=== PATIENT | male | born 1970 | race Caucasian/White ===

== ENCOUNTER 2024-10-28 13:10 | Outpatient (OUT) | payer MEDICAID, SELFPAY ==
[2024-10-28 13:29] LABS: Basophils Absolute Auto 0.2 10^3/uL (0.0-0.1); Basophils Percent Auto 1.2 % (0.2-2.0); Eosinophils Absolute Auto 0.3 10^3/uL (0.0-0.7); Eosinophils Percent Auto 2.4 % (0.9-7.0); Hemoglobin 14.3 g/dL (14.0-18.0); Immature Granulocytes Abs Auto 0.09 10^3/uL (0.00-0.03); Immature Granulocytes Pct Auto 0.7 % (0.0-0.5); Lymphocytes Absolute Auto 3.2 10^3/uL (1.2-3.8); Lymphocytes Percent Auto 24.9 % (20.5-60.0); Mean Corpuscular HGB Conc 33.3 g/dL (29.9-35.2); Mean Corpuscular Hemoglobin 30.4 pg (25.9-34.0); Mean Corpuscular Volume 91.5 fL (80.0-94.0); Mean Platelet Volume 8.8 fL (9.5-13.5); Monocytes Absolute Auto 1.4 10^3/uL (0.3-0.8); Monocytes Percent Auto 10.9 % (1.7-12.0); Neutrophils Absolute Auto 7.6 10^3/uL (1.4-6.5); Neutrophils Percent Auto 59.9 % (43.0-75.0); Platelet Count 411 10^3/uL (150-450); Red Cell Distribution Width 12.3 % (11.0-15.0); White Blood Count 12.7 10^3/uL (4.0-11.0)
[2024-10-28 13:48] LABS: Anion Gap 13.2; BUN Creatinine Ratio 14.7; Calcium 9.1 mg/dL (8.5-10.1); Carbon Dioxide 27.5 mmol/L (21.0-32.0); Chloride 103 mmol/L (98-107); Estimated GFR (African America >60 (>=60 mL/min/1.73m^2); Estimated GFR (Non-African Ame >60 (>=60 mL/min/1.73m^2); Glucose 123 mg/dL (74-106); Potassium 3.7 mmol/L (3.5-5.1); Sodium 140 mmol/L (136-145)
[2024-10-28 14:03] LABS: INR 1.02; Prothrombin Time 10.8 sec (9.0-11.6)
== END 2024-10-28 13:11 | disposition home or self-care (01) ==
LOC: LAB 13:12
PROVIDERS: PCP Family Medicine
DX: K40.90 Unilateral inguinal hernia, without obstruction or gangrene, not specified as recurrent (principal)
CPT/HCPCS: 36415; 80048; 85025; 85610; 87081

== ENCOUNTER 2024-11-20 13:33 | Outpatient (OUT) | payer MEDICAID, SELFPAY ==
[2024-11-20 14:09] LABS: Basophils Absolute Auto 0.1 10^3/uL (0.0-0.1); Basophils Percent Auto 0.9 % (0.2-2.0); Eosinophils Absolute Auto 0.2 10^3/uL (0.0-0.7); Eosinophils Percent Auto 1.2 % (0.9-7.0); Hematocrit 44.1 % (42.0-54.0); Hemoglobin 14.5 g/dL (14.0-18.0); Immature Granulocytes Abs Auto 0.06 10^3/uL (0.00-0.03); Immature Granulocytes Pct Auto 0.4 % (0.0-0.5); Lymphocytes Percent Auto 21.5 % (20.5-60.0); Mean Corpuscular HGB Conc 32.9 g/dL (29.9-35.2); Mean Corpuscular Hemoglobin 30.1 pg (25.9-34.0); Mean Corpuscular Volume 91.5 fL (80.0-94.0); Mean Platelet Volume 8.6 fL (9.5-13.5); Monocytes Absolute Auto 1.2 10^3/uL (0.3-0.8); Monocytes Percent Auto 8.7 % (1.7-12.0); Neutrophils Absolute Auto 9.3 10^3/uL (1.4-6.5); Neutrophils Percent Auto 67.3 % (43.0-75.0); Platelet Count 541 10^3/uL (150-450); Red Blood Count 4.82 10^6/uL (4.70-6.10); Red Cell Distribution Width 12.4 % (11.0-15.0); White Blood Count 13.9 10^3/uL (4.0-11.0)
[2024-11-20 14:22] LABS: Anion Gap 14.3; BUN Creatinine Ratio 9.5; Carbon Dioxide 26.1 mmol/L (21.0-32.0); Chloride 104 mmol/L (98-107); Estimated GFR (African America >60 (>=60 mL/min/1.73m^2); Estimated GFR (Non-African Ame >60 (>=60 mL/min/1.73m^2); Glucose 125 mg/dL (74-106); Magnesium 1.8 mg/dL (1.8-2.4); Potassium 3.4 mmol/L (3.5-5.1); Sodium 141 mmol/L (136-145)
== END 2024-11-20 13:34 | disposition home or self-care (01) ==
LOC: LAB 13:37
PROVIDERS: PCP Family Medicine
DX: I48.0 Paroxysmal atrial fibrillation (principal)
CPT/HCPCS: 36415; 80048; 83735; 85025

== ENCOUNTER 2025-03-15 15:24 | Outpatient (OUT) | payer OTHER, MEDICAID, SELFPAY ==
[2025-03-15 16:14] LABS: Hematocrit 45.6 % (42.0-54.0)
[2025-03-17 04:07] LABS: Estradiol 18.9 pg/mL (7.6-42.6); Luteinizing Hormone(LH) 3.9 mIU/mL (1.7-8.6); Testosterone 214 ng/dL (264-916)
== END 2025-03-15 15:25 | disposition home or self-care (01) ==
LOC: LAB 15:28
PROVIDERS: PCP Family Medicine; Visit Provider Urology
DX: E29.1 Testicular hypofunction (principal)
CPT/HCPCS: 36415; 82670; 83002; 84403; 85014

== ENCOUNTER 2025-04-16 12:52 | Outpatient (RCR) | payer OTHER, MEDICAID, SELFPAY | END 2025-07-01 06:53 | disposition home or self-care (01) | LOC: PT 12:52 | PROVIDERS: PCP Nurse Practitioner Family; Visit Provider Nurse Practitioner Family | DX: M25.512 Pain in left shoulder (principal) | CPT/HCPCS: 97014; 97110; 97112; 97140; 97163 ==

== ENCOUNTER 2025-05-04 12:33 | Outpatient (OUT) | payer OTHER, MEDICAID, SELFPAY ==
[2025-05-04 12:51] LABS: Hemoglobin 15.5 g/dL (14.0-18.0)
[2025-05-04] MEDS: ALBUTEROL SULFATE 2.5 MG/3 ML VIAL NEB IH (13:25)
--- NOTE | 2025-05-04 13:58 | CT_ITS ---
The [address] [address] Patient Name: REGIS ERNANDEZ MRN: [id number] date: 1970 Sex: M Assigned Patient Location: CARD Current Patient Location: Accession/Order Number: [id number] Exam Date: 05/05/2025 12:38 Report Date: 05/05/2025 12:44 At the request of: MICHEAL BEARDEN DO Procedure: CT lung screening low-dose CT Chest lung screening without contrast TECHNIQUE: Axial imaging with 2-D reconstruction. The CT exam was performed using one or more the following dose reduction techniques: Automated exposure control, adjustment of the MA and/or Kv according to patient size, or use of the iterative reconstruction technique. History: Lung screening. Current smoker COMPARISON: None THYROID: Unremarkable TRACHEA AND BRONCHI: Patent ESOPHAGUS: Unremarkable. HEART: Within normal limits PERICARDIAL EFFUSION: None CORONARY ARTERY CALCIFICATION: Moderate MEDIASTINUM: No adenopathy. No pneumoperitoneum. No mediastinal hematoma. PULMONARY JAVON: No hilar mass or adenopathy is seen. Calcified right hilar lymph nodes. Calcified right granuloma. THORACIC AORTA Unremarkable LUNG NODULE None LUNGS: Lungs are clear PLEURAL EFFUSION: None PNEUMOTHORAX: No pneumothorax seen. CHEST WALL: No abnormality AXILLA:Unremarkable BONY STRUCTURES Intact UPPER ABDOMEN: Images of the upper abdomen are noncontributory. CT/CT lung screening low-dose IMPRESSION: No visible lung nodule. FINAL ASSESSMENT: Negative. Lung-RADS Version 1.0 Assessment Category: 1 REMARKS: Continued annual screening with LDCT in 12 months is recommended. Impression dictated by: Chaka Hager M.D. 05/05/2025 12:44 PM Dictation Location: [employer] Electronically authenticated by: [id number] Y Date: 05/05/2025 12:44
--- OUTSIDE RECORDS SUMMARY | 2025-05-04 15:13 | XMS_ITS | CCD ---
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 Name Role Phone Kathy NOEL Primary Care Physician NILL ., DR LEON Admitting Unavailable NILL ., DR LEON Attending Unavailable MISC, DR CARCAMO Primary Care Unavailable NILL ., DR LEON Consulting Unavailable RAMESH MIRANDA Consulting Unavailable DIONNE NAVARRO Consulting Unavailable NILL ., DR LEON Admitting Unavailable NILL ., DR LEON Attending Unavailable MISC, DR CARCAMO Primary Care Unavailable SADIE, DR KATHY Petersen Admitting Unavailable SADIE, DR KATHY Petersen Attending Unavailable HOY ., DR CHARLES Admitting Unavailable HOY ., DR CHARLES Attending Unavailable MISC, DR CARCAMO Primary Care Unavailable MISC, DR CARCAMO Admitting Unavailable MISC, DR CARCAMO Attending Unavailable MISC, DR CARCAMO Primary Care Unavailable MISC, DR CARCAMO Consulting Unavailable ANA, CAMACHO Admitting Unavailable ANA CAMACHO Attending Unavailable MISC, DR CARCAMO Primary Care Unavailable MISC, DR CARCAMO Primary Care Unavailable HOY ., DR CHARLES Consulting Unavailable NADERER, DR JOSEPH Rae Admitting Unavailable NADERER, DR JOSEPH Rae Attending Unavailable SHANDRA ., DR ANDREW Rapp Consulting Unavailable RIMA, DR GERARDO Almanza Consulting Unavailable Kody Maciel Consulting Unavailable JOERER, DR JOSEPH Rae Consulting Unavailable RYDER .SHERITA Consulting Unavailruiz ARMENDARIZ .ELIDA Consulting Unavailable YEYO, ALYSSIA Consulting Unavailable SISTER, NINI Consulting Unavailable MISC, DR CARCAMO Primary Care Unavailable SHUKRI, DR RAVEN Nettles Consulting Unavailable HOY ., DR CHARLES Admitting Unavailable HOY ., DR CHARLES Attending Unavailable HOY ., DR CHARLES Consulting Unavailable TOMASZ NIEVES Consulting Unavailable GERARDO ROLLINS Attending Unavailable GERARDO ROLLINS Admitting Unavailable GIFTY RAMOS Consulting Unavailable GIDEON LUNA Primary Care Unavailable Gideon Luna MD Primary Care Provider Maxime Hull Primary Care Physician Wendy Zhong NP Unavailable Regis Guerrero DO Unavailable REGIS GUERRERO Attending Unavailable WENDY ZHONG Attending Unavailable Maxime Hull MD Primary Care Provider Varsha Peralta Attending Unavailable Maxime Hull Admitting Unavailable Maxime Hull Attending Unavailable Maxime Hull Attending Unavailable Maxime Hull Attending Unavailable Maxime Hull Attending Unavailable Maxime Hull Attending Unavailable No Pcp, No Pcp Primary Care Provider UnavailKathy Adams Primary Care Provider [phone] No Pcp, No Pcp Primary Care Provider UnavailNUNU Sun Admitting Unavailable TYLER PARKIN Attending Unavailable VIVIAN JIALANIIN Attending Unavailable NUNU PARK Attending Unavailable Maxime Hull MD Primary Care Provider Varsha Peralta Attending Unavailable Maxime Hull ESenthil Referring Unavailable Varsha Peralta Attending Unavailable Varsha Peralta Attending Unavailable Maxime Hull Admitting Unavailable Maxime Hull Attending Unavailable Maxime Hull Admitting Unavailable Maxime Hull Attending Unavailable Varsha Peralta Admitting Unavailable Varsha Peralta Attending Unavailable Edward URBAN Attending Unavailable Maxime Hull Referring Unavailable Maxime Hull Attending Unavailable Maxime Hull Attending Unavailable Maxime Hull Attending Unavailable Varsha Peralta MSenthil Attending Unavailable IRA, SERINA A Admitting Unavailable IRA, SERINA A Attending Unavailable IRA, SERINA A Attending Unavailable IRA, SERINA A Attending Unavailable Varsha Peralta MSenthil Admitting Unavailable Varsha Peralta MSenthil Attending Unavailable Varsha Peralta Referring Unavailable Allergies Allergy Classification Reported Allergen(s) Allergy Type Date of Onset Reaction(s) Facility (20 sources) busPIRone; 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: [buspirone] Drug Allergy 11-02-19 24 Nausea, Nausea Only [facility] (20 sources) gabapentin; 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: [gabapentin] Drug Allergy 11-02-19 24 Nausea, Nausea Only [facility] (20 sources) varenicline; 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: [varenicline] Drug Allergy 11-02-19 24 Palpitations, Nausea, Nausea Only [facility] (20 sources) venlafaxine; 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: [venlafaxine] Drug Allergy 11-02-19 24 Eruption of skin (disorder), Rash [facility] (1 source) busPIRone Drug Allergy [facility] (1 source) oneseed juniper pollen extract Drug Allergy [facility] (1 source) Sulfamethoxazole / Trimethoprim Drug Allergy 05-26-20 22 [facility] (1 source) varenicline Drug Allergy [facility] (18 sources) dilTIAZem Drug Allergy 10-21-19 24 Dizziness, Hypotension [facility] (18 sources) Sulfamethoxazole; 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: [SULFAMETHOXAZOLE] Drug Allergy 05-27-20 18 [facility] (19 sources) Sulfamethoxazole / Trimethoprim Drug Allergy 03-01-20 17 Itching [facility] (20 sources) Trimethoprim; 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: [TRIMETHOPRIM] Drug Allergy 05-27-20 18 [facility] (3 sources) dilTIAZem; 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: [DILTIAZEM] Drug Allergy 10-21-19 24 Dizziness, Other [facility] (2 sources) Sulfamethoxazole Propensity to adverse reactions 05-27-20 18 [facility] Medications Current Medications Medication Drug Class(es) Dates Sig (Normalized) Sig (Original) acetaminophen 500 mg oral tablet (18 sources) Start: 12-03-2023 take 1 tablet by mouth every six hours as needed for pain acetaminophen (TYLENOL EXTRA STRENGTH) 500 mg tablet Take 1 tablet (500 mg total) by mouth every 6 (six) hours as needed for pain. 30 tablet 12/03/2023 Active Start: 10-27-2023 take 1 tablet by ariel th every six hours as needed for pain acetaminophen (TYLENOL EXTRA STRENGTH) 500 mg tablet Take 1 tablet (500 mg total) by mouth every 6 (six) hours as needed for pain. 30 tablet 0 10/27/2023 Active Start: 10-21-2023 End: 10-22-2023 take 1 tablet by mouth every four hours as needed for pain and headache and fever acetaminophen (TYLENOL) tablet 650 mg alendronic acid 70 mg oral tablet (19 sources) Bisphosphonate Start: 09-28-2024 End: 10-12-2024 alendronate 70 mg Tab PLEASE SEE ATTACHED FOR DETAILED DIRECTIONS Start Date: 10/22/24 Status: Ordered Repeat number: 1 Start: 01-26-2021 Fosamax 70 mg Tab 70 mg = 1 tab(s), Oral, q7day, # 12 tab(s), Refills(s) 3 Start Date: 01/26/21 Status: Ordered amitriptyline hydrochloride 25 mg oral tablet (20 sources) Tricyclic Antidepressant Start: 07-20-2024 End: 07-20-2025 take 1 tablet by mouth in the morning amitriptyline (ELAVIL) 25 mg tablet Take 1 tablet (25 mg total) by mouth in the morning. 08/12/2024 Active Start: 01-26-2021 take 1 tablet by ariel th once daily at bedtime amitriptyline 50 mg Tab 50 mg = 1 tab(s), Oral, Once a day (at bedtime), # 90 tab(s), Refills(s) 0 Start Date: 01/26/21 Status: Ordered apixaban 5 mg oral tablet (20 sources) Factor Xa Inhibitor Start: 06-13-2022 End: 04-01-2024 take 1 tablet by mouth in the morning, then take 1 tablet by mouth at bedtime apixaban (ELIQUIS) 5 mg tablet Take 1 tablet (5 mg total) by mouth in the morning and 1 tablet (5 mg total) before bedtime. 60 tablet 04/01/2024 Active aspirin 81 mg chewable tablet (10 sources) Platelet Aggregation Inhibitor, Nonsteroidal Anti-inflammatory Drug Start: 11-21-2022 take 1 tablet by mouth once daily aspirin 81 mg Chew Tab 81 mg = 1 tab(s), Oral, Daily, # 30 tab(s), Refills(s) 3, Pharmacy: [facility]/pharmacy #[id number], 157, cm, 11/21/22 7:04:00 EST, Height/Length Dosing, 70.3, kg, 11/21/22 7:04:00 EST, Weight Dosing Start Date: 11/21/22 Status: Ordered Start: 08-24-2020 take 1 tablet by ariel th once daily aspirin 81 mg Oral EC Tab 81 mg = 1 tab(s), Oral, Daily, # 90 tab(s), Refills(s) 0 Start Date: 08/24/20 Status: Ordered atorvastatin 80 mg oral tablet (20 sources) HMG-CoA Reductase Inhibitor Start: 05-19-2024 take 1 tablet by mouth in the morning atorvastatin (LIPITOR) 80 mg tablet Take 1 tablet (80 mg total) by mouth in the morning. 90 tablet 3 05/19/2024 Active Start: 11-21-2022 End: 05-14-2024 take 1 tablet by mouth in the morning atorvastatin (LIPITOR) 80 mg tablet Take 1 tablet (80 mg total) by mouth in the morning. 90 tablet 3 05/19/2024 Active carBAMazepine 200 mg oral tablet (12 sources) Mood Stabilizer Start: 09-21-2020 take 1 tablet by mouth once daily carbamazepine 200 mg Tab 200 mg = 1 tab(s), Oral, Daily, Refills(s) 0 Start Date: 09/21/20 Status: Ordered clopidogrel 75 mg oral tablet (20 sources) P2Y12 Platelet Inhibitor Start: 07-03-2024 take 1 tablet by mouth in the morning clopidogreL (PLAVIX) 75 mg tablet Take 1 tablet (75 mg total) by mouth in the morning. 90 tablet 2 07/03/2024 Active Start: 05-19-2024 take 1 tablet by ariel th in the morning clopidogreL (PLAVIX) 75 mg tablet Take 1 tablet (75 mg total) by mouth in the morning. 90 tablet 3 05/19/2024 Active Start: 11-21-2022 End: 05-14-2024 take 1 tablet by mouth once daily clopidogrel 75 mg Tab 75 mg = 1 tab(s), Oral, Daily, # 90 tab(s), Refills(s) 3, Pharmacy: [facility]/pharmacy #[id number], 157, cm, 11/21/22 7:04:00 EST, Height/Length Dosing, 70.3, kg, 11/21/22 7:04:00 EST, Weight Dosing Start Date: 11/21/22 Status: Ordered Quantity: 90.0 Unit: tab(s) Repeat number: 4 dilTIAZem hydrochloride 30 mg oral tablet (10 sources) Calcium Channel Jolly Start: 06-13-2022 take 1 tablet by mouth three times daily diltiazem 30 mg Tab 30 mg = 1 tab(s), Oral, TID, Refills(s) 0 Start Date: 06/13/22 Status: Ordered empagliflozin 10 mg oral tablet (20 sources) Sodium-Glucose Cotransporter 2 Inhibitor Start: 04-23-2024 take 1 tablet by mouth in the morning empagliflozin (JARDIANCE) 10 mg tablet tablet Take 1 tablet (10 mg total) by mouth in the morning. 30 tablet 11 04/23/2024 Active methylphenidate hydrochloride 10 mg oral tablet (12 sources) Central Nervous System Stimulant Start: 08-24-2020 take 1 tablet by mouth twice daily Ritalin 10 mg oral tablet 10 mg = 1 tab(s), Oral, BID, Refills(s) 0 Start Date: 08/24/20 Status: Ordered 24 hr metoprolol succinate 100 mg extended release oral tablet (20 sources) beta-Adrenergic Jolly Start: 01-13-2025 take 1 tablet by mouth every twenty-four hours in the morning metoprolol succinate XL (TOPROL XL) 100 mg 24 hr tablet Take 1 tablet (100 mg total) by mouth in the morning. 90 tablet 3 01/13/2025 Active Start: 07-20-2024 take 1 tablet by ariel th once daily metoprolol succinate 50 mg ER Tab 50 mg = 1 tab(s), Oral, Daily, Refills(s) 0 Start Date: 07/20/24 Status: Ordered Repeat number: 1 Start: 12-03-2023 End: 01-13-2025 take 1 tablet by mouth every twenty-four hours in the morning metoprolol succinate XL (TOPROL XL) 50 mg 24 hr tablet Take 1 tablet (50 mg total) by mouth in the morning. 30 tablet 04/01/2024 01/13/2025 Discontinued Start: 11-08-2023 take 1 tablet by ariel th every twenty-four hours in the morning metoprolol succinate XL (TOPROL XL) 50 mg 24 hr tablet Take 1 tablet (50 mg total) by mouth in the morning. 90 tablet 3 11/08/2023 Active Start: 10-21-2023 End: 11-08-2023 take 1 tablet by mouth every twenty-four hours in the morning metoprolol succinate XL (TOPROL XL) 25 mg 24 hr tablet Take 1 tablet (25 mg total) by mouth in the morning. 30 tablet 1 10/23/2023 11/08/2023 Discontinued Start: 10-21-2023 End: 10-21-2023 metoprolol tartrate (LOPRESS OR) tablet 50 mg Start: 10-20-2023 End: 10-21-2023 metoprolol (LOPRESSOR) injec tion 5 mg sacubitril 24 mg / valsartan 26 mg oral tablet (19 sources) Angiotensin 2 Receptor Jolly Start: 07-20-2024 take 1 tablet by mouth twice daily Entresto 24 mg-26 mg oral tablet 1 tab(s), Oral, BID, Refill(s) 0 Start Date: 07/20/24 Status: Ordered Repeat number: 1 Start: 04-23-2024 take 1 tablet by ariel th in the morning sacubitriL-valsartan (ENTRESTO) 24-26 mg tablet Take 1 tablet by mouth in the morning and 1 tablet before bedtime. 60 tablet 11 04/23/2024 Active simethicone 125 mg chewable tablet (6 sources) Start: 01-12-2024 End: 08-26-2024 take 1 tablet by mouth every six hours as needed simethicone (MYLICON) 125 mg chewable tablet Chew 1 tablet (125 mg total) and swallow every 6 (six) hours as needed for flatulence. 30 tablet 01/12/2024 08/26/2024 Discontinued spironolactone 25 mg oral tablet (20 sources) Aldosterone Antagonist Start: 04-23-2024 End: 04-01-2025 take 1 tablet by mouth in the morning spironolactone (ALDACTONE) 25 mg tablet TAKE 1 TABLET BY MOUTH IN THE MORNING 90 tablet 2 04/01/2025 Active Symbicort 160/4.5 inhalation aerosol with adapter (13 sources) Start: 11-23-2024 take 2 puff(s) by inhalation twice daily Symbicort 160/4.5 inhalation aerosol with adapter 2 puff(s), Inhalation, BID, 10.3 gm, Refill(s) 0, [facility]/pharmacy #[id number], 155, cm, 11/23/24 14:48:00 EDT, Height/Length Dosing, 73.6, kg, 11/23/24 14:48:00 EDT, Weight Dosing Start Date: 11/23/24 Status: Ordered Quantity: 10.3 Unit: g Repeat number: 1 Indications: Obesity, unspecified; Body mass index [BMI] 30.0-30.9, adult; Other male erectile dysfunction; Mixed hyperlipidemia; Tobacco use; Chronic obstructive pulmonary disease, unspecified; Paroxysmal atrial fibrillation; Presence of coronary angioplasty implant and graft; Unilateral inguinal hernia, without obstruction or gangrene, not specified as recurrent; Prediabetes; Pain in left shoulder; Start: 07-10-2021 take 2 puff(s) by in halation twice daily Symbicort 160/4.5 inhalation aerosol with adapter 2 puff(s), Inhalation, BID, 3 EA, Refill(s) 1, [facility]/pharmacy #[id number], 158, cm, 09/21/20 14:58:00 EST, Height/Length Dosing, 74.3, kg, 09/21/20 14:58:00 EST, Weight Dosing Start Date: 07/10/21 Status: Ordered tamsulosin hydrochloride 0.4 mg oral capsule (7 sources) alpha-Adrenergic Jolly Start: 09-02-2024 take 1 capsule by mouth in the morning tamsulosin (FLOMAX) 0.4 mg capsule Take 1 capsule (0.4 mg total) by mouth in the morning. 09/02/2024 Active 60 actuat tiotropium 0.0025 mg/actuat inhalation spray (12 sources) Anticholinergic Start: 07-07-2021 take 2 puff(s) by inhalation once daily Spiriva Respimat 60 ACT 2.5 mcg/inh inhalation aerosol = 2 puff(s), Inhalation, Daily, # 3 EA, Refills(s) 1, Pharmacy: [facility]/pharmacy #[id number], 158, cm, 09/21/20 14:58:00 EST, Height/Length Dosing, 74.3, kg, 09/21/20 14:58:00 EST, Weight Dosing Start Date: 07/07/21 Status: Ordered traMADol hydrochloride 50 mg oral tablet (1 source) Opioid Agonist Start: 2023 take 1 tablet by mouth every six hours traMADOL 50 mg Tab 50 mg = 1 tab(s), Oral, q6hr, 20 day supply, # 30 tab(s), Refills(s) 0, Pharmacy: [facility]/pharmacy #[id number], 157.5, cm, 05/03/23 10:55:00 EDT, Height/Length Dosing, 65, kg, 05/03/23 10:55:00 EDT, Weight Dosing Start Date: 05/03/23 Status: Ordered zolpidem tartrate 10 mg oral tablet (12 sources) gamma-Aminobutyric Acid-ergic Agonist Start: 08-24-2020 take 5 mg by mouth once daily at bedtime as needed for sleep Ambien 10 mg Tab 5 mg = 0.5 tab(s), Oral, Once a day (at bedtime), PRN for sleep, Refills(s) 0 Start Date: 08/24/20 Status: Ordered Completed/Discontinued Medications Medication Drug Class(es) Dates Sig (Normalized) Sig (Original) Albuterol (Eqv-ProAir HFA) 90 mcg/inh inhalation aerosol (1 source) Start: 11-23-2024 take 18 g by inhalation every six hours Albuterol (Eqv-ProAir HFA) 90 mcg/inh inhalation aerosol 180 mcg, 2 inh, Inhalation, q6hr, 18 gm, Refill(s) 0, [facility]/pharmacy #[id number], 155, cm, 11/23/24 14:48:00 EDT, Height/Length Dosing, 73.6, kg, 11/23/24 14:48:00 EDT, Weight Dosing Start Date: 11/23/24 Status: Ordered Quantity: 18.0 Unit: g Repeat number: 1 Indications: Other male erectile dysfunction; Chronic obstructive pulmonary disease, unspecified; Tobacco use; Paroxysmal atrial fibrillation; Pain in left shoulder; Unilateral inguinal hernia, without obstruction or gangrene, not specified as recurrent; Body mass index [BMI] 30.0-30.9, adult; Mixed hyperlipidemia; Obesity, unspecified; Prediabetes; Presence of coronary angioplasty implant and graft; albuterol HFA 90 mcg/inh MDI (12 sources) Start: 2023 take 1 dose by inhalation every six hours albuterol HFA 90 mcg/inh MDI 2 puff(s), Inhalation, q6hr for wheezing, 1 EA, Refill(s) 0, [facility]/pharmacy #[id number], 157.5, cm, 05/03/23 10:55:00 EDT, Height/Length Dosing, 65, kg, 05/03/23 10:55:00 EDT, Weight Dosing Start Date: 05/03/23 Status: Ordered Start: 08-24-2020 take 1 dose by inhal ation every six hours albuterol HFA 90 mcg/inh MDI 2 puff(s), Inhalation, q6hr for wheezing, 1 EA, Refill(s) 0, [facility]/pharmacy #[id number], 158, cm, 08/24/20 14:09:00 EST, Height/Length Dosing, 74.6, kg, 08/24/20 14:09:00 EST, Weight Dosing Start Date: 08/24/20 Status: Ordered amiodarone hydrochloride 200 mg oral tablet (20 sources) Antiarrhythmic Start: 07-03-2024 End: 01-13-2025 take 1 tablet by mouth in the morning amiodarone (PACERONE) 200 mg tablet Take 1 tablet (200 mg total) by mouth in the morning. 90 tablet 2 07/03/2024 01/13/2025 Discontinued Start: 05-19-2024 take 1 tablet by ariel in the morning amiodarone (PACERONE) 200 mg tablet Take 1 tablet (200 mg total) by mouth in the morning. 90 tablet 3 05/19/2024 Active Start: 01-17-2024 End: 05-14-2024 take 1 tablet by mouth in the morning amiodarone (PACERONE) 200 mg tablet Take 1 tablet (200 mg total) by mouth in the morning. 30 tablet 04/01/2024 05/14/2024 Discontinued (Reorder) take 2 tablets by mo [facility] once daily amiodarone (Pacerone) 100 MG tablet Take 200 mg by mouth Daily Active benzonatate 100 mg oral capsule (3 sources) Non-narcotic Antitussive Start: 10-27-2023 End: 11-08-2023 take 1 capsule by mouth every eight hours benzonatate (TESSALON PERLES) 100 mg capsule Take 1 capsule (100 mg total) by mouth every 8 (eight) hours. 21 capsule 0 10/27/2023 11/08/2023 Discontinued 100 ml calcium gluconate 20 mg/ml injection (1 source) Start: 10-21-2023 End: 10-22-2023 calcium gluconate IVPB 2000 mg/100 mL (20 mg/mL premix) calcium gluconate 3,000 mg in sodium chloride 0.9 % 100 mL IVPB (1 source) Start: 10-21-2023 End: 10-22-2023 calcium gluconate 3,000 mg in sodium chloride 0.9 % 100 mL IVPB calcium gluconate 4,000 mg in sodium chloride 0.9 % 250 mL IVPB (1 source) Start: 10-21-2023 End: 10-22-2023 calcium gluconate 4,000 mg in sodium chloride 0.9 % 250 mL IVPB 2 ml digoxin 0.25 mg/ml injection (4 sources) Cardiac Glycoside Start: 10-21-2023 End: 10-21-2023 digoxin (LANOXIN) injection 250 mcg Start: 10-21-2023 End: 10-21-2023 digoxin (LANOXIN) injection 170 mcg Start: 06-13-2022 take 1 tablet by ariel th once daily digoxin 250 mcg (0.25 mg) Tab 250 mcg = 1 tab(s), Oral, Daily, Refills(s) 0 Start Date: 06/13/22 Status: Ordered docusate sodium 50 mg / sennosides, correction 8.6 mg oral tablet (1 source) Start: 10-21-2023 End: 10-22-2023 take 1 tablet by mouth every twelve hours as needed for constipation sennosides-docusate sodium (SENOKOT-S) 8.6-50 mg 1 tablet glucagon (rdna) 1 mg injection (1 source) Antihypoglycemic Agent Start: 10-21-2023 End: 10-22-2023 glucagon HCL injection 1 mg 150 ml glucose 50 mg/ml injection (3 sources) Start: 10-21-2023 End: 10-22-2023 dextrose (GLUTOSE) 40 % gel 15 g Start: 10-21-2023 End: 10-22-2023 dextrose 50 % in water (D50W ) 50% solution 25 mL Start: 10-21-2023 End: 10-22-2023 dextrose 5 % (D5W) infusion 1 ml heparin sodium, porcine 5000 unt/ml injection (1 source) Unfractionated Heparin, Anti-coagulant Start: 10-21-2023 End: 10-21-2023 heparin (porcine) injection 5,000 Units kit for Tc 99m-sestamibi injection 10 millicurie (1 source) Start: 10-22-2023 End: 10-22-2023 kit for Tc 99m-sestamibi injection 10 millicurie kit for Tc 99m-sestamibi injection 30 millicurie (1 source) Start: 10-22-2023 End: 10-22-2023 kit for Tc 99m-sestamibi injection 30 millicurie 50 ml magnesium sulfate 40 mg/ml injection (2 sources) Start: 10-21-2023 End: 10-22-2023 magnesium sulfate IVPB 2000 mg/50 mL in iso-osmotic water (40 mg/mL premix) Start: 10-21-2023 End: 10-22-2023 magnesium sulfate IVPB 4000 mg/100 mL in iso-osmotic water (40 mg/mL premix) metoprolol 1 mg/mL Inj (2 sources) Start: 11-21-2022 End: 11-21-2022 inject 5 mg intravenously once metoprolol 1 mg/mL Inj 5 mg = 5 mL, Injection, IV Push, Once, Stop date 11/21/22 13:27:00 EST, NOW, Start date 11/21/22 13:27:00 EST, 11/21/22 13:27:00 EST Start Date: 11/21/22 Stop Date: 11/21/22 Status: Completed Start: 11-21-2022 End: 11-21-2022 inject 5 mg intravenously once metoprolol 1 mg/mL Inj 5 mg = 5 mL, Injection, IV Push, Once, Stop date 11/21/22 10:55:00 EST, NOW, Start date 11/21/22 10:55:00 EST, 11/21/22 10:55:00 EST Start Date: 11/21/22 Stop Date: 11/21/22 Status: Completed 2 ml ondansetron 2 mg/ml injection (1 source) Serotonin-3 Receptor Antagonist Start: 10-21-2023 End: 10-22-2023 take 4 mg intravenously every eight hours as needed for nausea and vomiting ondansetron (PF) (ZOFRAN) injection 4 mg pantoprazole 40 mg delayed release oral tablet (1 source) Proton Pump Inhibitor Start: 10-21-2023 End: 10-22-2023 pantoprazole (PROTONIX) EC tablet 40 mg Potassium Chloride (1 source) Start: 10-21-2023 End: 10-22-2023 potassium chloride (KLOR-CON M 20) CR tablet 30-50 mEq regadenoson (LEXISCAN) injection 0.4 mg (1 source) Start: 10-22-2023 End: 10-22-2023 regadenoson (LEXISCAN) injection 0.4 mg 125 ml sodium chloride 9 mg/ml prefilled syringe (9 sources) Start: 10-20-2023 End: 10-22-2023 sodium chloride 0.9 % infusion Start: 10-20-2023 End: 10-22-2023 sodium chloride 0.9 % flush 3 mL sodium phosphate 20 mmol in sodium chloride 0.9 % 250 mL IVPB (1 source) Start: 10-21-2023 End: 10-22-2023 sodium phosphate 20 mmol in sodium chloride 0.9 % 250 mL IVPB Problems Active Problems Problem Classification Problem Date Documented Da te Episodic/Chronic Abdominal hernia (20 sources) Inguinal hernia; 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: [Unilateral inguinal hernia, without obstruction or gangrene, not specified as recurrent] Onset: 10-02-2022 Episodic Acute myocardial infarction (1 source) Non-ST elevation (NSTEMI) myocardial infarction; 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: [NON-ST ELEVATION MYOCARDIAL INFARCT] Onset: 07-23-2022 Chronic Alcohol-related disorders (18 sources) History of alcohol abuse 08-24-2020 Chronic Anal and rectal conditions (4 sources) Anorectal disorder; 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: [Other specified diseases of anus and rectum] Onset: 10-02-2022 Episodic Anxiety disorders (20 sources) Anxiety; 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: [Anxiety disorder, unspecified] Onset: 10-21-2023 08-06-2016 Chronic Asthma (20 sources) Asthma; 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: [Unspecified asthma, uncomplicated] Onset: 10-21-2023 08-08-2016 Chronic Calculus of urinary tract (11 sources) Kidney stone 08-24-2020 Episodic Cardiac dysrhythmias (20 sources) Paroxysmal atrial fibrillation; 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: [Paroxysmal atrial fibrillation] Onset: 05-13-2022 Resolved: 11-08-2023 Chronic Chronic obstructive pulmonary disease and bronchiectasis (20 sources) Panacinar emphysema; 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: [Panlobular emphysema] Onset: 05-13-2022 Chronic Coronary atherosclerosis and other heart disease (19 sources) Unstable angina; 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: [Coronary arteriosclerosis] Onset: 11-08-2023 11-08-2023 Chronic Coronary atherosclerosis and other heart disease (12 sources) Stent in anterior descending branch of left coronary artery 12-01-2022 Episodic Diabetes mellitus without complication (20 sources) Prediabetes; 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: [Prediabetes] Onset: 05-14-2022 Episodic Disorders of lipid metabolism (20 sources) Mixed hyperlipidemia; 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: [Hyperlipidemia, unspecified] Onset: 10-30-2022 04-16-2022 Chronic Gastrointestinal hemorrhage (8 sources) Rectal hemorrhage; 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: [Melena] Onset: 12-03-2022 06-24-2022 Episodic Genitourinary symptoms and ill-defined conditions (5 sources) Microscopic hematuria; 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: [Asymptomatic microscopic hematuria] Onset: 12-11-2022 Episodic Hyperplasia of prostate (13 sources) Benign prostatic hypertrophy with outflow obstruction; 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: [Benign prostatic hyperplasia with lower urinary tract symptoms] Onset: 12-11-2022 Chronic Nutritional deficiencies (18 sources) Decreased vitamin D 04-16-2022 Chronic Osteoarthritis (19 sources) Arthritis; 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: [Unspecified osteoarthritis, unspecified site] Onset: 07-23-2022 08-06-2016 Chronic Comment on above: neck Other aftercare (16 sources) Long-term current use of anticoagulant; 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: [manager terminal (current) use of anticoagulants] Onset: 09-02-2024 06-24-2022 Episodic Other aftercare (1 source) correction (current) use of anticoagulants; 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: [PALLIATIVE SENIOR NP CURRNT USE ANTICOAGULANTS] Onset: 10-30-2022 Episodic Other aftercare (1 source) Long-term current use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 Screen for colon cancer Patient Survey You may receive a survey via text or e-mail asking about your office visit. Please share your experience with us by completing your survey. We appreciate your feedback and thank you for choosing us for your care. [facility] Family Medicine Office/Clini c Noteon 10-22-2024 Family Medicine Office/Clini c Note Family Medicine Office/Clinic Note Chief Complaint 3m follow up Evaluation and management of chronic conditions and shoulder pain. HPI Staff 3m med follow up ALEJANDRO Referred to for hernia. [facility] completed 09/23/24. Then referred to [facility]. Consult completed 10/07/24. Scheduled for hernia surgery 11/02/24. Re referred to Urology. Who also referred to [facility] due to bladder involvement with inguinal hernia. Pt to continue Cardio follow ups for A fib & presence of cardiac stent. (potential ablation therapy). Scheduled for ablation 11/25/24. Hgb A1C %: 6.4 % High (07/20/24 14:10:00) Concerned with Lt shoulder. Unable to to fully move it for the past few wks. History of Present Illness The patient is a 54-year-old male presenting with chronic conditions and new shoulder pain. The patient has a history of paroxysmal atrial fibrillation, for which he is seeing a plastering supervisor and undergoing an ablation to prevent anticoagulation. He reports intermittent chest pain being addressed by cardiology. He continues use of medications including anticoagulants, and states compliance with Plavix and statins. The patient is also managing prediabetes and plans to undergo an A1C test today. Concerning respiratory issues, the patient reports frequent shortness of breath and has a history of COPD, noting decreased exercise tolerance with activities such as stair climbing. In the past, he has used Albuterol, Symbicort, and Spiriva, but these medications are now running low. Cymbicort was prescribed previously but is not currently on his medication list. The patient is a smoker, consuming about half a pack per day. He also reports shoulder pain that started approximately three weeks ago. The pain affects movements requiring reaching behind as well as movements across and above the shoulder. The patient does not report sleeping on this affected shoulder and describes stiffness and occasional immobilization, particularly severe in the mornings. - A1C test to monitor prediabetes. - Encouraged smoking cessation discussions, current use approximately half a pack per day. - Lung function evaluation and recommendation for possible pulmonology follow-up due to COPD and dyspnea on exertion. - Lipid panel testing to monitor hyperlipidemia status. - Referral to urology for erectile dysfunction evaluation. Review of Systems PHQ Score Initial Depression Screen Score: 0 SCORE Physical Exam Vitals & Measurements T: 36.9 ???C(Tympanic) HR: 85(Peripheral) RR: 18 BP: 136/84 SpO2: 98% HT: 61 in HT: 155 cm WT: 74.2 kg WT: 163.583 lb BMI: 30.88 General: alert, no acute distress ENMT: oral mucosa moist Cardiovascular: Regular rate and rhythm, normal peripheral perfusion, in sinus rhythm Respiratory: Lungs clear to auscultation, respirations non labored, reports frequent shortness of breath Extremities: no deformity, no trauma, right shoulder stiffness and pain with movement Neurological: oriented x 4, level of consciousness appropriate for age, CN II-XII intact, motor strength equal & normal bilaterally, speech normal Abdomen: Soft, Non-tender, Non-distended, + Bowel sounds Assessment/Plan 1. BMI 30.0-30.9,adult (Z68.30: Body mass index [BMI] 30.0-30.9, adult) Ordered: albuterol, 180 mcg, 2 inh, Inhalation, q6hr, 18 gm, Refill(s) 0, [id number], 155, cm, 10/22/24 14:06:00 EST, Height/Length Dosing, 74.2, kg, 10/22/24 14:06:00 EST, Weight Dosing budesonide-formoter ol, 2 puff(s), Inhalation, BID, 10.3 gm, Refill(s) 0, [id number], 155, cm, 10/22/24 14:06:00 EST, Height/Length Dosing, 74.2, kg, 10/22/24 14:06:00 EST, Weight Dosing [facility] External Ambulatory Referral Physical Therapy Evaluation - External Facility 2. Obesity (BMI 30-39.9) (E66.9: Obesity, unspecified) Monitor weight, emphasize importance of lifestyle modification including diet and exercise. Ordered: albuterol, 180 mcg, 2 inh, Inhalation, q6hr, 18 gm, Refill(s) 0, [id number], 155, cm, 10/22/24 14:06:00 EST, Height/Length Dosing, 74.2, kg, 10/22/24 14:06:00 EST, Weight Dosing budesonide-formoter ol, 2 puff(s), Inhalation, BID, 10.3 gm, Refill(s) 0, [id number], 155, cm, 10/22/24 14:06:00 EST, Height/Length Dosing, 74.2, kg, 10/22/24 14:06:00 EST, Weight Dosing [facility] External Ambulatory Referral Physical Therapy Evaluation - External Facility 3. Smoker (Z72.0: Tobacco use) Encouraged cessation, reduction can improve COPD and atrial fibrillation outcomes. Ordered: albuterol, 180 mcg, 2 inh, Inhalation, q6hr, 18 gm, Refill(s) 0, [id number], 155, cm, 10/22/24 14:06:00 EST, Height/Length Dosing, 74.2, kg, 10/22/24 14:06:00 EST, Weight Dosing budesonide-formoter ol, 2 puff(s), Inhalation, BID, 10.3 gm, Refill(s) 0, [id number], 155, cm, 10/22/24 14:06:00 EST, Height/Length Dosing, 74.2, kg, 10/22/24 14:06:00 EST, Weight Dosing [facility] External Ambulatory Referral Physical Therapy Evaluation - External Facility 4. Hyperlipemia, mixed (E78.2: Mixed hype (more content not included)... [facility] Comment on above: Result Comment: Elec tronically Signed By: Valerio LINDQUIST, Maxime Tolliver\.br\Date and Time Signed: 10/22/24 14:49 EST 36on 10-21-2024 36 Patient significant other called with update. Patient saw Cardiology 10/20/2024, please refer to cardiology office for clearance. Clearance received and surgery scheduled. 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 [facility] POCT EKGon 10-20-2024 [employer] 29on 10-07-2024 29 Addended by: MELANI CRAFT on: 10/07/2024 02:28 PM Modules accepted: Orders [facility] 29 Addended by: MELANI CRAFT on: 10/21/2024 11:36 AM Modules accepted: Orders [facility] Consulton 10-07-2024 Consult [id number] Otilio Horta 1970 M Date Provider Department Center 10/07/2024 [id number] SURG [place] Fl No family history on file Level of Service:62535 [place] OFFICE/OUTPATIENT NEW LOW MDM 30 MINUTES Reason for Visit and Comments: Consult [484] - Patient here for an eval/consult of his right reducible inguinal hernia. Patient reports discomfort and pain in the area. [facility] HPon 10-07-2024 HP Subjective Patient ID: Regis Horta is a 54 y.o. male who presents for Consult (Patient here for an eval/consult of his right reducible inguinal hernia. Patient reports discomfort and pain in the area. ). HPI 54 years old white male is visiting for right groin bulging and discomfort. He denies of nausea, vomiting, abdominal pain. Review of Systems Constitutional: Negative. HENT: Negative. Eyes: Negative. Respiratory: Negative. Cardiovascular: Negative. Gastrointestinal: Positive for abdominal pain. Endocrine: Negative. Genitourinary: Positive for difficulty urinating and frequency. Musculoskeletal: Negative. Skin: Negative. Allergic/Immunologi c: Negative. Neurological: Negative. Hematological: Bruises/bleeds easily. Objective Visit Vitals BP 133/83 (BP Location: Left arm, Patient Position: Sitting) Pulse 92 Temp 36.4 ???C (97.5 ???F) Resp 17 Physical Exam HENT: Head: Atraumatic. Cardiovascular: Rate and Rhythm: Normal rate. Pulmonary: Effort: Pulmonary effort is normal. Abdominal: General: Abdomen is flat. Palpations: Abdomen is soft. Hernia: A hernia is present. Comments: Reducible right inguinal hernia. Questionable left inguinal bulging. Musculoskeletal: Cervical back: Neck supple. Neurological: Mental Status: He is alert and oriented to person, place, and time. Assessment/Plan Right, possible bilateral inguinal hernia Robotic right possible bilateral inguinal hernia repair with mesh was offered to patient, informed consent was obtained. Patient need to hold Plavix 5 days before the surgery, Eliquis 2 days before the surgery. Patient need cardiac clearance. No diagnosis found. No orders of the defined types were placed in this encounter. No results found for this or any previous visit (from the past 36 hour(s)). No follow-ups on file. Normal [facility] General Surgery Office/Clini c Noteon 09-24-2024 General Surgery Office/Clini c Note General Surgery Office/Clinic Note Chief Complaint reevaluate hernia [facility] Staff 54 year old male presents on consultation from Dr. Hull to reevaluate right inguinal hernia. Last evaluation completed 09/2022. Patient was to have colonoscopy completed then return to office for reevaluation of hernia. In the interim, patient had cardiac stenting 11/2022 and was unable to hold anticoagulation therapy to proceed with surgery. CT abdomen/pelvis completed 12/2023 while in ED with herniation of bladder into inguinal canal. Patient continues on Plavix and Eliquis for a.fib. History of Present Illness 54 yo male with h/o CAD, paroxysmal atrial fibrillation, on Eliquis and Plavix, htn, hyperlipidemia, traumatic brain injury, narcolepsy, COPD, BPH, tobacco abuse, presents for reevaluation of right inguinal hernia; abd/pelvic ct scan done in [place] 12/2023 with fat containing right inguinal hernia, also portion of bladder within hernia; discomfort prior to urination, relieved after urinating; hernia reducible, no skin changes, no N/V or bowel changes; on Plavix and Eliquis, no NSAID use; patient to have cardiac ablation in November; smokes 1 ppd. Review of Systems PHQ Score Initial Depression Screen Score: 0 SCORE ROS - Provider Constitutional: no fever, no sweats, no weight loss. Eyes: no glasses, no blurred vision, no visual loss. ENMT: no dentures, no hoarseness, no swallowing difficulties, no hearing loss, no ear infection(s), no nose bleeds. Cardiovascular: normal blood pressure, no chest pain, regular heartbeat, no heart murmur. Respiratory: no shortness of breath, no cough, no asthma, no wheezing. Gastrointestinal: no nausea, no vomiting, no diarrhea, no constipation, no blood in stool, no change in bowel habits, no abdominal pain, no hepatitis. Genitourinary: no kidney stones, no urine infection, no dysuria. Musculoskeletal: no pain, no weakness. Skin: no changing moles, no rash, no skin lumps. Neurologic: no seizures, no epilepsy, no headache. Psychiatric: no emotional or psychiatric problem. Heme/Lymph: no bleeding problems, no anemia, no blood clots, no transfusions. Allergy/Immunologic : no swollen lymph nodes/glands, no IV drug abuse. Other: Additional ROS info: Except as noted in the above Review of Systems and in the History of Present Illness, all other systems have been reviewed and are negative or noncontributory. Physical Exam Vitals & Measurements HR: 72(Peripheral) RR: 16 BP: 111/76 HT: 61 in HT: 155 cm WT: 74.9 kg WT: 165.126 lb BMI: 31.18 HEENT: normal conjunctiva, sclera clear, no scleral icterus, EOM intact, PERRLA, oral mucosa moist without lesions. Neck: trachea midline, no mass, symmetric, no thyromegaly or nodules, no adenopathy Respiratory: lungs CTA, respirations non labored. Cardiovascular: regular rate and rhythm, no murmur, no pedal edema or varicosities. Gastrointestinal: obese, soft, non distended, no tenderness, no masses, reducible right inguinal hernia, nontender, no skin changes, very small reducible left inguinal hernia; diastasis recti no, no hepatosplenomegaly; normal bs Lymphatic: no cervical adenopathy, no supraclavicular adenopathy, no inguinal adenopathy. Musculoskeletal: normal gait, digits and nails without infection, nodes, cyanosis, clubbing. Skin: no rashes, no lesions, no ulcers, no subcutaneous nodules, induration. Psychiatric/Neuro: oriented to time, place, person, judgement normal, affect appropriate for age, insight intact, no focal deficits. Tests: , x-rays reviewed, review of old records completed , Assessment/Plan 1. Reducible right inguinal hernia (K40.90: Unilateral inguinal hernia, without obstruction or gangrene, not specified as recurrent) patient high risk for elective repair given cardiac disease, anticoagulation, COPD, tobacco abuse and obesity; will refer to [facility], where patient's Cardiologists are also available; call with problems/questions. Ordered: [facility] External Ambulatory Referral 2. Tobacco abuse (Z72.0: Tobacco use) We strongly recommend to quit tobacco use. Cigarette smoking harms nearly every organ of the body, causes many diseases, and reduces the health of smokers in general. Quitting smoking lowers your risk for smoking-related diseases and can add years to your life. We encourage you to visit www.smokefree.gov access to helpful resources including free telephone support. If you decide on prescription treatment to help you quit, your family doctor would be happy to provide these. Ordered: [facility] External Ambulatory Referral Follow-up No qualifying data available Problem List/Past Medical History Ongoing Anticoagulated Antiplatelet or antithrombotic long-term use Asymptomatic microscopic hematuria BMI 31.0-31.9,adult BPH with urinary obstruction Cervicalgia Chronic anticoagulation Complex regional pain syndrome of both lower extremities Degenerative arthritis of lumbar spine Elevated PSA Family history o (more content not included)... [facility] Comment on above: Result Comment: Elec tronically Signed By: WILMAR LINDQUIST, Edward Nettles\.br\Date and Time Signed: 09/24/24 08:23 EST Ambulatory Visit Summaryon 0 09-23-2024 Ambulatory Visit Summary Ambulatory Visi t Summary REGIS HORTA :1970 Visit Date:09/23/2024 Ambulatory Visit Instructions Your Care Team Attending Physician - Edward URBAN MD Primary Care Physician - Maxime Hull MD Referring Physician - Maxime Hull MD This Is Your Medications List Contact prescribing physician if questions or concerns amiodarone (amiodarone 200 mg Tab) apixaban (Eliquis 5 mg oral tablet) atorvastatin (atorvastatin 80 mg Tab) clopidogrel (clopidogrel 75 mg Tab) empagliflozin (Jardiance 10 mg oral tablet) metoprolol (metoprolol succinate 50 mg ER Tab) sacubitril-valsarta n (Entresto 24 mg-26 mg oral tablet) spironolactone (spironolactone 25 mg Tab) tamsulosin (tamsulosin 0.4 mg Cap) Procedures Performed PCI (percutaneous coronary intervention) of left anterior descending branch of coronary artery (11/21/2022), Colonoscopy (10/24/2022), Laser removal of genital warts (08/08/2016), dental extractions (03/16/2016), Asthma, Atrial fibrillation, Cardiac catheter, Cardiac catheterization, Cardiac catheterization, COPD - Chronic obstructive pulmonary disease, epi-dural blocks, Hyperlipidemia, Hypertension, Reconstruction of facial bones, Stented artery, Vasectomy, unilateral or bilateral (separate procedure), including postoperative semen examination(s). Discharge Vitals Heart Rate (Peripheral) 72 Respiratory Rate 16 Blood Pressure 111/76 Height 155 cm Height 61 in Weight 74.9 kg Weight 165.126 lb BMI 31.18 What to do next Scheduled Follow-Up Appointments Saturday 1:15 PM EST With: Maxime Hull MD Where: [address] [address]- Saturday 10:45 AM EDT With: Fabian LINDQUIST, Varsha Rogers Where: [facility] [address] [place] [address]- Medications What How Much When Instructions Unchanged amiodarone (amiodarone 200 mg Tab) 1 Tablets By Mouth Every day Contact prescribing physician if questions or concerns Unchanged apixaban (Eliquis 5 mg oral tablet) 1 Tablets By Mouth 2 times a day Contact prescribing physician if questions or concerns Unchanged atorvastatin (atorvastatin 80 mg Tab) 1 Tablets By Mouth Every day Contact prescribing physician if questions or concerns Unchanged clopidogrel (clopidogrel 75 mg Tab) 1 Tablets By Mouth Every day Contact prescribing physician if questions or concerns Unchanged empagliflozin (Jardiance 10 mg oral tablet) 1 Tablets By Mouth Once a day (in the morning) Contact prescribing physician if questions or concerns Unchanged metoprolol (metoprolol succinate 50 mg ER Tab) 1 Tablets By Mouth Every day Contact prescribing physician if questions or concerns Unchanged sacubitril-valsarta n (Entresto 24 mg-26 mg oral tablet) 1 Tablets By Mouth 2 times a day Contact prescribing physician if questions or concerns Unchanged spironolactone (spironolactone 25 mg Tab) 1 Tablets By Mouth Every day Contact prescribing physician if questions or concerns Unchanged tamsulosin (tamsulosin 0.4 mg Cap) 1 Capsules By Mouth Every day 30 minutes after the same meal Contact prescribing physician if questions or concerns Allergies BuSpar (Nausea) Chantix (Nausea, Heart palpitations) gabapentin (Nausea) venlafaxine (Rash) Problems Ongoing - Any problem that you are currently receiving treatment for. 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 Screen for colon cancer Patient Survey You may receive a survey via text or e-mail asking about your office visit. Please share your experience with us by completing your survey. We appreciate your feedback and thank you for choosing us for your care. [facility] Ambulatory Visit Summaryon 1 09-19-2023 Ambulatory Visit Summary Ambulatory Visi t Summary REGIS HORTA :1970 Visit Date:07/20/2024 Ambulatory Visit Instructions Your Diagnosis Panlobular emphysema Paroxysmal atrial fibrillation Prediabetes Elevated PSA Reducible right inguinal hernia Presence of stent in LAD coronary artery BMI 29.0-29.9,adult Overweight Smoker Your Care Team Attending Physician - Maxime Hull MD Primary Care Physician - Maxime Hull MD This Is Your Medications List amiodarone (amiodarone 200 mg Tab) apixaban (Eliquis 5 mg oral tablet) atorvastatin (atorvastatin 80 mg Tab) clopidogrel (clopidogrel 75 mg Tab) empagliflozin (Jardiance 10 mg oral tablet) metoprolol (metoprolol succinate 50 mg ER Tab) sacubitril-valsarta n (Entresto 24 mg-26 mg oral tablet) spironolactone (spironolactone 25 mg Tab) Procedures Performed PCI (percutaneous coronary intervention) of left anterior descending branch of coronary artery (11/21/2022), Colonoscopy (10/24/2022), Laser removal of genital warts (08/08/2016), dental extractions (03/16/2016), Cardiac catheter, Cardiac catheterization, Cardiac catheterization, epi-dural blocks, Reconstruction of facial bones, Stented artery, Vasectomy, unilateral or bilateral (separate procedure), including postoperative semen examination(s). Discharge Vitals Temperature (Temporal Artery) 37.0 ???C Heart Rate (Peripheral) 80 Respiratory Rate 16 Blood Pressure 112/70 Height 157 cm Height 62 in Weight 72.5 kg Weight 159.5 lb BMI 29.41 What to do next Scheduled Follow-Up Appointments Saturday 1:15 PM EST With: Maxime Hull MD Where: [address] [address]- Medications What How Much When Instructions Unchanged amiodarone (amiodarone 200 mg Tab) 1 Tablets By Mouth Every day Unchanged apixaban (Eliquis 5 mg oral tablet) 1 Tablets By Mouth 2 times a day Unchanged atorvastatin (atorvastatin 80 mg Tab) 1 Tablets By Mouth Every day Unchanged clopidogrel (clopidogrel 75 mg Tab) 1 Tablets By Mouth Every day Unchanged empagliflozin (Jardiance 10 mg oral tablet) 1 Tablets By Mouth Once a day (in the morning) Unchanged metoprolol (metoprolol succinate 50 mg ER Tab) 1 Tablets By Mouth Every day Unchanged sacubitril-valsarta n (Entresto 24 mg-26 mg oral tablet) 1 Tablets By Mouth 2 times a day Unchanged spironolactone (spironolactone 25 mg Tab) 1 Tablets By Mouth Every day Allergies BuSpar (Nausea) Chantix (Nausea, Heart palpitations) gabapentin (Nausea) venlafaxine (Rash) Problems Ongoing - Any problem that you are currently receiving treatment for. 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 Screen for colon cancer Patient Survey You may receive a survey via text or e-mail asking about your office visit. Please share your experience with us by completing your survey. We appreciate your feedback and thank you for choosing us for your care. Normal [facility] CBC w/ Auto Diffon 4 Basophils/100 WBC (Bld) 0.8 % Normal 0.0-2.0 [facility] Comment on above: Performed By: #### 2 [id number] #### [facility] [address] [place] [address] Basophils/Leukocytes Auto (Bld) [Pure # fraction] 0.1 E9/L Normal 0.0-0.2 [facility] Comment on above: Performed By: #### 2 [id number] #### [facility] [address] [place] [address] Eosinophils (Bld) [#/Vol] 0.1 E9/L Normal 0.0-0.5 [facility] Comment on above: Performed By: #### 2 [id number] #### [facility] [address] [place] [address] Eosinophils/100 WBC (Bld) 1.7 % Normal 0.0-8.0 [facility] Comment on above: Performed By: #### 2 [id number] #### [facility] [address] [place] [address] Erythrocyte distribution wid th (RBC) [Ratio] 13.6 % Normal 10.9-14.2 [facility] Comment on above: Performed By: #### 2 [id number] #### [facility] [address] [place] [address] Hematocrit (Bld) [Volume fraction] 44.0 % Normal 37.7-49.0 [facility] Comment on above: Performed By: #### 2 [id number] #### [facility] [address] [place] [address] Hemoglobin (Bld) [Mass/Vol] 15.2 g/dL Normal 13.5-17. 5 [facility] Comment on above: Performed By: #### 2 [id number] #### [facility] [address] [place] [address] Lymphocytes (Bld) [#/Vol] 2.1 E9/L Normal 1.0-4.0 [facility] Comment on above: Performed By: #### 2 [id number] #### [facility] [address] [place] [address] Lymphocytes/100 WBC (Bld) 24.2 % Normal 14.0-50.0 [facility] Comment on above: Performed By: #### 2 [id number] #### [facility] [address] [place] [address] MCH (RBC) [Entitic mass] 31.7 pg Normal 27.0-34.0 [facility] Comment on above: Performed By: #### 2 [id number] #### [facility] [address] [place] [address] MCHC (RBC) [Mass/Vol] 34.6 g/dL Normal 31.4-36.0 [facility] Comment on above: Performed By: #### 2 [id number] #### [facility] [address] [place] [address] MCV (RBC) [Entitic vol] 91.6 fL Normal 80.0-100.0 [facility] Comment on above: Performed By: #### 2 [id number] #### [facility] [address] [place] [address] Monocytes (Bld) [#/Vol] 0.6 E9/L Normal 0.2-1.0 [facility] Comment on above: Performed By: #### 2 [id number] #### [facility] [address] [place] [address] Neutrophils (Bld) [#/Vol] 5.7 E9/L Normal 2.0-7.5 [facility] Comment on above: Performed By: #### 2 [id number] #### [facility] [address] [place] [address] Neutrophils/100 WBC (Bld) 66.7 % Normal 36.0-75.0 [facility] Comment on above: Performed By: #### 2 [id number] #### [facility] [address] [place] [address] Platelet mean volume (Bld) [Entitic vol] 7.7 fL Normal 6.4-10.8 [facility] Comment on above: Performed By: #### 2 [id number] #### [facility] [address] [place] [address] Platelets (Bld) [#/Vol] 371.0 E9/L Normal 150. 0-500. 0 [facility] Comment on above: Performed By: #### 2 [id number] #### [facility] [address] [place] [address] RBC (Bld) [#/Vol] 4.8 E12/L Normal 4.3-5.9 [facility] Comment on above: Performed By: #### 2 [id number] #### [facility] [address] [place] [address] WBC corrected for nucl RBC Auto (Bld) [#/Vol] 8.5 E9/L Normal 4.0-11.0 [facility] Comment on above: Performed By: #### 2 [id number] #### [facility] [address] [place] [address] Family Medicine Office/Clini c Noteon 07-20-2024 Family Medicine Office/Clini c Note Family Medicine Office/Clinic Note Chief Complaint Pain related to right inguinal hernia HPI Staff Regis is a 54 year old male presenting for acute visit Acute: hernia getting bigger and painful, right side groin confirmed but having alot of pain on the left side and that feels more like he's strained it. Currently in a senior care house finishing out a sentence. Will go home Sep 05. On [facility] for [facility] powers today History of Present Illness The patient is a 54-year-old male presenting with a reducible right inguinal hernia. He reports ongoing pain associated with the hernia, which has been problematic despite being able to manually reduce it. The patient notes an increase in pain and occasional difficulties with urination, which require him to press on his pelvic area to facilitate bladder emptying. He underwent a CT scan of the abdomen and pelvis on January 11, which indicated bladder involvement with herniation. Additionally, he has reported a sensation of strain in the same area potentially indicating another hernia development. The patient mentions an upcoming heart consultation in August regarding potential ablation therapy. He indicates residing in a senior care house and the necessity for scheduled approvals to attend medical appointments. The patient is a smoker, currently consuming about half a pack of cigarettes per day. Review of Systems PHQ Score Initial Depression Screen Score: 0 SCORE Physical Exam Vitals & Measurements T: 37.0 ???C(Temporal Artery) HR: 80(Peripheral) RR: 16 BP: 112/70 SpO2: 96% HT: 62 in HT: 157 cm WT: 72.5 kg WT: 159.5 lb BMI: 29.41 General: alert, no acute distress ENMT: oral mucosa moist Cardiovascular: Regular rate and rhythm, normal peripheral perfusion Respiratory: Lungs clear to auscultation, respirations non labored Extremities: no deformity, no trauma Neurological: oriented x 4, level of consciousness appropriate for age, CN II-XII intact, motor strength equal & normal bilaterally, speech normal Abdomen: Soft, Non-tender, Non-distended, + Bowel sounds Assessment/Plan 1. Panlobular emphysema (J43.1: Panlobular emphysema) Encourage smoking cessation. Evaluate the need for pulmonary intervention based on symptomatic progress over time. Ordered: Body Mass Index (BMI) documented 3008F CBC w/ Auto Diff Current tobacco smoker 1034F Depression Screening Negative 3352F [facility] Internal Ambulatory Referral [facility] Internal Ambulatory Referral HgbA1c Lipid Panel Most recent diastolic blood pressure <80 mm Hg 3078F PSA Screen, Total Systolic BP <130 mm Hg (Most Recent) 3074F 2. Paroxysmal atrial fibrillation (I48.0: Paroxysmal atrial fibrillation) Continue cardiology follow-up. Plan for Kiran consultation for potential ablation therapy. Ordered: Body Mass Index (BMI) documented 3008F CBC w/ Auto Diff Current tobacco smoker 1034F Depression Screening Negative 3352F [facility] Internal Ambulatory Referral [facility] Internal Ambulatory Referral HgbA1c Lipid Panel Most recent diastolic blood pressure <80 mm Hg 3078F PSA Screen, Total Systolic BP <130 mm Hg (Most Recent) 3074F 3. Prediabetes (R73.03: Prediabetes) Labs ordered. Follow up in 3 months Ordered: Body Mass Index (BMI) documented 3008F CBC w/ Auto Diff Current tobacco smoker 1034F Depression Screening Negative 3352F [facility] Internal Ambulatory Referral [facility] Internal Ambulatory Referral HgbA1c Lipid Panel Most recent diastolic blood pressure <80 mm Hg 3078F PSA Screen, Total Systolic BP <130 mm Hg (Most Recent) 3074F 4. Elevated PSA (R97.20: Elevated prostate specific antigen [PSA]) Referral to urology for further evaluation and management of elevated PSA levels. Ordered: Body Mass Index (BMI) documented 3008F CBC w/ Auto Diff Current tobacco smoker 1034F Depression Screening Negative 3352F [facility] Internal Ambulatory Referral [facility] Internal Ambulatory Referral HgbA1c Lipid Panel Most recent diastolic blood pressure <80 mm Hg 3078F PSA Screen, Total Systolic BP <130 mm Hg (Most Recent) 3074F 5. Reducible right inguinal hernia (K40.90: Unilateral inguinal hernia, without obstruction or gangrene, not specified as recurrent) Refer for surgical consultation. Address symptoms including urinary frequency and associated bladder involvement, and coordinate with urology for concurrent management. Ordered: Body Mass Index (BMI) documented 3008F CBC w/ Auto Diff Current tobacco smoker 1034F Depression Screening Negative 3352F [facility] Internal Ambulatory Referral [facility] Internal Ambulatory Referral HgbA1c Lipid Panel Most recent diastolic blood pressure <80 mm Hg 3078F PSA Screen, Total Systolic BP <130 mm Hg (Most Recent) 3074F 6. Presence of stent in LAD coronary artery (Z95.5: Presence of coronary angioplasty implant and graft) Continue seeing Cardiology. Follow up PRN Ordered: Body Mass Index (BMI) documented 3008F CBC w/ Auto Diff Current tobacco sm (more content not included)... Normal [facility] Comment on above: Result Comment: Elec tronically Signed By: Valerio LINDQUIST, Maxime Tolliver\.br\Date and Time Signed: 07/20/24 13:58 EST HvgC2unt 07-20-2024 HbA1c (Bld) [Mass fraction] 6.4 % High <=5.9 [facility] Comment on above: Performed By: #### 7 [id number] ####[facility] [address] [place] [address] Laboratory - Chemistry and C hemistry - challengeOrdered By: SYSTEM SYSTEM on 07-20-2024 Cholesterol [Mass/Vol] 143 mg/dL Normal 120 - 200 mg/dL [facility] Cholesterol in HDL [Mass/Vol] 37 mg/dL In valid Interpretation Code [facility] Comment on above: Result Comment: '>= 60 LOW RISK' '<= 40 HIGH RISK' Cholesterol in LDL [Mass/Vol] 79 mg/dL Normal <=129m g/dL [facility] Cholesterol in VLDL [Mass/Vol] 60 mg/dL High 7 - 40 mg/dL [facility] Prostate specific Ag [Mass/Vol] 1.0 ng/mL Normal 0.1 - 3.5 ng/mL [facility] Comment on above: Interpretive Data: T he concentration of PSA determined by different manufacturers can vary due to differences in assay methods and reagent specificity. Values obtained from different assay methods cannot be used interchangeably. The methodology used for this result was chemiluminescence using [employer]'s Access Hybritech PSA reagent. Triglyceride [Mass/Vol] 299 mg/dL High <=149mg/dL [facility] Laboratory - Hematology and Cell countsOrdered By: SYSTEM SYSTEM on 07-20-2024 Basophils/100 WBC (Bld) 0.8 % Normal 0.0 - 2.0 % [facility] Basophils/Leukocytes Auto (Bld) [Pure # fraction] 0.1 E9/L Normal 0.0 - 0.2 E9/L [facility] Eosinophils (Bld) [#/Vol] 0.1 E9/L Normal 0. 0 - 0.5 E9/L [facility] Eosinophils/100 WBC (Bld) 1.7 % Normal 0. 0 - 8.0 % [facility] Erythrocyte distribution wid th (RBC) [Ratio] 13.6 % Normal 10.9 - 14.2 % [facility] Hematocrit (Bld) [Volume fraction] 44.0 % Normal 37.7 - 49.0 % [facility] Hemoglobin (Bld) [Mass/Vol] 15.2 g/dL Normal 13.5 - 17.5 gm/dL [facility] Lymphocytes (Bld) [#/Vol] 2.1 E9/L Normal 1. 0 - 4.0 E9/L [facility] Lymphocytes/100 WBC (Bld) 24.2 % Normal 14 .0 - 50.0 % [facility] MCH (RBC) [Entitic mass] 31.7 pg Normal 27. 0 - 34.0 pg [facility] MCHC (RBC) [Mass/Vol] 34.6 g/dL Normal 31.4 - 36.0 gm/dL [facility] MCV (RBC) [Entitic vol] 91.6 fL Normal 80.0 - 100.0 fL [facility] Monocytes (Bld) [#/Vol] 0.6 E9/L Normal 0.2 - 1.0 E9/L [facility] Monocytes/100 WBC (Bld) 6.6 % Normal 4.0 - 14.0 % [facility] Neutrophils (Bld) [#/Vol] 5.7 E9/L Normal 2. 0 - 7.5 E9/L [facility] Neutrophils/100 WBC (Bld) 66.7 % Normal 36 .0 - 75.0 % [facility] Platelet mean volume (Bld) [Entitic vol] 7.7 fL Normal 6.4 - 10.8 fL [facility] Platelets (Bld) [#/Vol] 371.0 E9/L Normal 150. 0 - 500.0 E9/L [facility] RBC (Bld) [#/Vol] 4.8 E12/L Normal 4.3 - 5.9 E12/L [facility] WBC corrected for nucl RBC Auto (Bld) [#/Vol] 8.5 E9/L Normal 4.0 - 11.0 E9/L [facility] Laboratory - Hematology and Cell countsOrdered By: Ab Rodriguez on 07-20-2024 HbA1c (Bld) [Mass fraction] 6.4 % High <=5.9% [facility] ChemAutoSS Lipid Panelon 07-20-2024 Cholesterol [Mass/Vol] 143 mg/dL Normal 120-200 [facility] Comment on above: Performed By: #### 2 [id number] #### [facility] [address] [place] [address] Cholesterol in HDL [Mass/Vol] 37 mg/dL In valid Interpretation Code [facility] Comment on above: Result Comment: '>= 60 LOW RISK' '<= 40 HIGH RISK' Performed By: #### 2 [id number] #### [facility] [address] [place] [address] Cholesterol in LDL [Mass/Vol] 79 mg/dL Normal <=129 [facility] Comment on above: Performed By: #### 2 [id number] #### [facility] [address] [place] [address] Cholesterol in VLDL [Mass/Vol] 60 mg/dL High 7-40 [facility] Comment on above: Performed By: #### 2 [id number] #### [facility] [address] [place] [address] Triglyceride [Mass/Vol] 299 mg/dL High <=149 [facility] Comment on above: Performed By: #### 2 [id number] #### [facility] [address] [place] [address] PSA Screen, Totalon 07-20-20 24 Prostate specific Ag [Mass/Vol] 1.0 ng/mL Normal 0.1-3.5 [facility] Comment on above: Result Comment: The concentration of PSA determined by different manufacturers can vary due to differences in assay methods and reagent specificity. Values obtained from different assay methods cannot be used interchangeably. The methodology used for this result was chemiluminescence using [employer]'s Access Hybritech PSA reagent. Performed By: #### 1 [id number] #### [facility] [address] [place] [address] Patient Letter FTon 2023 Patient Letter [facility] Patient Letter [facility] July 20, 20[address]IS [address]A [address] [place] [id number] : 1970 Jimbo did have an appoinment today @ 1:[address] Maxime Hull M.D. [place] [id number] Normal [facility] CBC with Diffon 04-02-2024 Abs. Basophil 0.10 k/uL Normal 0.00-0.20 [facility] Comment on above: Performed By: #### C P, CDP, TROPI #### [facility] [place], [place] [id number] [employer] Molding Machine Tender: Roderick Ricardo MD Abs.Imm.Granulocyte 0.04 k/uL Normal 0.00-0.30 [facility] Comment on above: Performed By: #### C P, CDP, TROPI #### [facility] [address] [place], [place] [id number] [employer] Machine Tender: Roderick Ricardo MD Abs.Neutrophil (Seg) 5.90 k/uL Normal 1.50-8.10 [facility] Comment on above: Performed By: #### C P, CDP, TROPI #### [address] [address] [employer] Tender: Roderick Ricardo MD Basophils/100 WBC (Bld) 1 % Normal 0-2 [facility] Comment on above: Performed By: #### C P, CDP, TROPI #### [address] [address] [employer] Tender: Roderick Ricardo MD Eosinophils (Bld) [#/Vol] 0.09 10*3/uL Normal 0.00-0.4 4 [facility] Comment on above: Performed By: #### C P, CDP, TROPI #### [address] [address] [employer] Machine Tender: Roderick Ricardo MD Eosinophils/100 WBC (Bld) 1 % Normal 1-4 [facility] Comment on above: Performed By: #### C P, CDP, TROPI #### [address] [address] [employer] Machine Tender: Roderick Ricardo MD Erythrocyte distribution wid th (RBC) [Ratio] 11.9 % Normal 11.8-14.4 [facility] Comment on above: Performed By: #### C P, CDP, TROPI #### [address] [address] [employer] Tender: Roderick Ricardo MD Hematocrit (Bld) [Volume fraction] 44.7 % Normal 40.7-50.3 [facility] Comment on above: Performed By: #### C P, CDP, TROPI #### [address] [address] [employer] Tender: Roderick Ricardo MD Hemoglobin (Bld) [Mass/Vol] 15.4 g/dL Normal 13.0-17. 0 [facility] Comment on above: Performed By: #### C P, CDP, TROPI #### [address] [address] [employer] Tender: Roderick Ricardo MD Immature granulocytes/100 WB C (Bld) 0 % Normal 0 [facility] Comment on above: Performed By: #### C P, CDP, TROPI #### [address] [address] [employer] Machine Tender: Roderick Ricardo MD Lymphocytes (Bld) [#/Vol] 2.33 10*3/uL Normal 1.10-3.7 0 [facility] Comment on above: Performed By: #### C P, CDP, TROPI #### [address] [address] [employer] Machine Tender: Roderick Ricardo MD Lymphocytes/100 WBC (Bld) 24 % Normal 24-43 [facility] Comment on above: Performed By: #### C P, CDP, TROPI #### [address] [address] [employer] Machine Tender: Roderick Ricardo MD MCH (RBC) [Entitic mass] 31.4 pg Normal 25.2-33.5 [facility] Comment on above: Performed By: #### C P, CDP, TROPI #### [address] [address] [employer] Machine Tender: Roderick Ricardo MD MCHC (RBC) [Mass/Vol] 34.5 g/dL Normal 28.4-34.8 [facility] Comment on above: Performed By: #### C P, CDP, TROPI #### [address] [address] [employer] Machine Tender: Roderick Ricardo MD MCV (RBC) [Entitic vol] 91.0 fL Normal 82.6-102.[address] [facility] Comment on above: Performed By: #### C P, CDP, TROPI #### [address] [address] [employer] Machine Tender: Roderick Ricardo MD Monocytes (Bld) [#/Vol] 1.09 10*3/uL Normal 0.10-1.20 [facility] Comment on above: Performed By: #### C P, CDP, TROPI #### [address] [address] [employer] Machine Tender: Roderick Ricardo MD Monocytes/100 WBC (Bld) 11 % Normal 3-12 [facility] Comment on above: Performed By: #### C P, CDP, TROPI #### [address] [address] [employer] Machine Tender: Roderick Ricardo MD Neutrophil (Seg) 63 % Normal 36-65 [facility] Comment on above: Performed By: #### C P, CDP, TROPI #### [address] [address] [employer] Machine Tender: Roderick Ricardo MD NRBC Automated 0.0 per 100 WBC Normal 0.0 [facility] Comment on above: Performed By: #### C P, CDP, TROPI #### [address] [address] [employer] Machine Tender: Roderick Ricardo MD Platelet mean volume (Bld) [Entitic vol] 9.6 fL Normal 8.1-13.5 [facility] Comment on above: Performed By: #### C P, CDP, TROPI #### [address] [address] [employer] Machine Tender: Roderick Ricardo MD Platelets (Bld) [#/Vol] 385 10*3/uL Normal 138-453 [facility] Comment on above: Performed By: #### C P, CDP, TROPI #### [facility] [address] [place] [address] [employer] Machine Tender: Roderick Ricardo MD RBC (Bld) [#/Vol] 4.91 10*6/uL Normal 4.21-5.77 [facility] Comment on above: Performed By: #### C P, CDP, TROPI #### [facility] [address] [place] [address] [employer] Machine Tender: Roderick Ricardo MD WBC (Bld) [#/Vol] 9.6 10*3/uL Normal 3.5-11.3 [facility] Comment on above: Performed By: #### C P, CDP, TROPI #### [facility] [address] [place] [address] [employer] Machine Tender: Roderick Ricardo MD Comp Metabolic Profon 2023 Albumin [Mass/Vol] 4.7 g/dL Normal 3.5-5.2 [facility] Comment on above: Performed By: #### C P, CDP, TROPI #### [facility] [address] [place] [address] [employer] Machine Tender: Roderick Ricardo MD Albumin/Glob Ratio 2.0 Normal 1.0-2.5 [facility] Comment on above: Performed By: #### C P, CDP, TROPI #### [facility] [address] [place] [address] [employer] Machine Tender: Roderick Ricardo MD Alkaline Phos 83 U/L Normal 40-129 [facility] Comment on above: Performed By: #### C P, CDP, TROPI #### [facility] [place] [address] Comp[employer] Molding Machine Tender: Roderick Ricardo MD ALT [Catalytic activity/Vol] 10 U/L Normal 10-50 [facility] Comment on above: Performed By: #### C P, CDP, TROPI #### [facility] [address] [place] [address] [employer] Machine Tender: Roderick Ricardo MD Anion gap [Moles/Vol] 14 mmol/L Normal 9-16 [facility] Comment on above: Performed By: #### C P, CDP, TROPI #### [address] [address] [employer] Machine Tender: Roderick Ricardo MD AST [Catalytic activity/Vol] 16 U/L Normal 10-50 [facility] Comment on above: Performed By: #### C P, CDP, TROPI #### [address] [address] [employer] Machine Tender: Roderick Ricardo MD Bilirubin [Mass/Vol] 0.2 mg/dL Normal 0.00-1.20 [facility] Comment on above: Performed By: #### C P, CDP, TROPI #### [address] [address] [employer] Machine Tender: Roderick Ricardo MD Calcium [Mass/Vol] 9.4 mg/dL Normal 8.6-10.4 [facility] Comment on above: Performed By: #### C P, CDP, TROPI #### [address] [address] [employer] Machine Tender: Roderick Ricardo MD Chloride [Moles/Vol] 107 mmol/L Normal 98-107 [facility] Comment on above: Performed By: #### C P, CDP, TROPI #### [address] [address] [employer] Machine Tender: Roderick Ricardo MD CO2 [Moles/Vol] 21 mmol/L Normal 20-31 [facility] Comment on above: Performed By: #### C P, CDP, TROPI #### [facility] [address] [place] [address] Comp[employer] Machine Tender: Roderick Ricardo MD Creatinine [Mass/Vol] 0.8 mg/dL Normal 0.70-1.20 [facility] Comment on above: Performed By: #### C P, CDP, TROPI #### [facility] [address] [place] [address] Comp[employer] Machine Tender: Roderick Ricardo MD GFR/1.73 sq M.predicted domonique g non-blacks MDRD (S/P/Bld) [Vol rate/Area] mL/min/{1.73_m2} Normal >60 [facility] Comment on above: Result Comment: These results are not intended for use in patients <18 years of age. eGFR results are calculated without a race factor using the 2020 CKD-EPI equation. Careful clinical correlation is recommended, particularly when comparing to results calculated using previous equations. The CKD-EPI equation is less accurate in patients with extremes of muscle mass, extra-renal metabolism of creatine, excessive creatine ingestion, or following therapy that affects renal tubular secretion. Performed By: #### C P, CDP, TROPI #### [facility] [facility] [address] [place] [id number] Compression Molding Machine Tender: Roderick Ricardo MD Glucose [Mass/Vol] 100 mg/dL High 74-99 [facility] Comment on above: Performed By: #### C P, CDP, TROPI #### [facility] [address] [place] [address] [employer] Molding Machine Tender: Roderick Ricardo MD Potassium [Moles/Vol] 3.8 mmol/L Normal 3.7-5.3 [facility] Comment on above: Performed By: #### C P, CDP, TROPI #### [facility] [address] [place] [address] [employer] Molding Machine Tender: Roderick Ricardo MD Protein [Mass/Vol] 7.4 g/dL Normal 6.6-8.7 [facility] Comment on above: Performed By: #### C P, CDP, TROPI #### [facility] [place] [address] Compression Molding Machine Tender: Roderick Ricardo MD Sodium [Moles/Vol] 142 mmol/L Normal 136-145 [facility] Comment on above: Performed By: #### C P, CDP, TROPI #### [facility] [address] [place] [address] Comp[employer] Molding Machine Tender: Roderick Ricardo MD Urea nitrogen [Mass/Vol] 16 mg/dL Normal 6-20 [facility] Comment on above: Performed By: #### C P, CDP, TROPI #### [facility] [address] [place] [address] Comp[employer] Molding Machine Tender: Roderick Ricardo MD Troponinon 04-02-2024 Troponin, High Sens <6 Normal 0-22 [facility] Comment on above: Result Comment: High Sensitivity Troponin values cannot be compared with other Troponin methodologies. Performed By: #### T ROPI #### [facility] [address] [place] [id number] Comp[employer] Molding Machine Tender: Roderick Ricardo MD Troponin, High Sens <6 Normal 0-22 [facility] Comment on above: Result Comment: High Sensitivity Troponin values cannot be compared with other Troponin methodologies. Performed By: #### C P, CDP, TROPI #### [address] [address] Compression Molding Machine Tender: Roderick Ricardo MD XR CHEST (2 VW)on 04-02-2024 XR CHEST (2 VW) EXAMINATION: TWO XRAY VIEWS OF THE CHEST 04/02/2024 6:20 pm COMPARISON: None. HISTORY: ORDERING SYSTEM PROVIDED HISTORY: ACS TECHNOLOGIST PROVIDED HISTORY: ACS FINDINGS: The heart and pulmonary vascularity are within normal limits. There is a 9 mm nodule in the right upper lobe posteriorly that is likely calcified and consistent with prior granulomatous infection. There are no acute infiltrates or pleural effusions. IMPRESSION: Probable granuloma in the right upper lobe. However, there are no previous exams for comparison in noncontrast chest CT may be indicated for further characterization. Interpreted by: Florin Montes De Oca MD Signed by: Florin Montes De Oca MD 04/02/24 Final result Normal [facility] ED Note-Physicianon 01-20-20 ED Note-Physician [id number] Normal [facility] Patient Letter FTMCon 2023 Patient Letter [facility] October 28, 2023 REGIS HORTA [address] [place] [phone] : 1970 Dear Mr. Horta, I am corresponding with you by certified mail because you have a medical condition known as Elevated PSA. This requires routine follow up appointments along with blood work. My office has tried contacting you to get this scheduled with no response. Please contact my office at your earliest convenience and we will get you scheduled so your condition can be closely monitored. I cannot be responsible for your urological care if you do not follow up as recommended. Office Sincerely, Dr. Varsha Peralta [facility] [address] [place] [address] Normal [facility] CBC auto differentialon Basophils (Bld) [#/Vol] 0.1 10*3/uL [facility] Basophils/100 WBC (Bld) 1.2 % [facility] Eosinophils (Bld) [#/Vol] 0.3 10*3/uL [facility] Eosinophils/100 WBC (Bld) 2.7 % [facility] Erythrocyte distribution wid th (RBC) [Ratio] 14.0 % 11.5 - 15.0 % [facility] Hematocrit (Bld) [Volume fraction] 41.7 % 39 - 49 % [facility] Hemoglobin (Bld) [Mass/Vol] 14.6 g/dL 13.0 - 17.0 g/dL [facility] Lymphocytes (Bld) [#/Vol] 3.2 10*3/uL [facility] Lymphocytes/100 WBC (Bld) 34.3 % [facility] MCH (RBC) [Entitic mass] 30.1 pg 27 - 34 pg [facility] MCHC (RBC) [Mass/Vol] 34.9 g/dL 32 - 3 6 g/dL [facility] MCV (RBC) [Entitic vol] 86 fL 80 - 100 fL [facility] Monocytes (Bld) [#/Vol] 0.8 10*3/uL [facility] Monocytes/100 WBC (Bld) 9.2 % P [facility] Neutrophils (Bld) [#/Vol] 4.8 10*3/uL [facility] Neutrophils/100 WBC (Bld) 52.6 % [facility] Platelet mean volume (Bld) [Entitic vol] 7.5 fL 7 - 12 fL [facility] Platelets (Bld) [#/Vol] 349 10*3/uL [facility] RBC (Bld) [#/Vol] 4.83 10*6/uL [facility] WBC corrected for nucl RBC Auto (Bld) [#/Vol] 9.2 [facility] Comprehensive metabolic pane daniel 10-22-2023 Albumin [Mass/Vol] 4.2 g/dL 3.2 - 5.3 g/dL [facility] ALP [Catalytic activity/Vol] 57 U/L 39 - 130 U/L [facility] ALT No additional P-5'-P [Catalytic activity/Vol] 38 U/L 0 - 40 U/L [facility] Anion gap [Moles/Vol] 10 mmol/L 5 - 15 mmol/L [facility] AST [Catalytic activity/Vol] 23 U/L 0 - 41 U/L [facility] Bilirubin [Mass/Vol] 0.9 mg/dL 0.3 - 1 .2 mg/dL [facility] Calcium [Mass/Vol] 9.2 mg/dL 8.5 - 10. 5 mg/dL [facility] Chloride [Moles/Vol] 103 mmol/L 98 - 10 9 mmol/L [facility] CO2 [Moles/Vol] 25 mmol/L 22 - 32 mmol/L [facility] Creatinine [Mass/Vol] 0.94 mg/dL 0.70 - 1.20 mg/dL [facility] [employer] [facility] Comment on above: METHOD TRACEABLE TO IDCT STANDARD eGFR (CKD-EPI)non-race dependent - PINF [facility] Comment on above: Reported eGFR is based on the CKD-EPI 2020 equation that does not use a race coefficient. Glucose [Mass/Vol] 95 mg/dL 65 - 99 mg[facility]dL [facility] Potassium [Moles/Vol] 4.0 mmol/L 3.5 - 5.0 mmol/L [facility] [employer] [facility] Protein [Mass/Vol] 6.8 g/dL 6.0 - 8.0 g/dL [facility] Sodium [Moles/Vol] 138 mmol/L 134 - 146 mmol/L [facility] Urea nitrogen [Mass/Vol] 22 mg/dL 5 - 23 mg/dL [facility] Magnesiumon 10-22-2023 Magnesium [Mass/Vol] 2.1 mg/dL 1.8 - 2 .6 mg/dL [facility] Magnesium [Mass/Vol]on 10-22 [facility] W stress and W radionuclide IVOrdered By: Selena Sabillon on 10-22-2023 Baseline BP 108/67 mmHg [facility] Work Phone: [phone] End diastolic volume (mL) 102 mL [facility] Work Phone: [phone] End systolic volume (mL) 55 mL [facility] Work Phone: [phone] HR 81 bpm [facility] Work Phone: [phone] HR 98 bpm [facility] Work Phone: [phone] Nuc Stress EF 46 % [facility] Work Phone: [phone] Peak BP 121/65 mmHg [facility] Work Phone: [phone] Percent HR 62 % [facility] Work Phone: [phone] Recovery BP 108/69 mmHg [facility] Work Phone: [phone] Stress peak HR 104 bpm [facility] Work Phone: [phone] Target HR 168 bpm [employer] Work Phone: TID 1.02 [employer] Work Phone: [employer] Work Phone: NM Heart Perfusion W stress and W radionuclide Cora 10-22-2023 Stress ECG: A Lexiscan protocol was performed. Baseline ECG indicates sinus rhythm and non-specific T-wave changes. There were no arrhythmias during stress. The stress ECG was negative. Perfusion Defect: There is no reversible perfusion defect. Basal inferoseptal fixed defect probably due to soft tissue attenuation. Stress Function Comments: Calculated stress ejection fraction is 46%. Perfusion Comments: Based on the perfusion study data, risk of cardiovascular events is low risk. Stress Findings A Lexiscan protocol was performed. A pharmacological stress test was performed using regadenoson. The patient reported dyspnea, palpitations, flushing and chest discomfort during the stress test. Symptoms began during stress and ended during recovery. ECG Baseline ECG indicates sinus rhythm and non-specific T-wave changes. There were no arrhythmias during stress. The stress ECG was negative. Isotope Administration The isotope used for nuclear imaging was technetium sestamibi. Imaging was performed at rest after an administration on 10/22/2023 at 08:10 EST of 10.3 mCi. Imaging was performed at peak stress after an administration on 10/22/2023 at 10:02 EST of 30.6 mCi. Nuclear Study Quality A Lexiscan protocol was performed. Perfusion Comments Based on the perfusion study data, risk of cardiovascular events is low risk. Perfusion Defect There is no reversible perfusion defect. Basal inferoseptal fixed defect probably due to soft tissue attenuation. Perfusion Defect Conclusion TID ratio is 1.02. Stress Function Comments Calculated stress ejection fraction is 46%. [employer] Radiology Study observation (narrative) [facility] Cardiac [facility] study Procedure on 10-21-2023 Aortic root 3.40 cm [facility] AV mean gradient 3.00 mmHg [facility] peak gradient 6.05 mmHg [facility] [employer] AV peak cindy 123.00 cm/s [facility] valve area 1.31 cm2 [facility] Velocity Ratio 0.65 [facility] [employer] AV VTI 21.50 cm [facility] E wave deceleration time 227.00 msec [facility] Echo EF Estimated 49 % [facility] EF 49 % [facility] Energy loss index 0.91 [facility] Est. RA pressure 3 mmHg [facility] FS 26 % 28 - 44 % [facility] Inferior Vena Cava Diameter 1.17 cm [facility] Interventricular Septum Diastolic Thickness by 2D 8.608989642892902 cm [facility] IVC proximal 11.568135455050379 cm [facility] IVS 0.87 cm 0.6 - 1.1 cm [facility] LA size 3.90 cm [facility] LA volume 42.90 cm3 [facility] LA Volume Index 24.9 mL/m2 [facility] Left Ventricle Mass [id number] g [facility] LV Diastolic Volume 67.40 mL [facility] LV ESV A2C 42.10 mL [facility] LV ESV A4C 43.40 mL [facility] LV RWT 2D 33.88 [facility] LV Systolic Volume 34.10 mL [facility] LVIDd 4.90 cm 4.00 - 5.55 cm [facility] LVIDs 3.64 cm 2.37 - 3.59 cm [facility] LVOT diameter 1.60 cm [facility] LVOT peak cindy 0.81 m/s [facility] LVOT peak VTI 14.00 cm [facility] LVOT stroke volume 28.15 ml [facility] MV Peak E Cindy 74.00 cm/s [facility] MV pressure 1/2 time 67.00 ms [facility] MV TDI E' (medial) 8.90 cm/s [facility] MV valve area p 1/2 method 3.28 cm2 [facility] PW 0.83 cm 0.6 - 1.1 cm [facility] RA area 12.9 cm2 [facility] RV diastolic dimension (basal) 29.5 mm [facility] RVID d 3.0 cm [facility] TAPSE 1.48 cm [facility] TDI 11.40 cm/s [facility] Valve area - Index 0.8 [facility] ZLVIDD 0.40 [facility] ZLVIDS 1.75 [facility] Left Ventricle: Systolic function is mildly to moderately decreased with an ejection fraction of 40-45%. Global hypokinesia. Unable to assess diastolic function due to atrial fibrillation/flutte r. Right Ventricle: Right ventricular size appears normal. Systolic function is mildly reduced. Mitral Valve: The leaflets are mildly thickened. There is trace regurgitation. There is no evidence of mitral valve stenosis. Tricuspid Valve: The leaflets are mildly thickened. There is trace regurgitation. There is no evidence of tricuspid valve stenosis. Pericardium: There is no pericardial effusion. Aorta: The aortic root is normal in size. Left Ventricle Left ventricle appears normal in size. Wall thickness is normal. Systolic function is mildly to moderately decreased with an ejection fraction of 40-45%. See wall score diagram for wall motion abnormalities. Unable to assess diastolic function due to atrial fibrillation/flutte r. Lateral E' is 11.40 cm/s. Medial E' is 8.90 cm/s. Right Ventricle Right ventricular size appears normal. The right ventricular basal diameter is 29.5 mm. Systolic function is mildly reduced. Abnormal tricuspid annular plane systolic excursion. Abnormal systolic excursion velocity by TDI (<9.5cm/s). Left Atrium Left atrium volume index is normal. The left atrial volume index is 24.9 mL/m2. Right Atrium Right atrium is normal in size. The right atrial area is 12.9 cm2. IVC/SVC The right atrial pressure is estimated at 3 mmHg. IVC appears normal. Mitral Valve The leaflets are mildly thickened. There is trace regurgitation. There is no evidence of mitral valve stenosis. Tricuspid Valve The leaflets are mildly thickened. There is trace regurgitation. There is no evidence of tricuspid valve stenosis. RVSP is based on RA pressure of 3 mmHg. Aortic Valve The aortic valve is trileaflet. There is no regurgitation or stenosis. Pulmonic Valve The pulmonic valve was not well visualized. There is trace regurgitation. There is no evidence of pulmonic valve stenosis. Ascending Aorta The aortic root is normal in size. Pericardium There is no pericardial effusion. The pericardium appears normal. Study Details A complete echo was performed using complete 2D, color flow Doppler and spectral Doppler. Overall the study quality was adequate. Wall Scoring Baseline Score Index: 2.00 The left ventricular wall motion is globally hypokinetic. XCELERA [facility] Radiology Study observation (narrative) [facility] Digoxin [Mass/Vol]on 024 Interpretation and review of laboratory results Abnormal [facility] Digoxin levelon 10-21-2023 Digoxin [Mass/Vol] ng/mL Low 0.8 - 2.0 ng/mL [facility] Drug Screen, Urineon Amphetamines Screen method >1000 ng/mL Ql (U) Negative Negative^N ative [facility] Comment on above: AMPH/METH screening cut off = 1000 ng/mL Barbiturates Screen Ql (U) Negative N egative^N [facility] Comment on above: Barbiturates screeni ng cut off value = 200 ng/mL Benzodiazepines Ql (U) Negative Negat mercy^N [facility] Comment on above: Benzodiazepines scre ening cut off value = 200 ng/mL Cocaine Ql (U) Negative Negative^N [facility] Comment on above: Cocaine screening cu t off value = 300 ng/mL Methadone Screen Ql (U) Negative Nega tive^N [facility] Comment on above: Methadone screening cut off value = 300 ng/mL. Methylenedioxymethamphetamin e Screen Ql (U) Negative Negative^N [facility] Comment on above: Ecstasy screening cu t off value = 500 ng/mL This report is intended for use in clinical monitoring or management of patients. Opiates Screen Ql (U) Negative Negati ve^N [facility] Comment on above: Opiates screening cu t off value = 300 ng/mL NOTE: This test is used for the detection of codeine, hydrocodone (>1000 ng/mL), morphine and hydromorphone (>900 ng/mL) in urine. oxyCODONE Ql (U) Negative Negative^N [facility] Comment on above: Oxycodone screening cut off value = 300 ng/mL NOTE: This test is used for the detection of oxycodone and oxymorphone in urine. Phencyclidine Screen method >25 ng/mL Ql (U) Negative Negative^N [facility] Comment on above: Phencyclidine screen ing cut off value = 25 ng/mL Tetrahydrocannabinol Screen method >50 ng/mL Ql (U) Negative Negative^N egative [facility] Comment on above: Cannabinoids/THC scr eening cut off value = 50 ng/mL [facility] Thyroid profile includes TSH FT4on 10-21-2023 Free T4 [Mass/Vol] 0.68 ng/dL 0.61 - 1.60 ng/dL [facility] TSH Qn 2.27 m[IU]/L [facility] Troponin Ion 10-21-2023 Troponin I.cardiac [Mass/Vol] ng/mL 0.00 - 0.04 ng/mL [facility] Troponin I.cardiac [Mass/Vol] ng/mL 0.00 - 0.04 ng/mL [facility] Troponin I.cardiac [Mass/Vol ]on 10-21-2023 [facility] APTTon 10-20-2023 aPTT Coag (PPP) [Time] 34 s Pr [facility] Comment on above: NEW REFERENCE RANGE Basic Metabolic Panelon Anion gap [Moles/Vol] 9 mmol/L 5 - 15 mmol/L [facility] Calcium [Mass/Vol] 9.3 mg/dL 8.5 - 10. 5 mg/dL [facility] Chloride [Moles/Vol] 108 mmol/L 98 - 10 9 mmol/L [facility] CO2 [Moles/Vol] 21 mmol/L Low 22 - 32 mmol/L [facility] Creatinine [Mass/Vol] 0.94 mg/dL 0.70 - 1.20 mg/dL [facility] Comment on above: METHOD TRACEABLE TO IDMS STANDARD eGFR (CKD-EPI)non-race dependent - PINF [facility] Comment on above: Reported eGFR is based on the CKD-EPI 2020 equation that does not use a race coefficient. Glucose [Mass/Vol] 121 mg/dL High 65 - 99 mg/dL [facility] Interpretation and review of laboratory results Abnormal [facility] Potassium [Moles/Vol] 3.7 mmol/L 3.5 - 5.0 mmol/L [facility] Sodium [Moles/Vol] 138 mmol/L 134 - 146 mmol/L [facility] Urea nitrogen [Mass/Vol] 22 mg/dL 5 - 23 mg/dL [facility] CBC auto differentialon Basophils (Bld) [#/Vol] 0.1 10*3/uL [facility] Basophils/100 WBC (Bld) 1.4 % [facility] Eosinophils (Bld) [#/Vol] 0.2 10*3/uL [facility] Eosinophils/100 WBC (Bld) 2.2 % [facility] Erythrocyte distribution wid th (RBC) [Ratio] 14.4 % 11.5 - 15.0 % [facility] Hematocrit (Bld) [Volume fraction] 45.4 % 39 - 49 % [facility] Hemoglobin (Bld) [Mass/Vol] 15.5 g/dL 13.0 - 17.0 g/dL [facility] Interpretation and review of laboratory results Abnormal [facility] Lymphocytes (Bld) [#/Vol] 4.0 10*3/uL High [facility] Lymphocytes/100 WBC (Bld) 39.5 % [facility] MCH (RBC) [Entitic mass] 29.6 pg 27 - 34 pg [facility] MCHC (RBC) [Mass/Vol] 34.1 g/dL 32 - 3 6 g/dL [facility] MCV (RBC) [Entitic vol] 87 fL 80 - 100 fL [facility] Monocytes (Bld) [#/Vol] 0.9 10*3/uL [facility] Monocytes/100 WBC (Bld) 9.4 % [facility] Neutrophils (Bld) [#/Vol] 4.8 10*3/uL [facility] Neutrophils/100 WBC (Bld) 47.5 % [facility] Platelet mean volume (Bld) [Entitic vol] 7.5 fL 7 - 12 fL [facility] Platelets (Bld) [#/Vol] 351 10*3/uL [facility] RBC (Bld) [#/Vol] 5.22 10*6/uL [facility] WBC corrected for nucl RBC Auto (Bld) [#/Vol] 10.1 [facility] ECG 12 leadOrdered By: Yesy Bryatn on 10-20-2023 [facility] Magnesiumon 10-20-2023 Magnesium [Mass/Vol] 2.3 mg/dL 1.8 - 2 .6 mg/dL [facility] No Panel Informationon 10-20 [facility] Protime & INRon 10-20-2023 INR Coag (PPP) [Relative time] 1.0 {INR} [facility] PT Coag (PPP) [Time] 11.5 s [facility] Comment on above: NEW REFERENCE RANGE XR Chest Single viewon 10-20 Single view chest History: AFib. Chest pain. Comparison: None Findings: Single portable view of the chest. Cardiac silhouette is normal in size. Trachea midline. Calcified nodule right upper lobe measuring 10 mm, likely benign granuloma. No large pleural effusion. No pneumothorax. Impression: 1. No acute findings. 1 Finalized by Lopez Quintanilla MD on 10/20/2023 11:55 PM [facility] Lopez Quintanilla MD - 10/20/2023 Single view chest History: AFib. Chest pain. Comparison: None Findings: Single portable view of the chest. Cardiac silhouette is normal in size. Trachea midline. Calcified nodule right upper lobe measuring 10 mm, likely benign granuloma. No large pleural effusion. No pneumothorax. Impression: 1. No acute findings. 1 Finalized by Lopez Quintanilla MD on 10/20/2023 11:55 PM [facility] Radiology Study observation (narrative) [facility] XR Chest Single viewOrdered By: Lopez Quintanilla on 10-20-2023 [facility] Work Phone: CHEMISTRYOrdered By: Cinelan on 12-11-2022 Free PSA [Mass/Vol] 0.3 ng/mL Invalid Interpretation Code [facility] Remisol Free PSA/Total PSA [Mass fraction] 12.0 % Low >=25.0% [facility] Remisol Prostate specific Ag [Mass/Vol] 2.8 ng/mL Normal 0.1 - 3.5 ng/mL [facility] Remisol CBC AUTO DIFFon 11-19-2022 BASO # 0.1 103/ul Normal 0.0-0.1 [facility] Comment on above: Performed By: #### L ACT #### [facility] [address] [address] [address] Latia Rodriguez Basophils/100 WBC (Bld) 0.9 % Normal 0.2-2.0 [facility] Comment on above: Performed By: #### L ACT #### [facility] [address] [address] [address] Latia Rodriguez EO # 0.2 103/ul Normal 0.0-0.7 [facility] Comment on above: Performed By: #### L ACT #### [facility] [address] [place] [address] Dr. Latia Rodriguez Eosinophils/100 WBC (Bld) 1.8 % Normal 0.9-7.0 [facility] Comment on above: Performed By: #### L ACT #### [facility] [address] [address] [address] Latia Rodriguez Erythrocyte distribution wid th (RBC) [Ratio] 12.6 % Normal 11.0-15.0 [facility] Comment on above: Performed By: #### L ACT #### [facility] [address] [place] [address] Dr. Latia Rodriguez Hematocrit (Bld) [Volume fraction] 44.6 % Normal 42.0-54.0 [facility] Comment on above: Performed By: #### L ACT #### [facility] [address] [address] [address] Latia Rodriguez Hemoglobin (Bld) [Mass/Vol] 14.7 g/dL Normal 14.0-18. 0 [facility] Comment on above: Performed By: #### L ACT #### [facility] [address] [address] [address] Latia Rodriguez IG # 0.05 10e3/ul Critically high 0.00-0.03 [facility] Comment on above: Performed By: #### L ACT #### [facility] [address] [place] [address] Dr. Latia Rodriguez IG % 0.5 % Normal 0.0-0.5 [facility] [facility] Comment on above: Performed By: #### L ACT #### [facility] [address] [place] [address] Dr. Latia Rodriguez LYMPH # 3.7 103/ul Normal 1.2-3.8 [facility] Comment on above: Performed By: #### L ACT #### [facility] [address] [place] [address] Dr. Latia Rodriguez Lymphocytes/100 WBC (Bld) 35.1 % Normal 20.5-60.0 [facility] Comment on above: Performed By: #### L ACT #### [facility] [address] [place] [address] Dr. Latia Rodriguez MANUAL DIFF REQ NO Normal [facility] Comment on above: Performed By: #### L ACT #### [facility] [address] [place] [address] Dr. Latia Rodriguez MCH (RBC) [Entitic mass] 28.4 pg Normal 25.9-34.0 [facility] Comment on above: Performed By: #### L ACT #### [facility] [address] [place] [address] Dr. Latia Rodriguez MCHC (RBC) [Mass/Vol] 33.0 g/dL Normal 29.9-35.2 [facility] Comment on above: Performed By: #### L ACT #### [facility] [address] [place] [address] Dr. Latia Rodriguez MCV (RBC) [Entitic vol] 86.1 fL Normal 80.0-94.0 [facility] Comment on above: Performed By: #### L ACT #### [facility] [address] [place] [address] Dr. Latia Rodriguez MONO # 0.9 103/ul Critically high 0.3-0.8 [facility] Comment on above: Performed By: #### L ACT #### [facility] [address] [place] [address] Dr. Latia Rodriguez Monocytes/100 WBC (Bld) 8.8 % Normal 1.7-12.0 [facility] Comment on above: Performed By: #### L ACT #### [facility] [address] [place] [address] Dr. Latia Rodriguez NEUT # 5.6 103/ul Normal 1.4-6.5 [facility] Comment on above: Performed By: #### L ACT #### [facility] [address] [address] [address] Latia Rodriguez Neutrophils/100 WBC (Bld) 52.9 % Normal 43.0-75.0 [facility] Comment on above: Performed By: #### L ACT #### [facility] [address] [place] [address] Dr. Latia Rodriguez Platelet mean volume (Bld) [Entitic vol] 8.6 fL Critically low 9.5-13.5 [facility] Comment on above: Performed By: #### L ACT #### [facility] [address] [place] [address] Dr. Latia Rodriguez PLT 443 103/ul Normal 150-450 [facility] Comment on above: Performed By: #### L ACT #### [facility] [address] [place] [address] Dr. Latia Rodriguez RBC 5.18 106/ul Normal 4.70-6.10 [facility] Comment on above: Performed By: #### L ACT #### [facility] [address] [address] [address] Latia Rodriguez WBC 10.7 103/ul Normal 4.0-11.0 [facility] Comment on above: Performed By: #### L ACT #### [facility] [address] [place], [place] [id number] Dr. Latia Rodriguez PROF CHEM 8 (BAS METB)on Anion gap [Moles/Vol] 14.1 mmol/L Normal Th [facility] Comment on above: Performed By: #### L ACT #### [facility] [address] [place] [address] Dr. Latia Rodriguez Calcium [Mass/Vol] 9.4 mg/dL Normal 8.5-10.1 [facility] Comment on above: Performed By: #### L ACT #### [facility] [address] [address] [address] Latia Rodriguez Chloride [Moles/Vol] 107 mmol/L Normal 98-107 [facility] Comment on above: Performed By: #### L ACT #### [facility] [address] [address] [address] Latia Rodriguez CO2 [Moles/Vol] 26.7 mmol/L Normal 21.0-32.0 [facility] Comment on above: Performed By: #### L ACT #### [facility] [address] [place] [address] Dr. Latia Rodriguez Creatinine [Mass/Vol] 1.05 mg/dL Normal 0.70-1.30 [facility] Comment on above: Performed By: #### L ACT #### [facility] [address] [place] [address] Dr. Latia Rodriguez EGFR-AF WALLISIAN >60 Normal >=60 [facility] Comment on above: Performed By: #### L ACT #### [facility] [address] [place] [address] Dr. Latia Rodriguez EGFR-NON AF WALLISIAN >60 Normal >=60 [facility] Comment on above: Performed By: #### L ACT #### [facility] [address] [place] [address] Dr. Latia Rodriguez Glucose [Mass/Vol] 149 mg/dL Critically high 74-106 [facility] Comment on above: Performed By: #### L ACT #### [facility] [address] [address] [address] Latia Rodriguez Potassium [Moles/Vol] 3.8 mmol/L Normal 3.5-5.1 [facility] Comment on above: Performed By: #### L ACT #### [facility] [address] [place] [address] Dr. Latia Rodriguez Sodium [Moles/Vol] 144 mmol/L Normal 136-145 [facility] Comment on above: Performed By: #### L ACT #### [facility] [address] [address] [address] Latia Rodriguez Urea nitrogen [Mass/Vol] 19.0 mg/dL Critically high 7.0-18 .0 [facility] Comment on above: Performed By: #### L ACT #### [facility] [address] [address] [address] Latia Rodriguez Urea nitrogen/Creatinine [Ma ss ratio] 18.1 mg/mg Normal [facility] Comment on above: Performed By: #### L ACT #### [facility] [address] [place] [address] Dr. Latia Rodriguez BNPon 07-14-2022 Natriuretic peptide B (Bld) [Mass/Vol] 686.0 pg/mL Normal <=900.0 [facility] Comment on above: Performed By: #### C MP, BNP, CMADM #### [facility] [address] [place] [address] Dr. Latia Rodriguez CARDIAC RAVEN ADMITon 022 CK [Catalytic activity/Vol] 53 U/L Normal 39-308 [facility] Comment on above: Performed By: #### C MP, BNP, CMADM #### [facility] [address] [place] [address] Dr. Latia Rodriguez CK.MB [Mass/Vol] 1.99 ng/mL Normal <=3.60 [facility] Comment on above: Performed By: #### C MP, BNP, CMADM #### [facility] [address] [place] [address] Dr. Latia Rodriguez HSTROP 86.2 pg/mL Critically high 4.0-76.1 [facility] Comment on above: Result Comment: CUT- OFF POINTS HAVE BEEN ESTABLISHED BASED ON THE FOURTH UNIVERSAL DEFINITIONS OF MYOCARDIAL INFARCTION. THE UPPER REFERENCE LIMIT (URL) OF TROPONIN, DEFINED THE 99TH PERCENTILE OF cTnI DISTRIBUTION IN A REFERENCE POPULATION, HAS BEEN CONFIRMED THE DECISION THRESHOLD FOR [place] DIAGNOSIS. Performed By: #### C MP, BNP, CMADM #### [facility] [address] [place], [place] [id number] Dr. Latia Rodriguez ZIYAD 43 ng/mL Normal 16-96 [facility] Comment on above: Performed By: #### C MP, BNP, CMADM #### [facility] [address] [place] [address] Dr. Latia Rodriguez CBC AUTO DIFFon 07-14-2022 BASO # 0.0 103/ul Normal 0.0-0.1 [facility] Comment on above: Performed By: #### L ACT #### [facility] [address] [place] [address] Dr. Latia Rodriguez Basophils/100 WBC (Bld) 0.1 % Critically low 0.2-2.0 [facility] Comment on above: Performed By: #### L ACT #### [facility] [address] [place] [address] Dr. Latia Rodriguez EO # 0.0 103/ul Normal 0.0-0.7 [facility] Comment on above: Performed By: #### L ACT #### [facility] [address] [place] [address] Dr. Latia Rodriguez Eosinophils/100 WBC (Bld) 0.0 % Critically low 0.9-7. 0 [facility] Comment on above: Performed By: #### L ACT #### [facility] [address] [place] [address] Dr. Latia Rodriguez Erythrocyte distribution wid th (RBC) [Ratio] 12.7 % Normal 11.0-15.0 [facility] Comment on above: Performed By: #### L ACT #### [facility] [address] [place] [address] Dr. Latia Rodriguez Hematocrit (Bld) [Volume fraction] 38.6 % Critically low 42.0-54.0 [facility] Comment on above: Performed By: #### L ACT #### [facility] [address] [place] [address] Dr. Latia Rodriguez Hemoglobin (Bld) [Mass/Vol] 12.6 g/dL Critically low 14.0 -18.0 [facility] Comment on above: Performed By: #### L ACT #### [facility] [address] [address] [address] Latia Rodriguez IG # 0.13 10e3/ul Critically high 0.00-0.03 [facility] Comment on above: Performed By: #### L ACT #### [facility] [address] [place] [address] Dr. Latia Rodriguez IG % 0.6 % Critically high 0.0-0.5 [facility] Comment on above: Performed By: #### L ACT #### [facility] [address] [place] [address] Dr. Latia Rodriguez LYMPH # 1.2 103/ul Normal 1.2-3.8 [facility] Comment on above: Performed By: #### L ACT #### [facility] [address] [place] [address] Dr. Latia Rodriguez Lymphocytes/100 WBC (Bld) 5.7 % Critically low 20.5-6 0.0 [facility] Comment on above: Performed By: #### L ACT #### [facility] [address] [place] [address] Dr. Latia Rodriguez MANUAL DIFF REQ NO Normal [facility] Comment on above: Performed By: #### L ACT #### [facility] [address] [place] [address] Dr. Latia Rodriguez MCH (RBC) [Entitic mass] 29.2 pg Normal 25.9-34.0 [facility] Comment on above: Performed By: #### L ACT #### [facility] [address] [place] [address] Dr. Latia Rodriguez MCHC (RBC) [Mass/Vol] 32.6 g/dL Normal 29.9-35.2 [facility] Comment on above: Performed By: #### L ACT #### [facility] [address] [place] [address] Dr. Latia Rodriguez MCV (RBC) [Entitic vol] 89.4 fL Normal 80.0-94.0 [facility] Comment on above: Performed By: #### L ACT #### [facility] [address] [place], [place] [id number] Dr. Latia Rodriguez MONO # 0.8 103/ul Normal 0.3-0.8 [facility] Comment on above: Performed By: #### L ACT #### [facility] [address] [place] [address] Dr. Latia Rodriguez Monocytes/100 WBC (Bld) 4.0 % Normal 1.7-12.0 [facility] Comment on above: Performed By: #### L ACT #### [facility] [address] [place] [address] Dr. Latia Rodriguez NEUT # 18.4 103/ul Critically high 1.4-6.5 [facility] Comment on above: Performed By: #### L ACT #### [facility] [address] [place] [address] Dr. Latia Rodriguez Neutrophils/100 WBC (Bld) 89.6 % Critically high 43.0- 75.0 [facility] Comment on above: Performed By: #### L ACT #### [facility] [address] [place] [address] Dr. Latia Rodriguez Platelet mean volume (Bld) [Entitic vol] 9.2 fL Critically low 9.5-13.5 [facility] Comment on above: Performed By: #### L ACT #### [facility] [address] [place] [address] Dr. Latia Rodriguez PLT 461 103/ul Critically high 150-450 [facility] Comment on above: Performed By: #### L ACT #### [facility] [address] [place] [address] Dr. Latia Rodriguez RBC 4.32 106/ul Critically low 4.70-6.10 [facility] Comment on above: Performed By: #### L ACT #### [facility] [address] [place] [address] Dr. Latia Rodriguez WBC 20.6 103/ul Critically high 4.0-11.0 [facility] Comment on above: Performed By: #### L ACT #### [facility] [address] [place] [address] Dr. Latia Rodriguez PROF 14(COMP METB)on 022 Albumin [Mass/Vol] 2.9 g/dL Critically low 3.4-5.0 [facility] Comment on above: Performed By: #### C MP, BNP, CMADM #### [facility] [address] [address] [address] Latia Rodriguez Albumin/Globulin [Mass ratio] 1.0 {ratio} Normal [facility] Comment on above: Performed By: #### C MP, BNP, CMADM #### [facility] [address] [address] [address] Latia Rodriguez ALP [Catalytic activity/Vol] 59 U/L Normal 46-116 [facility] Comment on above: Performed By: #### C MP, BNP, CMADM #### [facility] [address] [address] [address] Latia Rodriguez ALT [Catalytic activity/Vol] 30 U/L Normal 16-63 [facility] Comment on above: Performed By: #### C MP, BNP, CMADM #### [facility] [address] [address] [address] Latia Rodriguez Anion gap [Moles/Vol] 14.9 mmol/L Normal [facility] Comment on above: Performed By: #### C MP, BNP, CMADM #### [facility] [address] [address] [address] Latia Rodriguez AST [Catalytic activity/Vol] 8 U/L Critically low 15- 37 [facility] Comment on above: Performed By: #### C MP, BNP, CMADM #### [facility] [address] [address] [address] Latia Rodriguez Bilirubin [Mass/Vol] 0.2 mg/dL Normal 0.2-1.0 [facility] Comment on above: Performed By: #### C MP, BNP, CMADM #### [facility] [address] [address] [address] Latia Rodriguez Calcium [Mass/Vol] 8.5 mg/dL Normal 8.5-10.1 [facility] Comment on above: Performed By: #### C MP, BNP, CMADM #### [facility] [address] [address] [address] Latia Rodriguez Chloride [Moles/Vol] 105 mmol/L Normal 98-107 [facility] Comment on above: Performed By: #### C MP, BNP, CMADM #### [facility] [address] [address] [address] Latia Rodriguez CO2 [Moles/Vol] 23.5 mmol/L Normal 21.0-32.0 [facility] Comment on above: Performed By: #### C MP, BNP, CMADM #### [facility] [address] [address] [address] Latia Rodriguez Creatinine [Mass/Vol] 1.16 mg/dL Normal 0.70-1.30 [facility] Comment on above: Performed By: #### C MP, BNP, CMADM #### [facility] [address] [address] [address] Latia Rodriguez EGFR-AF WALLISIAN >60 Normal >=60 [facility] Comment on above: Performed By: #### C MP, BNP, CMADM #### [facility] [address] [address] [address] Latia Rodriguez EGFR-NON AF WALLISIAN >60 Normal >=60 [facility] Comment on above: Performed By: #### C MP, BNP, CMADM #### [facility] [address] [address] [address] Latia Rodriguez Globulin (S) [Mass/Vol] 2.9 g/dL Normal [facility] Comment on above: Performed By: #### C MP, BNP, CMADM #### [facility] [address] [address] [address] Latia Rodriguez Glucose [Mass/Vol] 226 mg/dL Critically high 74-106 [facility] Comment on above: Performed By: #### C MP, BNP, CMADM #### [facility] [address] [address] [address] Latia Rodriguez Potassium [Moles/Vol] 3.4 mmol/L Critically low 3.5-5.1 [facility] Comment on above: Performed By: #### C MP, BNP, CMADM #### [facility] [address] [place] [address] Dr. Latia Rodriguez Protein [Mass/Vol] 5.8 g/dL Critically low 6.4-8.2 [facility] Comment on above: Performed By: #### C MP, BNP, CMADM #### [facility] [address] [place] [address] Dr. Latia Rodriguez Sodium [Moles/Vol] 140 mmol/L Normal 136-145 [facility] Comment on above: Performed By: #### C MP, BNP, CMADM #### [facility] [address] [place] [address] Dr. Latia Rodriguez Urea nitrogen [Mass/Vol] 15.0 mg/dL Normal 7.0-18.0 [facility] Comment on above: Performed By: #### C MP, BNP, CMADM #### [facility] [address] [place] [address] Dr. Latia Rodriguez Urea nitrogen/Creatinine [Ma ss ratio] 12.9 mg/mg Normal [facility] Comment on above: Performed By: #### C MP, BNP, CMADM #### [facility] [address] [place] [address] Dr. Latia Rodriguez BNPon 07-13-2022 Natriuretic peptide B (Bld) [Mass/Vol] 501.0 pg/mL Normal <=900.0 [facility] Comment on above: Performed By: #### P OCGLUC #### [facility] [address] [place] [address] Dr. Latia Rodriguez CARDIAC RAVEN 3-6on 2 CK [Catalytic activity/Vol] 111 U/L Normal 39-308 [facility] Comment on above: Performed By: #### C MREP #### [facility] [address] [place] [address] Dr. Latia Rodriguez CK.MB [Mass/Vol] 2.71 ng/mL Normal <=3.60 [facility] Comment on above: Performed By: #### C MREP #### [facility] [address] [address] [address] Latia Rodriguez HSTROP 348.1 pg/mL Critically high 4.0-76.1 [facility] Comment on above: Result Comment: CUT- OFF POINTS HAVE BEEN ESTABLISHED BASED ON THE FOURTH UNIVERSAL DEFINITIONS OF MYOCARDIAL INFARCTION. THE UPPER REFERENCE LIMIT (URL) OF TROPONIN, DEFINED THE 99TH PERCENTILE OF cTnI DISTRIBUTION IN A REFERENCE POPULATION, HAS BEEN CONFIRMED THE DECISION THRESHOLD FOR [place] DIAGNOSIS. Performed By: #### C MREP #### [facility] [address] [place] [address] Dr. Latia Rodriguez CARDIAC RAVEN ADMITon 022 CK [Catalytic activity/Vol] 91 U/L Normal 39-308 [facility] Comment on above: Performed By: #### P OCGLUC #### [facility] [address] [place] [address] Dr. Latia Rodriguez CK.MB [Mass/Vol] 3.11 ng/mL Normal <=3.60 [facility] Comment on above: Performed By: #### P OCGLUC #### [facility] [address] [place] [address] Dr. Latia Rodriguez HSTROP 326.9 pg/mL Critically high 4.0-76.1 [facility] Comment on above: Result Comment: CUT- OFF POINTS HAVE BEEN ESTABLISHED BASED ON THE FOURTH UNIVERSAL DEFINITIONS OF MYOCARDIAL INFARCTION. THE UPPER REFERENCE LIMIT (URL) OF TROPONIN, DEFINED THE 99TH PERCENTILE OF cTnI DISTRIBUTION IN A REFERENCE POPULATION, HAS BEEN CONFIRMED THE DECISION THRESHOLD FOR [place] DIAGNOSIS. Performed By: #### P OCGLUC #### [facility] [address] [place] [address] Dr. Latia Rodriguez ZIYAD 41 ng/mL Normal 16-96 [facility] Comment on above: Performed By: #### P OCGLUC #### [facility] [address] [place] [address] Dr. Latia Rodriugez CBC AUTO DIFFon 07-13-2022 BASO # 0.0 103/ul Normal 0.0-0.1 [facility] Comment on above: Performed By: #### C BC #### [facility] [address] [address] [address] Latia Rodriguez Basophils/100 WBC (Bld) 0.2 % Normal 0.2-2.0 [facility] Comment on above: Performed By: #### C BC #### [facility] [address] [address] [address] Latia Rodriguez EO # 0.0 103/ul Normal 0.0-0.7 [facility] Comment on above: Performed By: #### C BC #### [facility] [address] [place] [address] Dr. Latia Rodriguez Eosinophils/100 WBC (Bld) 0.1 % Critically low 0.9-7. 0 [facility] Comment on above: Performed By: #### C BC #### [facility] [address] [place] [address] Dr. Latia Rodriguez Erythrocyte distribution wid th (RBC) [Ratio] 12.8 % Normal 11.0-15.0 [facility] Comment on above: Performed By: #### C BC #### [facility] [address] [place] [address] Dr. Latia Rodriguez Hematocrit (Bld) [Volume fraction] 45.4 % Normal 42.0-54.0 [facility] Comment on above: Performed By: #### C BC #### [facility] [address] [place] [address] Dr. Latia Rodriguez Hemoglobin (Bld) [Mass/Vol] 14.8 g/dL Normal 14.0-18. 0 [facility] Comment on above: Performed By: #### C BC #### [facility] [address] [place] [address] Dr. Latia Rodriguez IG # 0.05 10e3/ul Critically high 0.00-0.03 [facility] Comment on above: Performed By: #### C BC #### [facility] [address] [place] [address] Dr. Latia Rodriguez IG % 0.6 % Critically high 0.0-0.5 [facility] Comment on above: Performed By: #### C BC #### [facility] [address] [address] [address] Latia Rodriguez LYMPH # 0.8 103/ul Critically low 1.2-3.8 [facility] Comment on above: Performed By: #### C BC #### [facility] [address] [place] [address] Dr. Latia Rodriguez Lymphocytes/100 WBC (Bld) 8.4 % Critically low 20.5-6 0.0 [facility] Comment on above: Performed By: #### C BC #### [facility] [address] [place] [address] Dr. Latia Rodriguez MANUAL DIFF REQ NO Normal [facility] Comment on above: Performed By: #### C BC #### [facility] [address] [place] [address] Dr. Latia Rodriguez MCH (RBC) [Entitic mass] 29.4 pg Normal 25.9-34.0 [facility] Comment on above: Performed By: #### C BC #### [facility] [address] [place] [address] Dr. Latia Rodriguez MCHC (RBC) [Mass/Vol] 32.6 g/dL Normal 29.9-35.2 [facility] [facility] Comment on above: Performed By: #### C BC #### [facility] [address] [place] [address] Dr. Latia Rodriguez MCV (RBC) [Entitic vol] 90.3 fL Normal 80.0-94.0 [facility] Comment on above: Performed By: #### C BC #### [facility] [address] [place] [address] Dr. Latia Rodriguez MONO # 0.1 103/ul Critically low 0.3-0.8 [facility] Comment on above: Performed By: #### C BC #### [facility] [address] [place] [address] Dr. Latia Rodriguez Monocytes/100 WBC (Bld) 1.0 % Critically low 1.7-12.0 [facility] Comment on above: Performed By: #### C BC #### [facility] [address] [address] [address] Latia Rodriguez NEUT # 8.0 103/ul Critically high 1.4-6.5 [facility] Comment on above: Performed By: #### C BC #### [facility] [address] [place] [address] Dr. Latia Rodriguez Neutrophils/100 WBC (Bld) 89.7 % Critically high 43.0- 75.0 [facility] Comment on above: Performed By: #### C BC #### [facility] [address] [place] [address] Dr. Latia Rodriguez Platelet mean volume (Bld) [Entitic vol] 9.3 fL Critically low 9.5-13.5 [facility] Comment on above: Performed By: #### C BC #### [facility] [address] [place] [address] Dr. Latia Rodriguez PLT 406 103/ul Normal 150-450 [facility] Comment on above: Performed By: #### C BC #### [facility] [address] [place] [address] Dr. Latia Rodriguez RBC 5.03 106/ul Normal 4.70-6.10 [facility] Comment on above: Performed By: #### C BC #### [facility] [address] [place] [address] Dr. Latia Rodriguez WBC 9.0 103/ul Normal 4.0-11.0 [facility] Comment on above: Performed By: #### C BC #### [facility] [address] [place] [address] Dr. Latia Rodriguez ECHOCARDIO M/2D COMPLETEon 1 ECHOCARDIO M/2D COMPLETE Patient: REGIS GUZMAN Exam Date: 07/13/2022 : 1970 Gender:M Ordering : DR MELVIN PEREZ . Admission #: [id number] Family : Order #: [id number] CLICK HERE TO VIEW EXAM ECHOCARDIOGRAM REPORT PROCEDURE: CARDIO PULMONARY ECHOCARDIO M/2D COMP INDICATIONS: Elevated TROP, chest pain, drug overdose COMPARISON: None. DESCRIPTION: COMPLETE ECHOCARDIOGRAM Real-time transthoracic echocardiography with 2D, M-mode, spectral and color flow Doppler performed. QUALITY: Technical quality was good. 62 150# BP 87/52 LEFT VENTRICLE: Normal chamber size. Normal left ventricular wall thickness. Left ventricular systolic function is mildly reduced with global hypokinesis. LV EF: Mildly reduced left ventricular ejection fraction, (40-45%). DIASTOLIC: ATRIAL SEPTUM: LEFT ATRIUM: Normal chamber size. RIGHT ATRIUM: Normal chamber size. RIGHT VENTRICLE: Normal chamber size. Normal right ventricular systolic function. TRICUSPID VALVE: Normal mobility and thickness. No stenosis with no regurgitation. MITRAL VALVE: Normal mobility and thickness. No evidence of mitral valve stenosis. There is no mitral annular calcification. No mitral regurgitation. AORTIC VALVE: Normal trileaflet appearance. No visible sclerosis. Normal leaflet mobility. No evidence of aortic valve stenosis. No aortic regurgitation. AORTIC ROOT: Normal diameter and appearance. PULMONIC VALVE: Not well visualized. No stenosis. No regurgitation. PERICARDIUM: No evidence of pericardial effusion. IVC: IVC is normal in size with no collapse. PLEURA: CONCLUSION: 1. Left ventricular systolic function is mildly reduced with global hypokinesis. LVEF is 40 to 45%. 2. Normal right ventricular size and systolic function. 3. No significant valvular dysfunction. 4. No pericardial effusion. Adult Echocardiography Procedure Report Left Ventricle LVEDD (3.7 - 5.6 cm): 4.72 cm LVESD (2.2 - 4.0 cm): 3.83 cm LVIVS thickness (0.6 - 1.2 cm): 0.84 cm LVPW thickness (0.5 - 1.0 cm): 0.93 cm e': 0.11 m/s E - e': 7.62 LVOT Max Gradient: 3.76 mm[Hg], 3.76 mm[Hg], 3.76 mm[Hg], 3.76 mm[Hg] Peak Velocity (LVOT): 0.97 m/s, 0.97 m/s, 0.97 m/s, 0.97 m/s Mean Velocity (LVOT): 0.70 m/s, 0.68 m/s, 0.70 m/s, 0.68 m/s LVOT Diameter 2.10 cm Left Ventricular Ejection Fraction: 40-45 % Left Atrium LA Volume Index (2D A2C): 43.60 ml, 43.60 ml Left Atrium Systolic Dimension: 3.05 cm Mitral Valve MV E to A Ratio: 1.43 Mitral Valve A-Wave Peak Velocity: 0.57 m/s Mitral Valve E-Wave Peak Velocity: 0.82 m/s Right Ventricle Aorta AO Root Diam: 3.22 cm Aortic Valve AoV Area (Peak Cindy): 2.83 cm2, 2.83 cm2 AoV Area (VTI): 2.74 cm2, 2.78 cm2 Peak Velocity(Antegrade Flow): 1.19 m/s Peak Gradient(Antegrade Flow): 5.65 mm[Hg] Mean Velocity(Antegrade Flow): 0.89 m/s Mean Gradient(Antegrade Flow): 3.47 mm[Hg] Velocity Time Integral: 23.28 cm Tricuspid Valve Peak Velocity: 0.46 m/s Pulmonic Valve Peak Velocity: 1.06 m/s, 1.07 m/s Peak Gradient: 4.49 mm[Hg], 4.55 mm[Hg] Right Atrium Right Atrium Systolic Pressure: 35.09 ml, 35.09 ml Dictated by: Killian Blanchard M.D. on 07/18/2022 at 11:33 Approved by: Killian Blanchard M.D. on 07/18/2022 at 11:36 Normal [facility] PROF 14(COMP METB)on 022 Albumin [Mass/Vol] 3.1 g/dL Critically low 3.4-5.0 Th e [facility] Comment on above: Performed By: #### P OCGLUC #### [facility] [address] [place] [address] Dr. Latia Rodriguez Albumin/Globulin [Mass ratio] 0.9 {ratio} Normal [facility] Comment on above: Performed By: #### P OCGLUC #### [facility] [address] [address] [address] Latia Rodriguez ALP [Catalytic activity/Vol] 80 U/L Normal 46-116 [facility] Comment on above: Performed By: #### P OCGLUC #### [facility] [address] [address] [address] Latia Rodriguez ALT [Catalytic activity/Vol] 34 U/L Normal 16-63 [facility] Comment on above: Performed By: #### P OCGLUC #### [facility] [address] [address] [address] Latia Rodriguez Anion gap [Moles/Vol] 13.0 mmol/L Normal [facility] Comment on above: Performed By: #### P OCGLUC #### [facility] [address] [address] [address] Latia Rodriguez AST [Catalytic activity/Vol] 16 U/L Normal 15-37 [facility] Comment on above: Performed By: #### P OCGLUC #### [facility] [address] [address] [address] Latia Rodriguez Bilirubin [Mass/Vol] 0.5 mg/dL Normal 0.2-1.0 [facility] Comment on above: Performed By: #### P OCGLUC #### [facility] [address] [address] [address] Latia Rodriguez Calcium [Mass/Vol] 7.8 mg/dL Critically low 8.5-10.1 [facility] Comment on above: Performed By: #### P OCGLUC #### [facility] [address] [address] [address] Latia Rodriguez Chloride [Moles/Vol] 107 mmol/L Normal 98-107 [facility] Comment on above: Performed By: #### P OCGLUC #### [facility] [address] [address] [address] Latia Rodriguez CO2 [Moles/Vol] 23.8 mmol/L Normal 21.0-32.0 [facility] Comment on above: Performed By: #### P OCGLUC #### [facility] [address] [address] [address] Latia Rodriguez Creatinine [Mass/Vol] 0.97 mg/dL Normal 0.70-1.30 [facility] Comment on above: Performed By: #### P OCGLUC #### [facility] [address] [address] [address] Latia Rodriguez EGFR-AF WALLISIAN >60 Normal >=60 [facility] Comment on above: Performed By: #### P OCGLUC #### [facility] [address] [address] [address] Latia Rodriguez EGFR-NON AF WALLISIAN >60 Normal >=60 [facility] Comment on above: Performed By: #### P OCGLUC #### [facility] [address] [address] [address] Latia Rodriguez Globulin (S) [Mass/Vol] 3.3 g/dL Normal [facility] Comment on above: Performed By: #### P OCGLUC #### [facility] [address] [address] [address] Latia Rodriguez Glucose [Mass/Vol] 161 mg/dL Critically high 74-106 [facility] Comment on above: Performed By: #### P OCGLUC #### [facility] [address] [address] [address] Latia Rodriguez Potassium [Moles/Vol] 3.8 mmol/L Normal 3.5-5.1 [facility] Comment on above: Performed By: #### P OCGLUC #### [facility] [address] [address] [address] Latia Rodriguez Protein [Mass/Vol] 6.4 g/dL Normal 6.4-8.2 [facility] Comment on above: Performed By: #### P OCGLUC #### [facility] [address] [address] [address] Latia Rodriguez Sodium [Moles/Vol] 140 mmol/L Normal 136-145 [facility] Comment on above: Performed By: #### P OCGLUC #### [facility] [address] [address] [address] Latia Rodriguez Urea nitrogen [Mass/Vol] 13.0 mg/dL Normal 7.0-18.0 [facility] Comment on above: Performed By: #### P OCGLUC #### [facility] [address] [address] [address] Latia Rodriguez Urea nitrogen/Creatinine [Ma ss ratio] 13.4 mg/mg Normal [facility] Comment on above: Performed By: #### P OCGLUC #### [facility] [address] [place] [address] Dr. Latia Rodriguez XR CHEST 2 Von 07-13-2022 XR CHEST 2 V EXAM: XR CHEST 2 V HISTORY: COUGH COMPARISON: 07/12/2022 TECHNIQUE: PA and lateral FINDINGS: LUNGS: Focal nodule in the right midlung, stable. Minimal left basilar infiltrate VASCULATURE: No increased pulmonary vasculature. PLEURA: No pneumothorax, effusion, or pleural thickening. CARDIAC: No cardiomegaly or cardiac silhouette abnormality. MEDIASTINUM: No visible mass or adenopathy. BONES: No fracture or visible bone lesion. OTHER: Negative. IMPRESSION: Improved aeration of the lungs with minimal left basilar infiltrate Electronically authenticated by: GERARDO ABARCA Date: 2022-07-13 14:16 Normal [facility] ACETAMINOPHENon 07-12-2022 Acetaminophen [Mass/Vol] ug/mL Critically low 10.0-30 .0 [facility] Comment on above: Performed By: #### P OCGLUC #### [facility] [address] [place] [address] Dr. Latia Rodriguez ACETONE SERUMon 07-12-2022 ACETONE Negative Normal NEGATIVE [facility] Comment on above: Performed By: #### D IG #### [facility] [address] [place] [address] Dr. Latia Rodriguez BNPon 07-12-2022 Natriuretic peptide B (Bld) [Mass/Vol] 42.0 pg/mL Normal <=900.0 [facility] Comment on above: Performed By: #### D IG #### [facility] [address] [place] [address] Dr. Latia Rodriguez CARDIAC RAVEN 3-6on 2 CK [Catalytic activity/Vol] 111 U/L Normal 39-308 [facility] Comment on above: Performed By: #### L ACT #### [facility] [address] [place] [address] Dr. Latia Rodriguez CK.MB [Mass/Vol] 2.64 ng/mL Normal <=3.60 [facility] Comment on above: Performed By: #### L ACT #### [facility] [address] [place] [address] Dr. Latia Rodriguez HSTROP 159.4 pg/mL Critically high 4.0-76.1 [facility] Comment on above: Result Comment: CUT- OFF POINTS HAVE BEEN ESTABLISHED BASED ON THE FOURTH UNIVERSAL DEFINITIONS OF MYOCARDIAL INFARCTION. THE UPPER REFERENCE LIMIT (URL) OF TROPONIN, DEFINED THE 99TH PERCENTILE OF cTnI DISTRIBUTION IN A REFERENCE POPULATION, HAS BEEN CONFIRMED THE DECISION THRESHOLD FOR [place] DIAGNOSIS. Performed By: #### L ACT #### [facility] [address] [place] [address] Dr. Latia Rodriguez CBC AUTO DIFFon 07-12-2022 BASO # 0.1 103/ul Normal 0.0-0.1 [facility] Comment on above: Performed By: #### L ACT #### [facility] [address] [place] [address] Dr. Latia Rodriguez Basophils/100 WBC (Bld) 0.5 % Normal 0.2-2.0 [facility] Comment on above: Performed By: #### L ACT #### [facility] [address] [place] [address] Dr. Latia Rodriguez EO # 0.2 103/ul Normal 0.0-0.7 [facility] Comment on above: Performed By: #### L ACT #### [facility] [address] [place] [address] Dr. Latia Rodriguez Eosinophils/100 WBC (Bld) 1.4 % Normal 0.9-7.0 [facility] Comment on above: Performed By: #### L ACT #### [facility] [address] [place] [address] Dr. Latia Rodriguez Erythrocyte distribution wid th (RBC) [Ratio] 12.9 % Normal 11.0-15.0 [facility] Comment on above: Performed By: #### L ACT #### [facility] [address] [place] [address] Dr. Latia Rodriguez Hematocrit (Bld) [Volume fraction] 42.5 % Normal 42.0-54.0 [facility] Comment on above: Performed By: #### L ACT #### [facility] [address] [place] [address] Dr. Latia Rodriguez Hemoglobin (Bld) [Mass/Vol] 14.0 g/dL Normal 14.0-18. 0 [facility] Comment on above: Performed By: #### L ACT #### [facility] [address] [place] [address] Dr. Latia Rodriguez IG # 0.05 10e3/ul Critically high 0.00-0.03 [facility] Comment on above: Performed By: #### L ACT #### [facility] [address] [place] [address] Dr. Latia Rodriguez IG % 0.5 % Normal 0.0-0.5 [facility] Comment on above: Performed By: #### L ACT #### [facility] [address] [place] [address] Dr. Latia Rodriguez LYMPH # 1.8 103/ul Normal 1.2-3.8 [facility] Comment on above: Performed By: #### L ACT #### [facility] [address] [place] [address] Dr. Latia Rodriguez Lymphocytes/100 WBC (Bld) 16.2 % Critically low 20.5-6 0.0 [facility] Comment on above: Performed By: #### L ACT #### [facility] [address] [place] [address] Dr. Latia Rodriguez MANUAL DIFF REQ NO Normal [facility] Comment on above: Performed By: #### L ACT #### [facility] [address] [place] [address] Dr. Latia Rodriguez MCH (RBC) [Entitic mass] 29.4 pg Normal 25.9-34.0 [facility] Comment on above: Performed By: #### L ACT #### [facility] [address] [place] [address] Dr. Latia Rodriguez MCHC (RBC) [Mass/Vol] 32.9 g/dL Normal 29.9-35.2 [facility] Comment on above: Performed By: #### L ACT #### [facility] [address] [place] [address] Dr. Latia Rodriguez MCV (RBC) [Entitic vol] 89.3 fL Normal 80.0-94.0 [facility] Comment on above: Performed By: #### L ACT #### [facility] [address] [place] [address] Dr. Latia Rodriguez MONO # 0.7 103/ul Normal 0.3-0.8 [facility] Comment on above: Performed By: #### L ACT #### [facility] [address] [place] [address] Dr. Latia Rodriguez Monocytes/100 WBC (Bld) 6.7 % Normal 1.7-12.0 [facility] Comment on above: Performed By: #### L ACT #### [facility] [address] [place] [address] Dr. Latia Rodriguez NEUT # 8.3 103/ul Critically high 1.4-6.5 [facility] Comment on above: Performed By: #### L ACT #### [facility] [address] [place] [address] Dr. Latia Rodriguez Neutrophils/100 WBC (Bld) 74.7 % Normal 43.0-75.0 [facility] Comment on above: Performed By: #### L ACT #### [facility] [address] [place] [address] Dr. Latia Rodriguez Platelet mean volume (Bld) [Entitic vol] 8.5 fL Critically low 9.5-13.5 [facility] Comment on above: Performed By: #### L ACT #### [facility] [address] [place] [address] Dr. Latia Rodriguez PLT 394 103/ul Normal 150-450 [facility] Comment on above: Performed By: #### L ACT #### [facility] [address] [place] [address] Dr. Latia Rodriguez RBC 4.76 106/ul Normal 4.70-6.10 [facility] Comment on above: Performed By: #### L ACT #### [facility] [address] [place] [address] Dr. Latia Rodriguez WBC 11.1 103/ul Critically high 4.0-11.0 [facility] Comment on above: Performed By: #### L ACT #### [facility] [address] [address] [address] CSPINE WO CONon CT CSPINE WO CON EXAMINATION: CT CSPINE WO CON HISTORY: Unspecified fall COMPARISON: No relevant comparison available. TECHNIQUE: Axial, Coronal, and Sagittal images were created without IV contrast. Dose reduction techniques were achieved by using automated exposure control and/or adjustment of mA and/or kV according to patient size and/or use of iterative reconstruction technique. FINDINGS: VERTEBRAL BODIES: No fracture or spondylolisthesis. FACET JOINTS: No disruption or abnormal widening. CERVICAL DISCS: Mild/moderate narrowing C5-C6, C6-C7, C7-T1 causing mild/moderate central canal narrowing and moderate right foramen narrowing. CENTRAL CANAL: No evidence of hemorrhage. PARASPINAL AREA: No visible mass. IMPRESSION: 1. No appreciable acute abnormality. 2. Moderate degenerative changes. Electronically authenticated by: KODY MACIEL Date: 2022-07-12 16:38 Normal [facility] CT HEAD WO CONon 07-12-2022 CT HEAD WO CON EXAMINATION: CT HEAD WO CON HISTORY: Unspecified fall COMPARISON: None. TECHNIQUE: CT examination of the head without IV contrast. Dose reduction techniques were achieved by using automated exposure control and/or adjustment of mA and/or kV according to patient size and/or use of iterative reconstruction technique. FINDINGS: No acute intracranial hemorrhage. No acute loss of craft/white differentiation. A small lacunar infarction or prominent perivascular space is present in the right basal ganglia. The ventricles and sulci are normal in appearance. The osseous structures are unremarkable. No soft tissue abnormality identified. The paranasal sinuses and mastoid air cells are clear. IMPRESSION: 1. No acute intracranial abnormality. 2. Chronic lacunar infarct versus prominent perivascular space in the right basal ganglia. Electronically authenticated by: ALYSSIA ORONA Date: 2022-07-12 16:20 Normal [facility] CULTURE BLOODon 07-12-2022 Microscopic examination of blood, culture Culture Observations: NO GROWTH AT 5 DAYS. Normal [facility] Comment on above: Performed By: #### C MREP #### [facility] [address] [address] [address] Latia Rodriguez Microscopic examination of blood, culture Culture Observations: NO GROWTH AT 5 DAYS. Normal [facility] Comment on above: Performed By: #### C MREP #### [facility] [address] [place] [address] Dr. Latia Rodriguze Covid-19 PCR ([facility])on 06-17 SARS-CoV-2 (COVID-19) RNA KATHARINA+probe Ql (Unsp spec) Not detected Normal NOT DETECTED [facility] Comment on above: Result Comment: When diagnostic testing is negative, the possibility of a false negative should be considered in the context of a patient's recent exposures and the presence of clinical signs and symptoms consistent with SARS-CoV-2. This test is not yet approved or cleared by the [place] FDA. When there are no FDA-approved or cleared tests available, and other criteria are met, FDA can make tests available under an emergency access mechanism called an Emergency Use Authorization (EUA). The EUA for this test is supported by the [employer] of Health and Human Service's declaration that circumstances exist to justify the emergency use of in vitro diagnostics for the detection and/or diagnosis of the virus that causes COVID-19. This EUA will remain in effect for the duration of the COVID-19 declaration justifying emergency of IVDs, unless it is terminated or revoked by the FDA (after which the test may no longer be used). Performed By: #### L ACT #### [facility] [address] [place] [address] Dr. Latia Rodriguez DIGOXINon 07-12-2022 DIG <0.2 Critically low 0.9-2.0 [facility] Comment on above: Performed By: #### D IG #### [facility] [address] [place] [address] Dr. Latia Rodriguez DRUG SCREEN RAPID (URINE)on 07-12-2022 AMP Positive Abnormal NEGATIVE [facility] Comment on above: Performed By: #### T 3TOTAL #### [facility] [address] [place] [address] Dr. Latia Rodriguez BAR Negative Normal NEGATIVE [facility] Comment on above: Performed By: #### T 3TOTAL #### [facility] [address] [place] [address] Dr. Latia Rodriguez BUP Negative Normal NEGATIVE [facility] Comment on above: Performed By: #### T 3TOTAL #### [facility] [address] [place] [address] Dr. Latia Rodriguez BZO Positive Abnormal NEGATIVE [facility] Comment on above: Performed By: #### T 3TOTAL #### [facility] [address] [place] [address] Dr. Latia Rodriguez MYRTLE Negative Normal NEGATIVE [facility] Comment on above: Performed By: #### T 3TOTAL #### [facility] [address] [place] [address] Dr. Latia Rodriguez CUT-OFFS SEE BELOW Normal [facility] Comment on above: Result Comment: AMP (Amphetamine): 500ng/mL, BAR (Barbituates): 200 ng/mL, BZO (Benzodiazepines): 150 ng/mL, BUP (Buprenorphine): 10 ng/mL, MYRTLE (Cocaine): 150 ng/mL, mAMP (Methamphetamine): 500 ng/mL, MTD (Methadone): 200 ng/mL, OPI (Opiates): 100 ng/mL, OXY (Oxycodone): 100 ng/mL, PCP (Phencyclidine): 25 ng/mL, PPX (Propoxyphene): 300 ng/mL, THC (Cannabinoids): 50 ng/mL, TCA (Trycyclic Antidepressants): 300 ng/mL Performed By: #### T 3TOTAL #### [facility] [address] [place] [address] Dr. Latia Rodriguez DRUG CUT HEADER DRUG CLASS TEST SYSTEM CUT-OFF CONCENTRATIONS ARE FOLLOWS: Normal [facility] Comment on above: Performed By: #### T 3TOTAL #### [facility] [address] [place] [address] Dr. Latia Rodriguez mAMP Positive Abnormal NEGATIVE [facility] Comment on above: Performed By: #### T 3TOTAL #### [facility] [address] [place] [address] Dr. Latia Rodriguez MTD Negative Normal NEGATIVE [facility] Comment on above: Performed By: #### T 3TOTAL #### [facility] [address] [place], [place] [id number] Dr. Latia Rodriguez OPI Positive Abnormal NEGATIVE [facility] Comment on above: Performed By: #### T 3TOTAL #### [facility] [address] [place] [address] Dr. Latia Rodriguez OXY Negative Normal NEGATIVE [facility] Comment on above: Performed By: #### T 3TOTAL #### [facility] [address] [place] [address] Dr. Latia Rodriguez PCP Negative Normal NEGATIVE [facility] Comment on above: Performed By: #### T 3TOTAL #### [facility] [address] [place] [address] Dr. Latia Rodriguez PPX Negative Normal NEGATIVE [facility] Comment on above: Performed By: #### T 3TOTAL #### [facility] [address] [place] [address] Dr. Latia Rodriguez TCA Negative Normal NEGATIVE [facility] Comment on above: Performed By: #### T 3TOTAL #### [facility] [address] [place] [address] Dr. Latia Rodriguez THC Negative Normal NEGATIVE [facility] Comment on above: Performed By: #### T 3TOTAL #### [facility] [address] [place] [address] Dr. Latia Rodriguez ER URINE PROFILEon 2 Bilirubin Ql (U) Negative Normal NEGATIVE [facility] Comment on above: Performed By: #### T 3TOTAL #### [facility] [address] [place] [address] Dr. Latia Rodriguez Clarity (U) CLEAR Normal CLEAR [facility] Comment on above: Performed By: #### T 3TOTAL #### [facility] [address] [place] [address] Dr. Latia Rodriguez Color (U) LT. YELLOW Normal YELLOW [facility] Comment on above: Performed By: #### T 3TOTAL #### [facility] [address] [place] [address] Dr. Latia Rodriguez ERUBOWEN A micrscopic examination will be performed if indicated. Normal [facility] Comment on above: Performed By: #### T 3TOTAL #### [facility] [address] [place] [address] Dr. Latia Rodriguez Glucose Ql (U) Negative Normal NEGATIVE [facility] Comment on above: Performed By: #### T 3TOTAL #### [facility] [address] [place] [address] Dr. Latia Rodriguez Hemoglobin Ql (U) Negative Normal NEGATIVE [facility] Comment on above: Performed By: #### T 3TOTAL #### [facility] [address] [address] [address] Latia Rodriguez Ketones Ql (U) Negative Normal NEGATIVE [facility] Comment on above: Performed By: #### T 3TOTAL #### [facility] [address] [place] [address] Dr. Latia Rodriguez LEUKOCYTES Negative Normal NEGATIVE [facility] Comment on above: Performed By: #### T 3TOTAL #### [facility] [address] [place] [address] Dr. Latia Rodriguez Nitrite Ql (U) Negative Normal NEGATIVE [facility] Comment on above: Performed By: #### T 3TOTAL #### [facility] [address] [place] [address] Dr. Latia Rodriguez pH (U) 6.0 [pH] Normal 5-9 [facility] Comment on above: Performed By: #### T 3TOTAL #### [facility] [address] [place] [address] Dr. Latia Rodriguez SPEC GRAVITY 1.025 Normal 1.005-<=1. 025 [facility] Comment on above: Performed By: #### T 3TOTAL #### [facility] [address] [place] [address] Dr. Latia Rodriguez UA PROTEIN Negative Normal NEGATIVE/ TRACE [facility] Comment on above: Performed By: #### T 3TOTAL #### [facility] [address] [place] [address] Dr. Latia Rodriguez UR MICRO IND NOT INDICATED Normal [facility] Comment on above: Performed By: #### T 3TOTAL #### [facility] [address] [place] [address] Dr. Latia Rodriguez Urobilinogen Qn (U) 0.2 {Chance'U}/dL Normal 0.2 - 1. 0 [facility] Comment on above: Performed By: #### T 3TOTAL #### [facility] [address] [place] [address] Dr. Latia Rodriguez ETHANOL (BLD ALC)on 07-12-20 22 ALC NOTE NOTE: 80 mg/dl is the legal limit for a blood alcohol level Normal [facility] Comment on above: Performed By: #### T 3TOTAL #### [facility] [address] [place] [address] Dr. Latia Rodriguez Ethanol [Mass/Vol] mg/dL Normal [facility] Comment on above: Performed By: #### T 3TOTAL #### [facility] [address] [place] [address] Dr. Latia Rodriguez LACTATE/LACTIC ACIDon 2021 Lactate [Moles/Vol] 0.9 mmol/L Normal 0.4-1.9 [facility] Comment on above: Performed By: #### T 3TOTAL #### [facility] [address] [place] [address] Dr. Latia Rodriguez Lactate [Moles/Vol] 1.0 mmol/L Normal 0.4-1.9 [facility] Comment on above: Performed By: #### P OCGLUC #### [facility] [address] [place] [address] Dr. Latia Rodriguez PH VENOUS BLOODon 07-12-2022 PCO2 VENOUS 46.3 mmHg Normal 40.0-52.0 [facility] Comment on above: Performed By: #### D IG #### [facility] [address] [place] [address] Dr. Latia Rodriguez pH VENOUS 7.314 Critically low 7.330-7.43 0 [facility] Comment on above: Performed By: #### D IG #### [facility] [address] [place] [address] Dr. Latia Rodriguez PROF 14(COMP METB)on 022 Albumin [Mass/Vol] 3.5 g/dL Normal 3.4-5.0 [facility] Comment on above: Performed By: #### P OCGLUC #### [facility] [address] [address] [address] Latia Rodriguez Albumin/Globulin [Mass ratio] 1.1 {ratio} Normal [facility] Comment on above: Performed By: #### P OCGLUC #### [facility] [address] [address] [address] Latia Rodriguez ALP [Catalytic activity/Vol] 74 U/L Normal 46-116 [facility] Comment on above: Performed By: #### P OCGLUC #### [facility] [address] [address] [address] Latia Rodriguez ALT [Catalytic activity/Vol] 44 U/L Normal 16-63 [facility] Comment on above: Performed By: #### P OCGLUC #### [facility] [address] [address] [address] Latia Rodriguez Anion gap [Moles/Vol] 9.0 mmol/L Normal [facility] Comment on above: Performed By: #### P OCGLUC #### [facility] [address] [address] [address] Latia Rodriguez AST [Catalytic activity/Vol] 32 U/L Normal 15-37 [facility] Comment on above: Performed By: #### P OCGLUC #### [facility] [address] [address] [address] Latia Rodriguez Bilirubin [Mass/Vol] 0.3 mg/dL Normal 0.2-1.0 [facility] Comment on above: Performed By: #### P OCGLUC #### [facility] [address] [address] [address] Latia Rodriguez Calcium [Mass/Vol] 8.3 mg/dL Critically low 8.5-10.1 [facility] Comment on above: Performed By: #### P OCGLUC #### [facility] [address] [address] [address] Latia Rodriguez Chloride [Moles/Vol] 105 mmol/L Normal 98-107 [facility] Comment on above: Performed By: #### P OCGLUC #### [facility] [address] [address] [address] Latia Rodriguez CO2 [Moles/Vol] 27.8 mmol/L Normal 21.0-32.0 [facility] Comment on above: Performed By: #### P OCGLUC #### [facility] [address] [address] [address] Latia Rodriguez Creatinine [Mass/Vol] 1.08 mg/dL Normal 0.70-1.30 [facility] Comment on above: Performed By: #### P OCGLUC #### [facility] [address] [address] [address] Latia Rodriguez EGFR-AF WALLISIAN >60 Normal >=60 [facility] Comment on above: Performed By: #### P OCGLUC #### [facility] [address] [address] [address] Latia Rodriguez EGFR-NON AF WALLISIAN >60 Normal >=60 [facility] Comment on above: Performed By: #### P OCGLUC #### [facility] [address] [address] [address] Latia Rodriguez Globulin (S) [Mass/Vol] 3.2 g/dL Normal [facility] Comment on above: Performed By: #### P OCGLUC #### [facility] [address] [address] [address] Latia Rodriguez Glucose [Mass/Vol] 135 mg/dL Critically high 74-106 [facility] Comment on above: Performed By: #### P OCGLUC #### [facility] [address] [address] [address] Latia Rodriguez Potassium [Moles/Vol] 4.8 mmol/L Normal 3.5-5.1 [facility] Comment on above: Performed By: #### P OCGLUC #### [facility] [address] [address] [address] Latia Rodriguez Protein [Mass/Vol] 6.7 g/dL Normal 6.4-8.2 [facility] Comment on above: Performed By: #### P OCGLUC #### [facility] [address] [place] [address] Dr. Latia Rodriguez Sodium [Moles/Vol] 137 mmol/L Normal 136-145 [facility] Comment on above: Performed By: #### P OCGLUC #### [facility] [address] [place] [address] Dr. Latia Rodriguez Urea nitrogen [Mass/Vol] 16.0 mg/dL Normal 7.0-18.0 [facility] Comment on above: Performed By: #### P OCGLUC #### [facility] [address] [place] [address] Dr. Latia Rodriguez Urea nitrogen/Creatinine [Ma ss ratio] 14.8 mg/mg Normal [facility] Comment on above: Performed By: #### P OCGLUC #### [facility] [address] [place] [address] Dr. Latia Rodriguez PROTIMEon 07-12-2022 INR Coag (PPP) [Relative time] 1.04 {INR} Normal [facility] Comment on above: Performed By: #### P OCGLUC #### [facility] [address] [place] [address] Dr. Latia Rodriguez INR GUIDELINES SEE BELOW Normal [facility] Comment on above: Result Comment: ANIVAL RED INR: 2.0 - 3.0 CONDITIONS NOT LISTED BELOW 2.5 - 3.5 FOR PROSTHETIC HEART VALVE REPLACEMENT 2.5 - 3.5 RECURRENT THROMBOSIS Performed By: #### P OCGLUC #### [facility] [address] [place] [address] Dr. Latia Rodriguez PT Coag (PPP) [Time] 11.2 s Normal 9.0-11.6 [facility] Comment on above: Performed By: #### P OCGLUC #### [facility] [address] [place] [address] Dr. Latia Rodriguez PTTon 07-12-2022 aPTT Coag (Bld) [Time] 25.8 s Normal 22.3-36.[address] [facility] Comment on above: Performed By: #### P OCGLUC #### [facility] [address] [place] [address] Dr. Latia Rodriguez SALICYLATEon 07-12-2022 SALICYLATE <2.8 Normal <=19.9 [facility] Comment on above: Performed By: #### P OCGLUC #### [facility] [address] [address] [address] Latia Rodriguez TROPONIN, HIGH SENSITIVITYon 07-12-2022 HSTROP 19.0 pg/mL Normal 4.0-76.1 [facility] Comment on above: Result Comment: CUT- OFF POINTS HAVE BEEN ESTABLISHED BASED ON THE FOURTH UNIVERSAL DEFINITIONS OF MYOCARDIAL INFARCTION. THE UPPER REFERENCE LIMIT (URL) OF TROPONIN, DEFINED THE 99TH PERCENTILE OF cTnI DISTRIBUTION IN A REFERENCE POPULATION, HAS BEEN CONFIRMED THE DECISION THRESHOLD FOR [place] DIAGNOSIS. Performed By: #### P OCGLUC #### [facility] [address] [place] [address] Dr. Latia Rodriguez TSHon 07-12-2022 TSH 3.195 uIU/mL Normal 0.358-3.74 0 [facility] Comment on above: Performed By: #### P OCGLUC #### [facility] [address] [place] [address] Dr. Latia Rodriguez XR CHEST 1 Von 07-12-2022 XR CHEST 1 V EXAMINATION: XR CHEST 1 V HISTORY: Unspecified fall COMPARISON: XR chest 05/26/2022 FINDINGS: LUNGS: Diffuse opacities throughout the lungs, left greater than right. There is a more focal density within the lateral right lung and perihilar regions. VASCULATURE: No increased pulmonary vasculature. PLEURA: No pneumothorax, effusion, or pleural thickening. CARDIAC: No cardiomegaly or cardiac silhouette abnormality. MEDIASTINUM: No visible mass or adenopathy. BONES: No fracture or visible bone lesion. OTHER: Negative. IMPRESSION: 1. Marked left, moderate right diffuse pulmonary infiltrates; pneumonia versus pulmonary edema. 2. Areas of greater density within right lung are suspicious for a lateral pulmonary nodule and left perihilar nodules versus enlarged lymph nodes. Electronically authenticated by: KODY MACIEL Date: 2022-07-12 16:32 Normal [facility] CARDIAC RAVEN ADMITon 022 CK [Catalytic activity/Vol] 47 U/L Normal 39-308 [facility] Comment on above: Performed By: #### C MREP #### [facility] [address] [place] [address] Dr. Latia Rodriguez CK.MB [Mass/Vol] 1.09 ng/mL Normal <=3.60 [facility] Comment on above: Performed By: #### C MREP #### [facility] [address] [place] [address] Dr. Latia Rodriguez HSTROP 58.7 pg/mL Normal 4.0-76.1 [facility] Comment on above: Result Comment: CUT- OFF POINTS HAVE BEEN ESTABLISHED BASED ON THE FOURTH UNIVERSAL DEFINITIONS OF MYOCARDIAL INFARCTION. THE UPPER REFERENCE LIMIT (URL) OF TROPONIN, DEFINED THE 99TH PERCENTILE OF cTnI DISTRIBUTION IN A REFERENCE POPULATION, HAS BEEN CONFIRMED THE DECISION THRESHOLD FOR [place] DIAGNOSIS. Performed By: #### C MREP #### [facility] [address] [place] [address] Dr. Latia Rodriguez ZIYAD 22 ng/mL Normal 16-96 [facility] Comment on above: Performed By: #### C MREP #### [facility] [address] [place] [address] Dr. Latia Rodriguez CBC AUTO DIFFon 05-27-2022 BASO # 0.1 103/ul Normal 0.0-0.1 [facility] Comment on above: Performed By: #### P OCGLUC #### [facility] [address] [place] [address] Dr. Latia Rodriguez Basophils/100 WBC (Bld) 1.0 % Normal 0.2-2.0 [facility] Comment on above: Performed By: #### P OCGLUC #### [facility] [address] [place] [address] Dr. Latia Rodriguez EO # 0.4 103/ul Normal 0.0-0.7 [facility] Comment on above: Performed By: #### P OCGLUC #### [facility] [address] [place] [address] Dr. Latia Rodriguez Eosinophils/100 WBC (Bld) 4.0 % Normal 0.9-7.0 [facility] Comment on above: Performed By: #### P OCGLUC #### [facility] [address] [address] [address] Latia Rodriguez Erythrocyte distribution wid th (RBC) [Ratio] 13.0 % Normal 11.0-15.0 [facility] Comment on above: Performed By: #### P OCGLUC #### [facility] [address] [place] [address] Dr. Latia Rodriguez Hematocrit (Bld) [Volume fraction] 43.7 % Normal 42.0-54.0 [facility] Comment on above: Performed By: #### P OCGLUC #### [facility] [address] [place] [address] Dr. Latia Rodriguez Hemoglobin (Bld) [Mass/Vol] 14.5 g/dL Normal 14.0-18. 0 [facility] Comment on above: Performed By: #### P OCGLUC #### [facility] [address] [place] [address] Dr. Latia Rodriguez IG # 0.05 10e3/ul Critically high 0.00-0.03 [facility] Comment on above: Performed By: #### P OCGLUC #### [facility] [address] [place] [address] Dr. Latia Rodriguez IG % 0.5 % Normal 0.0-0.5 [facility] Comment on above: Performed By: #### P OCGLUC #### [facility] [address] [place] [address] Dr. Latia Rodriguez LYMPH # 3.8 103/ul Normal 1.2-3.8 [facility] Comment on above: Performed By: #### P OCGLUC #### [facility] [address] [place] [address] Dr. Latia Rodriguez Lymphocytes/100 WBC (Bld) 37.4 % Normal 20.5-60.0 [facility] Comment on above: Performed By: #### P OCGLUC #### [facility] [address] [place] [address] Dr. Latia Rodriguez MANUAL DIFF REQ NO Normal [facility] Comment on above: Performed By: #### P OCGLUC #### [facility] [address] [address] [address] Latia Rodriguez MCH (RBC) [Entitic mass] 29.8 pg Normal 25.9-34.0 [facility] Comment on above: Performed By: #### P OCGLUC #### [facility] [address] [place] [address] Dr. Latia Rodriguez MCHC (RBC) [Mass/Vol] 33.2 g/dL Normal 29.9-35.2 [facility] Comment on above: Performed By: #### P OCGLUC #### [facility] [address] [place] [address] Dr. Latia Rodriguez MCV (RBC) [Entitic vol] 89.9 fL Normal 80.0-94.0 [facility] Comment on above: Performed By: #### P OCGLUC #### [facility] [address] [place] [address] Dr. Latia Rodriguez MONO # 0.8 103/ul Normal 0.3-0.8 [facility] Comment on above: Performed By: #### P OCGLUC #### [facility] [address] [place] [address] Dr. Latia Rodriguez Monocytes/100 WBC (Bld) 7.5 % Normal 1.7-12.0 [facility] Comment on above: Performed By: #### P OCGLUC #### [facility] [address] [place] [address] Dr. Latia Rodriguez NEUT # 5.0 103/ul Normal 1.4-6.5 [facility] Comment on above: Performed By: #### P OCGLUC #### [facility] [address] [place] [address] Dr. Latia Rodriguez Neutrophils/100 WBC (Bld) 49.6 % Normal 43.0-75.0 [facility] Comment on above: Performed By: #### P OCGLUC #### [facility] [address] [place] [address] Dr. Latia Rodriguez Platelet mean volume (Bld) [Entitic vol] 9.0 fL Critically low 9.5-13.5 [facility] Comment on above: Performed By: #### P OCGLUC #### [facility] [address] [address] [address] Latia Rodriguez PLT 374 103/ul Normal 150-450 [facility] Comment on above: Performed By: #### P OCGLUC #### [facility] [address] [place] [address] Dr. Latia Rodriguez RBC 4.86 106/ul Normal 4.70-6.10 [facility] Comment on above: Performed By: #### P OCGLUC #### [facility] [address] [place] [address] Dr. Latia Rodriguez WBC 10.0 103/ul Normal 4.0-11.0 [facility] Comment on above: Performed By: #### P OCGLUC #### [facility] [address] [place] [address] Dr. Latia Rodriguez DIGOXINon 05-27-2022 DIG 1.0 ng/mL Normal 0.9-2.0 [facility] Comment on above: Performed By: #### C MREP #### [facility] [address] [place] [address] Dr. Latia Rodriguez PROF 14(COMP METB)on 022 Albumin [Mass/Vol] g/dL Normal 3.4-5.0 [facility] Comment on above: Performed By: #### C MREP #### [facility] [address] [place] [address] Dr. Latia Rodriguez Albumin/Globulin [Mass ratio] 1.2 {ratio} Normal [facility] Comment on above: Performed By: #### C MREP #### [facility] [address] [place] [address] Dr. Latia Rodriguez ALP [Catalytic activity/Vol] 84 U/L Normal 46-116 [facility] Comment on above: Performed By: #### C MREP #### [facility] [address] [place] [address] Dr. Latia Rodriguez ALT [Catalytic activity/Vol] 76 U/L Critically high 16 -63 [facility] Comment on above: Performed By: #### C MREP #### [facility] [address] [address] [address] Latia Rodriguez Anion gap [Moles/Vol] 12.7 mmol/L Normal Th [facility] Comment on above: Performed By: #### C MREP #### [facility] [address] [address] [address] Latia Rodriguez AST [Catalytic activity/Vol] 27 U/L Normal 15-37 [facility] Comment on above: Performed By: #### C MREP #### [facility] [address] [address] [address] Latia Rodriguez Bilirubin [Mass/Vol] 0.3 mg/dL Normal 0.2-1.0 [facility] Comment on above: Performed By: #### C MREP #### [facility] [address] [place] [address] Dr. Latia Rodriguez Calcium [Mass/Vol] 8.7 mg/dL Normal 8.5-10.1 [facility] Comment on above: Performed By: #### C MREP #### [facility] [address] [place] [address] Dr. Latia Rodriguez Chloride [Moles/Vol] 107 mmol/L Normal 98-107 [facility] Comment on above: Performed By: #### C MREP #### [facility] [address] [address] [address] Latia Rodriguez CO2 [Moles/Vol] 26.5 mmol/L Normal 21.0-32.0 [facility] Comment on above: Performed By: #### C MREP #### [facility] [address] [address] [address] Latia Rodriguez Creatinine [Mass/Vol] 0.91 mg/dL Normal 0.70-1.30 [facility] Comment on above: Performed By: #### C MREP #### [facility] [address] [place] [address] Dr. Latia Rodriguez EGFR-AF WALLISIAN >60 Normal >=60 [facility] Comment on above: Performed By: #### C MREP #### [facility] [address] [place] [address] Dr. Latia Rodriguez EGFR-NON AF WALLISIAN >60 Normal >=60 [facility] Comment on above: Performed By: #### C MREP #### [facility] [address] [place] [address] Dr. Latia Rodriguez Globulin (S) [Mass/Vol] 2.9 g/dL Normal [facility] Comment on above: Performed By: #### C MREP #### [facility] [address] [place] [address] Dr. Latia Rodriguez Glucose [Mass/Vol] 108 mg/dL Critically high 74-106 [facility] Comment on above: Performed By: #### C MREP #### [facility] [address] [place] [address] Dr. Latia Rodriguez Potassium [Moles/Vol] 4.2 mmol/L Normal 3.5-5.1 [facility] Comment on above: Performed By: #### C MREP #### [facility] [address] [place] [address] Dr. Latia Rodriguez Protein [Mass/Vol] 6.3 g/dL Critically low 6.4-8.2 [facility] Comment on above: Performed By: #### C MREP #### [facility] [address] [place] [address] Dr. Latia Rodriguez Sodium [Moles/Vol] 142 mmol/L Normal 136-145 [facility] Comment on above: Performed By: #### C MREP #### [facility] [address] [place] [address] Dr. Latia Rodriguez Urea nitrogen [Mass/Vol] 15.0 mg/dL Normal 7.0-18.0 [facility] Comment on above: Performed By: #### C MREP #### [facility] [address] [place] [address] Dr. Latia Rodriguez Urea nitrogen/Creatinine [Ma ss ratio] 16.5 mg/mg Normal [facility] Comment on above: Performed By: #### C MREP #### [facility] [address] [place] [address] Dr. Latia Rodriguez T3, TOTAL (TRIIODOTHYRONINE) on 05-27-2022 T3, TOTAL 198 ng/dL Critically high 71-180 [facility] Comment on above: Performed By: #### T 3TOTAL #### [facility] [address] [place] [address] Dr. Latia Rodriguez T4 LABCORPon 05-27-2022 T4 [Mass/Vol] 9.0 ug/dL Normal 4.5-12.0 [facility] Comment on above: Performed By: #### C MREP #### [facility] [address] [place] [address] Dr. Latia Rodriguez AMYLASEon 05-26-2022 Amylase [Catalytic activity/Vol] 44 U/L Normal 25-115 [facility] Comment on above: Performed By: #### T 3TOTAL #### [facility] [address] [place] [address] Dr. Latia Rodriguez BNPon 05-26-2022 Natriuretic peptide B (Bld) [Mass/Vol] 122.0 pg/mL Normal <=900.0 [facility] Comment on above: Performed By: #### T 3TOTAL #### [facility] [address] [place] [address] Dr. Latia Rodriguez CARDIAC RAVEN 3-6on 2 CK [Catalytic activity/Vol] 58 U/L Normal 39-308 [facility] Comment on above: Performed By: #### L ACT #### [facility] [address] [place] [address] Dr. Latia Rodriguez CK.MB [Mass/Vol] 1.49 ng/mL Normal <=3.60 [facility] Comment on above: Performed By: #### L ACT #### [facility] [address] [place] [address] Dr. Latia Rodriguez HSTROP 57.2 pg/mL Normal 4.0-76.1 [facility] Comment on above: Result Comment: CUT- OFF POINTS HAVE BEEN ESTABLISHED BASED ON THE FOURTH UNIVERSAL DEFINITIONS OF MYOCARDIAL INFARCTION. THE UPPER REFERENCE LIMIT (URL) OF TROPONIN, DEFINED THE 99TH PERCENTILE OF cTnI DISTRIBUTION IN A REFERENCE POPULATION, HAS BEEN CONFIRMED THE DECISION THRESHOLD FOR [place] DIAGNOSIS. Performed By: #### L ACT #### [facility] [address] [address] [address] Latia Rodriguez CK [Catalytic activity/Vol] 65 U/L Normal 39-308 [facility] Comment on above: Performed By: #### D IG #### [facility] [address] [address] [address] Latia Rodriguez CK.MB [Mass/Vol] 1.30 ng/mL Normal <=3.60 [facility] Comment on above: Performed By: #### D IG #### [facility] [address] [address] [address] Latia Rodriguez HSTROP 44.2 pg/mL Normal 4.0-76.1 [facility] Comment on above: Result Comment: CUT- OFF POINTS HAVE BEEN ESTABLISHED BASED ON THE FOURTH UNIVERSAL DEFINITIONS OF MYOCARDIAL INFARCTION. THE UPPER REFERENCE LIMIT (URL) OF TROPONIN, DEFINED THE 99TH PERCENTILE OF cTnI DISTRIBUTION IN A REFERENCE POPULATION, HAS BEEN CONFIRMED THE DECISION THRESHOLD FOR [place] DIAGNOSIS. Performed By: #### D IG #### [facility] [address] [address] [address] Latia Rodriguez CARDIAC RAVEN ADMITon 022 CK [Catalytic activity/Vol] 72 U/L Normal 39-308 [facility] Comment on above: Performed By: #### T 3TOTAL #### [facility] [address] [address] [address] Latia Rodriguez CK.MB [Mass/Vol] 1.04 ng/mL Normal <=3.60 [facility] Comment on above: Performed By: #### T 3TOTAL #### [facility] [address] [address] [address] Latia Rodriguez HSTROP 23.5 pg/mL Normal 4.0-76.1 [facility] Comment on above: Result Comment: CUT- OFF POINTS HAVE BEEN ESTABLISHED BASED ON THE FOURTH UNIVERSAL DEFINITIONS OF MYOCARDIAL INFARCTION. THE UPPER REFERENCE LIMIT (URL) OF TROPONIN, DEFINED THE 99TH PERCENTILE OF cTnI DISTRIBUTION IN A REFERENCE POPULATION, HAS BEEN CONFIRMED THE DECISION THRESHOLD FOR [place] DIAGNOSIS. Performed By: #### T 3TOTAL #### [facility] [address] [place] [address] Dr. Latia Rodriguez ZIYAD 46 ng/mL Normal 16-96 [facility] Comment on above: Performed By: #### T 3TOTAL #### [facility] [address] [place] [address] Dr. Latia Rodriguez CBC AUTO DIFFon 05-26-2022 BASO # 0.1 103/ul Normal 0.0-0.1 [facility] Comment on above: Performed By: #### C MREP #### [facility] [address] [place] [address] Dr. Latia Rodriguez Basophils/100 WBC (Bld) 0.6 % Normal 0.2-2.0 [facility] Comment on above: Performed By: #### C MREP #### [facility] [address] [place] [address] Dr. Latia Rodriguez EO # 0.4 103/ul Normal 0.0-0.7 [facility] Comment on above: Performed By: #### C MREP #### [facility] [address] [place] [address] Dr. Latia Rodriguez Eosinophils/100 WBC (Bld) 4.3 % Normal 0.9-7.0 [facility] Comment on above: Performed By: #### C MREP #### [facility] [address] [place] [address] Dr. Latia Rodriguez Erythrocyte distribution wid th (RBC) [Ratio] 12.7 % Normal 11.0-15.0 [facility] Comment on above: Performed By: #### C MREP #### [facility] [address] [place] [address] Dr. Latia Rodriguez Hematocrit (Bld) [Volume fraction] 42.7 % Normal 42.0-54.0 [facility] Comment on above: Performed By: #### C MREP #### [facility] [address] [place] [address] Dr. Latia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 [address] Performed By: #### C DP ####[address] [address] Eosinophils 0.00 10*3/uL Normal 0.0-0.4 [facility] Comment on above: Performed By: #### C DP ####[address] [address] Eosinophils/100 leukocytes 0 % Normal [facility] Comment on above: Performed By: #### C DP ####[address] [address] Lymphocytes 2.02 10*3/uL Normal 1.0-4.8 [facility] Comment on above: Performed By: #### C DP ####[address] [address] Lymphocytes/100 leukocytes 13 % Normal [facility] Comment on above: Performed By: #### C DP ####[address] [address] Metamyelocytes/100 leukocytes 2 % Normal [facility] Comment on above: Performed By: #### C DP ####[address] [address] Monocytes 0.78 10*3/uL Normal 0.1-0.8 [facility] Comment on above: Performed By: #### C DP ####[address] [address] Monocytes/100 leukocytes 5 % Normal [facility] Comment on above: Performed By: #### C DP ####[address] [address] Neutrophil (Seg) 80 % Normal [facility] Comment on above: Performed By: #### C DP ####[address] [address] Erythrocyte distribution wid th Auto Ratio (RBC) 13.3 % Normal 12.5-15.4 [facility] Comment on above: Performed By: #### C DP ####[address] [address] Erythrocytes (RBC) 4.12 10*6/uL Low 4.5-5.9 [facility] Comment on above: Performed By: #### C DP ####[address] [address] Hematocrit (HCT) 37.1 % Low 41-53 [facility] Comment on above: Performed By: #### C DP ####[address] [address] Hemoglobin mass conc (Bld) 12.4 g/dL Low 13.5-17.5 [facility] Comment on above: Performed By: #### C DP ####[address] [address] MCH 30.1 pg Normal 26-34 [facility] Comment on above: Performed By: #### C DP ####[address] [address] MCHC mass conc (RBC) 33.4 g/dL Normal 31-37 [facility] Comment on above: Performed By: #### C DP ####[address] [address] MCV 90.0 fL Normal 80-100 [facility] Comment on above: Performed By: #### C DP ####[address] [address] Platelet mean volume (PMV) 6.8 fL Normal 6.0-12.0 [facility] Comment on above: Performed By: #### C DP ####[address] [address] Platelets 1143 10*3/uL Critically high 140-450 [facility] Comment on above: Result Comment: Prev ious Alert Value Reported Performed By: #### C DP ####[address] [address] WBC (Leukocytes) 15.5 10*3/uL High 3.5-11.0 [facility] Comment on above: Performed By: #### C DP ####[address] [address] Auto Diff Performed NOT REPORTED Normal [facility] Comment on above: Performed By: #### C DP ####[address] [address] Erythrocyte morphology NOT REPORTED Normal [facility] Comment on above: Performed By: #### C DP ####[address] [address] Platelets NOT REPORTED Normal [facility] Comment on above: Performed By: #### C DP ####[address] [address] WBC Morphology NOT REPORTED Normal [facility] Comment on above: Performed By: #### C DP ####[address] [address] Discharge Summaryon 03-13-20 17 HIM IP Note OR Medical Billing Manager Normal [facility] Hgb/Hcton 03-13-2017 Hematocrit (HCT) 38.2 % Low 41-53 [facility] Comment on above: Result Comment: [id number] [place] [address] Performed By: #### H H, PLT ####[address] [address] Hemoglobin mass conc (Bld) 12.7 g/dL Low 13.5-17.5 [facility] Comment on above: Performed By: #### H H, PLT ####[facility] [address] [place] [address] Platelet Counton 03-13-2017 Platelets 1182 10*3/uL Critically high 140-450 [facility] Comment on above: Result Comment: [facility] [address] [place], [place] [id number] [phone] Performed By: #### H H, PLT ####[facility] [place] [address] Vital Signs Date Time Vital Sign Value Performing Clinician Mery perez 01-13-2025 14:43-0400 Body height 154.9 cm Arthur Chappell MD Work Phone: [facility] 01-13-2025 14:43-0400 Body mass index (BMI) [Ratio] 29.48 kg/m2 Arthur Chappell MD Work Phone: [facility] 01-13-2025 14:43-0400 Body weight 70.76 kg Arthur Chappell MD Work Phone: [facility] 01-13-2025 14:43-0400 Diastolic blood pressure 88 mm[Hg] Arthur Chappell MD Work Phone: [facility] 01-13-2025 14:43-0400 Heart rate 102 /min Arthur Chappell MD Work Phone: [facility] 01-13-2025 14:43-0400 Systolic blood pressure 144 mm[Hg] Arthur Chappell MD Work Phone: [facility] [employer] [facility] 10-20-2024 11:30-0500 Body height 157.5 cm Anthony Juan MD Work Phone: [facility] 10-20-2024 11:30-0500 Body mass index (BMI) [Ratio] 30 kg/m2 Anthony Juan MD Work Phone: [facility] 10-20-2024 11:30-0500 Body weight 74.39 kg Anthony Juan MD Work Phone: [facility] 10-20-2024 11:30-0500 Diastolic blood pressure 70 mm[Hg] Anthony Juan MD Work Phone: [facility] 10-20-2024 11:30-0500 Heart rate 88 /min Anthony Juan MD Work Phone: [facility] 10-20-2024 11:30-0500 SaO2% (BldA) [Mass fraction] 94 % Anthony Juan MD Work Phone: [facility] 10-20-2024 11:30-0500 Systolic blood pressure 118 mm[Hg] Anthony Juan MD Work Phone: [facility] 09-24-2024 12:55-0500 Body weight 74.39 kg Wendy Zhong ENGINEERING TEACHER Work Phone: [facility] 09-24-2024 12:55-0500 Diastolic blood pressure 72 mm[Hg] Wendy Zhong ENGINEERING TEACHER Work Phone: [facility] 09-24-2024 12:55-0500 Heart rate 88 /min Wendy Zhong ENGINEERING TEACHER Work Phone: [facility] 09-24-2024 12:55-0500 SaO2% (BldA) [Mass fraction] 96 % Wendy Zhong ENGINEERING TEACHER Work Phone: [facility] 09-24-2024 12:55-0500 Systolic blood pressure 118 mm[Hg] Wendy Zhong ENGINEERING TEACHER Work Phone: [facility] 09-23-2024 13:40-0500 Blood Pressure Location Edward URBAN [facility] 09-23-2024 13:40-0500 Diastolic blood pressure 76 mm[Hg] Edward URBAN [facility] 09-23-2024 13:40-0500 Heart rate 72 /min Edward NILL [facility] [place] 09-23-2024 13:40-0500 Respiratory rate 16 /min Edward NILL [facility] [place] 09-23-2024 13:40-0500 Systolic blood pressure 111 mm[Hg] Edward NILL [facility] 09-02-2024 10:20-0500 Blood Pressure Location Varsha Lue [facility] 09-02-2024 10:20-0500 Body temperature 98.6 [degF] Varsha Lue [facility] 09-02-2024 10:20-0500 Diastolic blood pressure 79 mm[Hg] Varsha Lue [facility] 09-02-2024 10:20-0500 Heart rate 74 /min Varsha Lue [facility] 09-02-2024 10:20-0500 Respiratory rate 18 /min Varsha Lue [facility] 09-02-2024 10:20-0500 Systolic blood pressure 140 mm[Hg] Varsha Lue [facility] 08-26-2024 09:31-0500 Body height 157.5 cm Arthur Chappell MD Work Phone: [facility] [employer] [facility] 08-26-2024 09:31-0500 Body mass index (BMI) [Ratio] 29.95 kg/m2 Arthur Chappell MD Work Phone: [facility] [employer] [facility] 08-26-2024 09:31-0500 Body weight 74.3 kg Arthur Chappell MD Work Phone: [facility] 08-26-2024 09:31-0500 Diastolic blood pressure 76 mm[Hg] Arthur Chappell MD Work Phone: [facility] 08-26-2024 09:31-0500 Heart rate 71 /min Arthur Chappell MD Work Phone: [facility] 08-26-2024 09:31-0500 SaO2% (BldA) [Mass fraction] 96 % Arthur Chappell MD Work Phone: [facility] 08-26-2024 09:31-0500 Systolic blood pressure 130 mm[Hg] Arthur Chpapell MD Work Phone: [facility] 07-20-2024 12:28-0500 Body weight 72.12 kg Christopher Yolanda DO Work Phone: [facility] 07-20-2024 12:28-0500 Diastolic blood pressure 72 mm[Hg] Christopher Yolanda DO Work Phone: [facility] 07-20-2024 12:28-0500 Heart rate 73 /min Christopher Yolanda DO Work Phone: [facility] 07-20-2024 12:28-0500 SaO2% (BldA) [Mass fraction] 94 % Christopher Yolanda DO Work Phone: [facility] 07-20-2024 12:28-0500 Systolic blood pressure 113 mm[Hg] Christopher Yolanda DO Work Phone: [facility] 04-23-2024 11:43-0400 Body height 157.5 cm Jude Alberto PTA-ADMISSIONS SUPERVISOR Work Phone: [facility] 04-23-2024 11:43-0400 Body mass index (BMI) [Ratio] 27.79 kg/m2 Jude Alberto PTA-ADMISSIONS SUPERVISOR Work Phone: [facility] 04-23-2024 11:43-0400 Body weight 68.95 kg Jude Arrietaer PTA-ADMISSIONS SUPERVISOR [facility] 04-23-2024 11:43-0400 Diastolic blood pressure 70 mm[Hg] Savitachejenny TaylorDolly PTA-ADMISSIONS SUPERVISOR Work Phone: [facility] [employer] [facility] 04-23-2024 11:43-0400 Heart rate 84 /min Jude Greensser PTA-ADMISSIONS SUPERVISOR Work Phone: [facility] [employer] [facility] 04-23-2024 11:43-0400 SaO2% (BldA) [Mass fraction] 99 % Savitachejenny Dolly PTA-ADMISSIONS SUPERVISOR Work Phone: [facility] [employer] 04-23-2024 11:43-0400 Systolic blood pressure 138 mm[Hg] Savitachell Dolly PTA-ADMISSIONS SUPERVISOR Work Phone: [facility] [employer] [facility] 11-08-2023 10:16-0500 Body height 157.5 cm Christy Ko MD Work Phone: [facility] 11-08-2023 10:16-0500 Body mass index (BMI) [Ratio] 28.17 kg/m2 Christy Ko MD Work Phone: [facility] [employer] [facility] 11-08-2023 10:16-0500 Body weight 69.85 kg Christy Ko MD [facility]: [facility] 11-08-2023 10:16-0500 Diastolic blood pressure 88 mm[Hg] Christy Ko MD Work Phone: [facility] 11-08-2023 10:16-0500 Heart rate 97 /min Christy Ko MD Work Phone: [facility] 11-08-2023 10:16-0500 SaO2% (BldA) [Mass fraction] 95 % Christy Ko MD Work Phone: [facility] 11-08-2023 10:16-0500 Systolic blood pressure 136 mm[Hg] Christy Ko MD Work Phone: [facility] [employer] [facility] 10-22-2023 11:22-0500 Body temperature 97.81 [degF] Arie Foley MD Work Phone: [facility] [employer] [facility] 10-22-2023 11:22-0500 Diastolic blood pressure 70 mm[Hg] Arie Foley MD Work Phone: [facility] [employer] [facility] 10-22-2023 11:22-0500 Heart rate 83 /min Arie Foley MD Work Phone: [facility] [employer] [facility] 10-22-2023 11:22-0500 Respiratory rate 16 /min Arie Foley MD Work Phone: [facility] 10-22-2023 11:22-0500 SaO2% (BldA) [Mass fraction] 97 % Arie Foley MD Work Phone: [facility] [employer] [facility] 10-22-2023 11:22-0500 Systolic blood pressure 98 mm[Hg] Arie Foley MD Work Phone: [facility] [employer] [facility] 10-22-2023 07:45-0500 Body height 157.5 cm Arie Foley MD Work Phone: [facility] [employer] [facility] 10-22-2023 07:45-0500 Body mass index (BMI) [Ratio] 27.25 kg/m2 Arie Foley MD Work Phone: [facility] 10-22-2023 07:45-0500 Body weight 67.59 kg Arie Foley MD Work Phone: [facility] 2023 10:59-0400 Diastolic blood pressure 100 mm[Hg] Kathy NOEL [facility] 2023 10:59-0400 Mean blood pressure 113 mm[Hg] Kathy NOEL [facility] 2023 10:59-0400 Systolic blood pressure 138 mm[Hg] [employer] [facility] 2023 10:50-0400 Blood Pressure Location [employer] [facility] 2023 10:50-0400 Body temperature 98.24 [degF] [employer] [facility] 2023 10:50-0400 Diastolic blood pressure 90 mm[Hg] [employer] [facility] 2023 10:50-0400 Heart rate 95 /min [employer] [facility] 2023 10:50-0400 Respiratory rate 16 /min [employer] [facility] 2023 10:50-0400 SaO2% (BldA) [Mass fraction] 98 % [employer] [facility] 2023 10:50-0400 Systolic blood pressure 142 mm[Hg] [employer] [facility] 12-11-2022 11:10-0400 Blood Pressure Location Christy [employer] [facility] 12-11-2022 11:10-0400 Diastolic blood pressure 80 mm[Hg] Christy [employer] [facility] 12-11-2022 11:10-0400 Heart rate 93 /min Christy [employer] [facility] 12-11-2022 11:10-0400 Respiratory rate 16 /min Christy RICE [facility] 12-11-2022 11:10-0400 Systolic blood pressure 122 mm[Hg] Christy RICE [facility] 12-03-2022 17:46-0400 Blood Pressure Location Kathy [employer] [facility] 12-03-2022 17:46-0400 Body temperature 97.16 [degF] Kathy [employer] [facility] 12-03-2022 17:46-0400 Diastolic blood pressure 70 mm[Hg] Kathy [employer] [facility] 12-03-2022 17:46-0400 Heart rate 104 /min Kathy [employer] [facility] 12-03-2022 17:46-0400 Respiratory rate 16 /min Kathy [employer] [facility] 12-03-2022 17:46-0400 SaO2% (BldA) [Mass fraction] 98 % Kathy [employer] [facility] 12-03-2022 17:46-0400 Systolic blood pressure 98 mm[Hg] Kathy [employer] [facility] 11-21-2022 13:28-0500 Diastolic blood pressure 110 mm[Hg] Ernesto Kelly [facility] 11-21-2022 13:28-0500 Heart rate 80 /min Ernesto Kelly [facility] 11-21-2022 13:28-0500 Systolic blood pressure 177 mm[Hg] Ernesto Kelly [facility] 11-21-2022 10:56-0500 Diastolic blood pressure 123 mm[Hg] Ernesto Christofferson [facility] 11-21-2022 10:56-0500 Heart rate 80 /min Ernesto Christofferson [facility] 11-21-2022 10:56-0500 Systolic blood pressure 179 mm[Hg] Ernesto Christofferson [facility] 11-21-2022 06:52-0500 Blood Pressure Location Ernesto Christofferson [facility] 11-21-2022 06:52-0500 Body temperature 97.88 [degF] Ernesto Christofferson [facility] 11-21-2022 06:52-0500 Diastolic blood pressure 101 mm[Hg] Ernesto Christofferson [facility] 11-21-2022 06:52-0500 Heart rate 88 /min Ernesto Christofferson [facility] 11-21-2022 06:52-0500 Respiratory rate 16 /min Ernesto Christofferson [facility] 11-21-2022 06:52-0500 SaO2% (BldA) [Mass fraction] 97 % Ernesto Christofferson [facility] 11-21-2022 06:52-0500 Systolic blood pressure 139 mm[Hg] Ernesto Christofferson [facility] 10-02-2022 13:55-0500 Blood Pressure Location Edward URBAN [facility] 10-02-2022 13:55-0500 Diastolic blood pressure 88 mm[Hg] Edward ANNL [facility] 10-02-2022 13:55-0500 Heart rate 72 /min Edward URBAN [facility] 10-02-2022 13:55-0500 Respiratory rate 16 /min Edward NILL [facility] [place] 10-02-2022 13:55-0500 Systolic blood pressure 120 mm[Hg] Edward NILL [facility] [place] 08-07-2022 13:17-0500 Blood Pressure Location Ernesto Kelly [facility] 08-07-2022 13:17-0500 Diastolic blood pressure 67 mm[Hg] Ernesto Kelly [facility] 08-07-2022 13:17-0500 Heart rate 96 /min Ernesto Chongofferson [facility] 08-07-2022 13:17-0500 Respiratory rate 18 /min Ernesto Kelly [facility] 08-07-2022 13:17-0500 SaO2% (BldA) [Mass fraction] 98 % Ernesto Kelly [facility] 08-07-2022 13:17-0500 Systolic blood pressure 120 mm[Hg] Ernesto Christofferson [facility] 06-13-2022 14:17-0400 Blood Pressure Location Edward NILL [facility] [place] 06-13-2022 14:17-0400 Diastolic blood pressure 70 mm[Hg] Edward NILL [facility] [place] 06-13-2022 14:17-0400 Heart rate 92 /min Edward NILL [facility] [place] 06-13-2022 14:17-0400 Respiratory rate 16 /min Edward NILL [facility] [place] 06-13-2022 14:17-0400 Systolic blood pressure 108 mm[Hg] Edward NILL [facility] [place] 05-14-2022 11:25-0400 Blood Pressure Location Kathy [employer] [facility] 05-14-2022 11:25-0400 Body temperature 97.34 [degF] Kathy [employer] [facility] 05-14-2022 11:25-0400 Diastolic blood pressure 80 mm[Hg] Kathy [employer] [facility] 05-14-2022 11:25-0400 Heart rate 104 /min Kathy [employer] [facility] 05-14-2022 11:25-0400 Respiratory rate 16 /min Kathy [employer] [facility] 05-14-2022 11:25-0400 Systolic blood pressure 120 mm[Hg] Kathy [employer] [facility] Encounters Encounter Date Encounter Type Care Provider Facility Start: 09-27-2025 ambulatory SERINA ROTH Facili ty:[facility] Start: 05-05-2025 ambulatory Varsha Peralta Facility:[facility] Start: 03-30-2025 End: 04-01-2025 Refill Jude Alberto PTA-ADMISSIONS SUPERVISOR Work Phone: [facility] Comment on above: Med Refill Start: 03-25-2025 End: 03-25-2025 ambulatory SERINA ROTH Facility:[facility] Start: 02-23-2025 End: 02-23-2025 ambulatory Maxime Hull Facility:[facility] Start: 02-10-2025 End: 02-10-2025 ambulatory Varsha Peralta Facility:[facility] Start: 02-10-2025 End: 02-10-2025 Patient encounter procedure Varsha Peralta [facility] Start: 01-25-2025 End: 01-25-2025 ambulatory Varsha Peralta Facility:[facility] Start: 01-25-2025 End: 01-25-2025 Patient encounter procedure Varsha Peralta [facility] Start: 01-13-2025 End: 01-13-2025 Office outpatient visit 25 minutes Arthur Chappell MD Work Phone: [facility] Comment on above: Paroxysmal atrial fi brillation (CMS-HCC) (Primary Dx) Start: 01-12-2025 End: 01-12-2025 Telephone encounter Anabel Muro CMA [facility] Start: 01-06-2025 End: 01-06-2025 ambulatory Varsha Peralta Facility:[facility] Start: 01-06-2025 End: 01-06-2025 Lab Drop off Varsha Peralta [facility] Start: 01-06-2025 End: 01-06-2025 ambulatory Varsha Peralta Facility:[facility] Start: 11-23-2024 End: 11-23-2024 ambulatory Maxime Hull Facility:[facility] [place] Start: 11-11-2024 End: 11-11-2024 ambulatory [facility] Start: 11-02-2024 End: 11-02-2024 ambulatory [facility] Start: 10-22-2024 End: 10-22-2024 ambulatory Maxime Hull Facility:[facility] [place] Start: 10-20-2024 End: 10-20-2024 Office outpatient visit 25 minutes Radha Drummond MD Work Phone: [facility] Comment on above: Preop cardiovascular exam (Primary Dx); Coronary artery disease involving twin hills coronary artery of twin [place] heart without angina pectoris; Paroxysmal atrial fibrillation (CMS-HCC); Pulmonary emphysema, unspecified emphysema type (CMS-HCC); Hyperlipemia, mixed Start: 10-20-2024 End: 10-20-2024 Patient encounter status Radha Drummond MD [facility]: [facility] Start: 10-19-2024 End: 10-19-2024 Telephone encounter Anabel Muro CMA [facility] Start: 10-19-2024 End: 10-19-2024 ambulatory Maxime Hull Facility:[facility] Start: 10-09-2024 End: 10-13-2024 Telephone encounter Andrea Machado RN [facility] Comment on above: Preop Clearance Start: 10-07-2024 End: 10-07-2024 ambulatory [facility] Start: 09-24-2024 End: 09-24-2024 Bamboo flowsheet Wendy Zhong ENGINEERING TEACHER Work Phone: [facility] Start: 09-24-2024 End: 09-24-2024 Bamboo flowsheet Wendy Zhong ENGINEERING TEACHER Work Phone: [facility] Start: 09-24-2024 End: 09-24-2024 Office outpatient visit 25 minutes Wendy Zhong ENGINEERING TEACHER Work Phone: [facility] Comment on above: Memory impairment (P rimary Dx); PTSD (post-traumatic stress disorder) (CMS/HCC); Anxiety and depression (CMS/HCC); Anisocoria; Complex regional pain syndrome type 1, affecting unspecified site Start: 09-24-2024 End: 09-24-2024 ambulatory WENDY ZHONG Not Available Start: 09-23-2024 End: 09-23-2024 ambulatory Edward URBAN Facility: [place] Start: 09-23-2024 End: 09-23-2024 Patient encounter procedure Edward URBAN [facility] [place] Start: 09-02-2024 End: 09-02-2024 ambulatory Maxime Hull Facility: [place] Start: 09-02-2024 End: 09-02-2024 Patient encounter procedure Varsha Peralta [facility] Start: 08-26-2024 End: 08-26-2024 Telephone encounter Marily Brown LPN [facility] Comment on above: EP Surgery ( PVI/Typ ical) Ep Surgery ( PT Educ ation) Start: 08-26-2024 End: 08-26-2024 Office outpatient new 60 minutes Jude Alberto PTA-ADMISSIONS SUPERVISOR Work Phone: [facility] Comment on above: Paroxysmal atrial fi brillation ([facility]-HCC) Start: 08-25-2024 End: 08-25-2024 Telephone [facility] Start: 07-20-2024 End: 07-20-2024 Bamboo flowsheet Regis Guerrero DO Work Phone: [employer] [facility] Start: 07-20-2024 End: 07-20-2024 Bamboo flowsheet Regis Guerrero DO Work Phone: [employer] [facility] Start: 07-20-2024 End: 07-20-2024 ambulatory Maxime Hull Facility:[facility] Start: 07-20-2024 End: 07-20-2024 Lab Drop off Maxime Hull [facility] Start: 07-20-2024 End: 07-20-2024 Office outpatient visit 25 minutes Regis Guerrero DO Work Phone: [employer] [facility] Comment on above: Memory impairment (P rimary Dx); Complex regional pain syndrome type 1, affecting unspecified site; History of traumatic brain injury Start: 07-20-2024 End: 07-20-2024 ambulatory REGIS GUERRERO Not Available Start: 05-14-2024 End: 05-19-2024 Refill Linda Thomas LPN [facility] Comment on above: Med Refill Start: 04-23-2024 End: 04-23-2024 Telephone encounter [facility] Start: 04-23-2024 End: 04-23-2024 Office outpatient visit 25 minutes Jude Alberto PTA-ADMISSIONS SUPERVISOR Work Phone: [facility] Comment on above: Coronary artery dise ase involving twin hills coronary artery of [place] heart without angina pectoris (Primary Dx); Paroxysmal atrial fibrillation (CMS-HCC); Hyperlipemia, mixed Start: 04-02-2024 End: 04-07-2024 Evaluation and management of inpatient GERARDO ROLLINS [facility] Start: 04-01-2024 End: 04-01-2024 Telephone encounter Andrea Machado RN [facility] Comment on above: Cardiac Medication R efills Start: 02-13-2024 End: 02-13-2024 ambulatory Maxime Hull Facility:[facility] [place] Start: 01-14-2024 End: 01-14-2024 ambulatory Maxime Hull Facility:[facility] [place] Start: 01-10-2024 ambulatory Varsha Peralta Facility:[facility] [place] Start: 11-08-2023 End: 11-08-2023 Office outpatient visit 25 minutes Christy Ko MD Work Phone: [facility] Comment on above: Paroxysmal atrial fi brillation (CMS-HCC) (Primary Dx); Coronary artery disease involving twin hills coronary artery of [place] heart without angina pectoris Start: 11-07-2023 Telephone encounter Anabel Muro CMA [facility] Start: 11-02-2023 Chart abstracting Christy goodman MD Work Phone: [facility] Start: 10-30-2023 End: 10-30-2023 ambulatory Varsha Peralta Facility:[facility] [place] Start: 10-30-2023 End: 10-30-2023 Patient encounter procedure Varsha Peralta [facility] [place] Start: 10-20-2023 End: 10-22-2023 Emergency department patient visit Ernesto Leon MD Work Phone: [facility] Comment on above: Atrial fibrillation with rapid ventricular response (CMS-HCC) (Primary Dx); Paroxysmal atrial fibrillation (CMS-HCC) Start: 2023 End: 2023 Patient encounter procedure Kathy NOEL [facility] Start: 12-11-2022 End: 12-11-2022 Patient encounter procedure Christy Neumann LUCIO [facility] [place] Start: 12-05-2022 End: 12-15-2022 Pre-admission assessment Lizy DUVAL [facility] Start: 12-03-2022 End: 12-03-2022 Patient encounter procedure Kathy NOEL [facility] Start: 11-21-2022 End: 11-21-2022 Admission to same day surgery center Ernesto Kelly [facility] Start: 11-19-2022 End: 11-20-[address] DOCTOR SIGALA Facility:[facility] Start: 10-24-2022 End: 10-24-[address] EDWARD URBAN . Facility:[facility] Start: 10-20-[address] EDWARD URBAN . Facil ity:[facility] Start: 10-02-2022 End: 10-02-2022 Patient encounter procedure Edward URBAN [facility] Surgery [place] Start: 08-07-2022 End: 08-07-2022 Patient encounter procedure Ernesto Kelly [facility] Start: 07-12-2022 End: 07-14-2022 Evaluation and management of inpatient DR DOCTOR SIGALA Facility:[facility] Start: 07-11-2022 End: 07-12-2022 ambulatory CAMACHO ANA Facility:[facility] Start: 06-13-2022 End: 06-13-2022 Patient encounter procedure Edward Nettles WILMAR General Surgery [place]/[facility] Start: 06-07-[address] MELVIN PEREZ . Facili ty:[facility] Start: 05-26-2022 End: 05-27-[address] DOCTOR SIGALA Facility:[facility] Start: 05-14-2022 End: 05-14-2022 Lab Drop off Kathy NOEL [facility] Start: 05-14-2022 End: 05-14-2022 Patient encounter procedure Kathy NOEL [facility] [place] Start: 04-19-[address] KATHY NOEL Facili ty:[facility] Procedures Date Procedure Procedure Detail Performing Clinician Start: 01-13-2025 Ecg routine ecg w/le ast 12 lds w/i&r Arthur Chappell MD Work Phone: Start: 10-20-2024 Ecg routine ecg w/le ast 12 lds w/i&r Anthony Juan MD Work Phone: Start: 12-01-2023 Adult depression scr eening assessment Andrea Machado RN Start: 11-02-2023 Herniated structure (morphologic abnormality) Varsha Peralta Start: 10-22-2023 Myocardial spect mul tiple studies Anuel Bowen MD Work Phone: Start: 10-22-2023 Comprehensive metabo lic panel Aleida Almaraz PTA-ADMISSIONS SUPERVISOR Work Phone: Start: 10-21-2023 Echo tthrc r-t 2d w/wom-mode compl spec&colr d Anuel Bowen MD Work Phone: Start: 10-21-2023 Assay of troponin quantitative Anuel Bowen MD Work Phone: Start: 10-20-2023 Radiologic exam ches t single view Ernesto Leon MD Work Phone: Start: 10-20-2023 Basic metabolic pane l calcium total Ernesto Leon MD Work Phone: Start: 10-20-2023 End: 10-20-2023 Drug screen quantitative digoxin total Ernesto Leon MD Work Phone: Start: 10-20-2023 Ecg routine ecg w/le ast 12 lds trcg only w/o i&r Ernesto Leon MD Work Phone: Start: 12-01-2022 History of percutane ous transluminal coronary angioplasty Kathy NOEL Start: 11-21-2022 Percutaneous coronar y intervention of anterior descending branch of left coronary artery Kathy NOEL Comment on above: PCI of mid LAD & pro ximal LAD Start: 10-24-2022 Colonoscopy Kathy Vargas Start: 08-08-2016 Laser removal of gen ital warts Kathy NOEL Start: 03-16-2016 dental extractions Manny NOEL Asthma (disorder) Varsha Peralta Atrial fibrillation (disorder) Varsha Peralta Cardiac catheter (ph ysical object) Kathy NOEL Cardiac catheterization [facility] Comment on above: March 2024 no stents November 2022 Chronic obstructive lung disease (disorder) Varsha Peralta epi-dural blocks Kathy NOEL Hyperlipidemia (disorder) Charlie Peralta Hypertensive disorde r, systemic arterial (disorder) Varsha Peralta Percutaneous coronar y intervention of anterior descending branch of left coronary artery Ernesto Kelly Comment on above: PCI of mid LAD & pro ximal LAD Reconstruction of fa cial bones Edward URBAN Stented artery (finding) Laura Peralta Vasectomy uni/bi spx w/postop semen exams Kathy NOEL Plan of Treatment Date Care Activity Detail Author Start: 01-13-2026 Adult BMI Screening Adult BMI Screen ing [facility] Start: 01-13-2026 Tobacco Screening Tobacco Screening [facility] Start: 11-25-2025 Adult BMI Screening Adult BMI Screen ing [facility] Start: 11-25-2025 Tobacco Screening Tobacco Screening [facility] Start: 08-26-2025 Adult BMI Screening Adult BMI Screen ing [facility] Start: 08-26-2025 Tobacco Screening Tobacco Screening [facility] Start: 07-14-2025 End: 07-14-2025 Patient encounter procedure 07/14/2025 2:30 PM EDT Office Visit [facility] [address] [place] [address] Arthur Chappell MD [address] [place] [address] [facility] Start: 05-17-2025 Influenza vaccination Influenza Vacc ine [facility] Start: 04-23-2025 Adult BMI Screening Adult BMI Screen ing [facility] Start: 04-23-2025 Tobacco Screening Tobacco Screening [facility] Start: 01-13-2025 End: 01-13-2025 Patient encounter procedure 01/13/2025 2:45 PM EDT Office Visit [facility] [address] [place] [id number] Arthur Chappell MD [address] [place] [address] [facility] Start: 01-13-2025 End: 01-13-2026 Echo complete W/O contrast Echo complete W/O contrast Echocardiography Routine Paroxysmal atrial fibrillation ([facility]-HCC) Expected: 01/13/2025, Expires: 01/13/2026 [employer] Work Phone: Comment on above: Expected: 01/13/2025 , Expires: 01/13/2026 Start: 01-11-2025 Adult BMI Screening Adult BMI Screen ing [facility] Start: 01-11-2025 Tobacco Screening Tobacco Screening [facility] Start: 11-30-2024 Depression Screening Depression Scre ening [facility] Start: 11-25-2024 End: 11-25-2024 Admission to same day surgery center [facility] Comment on above: Afib/Typical Ablatio n - CARTO, ICE [70566 (CPT )] Afib Ablation - CART O, ICE [44883 (CPT )] Start: 11-25-2024 Subsequent hospital visit by physician 11/25/2024 10:30 AM EDT Hospital Encounter [facility] [address] [place] [address] Arthur Chappell MD [address] [place] [address] Paroxysmal atrial fibrillation ([facility]-HCC) [facility] [employer] [place] Comment on above: Paroxysmal atrial fi brillation ([facility]-HCC) Start: 11-18-2024 End: 08-26-2025 Basic metabolic 2000 panel - Serum or Plasma Basic Metabolic Panel Lab Routine Paroxysmal atrial fibrillation ([facility]-HCC) Expected: 11/18/2024, Expires: 08/26/2025 [employer] Work Phone: Comment on above: Expected: 11/18/2024 , Expires: 08/26/2025 Start: 11-18-2024 End: 08-26-2025 CBC W Auto Differential panel - Blood CBC auto differential Lab Routine Paroxysmal atrial fibrillation ([facility]-HCC) Expected: 11/18/2024, Expires: 08/26/2025 [facility] Comment on above: Expected: 11/18/2024 , Expires: 08/26/2025 Start: 11-18-2024 End: 08-26-2025 Magnesium [Mass/volume] in Serum or Plasma Magnesium Lab Routine Paroxysmal atrial fibrillation ([facility]-HCC) Expected: 11/18/2024, Expires: 08/26/2025 [facility] Comment on above: Expected: 11/18/2024 , Expires: 08/26/2025 Start: 11-12-2024 End: 11-12-2024 Patient encounter procedure 11/12/2024 1:40 PM EST Office Visit MARLENE JUÁREZ [address] [place] [phone] Wendy Zhong NP [address] [place] [phone] [facility] VINCENTEVUE Start: 11-08-2024 Adult BMI Screening Adult BMI Screen ing [facility] Start: 11-08-2024 Tobacco Screening Tobacco Screening [facility] Start: 10-27-2024 Adult BMI Screening Adult BMI Screen ing [facility] Start: 10-27-2024 Tobacco Screening Tobacco Screening [facility] Start: 10-25-2024 End: 10-25-2025 MR Brain WO and W contrast IV MR brain w and wo contrast routine Imaging Routine Memory impairment Anisocoria Expected: 10/25/2024 (Approximate), Expires: 10/25/2025 [facility] Work Phone: Comment on above: Expected: 10/25/2024 (Approximate), Expires: 10/25/2025 Start: 10-20-2024 End: 10-20-2024 Patient encounter procedure 10/20/2024 11:00 AM EST [facility] [address] [place] [address] Radha Drummond MD [address] [place] [address] [facility] Start: 09-24-2024 End: 09-24-2024 Patient encounter procedure [facility] Comment on above: Arrived Start: 08-26-2024 End: 08-26-2024 Patient encounter procedure 08/26/2024 10:00 AM EST Office Visit [facility] [address] [place] [id number] [facility] [address] [place] [address] Arthur Chappell MD [address] [place] [address] [facility] Start: 07-20-2024 End: 07-20-2024 Patient encounter procedure 07/20/2024 12:30 PM EST [facility] [address] [place] [address] Regis Guerrero DO [address] [place] [address] [facility] Comment on above: Arrived Start: 05-17-2024 Influenza vaccination Influenza Vacc ine [facility] Start: 04-23-2024 End: 04-23-2025 Event Monitor (In Office) [facility]: Comment on above: Expected: 04/23/2024 , Expires: 04/23/2025 Start: 04-14-2024 End: 04-14-2024 Patient encounter procedure 04/14/2024 11:15 AM EDT Office Visit [facility] [address] [place] [phone] Haroldo Oshea MD [address] [place] [address] [facility] Start: 11-08-2023 End: 11-08-2023 Patient encounter procedure 11/08/2023 10:15 AM EST Office Visit [facility] [address] [place] [address] Christy Ko MD [address] [place] [address] [facility] Start: 05-17-2023 Influenza vaccination Influenza Vacc ine [facility] Start: 2021 Administration of varicella zoster vaccine Zoster (Shingles) Vaccine (1 of 2) [facility] Start: 1990 DTaP,Tdap and Td Vaccines (1 - Tdap) DTaP,Tdap and Td Vaccines (1 - Tdap) [facility] Start: 1989 Adult BMI Follow Up Plan Adult BMI F ollow Up Plan [facility] Start: 1983 Depression Screening [facility]ing [facility] Start: 1971 Tobacco Counseling Tobacco Counselin g [facility] Immunizations Immunization Date Immunization Notes Care Provider Lauren lora NEGATED: Highlighted row has not occurred!2023 SARS-CoV-2 mRNA (tozinameran 5y-11y) vaccine 24x7 [facility] NEGATED: Highlighted row has not occurred!12-03-2022 influenza virus vaccine, unspecified formulation 24x7 [facility] NEGATED: Highlighted row has not occurred!12-03-2022 SARS-CoV-2 mRNA (tozinameran 5y-11y) vaccine 24x7 [facility] [place] NEGATED: Highlighted row has not occurred!05-14-2022 SARS-CoV-2 mRNA (tozinameran 5y-11y) vaccine 24x7 [facility] Payers Date Payer Category Payer Medicaid [id number] 2023 Unknown [facility] [id number] 2023-Present [phone] [place] [address] [id number] [id number] 2020 Commercial Managed C are - POS [id number] 2020 Managed Care HMO (unspecified) [employer] [id number]. [id number] 2020 Private Health Insurance [id number]. [id number] 2020 Private Health Insurance [id number] 1970 Unknown [id number] 2.16840.1.263171.3.579. 2.593 1971 Unknown [id number] 2.16.840.1.921496.3.579. 2.593 1971 Unknown [id number] 2.16.840.1.756089.3.579. 2.593 1971 Unknown [id number] 2.16.840.1.188990.3.579. 2.593 1971 Unknown [id number] 2.16.840.1.756023.3.579. 2.593 1971 Unknown [id number] 2.16.840.1.935977.3.579. 2.593 1971 Unknown [id number] 2.16.840.1.372269.3.579. 2.593 1971 Unknown [id number] 2.16.840.1.287109.3.579. 2.593 1971 Unknown [id number] 2.16.840.1.682710.3.579. 2.175 1971 Unknown [id number] 2.16.840.1.283119.3.579. 2.1259 1971 Unknown [id number] 2.16.840.1.173448.3.579. 2.1259 1971 Unknown [id number] 2.16.840.1.376897.3.579. 2.727 1971 Unknown [id number] 2.16840.1.547109.3.579. 2.72 1971 Unknown [id number] 2.16.840.1.903257.3.579. 2.72 1971 Unknown [id number] 2.16.840.1.263128.3.579. 2.72 1971 Unknown [id number] 2.16.840.1.895699.3.579. 2.727 1971 Unknown [id number] 2.16.840.1.059863.3.579. 2.727 1971 Unknown [id number] 2.16.840.1.763044.3.579. 2.727 1971 Unknown [id number] 2.16.840.1.169684.3.579. 2.72 1971 Unknown [id number] 2.16.840.1.666958.3.579. 2.727 1971 Unknown [id number] 2.16.840.1.177943.3.579. 2.72 1971 Unknown [id number] 2.16.840.1.801643.3.579. 2.727 1971 Unknown [id number] 2.16.840.1.856214.3.579. 2.727 1971 Unknown [id number] 2.16.840.1.972193.3.579. 2.727 1971 Unknown [id number] 2.16.840.1.774642.3.579. 2.727 1971 Unknown [id number] 2.16.840.1.341139.3.579. 2.727 1971 Unknown [id number] 2.16.840.1.512710.3.579. 2.727 1971 Unknown [id number] 2.16.840.1.200765.3.579. 2.727 1971 Unknown [id number] 2.16.840.1.518559.3.579. 2.727 1971 Unknown [id number] 2.16.840.1.631950.3.579. 2.727 1971 Unknown [id number] 2.16.840.1.494953.3.579. 2.727 1959 Self-pay 1959 Unknown [id number] Social History Date Type Detail Facility Start: 05-14-2022 End: 10-02-2022 Tobacco [facility] status [facility] Never [facility] Start: 01-08-2024 End: 01-13-2025 Sex Assigned At Male [facility] Start: 11-13-2022 End: 01-06-2025 Tobacco smoking status Light tobacco smoker (finding) [facility] Start: 1970 Sex assigned at Not on file [facility] Start: 09-16-1980 End: 08-26-2024 Tobacco smoking status NHIS Smokes tobacco daily [facility] Start: 09-16-1980 End: 09-16-2023 History of tobacco use Cigarette Smoker [facility] Start: 08-26-2024 End: 01-13-2025 Cigarettes smoked current (pack per day) - Reported 0.5 [facility] [employer] [facility] Start: 01-08-2024 End: 08-26-2024 Tobacco use and exposure Smokeless tobacco non-user [facility] Start: 08-26-2024 End: 01-13-2025 Alcoholic beverage intake Ex-drinker (finding) [facility] Has the Vidit, or Real Time [employer] threatened to shut off services in your home in past 12Mo No [facility] How often to you hav e a drink containing alcohol? Never [facility] Start: 10-21-2023 Tobacco Comment Smoking down to about 6 sticks a day since last year [facility] Start: 1970 Sex assigned at Male [facility] Start: 04-21-2015 End: 12-04-2018 Sex Male (finding) [facility] Start: 10-21-2023 Gender identity Identifies as male gender (finding) [facility] Start: 10-21-2023 Sexual orientation Heterosexual (finding) [facility] Start: 01-08-2024 Tobacco smoking status NHIS Ex-smoker [facility] Start: 09-16-1980 End: 09-16-2023 History of tobacco use Current smoker [facility] Sexual Orientation [facility] Medical Equipment Procedure Code Equipment Code Equipment Origin al Text Equipment Identifier Dates Unknown Unknown 11/21/22 Non Biological Left Anterior Descending Coronary Artery FDA Start: 11-21-2022 Comment on above: Xience Esther 2.75 m m x 15 mm Coronary stent to mid LAD. FDA Start: 11-21-2022 Comment on above: Xience Esther 3.0 mm x 18 mm coronary stent to proximal LAD. Unknown Unknown 11/21/22 Non Biological Left Anterior Descending Coronary Artery FDA Start: 11-21-2022 Comment on above: Xience Esther 2.75 m m x 15 mm Coronary stent to mid LAD. FDA Start: 11-21-2022 Comment on above: Xience Esther 3.0 mm x 18 mm coronary stent to proximal LAD. Unknown Unknown 11/21/22 Non Biological Left Anterior Descending Coronary Artery FDA Start: 11-21-2022 Comment on above: Xience Esther 2.75 m m x 15 mm Coronary stent to mid LAD. FDA Start: 11-21-2022 Comment on above: Xience Esther 3.0 mm x 18 mm coronary stent to proximal LAD. Unknown Unknown 11/21/22 Non Biological Left Anterior Descending Coronary Artery FDA Start: 11-21-2022 Comment on above: Xience Esther 2.75 m m x 15 mm Coronary stent to mid LAD. FDA Start: 11-21-2022 Comment on above: Xience Esther 3.0 mm x 18 mm coronary stent to proximal LAD. Unknown Unknown 11/21/22 Non Biological Left Anterior Descending Coronary Artery FDA Start: 11-21-2022 Comment on above: Xience Esther 2.75 m m x 15 mm Coronary stent to mid LAD. FDA Start: 11-21-2022 Comment on above: Xience Esther 3.0 mm x 18 mm coronary stent to proximal LAD. Unknown Unknown 11/21/22 Non Biological Left Anterior Descending Coronary Artery FDA Start: 11-21-2022 Comment on above: Xience Esther 2.75 m m x 15 mm Coronary stent to mid LAD. FDA Start: 11-21-2022 Comment on above: Xience Esther 3.0 mm x 18 mm coronary stent to proximal LAD. Unknown Unknown 11/21/22 Non Biological Left Anterior Descending Coronary Artery FDA Start: 11-21-2022 Comment on above: Xience Esther 2.75 m m x 15 mm Coronary stent to mid LAD. FDA Start: 11-21-2022 Comment on above: Xience Esther 3.0 mm x 18 mm coronary stent to proximal LAD. Unknown Unknown 11/21/22 Non Biological Left Anterior Descending Coronary Artery FDA Start: 11-21-2022 Comment on above: Xience Esther 2.75 m m x 15 mm Coronary stent to mid LAD. FDA Start: 11-21-2022 Comment on above: Xience Esther 3.0 mm x 18 mm coronary stent to proximal LAD. Unknown Unknown 11/21/22 Non Biological Left Anterior Descending Coronary Artery FDA Start: 11-21-2022 Comment on above: Xience Esther 2.75 m m x 15 mm Coronary stent to mid LAD. FDA Start: 11-21-2022 Comment on above: Xience Esther 3.0 mm x 18 mm coronary stent to proximal LAD. Unknown Unknown 11/21/22 Non Biological Left Anterior Descending Coronary Artery FDA Start: 11-21-2022 Comment on above: Xience Esther 2.75 m m x 15 mm Coronary stent to mid LAD. FDA Start: 11-21-2022 Comment on above: Xience Esther 3.0 mm x 18 mm coronary stent to proximal LAD. Unknown Unknown 11/21/22 Non Biological Left Anterior Descending Coronary Artery FDA Start: 11-21-2022 Comment on above: Xience Esther 2.75 m m x 15 mm Coronary stent to mid LAD. FDA Start: 11-21-2022 Comment on above: Xience Esther 3.0 mm x 18 mm coronary stent to proximal LAD. Unknown Unknown 11/21/22 Non Biological Left Anterior Descending Coronary Artery FDA Start: 11-21-2022 Comment on above: Xience Esther 2.75 m m x 15 mm Coronary stent to mid LAD. FDA Start: 11-21-2022 Comment on above: Xience Esther 3.0 mm x 18 mm coronary stent to proximal LAD. Unknown Unknown 11/21/22 Non Biological Left Anterior Descending Coronary Artery FDA Start: 11-21-2022 Comment on above: Xience Esther 2.75 m m x 15 mm Coronary stent to mid LAD. FDA Start: 11-21-2022 Comment on above: Xience Esther 3.0 mm x 18 mm coronary stent to proximal LAD. Unknown Unknown 11/21/22 Non Biological Left Anterior Descending Coronary Artery FDA Start: 11-21-2022 Comment on above: Xience Esther 2.75 m m x 15 mm Coronary stent to mid LAD. FDA Start: 11-21-2022 Comment on above: Xience Esther 3.0 mm x 18 mm coronary stent to proximal LAD. Goals Date Patient Goal Desired Activity /State Personal health goal Comment on above: Formatting of this n ote might be different from the original. Evaluation of progress towards goal: plan is to return to correction upon heart conversion to RSR Functional Status Date Assessment Result Facility 09-23-2024 Functional Status N/A [facility] [place] 09-02-2024 Functional Status N/A [facility] 2023 Functional Status N/A [facility] [place] 12-11-2022 Functional Status N/A [facility] 12-03-2022 Functional Status N/A [facility] 11-21-2022 Functional Status No [facility] 10-02-2022 Functional Status N/A [facility] 08-07-2022 Functional Status N/A [facility] 06-13-2022 Functional Status N/A [facility] 05-14-2022 Functional Status N/A [facility] Clinical Notes 05-14-2022 to 03-30-2025 Telephone Encounter - Bre Lauren RN - 03/30/2025 12:25 AM EDTTelephone Encounter - Bre Lauren RN - 03/30/2025 12:25 AM EDTArthur Chappell MD - 01/13/2025 2:45 PM EDTPatient Instructions Note Date & Type Note Facility 03-30-2025 Miscellaneous Notes Ov-01/13/25 Bmp and mg-11/20/24 documented in this encounter [facility] 03-30-2025 Telephone encounter Note Ov-01/13/25 Bmp and mg-11/20/24 [facility] 03-26-2025 Note Patient Education Orthopedics Shoulder Pain Many things can cause shoulder pain, including: ??? An injury. ??? Moving the shoulder in the same way again and again (overuse). ??? Joint pain (arthritis). Pain can come from: ??? Swelling and irritation (inflammation) of any part of the shoulder. ??? An injury to: ? The shoulder joint. ? Tissues that connect muscle to bone (tendons). ? Tissues that connect bones to each other (ligaments). ? Bones. Follow these instructions at home: Watch for changes in your symptoms. Let your doctor know about them. Follow these instructions to help with your pain. If you have a sling that can be taken off: ??? Wear the sling as told by your doctor. Take it off only as told by your doctor. ??? Check the skin around the sling every day. Tell your doctor if you see problems. ??? Loosen the sling if your fingers: ? Tingle. ? Become numb. ? Become cold. ??? Keep the sling clean. ??? If the sling is not waterproof: ? Do not let it get wet. ? Take the sling off when you shower or bathe. Managing pain, stiffness, and swelling ??? If told, put ice on the painful area. ? Put ice in a plastic bag. ? Place a towel between your skin and the bag. ? Leave the ice on for 20 minutes, 2?3 times a day. Stop putting ice on if it does not help with the pain. ? If your skin turns bright red, take off the ice right away to prevent skin damage. The risk of damage is higher if you cannot feel pain, heat, or cold. ??? Squeeze a soft ball or a foam pad as much as possible. This prevents swelling in the shoulder. It also helps to strengthen the arm. General instructions ??? Take zswc-[id number]-[id number] and prescription medicines only as told by your doctor. ??? Keep all follow-up visits. This will help you avoid any type of permanent shoulder problems. Contact a doctor if: ??? Your pain gets worse. ??? Medicine does not help your pain. ??? You have new pain in your arm, hand, or fingers. ??? You loosen your sling and your arm, hand, or fingers: ? Tingle. ? Are numb. ? Are swollen. Get help right away if: ??? Your arm, hand, or fingers turn white or blue. This information is not intended to replace advice given to you by your health care provider. Make sure you discuss any questions you have with your health care provider. Document Revised: 04/05/2023 Document Reviewed: 04/05/2023 [employer] Patient Education ? 2023 [employer] 01-13-2025 History of Present illness Narrative Chongestefania Horta Date of visit: 01/13/2025 Date of : 1970 Age: 54 y.o. Patient Active Problem List Diagnosis Anxiety Asthma COPD (chronic obstructive pulmonary disease) ([facility] Hyperlipemia, mixed Insomnia due to medical condition Paroxysmal atrial fibrillation ([facility]) Coronary artery disease involving [place] coronary artery of [place] heart without angina pectoris Subarachnoid hematoma with loss of consciousness, initial encounter ([facility]) Atrial fibrillation with RVR ([facility]) Transaminitis Right upper quadrant abdominal pain Chest pain Chronic cough Fatigue Lower extremity numbness Panlobular emphysema ([facility]) Allergies Allergen Reactions Cardizem [Diltiazem Hcl] Dizziness and Hypotension Bactrim [Sulfamethoxazole-Trimethoprim] Buspirone Nausea Gabapentin Nausea Sulfamethoxazole Other Reaction(s): Unknown Reaction Trimethoprim Other Reaction(s): Unknown Reaction Varenicline Palpitations and Nausea Venlafaxine Rash Current Outpatient Medications Medication Sig Dispense Refill acetaminophen (TYLENOL EXTRA STRENGTH) 500 mg tablet Take 1 tablet (500 mg total) by mouth every 6 (six) hours as needed for pain. 30 tablet 0 alendronate (FOSAMAX) 70 mg tablet Take 1 tablet (70 mg total) by mouth every 7 days. amitriptyline (ELAVIL) 25 mg tablet Take 1 tablet (25 mg total) by mouth in the morning. apixaban (ELIQUIS) 5 mg tablet Take 1 tablet (5 mg total) by mouth in the morning and 1 tablet (5 mg total) before bedtime. 60 tablet 0 atorvastatin (LIPITOR) 80 mg tablet Take 1 tablet (80 mg total) by mouth in the morning. 90 tablet 3 clopidogreL (PLAVIX) 75 mg tablet Take 1 tablet (75 mg total) by mouth in the morning. 90 tablet 2 empagliflozin (JARDIANCE) 10 mg tablet tablet Take 1 tablet (10 mg total) by mouth in the morning. 30 tablet 11 sacubitriL-valsartan (ENTRESTO) 24-26 mg tablet Take 1 tablet by mouth in the morning and 1 tablet before bedtime. 60 tablet 11 spironolactone (ALDACTONE) 25 mg tablet Take 1 tablet (25 mg total) by mouth in the morning. 30 tablet 11 tamsulosin (FLOMAX) 0.4 mg capsule Take 1 capsule (0.4 mg total) by mouth in the morning. metoprolol succinate XL (TOPROL XL) 100 mg 24 hr tablet Take 1 tablet (100 mg total) by mouth in the morning. 90 tablet 3 No current facility-administered medications for this visit. Chief Complaint Patient presents with Follow-up S/P Ablation @ TT Atrial Fibrillation History of Present Illness 54 yo M PMHx Coronary artery disease status post PCI to proximal mid LAD 12/06. Plavix 75 mg once daily. Hypertension. COPD. History of methamphetamine use. History of substance abuse. Chronic systolic congestive heart failure/ ischemic cardiomyopathy with ejection fraction of 40%. Entresto 24/26 mg b.i.d., Aldactone 25 mg once daily, metoprolol XL 50 mg once daily, Jardiance 10 mg once daily. Hyperlipidemia. Lipitor 80 mg once daily. Paroxysmal atrial fibrillation and typical atrial flutter. Amiodarone 200 mg once daily, Eliquis 5 mg b.i.d.Status post PVI using pulse field ablation and CTI ablation using radiofrequency energy. 12/08. Echo 11/09. EF 40-45%. No significant valvulopathy. Coronary angiogram 04/08. Patent LAD stents. Event monitor 05/09. Sinus rhythm. Patient states that following ablation he might have had 1-2 episodes in 1st few weeks after ablation procedure but these episodes lasted only for few minutes. Patient is still taking amiodarone. Compliant with heart failure regimen. No heart failure symptoms. EKG performed showed sinus rhythm. Sinus rate is elevated in 90s. Past Medical History: Diagnosis Date A-fib ([facility]) BPH (benign prostatic hyperplasia) CHF (congestive heart failure) ([facility]) COPD (chronic obstructive pulmonary disease) ([facility]) Hernia, inguinal HTN (hypertension) Insomnia Kidney injury Narcolepsy Pancreatitis S/P primary angioplasty with coronary stent 02/14/2023 Seizure ([facility]) Smoker No data recorded No data recorded No data recorded Past Surgical History: Procedure Laterality Date Afib/Typical Ablation - CARTO, ICE, PFA N/A 11/25/2024 Performed by Arthur Chappell MD at [facility] () COLONOSCOPY EP Invasive N/A 11/25/2024 Performed by Arthur Chappell MD at [facility] () FACIAL RECONSTRUCTION SURGERY FACIAL RECONSTRUCTION SURGERY VASECTOMY Family History Problem Relation Age of Onset COPD Mother Heart disease Mother Diabetes Mother Diabetes Father Cancer Father Social History Socioeconomic History Marital status: Spouse name: Not on file Number of children: Not on file Years of education: Not on file Highest education level: Not on file Occupational History Not on file Tobacco Use Smoking status: Every Day Current packs/day: 0.00 Average packs/day: 0.5 packs/day for 43.0 years (21.5 ttl pk-yrs) Types: Cigarettes Start date: 09/16/1980 Last attempt to quit: 09/2023 Years since quittin.3 Smokeless tobacco: Never Tobacco comments: Smoking down to about 6 sticks a day since last year Vaping Use Vaping status: Never Used Substance and Sexual Activity Alcohol use: Not Currently Drug use: Not Currently Frequency: 3.0 times per week Types: Methamphetamines, Marijuana, Cocaine, LSD Comment: last used mid september Sexual activity: Defer Partners: Female Other Topics Concern Caffeine Use No Social History Narrative Not on file Social Drivers of Health Financial Resource Strain: Low Risk (12/01/2023) Overall Financial Resource Strain (CARDIA) Difficulty of Paying Living Expenses: Not hard at all Food Insecurity: No Food Insecurity (01/13/2025) Hunger Screening Food Insecurity - Worry: Never True Food Insecurity - Inability: Never True Transportation Needs: No Transportation Needs (01/08/2024) PRAPARE - Transportation Lack of Transportation (Medical): No Lack of Transportation (Non-Medical): No Physical Activity: Not on file Stress: Not on file Social Connections: Not on file Interpersonal Safety: Unknown (11/11/2024) Re[facility] from [facility] Humiliation, Afraid, Rape, and Kick questionnaire Fear of Current or Ex-Partner: No Emotionally Abused: Not on file Physically Abused: Not on file Sexually Abused: Not on file Housing Instability: Low Risk (01/08/2024) Housing Instability Housing Instability: No Review of Systems Review of Systems Constitutional: Negative for chills, fever and malaise/fatigue. HENT: Negative for hearing loss, hoarse voice and nosebleeds. Eyes: Negative for blurred vision, double vision and redness. Respiratory: Negative for shortness of breath and sleep disturbances due to breathing. Endocrine: Negative for cold intolerance and heat intolerance. Hematologic/Lymphatic: Negative for bleeding problem. Does not bruise/bleed easily. Skin: Negative for color change, flushing, itching and nail changes. Musculoskeletal: Negative for falls, joint pain, joint swelling and myalgias. Gastrointestinal: Negative for heartburn, hematochezia and melena. Genitourinary: Negative for dysuria, frequency and hematuria. Neurological: Negative for dizziness, focal weakness, light-headedness, loss of balance and weakness. Psychiatric/Behavioral: Negative for altered mental status and memory loss. CARDIOVASCULAR: Please review HPI. Physical Examination General appearance: Alert, oriented and cooperative. In no acute distress. Skin: Warm and dry to touch. Head: Normocephalic, without obvious abnormality, atraumatic. Ears, Nose, Mouth, Throat: Throat clear without erythema or exudate. Dentition intact. Eyes: Conjunctivae unremarkable, EOM intact. Neck: No JVD, No carotid bruit. Neck supple, trachea midline. Respiratory: Clear to auscultation bilaterally, no use of accessory muscles. Cardiovascular: RRR with normal S1 and S2 with no murmurs. Gastrointestinal: Soft, non-tender. Bowel sounds normal. Musculoskeletal: No peripheral edema. Neurologic: Oriented to time, person and place, affect appropriate. No focal/major motor defects noted. Psychiatric: Appropriate mood, memory and judgement. VITAL SIGNS: BP 144/88 Pulse 102 Ht 154.9 cm (5' 1 ) Wt 70.8 kg (156 lb) BMI 29.48 kg/m Orders Placed or Reconciled This Encounter Medications metoprolol succinate XL (TOPROL XL) 100 mg 24 hr tablet Sig: Take 1 tablet (100 mg total) by mouth in the morning. Dispense: 90 tablet Refill: 3 Medications Discontinued During This Encounter Medication Reason amiodarone (PACERONE) 200 mg tablet metoprolol succinate XL (TOPROL XL) 50 mg 24 hr tablet IMPRESSIONS/PLAN 1. Paroxysmal atrial fibrillation (CMS-HCC) - POCT EKG - Echo complete W/O contrast; Future 1. Paroxysmal atrial fibrillation and typical atrial flutter: - Status post PVI using pulse field ablation and CTI ablation using RF energy. 12/08 - Might have had couple of episodes of atrial fibrillation post ablation which lasted only for few minutes. But maintaining sinus rhythm for the most part. - EKGs showed sinus rhythm with heart rate in 90s. - Stop amiodarone. - Increase metoprolol to 100 mg once daily. - Continue Eliquis 5 mg b.I.d.. 2. Coronary artery disease status post LAD PCI: - recent coronary angiogram showed patent stents. Continue with Plavix and statin therapy. 3. chronic systolic congestive heart failure/ischemic cardiomyopathy with ejection fraction of 40-45%: No signs symptoms of decompensated heart failure. Euvolemic on examination. Will continue with current medical therapy which is being optimized by general cardiology service. Repeat echocardiogram to see if LV function is improving in sinus rhythm in on medical therapy. 4. Hypertension: Blood pressure is mildly elevated. Metoprolol dose increased to 100 mg once daily. 5. Hyperlipidemia: Continue with statin therapy. TODAYS ORDERS Orders Placed This Encounter Procedures POCT EKG Echo complete W/O contrast FOLLOW UP Return in about 6 months (around 07/15/2025). PCP: MAXIME HULL MD Referring Physician: Maxime Hull MD [address] [place] [address] documented in this encounter [facility] 01-13-2025 Instructions Anabel Miranda MA - 01/13/2025 2:45 PM EDT Are You Ready To Kick The Habit? Free Tobacco Cessation Resources [facility] Services [facility] provide all employees with free tobacco cessation services that include: Counseling to understand nicotine addiction Education about medications that can help you successfully quit Assistance with developing a plan to quit Call to set up an individual appointment or find out when group classes will be held: [facility]: [phone] [facility]: [phone] [facility]: [phone] [facility]: [phone] Quit Smoking Action Plan and Resources [facility] offers an eight-week, online smoking cessation plan to all [facility] employees, regardless of whether [place] is your medical insurance provider. Go to [email or web address] ess and click the Health Risk Assessment and Resources link to get started. In the Ymiah3Snkknn menu, click Action Plans instead of Health Risk Assessment to access the Quit Smoking Action Plan. Additional smoking cessation resources are also available to all [facility] employees on the Yeszl7Fptxbq web page at www.[employer]/quits dee. [place] Tobacco Cessation Program If [place] is your medical insurance provider, there are more free resources available to you, including: No copays or deductibles on local tobacco cessation counseling services to help you quit Prescription assistance for tobacco cessation medications to help you quit For details about the tobacco cessation program available to [place] members, go to www.[employer] (Search: Tobacco Cessation Program). [place] Tobacco Quit Line 8-776-ESIB-NOW ( ) is a toll-free, telephonic service that helps [place] residents quit smoking and using tobacco. It is staffed by experts who tailor a quit plan for you and provide you with advice. [place] Tobacco Quit Line 2-161-AMOV-NOW ( ) is a toll-free, telephonic service that helps [place] residents quit smoking and using tobacco. It is staffed by experts who tailor a quit plan for you and provide you with advice. Two weeks of nicotine replacement therapy may be provided at no charge, if needed. Additional Resources These national organizations also offer free information and resources to help you quit tobacco: Scottish Cancer Society--www.cancer.org/healthy/s tayawayfromtobacco Scottish Heart Association--www.heart.org (Search: Quit Smoking) Centers for Disease Control and Prevention--www.cdc.gov/tobacco Scottish Lung Association--www.lungusa.org documented in this encounter [facility] 01-12-2025 Miscellaneous Notes ATTEMPTED TO CALL PT TO REMIND OF APPT SCHEDUELD FOR 01/13/25, NO VOICE MAIL SET UP OR VOICE MAIL FULL. documented [facility] this encounter [facility]25 Telephone encounter Note ATTEMPTED TO CALL PT TO REMIND OF APPT SCHEDUELD FOR 01/13/25, NO VOICE MAIL SET UP OR VOICE MAIL FULL. [facility] [employer] [facility] 01-06-2025 Hospital Discharge instructions Follow Up Care 01/06/2025 09:33:25 With:Fabian LINDQUIST, WESLEY Rooney, U[facility] Address: [address], [place] [phone] When: Unknown [facility] 01-06-2025 Note Patient Education Pulmonary Medicine Steps to Quit Smoking Smoking tobacco is the leading cause of preventable . It can affect almost every organ in the body. Smoking puts you and those around you at risk for developing many serious chronic diseases. Quitting smoking can be very challenging. Do not get discouraged if you are not successful the first time. Some people need to make many attempts to quit before they achieve long-term success. Do your best to stick to your quit plan, and talk with your health care provider if you have any questions or concerns. How do I get ready to quit? When you decide to quit smoking, create a plan to help you succeed. Before you quit: ??? Pick a date to quit. Set a date within the next 2 weeks to give you time to prepare. ??? Write down the reasons why you are quitting. Keep this list in places where you will see it often. ??? Tell your family, friends, and co-workers that you are quitting. Support from people you are close to can make quitting easier. ??? Talk with your health care provider about your options for quitting smoking. ??? Find out what treatment options are covered by your health insurance. ??? Identify people, places, things, and activities that make you want to smoke (triggers). Avoid them. What first steps can I take to quit smoking? Throw away all cigarettes at home, at work, and in your car. ??? Throw away smoking accessories, such as ashtrays and lighters. ??? Clean your car. Make sure to empty the ashtray. ??? Clean your home, including curtains and carpets. What strategies can I use to quit smoking? Talk with your health care provider about combining strategies, such as taking medicines while you are also receiving in-person counseling. Using these two strategies together makes you more likely to succeed in quitting than if you used either strategy on its own. If you are or , talk with your health care provider about finding counseling or other support strategies to quit smoking. Do not take medicine to help you quit smoking unless your health care provider tells you to. Quit right away ??? Quit smoking completely, instead of gradually reducing how much you smoke over a period of time. Stopping smoking right away may be more successful than gradually quitting. ??? Attend in-person counseling to help you build problem-solving skills. You are more likely to succeed in quitting if you attend counseling sessions regularly. Even short sessions of 10 minutes can be effective. Take medicine You may take medicines to help you quit smoking. Some medicines require a prescription. You can also purchase hkug-jfg-wptcfzt medicines. Medicines may have nicotine in them to replace the nicotine in cigarettes. Medicines may: ??? Help to stop cravings. ??? Help to relieve withdrawal symptoms. Your health care provider may recommend: ??? Nicotine patches, gum, or lozenges. ??? Nicotine inhalers or sprays. ??? Non-nicotine medicine that you take by mouth. Find resources Find resources and support systems that can help you quit smoking and remain smoke-free after you quit. These resources are most helpful when you use them often. They include: ??? Online chats with a counselor. ??? Telephone quitlines. ??? Printed self-help materials. ??? Support groups or group counseling. ??? Text messaging programs. ??? Mobile phone apps or applications. Use apps that can help you stick to your quit plan by providing reminders, tips, and encouragement. Examples of free services include Quit Guide from the CDC and smokefree.gov What can I do to make it easier to quit? Reach out to your family and friends for support and encouragement. Call telephone quitlines, such as 8-800-SOVF-NOW, reach out to support groups, or work with a counselor for support. ??? Ask people who smoke to avoid smoking around you. ??? Avoid places that trigger you to smoke, such as bars, parties, or smoke-break areas at work. ??? Spend time with people who do not smoke. ??? Lessen the stress in your life. Stress can be a smoking trigger for some people. To lessen stress, try: ? Exercising regularly. ? Doing deep-breathing exercises. ? Doing yoga. ? Meditating. What benefits will I see if I quit smoking? Over time, you should start to see positive results, such as: ??? Improved sense of smell and taste. ??? Decreased coughing and sore throat. ??? Slower heart rate. ??? Lower blood pressure. ??? Clearer and healthier skin. ??? The ability to breathe more easily. ??? Fewer sick days. Summary ??? Quitting smoking can be very challenging. Do not get discouraged if you are not successful the first time. Some people need to make many attempts to quit before they achieve long-term success. ??? When you decide to quit smoking, create a plan to help you succeed. ??? Quit smoking right away, not s (more content not included)... [facility] 11-23-2024 Note Patient Education Nutrition BMI for Adults Body mass index (BMI) is a number found using a person's weight and height. BMI can help tell how much of a person's weight is made up of fat. BMI does not measure body fat directly. It is used instead of tests that directly measure body fat, which can be difficult and expensive. What are BMI measurements used for? BMI is useful to: ??? Find out if your weight puts you at higher risk for medical problems. ??? Help recommend changes, such as in diet and exercise. This can help you reach a healthy weight. BMI screening can be done again to see if these changes are working. How is BMI calculated? Your height and weight are measured. The BMI is found from those numbers. This can be done with U.S. or metric measurements. Note that charts and online BMI calculators are available to help you find your BMI quickly and easily without doing these calculations. To calculate your BMI in U.S. measurements: 1. Measure your weight in pounds (lb). 2. Multiply the number of pounds by 703. ??? So, for an adult who weighs 150 lb, multiply that number by 703: 150 x 703, which equals 105,450. 3. Measure your height in inches. Then multiply that number by itself to get a measurement called inches squared. ??? So, for an adult who is 70 inches tall, the inches squared measurement is 70 inches x 70 inches, which equals 4,900 inches squared. 4. Divide the total from step 2 (number of lb x 703) by the total from step 3 (inches squared): 105,450 ? 4,900 = 21.5. This is your BMI. To calculate your BMI in metric measurements: 1. Measure your weight in kilograms (kg). ??? For this example, the weight is 70 kg. 2. Measure your height in meters (m). Then multiply that number by itself to get a measurement called meters squared. ??? So, for an adult who is 1.75 m tall, the meters squared measurement is 1.75 m x 1.75 m, which equals 3.1 meters squared. 3. Divide the number of kilograms (your weight) by the meters squared number. In this example: 70 ? 3.1 = 22.6. This is your BMI. What do the results mean? BMI charts are used to see if you are underweight, normal weight, overweight, or obese. The following guidelines will be used: ??? Underweight: BMI less than 18.5. ??? Normal weight: BMI between 18.5 and 24.9. ??? Overweight: BMI between 25 and 29.9. ??? Obese: BMI of 30 or above. BMI is a tool and cannot diagnose a condition. Talk with your health care provider about what your BMI means for you. Keep these notes in mind: ??? Weight includes fat and muscle. Someone with a muscular build, such as an athlete, may have a BMI that is higher than 24.9. In cases like these, BMI is not a correct measure of body fat. ??? If you have a BMI of 25 or higher, your provider may need to do more testing to find out if excess body fat is the cause. ??? BMI is measured the same way for males and females. Females usually have more body fat than males of the same height and weight. Where to find more information For more information about BMI, including tools to quickly find your BMI, go to: ??? Centers for Disease Control and Prevention: cdc.gov ??? Scottish Heart Association: heart.org ??? National Heart, Lung, and Blood [place]: nhlbi.nih.gov This information is not intended to replace advice given to you by your health care provider. Make sure you discuss any questions you have with your health care provider. Document Revised: 05/23/2023 Document Reviewed: 05/16/2023 [employer] Patient Education ? 2023 [employer]. [facility] 11-11-2024 Note Subjective Patient ID: Regis Horta is a 54 y.o. male who presents for Post-op (Patient here for post-op eval, s/p robotic right inguinal hernia repair with mesh. ). HPI The patient is tolerating to regular diet, normal bowel movement, without abdominal pain. Review of Systems Constitutional: Negative. HENT: Negative. Eyes: Negative. Respiratory: Positive for cough and shortness of breath. Cardiovascular: Negative. Gastrointestinal: Positive for abdominal pain. Endocrine: Negative. Genitourinary: Positive for dysuria. Musculoskeletal: Positive for arthralgias. Skin: Positive for wound. Allergic/Immunologic: Negative. Neurological: Negative. Hematological: Bruises/bleeds easily. Objective Visit Vitals BP 136/74 (BP Location: Left arm, Patient Position: Sitting) Pulse 80 Temp 36.5 ???C (97.7 ???F) Resp 16 Physical Exam HENT: Head: Atraumatic. Cardiovascular: Rate and Rhythm: Normal rate. Pulmonary: Effort: Pulmonary effort is normal. Abdominal: General: Abdomen is flat. Palpations: Abdomen is soft. Comments: Incisions are dry, clean, intact. Without sign of hernia recurrence. Musculoskeletal: Cervical back: Neck supple. Neurological: Mental Status: He is alert. Assessment/Plan Status post robotic right inguinal hernia repair with mesh Resume normal activity No diagnosis found. No orders of the defined types were placed in this encounter. No results found for this or any previous visit (from the past 36 hour(s)). No follow-ups on file. [facility] 11-02-2024 Note Patient: Regis Horta Procedure Summary Date: 11/02/24 Room / Location: [facility] OPERATING ROOM 13 / [facility] Operating Room Anesthesia Start: 1327 Anesthesia Stop: 1545 Procedure: ROBOT-ASSISTED RIGHT INGUINAL HERNIA REPAIR WITH MESH (Right) Diagnosis: Right inguinal hernia (Right inguinal hernia [K40.90]) Surgeons: Nunu Park MD Responsible Provider: Marcio Rosario MD Anesthesia Type: general ASA Status: 3 Anesthesia Type: general Vitals Value Taken Time BP 142/86 11/02/24 1544 Temp 37.2 ???C (99 ???F) 11/02/24 1544 Pulse 80 11/02/24 1544 Resp 16 11/02/24 1544 SpO2 95 % 11/02/24 1544 Anesthesia Post Evaluation Patient location during evaluation: PACU Patient participation: complete - patient participated Level of consciousness: awake and alert Pain score: 4 Pain management: adequate Multimodal analgesia pain management approach Airway patency: patent Two or more strategies used to mitigate risk of obstructive sleep apnea Cardiovascular status: hemodynamically stable Respiratory status: acceptable, room air, spontaneous ventilation and nonlabored ventilation Hydration status: euvolemic Patient is hemodynamically stable and is able to be discharged from PACU per anesthesia protocol. No notable events documented. [facility] 11-02-2024 Note Patient: Regis Horta Procedure Summary Date: 11/02/24 Room / Location: [facility] OPERATING ROOM 13 / [facility] Operating Room Anesthesia Start: 7 Anesthesia Stop: Procedure: ROBOT-ASSISTED RIGHT INGUINAL HERNIA REPAIR WITH MESH (Right) Diagnosis: Right inguinal hernia (Right inguinal hernia [K40.90]) Surgeons: Nunu Park MD Responsible Provider: Marcio Rosario MD Anesthesia Type: general ASA Status: 3 Anesthesia Post Transport Note Transport to: PACU O2 Route: nasal cannula Oxygen Flow (L/min): 3 Patient Monitor: direct observation Transport: uneventful Patient condition is: stable [facility] 11-02-2024 Note Patient: Regis Horta Procedure Information Anesthesia Start Date/Time: 11/02/24 1327 Procedure: ROBOT-ASSISTED RIGHT (POSSIBLE BILATERAL ) INGUINAL HERNIA REPAIR WITH MESH (Right) Location: [facility] OPERATING ROOM 13 / [facility] Operating Room Surgeons: Nunu Park MD Relevant Problems Cardio (+) Paroxysmal atrial fibrillation (CMS/HCC) (+) Presence of stent in LAD coronary artery Clinical information reviewed: Tobacco Allergies Meds Problems Med Hx Surg Hx Fam Hx Soc Hx Physical Exam Airway Mallampati: II TM distance: >3 FB Neck ROM: full Cardiovascular Rhythm: regular Rate: normal Comments: NSR at this time, H/O a fib Dental (+) edentulous Pulmonary (+) decreased breath sounds, wheezes Abdominal Anesthesia Plan ASA 3 general intravenous induction Anesthetic plan and risks discussed with patient. Use of blood products discussed with patient who. Plan discussed with attending and CAA. Additional Equipment Requests [facility] 11-02-2024 Note Airway Date/Time: 11/02/2024 1:39 PM Urgency: elective Airway not difficult General Information and Staff Patient location during procedure: OR Anesthesiologist: Marcio Rosario MD Resident/HOME HEALTH ATTENDANT/CAA: JIM Price Performed: resident/HOME HEALTH ATTENDANT/CAA Indications and Patient Condition Indications for airway management: anesthesia Spontaneous Ventilation: absent Sedation level: deep Preoxygenated: yes Mask difficulty assessment: 2 - vent by mask + OA or adjuvant +/- NMBA Final Airway Details Final airway type: endotracheal airway Successful airway: ETT Cuffed: yes Successful intubation technique: video laryngoscopy Endotracheal tube insertion site: oral Blade: Bustos Blade size: #3 ETT size (mm): 8.0 Cormack-Lehane Classification: grade I - full view of glottis Placement verified by: chest auscultation Measured from: lips ETT to lips (cm): 22 Number of attempts at approach: 1 Additional Comments Eyes taped after induction, before airway management [facility] 10-20-2024 History of Present illness Narrative Chongshaijose Horta Date of visit: 10/20/2024 Date of : 1970 Age: 54 y.o. Patient Active Problem List Diagnosis Anxiety Asthma COPD (chronic obstructive pulmonary disease) ([facility] Hyperlipemia, mixed Insomnia due to medical condition Paroxysmal atrial fibrillation ([facility]) Coronary artery disease involving [place] coronary artery of [place] heart without angina pectoris Subarachnoid hematoma with loss of consciousness, initial encounter ([facility]) Atrial fibrillation with RVR ([facility]) Transaminitis Right upper quadrant abdominal pain Allergies Allergen Reactions Cardizem [Diltiazem Hcl] Dizziness and Hypotension Bactrim [Sulfamethoxazole-Trimethoprim] Buspirone Nausea Gabapentin Nausea Sulfamethoxazole Other Reaction(s): Unknown Reaction Trimethoprim Other Reaction(s): Unknown Reaction Varenicline Palpitations and Nausea Venlafaxine Rash Current Outpatient Medications Medication Sig Dispense Refill acetaminophen (TYLENOL EXTRA STRENGTH) 500 mg tablet Take 1 tablet (500 mg total) by mouth every 6 (six) hours as needed for pain. 30 tablet 0 alendronate (FOSAMAX) 70 mg tablet Take 1 tablet (70 mg total) by mouth every 7 days. amiodarone (PACERONE) 200 mg tablet Take 1 tablet (200 mg total) by mouth in the morning. 90 tablet 2 amitriptyline (ELAVIL) 25 mg tablet Take 1 tablet (25 mg total) by mouth in the morning. apixaban (ELIQUIS) 5 mg tablet Take 1 tablet (5 mg total) by mouth in the morning and 1 tablet (5 mg total) before bedtime. 60 tablet 0 atorvastatin (LIPITOR) 80 mg tablet Take 1 tablet (80 mg total) by mouth in the morning. 90 tablet 3 clopidogreL (PLAVIX) 75 mg tablet Take 1 tablet (75 mg total) by mouth in the morning. 90 tablet 2 empagliflozin (JARDIANCE) 10 mg tablet tablet Take 1 tablet (10 mg total) by mouth in the morning. 30 tablet 11 metoprolol succinate XL (TOPROL XL) 50 mg 24 hr tablet Take 1 tablet (50 mg total) by mouth in the morning. 30 tablet 0 sacubitriL-valsartan (ENTRESTO) 24-26 mg tablet Take 1 tablet by mouth in the morning and 1 tablet before bedtime. 60 tablet 11 spironolactone (ALDACTONE) 25 mg tablet Take 1 tablet (25 mg total) by mouth in the morning. 30 tablet 11 tamsulosin (FLOMAX) 0.4 mg capsule Take 1 capsule (0.4 mg total) by mouth in the morning. No current facility-administered medications for this visit. Chief Complaint Patient presents with Pre-op Exam PREOP CLEARANCE DR PARK HERNIS Atrial Fibrillation Coronary Artery Disease History of Present Illness 54-year-old gentleman CAD PCI of the proximal to mid LAD November 2022, hypertension, COPD, history of methamphetamine use and substance abuse, chronic systolic heart failure, EF 40% and paroxysmal AFib who we have been asked see for preoperative cardiac clearance He was seen by my partner of the pharmacy customer care specialist, Dr. chappell it was reported that amiodarone and improved her decrease the frequency of the paroxysmal AFib in flutter Is for an AFib ablation Past Medical History: Diagnosis Date A-fib ([facility]) BPH (benign prostatic hyperplasia) CHF (congestive heart failure) ([facility] COPD (chronic obstructive pulmonary disease) ([facility] Hernia, inguinal HTN (hypertension) Insomnia Kidney injury Narcolepsy Pancreatitis S/P primary angioplasty with coronary stent 02/14/2023 Seizure ([facility]) Smoker No data recorded No data recorded No data recorded Past Surgical History: Procedure Laterality Date COLONOSCOPY FACIAL RECONSTRUCTION SURGERY FACIAL RECONSTRUCTION SURGERY VASECTOMY Family History Problem Relation Age of Onset COPD Mother Heart disease Mother Diabetes Mother Diabetes Father Cancer Father Social History Socioeconomic History Marital status: Spouse name: Not on file Number of children: Not on file Years of education: Not on file Highest education level: Not on file Occupational History Not on file Tobacco Use Smoking status: Every Day Current packs/day: 0.00 Average packs/day: 0.5 packs/day for 43.0 years (21.5 ttl pk-yrs) Types: Cigarettes Start date: 09/16/1980 Last attempt to quit: 09/2023 Years since quittin.0 Smokeless tobacco: Never Tobacco comments: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 carbamazepine (ineffective), lamotrigine, duloxetine, and gabapentin in the past, all of which were ineffective or not tolerated. He is currently taking amitriptyline, however, due to the increased risk of ECG changes and cardiac arrhythmias while taking this medication, I believe it is likely safest to discontinue use. The patient is currently receiving treatment for paroxymal atrial fibrillation. PLAN: - I advised the patient to stop amitriptyline - I would avoid tricyclic antidepressants due to his history of A. Fib - I would avoid pregabalin and opioid therapy due to his history of substance abuse - Restart alendronate 70 mg by mouth once a week x 8 weeks. I counseled the patient on the intended purpose of this medication and possible adverse effects. He verbalizes understanding and wishes to proceed - If symptoms persist in the future, I believe the patient would be best managed by a pain medicine specialist. His symptoms have been somewhat refractory, and medical comorbidities are placing limitations on which medications we can safely utilize Narcolepsy The patient previously took methylphenidate. This seemed to improve his ability to focus and improve his daytime fatigue when taken, however, it was stopped while he was in correction. We did ask that he follow up with sleep medicine, but the patient and his confirm they have not been helpful for him in the past. PLAN: - I strongly recommended follow up with either sleep medicine or Dr. Hannah Corbett for management. The patient and his politely decline this currently - Could consider restarting very low-dose methylphenidate in the future Diagnosis and treatment options discussed in detail. All questions answered. The patient verbalizes understanding and is agreeable to the plan. Discussion in layman's terms. Follow up in the office within 2 months; sooner if needed for new or worsening symptoms. Wendy Zhong NP [facility] Advanced Neurology documented in this encounter [facility] 09-24-2024 Instructions Wendy Zhong NP - 09/24/2024 1:00 PM EST - MRI of the brain - Start alendronate 70 mg by mouth once a week - Referral to psychiatry ([facility]) for management of anxiety and depression documented in this encounter [facility] 09-04-2024 Note Urology Office/Clini c Note Chief Complaint referral elevated PSA HPI Staff 54yr old male re-referred for elevated PSA. Pt states he has had a bladder for about 1yr. Says it has progressively gotten worse since then. Pt also says he had CT scan done at [facility] in December and was told he had a swollen prostate. Has records with him today in office. IPSS - 19 PSA 07/20/24 - 1.0 Incomplete bladder emptying: yes, pushes on bladder after done urinating and more urine comes out, PV today 141mL Frequency: at least every 2hrs if not more Urgency: yes Nocturia: 2x per night Stream: normal stream - sometimes hard to start his stream, and other times hard to stop his stream Leaking: yes small dribbling all the time Post void dripping: yes, but states after hes done urinating he can push on his bladder and more urine will come out Abdominal pain: yes, from hernia, describes abdominal/groin pain/pressure Flank Pain: right side History of Present Illness Tests reviewed: reviewed UA, PVR, external referral records including PSA,, labs, CT scan I have reviewed the previous health record information and history for this patient from external providers. I have reviewed and verified the staff HPI to be accurate for this encounter. Review of Systems PHQ Score Initial Depression Screen Score: 0 SCORE ROS - Provider Constitutional: denies weight loss, denies hot flashes. Eyes: denies eye problems. Gastrointestinal: denies nausea, denies vomiting. Cardiovascular: denies chest pain or angina. Integumentary: no dryness Musculoskeletal: denies musculoskeletal symptoms. ENMT: denies otolaryngeal symptoms. Respiratory: no shortness of breath. Heme/Lymph: denies easy bleeding tendency, denies easy bruising tendency. Psychiatric: no confusion, no anxiety. Genitourinary: See HPI. Physical Exam Vitals & Measurements T: 37 ???C(Oral) HR: 74(Peripheral) RR: 18 BP: 140/79 HT: 61 in HT: 155 cm WT: 76.3 kg WT: 168.213 lb BMI: 31.76 General Appearance: alert, no distress, well nourished, well developed male. Assessment/Plan Regis is a 54 yo male re-referred by Dr. Maxime Hull for elevated PSA. Prior Dr. Valdes pt ROSALIE 18. 1. BPH with urinary obstruction (N40.1: Benign prostatic hyperplasia with lower urinary tract symptoms) IPSS 19. PVR 141 mL. UA today negative for blood and infection. Denies UTI, prostate infections. Denies experiencing gross hematuria. CT AP 12/2023 [facility] (reviewed from pt's phone) - Right inguinal hernia and right anterior lateral bladder extending into inguinal canal. Enlarged prostate (size not indicated). Most bothersome sx is post-void dribbling. Recommended pt to take time with voids. States he voids q2-3hrs. Discussed bladder herniating into inguinal canal likely contributing to sxs. Educated pt on pathophysiology of BPH. Discussed HUMMEL options including medications vs operative intervention. Recommend starting with medication such as Tamsulosin given cardiac risks. Pt agrees with plan. -Start Tamsulosin 0.4mg (take at different time from BP meds). Possible SEs discussed. Rx sent to [facility]. -Timed voids -Obtain CT image from [facility] to review -Follow up with General Surgery regarding right inguinal hernia repair, pt saw Dr. Urban in the past. Discussed risks of SBO and need to avoid constipation 2. Feeling of incomplete bladder emptying (R39.14: Feeling of incomplete bladder emptying) See #1. 3. Elevated PSA (R97.20: Elevated prostate specific antigen [PSA]) PSA: 05/14/22 - 5.20 12/11/22 - 2.80 & 12% 07/20/24 - 1.0 PSA has decreased. +Family hx of prostate cancer -Cont monitoring w/ PCP Ordered: [id number] Measure Post Void residual urine and/or bladder capacity by US- non-imaging Body Mass Index (BMI) documented 3008F Current tobacco smoker 1034F Depression Screening Negative 3352F Influenza immunization status assessed 1030F Medication list documented in medical record 1159F Most recent diastolic blood pressure <80 mm Hg 3078F Most recent systolic blood pressure >= 140 mm Hg 3077F Review of all meds by a prescribing practitioner or clinical pharmacist documented in EHR 1160F Urnls Dip Stick Auto w/o Microscopy POC 77093 4. Family history of prostate cancer in father (Z80.42: Family history of malignant neoplasm of prostate) Father was treated with brachytherapy. And grandfather and uncles. [1] 5. Inguinal hernia (K40.90: Unilateral inguinal hernia, without obstruction or gangrene, not specified as recurrent) CT AP 12/2023 [facility] (reviewed from pt's phone) - Right inguinal hernia and right anterior lateral bladder extending into inguinal canal. Enlarged prostate (size not indicated). Left abdominal bowel obstruction at that time. Pt states he has had trouble finding general surgeon to treat hernia. Has seen Dr. Urban previously. Recommended pt to f/u on this. 6. Antiplatelet or antithrombotic long-term use (Z79.02: correction (current) use of (more content not included)... [facility] Comment on above: Result Comment: Elec tronically Signed By: Fabian LINDQUIST, Varsha Rogers\.br\Date and Time Signed: 09/04/24 09:22 EST 09-02-2024 Hospital Discharge instructions Patient Education 09/02/2024 11:01:56 Benign Prostatic Hyperplasia Benign Prostatic Hyperplasia Benign prostatic hyperplasia (BPH) is an enlarged prostate gland that is caused by the normal aging process. The prostate may get bigger as a man gets older. The condition is not caused by cancer. The prostate is a walnut-sized gland that is involved in the production of semen. It is located in front of the rectum and below the bladder. The bladder stores urine. The urethra carries stored urine out of the body. An enlarged prostate can press on the urethra. This can make it harder to pass urine. The buildup of urine in the bladder can cause infection. Back pressure and infection may progress to bladder damage and kidney (renal) failure. What are the causes? This condition is part of the normal aging process. However, not all men develop problems from this condition. If the prostate enlarges away from the urethra, urine flow will not be blocked. If it enlarges toward the urethra and compresses it, there will be problems passing urine. What increases the risk? This condition is more likely to develop in men older than 50 years. What are the signs or symptoms? Symptoms of this condition include: Getting up often during the night to urinate. Needing to urinate frequently during the day. Difficulty starting urine flow. Decrease in size and strength of your urine stream. Leaking (dribbling) after urinating. Inability to pass urine. This needs immediate treatment. Inability to completely empty your bladder. Pain when you pass urine. This is more common if there is also an infection. Urinary tract infection (UTI). How is this diagnosed? This condition is diagnosed based on your medical history, a physical exam, and your symptoms. Tests will also be done, such as: A post-void bladder scan. This measures any amount of urine that may remain in your bladder after you finish urinating. A digital rectal exam. In a rectal exam, your health care provider checks your prostate by putting a lubricated, gloved finger into your rectum to feel the back of your prostate gland. This exam detects the size of your gland and any abnormal lumps or growths. An exam of your urine (urinalysis). A prostate specific antigen (PSA) screening. This is a blood test used to screen for prostate cancer. An ultrasound. This test uses sound waves to electronically produce a picture of your prostate gland. Your health care provider may refer you to a specialist in kidney and prostate diseases (urologist). How is this treated? Once symptoms begin, your health care provider will monitor your condition (active surveillance or watchful waiting). Treatment for this condition will depend on the severity of your condition. Treatment may include: Observation and yearly exams. This may be the only treatment needed if your condition and symptoms are mild. Medicines to relieve your symptoms, including: ?Medicines to shrink the prostate. ?Medicines to relax the muscle of the prostate. Surgery in severe cases. Surgery may include: ?Prostatectomy. In this procedure, the prostate tissue is removed completely through an open incision or with a laparoscope or robotics. ?Transurethral resection of the prostate (TURP). In this procedure, a tool is inserted through the opening at the tip of the penis (urethra). It is used to cut away tissue of the inner core of the prostate. The pieces are removed through the same opening of the penis. This removes the blockage. ?Transurethral incision (TUIP). In this procedure, small cuts are made in the prostate. This lessens the prostate's pressure on the urethra. ?Transurethral microwave thermotherapy (TUMT). This procedure uses microwaves to create heat. The heat destroys and removes a small amount of prostate tissue. ?Transurethral needle ablation (TUNA). This procedure uses radio frequencies to destroy and remove a small amount of prostate tissue. ?Interstitial laser coagulation (ILC). This procedure uses a laser to destroy and remove a small amount of prostate tissue. ?Transurethral electrovaporization (TUVP). This procedure uses electrodes to destroy and remove a small amount of prostate tissue. ?Prostatic urethral lift. This procedure inserts an implant to push the lobes of the prostate away from the urethra. Follow these instructions at home: Take giki-hif-ntksviy and prescription medicines only as told by your health care provider. Monitor your symptoms for any changes. Contact your health care provider with any changes. Avoid drinking large amounts of liquid before going to bed or out in public. Avoid or reduce how much caffeine or alcohol you drink. Give yourself time when you urinate. Keep all follow-up visits. This is important. Contact a health care provider if: You have unexplained back pain. Your symptoms do not get better with treatment. You develop side effects from the medicine you are taking. Your urine becomes very dark or has a bad smell. Your lower abdomen becomes distended and you have trouble passing urine. Get help right away if: You have a fever or chills. You suddenly cannot urinate. You feel light-headed or very dizzy, or you faint. There are large amounts of blood or clots in your urine. Your urinary problems become hard to manage. You develop moderate to severe low back or flank pain. The flank is the side of your body between the ribs and the hip. These symptoms may be an emergency. Get help right away. Call 911. Do not wait to see if the symptoms will go away. Do not drive yourself to the hospital. Summary Benign prostatic hyperplasia (BPH) is an enlarged prostate that is caused by the normal aging process. It is not caused by cancer. An enlarged prostate can press on the urethra. This can make it hard to pass urine. This condition is more likely to develop in men older than 50 years. Get help right away if you suddenly cannot urinate. This information is not intended to replace advice given to you by your health care provider. Make sure you discuss any questions you have with your health care provider. Document Revised: 03/21/2022 Document Reviewed: 03/21/2022 [employer] Patient Education 2023 [employer]. 09/02/2024 10:56:26 Steps to Quit Smoking Steps to Quit Smoking Smoking tobacco is the leading cause of preventable . It can affect almost every organ in the body. Smoking puts you and those around you at risk for developing many serious chronic diseases. Quitting smoking can be very challenging. Do not get discouraged if you are not successful the first time. Some people need to make many attempts to quit before they achieve long-term success. Do your best to stick to your quit plan, and talk with your health care provider if you have any questions or concerns. How do I get ready to quit? When you decide to quit smoking, create a plan to help you succeed. Before you quit: Pick a date to quit. Set a date within the next 2 weeks to give you time to prepare. Write down the reasons why you are quitting. Keep this list in places where you will see it often. Tell your family, friends, and co-workers that you are quitting. Support from people you are close to can make quitting easier. Talk with your health care provider about your options for quitting smoking. Find out what treatment options are covered by your health insurance. Identify people, places, things, and activities that make you want to smoke (triggers). Avoid them. What first steps can I take to quit smoking? Throw away all cigarettes at home, at work, and in your car. Throw away smoking accessories, such as ashtrays and lighters. Clean your car. Make sure to empty the ashtray. Clean your home, including curtains and carpets. What strategies can I use to quit smoking? Talk with your health care provider about combining strategies, such as taking medicines while you are also receiving in-person counseling. Using these two strategies together makes you more likely to succeed in quitting than if you used either strategy on its own. If you are or , talk with your health care provider about finding counseling or other support strategies to quit smoking. Do not take medicine to help you quit smoking unless your health care provider tells you to. Quit right away Quit smoking completely, instead of gradually reducing how much you smoke over a period of time. Stopping smoking right away may be more successful than gradually quitting. Attend in-person counseling to help you build problem-solving skills. You are more likely to succeed in quitting if you attend counseling sessions regularly. Even short sessions of 10 minutes can be effective. Take medicine You may take medicines to help you quit smoking. Some medicines require a prescription. You can also purchase ezhm-kzt-mchshbf medicines. Medicines may have nicotine in them to replace the nicotine in cigarettes. Medicines may: Help to stop cravings. Help to relieve withdrawal symptoms. Your health care provider may recommend: Nicotine patches, gum, or lozenges. Nicotine inhalers or sprays. Non-nicotine medicine that you take by mouth. Find resources Find resources and support systems that can help you quit smoking and remain smoke-free after you quit. These resources are most helpful when you use them often. They include: Online chats with a counselor. Telephone quitlines. Printed self-help materials. Support groups or group counseling. Text messaging programs. Mobile phone apps or applications. Use apps that can help you stick to your quit plan by providing reminders, tips, and encouragement. Examples of free services include Quit Guide from the CDC and smokefree.gov What can I do to make it easier to quit? Reach out to your family and friends for support and encouragement. Call telephone quitlines, such as 3-896-ATHH-NOW, reach out to support groups, or work with a counselor for support. Ask people who smoke to avoid smoking around you. Avoid places that trigger you to smoke, such as bars, parties, or smoke-break areas at work. Spend time with people who do not smoke. Lessen the stress in your life. Stress can be a smoking trigger for some people. To lessen stress, try: ?Exercising regularly. ?Doing deep-breathing exercises. ?Doing yoga. ?Meditating. What benefits will I see if I quit smoking? Over time, you should start to see positive results, such as: Improved sense of smell and taste. Decreased coughing and sore throat. Slower heart rate. Lower blood pressure. Clearer and healthier skin. The ability to breathe more easily. Fewer sick days. Summary Quitting smoking can be very challenging. Do not get discouraged if you are not successful the first time. Some people need to make many attempts to quit before they achieve long-term success. When you decide to quit smoking, create a plan to help you succeed. Quit smoking right away, not slowly over a period of time. Find resources and support systems that can help you quit smoking and remain smoke-free after you quit. This information is not intended to replace advice given to you by your health care provider. Make sure you discuss any questions you have with your health care provider. Document Revised: 08/24/2022 Document Reviewed: 08/24/2022 [employer] Patient Education 2023 [employer]. Follow Up Care 07/22/2024 13:55:39 With:Fabian LINDQUIST, WESLEY Rooney, [facility] Address: [address] [place] [address]- [phone] When: Unknown [facility] 09-02-2024 Note Patient Education Pulmonary Medicine Steps to Quit Smoking Smoking tobacco is the leading cause of preventable . It can affect almost every organ in the body. Smoking puts you and those around you at risk for developing many serious chronic diseases. Quitting smoking can be very challenging. Do not get discouraged if you are not successful the first time. Some people need to make many attempts to quit before they achieve long-term success. Do your best to stick to your quit plan, and talk with your health care provider if you have any questions or concerns. How do I get ready to quit? When you decide to quit smoking, create a plan to help you succeed. Before you quit: ??? Pick a date to quit. Set a date within the next 2 weeks to give you time to prepare. ??? Write down the reasons why you are quitting. Keep this list in places where you will see it often. ??? Tell your family, friends, and co-workers that you are quitting. Support from people you are close to can make quitting easier. ??? Talk with your health care provider about your options for quitting smoking. ??? Find out what treatment options are covered by your health insurance. ??? Identify people, places, things, and activities that make you want to smoke (triggers). Avoid them. What first steps can I take to quit smoking? Throw away all cigarettes at home, at work, and in your car. ??? Throw away smoking accessories, such as ashtrays and lighters. ??? Clean your car. Make sure to empty the ashtray. ??? Clean your home, including curtains and carpets. What strategies can I use to quit smoking? Talk with your health care provider about combining strategies, such as taking medicines while you are also receiving in-person counseling. Using these two strategies together makes you more likely to succeed in quitting than if you used either strategy on its own. If you are or , talk with your health care provider about finding counseling or other support strategies to quit smoking. Do not take medicine to help you quit smoking unless your health care provider tells you to. Quit right away ??? Quit smoking completely, instead of gradually reducing how much you smoke over a period of time. Stopping smoking right away may be more successful than gradually quitting. ??? Attend in-person counseling to help you build problem-solving skills. You are more likely to succeed in quitting if you attend counseling sessions regularly. Even short sessions of 10 minutes can be effective. Take medicine You may take medicines to help you quit smoking. Some medicines require a prescription. You can also purchase nbcb-hqh-pefnfrv medicines. Medicines may have nicotine in them to replace the nicotine in cigarettes. Medicines may: ??? Help to stop cravings. ??? Help to relieve withdrawal symptoms. Your health care provider may recommend: ??? Nicotine patches, gum, or lozenges. ??? Nicotine inhalers or sprays. ??? Non-nicotine medicine that you take by mouth. Find resources Find resources and support systems that can help you quit smoking and remain smoke-free after you quit. These resources are most helpful when you use them often. They include: ??? Online chats with a counselor. ??? Telephone quitlines. ??? Printed self-help materials. ??? Support groups or group counseling. ??? Text messaging programs. ??? Mobile phone apps or applications. Use apps that can help you stick to your quit plan by providing reminders, tips, and encouragement. Examples of free services include Quit Guide from the CDC and smokefree.gov What can I do to make it easier to quit? Reach out to your family and friends for support and encouragement. Call telephone quitlines, such as 4-840-IEXR-NOW, reach out to support groups, or work with a counselor for support. ??? Ask people who smoke to avoid smoking around you. ??? Avoid places that trigger you to smoke, such as bars, parties, or smoke-break areas at work. ??? Spend time with people who do not smoke. ??? Lessen the stress in your life. Stress can be a smoking trigger for some people. To lessen stress, try: ? Exercising regularly. ? Doing deep-breathing exercises. ? Doing yoga. ? Meditating. What benefits will I see if I quit smoking? Over time, you should start to see positive results, such as: ??? Improved sense of smell and taste. ??? Decreased coughing and sore throat. ??? Slower heart rate. ??? Lower blood pressure. ??? Clearer and healthier skin. ??? The ability to breathe more easily. ??? Fewer sick days. Summary ??? Quitting smoking can be very challenging. Do not get discouraged if you are not successful the first time. Some people need to make many attempts to quit before they achieve long-term success. ??? When you decide to quit smoking, create a plan to help you succeed. ??? Quit smoking right away, not s (more content not included)... [facility] 08-26-2024 Miscellaneous Notes Pt scheduled and educated while in office, copy of education in separate labeled encounter. Pt and vu and all questions answered. documented in this encounter [facility] 08-26-2024 Telephone encounter Note Pt scheduled and educated while in office, copy of education in separate labeled encounter. Pt and vu and all questions answered. [facility] 08-26-2024 Miscellaneous Notes Images from the original note were not included. [facility] Cardiology: Afib / atypical aflutter ablations YOUR PROCEDURE: Afib/typical aflutter ablation YOUR DOCTOR: Dr. Arthur Chappell DATE/TIME OF YOUR PROCEDURE: 11/25 @ 10:30 am - ARRIVE AT 9 am LOCATION OF YOUR PROCEDURE: [address] [address] Arrive to Entrance C, check in at the registration desk Please see the map on the last page for directions PRE OP REQUIREMENTS BELOW MUST BE COMPLETED PRIOR TO YOUR PROCEDURE OR IT MAY RESULT IN A DELAY OR CANCELLATION OF YOUR PROCEDURE PRE OP TESTING: NONE PRE OP LABS: You MUST complete your labs before your procedure. Draw pre op labs on or after 11/18 at any [facility] Lab, no paper orders are required, your orders are already in the system. NO FASTING REQUIRED FASTING: NO FOOD OR DRINK AFTER MIDNIGHT, night before your procedure. MEDICATIONS: HOLD the following medications before your procedure: Eliquis Hold the morning of the procedure Entresto hold 2, STOP 3 Jardiance (empagliflozin) hold for 3 days, STOP 3 If you were instructed to hold medications, you may take all your other medications as prescribed with sips of water. We recommend holding any over the counter supplements or vitamins the morning of your procedure. IMPORTANT INFORMATION PLEASE BE ADVISED! Dates and times of procedures are subject to change, at times due to emergencies with the hospital or physician. You will be notified as soon as possible if/when these changes may occur by the nurse at the office The automated [employer] messages about your procedure can be incorrect. Please do NOT follow any automated [employer] messages as these can provide incorrect information about your procedure time, arrival time or pre op instructions. Please follow the instructions provided by the nurse in the office at the time of your visit, in the mail or through a separate [employer] message labeled pre-op instructions . If you are unsure, please call the Surgery office [phone] WHAT TO BRING WITH YOU TO THE HOSPITAL: Bring your photo ID, insurance card and a current list of all your medications (including over the counter medications, vitamins, and supplements) There may be a chance you will have to stay overnight. Bring with you an overnight bag with a change of clothes, ALL of your prescription medications in their original containers from the pharmacy and any medical equipment you may need during your stay. You MUST have a line driver take you home after your procedure. You MAY NOT use a driving service (Taxi, Uber, Lyft, etc) and must be driven home by a family member or friend. You may have up to TWO visitors for your procedure CALL THE EP SURGERY OFFICE AT [phone] IMMEDIATELY IF: You have any illness, infection or tested positive for COVID in the last 5 days. You are unable to come to your procedure, please notify the office within 24 business hours You if were instructed to take your blood thinner and MISSED A DOSE If you are started on any of these medications after your procedure has been scheduled, call our office IMMEDIATELY: Jardiance (empaglifloxin), Farxiga (dapaglifloxin), Invokana (canaglifloxin), Steglatro (ertuglifloxin), Brenzavvy (bexaglifloxin) If you had an allergy to contrast dye and it was NOT addressed during your office visit. You did not complete your required pre op testing, pre op labs or follow the medication instructions as listed above. This may result in a delay or cancellation of your procedure POST OP - AFTER YOUR PROCEDURE: You MUST have a line driver to drive you home after your procedure, even if you stay overnight You will have an incision(s), follow the instructions provided by the hospital at your discharge on how to properly care for your incision and when to remove your dressing. If you are unsure or were not instructed, ask the post op staff at the hospital or call the [facility] Cardiology office at [phone], Option 7, nurses Inspect your incision(s) every day. Call immediately if you have any swelling, redness, bumps, drainage, your skin around your incision feels warm/hot or if you have a fever. ACTIVITY RESTRICTIONS: NO DRIVING FOR 24 HOURS AFTER YOUR PROCEDURE Do not lift anything heavier than 10 pounds or do any strenuous activity for a minimum of 1 week. Call your doctor if you have any signs of illness (fever 100 degrees or higher, chills, shivering, nausea, vomiting, discharge from your incision. BLOOD THINNER: Do NOT stop your blood thinner for a minimum of 3 months following your procedure. If you miss any doses, please call the office immediately. You may experience some mild to moderate bruising to your incision area after your procedure. You may also notice a small lump or bump, this is from the closure devices and/or manual pressure to stop the bleeding after the procedure is complete. Bruising and lump/bumps are normal however if you notice any redness, swelling, pain, drainage or the bruising is worsening please call the office at any time at [phone]. Some chest discomfort is normal and should be expected to decrease over 3-4 days post ablation procedure. It is normal to experience atrial fib or palpitations due to inflammation of the heart tissue, but they will usually subside within 3 months. Your physician may try to restore a normal rhythm during this healing process, so please contact the office if this is continuous for 5 days or more post procedure. CALL 911/REPORT TO THE EMERGENCY ROOM IF ANY OF THESE SYMPTOMS ARISE IN THE FIRST 3 MONTHS AFTER YOUR PROCEDURE: any mental status changes and/or symptoms of a stroke (i.e., trouble walking, speaking or understanding, paralysis or numbness of the face, arm, or leg, changes in vision) any increasing or severe chest discomfort or pain if you experience increasing bruising, bleeding, drainage at the groin site or abdominal pain post procedure, seek immediate care If you vomit any blood, have severe difficulty, or pain in swallowing, or have a sudden onset of severe heartburn/reflux If you are unsure regarding your symptoms, call 911 or go to the nearest ER or call the office at [phone] FOLLOW UP APPOINTMENTS: You will have a follow up appointment after your procedure with your physician, approximately 2 months post op. You will have this appointment scheduled at your office visit or at the time of scheduling your surgery by the nurse. If this has not been scheduled, call [phone] and select the option for EP scheduling documented in this encounter [facility] [employer] [facility] 08-26-2024 Telephone encounter Note Images from the original note were not included. [facility] Card[facility]: Afib / atypical aflutter ablations YOUR PROCEDURE: Afib/typical aflutter ablation YOUR DOCTOR: Dr. Arthur Chappell DATE/TIME OF YOUR PROCEDURE: 11/25 @ 10:30 am - ARRIVE AT 9 am LOCATION OF YOUR PROCEDURE: [address] [place] [address] Arrive to Entrance C, check in at the registration desk Please see the map on the last page for directions PRE OP REQUIREMENTS BELOW MUST BE COMPLETED PRIOR TO YOUR PROCEDURE OR IT MAY RESULT IN A DELAY OR CANCELLATION OF YOUR PROCEDURE PRE OP TESTING: NONE PRE OP LABS: You MUST complete your labs before your procedure. Draw pre op labs on or after 11/18 at any [facility] Lab, no paper orders are required, your orders are already in the system. NO FASTING REQUIRED FASTING: NO FOOD OR DRINK AFTER MIDNIGHT, night before your procedure. MEDICATIONS: HOLD the following medications before your procedure: Eliquis Hold the morning of the procedure Entresto hold 2, STOP 11/23 Jardiance (empagliflozin) hold for 3 days, STOP 11/22 If you were instructed to hold medications, you may take all your other medications as prescribed with sips of water. We recommend holding any over the counter supplements or vitamins the morning of your procedure. IMPORTANT INFORMATION PLEASE BE ADVISED! Dates and times of procedures are subject to change, at times due to emergencies with the hospital or physician. You will be notified as soon as possible if/when these changes may occur by the nurse at the office The automated [employer] messages about your procedure can be incorrect. Please do NOT follow any automated MyChart messages as these can provide incorrect information about your procedure time, arrival time or pre op instructions. Please follow the instructions provided by the nurse in the office at the time of your visit, in the mail or through a separate [employer] message labeled pre-op instructions . If you are unsure, please call the Surgery office [phone] WHAT TO BRING WITH YOU TO THE HOSPITAL: Bring your photo ID, insurance card and a current list of all your medications (including over the counter medications, vitamins, and supplements) There may be a chance you will have to stay overnight. Bring with you an overnight bag with a change of clothes, ALL of your prescription medications in their original containers from the pharmacy and any medical equipment you may need during your stay. You MUST have a line driver take you home after your procedure. You MAY NOT use a driving service (Taxi, Uber, Lyft, etc) and must be driven home by a family member or friend. You may have up to TWO visitors for your procedure CALL THE SURGERY OFFICE AT [phone] IMMEDIATELY IF: You have any illness, infection or tested positive for COVID in the last 5 days. You are unable to come to your procedure, please notify the office within 24 business hours You if were instructed to take your blood thinner and MISSED A DOSE If you are started on any of these medications after your procedure has been scheduled, call our office IMMEDIATELY: Jardiance (empaglifloxin), Farxiga (dapaglifloxin), Invokana (canaglifloxin), Steglatro (ertuglifloxin), Brenzavvy (bexaglifloxin) If you had an allergy to contrast dye and it was NOT addressed during your office visit. You did not complete your required pre op testing, pre op labs or follow the medication instructions as listed above. This may result in a delay or cancellation of your procedure POST OP - AFTER YOUR PROCEDURE: You MUST have a line driver to drive you home after your procedure, even if you stay overnight You will have an incision(s), follow the instructions provided by the hospital at your discharge on how to properly care for your incision and when to remove your dressing. If you are unsure or were not instructed, ask the post op staff at the hospital or call the [facility] Cardiology office at [phone], Option 7, nurses Inspect your incision(s) every day. Call immediately if you have any swelling, redness, bumps, drainage, your skin around your incision feels warm/hot or if you have a fever. ACTIVITY RESTRICTIONS: NO DRIVING FOR 24 HOURS AFTER YOUR PROCEDURE Do not lift anything heavier than 10 pounds or do any strenuous activity for a minimum of 1 week. Call your doctor if you have any signs of illness (fever 100 degrees or higher, chills, shivering, nausea, vomiting, discharge from your incision. BLOOD THINNER: Do NOT stop your blood thinner for a minimum of 3 months following your procedure. If you miss any doses, please call the office immediately. You may experience some mild to moderate bruising to your incision area after your procedure. You may also notice a small lump or bump, this is from the closure devices and/or manual pressure to stop the bleeding after the procedure is complete. Bruising and lump/bumps are normal however if you notice any redness, swelling, pain, drainage or the bruising is worsening please call the office at any time at [phone]. Some chest discomfort is normal and should be expected to decrease over 3-4 days post ablation procedure. It is normal to experience atrial fib or palpitations due to inflammation of the heart tissue, but they will usually subside within 3 months. Your physician may try to restore a normal rhythm during this healing process, so please contact the office if this is continuous for 5 days or more post procedure. CALL 911/REPORT TO THE EMERGENCY ROOM IF ANY OF THESE SYMPTOMS ARISE IN THE FIRST 3 MONTHS AFTER YOUR PROCEDURE: any mental status changes and/or symptoms of a stroke (i.e., trouble walking, speaking or understanding, paralysis or numbness of the face, arm, or leg, changes in vision) any increasing or severe chest discomfort or pain if you experience increasing bruising, bleeding, drainage at the groin site or abdominal pain post procedure, seek immediate care If you vomit any blood, have severe difficulty, or pain in swallowing, or have a sudden onset of severe heartburn/reflux If you are unsure regarding your symptoms, call 911 or go to the nearest ER or call the office at [phone] FOLLOW UP APPOINTMENTS: You will have a follow up appointment after your procedure with your physician, approximately 2 months post op. You will have this appointment scheduled at your office visit or at the time of scheduling your surgery by the nurse. If this has not been scheduled, call [phone] and select the option for EP scheduling [facility] 08-26-2024 History of Present illness Narrative Regis Maciason Date of visit: 08/26/2024 Date of : 1970 Age: 54 y.o. Patient Active Problem List Diagnosis Anxiety Asthma COPD (chronic obstructive pulmonary disease) ([facility] Hyperlipemia, mixed Insomnia due to medical condition Paroxysmal atrial fibrillation ([facility]) Coronary artery disease involving [place] coronary artery of [place] heart without angina pectoris Subarachnoid hematoma with loss of consciousness, initial encounter ([facility]) Atrial fibrillation with RVR ([facility]) Transaminitis Right upper quadrant abdominal pain Allergies Allergen Reactions Cardizem [Diltiazem Hcl] Dizziness and Hypotension Bactrim [Sulfamethoxazole-Trimethoprim] Buspirone Nausea Gabapentin Nausea Sulfamethoxazole Other Reaction(s): Unknown Reaction Trimethoprim Other Reaction(s): Unknown Reaction Varenicline Palpitations and Nausea Venlafaxine Rash Current Outpatient Medications Medication Sig Dispense Refill acetaminophen (TYLENOL EXTRA STRENGTH) 500 mg tablet Take 1 tablet (500 mg total) by mouth every 6 (six) hours as needed for pain. 30 tablet 0 amiodarone (PACERONE) 200 mg tablet Take 1 tablet (200 mg total) by mouth in the morning. 90 tablet 2 apixaban (ELIQUIS) 5 mg tablet Take 1 tablet (5 mg total) by mouth in the morning and 1 tablet (5 mg total) before bedtime. 60 tablet 0 atorvastatin (LIPITOR) 80 mg tablet Take 1 tablet (80 mg total) by mouth in the morning. 90 tablet 3 clopidogreL (PLAVIX) 75 mg tablet Take 1 tablet (75 mg total) by mouth in the morning. 90 tablet 2 empagliflozin (JARDIANCE) 10 mg tablet tablet Take 1 tablet (10 mg total) by mouth in the morning. 30 tablet 11 metoprolol succinate XL (TOPROL XL) 50 mg 24 hr tablet Take 1 tablet (50 mg total) by mouth in the morning. 30 tablet 0 sacubitriL-valsartan (ENTRESTO) 24-26 mg tablet Take 1 tablet by mouth in the morning and 1 tablet before bedtime. 60 tablet 11 spironolactone (ALDACTONE) 25 mg tablet Take 1 tablet (25 mg total) by mouth in the morning. 30 tablet 11 simethicone (MYLICON) 125 mg chewable tablet Chew 1 tablet (125 mg total) and swallow every 6 (six) hours as needed for flatulence. (Patient not taking: Reported on 08/26/2024) 30 tablet 0 No current facility-administered medications for this visit. 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 Plavix 75 mg once daily. Hypertension. COPD. History of methamphetamine use. History of substance abuse. Chronic systolic congestive heart failure/ ischemic cardiomyopathy with ejection fraction of 40%. Entresto 24/26 mg b.i.d., Aldactone 25 mg once daily, metoprolol XL 50 mg once daily, Jardiance 10 mg once daily. Hyperlipidemia. Lipitor 80 mg once daily. Paroxysmal atrial fibrillation and typical atrial flutter. Amiodarone 200 mg once daily, Eliquis 5 mg b.i.d.. Echo 11/09. EF 40-45%. No significant valvulopathy. Coronary angiogram 04/08. Patent LAD stents. Event monitor 05/09. Sinus rhythm. Patient has history of paroxysmal atrial fibrillation and atrial flutter. Patient was started on amiodarone for rhythm control strategy. Patient states that on amiodarone he has intermittent episodes of atrial arrhythmia but the burden is improved. Symptoms secondary to atrial fibrillation are palpitations, chest discomfort, diaphoresis and lightheadedness. Patient is here to discuss management of atrial fibrillation. Past Medical History: Diagnosis Date A-fib ([facility]) BPH (benign prostatic hyperplasia) CHF (congestive heart failure) ([facility]) COPD (chronic obstructive pulmonary disease) ([facility]) Hernia, inguinal HTN (hypertension) Insomnia Kidney injury Narcolepsy Pancreatitis S/P primary angioplasty with coronary stent 02/14/2023 Seizure ([facility]) Smoker No data recorded No data recorded No data recorded Past Surgical History: Procedure Laterality Date COLONOSCOPY FACIAL RECONSTRUCTION SURGERY FACIAL RECONSTRUCTION SURGERY VASECTOMY Family History Problem Relation Age of Onset COPD Mother Heart disease Mother Diabetes Mother Diabetes Father Cancer Father Social History Socioeconomic History Marital status: Spouse name: Not on file Number of children: Not on file Years of education: Not on file Highest education level: Not on file Occupational History Not on file Tobacco Use Smoking status: Every Day Current packs/day: 0.00 Average packs/day: 0.5 packs/day for 43.0 years (21.5 ttl pk-yrs) Types: Cigarettes Start date: 09/16/1980 Last attempt to quit: 09/2023 Years since quittin.9 Smokeless tobacco: Never Tobacco comments: Smoking down to about 6 sticks a day since last year Vaping Use Vaping status: Never Used Substance and Sexual Activity Alcohol use: Not Currently Drug use: Not Currently Frequency: 3.0 times per week Types: Methamphetamines, Marijuana, Cocaine, LSD Comment: last used mid september Sexual activity: Defer Partners: Female Other Topics Concern Caffeine Use No Social History Narrative Not on file Social Drivers of Health Financial Resource Strain: Low Risk (12/01/2023) Overall Financial Resource Strain (CARDIA) Difficulty of Paying Living Expenses: Not hard at all Food Insecurity: No Food Insecurity (08/26/2024) Hunger Screening Food Insecurity - Worry: Never True Food Insecurity - Inability: Never True Transportation Needs: No Transportation Needs (01/08/2024) PRAPARE - Transportation Lack of Transportation (Medical): No Lack of Transportation (Non-Medical): No Physical Activity: Not on file Stress: Not on file Social Connections: Not on file Interpersonal Safety: Not At Risk (01/08/2024) Humiliation, Afraid, Rape, and Kick questionnaire Fear of Current or Ex-Partner: No Emotionally Abused: No Physically Abused: No Sexually Abused: No Housing Instability: Low Risk (01/08/2024) Housing Instability Housing Instability: No Review of Systems Review of Systems Constitutional: Negative. Eyes: Negative. Respiratory: Positive for shortness of breath. Skin: Negative. Gastrointestinal: Negative. Genitourinary: Negative. Neurological: Positive for headaches. Psychiatric/Behavioral: Negative. Allergic/Immunologic: Negative. Vascular: Negative. CARDIOVASCULAR: Please review HPI. Physical Examination General appearance: Alert, oriented and cooperative. In no acute distress. Skin: Warm and dry to touch. Head: Normocephalic, without obvious abnormality, atraumatic. Ears, Nose, Mouth, Throat: Throat clear without erythema or exudate. Dentition intact. Eyes: Conjunctivae unremarkable, EOM intact. Neck: No JVD, No carotid bruit. Neck supple, trachea midline. Respiratory: Clear to auscultation bilaterally, no use of accessory muscles. Cardiovascular: RRR with normal S1 and S2 with no murmurs. Gastrointestinal: Soft, non-tender. Bowel sounds normal. Musculoskeletal: No peripheral edema. Neurologic: Oriented to time, person and place, affect appropriate. No focal/major motor defects noted. Psychiatric: Appropriate mood, memory and judgement. VITAL SIGNS: BP 130/76 (BP Site: Left Arm, BP Postition: Sitting) Pulse 71 Ht 157.5 cm (5' 2.01 ) Wt 74.3 kg (163 lb 12.8 oz) SpO2 96% BMI 29.95 kg/m No orders of the defined types were placed in this encounter. There are no discontinued medications. IMPRESSIONS/PLAN 1. Paroxysmal atrial fibrillation ([facility] - [facility] Card[facility] - Electrophysiology - [place], [place] 1. Paroxysmal atrial fibrillation and typical atrial flutter: - symptoms: Palpitations, shortness of breath, chest pain, lightheadedness and diaphoresis. - ECHO: EF [id number] reduced. No significant valvulopathy. - last coronary angiogram showed patent LAD stents. - currently on amiodarone but patient states that he is having breakthrough episodes of atrial fibrillation on amiodarone but the event monitor did not show any episodes. - any ways, I do not think amiodarone is a good long-term strategy. Discussed option of performing catheter ablation and taking him off antiarrhythmic therapy in the future. Explained the procedure in detail to the patient. I answered all his questions. Reviewed the risks and benefits in detail. Patient agreeable to proceed. - continue Eliquis 5 mg b.i.d. for thromboembolic prophylaxis. - of note, patient has history of substance abuse. Patient has not used any illicit drugs for almost a year. 2. Coronary artery disease status post LAD PCI: - recent coronary angiogram showed patent stents. Continue with Plavix and statin therapy. 3. chronic systolic congestive heart failure/ischemic cardiomyopathy with ejection fraction of 40-45%: No signs symptoms of decompensated heart failure. Euvolemic on examination. Will continue with current medical therapy which is being optimized by general cardiology service. 4. Hypertension: Blood pressure is controlled. 5. Hyperlipidemia: Continue with statin therapy. TODAYS ORDERS No orders of the defined types were placed in this encounter. FOLLOW UP No follow-ups on file. PCP: MAXIME HULL MD Referring Physician: Jude Albreto, PTA-ADMISSIONS SUPERVISOR [address] [place] [address] documented [facility] this encounter [facility] 08-26-2024 Instructions [facility]uelo [facility] - 08/26/2024 10:00 AM EST Are You Ready To Kick The Habit? Free Tobacco Cessation Resources [facility] Services [facility] provide all employees with free tobacco cessation services that include: Counseling to understand nicotine addiction Education about medications that can help you successfully quit Assistance with developing a plan to quit Call to set up an individual appointment or find out when group classes will be held: [facility]: [phone] [facility]: [phone] [facility]: [phone] [facility]: [phone] Quit Smoking Action Plan and Resources [facility] offers an eight-week, online smoking cessation plan to all [facility] employees, regardless of whether [place] is your medical insurance provider. Go to [email or web address] and click the Health Risk Assessment and Resources link to get started. In the Isabella Oliver menu, click Action Plans instead of Health Risk Assessment to access the Quit Smoking Action Plan. Additional smoking cessation resources are also available to all [facility] employees on the [employer] web page at www.Bjond/quits dee. [place] Tobacco Cessation Program If [place] is your medical insurance provider, there are more free resources available to you, including: No copays or deductibles on local tobacco cessation counseling services to help you quit Prescription assistance for tobacco cessation medications to help you quit For details about the tobacco cessation program available to [employer] members, go to www.[employer] (Search: Tobacco Cessation Program). [place] Tobacco Quit Line 6-627-SPAU-NOW ( ) is a toll-free, telephonic service that helps [place] residents quit smoking and using tobacco. It is staffed by experts who tailor a quit plan for you and provide you with advice. [place] Tobacco Quit Line 6-430-BXJS-NOW ( ) is a toll-free, telephonic service that helps [place] residents quit smoking and using tobacco. It is staffed by experts who tailor a quit plan for you and provide you with advice. Two weeks of nicotine replacement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 been with out medications since I left the [facility] correction in January they were suppose to follw with me and they did not ... So if the pain in my chest persists go to the er then I'd 90-100 heart rate something I should be concerned with thank your time and rapid replies Me to Regis Horta 03/31/24 4:20 PM Thanks for the update. So you haven't been taking any of your daily medications? It does sound like worsening chest pain. I would advise you to go to the ER for a workup. Last read by Regis Horta at 8:58 AM on 04/01/2024. Regis Horta to [facility] Clinical Staff (supporting Haroldo Oshea MD) 03/31/24 2:03 PM I currently don't have a way to check my blood pressure and I have been without my medication I am currently in a senior care house as [place] I have had tightness and cramps in my chest with my stomach feeling bloated 03/31/24 9:24 AM You routed this conversation to Christy Ko MD Me to Regis Horta 03/31/24 9:24 AM Good Morning Mr. Horta, We will send a message to Dr. Ko to review and advise. I do see you have an appointment scheduled 04/14/24. How are your blood pressure readings with heart rates? Have you been taking all of your medications as prescribed? What kind of symptoms are you having. Can you tell if you are in AFIB? Please give us an update and in the meantime, if you are having any worsening symptoms and/or elevated heart rates, please report to the ER. Thanks! Andrea LANE Last read by Regis Horta at 8:58 AM on 04/01/2024. March 30, 2024 Regis Horta to [facility] Clinical Staff (supporting Haroldo Oshea MD) CF 03/30/24 2:00 PM My resting heart rate is consistently 90-100 ocasionally reaching over 100 when should I be concerned? [facility] [employer] [facility] 11-08-2023 History of Present illness Narrative Regis Horta Date of visit: 11/08/2023 Date of : 1970 Age: 53 y.o. Patient Active Problem List Diagnosis Anxiety Asthma COPD (chronic obstructive pulmonary disease) ([facility] Hyperlipemia, mixed Insomnia due to medical condition Paroxysmal atrial fibrillation ([facility]) Coronary artery disease involving [place] coronary artery of twin [place] heart without angina pectoris Allergies Allergen Reactions Cardizem [Diltiazem Hcl] Dizziness and Hypotension Bactrim [Sulfamethoxazole-Trimethoprim] Buspirone Nausea Gabapentin Nausea Sulfamethoxazole Other Reaction(s): Unknown Reaction Trimethoprim Other Reaction(s): Unknown Reaction Varenicline Palpitations and Nausea Venlafaxine Rash Current Outpatient Medications Medication Sig Dispense Refill acetaminophen (TYLENOL EXTRA STRENGTH) 500 mg tablet Take 1 tablet (500 mg total) by mouth every 6 (six) hours as needed for pain. 30 tablet 0 apixaban (ELIQUIS) 5 mg tablet Take 1 tablet (5 mg total) by mouth in the morning and 1 tablet (5 mg total) before bedtime. 180 tablet 3 atorvastatin (LIPITOR) 80 mg tablet Take 1 tablet (80 mg total) by mouth in the morning. 90 tablet 3 clopidogreL (PLAVIX) 75 mg tablet Take 1 tablet (75 mg total) by mouth in the morning. 90 tablet 3 metoprolol succinate XL (TOPROL XL) 50 mg 24 hr tablet Take 1 tablet (50 mg total) by mouth in the morning. 90 tablet 3 No current facility-administered medications for this visit. Chief Complaint Patient presents with Follow-up EST PT [facility] 10/21/2023 AFIB SCHED W/PT History of Present Illness Patient is here for follow-up. He is currently incarcerated. He presented with chest pain a few weeks ago was noted be in atrial fibrillation with increased ventricular rates. Went through a stress test and an echo. His LV function was mildly depressed. This may have been tachycardia mediated. He was placed on a beta-jolly. He was not on medications at the time. His medications currently are not clear. He had PCI performed in November of 2022. He is taking Eliquis currently. He has not having regular palpitations at this point his heart rate does not go much above 100. Has previous alcohol and tobacco use. Past Medical History: Diagnosis Date A-fib ([facility]) BPH (benign prostatic hyperplasia) CHF (congestive heart failure) ([facility]) COPD (chronic obstructive pulmonary disease) ([facility]) Hernia, inguinal HTN (hypertension) Insomnia Kidney injury Narcolepsy Pancreatitis S/P primary angioplasty with coronary stent 02/14/2023 Seizure ([facility]) Smoker No data recorded No data recorded No data recorded Past Surgical History: Procedure Laterality Date COLONOSCOPY FACIAL RECONSTRUCTION SURGERY VASECTOMY Family History Problem Relation Age of Onset COPD Mother Heart disease Mother Diabetes Mother Diabetes Father Cancer Father Social History Socioeconomic History Marital status: Spouse name: Not on file Number of children: Not on file Years of education: Not on file Highest education level: Not on file Occupational History Not on file Tobacco Use Smoking status: Every Day Packs/day: 0.50 Years: 43.00 Additional pack years: 0.00 Total pack years: 21.50 Types: Cigarettes Start date: 09/16/1980 Smokeless tobacco: Never Tobacco comments: Smoking down to about 6 sticks a day since last year Vaping Use Vaping Use: Never used Substance and Sexual Activity Alcohol use: Not Currently Drug use: Not Currently Frequency: 3.0 times per week Types: Methamphetamines, Marijuana, Cocaine, LSD Comment: last used mid september Sexual activity: Defer Partners: Female Other Topics Concern Caffeine Use No Social History Narrative Not on file Social Determinants of Health Financial Resource Strain: Not on file Food Insecurity: No Food Insecurity (11/08/2023) Hunger Screening Food Insecurity - Worry: Never True Food Insecurity - Inability: Never True Transportation Needs: Not on file Physical Activity: Not on file Stress: Not on file Social Connections: Not on file Interpersonal Safety: Not on file Housing Instability: Not on file Review of Systems Review of Systems Constitutional: Negative. HENT: Negative. Eyes: Negative. Cardiovascular: Positive for chest pain. Respiratory: Positive for cough and shortness of breath. Endocrine: Negative. Hematologic/Lymphatic: Negative. Skin: Negative. Musculoskeletal: Positive for back pain. Gastrointestinal: Negative. Genitourinary: Negative. Neurological: Positive for light-headedness, loss of balance and numbness. Psychiatric/Behavioral: The patient is nervous/anxious. Allergic/Immunologic: Positive for environmental allergies. Vascular: Negative. CARDIOVASCULAR: Please review HPI. Physical Examination General appearance: Alert, oriented and cooperative. In no acute distress. Skin: Warm and dry to touch. Head: Normocephalic, without obvious abnormality, atraumatic. Ears, Nose, Mouth, Throat: Throat clear without erythema or exudate. Dentition intact. Eyes: Conjunctivae unremarkable, EOM intact. Neck: No JVD, No carotid bruit. Neck supple, trachea midline. Respiratory: Clear to auscultation bilaterally, no use of accessory muscles. Cardiovascular: RRR with normal S1 and S2 with no murmurs. Gastrointestinal: Soft, non-tender. Bowel sounds normal. Musculoskeletal: No peripheral edema. Neurologic: Oriented to time, person and place, affect appropriate. No focal/major motor defects noted. Psychiatric: Appropriate mood, memory and judgement. VITAL SIGNS: BP 136/88 (BP Site: Left Arm, BP Postition: Sitting) Pulse 97 Ht 157.5 cm (5' 2 ) Wt 69.9 kg (154 lb) SpO2 95% BMI 28.17 kg/m Orders Placed or Reconciled This Encounter Medications DISCONTD: clopidogreL (PLAVIX) 75 mg tablet Sig: Take 1 tablet (75 mg total) by mouth in the morning. atorvastatin (LIPITOR) 80 mg tablet Sig: Take 1 tablet (80 mg total) by mouth in the morning. Dispense: 90 tablet Refill: 3 clopidogreL (PLAVIX) 75 mg tablet Sig: Take 1 tablet (75 mg total) by mouth in the morning. Dispense: 90 tablet Refill: 3 DISCONTD: apixaban (ELIQUIS) 5 mg tablet Sig: Take 1 tablet (5 mg total) by mouth in the morning and 1 tablet (5 mg total) before bedtime. Dispense: 180 tablet Refill: 3 metoprolol succinate XL (TOPROL XL) 50 mg 24 hr tablet Sig: Take 1 tablet (50 mg total) by mouth in the morning. Dispense: 90 tablet Refill: 3 apixaban (ELIQUIS) 5 mg tablet Sig: Take 1 tablet (5 mg total) by mouth in the morning and 1 tablet (5 mg total) before bedtime. Dispense: 180 tablet Refill: 3 Medications Discontinued During This Encounter Medication Reason benzonatate (TESSALON PERLES) 100 mg capsule metoprolol succinate XL (TOPROL XL) 25 mg 24 hr tablet apixaban (ELIQUIS) 5 mg tablet Reorder clopidogreL (PLAVIX) 75 mg tablet Reorder apixaban (ELIQUIS) 5 mg tablet Reorder IMPRESSIONS/PLAN 1. Paroxysmal atrial fibrillation ([facility]) 2. Coronary artery disease involving [place] coronary artery of [place] heart without angina pectoris Symptomatic paroxysmal atrial fibrillation with RVR, occurred when he was off medications including beta-jolly CAD prior PCI, repeat catheterization 11/2022 Mild LV systolic dysfunction, very well likely tachycardia mediated Hypertension Hx of prediabetes Tobacco abuse Methamphetamine use 09/2023 COPD Been doing well over the last 3 weeks. I am going to increase his beta-jolly further. The LV systolic dysfunction may have been tachycardia mediated. Will repeat an echo down the road. Would need to be more aggressive about cardiomyopathy treatment did not normalize. He is currently incarcerated. If he is having symptoms or palpitations, I have asked that his blood pressure and heart rate be checked and we would be notified if his heart rate is above 105-110 beats per minute to adjust medications. I would suggest clopidogrel and Eliquis for the time being given his young age and low bleeding risk with previous PCI Start statin, not clear if he was receiving this TODAYS ORDERS No orders of the defined types were placed in this encounter. FOLLOW UP Return in about 4 months (around 03/08/2024). PCP: Kathy Noel Referring Physician: No referring provider defined for this encounter. documented in this encounter [facility] 11-08-2023 Miscellaneous Notes Addended by: CHRISTY KO on: 11/08/2023 10:51 AM Modules accepted: Orders Addended by: ANDREA MACHADO on: 11/08/2023 10:54 AM Modules accepted: Orders documented in this encounter [facility] 11-08-2023 Note Addended by: CHRISTY KO on: 11/08/2023 10:51 AM Modules accepted: Orders [facility] 11-08-2023 Note Addended by: ANDREA MCCLENDON on: 11/08/2023 10:54 AM Modules accepted: Orders [facility] 11-07-2023 Miscellaneous Notes Attempted to phone pt to remind of appt scheduled for 11/08/2023, no answer or vm. documented in this encounter [facility] 11-07-2023 Telephone encounter Note Attempted to phone pt to remind of appt scheduled for 11/08/2023, no answer or vm. [facility] 10-22-2023 Hospital course Narrative Images from the original note were not included. [facility] PHYS[facility] MEDICINE [facility] HOSPITALISTS MD Lucia Molina, MD Devyn Vick, MD Ariana Velazquez, MD Enrico Chowdhury, MD Reyna Dye, MD Arie Foley, MD Michelle Mills, MD Inessa Anglin, ADMISSIONS SUPERVISOR Mouna Murphy, ADMISSIONS SUPERVISOR Susanne Riggs, ADMISSIONS SUPERVISOR Lorenza Gamez, ADMISSIONS SUPERVISOR Dia Monique, ADMISSIONS SUPERVISOR Gilma Puga, ADMISSIONS SUPERVISOR Sejal Holguin, ADMISSIONS SUPERVISOR Radha Joel, ADMISSIONS SUPERVISOR El Dobson, ADMISSIONS SUPERVISOR Lois Ewing, ADMISSIONS SUPERVISOR Aleida Payton, ADMISSIONS SUPERVISOR Elisa Moreno, ADMISSIONS SUPERVISOR Nat Sotelo, ADMISSIONS SUPERVISOR John Hong, ADMISSIONS SUPERVISOR Sanjuana Flores, ADMISSIONS SUPERVISOR Aleida Almaraz, ADMISSIONS SUPERVISOR Bianca Lambert, ADMISSIONS SUPERVISOR Josue Cortez, ADMISSIONS SUPERVISOR Hospital Medicine Discharge Summary Patient: Regis Horta Date of : 1970 Room: 213/ Encounter date: 10/22/23 DATE OF ADMISSION: 10/20/2023 DATE OF DISCHARGE:10/22/2023 DISCHARGE DIAGNOSES Principal Problem: Atrial fibrillation with rapid ventricular response (CMS-HCC) Active Problems: Paroxysmal atrial fibrillation ([facility]) CONSULTANTS None PCP: NO PCP, NO PCP PROCEDURES None HOSPITAL COURSE SUMMARY Per HPI: Regis Horta is a 53 y.o. male who presents with Chest discomfort. Pt has been in correction which has prevented him from being able to take his medications for his atrial fibrillation. Pt had two stents placed by sebastian sykes around 7 months ago. Pt is a diagnosed diabetic in which he takes Eliquis for. Though he has not been able to take it due to his incarnation. ER Course: Case was reviewed with plastering supervisor, Dr. Ko. Agrees with care plan to continue IV Lopressor therapy. If the patient does not become rate controlled with this he would recommend digoxin loading. Will follow in consultation. He would like the patient admitted to the hospitalist service. No improvement in heart rate with additional lopressor doses. Sign out was that patient may need digoxin. Gave 1 dose 2.5 mcg per kg with slight improvement from the 160s to 130s to 140s. Will give additional dose since this is on the lower side of a loading dose. While he was here he did get an echocardiogram which did show decreased systolic function with an LVEF of 45-50%. Cardiology did see patient and will keep him for cardiac stress test due to decreased ejection fraction. Stress test negative. Patient cleared to be discharge per Cardiology. Patient should continue to take Toprol XL 25 mg daily as well as Eliquis 5 mg b.i.d. for VTE prophylaxis. Paper prescriptions written to give to law enforcement to take back to nurse at correction. 10/22/23, Hospital Day: 3 Interval History: Status: improved. No overnight events or new complaints. Converted back into sinus rhythm overnight. Review of Systems Constitutional: Negative for activity change, appetite change, fatigue and unexpected weight change. HENT: Negative for trouble swallowing. Respiratory: Negative for cough, sputum production, shortness of breath and wheezing. Cardiovascular: Negative for chest pain, palpitations and leg swelling. Gastrointestinal: Negative for abdominal pain, blood in stool, melena, constipation, diarrhea, nausea and vomiting. Genitourinary: Negative for difficulty urinating. Skin: Negative for color change and wound. Neurological: Negative for dizziness, seizures, speech difficulty and headaches. Psychiatric/Behavioral: Negative for sleep disturbance. Physical Exam BP 98/70 Pulse 83 Temp 36.6 C (97.8 F) (Oral) Resp 16 Ht 157.5 cm (5' 2 ) Wt 67.6 kg (149 lb) SpO2 97% BMI 27.25 kg/m Intake/Output Summary (Last 24 hours) at 10/22/2023 1444 Last data filed at 10/22/2023 0610 Gross per 24 hour Intake 740 ml Output 1000 ml Net -260 ml Constitutional: General: No acute distress. Cardiovascular: Rate and Rhythm: Normal rate and regular rhythm. Heart sounds: Normal heart sounds, S1 normal and S2 normal. Pulmonary: Effort: Pulmonary effort is normal. Breath sounds: Normal breath sounds. Musculoskeletal: Right lower leg: No edema. Left lower leg: No edema. Skin: General: Skin is warm and dry. Coloration: Skin is not pale. Neurological: General: No focal deficit present. Psychiatric: Mood and Affect: Mood normal. Behavior: Behavior normal. Labs Recent Results (from the past 48 hour(s)) CBC auto differential Collection Time: 10/20/23 11:25 PM Result Value Ref Range White Blood Cells 10.1 4.0 - 11.0 X10E9/L RBC count 5.22 4.10 - 5.70 X10E12/L Hemoglobin 15.5 13.0 - 17.0 g/dL Hematocrit 45.4 39 - 49 % MCV 87 80 - 100 fL MCH 29.6 27 - 34 pg MCHC 34.1 32 - 36 g/dL RDW 14.4 11.5 - 15.0 % Platelets 351 150 - 450 X10E9/L MPV 7.5 7 - 12 fL % neutrophils 47.5 % % lymphocytes 39.5 % % monocytes 9.4 % % eosinophils 2.2 % % Basophils 1.4 % Neutrophils Absolute (A) 4.8 1.5 - 6.6 X10E9/L Lymphocytes Absolute 4.0 (H) 1.0 - 3.5 X10E9/L Monocytes Absolute 0.9 0 - 0.9 X10E9/L Eosinophils Absolute 0.2 0.0 - 0.4 X10E9/L Basophils Absolute 0.1 0.0 - 0.2 X10E9/L Protime & INR Collection Time: 10/20/23 11:25 PM Result Value Ref Range Protime 11.5 9.8 - 13.2 sec Inr 1.0 0.8 - 1.1 APTT Collection Time: 10/20/23 11:25 PM Result Value Ref Range aPTT 34 26 - 37 sec Basic Metabolic Panel Collection Time: 10/20/23 11:25 PM Result Value Ref Range Sodium 138 134 - 146 mmol/L Potassium, Bld 3.7 3.5 - 5.0 mmol/L Chloride 108 98 - 109 mmol/L CO2 21 (L) 22 - 32 mmol/L Anion gap 9 5 - 15 mmol/L BUN 22 5 - 23 mg/dL Creatinine 0.94 0.70 - 1.20 mg/dL Glucose 121 (H) 65 - 99 mg/dL Calcium 9.3 8.5 - 10.5 mg/dL eGFR (CKD-EPI)non-race dependent >90 >59 ml/min/1.73sq.m Troponin I Collection Time: 10/20/23 11:25 PM Result Value Ref Range Troponin I <0.01 0.00 - 0.04 ng/mL Magnesium Collection Time: 10/20/23 11:25 PM Result Value Ref Range Magnesium 2.3 1.8 - 2.6 mg/dL Digoxin level Collection Time: 10/20/23 11:25 PM Result Value Ref Range Digoxin Lvl <0.2 (L) 0.8 - 2.0 ng/mL Thyroid profile includes TSH FT4 Collection Time: 10/20/23 11:25 PM Result Value Ref Range TSH 2.27 0.49 - 4.67 uIU/mL T4, free 0.68 0.61 - 1.60 ng/dL Drug Screen, Urine Collection Time: 10/20/23 11:42 PM Result Value Ref Range Amphetamine/methamphetamine Negative Negative^Negative Barbiturate Screen, Ur Negative Negative^Negative Benzodiazepine Screen, Urine Negative Negative^Negative THC, urine Negative Negative^Negative Cocaine (metabolite) Negative Negative^Negative Opiate Quant, Ur Negative Negative^Negative Phencyclidine Negative Negative^Negative Oxycodone Negative Negative^Negative Methadone Negative Negative^Negative Ecstasy Negative Negative^Negative Troponin I Collection Time: 10/21/23 12:43 PM Result Value Ref Range Troponin I <0.01 0.00 - 0.04 ng/mL Comprehensive metabolic panel Collection Time: 10/22/23 5:34 AM Result Value Ref Range Sodium 138 134 - 146 mmol/L Potassium, Bld 4.0 3.5 - 5.0 mmol/L Chloride 103 98 - 109 mmol/L CO2 25 22 - 32 mmol/L Anion gap 10 5 - 15 mmol/L BUN 22 5 - 23 mg/dL Creatinine 0.94 0.70 - 1.20 mg/dL Glucose 95 65 - 99 mg/dL Calcium 9.2 8.5 - 10.5 mg/dL Total Protein 6.8 6.0 - 8.0 g/dL Albumin 4.2 3.2 - 5.3 g/dL Alkaline Phosphatase 57 39 - 130 U/L AST 23 0 - 41 U/L ALT 38 0 - 40 U/L Total bilirubin 0.9 0.3 - 1.2 mg/dL eGFR (CKD-EPI)non-race dependent >90 >59 ml/min/1.73sq.m Magnesium Collection Time: 10/22/23 5:34 AM Result Value Ref Range Magnesium 2.1 1.8 - 2.6 mg/dL CBC auto differential Collection Time: 10/22/23 5:34 AM Result Value Ref Range White Blood Cells 9.2 4.0 - 11.0 X10E9/L RBC count 4.83 4.10 - 5.70 X10E12/L Hemoglobin 14.6 13.0 - 17.0 g/dL Hematocrit 41.7 39 - 49 % MCV 86 80 - 100 fL MCH 30.1 27 - 34 pg MCHC 34.9 32 - 36 g/dL RDW 14.0 11.5 - 15.0 % Platelets 349 150 - 450 X10E9/L MPV 7.5 7 - 12 fL % neutrophils 52.6 % % lymphocytes 34.3 % % monocytes 9.2 % % eosinophils 2.7 % % Basophils 1.2 % Neutrophils Absolute (A) 4.8 1.5 - 6.6 X10E9/L Lymphocytes Absolute 3.2 1.0 - 3.5 X10E9/L Monocytes Absolute 0.8 0 - 0.9 X10E9/L Eosinophils Absolute 0.3 0.0 - 0.4 X10E9/L Basophils Absolute 0.1 0.0 - 0.2 X10E9/L Radiology Nuc stress Lexiscan Result Date: 10/22/2023 Narrative: Stress ECG: A Lexiscan protocol was performed. Baseline ECG indicates sinus rhythm and non-specific T-wave changes. There were no arrhythmias during stress. The stress ECG was negative. Perfusion Defect: There is no reversible perfusion defect. Basal inferoseptal fixed defect probably due to soft tissue attenuation. Stress Function Comments: Calculated stress ejection fraction is 46%. Perfusion Comments: Based on the perfusion study data, risk of cardiovascular events is low risk. Echo complete W/O contrast Result Date: 10/21/2023 Narrative: Left Ventricle: Systolic function is mildly to moderately decreased with an ejection fraction of 40-45%. Global hypokinesia. Unable to assess diastolic function due to atrial fibrillation/flutter. Right Ventricle: Right ventricular size appears normal. Systolic function is mildly reduced. Mitral Valve: The leaflets are mildly thickened. There is trace regurgitation. There is no evidence of mitral valve stenosis. Tricuspid Valve: The leaflets are mildly thickened. There is trace regurgitation. There is no evidence of tricuspid valve stenosis. Pericardium: There is no pericardial effusion. Aorta: The aortic root is normal in size. X-ray chest 1 view Result Date: 10/20/2023 Narrative: Single view chest History: AFib. Chest pain. Comparison: None Findings: Single portable view of the chest. Cardiac silhouette is normal in size. Trachea midline. Calcified nodule right upper lobe measuring 10 mm, likely benign granuloma. No large pleural effusion. No pneumothorax. Impression: 1. No acute findings. Finalized by Lopez Quintanilla MD on 10/20/2023 11:55 PM DISCHARGE ASSESSMENT & PLAN Metoprolol XL 25 mg daily. Eliquis 5 mg b.i.d.. DISCHARGE INSTRUCTION Disposition: Custody of [facility] Condition: Good Activity: activity as tolerated Diet: Adult diet Regular Texture Adult diet Follow up: NO PCP, NO PCP within 7-14 days. Follow-up with cardiology as able. Labs/Imaging/Pathology: Discharge Medications: Medication List START taking these medications Instructions Last Dose Given Next Dose Due apixaban 5 mg tablet Commonly known as: ELIQUIS Take 1 tablet (5 mg total) by mouth in the morning and 1 tablet (5 mg total) before bedtime. metoprolol succinate XL 25 mg 24 hr tablet Commonly known as: TOPROL XL Start taking on: October 23, 2023 Take 1 tablet (25 mg total) by mouth in the morning. Where to Get Your Medications You can get these medications from any pharmacy Bring a paper prescription for each of these medications apixaban 5 mg tablet metoprolol succinate XL 25 mg 24 hr tablet >30 minutes were spent on discharging this patient. GRANT Angeles, 10/22/2023 2:44 PM [facility] Hospitalists 7AM-7PM: Message rounding BETY in [employer] or page through [employer]. 7PM-7AM: Page on-call BETY through our Smart [employer] service, . This note is dictated with the use of M*Modal. Please note that this dictation was completed with computer voice recognition software. Quite often unanticipated grammatical, syntax, homophones, and other interpretive errors are inadvertently transcribed by the computer software. Please disregard these errors. Please excuse any errors that have escaped final proofreading. GRANT Angeles 10/22/23 1449 Attending Addendum: I Dr Arie Foley, personally performed a face to face diagnostic evaluation on this patient. I have reviewed the note authored by the advance practice provider including history, review of systems, physical examination, medical decision making and agree with the assessment and plan as written. I have seen and evaluated the patient,I have repeated the mcadams portions of the physical exam and concur with the BETY findings.I have reviewed all laboratory findings and imaging reprts/films.I agree with the plan as noted. documented in this encounter [facility] 10-22-2023 History of Present illness Narrative Images from the original note were not included. [facility] [address] [place] [address] PROGRESS NOTE Regis Horta was seen examined at bedside this morning. No reported cardiac events overnight. Denies any chest pain shortness of breath or palpitations or dizziness orthopnea or edema. Echocardiogram results reviewed and discussed with the patient. Review of telemetry showing patient not connected at the time of my visit. Reviewed vitals signs showing heart rate controlled overnight. SUBJECTIVE Allergies: Allergies Allergen Reactions Cardizem [Diltiazem Hcl] Dizziness and Hypotension CURRENT MEDICATIONS apixaban, 5 mg, oral, BID metoprolol succinate XL, 25 mg, oral, Daily metoprolol tartrate, 50 mg, oral, Once pantoprazole, 40 mg, oral, QAM AC sodium chloride, 3 mL, intravenous, Q12H JABARI CONTINUOUS INFUSIONS dextrose 5 % in water, 100 mL/hr sodium chloride 0.9 %, 20 mL/hr OBJECTIVE CBC: Results from last 7 days Lab Units 10/22/23 0534 10/20/23 2325 WBC X10E9/L 9.2 10.1 HEMOGLOBIN g/dL 14.6 15.5 HEMATOCRIT % 41.7 45.4 MCV fL 86 87 PLATELETS X10E9/L 349 351 BMP: Results from last 7 days Lab Units 10/22/23 0534 10/20/23 2325 SODIUM mmol/L 138 138 POTASSIUM mmol/L 4.0 3.7 CHLORIDE mmol/L 103 108 CO2 mmol/L 25 21* BUN mg/dL 22 22 CREATININE mg/dL 0.94 0.94 CALCIUM mg/dL 9.2 9.3 MAGNESIUM mg/dL 2.1 2.3 PT/INR: Results from last 7 days Lab Units 10/20/23 2325 PROTIME sec 11.5 INR 1.0 APTT: MAG: Results from last 7 days Lab Units 10/22/23 0534 10/20/23 2325 MAGNESIUM mg/dL 2.1 2.3 D Dimer: Troponin I Results from last 7 days Lab Units 10/21/23 1243 10/20/23 2325 TROPONIN I ng/mL <0.01 <0.01 ProBNP Lipid Panel: No results found for: CHOL , TRIG , HDL , CHOLHDLR Liver Panel: No results found for: ALB HgA1C: No results found for: HGBA1C ABG: LAST ECHO (Within 2 Years) Echo complete W/O contrast Result Date: 10/21/2023 Left Ventricle: Systolic function is mildly to moderately decreased with an ejection fraction of 40-45%. Global hypokinesia. Unable to assess diastolic function due to atrial fibrillation/flutter. Right Ventricle: Right ventricular size appears normal. Systolic function is mildly reduced. Mitral Valve: The leaflets are mildly thickened. There is trace regurgitation. There is no evidence of mitral valve stenosis. Tricuspid Valve: The leaflets are mildly thickened. There is trace regurgitation. There is no evidence of tricuspid valve stenosis. Pericardium: There is no pericardial effusion. Aorta: The aortic root is normal in size. RADIOLOGY: Echo complete W/O contrast Result Date: 10/21/2023 Left Ventricle: Systolic function is mildly to moderately decreased with an ejection fraction of 40-45%. Global hypokinesia. Unable to assess diastolic function due to atrial fibrillation/flutter. Right Ventricle: Right ventricular size appears normal. Systolic function is mildly reduced. Mitral Valve: The leaflets are mildly thickened. There is trace regurgitation. There is no evidence of mitral valve stenosis. Tricuspid Valve: The leaflets are mildly thickened. There is trace regurgitation. There is no evidence of tricuspid valve stenosis. Pericardium: There is no pericardial effusion. Aorta: The aortic root is normal in size. PHYSICAL EXAM Admission Weight: Weight: 68 kg (150 lb) I/O last 3 completed shifts: In: 740 [P.O.:740] Out: 1500 [Urine:1500] Weight change: -0.091 kg (-3.2 oz) Wt Readings from Last 3 Encounters: 10/22/23 67.6 kg (149 lb) Vitals: Vitals: 10/21/23 1815 10/21/23 2013 10/22/23 0012 10/22/23 0328 BP: 110/76 97/60 111/63 108/48 Pulse: 74 80 74 68 Resp: 16 14 16 Temp: 36.4 C (97.6 F) 36.4 C (97.6 F) 36.4 C (97.6 F) TempSrc: Oral Oral Oral SpO2: 97% 97% 97% 96% Weight: 67.9 kg (149 lb 12.8 oz) 67.6 kg (149 lb) Height: 157.5 cm (5' 2 ) Admit Weight Weight: 68 kg (150 lb) Last 3 Weights Last 3 Weight Readings 10/20/23 2311 10/21/23201210/22/23 0328 Weight: 68 kg (150 lb) 67.9 kg (149 lb 12.8 oz) 67.6 kg (149 lb) Body mass index is 27.25 kg/m . INTAKE/OUTPUT I/O last 3 completed shifts: In: 740 [P.O.:740] Out: 1500 [Urine:1500] Intake/Output Summary (Last 24 hours) at 10/22/2023 0758 Last data filed at 10/22/2023 0610 Gross per 24 hour Intake 740 ml Output 1500 ml Net -760 ml General appearance: Alert oriented and cooperative, In no acute distress Lungs: Clear to ausculation bilaterally, no use of accessory muscles Heart:: Irregularly irregular rhythm, normal rate, with normal S1 and S2, no murmurs and no gallops. Abdomen: Soft, non-tender, bowel sounds normal. Extremities: No edema ASSESSMENT Paroxysmal atrial fibrillation with RVR on Eliquis CAD with hx of stents Cardiomyopathy with EF 40-45% Hypertension Hx of prediabetes Tobacco abuse Methamphetamine use 09/2023 COPD PLAN -patient stable and asymptomatic when seen. Euvolemic on exam. -echocardiogram results reviewed discussed with the patient. -recommend nuclear stress test to rule out ischemia given cardiomyopathy with reduced EF with AFib RVR. Patient agreeable. -if stress test negative for inducible ischemia, can plan for discharge later today. -switch from Lopressor to Toprol XL 25 mg daily. -plan to optimize GDMT, be done as outpatient. -recommend keeping on telemetry while hospitalized. -Eliquis for prevention of thromboembolic events. -will follow-up. ANUEL BOWEN MD This note was completed using a voice dental technician apprentice system. Every effort was made to ensure accuracy. However, inadvertent computerized dental technician apprentice errors may be present. documented in this encounter [facility] 10-22-2023 Plan of care note Problem: Safety Goal: Patient will be injury free during hospitalization Description: INTERVENTIONS: 1. Assess patient's risk for falls and implement fall prevention plan of care per policy 2. Provide and maintain a safe environment 3. Proper use of double Identifiers 4. Medication administration using the 5 rights 5. Hand hygiene 6. Specimens are labeled at the bedside 7. Instruct patient/ patient registered representative about use of safety devices 8. Include patient/ patient registered representative in decisions related to safety Outcome: Progressing Note: Evaluation of progress towards goal: Able to ambulate In and Out of the bed independently upon assessment, per patient he uses cane normally. No injury/ trauma/ fall. Hourly rounds completed. Problem: Cardiovascular - Adult Goal: Absence of cardiac dysrhythmias or at baseline Description: INTERVENTIONS: 1. Continuous cardiac monitoring, monitor vital signs, obtain 12 lead EKG as ordered 2. Monitor for therapeutic effect/ side effects and safely 3. Administer antiarrhythmic and heart rate control medications as ordered 3. Initiate emergency measures for life threatening arrhythmias 4. Monitor labs and administer replacement/adjust therapy as ordered Outcome: Progressing Note: Evaluation of progress towards goal: EKG - NSR, initially AF with RVR ( received digoxin IV from ER) , denies any cardiac related complaints. Problem: Respiratory - Adult Goal: Achieves optimal ventilation and oxygenation Description: Patient's goal is: INTERVENTIONS: 1. Assess for changes in respiratory status 2. Assess for changes in mentation and behavior 3. Position to facilitate oxygenation and minimize respiratory effort 4. Oxygen supplementation based on oxygen saturation or ABGs as ordered 5. Consult smoking cessation as indicated 6. Encourage broncho-pulmonary hygiene including cough, deep breathe, Incentive Spirometry, keep HOB elevated as tolerated, and encourage ambulation, as ordered 7. Assess the need for suctioning and obtain order to maintain clear airway 8. Assess and instruct patient to report SOB or any respiratory difficulty 9. Assess the need for Respiratory Therapy support if not already ordered 10. Initiate emergency measures for respiratory failure Outcome: Progressing Note: Evaluation of progress towards goal: Currently on room air, breath sounds clear, not in respiratory distress. [facility] 10-22-2023 Miscellaneous Notes Problem: Safety Goal: Patient will be injury free during hospitalization Description: INTERVENTIONS: 1. Assess patient's risk for falls and implement fall prevention plan of care per policy 2. Provide and maintain a safe environment 3. Proper use of double Identifiers 4. Medication administration using the 5 rights 5. Hand hygiene 6. Specimens are labeled at the bedside 7. Instruct patient/ patient registered representative about use of safety devices 8. Include patient/ patient registered representative in decisions related to safety Outcome: Progressing Note: Evaluation of progress towards goal: Able to ambulate In and Out of the bed independently upon assessment, per patient he uses cane normally. No injury/ trauma/ fall. Hourly rounds completed. Problem: Cardiovascular - Adult Goal: Absence of cardiac dysrhythmias or at baseline Description: INTERVENTIONS: 1. Continuous cardiac monitoring, monitor vital signs, obtain 12 lead EKG as ordered 2. Monitor for therapeutic effect/ side effects and safely 3. Administer antiarrhythmic and heart rate control medications as ordered 3. Initiate emergency measures for life threatening arrhythmias 4. Monitor labs and administer replacement/adjust therapy as ordered Outcome: Progressing Note: Evaluation of progress towards goal: EKG - NSR, initially AF with RVR ( received digoxin IV from ER) , denies any cardiac related complaints. Problem: Respiratory - Adult Goal: Achieves optimal ventilation and oxygenation Description: Patient's goal is: INTERVENTIONS: 1. Assess for changes in respiratory status 2. Assess for changes in mentation and behavior 3. Position to facilitate oxygenation and minimize respiratory effort 4. Oxygen supplementation based on oxygen saturation or ABGs as ordered 5. Consult smoking cessation as indicated 6. Encourage broncho-pulmonary hygiene including cough, deep breathe, Incentive Spirometry, keep HOB elevated as tolerated, and encourage ambulation, as ordered 7. Assess the need for suctioning and obtain order to maintain clear airway 8. Assess and instruct patient to report SOB or any respiratory difficulty 9. Assess the need for Respiratory Therapy support if not already ordered 10. Initiate emergency measures for respiratory failure Outcome: Progressing Note: Evaluation of progress towards goal: Currently on room air, breath sounds clear, not in respiratory distress. documented in this encounter [facility] 10-21-2023 Nurse Note 2013 [employer] tried to gather home med list. Pt. Was unsure of all his home medication list but able name some without the doses, like Plavix, Eliquis ,Topmax, Spiriva, Symbicort BD,Albuterol as needed Reglan. Inquire other alternatives how we can secure his med list but since his also in [facility] there is no way to retrieve the list. Will call tom. RACQUEL juárez to get medication list information. [facility] 10-21-2023 Nurse Note 2013 [employer] Man tried to gather home med list. Pt. Was unsure of all his home medication list but able name some without the doses, like Plavix, Eliquis ,Topmax, Spiriva, Symbicort BD,Albuterol as needed Reglan. Inquire other alternatives how we can secure his med list but since his also in [facility] there is no way to retrieve the list. Will call tom. RACQUEL juárez to get medication list information. documented in this encounter [facility] 10-21-2023 History and physical note Images from the original note were not included. [facility] MD Lucia Molina, MD Devyn Vick, MD Ariana Velazquez, MD Enrico Chowdhury, MD Reyna Dye, MD Arie Foley, MD Michelle Mills, MD Inessa Anglin, ADMISSIONS SUPERVISOR Mouna Murphy, ADMISSIONS SUPERVISOR Susanne Riggs, ADMISSIONS SUPERVISOR Lorenza Gamez, ADMISSIONS SUPERVISOR Dia Monique, ADMISSIONS SUPERVISOR Gilma Puga, ADMISSIONS SUPERVISOR Sejal Holguin, ADMISSIONS SUPERVISOR Radha Joel, ADMISSIONS SUPERVISOR El Dobson, ADMISSIONS SUPERVISOR Lois Ewing, ADMISSIONS SUPERVISOR Aleida Payton, ADMISSIONS SUPERVISOR Elisa Moreno, ADMISSIONS SUPERVISOR Nat Sotelo, ETELVINA Hong, ETELVINA Flores, ETELVINA Almaraz, ETELVINA Lambert, ADMISSIONS SUPERVISOR Josue Cortez, ADMISSIONS SUPERVISOR Hospital Medicine History & Physical Patient: Regis Horta Date of : 1970 Room: 04/23 PCP: NO PCP, NO PCP Admission date: 10/20/2023 11:09 PM Encounter date: 10/21/23 SUBJECTIVE Regis Horta is a 53 y.o. male who presents with Chest discomfort. Pt has been in correction which has prevented him from being able to take his medications for his atrial fibrillation. Pt had two stents placed by sebastian sykes around 7 months ago. Pt is a diagnosed diabetic in which he takes Eliquis for. Though he has not been able to take it due to his incarnation. ER Course: Case was reviewed with plastering supervisor, Dr. Ko. Agrees with care plan to continue IV Lopressor therapy. If the patient does not become rate controlled with this he would recommend digoxin loading. Will follow in consultation. He would like the patient admitted to the hospitalist service. No improvement in heart rate with additional lopressor doses. Sign out was that patient may need digoxin. Gave 1 dose 2.5 mcg per kg with slight improvement from the 160s to 130s to 140s. Will give additional dose since this is on the lower side of a loading dose Chief Complaint Patient presents with Atrial Fibrillation Assoc with SOB and chest tightness. HR 140-180s. Pt has hx of AFIb and states he has adverse reaction to cardizem. 2030 he received ASA Allergies: Patient has no known allergies. Prior to Admission medications Not on File Past Medical History: Patient has a past medical history of A-fib ([facility]). Past Surgical History: Patient has no past surgical history on file. Family History: Patient's family history is not on file. Social History: Patient reports that he has been smoking cigarettes. He has been smoking an average of 1 pack per day. He does not have any smokeless tobacco history on file. He reports that he does not currently use alcohol. He reports current drug use. Drug: Methamphetamines. Review of Systems Review of Systems Constitutional: Negative for activity change, appetite change, chills, diaphoresis, fatigue and fever. HENT: Negative for tinnitus and trouble swallowing. Eyes: Negative for visual disturbance. Respiratory: Negative for cough, chest tightness, shortness of breath and wheezing. Cardiovascular: Positive for palpitations. Negative for chest pain and leg swelling. Gastrointestinal: Negative for abdominal pain, diarrhea, nausea and vomiting. Genitourinary: Negative for difficulty urinating. Skin: Negative for rash. Neurological: Negative for dizziness, syncope, speech difficulty, weakness, light-headedness, numbness and headaches. Psychiatric/Behavioral: Negative for sleep disturbance. OBJECTIVE BP 108/84 Pulse (!) 118 Temp 36.7 C (98.1 F) Resp 20 Ht 157.5 cm (5' 2 ) Wt 68 kg (150 lb) SpO2 97% BMI 27.44 kg/m Intake/Output Summary (Last 24 hours) at 10/21/2023 1534 Last data filed at 10/21/2023 1327 Gross per 24 hour Intake -- Output 500 ml Net -500 ml Physical Exam Physical Exam Vitals and nursing note reviewed. Constitutional: General: He is not in acute distress. HENT: Head: Normocephalic and atraumatic. Right Ear: External ear normal. Left Ear: External ear normal. Nose: Nose normal. Mouth/Throat: Mouth: Mucous membranes are moist. Pharynx: Oropharynx is clear. Eyes: Extraocular Movements: Extraocular movements intact. Pupils: Pupils are equal, round, and reactive to light. Neck: Vascular: No carotid bruit or JVD. Cardiovascular: Rate and Rhythm: Tachycardia present. Rhythm irregular. Pulses: Normal pulses. Heart sounds: Murmur heard. 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 Pulmonary: Effort: Pulmonary effort is normal. Breath sounds: Normal breath sounds. Abdominal: General: Bowel sounds are normal. Palpations: Abdomen is soft. Tenderness: There is no abdominal tenderness. There is no right CVA tenderness or left CVA tenderness. Musculoskeletal: Right lower leg: No edema. Left lower leg: No edema. Lymphadenopathy: Cervical: No cervical adenopathy. Skin: General: Skin is warm and dry. Capillary Refill: Capillary refill takes less than 2 seconds. Neurological: General: No focal deficit present. Mental Status: He is alert and oriented to person, place, and time. Psychiatric: Mood and Affect: Mood normal. Behavior: Behavior normal. Thought Content: Thought content normal. Judgment: Judgment normal. Medications Scheduled: apixaban, 5 mg, oral, BID metoprolol succinate XL, 25 mg, oral, Daily metoprolol tartrate, 50 mg, oral, Once pantoprazole, 40 mg, oral, QAM AC sodium chloride, 3 mL, intravenous, Q12H JABARI Infusions: dextrose 5 % in water, 100 mL/hr sodium chloride 0.9 %, 20 mL/hr As Needed: acetaminophen calcium gluconate calcium gluconate calcium gluconate dextrose dextrose 5 % in water dextrose 50 % in water (D50W) glucagon (human recombinant) magnesium sulfate magnesium sulfate ondansetron potassium chloride OR potassium chloride sennosides-docusate sodium sodium phosphate IV OR sodium phosphate IV - central line OR sod phos di, mono-K phos mono sodium chloride sodium chloride sodium chloride 0.9 % Allergies: Patient has no known allergies. Labs Recent Results (from the past 24 hour(s)) CBC auto differential Collection Time: 10/20/23 11:25 PM Result Value Ref Range White Blood Cells 10.1 4.0 - 11.0 X10E9/L RBC count 5.22 4.10 - 5.70 X10E12/L Hemoglobin 15.5 13.0 - 17.0 g/dL Hematocrit 45.4 39 - 49 % MCV 87 80 - 100 fL MCH 29.6 27 - 34 pg MCHC 34.1 32 - 36 g/dL RDW 14.4 11.5 - 15.0 % Platelets 351 150 - 450 X10E9/L MPV 7.5 7 - 12 fL % neutrophils 47.5 % % lymphocytes 39.5 % % monocytes 9.4 % % eosinophils 2.2 % % Basophils 1.4 % Neutrophils Absolute (A) 4.8 1.5 - 6.6 X10E9/L Lymphocytes Absolute 4.0 (H) 1.0 - 3.5 X10E9/L Monocytes Absolute 0.9 0 - 0.9 X10E9/L Eosinophils Absolute 0.2 0.0 - 0.4 X10E9/L Basophils Absolute 0.1 0.0 - 0.2 X10E9/L Protime & INR Collection Time: 10/20/23 11:25 PM Result Value Ref Range Protime 11.5 9.8 - 13.2 sec Inr 1.0 0.8 - 1.1 APTT Collection Time: 10/20/23 11:25 PM Result Value Ref Range aPTT 34 26 - 37 sec Basic Metabolic Panel Collection Time: 10/20/23 11:25 PM Result Value Ref Range Sodium 138 134 - 146 mmol/L Potassium, Bld 3.7 3.5 - 5.0 mmol/L Chloride 108 98 - 109 mmol/L CO2 21 (L) 22 - 32 mmol/L Anion gap 9 5 - 15 mmol/L BUN 22 5 - 23 mg/dL Creatinine 0.94 0.70 - 1.20 mg/dL Glucose 121 (H) 65 - 99 mg/dL Calcium 9.3 8.5 - 10.5 mg/dL eGFR (CKD-EPI)non-race dependent >90 >59 ml/min/1.73sq.m Troponin I Collection Time: 10/20/23 11:25 PM Result Value Ref Range Troponin I <0.01 0.00 - 0.04 ng/mL Magnesium Collection Time: 10/20/23 11:25 PM Result Value Ref Range Magnesium 2.3 1.8 - 2.6 mg/dL Digoxin level Collection Time: 10/20/23 11:25 PM Result Value Ref Range Digoxin Lvl <0.2 (L) 0.8 - 2.0 ng/mL Thyroid profile includes TSH FT4 Collection Time: 10/20/23 11:25 PM Result Value Ref Range TSH 2.27 0.49 - 4.67 uIU/mL T4, free 0.68 0.61 - 1.60 ng/dL Drug Screen, Urine Collection Time: 10/20/23 11:42 PM Result Value Ref Range Amphetamine/methamphetamine Negative Negative^Negative Barbiturate Screen, Ur Negative Negative^Negative Benzodiazepine Screen, Urine Negative Negative^Negative THC, urine Negative Negative^Negative Cocaine (metabolite) Negative Negative^Negative Opiate Quant, Ur Negative Negative^Negative Phencyclidine Negative Negative^Negative Oxycodone Negative Negative^Negative Methadone Negative Negative^Negative Ecstasy Negative Negative^Negative Troponin I Collection Time: 10/21/23 12:43 PM Result Value Ref Range Troponin I <0.01 0.00 - 0.04 ng/mL Radiology X-ray chest 1 view Result Date: 10/20/2023 Narrative: Single view chest History: AFib. Chest pain. Comparison: None Findings: Single portable view of the chest. Cardiac silhouette is normal in size. Trachea midline. Calcified nodule right upper lobe measuring 10 mm, likely benign granuloma. No large pleural effusion. No pneumothorax. Impression: 1. No acute findings. 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 Cardiology consult. Echocardiogram ordered. Cardiology following: Restart metoprolol 25 mg b.i.d.. Restart Eliquis. Three doses of digoxin given in emergency department. One time extra dose of metoprolol of 50 mg ordered 4 hours post digoxin. Patient unable to get medications since he has been incarcerated. Patient states he was taking a beta-jolly in his Eliquis prior to being incarcerated. Admission orders placed and home medications reconciled. DVT prophylaxis: EPC's and Eliquis. GI prophylaxis. Protonix PT/OT to evaluate and treat. DC planning: Likely discharge tomorrow. Awaiting echocardiogram results. GRANT Angeles, 10/21/2023 3:34 PM [facility] Hospitalists 7AM-7PM: Message rounding BETY in [employer] or page through [employer]. 7PM-7AM: Page on-call BETY through our [employer] service, . This note is dictated with the use of M*Modal. Please note that this dictation was completed with computer voice recognition software. Quite often unanticipated grammatical, syntax, homophones, and other interpretive errors are inadvertently transcribed by the computer software. Please disregard these errors. Please excuse any errors that have escaped final proofreading. GRANT Angeles 10/21/23 5420 Attending Addendum: I Dr Arie Foley, personally performed a face to face diagnostic evaluation on this patient. I have reviewed the note authored by the advance practice provider including history, review of systems, physical examination, medical decision making and agree with the assessment and plan as written. I have seen and evaluated the patient,I have repeated the mcadams portions of the physical exam and concur with the BETY findings.I have reviewed all laboratory findings and imaging reprts/films.I agree with the plan as noted. [facility] 10-21-2023 History and physical note Images from the original note were not included. [facility] HOSPITALISTS Patrice Becerra, MD Lucia Pena, MD Devyn Vick, MD Ariana Velazquez, MD Enrico Chowdhury, MD Reyna Dye, MD Arie Foley, MD Michelle Mills, MD Inessa Anglin, ADMISSIONS SUPERVISOR Mouna Jeffrey, ADMISSIONS SUPERVISOR Susanne Oneil, ADMISSIONS SUPERVISOR Lorenza Tovamunirajenny, ADMISSIONS SUPERVISOR Dia Monique, ADMISSIONS SUPERVISOR Gilma Vivien, ADMISSIONS SUPERVISOR Sejal Ezio, ADMISSIONS SUPERVISOR Radha Marycruz, ADMISSIONS SUPERVISOR El Dobson, ADMISSIONS SUPERVISOR Lois Ewing, ADMISSIONS SUPERVISOR Aleida Payton, ADMISSIONS SUPERVISOR Elisa Moreno, ADMISSIONS SUPERVISOR Nat Sotelo, ADMISSIONS SUPERVISOR John Hong, [facility] Sanjuana Flores, ADMISSIONS SUPERVISOR Aleida Almaraz, [facility] Bianca Lambert, [facility] Josue Cortez, [facility] Medicine History & Physical Patient: Regis Horta Date of : 1970 Room: 04/23 PCP: NO PCP, NO PCP Admission date: 10/20/2023 11:09 PM Encounter date: 10/21/23 SUBJECTIVE Regis Horta is a 53 y.o. male who presents with Chest discomfort. Pt has been in correction which has prevented him from being able to take his medications for his atrial fibrillation. Pt had two stents placed by sebastian sykes around 7 months ago. Pt is a diagnosed diabetic in which he takes Eliquis for. Though he has not been able to take it due to his incarnation. ER Course: Case was reviewed with plastering supervisor, Dr. Ko. Agrees with care plan to continue IV Lopressor therapy. If the patient does not become rate controlled with this he would recommend digoxin loading. Will follow in consultation. He would like the patient admitted to the hospitalist service. No improvement in heart rate with additional lopressor doses. Sign out was that patient may need digoxin. Gave 1 dose 2.5 mcg per kg with slight improvement from the 160s to 130s to 140s. Will give additional dose since this is on the lower side of a loading dose Chief Complaint Patient presents with Atrial Fibrillation Assoc with SOB and chest tightness. HR 140-180s. Pt has hx of AFIb and states he has adverse reaction to cardizem. 2030 he received ASA Allergies: Patient has no known allergies. Prior to Admission medications Not on File Past Medical History: Patient has a past medical history of A-fib ([facility] Past Surgical History: Patient has no past surgical history on file. Family History: Patient's family history is not on file. Social History: Patient reports that he has been smoking cigarettes. He has been smoking an average of 1 pack per day. He does not have any smokeless tobacco history on file. He reports that he does not currently use alcohol. He reports current drug use. Drug: Methamphetamines. Review of Systems Review of Systems Constitutional: Negative for activity change, appetite change, chills, diaphoresis, fatigue and fever. HENT: Negative for tinnitus and trouble swallowing. Eyes: Negative for visual disturbance. Respiratory: Negative for cough, chest tightness, shortness of breath and wheezing. Cardiovascular: Positive for palpitations. Negative for chest pain and leg swelling. Gastrointestinal: Negative for abdominal pain, diarrhea, nausea and vomiting. Genitourinary: Negative for difficulty urinating. Skin: Negative for rash. Neurological: Negative for dizziness, syncope, speech difficulty, weakness, light-headedness, numbness and headaches. Psychiatric/Behavioral: Negative for sleep disturbance. OBJECTIVE BP 108/84 Pulse (!) 118 Temp 36.7 C (98.1 F) Resp 20 Ht 157.5 cm (5' 2 ) Wt 68 kg (150 lb) SpO2 97% BMI 27.44 kg/m Intake/Output Summary (Last 24 hours) at 10/21/2023 1534 Last data filed at 10/21/2023 1327 Gross per 24 hour Intake -- Output 500 ml Net -500 ml Physical Exam Physical Exam Vitals and nursing note reviewed. Constitutional: General: He is not in acute distress. HENT: Head: Normocephalic and atraumatic. Right Ear: External ear normal. Left Ear: External ear normal. Nose: Nose normal. Mouth/Throat: Mouth: Mucous membranes are moist. Pharynx: Oropharynx is clear. Eyes: Extraocular Movements: Extraocular movements intact. Pupils: Pupils are equal, round, and reactive to light. Neck: Vascular: No carotid bruit or JVD. Cardiovascular: Rate and Rhythm: Tachycardia present. Rhythm irregular. Pulses: Normal pulses. Heart sounds: Murmur heard. 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 Pulmonary: Effort: Pulmonary effort is normal. Breath sounds: Normal breath sounds. Abdominal: General: Bowel sounds are normal. Palpations: Abdomen is soft. Tenderness: There is no abdominal tenderness. There is no right CVA tenderness or left CVA tenderness. Musculoskeletal: Right lower leg: No edema. Left lower leg: No edema. Lymphadenopathy: Cervical: No cervical adenopathy. Skin: General: Skin is warm and dry. Capillary Refill: Capillary refill takes less than 2 seconds. Neurological: General: No focal deficit present. Mental Status: He is alert and oriented to person, place, and time. Psychiatric: Mood and Affect: Mood normal. Behavior: Behavior normal. Thought Content: Thought content normal. Judgment: Judgment normal. Medications Scheduled: apixaban, 5 mg, oral, BID metoprolol succinate XL, 25 mg, oral, Daily metoprolol tartrate, 50 mg, oral, Once pantoprazole, 40 mg, oral, QAM AC sodium chloride, 3 mL, intravenous, Q12H JABARI Infusions: dextrose 5 % in water, 100 mL/hr sodium chloride 0.9 %, 20 mL/hr As Needed: acetaminophen calcium gluconate calcium gluconate calcium gluconate dextrose dextrose 5 % in water dextrose 50 % in water (D50W) glucagon (human recombinant) magnesium sulfate magnesium sulfate ondansetron potassium chloride OR potassium chloride sennosides-docusate sodium sodium phosphate IV OR sodium phosphate IV - central line OR sod phos di, mono-K phos mono sodium chloride sodium chloride sodium chloride 0.9 % Allergies: Patient has no known allergies. Labs Recent Results (from the past 24 hour(s)) CBC auto differential Collection Time: 10/20/23 11:25 PM Result Value Ref Range White Blood Cells 10.1 4.0 - 11.0 X10E9/L RBC count 5.22 4.10 - 5.70 X10E12/L Hemoglobin 15.5 13.0 - 17.0 g/dL Hematocrit 45.4 39 - 49 % MCV 87 80 - 100 fL MCH 29.6 27 - 34 pg MCHC 34.1 32 - 36 g/dL RDW 14.4 11.5 - 15.0 % Platelets 351 150 - 450 X10E9/L MPV 7.5 7 - 12 fL % neutrophils 47.5 % % lymphocytes 39.5 % % monocytes 9.4 % % eosinophils 2.2 % % Basophils 1.4 % Neutrophils Absolute (A) 4.8 1.5 - 6.6 X10E9/L Lymphocytes Absolute 4.0 (H) 1.0 - 3.5 X10E9/L Monocytes Absolute 0.9 0 - 0.9 X10E9/L Eosinophils Absolute 0.2 0.0 - 0.4 X10E9/L Basophils Absolute 0.1 0.0 - 0.2 X10E9/L Protime & INR Collection Time: 10/20/23 11:25 PM Result Value Ref Range Protime 11.5 9.8 - 13.2 sec Inr 1.0 0.8 - 1.1 APTT Collection Time: 10/20/23 11:25 PM Result Value Ref Range aPTT 34 26 - 37 sec Basic Metabolic Panel Collection Time: 10/20/23 11:25 PM Result Value Ref Range Sodium 138 134 - 146 mmol/L Potassium, Bld 3.7 3.5 - 5.0 mmol/L Chloride 108 98 - 109 mmol/L CO2 21 (L) 22 - 32 mmol/L Anion gap 9 5 - 15 mmol/L BUN 22 5 - 23 mg/dL Creatinine 0.94 0.70 - 1.20 mg/dL Glucose 121 (H) 65 - 99 mg/dL Calcium 9.3 8.5 - 10.5 mg/dL eGFR (CKD-EPI)non-race dependent >90 >59 ml/min/1.73sq.m Troponin I Collection Time: 10/20/23 11:25 PM Result Value Ref Range Troponin I <0.01 0.00 - 0.04 ng/mL Magnesium Collection Time: 10/20/23 11:25 PM Result Value Ref Range Magnesium 2.3 1.8 - 2.6 mg/dL Digoxin level Collection Time: 10/20/23 11:25 PM Result Value Ref Range Digoxin Lvl <0.2 (L) 0.8 - 2.0 ng/mL Thyroid profile includes TSH FT4 Collection Time: 10/20/23 11:25 PM Result Value Ref Range TSH 2.27 0.49 - 4.67 uIU/mL T4, free 0.68 0.61 - 1.60 ng/dL Drug Screen, Urine Collection Time: 10/20/23 11:42 PM Result Value Ref Range Amphetamine/methamphetamine Negative Negative^Negative Barbiturate Screen, Ur Negative Negative^Negative Benzodiazepine Screen, Urine Negative Negative^Negative THC, urine Negative Negative^Negative Cocaine (metabolite) Negative Negative^Negative Opiate Quant, Ur Negative Negative^Negative Phencyclidine Negative Negative^Negative Oxycodone Negative Negative^Negative Methadone Negative Negative^Negative Ecstasy Negative Negative^Negative Troponin I Collection Time: 10/21/23 12:43 PM Result Value Ref Range Troponin I <0.01 0.00 - 0.04 ng/mL Radiology X-ray chest 1 view Result Date: 10/20/2023 Narrative: Single view chest History: AFib. Chest pain. Comparison: None Findings: Single portable view of the chest. Cardiac silhouette is normal in size. Trachea midline. Calcified nodule right upper lobe measuring 10 mm, likely benign granuloma. No large pleural effusion. No pneumothorax. Impression: 1. No acute findings. 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 Echocardiogram ordered. Cardiology following: Restart metoprolol 25 mg b.i.d.. Restart Eliquis. Three doses of digoxin given in emergency department. One time extra dose of metoprolol of 50 mg ordered 4 hours post digoxin. Patient unable to get medications since he has been incarcerated. Patient states he was taking a beta-jolly in his Eliquis prior to being incarcerated. Admission orders placed and home medications reconciled. DVT prophylaxis: EPC's and Eliquis. GI prophylaxis. Protonix PT/OT to evaluate and treat. DC planning: Likely discharge tomorrow. Awaiting echocardiogram results. El Dobson APRN-ETELVINA, 10/21/2023 3:34 PM [facility] Hospitalists 7AM-7PM: Message rounding BETY in [employer] or page through [employer]. 7PM-7AM: Page on-call BETY through our [employer] service, . This note is dictated with the use of M*Modal. Please note that this dictation was completed with computer voice recognition software. Quite often unanticipated grammatical, syntax, homophones, and other interpretive errors are inadvertently transcribed by the computer software. Please disregard these errors. Please excuse any errors that have escaped final proofreading. El Dobson, PTA-ADMISSIONS SUPERVISOR 10/21/23 2254 Attending Addendum: I Dr Arie Foley, personally performed a face to face diagnostic evaluation on this patient. I have reviewed the note authored by the advance practice provider including history, review of systems, physical examination, medical decision making and agree with the assessment and plan as written. I have seen and evaluated the patient,I have repeated the mcadams portions of the physical exam and concur with the BETY findings.I have reviewed all laboratory findings and imaging reprts/films.I agree with the plan as noted. documented in this encounter [facility] 10-21-2023 Consult note Associated Order (s): IP CONSULT TO CARDIOLOGY Images from the original note were not included. [facility] [address] [place] [address] HISTORY & PHYSICAL / CONSULT NOTE Regis Rae Horta PCP: NO PCP, NO PCP Date of Admission: 10/20/2023 Date of Consultation: 10/21/2023 7:02 AM Consult for atrial fibrillation with RVR SUBJECTIVE History of Present Illness: Regis Horta is a 53 y.o. male with no significant past medical history. Patient currently incarcerated. Presented to [facility] complaining of heart racing and shortness of breath. Stated that this has been going on for 2 days. Also reported on off chest discomfort and lightheadedness. Denies syncope or presyncope. Stated that he was diagnosed with atrial fibrillation long time ago and has 2 stents, does not follow with Cardiology. 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 Stated that he used to be heavy smoker, average of 2 packs per day for about 40 years, until 10 months ago he cut down to 6 cigarettes per day. Denied alcohol use. Reported use of methamphetamines, last use 09/24/2023. Patient stated that he was on Eliquis, last use about 3 or 4 weeks ago. At the time I visit patient resting complained bed. Asymptomatic. On arrival to the ED blood pressure 147/123, heart rate 159, rest of vitals within normal limits. EKG showed patient atrial fibrillation with RVR with ST depression likely rate related. Troponin negative x1. Thyroid function within normal limits. Potassium magnesium normal. CXR unremarkable. Patient received IV digoxin bolus 170 mcg x 2 in the ED. at the time I visit heart rate improved in the low 100s. In atrial fibrillation. Previous Medical History: Past Medical History: Diagnosis Date A-fib ([facility]) Previous Surgical History: History reviewed. No pertinent surgical history. Allergies: No Known Allergies Hospital Meds: Current Facility-Administered Medications Medication Dose Route Frequency Provider Last Rate Last Admin acetaminophen (TYLENOL) tablet 650 mg 650 mg oral Q4H PRN Aleida L Veselka, PTA-ADMISSIONS SUPERVISOR calcium gluconate 3,000 mg in sodium chloride 0.9 % 100 mL IVPB 3,000 mg intravenous PRN Aleida L Veselka, PTA-ADMISSIONS SUPERVISOR calcium gluconate 4,000 mg in sodium chloride 0.9 % 250 mL IVPB 4,000 mg intravenous PRN Aleida L Veselka, PTA-ADMISSIONS SUPERVISOR calcium gluconate IVPB 2000 mg/100 mL (20 mg/mL premix) 2,000 mg intravenous PRN Aleida L Veselka, PTA-ADMISSIONS SUPERVISOR dextrose (GLUTOSE) 40 % gel 15 g 15 g oral PRN Aleida L Veselka, PTA-ADMISSIONS SUPERVISOR dextrose 5 % (D5W) infusion 100 mL/hr intravenous Continuous PRN Aleida L Veselka, PTA-ADMISSIONS SUPERVISOR dextrose 50 % in water (D50W) 50% solution 25 mL 25 mL intravenous PRN Aleida L Veselka, PTA-ADMISSIONS SUPERVISOR glucagon HCL injection 1 mg 1 mg intramuscular PRN Aleida L Veselka, PTA-ADMISSIONS SUPERVISOR heparin (porcine) injection 5,000 Units 5,000 Units subcutaneous Q8H [facility] Aleida L Veselka, PTA-ADMISSIONS SUPERVISOR 5,000 Units at 10/21/23 0646 magnesium sulfate IVPB 2000 mg/50 mL in iso-osmotic water (40 mg/mL premix) 2,000 mg intravenous PRN Aleida L Veselka, PTA-ADMISSIONS SUPERVISOR magnesium sulfate IVPB 4000 mg/100 mL in iso-osmotic water (40 mg/mL premix) 4,000 mg intravenous PRN Aleida L Veselka, PTA-ADMISSIONS SUPERVISOR ondansetron (PF) (ZOFRAN) injection 4 mg 4 mg intravenous Q8H PRN Aleida L Veselka, PTA-ADMISSIONS SUPERVISOR pantoprazole (PROTONIX) EC tablet 40 mg 40 mg oral QAM AC Aleida L Veselka, PTA-ADMISSIONS SUPERVISOR potassium chloride (KLOR-CON M 20) CR tablet 30-50 mEq 30-50 mEq oral PRN Aleida L Veselka, PTA-ADMISSIONS SUPERVISOR Or potassium chloride (KAYCIEL) 20 mEq/15 mL solution 30-50 mEq 30-50 mEq oral PRN Aleida L Veselka, PTA-ADMISSIONS SUPERVISOR sennosides-docusate sodium (SENOKOT-S) 8.6-50 mg 1 tablet 1 tablet oral Q12H PRN Aleida L Veselka, PTA-ADMISSIONS SUPERVISOR sodium phosphate 20 mmol in sodium chloride 0.9 % 250 mL IVPB 20 mmol intravenous PRN Aleida L Veselka, PTA-ADMISSIONS SUPERVISOR Or sodium phosphate 20 mmol in sodium chloride 0.9 % 100 mL IVPB 20 mmol intravenous PRN Aleida L Veselka, PTA-ADMISSIONS SUPERVISOR Or sod phos di, mono-K phos mono (K-PHOS NEUTRAL) 250 mg tablet 2 tablet 2 tablet oral PRN Aleida L Veselka, PTA-ADMISSIONS SUPERVISOR sodium chloride 0.9 % flush 3 mL 3 mL intravenous PRN Ernesto Leon MD sodium chloride 0.9 % flush 3 mL 3 mL intravenous Q12H [facility] Ernesto Leon MD 3 mL at 10/21/23 0209 sodium chloride 0.9 % flush bag 25 mL intravenous PRN Aleida L Veselka, PTA-ADMISSIONS SUPERVISOR sodium chloride 0.9 % infusion 20 mL/hr intravenous Continuous PRN Aleida L Veselka, PTA-ADMISSIONS SUPERVISOR No current outpatient medications on file. Home Meds: Prior to Admission medications Not on File Social History: TOBACCO: reports that he has been smoking cigarettes. He has been smoking an average of 1 pack per day. He does not have any smokeless tobacco history on file. ETOH: reports that he does not currently use alcohol. DRUGS: reports current drug use. Drug: Methamphetamines. OCCUPATION: Family History: History reviewed. No pertinent family history. Review of Systems: Constitutional: there has been no unanticipated weight loss, no change in energy level, sleep pattern, or activity level. Eyes: No visual changes or diplopia, no scleral icterus. ENT: No Headaches, hearing loss or vertigo. No sore throat Cardiovascular: See HPI Respiratory: No cough or wheezing, no sputum production, no hematemesis. Gastrointestinal: No abdominal pain, + constipation, no diarrhea, no hematochezia, no melena. Genitourinary: No dysuria, trouble voiding, or hematuria Musculoskeletal: No gait disturbance, weakness or joint complaints Integumentary: No rash or pruritis Neurological: No headache, focal muscle weakness, focal numbness or tingling. Hematologic/Lymphatic: No abnormal bruising or bleeding, blood clots. Allergic/Immunologic: No nasal congestion or hives OBJECTIVE LAST LABS: CBC: Results from last 7 days Lab Units 10/20/23 2325 WBC X10E9/L 10.1 HEMOGLOBIN g/dL 15.5 HEMATOCRIT % 45.4 MCV fL 87 PLATELETS X10E9/L 351 BMP: Results from last 7 days Lab Units 10/20/23 2325 SODIUM mmol/L 138 POTASSIUM mmol/L 3.7 CHLORIDE mmol/L 108 CO2 mmol/L 21* BUN mg/dL 22 CREATININE mg/dL 0.94 CALCIUM mg/dL 9.3 MAGNESIUM mg/dL 2.3 PT/INR: Results from last 7 days Lab Units 10/20/23 2325 PROTIME sec 11.5 INR 1.0 APTT: MAG: Results from last 7 days Lab Units 10/20/23 2325 MAGNESIUM mg/dL 2.3 D Dimer: Troponin I Results from last 7 days Lab Units 10/20/23 2325 TROPONIN I ng/mL <0.01 ProBNP Lipid Panel: No results found for: CHOL , TRIG , HDL , CHOLHDLR Liver Panel: No results found for: ALB HgA1C: No results found for: HGBA1C ABG: RADIOLOGY: X-ray chest 1 view Result Date: 10/20/2023 Single view chest History: AFib. Chest pain. Comparison: None Findings: Single portable view of the chest. Cardiac silhouette is normal in size. Trachea midline. Calcified nodule right upper lobe measuring 10 mm, likely benign granuloma. No large pleural effusion. No pneumothorax. Impression: 1. No acute findings. Finalized by Lopez Quintanilla MD on 10/20/2023 11:55 PM PHYSICAL EXAM Admission Weight: Weight: 68 kg (150 lb) No intake/output data recorded. Weight change: Wt Readings from Last 3 Encounters: 10/20/23 68 kg (150 lb) Vitals: Vitals: 10/21/23 0313 10/21/23 0432 10/21/23 0445 10/21/23 0618 BP: (!) 153/107 138/76 (!) 110/99 Pulse: (!) 137 (!) 145 101 97 Resp: 12 16 Temp: SpO2: 97% 97% 97% Weight: Height: Admit Weight Weight: 68 kg (150 lb) Last 3 Weights Last 3 Weight Readings 10/20/23 2311 Weight: 68 kg (150 lb) Body mass index is 27.44 kg/m . INTAKE/OUTPUT No intake/output data recorded. No intake or output data in the 24 hours ending 10/21/23 0702 EKG: No results found. ECHO (Last) No results found. General appearance: Alert oriented and cooperative, in no acute distress Skin: Warm and dry to touch Head: Normocephalic, without obvious abnormality, atraumatic Eyes: Conjunctivae unremarkable, EOMs intact, sclera non icteric Neck: No JVD, no carotid bruit, neck supple, trachea midline Lungs: Clear to ausculation bilaterally, no use of accessory muscles. Heart:: RRR with normal S1 and S2 , no murmurs and no gallops. Abdomen: Soft, non-tender, bowel sounds normal Extremities: No edema Neurologic: Oriented to time, person and place, affect appropriate, no focal/major motor or sensory defects noted Psychiatric: Appropriate mood, memory and judgment ASSESSMENT Paroxysmal atrial fibrillation with RVR on home Eliquis CAD with hx of stents Hypertension Hx of prediabetes Tobacco abuse Methamphetamine use 09/2023 COPD PLAN -patient doing well and stable at the time I visit. Heart rate in the low 100s, atrial fibrillation on the monitor. -going to start Toprol XL 25 mg daily. -resume home Eliquis 5 mg b.i.d.. -echocardiogram for baseline cardiac structure and function. -check thyroid function. - trend troponin. -will follow-up. ANUEL BOWEN MD This note was completed using a voice dental technician apprentice system. Every effort was made to ensure accuracy. However, inadvertent computerized dental technician apprentice errors may be present. [employer] [facility] 10-21-2023 Consult note Associated Order (s): IP CONSULT TO CARDIOLOGY Images from the original note were not included. [facility] [address] [place] [address] HISTORY & PHYSICAL / CONSULT NOTE Regis Horta PCP: NO PCP, NO PCP Date of Admission: 10/20/2023 Date of Consultation: 10/21/2023 7:02 AM Consult for atrial fibrillation with RVR SUBJECTIVE History of Present Illness: Regis Horta is a 53 y.o. male with no significant past medical history. Patient currently incarcerated. Presented to [facility] complaining of heart racing and shortness of breath. Stated that this has been going on for 2 days. Also reported on off chest discomfort and lightheadedness. Denies syncope or presyncope. Stated that he was diagnosed with atrial fibrillation long time ago and has 2 stents, does not follow with Cardiology. 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 Stated that he used to be heavy smoker, average of 2 packs per day for about 40 years, until 10 months ago he cut down to 6 cigarettes per day. Denied alcohol use. Reported use of methamphetamines, last use 09/24/2023. Patient stated that he was on Eliquis, last use about 3 or 4 weeks ago. At the time I visit patient resting complained bed. Asymptomatic. On arrival to the ED blood pressure 147/123, heart rate 159, rest of vitals within normal limits. EKG showed patient atrial fibrillation with RVR with ST depression likely rate related. Troponin negative x1. Thyroid function within normal limits. Potassium magnesium normal. CXR unremarkable. Patient received IV digoxin bolus 170 mcg x 2 in the ED. at the time I visit heart rate improved in the low 100s. In atrial fibrillation. Previous Medical History: Past Medical History: Diagnosis Date A-fib (CMS-HCC) Previous Surgical History: History reviewed. No pertinent surgical history. Allergies: No Known Allergies Hospital Meds: Current Facility-Administered Medications Medication Dose Route Frequency Provider Last Rate Last Admin acetaminophen (TYLENOL) tablet 650 mg 650 mg oral Q4H PRN Aleida L Veselka, PTA-ADMISSIONS SUPERVISOR calcium gluconate 3,000 mg in sodium chloride 0.9 % 100 mL IVPB 3,000 mg intravenous PRN Aleida L Veselka, PTA-ADMISSIONS SUPERVISOR calcium gluconate 4,000 mg in sodium chloride 0.9 % 250 mL IVPB 4,000 mg intravenous PRN Aleida L Veselka, PTA-ADMISSIONS SUPERVISOR calcium gluconate IVPB 2000 mg/100 mL (20 mg/mL premix) 2,000 mg intravenous PRN Aleida L Veselka, PTA-ADMISSIONS SUPERVISOR dextrose (GLUTOSE) 40 % gel 15 g 15 g oral PRN Aleida L Veselka, PTA-ADMISSIONS SUPERVISOR dextrose 5 % (D5W) infusion 100 mL/hr intravenous Continuous PRN Aleida L Veselka, PTA-ADMISSIONS SUPERVISOR dextrose 50 % in water (D50W) 50% solution 25 mL 25 mL intravenous PRN Aleida L Veselka, PTA-ADMISSIONS SUPERVISOR glucagon HCL injection 1 mg 1 mg intramuscular PRN Aleida L Veselka, PTA-ADMISSIONS SUPERVISOR heparin (porcine) injection 5,000 Units 5,000 Units subcutaneous Q8H JABARI Aleida L Veselka, PTA-ADMISSIONS SUPERVISOR 5,000 Units at 10/21/23 0646 magnesium sulfate IVPB 2000 mg/50 mL in iso-osmotic water (40 mg/mL premix) 2,000 mg intravenous PRN Aleida L Veselka, PTA-ADMISSIONS SUPERVISOR magnesium sulfate IVPB 4000 mg/100 mL in iso-osmotic water (40 mg/mL premix) 4,000 mg intravenous PRN Aleida L Veselka, PTA-ADMISSIONS SUPERVISOR ondansetron (PF) (ZOFRAN) injection 4 mg 4 mg intravenous Q8H PRN Aleida L Veselka, PTA-ADMISSIONS SUPERVISOR pantoprazole (PROTONIX) EC tablet 40 mg 40 mg oral QAM AC Aleida L Veselka, PTA-ADMISSIONS SUPERVISOR potassium chloride (KLOR-CON M 20) CR tablet 30-50 mEq 30-50 mEq oral PRN Aleida L Veselka, PTA-ADMISSIONS SUPERVISOR Or potassium chloride (KAYCIEL) 20 mEq/15 mL solution 30-50 mEq 30-50 mEq oral PRN Aleida L Veselka, PTA-ADMISSIONS SUPERVISOR sennosides-docusate sodium (SENOKOT-S) 8.6-50 mg 1 tablet 1 tablet oral Q12H PRN Aleida L Veselka, PTA-ADMISSIONS SUPERVISOR sodium phosphate 20 mmol in sodium chloride 0.9 % 250 mL IVPB 20 mmol intravenous PRN Aleida L Veselka, PTA-ADMISSIONS SUPERVISOR Or sodium phosphate 20 mmol in sodium chloride 0.9 % 100 mL IVPB 20 mmol intravenous PRN Aleida L Veselka, PTA-ADMISSIONS SUPERVISOR Or sod phos di, mono-K phos mono (K-PHOS NEUTRAL) 250 mg tablet 2 tablet 2 tablet oral PRN Aleida L Veselka, PTA-ADMISSIONS SUPERVISOR sodium chloride 0.9 % flush 3 mL 3 mL intravenous PRN Ernesto Leon MD sodium chloride 0.9 % flush 3 mL 3 mL intravenous Q12H [facility] Ernesto Leon MD 3 mL at 10/21/23 0209 sodium chloride 0.9 % flush bag 25 mL intravenous PRN Aleida L Veselka, PTA-ADMISSIONS SUPERVISOR sodium chloride 0.9 % infusion 20 mL/hr intravenous Continuous PRN Aleida L Veselka, PTA-ADMISSIONS SUPERVISOR No current outpatient medications on file. Home Meds: Prior to Admission medications Not on File Social History: TOBACCO: reports that he has been smoking cigarettes. He has been smoking an average of 1 pack per day. He does not have any smokeless tobacco history on file. ETOH: reports that he does not currently use alcohol. DRUGS: reports current drug use. Drug: Methamphetamines. OCCUPATION: Family History: History reviewed. No pertinent family history. Review of Systems: Constitutional: there has been no unanticipated weight loss, no change in energy level, sleep pattern, or activity level. Eyes: No visual changes or diplopia, no scleral icterus. ENT: No Headaches, hearing loss or vertigo. No sore throat Cardiovascular: See HPI Respiratory: No cough or wheezing, no sputum production, no hematemesis. Gastrointestinal: No abdominal pain, + constipation, no diarrhea, no hematochezia, no melena. Genitourinary: No dysuria, trouble voiding, or hematuria Musculoskeletal: No gait disturbance, weakness or joint complaints Integumentary: No rash or pruritis Neurological: No headache, focal muscle weakness, focal numbness or tingling. Hematologic/Lymphatic: No abnormal bruising or bleeding, blood clots. Allergic/Immunologic: No nasal congestion or hives OBJECTIVE LAST LABS: CBC: Results from last 7 days Lab Units 10/20/23 2325 WBC X10E9/L 10.1 HEMOGLOBIN g/dL 15.5 HEMATOCRIT % 45.4 MCV fL 87 PLATELETS X10E9/L 351 BMP: Results from last 7 days Lab Units 10/20/23 2325 SODIUM mmol/L 138 POTASSIUM mmol/L 3.7 CHLORIDE mmol/L 108 CO2 mmol/L 21* BUN mg/dL 22 CREATININE mg/dL 0.94 CALCIUM mg/dL 9.3 MAGNESIUM mg/dL 2.3 PT/INR: Results from last 7 days Lab Units 10/20/23 2325 PROTIME sec 11.5 INR 1.0 APTT: MAG: Results from last 7 days Lab Units 10/20/23 2325 MAGNESIUM mg/dL 2.3 D Dimer: Troponin I Results from last 7 days Lab Units 10/20/23 2325 TROPONIN I ng/mL <0.01 ProBNP Lipid Panel: No results found for: CHOL , TRIG , HDL , CHOLHDLR Liver Panel: No results found for: ALB HgA1C: No results found for: HGBA1C ABG: RADIOLOGY: X-ray chest 1 view Result Date: 10/20/2023 Single view chest History: AFib. Chest pain. Comparison: None Findings: Single portable view of the chest. Cardiac silhouette is normal in size. Trachea midline. Calcified nodule right upper lobe measuring 10 mm, likely benign granuloma. No large pleural effusion. No pneumothorax. Impression: 1. No acute findings. Finalized by Lopez Quintanilla MD on 10/20/2023 11:55 PM PHYSICAL EXAM Admission Weight: Weight: 68 kg (150 lb) No intake/output data recorded. Weight change: Wt Readings from Last 3 Encounters: 10/20/23 68 kg (150 lb) Vitals: Vitals: 10/21/23 0313 10/21/23 0432 10/21/23 0445 10/21/23 0618 BP: (!) 153/107 138/76 (!) 110/99 Pulse: (!) 137 (!) 145 101 97 Resp: 12 16 Temp: SpO2: 97% 97% 97% Weight: Height: Admit Weight Weight: 68 kg (150 lb) Last 3 Weights Last 3 Weight Readings 10/20/23 2311 Weight: 68 kg (150 lb) Body mass index is 27.44 kg/m . INTAKE/OUTPUT No intake/output data recorded. No intake or output data in the 24 hours ending 10/21/23 0702 EKG: No results found. ECHO (Last) No results found. General appearance: Alert oriented and cooperative, in no acute distress Skin: Warm and dry to touch Head: Normocephalic, without obvious abnormality, atraumatic Eyes: Conjunctivae unremarkable, EOMs intact, sclera non icteric Neck: No JVD, no carotid bruit, neck supple, trachea midline Lungs: Clear to ausculation bilaterally, no use of accessory muscles. Heart:: RRR with normal S1 and S2 , no murmurs and no gallops. Abdomen: Soft, non-tender, bowel sounds normal Extremities: No edema Neurologic: Oriented to time, person and place, affect appropriate, no focal/major motor or sensory defects noted Psychiatric: Appropriate mood, memory and judgment ASSESSMENT Paroxysmal atrial fibrillation with RVR on home Eliquis CAD with hx of stents Hypertension Hx of prediabetes Tobacco abuse Methamphetamine use 09/2023 COPD PLAN -patient doing well and stable at the time I visit. Heart rate in the low 100s, atrial fibrillation on the monitor. -going to start Toprol XL 25 mg daily. -resume home Eliquis 5 mg b.i.d.. -echocardiogram for baseline cardiac structure and function. -check thyroid function. - trend troponin. -will follow-up. ANUEL BOWEN MD This note was completed using a voice dental technician apprentice system. Every effort was made to ensure accuracy. However, inadvertent computerized dental technician apprentice errors may be present. documented in this encounter [facility] 10-21-2023 Emergency department Note Pt medicated per orders and updated on POC. No further needs at this time. Call light in reach. Pt updated on POC [facility] 10-21-2023 Emergency department Note Pt medicated per orders and updated on POC. No further needs at this time. Call light in reach. Pt updated on POC Pt medicated per orders and updated on POC. No further needs at this time. Call light in reach and officer at bedside. Pt medicated per orders and updated on POC. No s/sym of distress. No further needs at this time. Officer at bedside. Call light in reach Dr Ko notified of HR. Verbal order for 50mg Lopressor and 5mg IVP and Cardiology will see pt in the AM Aleida ESPINOZA notified that pts HR is still in afib and no maintenance rate control meds ordered for pt and cardiology notified as well Dr Ko PT medicated again with 2nd dose of digoxin for HR. Pt is asymptomatic at this time with guard at bedside. No further needs at this time call light in reach Pt medicated per orders and updated on POC. no further needs at this time. Carbon Brush Maker at door. Urine sent. Pt medicated with total of 10mg (5mg x2 doses) for Afib. Images from the original note were not included. History No chief complaint on file. Initial evaluation performed at 11:[address] Leon. Patient is a 53 y.o. female who presents to the ED for evaluation of Chest discomfort. Pt has been in correction which has prevented him from being able to take his medications for his atrial fibrillation. Pt had two stents placed by sebastian sykes around 7 months ago. Pt is a diagnosed diabetic in which he takes Eliquis for. Though he has not been able to take it due to his incarnation. History provided by: Patient speech therapist technician used?: No There is no problem list on file for this patient. No past medical history on file. No past surgical history on file. Travel Screening Question Response Have you been in contact with someone who was sick? No / Unsure Do you have any of the following new or worsening symptoms? None of these Have you traveled internationally or domestically in the last month? No Travel History Travel since 09/19/23 No documented travel since 09/19/23 No family history on file. Social History Substance and Sexual Activity Drug Use Not on file Review of Systems Respiratory: Positive for chest tightness and shortness of breath. Physical Exam ED Triage Vitals Temp Pulse Resp BP SpO2 -- -- -- -- -- Temp src Heart Rate Source Patient Position BP Location FiO2 (%) -- -- -- -- -- There were no vitals filed for this visit. Physical Exam Constitutional: Appearance: Normal appearance. HENT: Head: Normocephalic and atraumatic. Right Ear: There is no impacted cerumen. Left Ear: There is no impacted cerumen. Nose: Nose normal. No congestion. Mouth/Throat: Mouth: Mucous membranes are moist. Pharynx: Oropharynx is clear. Eyes: Extraocular Movements: Extraocular movements intact. Conjunctiva/sclera: Conjunctivae normal. Cardiovascular: Rate and Rhythm: Tachycardia present. Rhythm irregular. Pulses: Normal pulses. Heart sounds: Normal heart sounds. Pulmonary: Effort: Pulmonary effort is normal. Breath sounds: Normal breath sounds. Abdominal: General: Abdomen is flat. Bowel sounds are normal. Musculoskeletal: General: No swelling. Normal range of motion. Cervical back: Normal range of motion and neck supple. Skin: General: Skin is warm and dry. Neurological: Mental Status: He is alert. Procedure Procedures Re-Evaluation Re-Evaluation ED Course ED Course as of 10/22/23 1443 Sun Oct 20, 2023 2333 No appreciable change in heart rate with 5 mg of IV Lopressor. Additional 5 mg of IV Lopressor ordered. [RS] 2355 Case was reviewed with plastering supervisor, Dr. Ko. Agrees with care plan to continue IV Lopressor therapy. If the patient does not become rate controlled with this he would recommend digoxin loading. Will follow in consultation. He would like the patient admitted to the hospitalist service. [RS] 2356 Case reviewed with hospitalist ENGINEERING TEACHER via [employer] who has accepted this patient as an admission to her service. [RS] [facility] Oct 21, 2023 0153 No improvement in heart rate with additional lopressor doses. Sign out was that patient may need digoxin. Gave 1 dose 2.5 mcg per kg with slight improvement from the 160s to 130s to 140s. Will give additional dose since this is on the lower side of a loading dose [KM] 1716 As this patient remains boarding in the emergency department I did round on him. He is resting comfortably with no complaints or concerns at this time. [RS] ED Course User Index [KM] Lavonne Lucio DO [RS] Ernesto Leon MD Clinical Impressions as of 10/22/23 1443 Atrial fibrillation with rapid ventricular response (CMS-HCC) Paroxysmal atrial fibrillation (CMS-HCC) MDM Medical Decision Making Patient is a 53-year-old male with a history of AFib who has been incarcerated for the last 3 weeks and did not have access to any of his medications, during that time to include his digoxin, Eliquis, Plavix. Patient reports that he would 2 stents placed in his heart seven months ago. Patient indicates that he 1st noticed the palpitations intermittently yesterday. They became constant tonight around 9:00 p.m.. Patient indicates that he has a history of recurrent atrial fibrillation. He indicates that he is done very poorly with Cardizem in the past. It has caused precipitous blood pressure drops. He believes he has done well with beta-blockers previously. On clinical examination he appears to be in AFib with RVR. IV fluid bolus ordered. I have ordered 5 mg of IV Lopressor. Anticipate cardiology consultation. Differential diagnosis: AFib with RVR, medication noncompliance, ACS, electrolyte abnormality, arrhythmia Amount and/or Complexity of Data Reviewed Labs: ordered. Radiology: ordered. ECG/medicine tests: ordered. Risk Prescription drug management. Provider Statement By electronically signing this emergency patient record, the Emergency Physician/ENGINEERING TEACHER/PA-C attests that all entries made into the electronic medical record by shavon Hawkins prior to the Physician/ENGINEERING TEACHER/PA-C signature reflect an accurate accounting of the evaluation and care rendered by that Emergency Physician/ENGINEERING TEACHER/PA-C. The Emergency Physician/ENGINEERING TEACHER/PA-C assumes full responsibility for those entries. The Emergency Physician/ENGINEERING TEACHER/PA-C also attests that any patient testing or treatment that was instituted by nursing staff in accordance to Emergency Department Preemptive Guidelines have been reviewed and unless so stated elsewhere in this patient chart, the Physician/ENGINEERING TEACHER/PA-C agrees with the testing and care provided. No Additional Attestations Donal Nick 10/20/23 2318 Donal Nick 10/20/23 2318 Ernesto Leon MD 10/20/23 2321 Donal Nick 10/20/23 2332 Ernesto Leon MD 10/21/23 2202 documented in this encounter [facility] 10-21-2023 Emergency department Note Pt medicated per orders and updated on POC. No further needs at this time. Call light in reach and officer at bedside. [facility] 10-21-2023 Emergency department Note Pt medicated per orders and updated on POC. No s/sym of distress. No further needs at this time. Officer at bedside. Call light in reach [facility] 10-21-[address] Ko notified of HR. Verbal order for 50mg Lopressor and 5mg IVP and Cardiology will see pt in the AM [facility] 10-21-2023 Emergency department Note Aleida ESPINOZA notified that pts HR is still in afib and no maintenance rate control meds ordered for pt and cardiology notified as well Dr Ko [facility] 10-21-2023 Emergency department Note PT medicated again with 2nd dose of digoxin for HR. Pt is asymptomatic at this time with guard at bedside. No further needs at this time call light in reach [facility] 10-20-2023 Emergency department Note Pt medicated per orders and updated on POC. no further needs at this time. Carbon Brush Maker at door. Urine sent. Pt medicated with total of 10mg (5mg x2 doses) for Afib. [facility] 10-20-2023 Physician Emergency department Note Images from the original note were not included. History No chief complaint on file. Initial evaluation performed at 11:[address] Leon. Patient is a 53 y.o. female who presents to the ED for evaluation of Chest discomfort. Pt has been in correction which has prevented him from being able to take his medications for his atrial fibrillation. Pt had two stents placed by sebastian sykes around 7 months ago. Pt is a diagnosed diabetic in which he takes Eliquis for. Though he has not been able to take it due to his incarnation. History provided by: Patient speech therapist technician used?: No There is no problem list on file for this patient. No past medical history on file. No past surgical history on file. Travel Screening Question Response Have you been in contact with someone who was sick? No / Unsure Do you have any of the following new or worsening symptoms? None of these Have you traveled internationally or domestically in the last month? No Travel History Travel since 09/19/23 No documented travel since 09/19/23 No family history on file. Social History Substance and Sexual Activity Drug Use Not on file Review of Systems Respiratory: Positive for chest tightness and shortness of breath. Physical Exam ED Triage Vitals Temp Pulse Resp BP SpO2 -- -- -- -- -- Temp src Heart Rate Source Patient Position BP Location FiO2 (%) -- -- -- -- -- There were no vitals filed for this visit. Physical Exam Constitutional: Appearance: Normal appearance. HENT: Head: Normocephalic and atraumatic. Right Ear: There is no impacted cerumen. Left Ear: There is no impacted cerumen. Nose: Nose normal. No congestion. Mouth/Throat: Mouth: Mucous membranes are moist. Pharynx: Oropharynx is clear. Eyes: Extraocular Movements: Extraocular movements intact. Conjunctiva/sclera: Conjunctivae normal. Cardiovascular: Rate and Rhythm: Tachycardia present. Rhythm irregular. Pulses: Normal pulses. Heart sounds: Normal heart sounds. Pulmonary: Effort: Pulmonary effort is normal. Breath sounds: Normal breath sounds. Abdominal: General: Abdomen is flat. Bowel sounds are normal. Musculoskeletal: General: No swelling. Normal range of motion. Cervical back: Normal range of motion and neck supple. Skin: General: Skin is warm and dry. Neurological: Mental Status: He is alert. Procedure Procedures Re-Evaluation Re-Evaluation ED Course ED Course as of 10/22/23 1443 Sun Oct 20, 2023 2333 No appreciable change in heart rate with 5 mg of IV Lopressor. Additional 5 mg of IV Lopressor ordered. [RS] 9122 Case was reviewed with plastering supervisor, Dr. Ko. Agrees with care plan to continue IV Lopressor therapy. If the patient does not become rate controlled with this he would recommend digoxin loading. Will follow in consultation. He would like the patient admitted to the hospitalist service. [RS] 3895 Case reviewed with hospitalist ENGINEERING TEACHER via [employer] who has accepted this patient as an admission to her service. [RS] SatOct 21, 2023 0153 No improvement in heart rate with additional lopressor doses. Sign out was that patient may need digoxin. Gave 1 dose 2.5 mcg per kg with slight improvement from the 160s to 130s to 140s. Will give additional dose since this is on the lower side of a loading dose [KM] 1716 As this patient remains boarding in the emergency department I did round on him. He is resting comfortably with no complaints or concerns at this time. [RS] ED Course User Index [KM] Lavonne Lucio DO [RS] Ernesto Leon MD Clinical Impressions as of 10/22/23 1443 Atrial fibrillation with rapid ventricular response (CMS-HCC) Paroxysmal atrial fibrillation (CMS-HCC) MDM Medical Decision Making Patient is a 53-year-old male with a history of AFib who has been incarcerated for the last 3 weeks and did not have access to any of his medications, during that time to include his digoxin, Eliquis, Plavix. Patient reports that he would 2 stents placed in his heart seven months ago. Patient indicates that he 1st noticed the palpitations intermittently yesterday. They became constant tonight around 9:00 p.m.. Patient indicates that he has a history of recurrent atrial fibrillation. He indicates that he is done very poorly with Cardizem in the past. It has caused precipitous blood pressure drops. He believes he has done well with beta-blockers previously. On clinical examination he appears to be in AFib with RVR. IV fluid bolus ordered. I have ordered 5 mg of IV Lopressor. Anticipate cardiology consultation. Differential diagnosis: AFib with RVR, medication noncompliance, ACS, electrolyte abnormality, arrhythmia Amount and/or Complexity of Data Reviewed Labs: ordered. Radiology: ordered. ECG/medicine tests: ordered. Risk Prescription drug management. Provider Statement By electronically signing this emergency patient record, the Emergency Physician/ENGINEERING TEACHER/PA-C attests that all entries made into the electronic medical record by shavon Hawkins prior to the Physician/ENGINEERING TEACHER/PA-C signature reflect an accurate accounting of the evaluation and care rendered by that Emergency Physician/ENGINEERING TEACHER/PA-C. The Emergency Physician/ENGINEERING TEACHER/PA-C assumes full responsibility for those entries. The Emergency Physician/ENGINEERING TEACHER/PA-C also attests that any patient testing or treatment that was instituted by nursing staff in accordance to Emergency Department Preemptive Guidelines have been reviewed and unless so stated elsewhere in this patient chart, the Physician/ENGINEERING TEACHER/PA-C agrees with the testing and care provided. No Additional Attestations Donal Nick 10/20/23 2318 Donal Nick 10/20/23 2318 Ernesto Leon MD 10/20/23 2321 Donal Nick 10/20/23 2332 Ernesto Leon MD 10/21/23 2202 [facility] 2023 Hospital Discharge instructions Patient Education 2023 11:28:14 Steps to Quit Smoking Steps to Quit Smoking Smoking tobacco is the leading cause of preventable . It can affect almost every organ in the body. Smoking puts you and those around you at risk for developing many serious chronic diseases. Quitting smoking can be very challenging. Do not get discouraged if you are not successful the first time. Some people need to make many attempts to quit before they achieve long-term success. Do your best to stick to your quit plan, and talk with your health care provider if you have any questions or concerns. How do I get ready to quit? When you decide to quit smoking, create a plan to help you succeed. Before you quit: Pick a date to quit. Set a date within the next 2 weeks to give you time to prepare. Write down the reasons why you are quitting. Keep this list in places where you will see it often. Tell your family, friends, and co-workers that you are quitting. Support from people you are close to can make quitting easier. Talk with your health care provider about your options for quitting smoking. Find out what treatment options are covered by your health insurance. Identify people, places, things, and activities that make you want to smoke (triggers). Avoid them. What first steps can I take to quit smoking? Throw away all cigarettes at home, at work, and in your car. Throw away smoking accessories, such as ashtrays and lighters. Clean your car. Make sure to empty the ashtray. Clean your home, including curtains and carpets. What strategies can I use to quit smoking? Talk with your health care provider about combining strategies, such as taking medicines while you are also receiving in-person counseling. Using these two strategies together makes you more likely to succeed in quitting than if you used either strategy on its own. If you are or , talk with your health care provider about finding counseling or other support strategies to quit smoking. Do not take medicine to help you quit smoking unless your health care provider tells you to. Quit right away Quit smoking completely, instead of gradually reducing how much you smoke over a period of time. Stopping smoking right away may be more successful than gradually quitting. Attend in-person counseling to help you build problem-solving skills. You are more likely to succeed in quitting if you attend counseling sessions regularly. Even short sessions of 10 minutes can be effective. Take medicine You may take medicines to help you quit smoking. Some medicines require a prescription. You can also purchase [id number] medicines. Medicines may have nicotine in them to replace the nicotine in cigarettes. Medicines may: Help to stop cravings. Help to relieve withdrawal symptoms. Your health care provider may recommend: Nicotine patches, gum, or lozenges. Nicotine inhalers or sprays. Non-nicotine medicine that you take by mouth. Find resources Find resources and support systems that can help you quit smoking and remain smoke-free after you quit. These resources are most helpful when you use them often. They include: Online chats with a counselor. Telephone quitlines. Printed self-help materials. Support groups or group counseling. Text messaging programs. Mobile phone apps or applications. Use apps that can help you stick to your quit plan by providing reminders, tips, and encouragement. Examples of free services include Quit Guide from the CDC and smokefree.gov What can I do to make it easier to quit? Reach out to your family and friends for support and encouragement. Call telephone quitlines, such as 4-080-TYEG-NOW, reach out to support groups, or work with a counselor for support. Ask people who smoke to avoid smoking around you. Avoid places that trigger you to smoke, such as bars, parties, or smoke-break areas at work. Spend time with people who do not smoke. Lessen the stress in your life. Stress can be a smoking trigger for some people. To lessen stress, try: ?Exercising regularly. ?Doing deep-breathing exercises. ?Doing yoga. ?Meditating. What benefits will I see if I quit smoking? Over time, you should start to see positive results, such as: Improved sense of smell and taste. Decreased coughing and sore throat. Slower heart rate. Lower blood pressure. Clearer and healthier skin. The ability to breathe more easily. Fewer sick days. Summary Quitting smoking can be very challenging. Do not get discouraged if you are not successful the first time. Some people need to make many attempts to quit before they achieve long-term success. When you decide to quit smoking, create a plan to help you succeed. Quit smoking right away, not slowly over a period of time. Find resources and support systems that can help you quit smoking and remain smoke-free after you quit. This information is not intended to replace advice given to you by your health care provider. Make sure you discuss any questions you have with your health care provider. Document Revised: 08/24/2022 Document Reviewed: 08/24/2022 [employer] Patient Education 2022 [employer]. Follow Up Care 04/17/2023 16:38:20 With:SADIE LINDQUIST FAAFP, KYLE Lujan Address: When: Unknown Comments:return as otherwise [facility] [place] 12-11-2022 Hospital Discharge instructions Patient Education 12/11/2022 11:54:26 Prostate Cancer Screening Prostate Cancer Screening The prostate is a walnut-sized gland that is located below the bladder and in front of the rectum in males. The function of the prostate (prostate gland) is to add fluid to semen during ejaculation. Prostate cancer is the second most common type of cancer in men. A screening test for cancer is a test that is done before cancer symptoms start. Screening can help to identify cancer at an early stage, when the cancer can be treated more easily. The recommended prostate cancer screening test is a blood test called the prostate-specific antigen (PSA) test. PSA is a protein that is made in the prostate. As you age, your prostate naturally produces more PSA. Abnormally high PSA levels may be caused by: Prostate cancer. An enlarged prostate that is not caused by cancer (benign prostatic hyperplasia, BPH). This condition is very common in older men. A prostate gland infection (prostatitis). Medicines to assist with hair growth, such as finasteride. Depending on the PSA results, you may need more tests, such as: A physical exam to check the size of your prostate gland. Blood and imaging tests. A procedure to remove tissue samples from your prostate gland for testing (biopsy). Who should have screening? Screening recommendations vary based on age. If you are younger than age 40, screening is not recommended. If you are age 40 54 and you have no risk factors, screening is not recommended. If you are younger than age 55, ask your health care provider if you need screening if you have one of these risk factors: ?Being of -[place] descent. ?Having a family history of prostate cancer. If you are age 55 69, talk with your health care provider about your need for screening and how often screening should be done. If you are older than age 70, screening is not recommended. This is because the risks that screening can cause are greater than the benefits that it may provide (risks outweigh the benefits). If you are at high risk for prostate cancer, your health care provider may recommend that you have screenings more often or start screening at a younger age. You may be at high risk if you: Are older than age 55. Are -[place]ish. Have a father, brother, or uncle who has been diagnosed with prostate cancer. The risk may be higher if your family member's cancer occurred at an early age. What are the benefits of screening? There is a small chance that screening may lower your risk of dying from prostate cancer. The chance is small because prostate cancer is typically a slow-growing cancer, and most men with prostate cancer from a different cause. What are the risks of screening? The main risk of prostate cancer screening is diagnosing and treating prostate cancer that would never have caused any symptoms or problems (overdiagnosis and overtreatment). PSA screening cannot tell you if your PSA is high due to cancer or a different cause. A prostate biopsy is the only procedure to diagnose prostate cancer. Even the results of a biopsy may not tell you if your cancer needs to be treated. Slow-growing prostate cancer may not need any treatment other than monitoring, so diagnosing and treating it may cause unnecessary stress or other side effects. A prostate biopsy may also cause: Infection or fever. A false negative. This is a result that shows that you do not have prostate cancer when you actually do have prostate cancer. Questions to ask your health care provider When should I start prostate cancer screening? What is my risk for prostate cancer? How often do I need screening? What type of screening tests do I need? How do I get my test results? What do my results mean? Do I need treatment? Contact a health care provider if: You have difficulty urinating. You have pain when you urinate or ejaculate. You have blood in your urine or semen. You have pain in your back or in the area of your prostate. You have trouble getting or maintaining an erection (erectile dysfunction, ED). Summary Prostate cancer is a common type of cancer in men. The prostate (prostate gland) is located below the bladder and in front of the rectum. This gland adds fluid to semen during ejaculation. Prostate cancer screening may identify cancer at an early stage, when the cancer can be treated more easily. The prostate-specific antigen (PSA) test is the recommended screening test for prostate cancer. Discuss the risks and benefits of prostate cancer screening with your health care provider. If you are age 70 or older, screening is likely to lead to more risks than benefits (risks outweigh the benefits). This information is not intended to replace advice given to you by your health care provider. Make sure you discuss any questions you have with your health care provider. Document Released: 06/13/2018 Document Revised: 08/15/2018 Document Reviewed: 06/13/2018 [employer] Patient Education 2020 [employer]. Follow Up Care 12/10/2022 15:10:32 With:LUCIO LINDQUIST, Christy Neumann, URL Address: [address] [place], [place] [id number]- When: Unknown [facility] 12-03-2022 Hospital Discharge instructions Patient Education 12/03/2022 18:19:50 Health Risks of Smoking Health Risks of Smoking Smoking cigarettes is very bad for your health. Tobacco smoke has over 200 known poisons in it. It contains the poisonous gases nitrogen oxide and carbon monoxide. There are over 60 chemicals in tobacco smoke that cause cancer. Smoking is difficult to quit because a chemical in tobacco, called nicotine, causes addiction or dependence. When you smoke and inhale, nicotine is absorbed rapidly into the bloodstream through your lungs. Both inhaled and non-inhaled nicotine may be addictive. What are the risks of cigarette smoke? Cigarette smokers have an increased risk of many serious medical problems, including: Lung cancer. Lung disease, such as pneumonia, bronchitis, and emphysema. Chest pain (angina) and heart attack because the heart is not getting enough oxygen. Heart disease and peripheral blood vessel disease. High blood pressure (hypertension). Stroke. Oral cancer, including cancer of the lip, mouth, or voice box. Bladder cancer. Pancreatic cancer. Cervical cancer. complications, including premature . Stillbirths and smaller babies, defects, and genetic damage to sperm. Early menopause. Lower estrogen level for women. Infertility. Facial wrinkles. Blindness. Increased risk of broken bones (fractures). Senile dementia. Stomach ulcers and internal bleeding. Delayed wound healing and increased risk of complications during surgery. Even smoking lightly shortens your life expectancy by several years. Because of secondhand smoke exposure, children of smokers have an increased risk of the following: Sudden syndrome (SIDS). Respiratory infections. Lung cancer. Heart disease. Ear infections. What are the benefits of quitting? There are many health benefits of quitting smoking. Here are some of them: Within days of quitting smoking, your risk of having a heart attack decreases, your blood flow improves, and your lung capacity improves. Blood pressure, pulse rate, and breathing patterns start returning to normal soon after quitting. Within months, your lungs may clear up completely. Quitting for 10 years reduces your risk of developing lung cancer and heart disease to almost that of a nonsmoker. People who quit may see an improvement in their overall quality of life. How do I quit smoking? Smoking is an addiction with both physical and psychological effects, and longtime habits can be hard to change. Your health care provider can recommend: Programs and community resources, which may include group support, education, or talk therapy. Prescription medicines to help reduce cravings. Nicotine replacement products, such as patches, gum, and nasal sprays. Use these products only as directed. Do not replace cigarette smoking with electronic cigarettes, which are commonly called e-cigarettes. The safety of e-cigarettes is not known, and some may contain harmful chemicals. A combination of two or more of these methods. Where to find more information [employer]: www.lung.org [employer]: www.cancer.org Summary Smoking cigarettes is very bad for your health. Cigarette smokers have an increased risk of many serious medical problems, including several cancers, heart disease, and stroke. Smoking is an addiction with both physical and psychological effects, and longtime habits can be hard to change. By stopping right away, you can greatly reduce the risk of medical problems for you and your family. To help you quit smoking, your health care provider can recommend programs, community resources, prescription medicines, and nicotine replacement products such as patches, gum, and nasal sprays. This information is not intended to replace advice given to you by your health care provider. Make sure you discuss any questions you have with your health care provider. Document Released: 10/10/2005 Document Revised: 12/04/2018 Document Reviewed: 09/06/2017 [employer] Patient Education 2020 [employer]. Follow Up Care 11/26/2022 15:41:52 With:SADIE MELTONFP, KYLE Lujan Address: When: Unknown Comments:see referral, please update phone # and HIPAA [facility] [place] 11-21-2022 Evaluation + Plan note Extrac elmer from: Title:Procedure Note Heart & Vascular Author:Joelle coe MD, Ernesto Varner Date:11/21/22 Ordered: acetaminophen, 325 mg = 1 tab(s), Tab, Oral, q6hr PRN Pain 1-3 for 24 hour(s), Stop date 11/22/22 9:19:00 EST, Routine, Start date 11/21/22 9:20:00 EST, 11/21/22 9:20:00 EST acetaminophen, 650 mg = 2 tab(s), Tab, Oral, q6hr PRN Pain 1-3 for 24 hour(s), Stop date 11/22/22 9:19:00 EST, Routine, Start date 11/21/22 9:20:00 EST, 11/21/22 9:20:00 EST acetaminophen-oxycodone, 2 tab(s), Tab, Oral, q4hr PRN Pain 4-7 for 5 day(s), Stop date 11/26/22 9:19:00 EDT, Routine, Start date 11/21/22 9:20:00 EST aspirin, Tab-Chew, Misc, Once, Stop date 11/21/22 8:14:44 EST, Physician Stop, 11/21/22 8:14:44 EST aspirin, 324 mg = 4 tab(s), Tab-Chew, Chewed, Once, Stop date 11/21/22 8:17:00 EST, NOW, Start date 11/21/22 8:17:00 EST, 11/21/22 8:17:00 EST aspirin, 81 mg = 1 tab(s), Oral, Daily, # 30 tab(s), Refills(s) 3, Pharmacy: [facility]/pharmacy #[id number], 157, cm, 11/21/22 7:04:00 EST, Height/Length Dosing, 70.3, kg, 11/21/22 7:04:00 EST, Weight Dosing atorvastatin, 80 mg = 1 tab(s), Oral, Daily, # 30 tab(s), Refills(s) 3, Pharmacy: [facility]/pharmacy #[id number], 157, cm, 11/21/22 7:04:00 EST, Height/Length Dosing, 70.3, kg, 11/21/22 7:04:00 EST, Weight Dosing clopidogrel, Tab, Misc, Once, Stop date 11/21/22 9:15:28 EST, Physician Stop, 11/21/22 9:15:28 EST clopidogrel, 75 mg = 1 tab(s), Oral, Daily, # 90 tab(s), Refills(s) 3, Pharmacy: [facility]/pharmacy #[id number], 157, cm, 11/21/22 7:04:00 EST, Height/Length Dosing, 70.3, kg, 11/21/22 7:04:00 EST, Weight Dosing morphine, 2 mg = 1 mL, Injection, IV Push, q6hr PRN Chest pain for 5 day(s), Stop date 11/26/22 9:19:00 EDT, Routine, Start date 11/21/22 9:20:00 EST, 11/21/22 9:20:00 EST niCARdipine 20 mg + Sodium Chloride 0.9% intravenous solution 200 mL, 200 mL, IV, titrate per protocol, Routine, Start date 11/20/22 9:22:00 EST, Total volume (mL): 200, 70.3 kg, Use as directed for radial cocktail, 1.75, m2 Sodium Chloride 0.9% intravenous solution 1,000 mL, 1,000 mL, IV, 100 mL/hr, for 3 hour(s), Stop date 11/21/22 12:19:00 EST, Routine, Start date 11/21/22 9:20:00 EST, 10 hour(s), Total volume (mL): 1,000, 70.3 kg, 1.75, m2 verapamil, 2.5 mg = 1 mL, Soln-IV, IV Push, q2min PRN Other (see comment), Routine, Start date 11/20/22 9:22:00 EST, as directed for radial cocktail Basic Metabolic Panel Cardiac Diet Cardiac Monitoring Cardiac Rehab Assessment CBC w/ Indices Circulation Check Communication Order Communication Order Communication Order Communication Order Communication Order Communication Order Communication Order Communication Order Communication Order Physician to Nursing Communication Order Physician to Nursing CV Coronary IVUS FFR Initial ECG 12 Lead Adult ECG 12 Lead Adult Evaluate Need For Continued Telemetry Follow Up Appointment Follow Up Appointment Magnesium Level Notify Provider Notify Provider Notify Provider Notify Provider Vital Signs Oxygen Protocol Patient Education Patient Education Place in Status Site Check Troponin Up ad Hannah Vital Signs Future Appointments Appointment Date:12/05/2022 12:45:00 PM Scheduled Provider:Robin LINDQUIST, Ernesto Varner Location:[facility] Appointment Type:Cardiology Follow Up ([facility]) Future Scheduled Tests Laboratory* Basic Metabolic Panel 11/13/22 * CBC w/ Auto Diff 11/13/22 Radiology* CV Cardiovascular 11/13/22 [facility]03-08-2023 Hospital Discharge instructions Patient Education 11/21/2022 10:57:57 CV - Cardiovascular PCI Discharge Instructions (CUSTOM) [place], [place] Cardiovascular PCI DISCHARGE INSTRUCTIONS Diet: Resume pre-procedure diet. Increase water intake the next 2 days to flush dye out of the body. Activity: If radial access: Limit your activity today. Do not operate a vehicle, machinery or power tools. NO LIFTING OVER 3 POUNDS for 3 days. Do not bend your wrist for 24 hours. May resume driving in 24 hours. Let pain/discomfort guide your activity. If you are having pain, stop. No sexual activity for 1 week. Return to the Emergency Room if you have trouble breathing, walking or nausea and vomiting. Medications: Resume pre-procedure medication, unless otherwise directed. Hold the following medications for 48 hours post procedure: Actoplus MetGlucophageGlucophage XR GlucovanceAvandametFortamet Yia-isutukepqSzlvgiIcqo-ijshmuiqo GlumetzaJanumetMetaglip RiometGlycomet Minimal pain, soreness and/or discomfort is expected. If you are prescribed an aspirin and/or antiplatelet (such as Plavix, Brilinta or Effient) do NOT stop taking these medications for any reason without talking to your plastering supervisor Site Care: Do not remove dressing for 24 hours unless it becomes saturated, then replace. Keep site clean and dry; inspect site daily. Do not use any lotions, powders, or ointments at the groin or wrist site for 1 week. May shower 24 hours after the procedure. Clean site with soap and water. Pat dry and apply band aid. No tub baths, swimming or hot tubs for 3 days. Post Procedure: Soreness and tenderness to the site can last up to one week. Bruising may occur to site. A responsible adult should be with you for the first 24 hours after you arrive home. Keep follow-up appointment. Carry your stent card with you at all times. This provides information about your heart disease forany doctor who cares for you. No smoking for 24 hours as it increases the risk of developing blood clots. If you are interested in smoking cessation, contact [facility] at [phone], ext. [phone]. In the event you are unable to reach your physician, please call [facility] at [phone] and the sling operator will assist you. Seek Medicare Care for: Bleeding: Apply continuous pressure to the site and Call 911. Should the arm or leg become cold, numb, blue or white call your physician immediately. Signs of infection are redness, warmth, swelling, getting more sore, colored drainage, fever or chills Chest pain Blood in your urine or stool Black tarry stools Follow Up Care 11/14/2022 13:54:29 With:Ernesto Kelly Address: [address] [place], [place] [address] [address] Business (1) When:12/05/2022 12:45:00 [facility]02-08-2023 NoteOPERATIVE NOTE OPERATION DATE: 10/24/2022 PREOPERATIVE DIAGNOSIS: Rectal pain, change in bowel habits, rectal bleeding. POSTOPERATIVE DIAGNOSIS: Normal colonoscopy to cecum. PROCEDURE: Colonoscopy to cecum. SURGEON: Edward Urban M.D. ANESTHESIA: Monitored anesthesia care. ESTIMATED BLOOD LOSS: Zero. INDICATIONS AND CONSENT: Patient is a 52-year-old male with history of rectal pain and rectal bleeding, as well as lower abdominal pain. He was initially seen in May, but was unable to schedule colonoscopy at that time. His bleeding and rectal pain has resolved. He does have some intermittent constipation. Indications, risks, benefits, alternatives of proceeding with colonoscopy were explained extensively to the patient, including the risks of bleeding, colon perforation or anesthetic complications. All of his questions were answered. Informed consent was obtained. PROCEDURE: Patient brought to the operating room, placed in the left lateral decubitus position. Monitored anesthesia care was provided. Rectal exam was performed which revealed no masses or blood. The scope was inserted into the anal canal. Under direct visualization was advanced. With the aid of abdominal compression, it was advanced to the cecum where cecal markings were clearly identified. Upon withdrawal of the scope, mucosal surfaces were carefully examined. There was noted to be a fair prep with some liquid brown stool throughout the colon that was partially irrigated clear. There were no mass lesions or polyps. No inflammatory changes or ulcerations. No significant diverticulosis. The scope was retroflexed in the anal canal. There was no significant hemorrhoidal disease. Scope was then withdrawn. Patient tolerated procedure well, was sent to recovery room in good condition. Follow up colonoscopy should be in 10 years for screening. CC: Patient's family physicianThe [facility]health [facility] Medical [id number] NotePROCEDURE: XR PELVIS 1_2 VIEWS HISTORY: Unspecified fall COMPARISON: None. FINDINGS: BONES:No fracture, acute abnormality, or significant arthropathy. SOFT TISSUES:No visible soft tissue swelling. EFFUSION:None visible. OTHER: Negative. IMPRESSION: 1. No acute bone abnormality. Electronically authenticated by: KODY MACIEL Date: 2022-07-12 16:39The [facility] Medical [id number] Hospital Discharge instructions Patient Education 05/14/2022 12:17:40 Erectile Dysfunction Erectile Dysfunction Erectile dysfunction (ED) is the inability to get or keep an erection in order to have sexual intercourse. Erectile dysfunction may include: Inability to get an erection. Lack of enough hardness of the erection to allow penetration. Loss of the erection before sex is finished. What are the causes? This condition may be caused by: Certain medicines, such as: ?Pain relievers. ?Antihistamines. ?Antidepressants. ?Blood pressure medicines. ?Water pills (diuretics). ?Ulcer medicines. ?Muscle relaxants. ?Drugs. Excessive drinking. Psychological causes, such as: ?Anxiety. ?Depression. ?Sadness. ?Exhaustion. ?Performance fear. ?Stress. Physical causes, such as: ?Artery problems. This may include diabetes, smoking, liver disease, or atherosclerosis. ?High blood pressure. ?Hormonal problems, such as low testosterone. ?Obesity. ?Nerve problems. This may include back or pelvic injuries, diabetes mellitus, multiple sclerosis, or Parkinson disease. What are the signs or symptoms? Symptoms of this condition include: Inability to get an erection. Lack of enough hardness of the erection to allow penetration. Loss of the erection before sex is finished. Normal erections at some times, but with frequent unsatisfactory episodes. Low sexual satisfaction in either partner due to erection problems. A curved penis occurring with erection. The curve may cause pain or the penis may be too curved to allow for intercourse. Never having nighttime erections. How is this diagnosed? This condition is often diagnosed by: Performing a physical exam to find other diseases or specific problems with the penis. Asking you detailed questions about the problem. Performing blood tests to check for diabetes mellitus or to measure hormone levels. Performing other tests to check for underlying health conditions. Performing an ultrasound exam to check for scarring. Performing a test to check blood flow to the penis. Doing a sleep study at home to measure nighttime erections. How is this treated? This condition may be treated by: Medicine taken by mouth to help you achieve an erection (oral medicine). Hormone replacement therapy to replace low testosterone levels. Medicine that is injected into the penis. Your health care provider may instruct you how to give yourself these injections at home. Vacuum pump. This is a pump with a ring on it. The pump and ring are placed on the penis and used to create pressure that helps the penis become erect. Penile implant surgery. In this procedure, you may receive: ?An inflatable implant. This consists of cylinders, a pump, and a reservoir. The cylinders can be inflated with a fluid that helps to create an erection, and they can be deflated after intercourse. ?A semi-rigid implant. This consists of two silicone rubber rods. The rods provide some rigidity. They are also flexible, so the penis can both curve downward in its normal position and become straight for sexual intercourse. Blood vessel surgery, to improve blood flow to the penis. During this procedure, a blood vessel from a different part of the body is placed into the penis to allow blood to flow around (bypass) damaged or blocked blood vessels. Lifestyle changes, such as exercising more, losing weight, and quitting smoking. Follow these instructions at home: Medicines Take ptdj-ofo-wnpetpi and prescription medicines only as told by your health care provider. Do not increase the dosage without first discussing it with your health care provider. If you are using self-injections, perform injections as directed by your health care provider. Makesure to avoid any veins that are on the surface of the penis. After giving an injection, apply pressure to the injection site for 5 minutes. General instructions Exercise regularly, as directed by your health care provider. Work with your health care provider to lose weight, if needed. Do not use any products that contain nicotine or tobacco, such as cigarettes and e-cigarettes. If you need help quitting, ask your health care provider. Before using a vacuum pump, read the instructions that come with the pump and discuss any questionswith your health care provider. Keep all follow-up visits as told by your health care provider. This is important. Contact a health care provider if: You feel nauseous. You vomit. Get help right away if: You are taking oral or injectable medicines and you have an erection that lasts longer than 4 hours. If your health care provider is unavailable, go to the nearest emergency room for evaluation. An erection that lasts much longer than 4 hours can result in permanent damage to your penis. You have severe pain in your groin or abdomen. You develop redness or severe swelling of your penis. You have redness spreading up into your groin or lower abdomen. You are unable to urinate. You experience chest pain or a rapid heart beat (palpitations) after taking oral medicines. Summary Erectile dysfunction (ED) is the inability to get or keep an erection during sexual intercourse. This problem can usually be treated successfully. This condition is diagnosed based on a physical exam, your symptoms, and tests to determine the cause. Treatment varies depending on the cause, and may include medicines, hormone therapy, surgery, orvacuum pump. You may need follow-up visits to make sure that you are using your medicines or devices correctly. Get help right away if you are taking or injecting medicines and you have an erection that lasts longer than 4 hours. This information is not intended to replace advice given to you by your health care provider. Make sure you discuss any questions you have with your health care provider. Document Released: 08/30/2001 Document Revised: 08/15/2018 Document Reviewed: 09/18/2017 [employer] Patient Education 2020 [employer]. Follow Up Care 04/16/2022 13:13:15 With:SADIE LINDQUIST FAAFP, KYLE Lujan Address: When: Unknown Comments:return for skin lesion removal with CB if he prefers. see referral [facility] 08-29-2022 Evaluation + Plan note Diagnostic Tests Pending * [facility] Future Appointments Appointment Date:06/27/2022 09:00:00 AM Scheduled Provider:Varsha Peralta MD Location:[facility] Appointment Type:URO New Patient General Surgery [place] Evaluation + Plan note Future Appointments Appointment Date:11/07/2022 11:30:00 AM Scheduled Provider:Lizy DUVAL CNP [facility] Future Appointments Appointment Date:12/05/2022 12:45:00 PM Scheduled Provider:Ernesto Kelly MD [facility] Type:Cardiology Follow Up (FT) Future Scheduled Tests Laboratory* Basic Metabolic Panel 11/13/22 * CBC w/ Auto Diff 11/13/22 Radiology* CV Cardiovascular 11/13/22 [facility] Evaluation + Plan note Future Appointments Appointment Date:12/14/2022 10:15:00 AM Scheduled Provider:Lizy DUVAL CNP [facility] Type:Cardiology Follow Up (FT) Appointment Date:01/01/2023 09:15:00 AM Scheduled Provider:Christy VALDES MD Location:[facility] Appointment Type:URO Office Visit Future Scheduled Tests Laboratory* Basic Metabolic Panel 11/13/22 * CBC w/ Auto Diff 11/13/22 Radiology* CV Cardiovascular 11/13/22 [facility] Evaluation + Plan note Future Appointments Appointment Date:01/01/2023 09:15:00 AM Scheduled Provider:Christy VALDES MD Location:[facility] Appointment Type:URO Office Visit Future Scheduled Tests Laboratory* Basic Metabolic Panel 11/13/22 * CBC w/ Auto Diff 11/13/22 Radiology* CV Cardi[facility] Future Appointments Appointment Date:07/09/2023 10:15:00 AM Scheduled Provider:Christy VALDES MD Location:[facility] Appointment Type:URO Office Visit Future Scheduled Tests Laboratory* PSA Free & Total 01/01/23 * Basic Metabolic Panel 11/13/22 * CBC w/ Auto Diff 11/13/22 Radiology* CV Cardiovascular 11/13/22 [facility] [place] Evaluation + Plan note Future Appointments Appointment Date:02/13/2024 02:15:00 PM Scheduled Provider:Maxime Hull MD Location:[facility] Appointment Type: Open Future Scheduled Tests Laboratory* PSA Free & Total 01/01/23 * Basic Metabolic Panel 11/13/22 * CBC w/ Auto Diff 11/13/22 Radiology* CV Cardiovascular 11/13/22 [facility] evaluation + Plan note Future Appointments Appointment Date:10/19/2024 01:15:00 PM Scheduled Provider:Maxime Hull MD Location:[facility] Appointment Type:FM Open [facility] Evaluation + Plan note Future Appointments Appointment Date:10/19/2024 01:15:00 PM Scheduled Provider:Maxime Hull MD Location:[facility] Appointment Type:FM Open Appointment Date:12/30/2024 10:45:00 AM Scheduled Provider:Varsha Peralta MD Location:[facility] Appointment Type:URO Office Visit [facility] evaluation + Plan note Future Appointments Appointment Date:01/15/2025 11:00:00 AM Scheduled Provider: Location[facility] Appointment Type:CT Abdomen/Pelvis Combo () Appointment Date:02/10/2025 01:00:00 PM Scheduled Provider:Varsha Peralta MD Location:[facility] Appointment Type:URO Office Visit Appointment Date:02/23/2025 01:40:00 PM Scheduled Provider:Maxime Hull MD Location:[facility] Appointment Type: Open Diagnostic Tests Pending * Testosterone Level Total 01/06/25 * Urine Cytology ( Labs) 01/06/25 Future Scheduled Tests Radiology* CT Urogram 01/15/25 [facility] Evaluation + Plan note Future Appointments Appointment Date:02/10/2025 01:00:00 PM Scheduled Provider:Varsha Peralta MD Location:[facility] Appointment Type:URO Procedure 15 min Appointment Date:02/23/2025 01:40:00 PM Scheduled Provider:Maxime Hull MD Location:[facility] Appointment Type: Open [facility] evaluation + Plan note Future Appointments Appointment Date:02/23/2025 01:40:00 PM Scheduled Provider:Maxime Hull MD Location:[facility] Appointment Type: Open Future Scheduled Tests Laboratory* Estradiol Level 01/28/25 * Hematocrit 01/28/25 * Luteinizing Hormone 01/28/25 * Testosterone Level Total 01/28/25 [facility] evaluation note* Diagnosis Memory impairment- Primary Memory loss Complex regional pain syndrome type 1, affecting unspecified site History of traumatic brain injury Personal history of traumatic brain injury [facility] Diagnosis Paroxysmal atrial fibrillation ([facility]-HCC)- Primary Atrial fibrillation Preop cardiovascular exam- Primary Pre-operative cardiovascular examination Coronary artery disease involving [place] coronary artery of [place] heart without angina pectoris Paroxysmal atrial fibrillation (CMS-HCC) Atrial fibrillation Pulmonary emphysema, unspecified emphysema type (CMS-HCC) Hyperlipemia, mixed Mixed hyperlipidemia Paroxysmal atrial fibrillation (CMS-HCC) Atrial fibrillation [facility] Memory impairment- Primary Memory loss PTSD (post-traumatic stress disorder) (CMS/HCC) Posttraumatic stress disorder Anxiety and depression (CMS/HCC) Anisocoria Complex regional pain syndrome type 1, affecting unspecified site [facility] Atrial fibrillation with rapid ventricular response (CMS-HCC)- Primary Atrial fibrillation with rapid ventricular response (CMS-HCC) Paroxysmal atrial fibrillation (CMS-HCC) Atrial fibrillation Paroxysmal atrial fibrillation (CMS-HCC) Atrial fibrillation [facility] Diagnosis Paroxysmal atrial fibrillation (CMS-HCC)- Primary Atrial fibrillation Coronary artery disease involving [place] coronary artery of [place] heart without angina pectoris [facility] Diagnosis Coronary artery disease involving [place] coronary artery of [place] heart without angina pectoris- Primary Paroxysmal atrial fibrillation (CMS-HCC) Atrial fibrillation Hyperlipemia, mixed Mixed hyperlipidemia [facility] Diagnosis Paroxysmal atrial fibrillation (CMS-HCC)- Primary Atrial fibrillation Paroxysmal atrial fibrillation (CMS-HCC)- Primary Atrial fibrillation Paroxysmal atrial fibrillation (CMS-HCC) Atrial fibrillation [facility] Diagnosis Paroxysmal atrial fibrillation (CMS-HCC) Atrial fibrillation Paroxysmal atrial fibrillation (CMS-HCC)- Primary Atrial fibrillation Paroxysmal atrial fibrillation (CMS-HCC) Atrial fibrillation [facility] Diagnosis Paroxysmal atrial fibrillation (CMS-HCC)- Primary Atrial fibrillation [facility]arr[facility] No data available for this section [facility] Discharge instructions No data available for this section [facility] Dis[facility] instructionsNot on file documented in this encounterProSt. [facility] One[facility], Inc. SystemInstructionsNot on file documented in this encounterProSt. [facility] [employer]. SystemInstructionsNot on file documented in this encounterProMedime [employer], [employer]. SystemInstructionsNot on file documented in this encounterProMemorial [facility] SystemInstructionsNot on file documented in this encounterProSt. Vincent[facility] [employer]. SystemInstructionsNot on file documented in this encounterProMedica Health SystemInstructionsNot on file documented in this encounterProMedica Health SystemInstructionsNot on file documented in this encounterProEast [facility] Hospitalca Health SystemInstructionsNot on file documented in this encounterProMedica Health SystemInstructionsNot on file documented in this encounterProMedica Health SystemInstructionsNot on file documented in this encounterProSt. Vincent'[facility] Health SystemProgress note No data available for this section [facility] [place] Reason for referral (narrative) Referred by: Edward URBAN MD [facility] General Surgery [place] Summary Purpose Family History No Family History Records FoundNo Family History Records FoundNo Family History Records FoundNo Family History Records FoundNo Family History Records Found No data available for this section No Family History Records Found No data available for this section No data available for this section No Family History Records FoundNo Family History Records FoundNo Family History Records Found No data available for this section No data available for this section No Family History Records FoundNo Family History Records FoundNo Family History Records Found No data available for this section No Family History Records Found No data available for this section No data available for this section No Family History Records FoundNo Family History Records FoundNo Family History Records FoundNo Family History Records FoundNo Family History Records FoundNo Family History Records FoundNo Family History Records FoundNo Family History Records Found Advance Directives No Advanced Directives Records Found Date Activated Date Inactivated Comments 01/08/2024 4:31 AM 01/10/2024 12:17 PM Date Activated Date Inactivated Comments 12/01/2023 3:08 PM 12/03/2023 12:52 PM Date Activated Date Inactivated Comments 10/21/2023 12:37 AM 10/22/2023 7:35 PM Latest Code Status on File Code Status Date Activated Date Inactivated Comments Full Code 10/21/2023 12:37 AM 10/22/2023 7:35 PM Latest Code Status on File Code Status Date Activated Date Inactivated Comments Full Code 10/21/2023 12:37 AM 10/22/2023 7:35 PM Date Activated Date Inactivated Comments 01/08/2024 4:31 AM 01/10/2024 12:17 PM Date Activated Date Inactivated Comments 12/01/2023 3:08 PM 12/03/2023 12:52 PM Date Activated Date Inactivated Comments 10/21/2023 12:37 AM 10/22/2023 7:35 PM Reason for Referral Specialty Diagnoses / Procedures Referred By Contac t Referred To Contact Procedures Discharge Follow-Up El Dobson, PTA-ADMISSIONS SUPERVISOR [address] [facility] [address] [place] [address] Referral ID Status Reason Start Date Expiration Date V isits Requested Visits Authorized [id number] Pending Review 10/22/2023 10/21/2024 1 1 Specialty Diagnoses / Procedures Referred By Contac t Referred To Contact Diagnoses Paroxysmal atrial fibrillation ([facility]-H[facility]) Procedures Follow-up with primary care provider El Dobson, REDDY-ADMISSIONS SUPERVISOR [address] [facility] [address] [place] [address] Referral ID Status Reason Start Date Expiration Date V isits Requested Visits Authorized [id number] Pending Review 10/22/2023 10/21/2024 1 1 Specialty Diagnoses / Procedures Referred By Contac t Referred To Contact Procedures Adult diet El Dobson, PTA-ADMISSIONS SUPERVISOR [address] [facility] [address] [place] [address] Referral ID Status Reason Start Date Expiration Date V isits Requested Visits Authorized [id number] Pending Review 10/22/2023 10/21/2024 1 1 Additional Source Comments (unrecognized sect ion and content) No Status Records FoundNo Status Records FoundNo Status Records FoundNo Status Records FoundNo Status Records FoundNo Status Records FoundNo Status Records FoundNo Status Records FoundNo Status Records FoundNo Status Records FoundNo Status Records FoundNo Status Records FoundNo Status Records FoundNo Status Records FoundNo Status Records FoundNo Status Records FoundNo Status Records FoundNo Status Records FoundNo Status Records FoundNo Status Records FoundNo Status Records Found INFORMATION SOURCE (unrecogn ized section and content) DATE CREATED AUTHOR 03/07/[address] [facility] DATE CREATED AUTHOR AUTHOR'S ORGANIZ ATION 03/12/2018 [facility] DATE CREATED AUTHOR AUTHOR'S ORGANIZ ATION 11/21/2022 [facility] DATE CREATED AUTHOR AUTHOR'S ORGANIZ ATION 04/18/2024 [facility] DATE CREATED AUTHOR AUTHOR'S ORGANIZ ATION 07/22/2024 [facility] DATE CREATED AUTHOR AUTHOR'S ORGANIZ ATION 09/29/2024 [facility] DATE CREATED AUTHOR AUTHOR'S ORGANIZ ATION 10/20/2024 [facility] DATE CREATED AUTHOR AUTHOR'S ORGANIZ ATION 12/05/2024 [facility] DATE CREATED AUTHOR AUTHOR'S ORGANIZ ATION 01/09/2025 [facility] DATE CREATED AUTHOR AUTHOR'S ORGANIZ ATION 02/26/2025 [facility] DATE CREATED AUTHOR AUTHOR'S ORGANIZ ATION 03/31/2025 [facility] DATE CREATED AUTHOR AUTHOR'S ORGANIZ ATION 04/05/2025 [facility] DATE CREATED AUTHOR AUTHOR'S ORGANIZ ATION 2025 [facility] Care Team (unrecognized sect ion and content) Light Rail Signal Technician Relationship Specialty Start Date End Date Gideon Luna MD [address] [place] [phone] PCP - General Family Medicine 04/08/24 Light Rail Signal Technician Relationship Specialty Start Date End Date Gideon Luna MD [address] [place] [phone] PCP - General Family Medicine 04/08/24 Light Rail Signal Technician Relationship Specialty Start Date End Date Gideon Luna MD [address] [place] [phone] PCP - General Family Medicine 04/08/24 Wendy Zhong NP [address] [place] [phone] Nurse Practitioner Neurology 07/20/24 Regis Guerrero DO [address] [place] [id number] Referring Physician Neurology 07/20/24 Light Rail Signal Technician Relationship Specialty Start Date End Date Maxime Hull MD [address] [place] [address] PCP - General Family Medicine 08/26/24 Light Rail Signal Technician Relationship Specialty Start Date End Date Maxime Hull MD [address] [place] [address] PCP - General Family Medicine 08/26/24 Light Rail Signal Technician Relationship Specialty Start Date End Date Maxime Hull MD [address] [place] [id number] PCP - General Family Medicine 08/26/24 Light Rail Signal Technician Relationship Specialty Start Date End Date Gideon Luna MD [address] [place] [address] PCP - General Family Medicine 04/08/24 Wendy Zhong NP [address] [phone] Nurse Practitioner Neurology 07/20/24 Regis Guerrero DO [address] [place] [id number] Referring Physician Neurology 07/20/24 Light Rail Signal Technician Relationship Specialty Start Date End Date No Pcp, [place] [address] PCP - General Family Medicine 10/20/23 Light Rail Signal Technician Relationship Specialty Start Date End Date No Pcp, [place] [address] PCP - General Family Medicine 10/20/23 Light Rail Signal Technician Relationship Specialty Start Date End Date No Pcp, [place] [address] PCP - General Family Medicine 10/20/23 Light Rail Signal Technician Relationship Specialty Start Date End Date Kathy Noel [address] [place] [address] [place] [address] PCP - General Family Medicine 11/08/23 Light Rail Signal Technician Relationship Specialty Start Date End Date No Pcp, [place] [address] PCP - General Family Medicine 12/01/23 Light Rail Signal Technician Relationship Specialty Start Date End Date No Pcp, [place] [address] PCP - General Family Medicine 12/01/23 Light Rail Signal Technician Relationship Specialty Start Date End Date No Pcp, [place] [address] PCP - General Family Medicine 12/01/23 Light Rail Signal Technician Relationship Specialty Start Date End Date No Pcp, [place] [address] PCP - General Family Medicine 12/01/23 Light Rail Signal Technician Relationship Specialty Start Date End Date Maxime Hull MD [address] [place] [address] PCP - General Family Medicine 08/26/24 Light Rail Signal Technician Relationship Specialty Start Date End Date Maxime Hull MD [address] [place] [address] PCP - General [facility] 08/26/24 Light Rail Signal Technician Relationship Specialty Start Date End Date Maxime Hull MD [address] [place] [address] PCP - General Family Medicine 08/26/24 Reason for Visit (unrecogniz ed section and content) Reason Onset Date Comments Preop Clearance 10/09/2024 Reason Comments Pre-op Exam PREOP CLEARANCE DR Jose PINO HERNILouise Atrial Fibrillation Coronary Artery Disease Reason Comments Memory Loss Leg Pain Reason Comments Atrial Fibrillation Assoc with SOB and c hest tightness. HR 140-180s. Pt has hx of AFIb and states he has adverse reaction to cardizem. 2030 he received ASA Specialty Diagnoses / Procedures Referred By Contac t Referred To Contact Diagnoses Tachycardia Atrial fibrillation with rapid ventricular response ([facility]-HCC) Arie Foley MD [address], [address] [phone] Referral ID Status Reason Start Date Expiration Date Visits Re quested Visits Authorized [id number] 1 1 Reason Comments Follow-up EST PT [facility] 2023 AFIB SCHED W/PT Reason Onset Date Comments Cardiac Medication Refills 04/01/2024 Reason Comments Follow-up Hosp f/u - cath [facility]Dr. 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 [facility] W/ PT Specialty Diagnoses / Procedures Referred By Reginaldo t Referred To Contact Cardiology Diagnoses Paroxysmal atrial fibrillation ([facility]) Jude Alberto APRN-[facility] [address] [place] [address] Phone: tel: fax: [facility] [address] [place] [address] Phone: tel: fax: Referral ID Status Reason Start Date Expiration Date Visits Requested Visits Authorized [id number] Pending Review Specialty Services Required 04/23/2024 04/23/2025 1 1 Reason Onset Date Comments Ep Surgery ( PT Education) 08/26/2024 Reason Comments Follow-up S/P Ablation @ TT Atrial Fibrillation Reason Comments Med Refill Scheduled Active and Recently Administ ered Medications (unrecognized section and content) Medication Order 10/20/2023 10/21/2023 10/22/2023 apixaban (ELIQUIS) tablet 5 mg 5 mg, oral, 2 times daily, First dose on Sat10/21/23 at 0900, Indication: Nonvalvular Atrial Fibrillation (NVAF) 0815 (Given - Provider: Leyda Richard RN)9888 (Given - Provider: Vicki Chiang RN) 1146 (Given - Provider: Amelie Lara - Comment: Pt was NPO.) digoxin (LANOXIN) injection 170 mcg (COMPLETED) 170 mcg (2.5 mcg/kg 68 kg), intravenous, Once, On Sat10/21/23 at 0035, For 1 dose, Administer IVP slowly over at least 5 minutes. Look-alike/sound-alike medication - verify indication for use. 0121 (Given - Provider: Deanna Malagon, DOMINGO) digoxin (LANOXIN) injection 170 mcg (COMPLETED) 170 mcg (2.5 mcg/kg 68 kg), intravenous, Once, On Sat10/21/23 at 0155, For 1 dose, Administer IVP slowly over at least 5 minutes. Look-alike/sound-alike medication - verify indication for use. 0206 (Given - Provider: Deanna Malagon, DOMINGO) digoxin (LANOXIN) injection 250 mcg (COMPLETED) 250 mcg, intravenous, Once, On Sat10/21/23 at 1230, For 1 dose, Administer IVP slowly over at least 5 minutes. Look-alike/sound-alike medication - verify indication for use. 1328 (Given - Provider: Lizy Mejia RN) heparin (porcine) injection 5,000 Units (CANCELED) 5,000 Units, subcutaneous, Every 8 hours scheduled, First dose on Sat10/21/23 at 0040, Notify prescriber if INR greater than 1.9, hemoglobin less than 10 mg/dL, aPTT greater than 40 seconds, and/or platelet count less than 100,000/mm Look-alike/sound-alike medication - verify indication for use. Observe for bleeding. 0124 (Given - Provider: Deanna Malagon RN)0646 (Given - Provider: Deanna Malaogn, DOMINGO) metoprolol (LOPRESSOR) injection 5 mg (COMPLETED) 5 mg, intravenous, Once, On Sat10/20/23 at 2315, For 1 dose, Look-alike/sound-alike medication - verify indication for use. 2321 (Given - Provider: Deanna Malagon, DOMINGO) metoprolol (LOPRESSOR) injection 5 mg (COMPLETED) 5 mg, intravenous, Once, On Sat10/20/23 at 2335, For 1 dose, Look-alike/sound-alike medication - verify indication for use. 2338 (Given - Provider: Deanna Malagon, DOMINGO) metoprolol (LOPRESSOR) injection 5 mg (COMPLETED) 5 mg, intravenous, Once, On Sat10/20/23 at 2355, For 1 dose, Look-alike/sound-alike medication - verify indication for use. 0040 (Given - Provider: Deanna Malagon, DOMINGO) metoprolol (LOPRESSOR) injection 5 mg (COMPLETED) 5 mg, intravenous, Once, On Sat10/21/23 at 0400, For 1 dose, Look-alike/sound-alike medication - verify indication for use. 0432 (Given - Provider: Deanna Malagon RN) metoprolol succinate XL (TOPROL XL) 24 hr tablet 25 mg (CANCELED) 25 mg, oral, Daily, First dose on Sat10/21/23 at 0900, Look-alike/sound-alike medication - verify indication for use. Do not crush or chew. 0815 (Given - Provider: Leyda Richard RN) metoprolol succinate XL (TOPROL XL) 24 hr tablet 25 mg 25 mg, oral, Daily, First dose on Sat10/22/23 at 0900, Hold for systolic blood pressure less than 100 or heart rate less than 60 Look-alike/sound-alike medication - verify indication for use. Do not crush or chew. 0900 (Not Given - Provider: Amelie Lara - Reason: Contraindicated - Comment: Primary nurse notified) metoprolol tartrate (LOPRESSOR) tablet 50 mg (COMPLETED) 50 mg, oral, Once, On Sat10/21/23 at 0400, For 1 dose, Look-alike/sound-alike medication - verify indication for use. 0433 (Given - Provider: Deanna Malagon, DOMINGO) pantoprazole (PROTONIX) EC tablet 40 mg 40 mg, oral, Every morning before breakfast, First dose on Sat10/21/23 at 0700, Look-alike/sound-alike medication - verify indication for use. If patient is receiving enteral feeding, consider alternative PPI or continue IV pantoprazole until the delayed-release tablet can be taken orally, Indication: Dispense As Written (MARIA DE JESUS) 0700 (Given - Provider: Leyda Richard RN) 0542 (Given - Provider: Vicki Chiang, RN)0700 (Canceled Entry - Provider: Vicki Chiang RN) sodium chloride 0.9 % bolus (COMPLETED) 1,000 mL, intravenous, at 984 mL/hr, Administer over 61 Minutes, Once, On Sat10/20/23 at 2315, For 1 dose 2315 (Bolus from Existing Bag - Provider: Deanna Malagon, DOMINGO) sodium chloride 0.9 % flush 3 mL 3 mL, intravenous, Every 12 hours scheduled, First dose on Sat10/20/23 at 2315 0209 (Given - Provider: Deanna Malagon, RN)1328 (Given - Provider: Lizy Mejia, DOMINGO)2208 (Given - Provider: Vicki Chiang RN) 0900 (Not Given - Provider: Aleida Orlando, DOMINGO - Reason: IV infusing) sodium chloride 0.9 % flush 3 mL 3 mL, intravenous, Every 12 hours scheduled, First dose on Sat10/22/23 at 0915, Intra-Procedure (CV) 0915 (Not Given - Provider: Aleida Orlando, DOMINGO - Reason: NPO) PRN Medication Order 10/20/2023 10/21/2023 10/22/2023 acetaminophen (TYLENOL) tablet 650 mg 650 mg, oral, Every 4 hours PRN, mild pain - pain scale 1-3, headaches, temperature greater than 38 C, Temperature greater than 38.3 C, Starting on Sat10/21/23 at 0036, [Warning: Total Acetaminophen not to exceed more than 4 grams (4000 mg) in 24 hours] 1341 (Given - Provider: Lizy Mejia, DOMINGO) 1145 (Given - Provider: Amelie Lara) calcium gluconate 3,000 mg in sodium chloride 0.9 % 100 mL IVPB 3,000 mg, intravenous, at 43.3 mL/hr, Administer over 3 Hours, As needed, ionized calcium 3.5 to 3.9 mg/dL, Starting on Sat10/21/23 at 0036, IV Administration of calcium via a central or deep vein preferred. Avoid administration in small hand veins VESICANT (RED) calcium gluconate 4,000 mg in sodium chloride 0.9 % 250 mL IVPB 4,000 mg, intravenous, at 72.5 mL/hr, Administer over 4 Hours, As needed, ionized calcium 3.4 mg/dL or less, Starting on Sat10/21/23 at 0036, IV administration of calcium via a central or deep vein is preferred. Avoid administration in small hand veins. VESICANT (RED) calcium gluconate IVPB 2000 mg/100 mL (20 mg/mL premix) 2,000 mg, intravenous, at 50 mL/hr, Administer over 2 Hours, As needed, ionized calcium 4 to 4.3 mg/dL, Starting on Sat10/21/23 at 0036, IV Administration of calcium via a central or deep vein preferred. Avoid administration in small hand veins VESICANT (RED) dextrose (GLUTOSE) 40 % gel 15 g 15 g, oral, As needed, low blood sugar, blood glucose less than 70 mg/dL, Starting on Sat10/21/23 at 0036, If patient conscious and taking PO. If blood glucose is not greater than 70 mg/dL after initial treatment, repeat treatment. dextrose 5 % (D5W) infusion 100 mL/hr, intravenous, Continuous PRN, blood glucose less than 70 mg/dL, Starting on Sat10/21/23 at 0036, Use immediately following dextrose 50% or glucagon treatment for patients who are unconscious or NPO. Contact prescriber for additional orders. If blood glucose is not greater than 70 mg/dL after initial treatment, repeat treatment. dextrose 50 % in water (D50W) 50% solution 25 mL 25 mL, intravenous, As needed, low blood sugar, blood glucose less than 70 mg/dL and unconscious or NPO with IV access, Starting on Sat10/21/23 at 0036, Push over 1-3 minutes STAT. If conscious and not NPO, immediately follow with meal tray or high protein (7 grams) snack if tray not available. If NPO, initiate 5% dextrose in water at 100 mL/hr and contact prescriber for additional orders. If blood glucose is not greater than 70 mg/dL after initial treatment, repeat treatment. VESICANT (RED) Warning: HYPERTONIC solution. glucagon HCL injection 1 mg 1 mg, intramuscular, As needed, low blood sugar, blood glucose less than 70 mg/dL and unconscious or NPO without IV access., Starting on Sat10/21/23 at 0036, If conscious and not NPO, immediately follow with meal tray or high protein (7Grams) snack if tray not available. If NPO, initiate IV 5% Dextrose/Water at 100 mL/hr and contact prescriber for additional orders. If blood glucose is not greater than 70 mg/dL after initial treatment, repeat treatment. kit for Tc 99m-sestamibi injection 10 millicurie (COMPLETED) 10 millicurie, intravenous, Once in imaging, contrast, Radiopharmaceutical, Starting on Sat10/22/23 at 0816, For 1 dose, Additional Imaging Orders 0810 (Given - Provid er: Twyla Ngo - Comment: 10.3 mCi Cardiolite) kit for Tc 99m-sestamibi injection 30 millicurie (COMPLETED) 30 millicurie, intravenous, Once in imaging, contrast, Radiopharmaceutical, Starting on Sat10/22/23 at 0816, For 1 dose, Additional Imaging Orders 1002 (Given - Provid er: Twyla Ngo - Comment: 30.6 mCi CArdiolite) magnesium sulfate IVPB 2000 mg/50 mL in iso-osmotic water (40 mg/mL premix) 2,000 mg, intravenous, at 25 mL/hr, Administer over 120 Minutes, As needed, Magnesium level 1.7 to 1.9 mg/dL, or Ionized Magnesium level 0.45 to 0.5 mmol/L., Starting on Sat10/21/23 at 0036, Recheck magnesium level 4 hours after infusion complete. With each magnesium result continue the replacement orders as needed. magnesium sulfate IVPB 4000 mg/100 mL in iso-osmotic water (40 mg/mL premix) 4,000 mg, intravenous, at 25 mL/hr, Administer over 240 Minutes, As needed, Magnesium level 1.6 mg/dL or less, or Ionized Magnesium level 0.44 mmol/L or less, Starting on Sat10/21/23 at 0036, Recheck magnesium level 4 hours after infusion complete. With each magnesium result continue the replacement orders as needed. ondansetron (PF) (ZOFRAN) injection 4 mg 4 mg, intravenous, Every 8 hours PRN, nausea, vomiting, Starting on Sat10/21/23 at 0036, Administer over 2-5 minutes. potassium chloride (KAYCIEL) 20 mEq/15 mL solution 30-50 mEq(Linked Group 1) 30-50 mEq, oral, As needed, potassium supplementation, Starting on Sat10/21/23 at 0036, Progress to oral potassium replacement when patient tolerating oral intake. If dose administered, recheck potassium level 4 hours after last dose. For potassium level 3.4 to 3.8 mmol/L and GFR 30 mL/min or greater=30 mEq. For potassium level 3.1 to 3.3 mmol/L and GFR 30 mL/min or greater=40 mEq. For potassium level 3 mmol/L or less and GFR 30 mL/min or greater=50 mEq. Must dilute before use - Mix in 3-8 ounces of water or juice before administration When administering in feeding tube, flush before and after per policy and monitor potassium levels potassium chloride (KLOR-CON M 20) CR tablet 30-50 mEq(Linked Group 1) 30-50 mEq, oral, As needed, potassium supplementation, Starting on Sat10/21/23 at 0036, Progress to oral potassium replacement when patient tolerating oral intake. If dose administered, recheck potassium level 4 hours after last dose. For potassium level 3.4 to 3.8 mmol/L and GFR 30 mL/min or greater=30 mEq. For potassium level 3.1 to 3.3 mmol/L and GFR 30 mL/min or greater=40 mEq. For potassium level 3 mmol/L or less and GFR 30 mL/min or greater=50 mEq. Do not crush or chew. regadenoson (LEXISCAN) injection 0.4 mg (COMPLETED) 0.4 mg, intravenous, Once in imaging, for Nuclear stress, Starting on Sat10/22/23 at 0908, For 1 dose, Intra-Procedure (CV), Administer over 10 seconds followed by 5 mL saline flush. 1002 (Given - Provid er: Mami Ferguson RN) sennosides-docusate sodium (SENOKOT-S) 8.6-50 mg 1 tablet 1 tablet, oral, Every 12 hours PRN, constipation, Starting on Sat10/21/23 at 0036 sod phos di, mono-K phos mono (K-PHOS NEUTRAL) 250 mg tablet 2 tablet(Linked Group 2) 2 tablet, oral, As needed, for phosphorus level 2.3 mg/dL or less., Starting on Sat10/21/23 at 0036, If dose administered, recheck phosphorus level 4 hours after last dose. Look-alike/sound-alike medication - verify indication for use. Give with a full glass of water. sodium chloride 0.9 % flush 10 mL (COMPLETED) 10 mL, intravenous, Once in imaging, line care, Nuclear Medicine, Starting on Sat10/22/23 at 0816, For 1 dose, Additional Imaging Orders 1002 (Given - Provid er: Twyla Ngo) sodium chloride 0.9 % flush 10 mL (COMPLETED) 10 mL, intravenous, Once in imaging, line care, Nuclear Medicine, Starting on Sat10/22/23 at 0816, For 1 dose, Additional Imaging Orders 0810 (Given - Provid er: Twyla Ngo) sodium chloride 0.9 % flush 3 mL 3 mL, intravenous, As needed, line care, before and after each intermittent use, Starting on Sat10/20/23 at 2313 sodium chloride 0.9 % flush 3 mL 3 mL, intravenous, As needed, line care, before and after each intermittent use, Starting on Sat10/22/23 at 0908, Intra-Procedure (CV) sodium chloride 0.9 % flush bag 25 mL, intravenous, at 100 mL/hr, Administer over 15 Minutes, As needed, line care, line care after IVPB administration, Starting on Sat10/21/23 at 0036 sodium chloride 0.9 % infusion 20 mL/hr, intravenous, Continuous PRN, to maintain patency of lines, Starting on Sat10/21/23 at 0036 sodium phosphate 20 mmol in sodium chloride 0.9 % 100 mL IVPB(Linked Group 2) 20 mmol, intravenous, at 26.7 mL/hr, Administer over 4 Hours, As needed, for phosphorus level 2.3 mg/dL or less., Starting on Sat10/21/23 at 0036, Administer over 4 hours via dedicated line (central line). If administered, recheck phosphorus level 4 hours after infusion complete. Infuse using central line access. sodium phosphate 20 mmol in sodium chloride 0.9 % 250 mL IVPB(Linked Group 2) 20 mmol, intravenous, at 42.8 mL/hr, Administer over 6 Hours, As needed, for phosphorus level 2.3 mg/dL or less, Starting on Sat10/21/23 at 0036, Administer over 6 hours via dedicated line (peripheral line). If administered, recheck phosphorus level 4 hours after infusion complete. Linked Groups Order Group 1: potassium chloride (KLOR-CON M 20) CR tablet 30-50 mEqJump to med 30-50 mEq, oral, As needed, potassium supplementation, Starting on Sat10/21/23 at 0036, Progress to oral potassium replacement when patient tolerating oral intake. If dose administered, recheck potassium level 4 hours after last dose. For potassium level 3.4 to 3.8 mmol/L and GFR 30 mL/min or greater=30 mEq. For potassium level 3.1 to 3.3 mmol/L and GFR 30 mL/min or greater=40 mEq. For potassium level 3 mmol/L or less and GFR 30 mL/min or greater=50 mEq. Do not crush or chew. Or potassium chloride (KAYCIEL) 20 mEq/15 mL solution 30-50 mEqJump to med 30-50 mEq, oral, As needed, potassium supplementation, Starting on Sat10/21/23 at 0036, Progress to oral potassium replacement when patient tolerating oral intake. If dose administered, recheck potassium level 4 hours after last dose. For potassium level 3.4 to 3.8 mmol/L and GFR 30 mL/min or greater=30 mEq. For potassium level 3.1 to 3.3 mmol/L and GFR 30 mL/min or greater=40 mEq. For potassium level 3 mmol/L or less and GFR 30 mL/min or greater=50 mEq. Must dilute before use - Mix in 3-8 ounces of water or juice before administration When administering in feeding tube, flush before and after per policy and monitor potassium levels Group 2: sodium phosphate 20 mmol in sodium chloride 0.9 % 250 mL IVPBJump to med 20 mmol, intravenous, at 42.8 mL/hr, Administer over 6 Hours, As needed, for phosphorus level 2.3 mg/dL or less, Starting on Sat10/21/23 at 0036, Administer over 6 hours via dedicated line (peripheral line). If administered, recheck phosphorus level 4 hours after infusion complete. Or sodium phosphate 20 mmol in sodium chloride 0.9 % 100 mL IVPBJump to med 20 mmol, intravenous, at 26.7 mL/hr, Administer over 4 Hours, As needed, for phosphorus level 2.3 mg/dL or less., Starting on Sat10/21/23 at 0036, Administer over 4 hours via dedicated line (central line). If administered, recheck phosphorus level 4 hours after infusion complete. Infuse using central line access. Or sod phos di, mono-K phos mono (K-PHOS NEUTRAL) 250 mg tablet 2 tabletJump to med 2 tablet, oral, As needed, for phosphorus level 2.3 mg/dL or less., Starting on Sat10/21/23 at 0036, If dose administered, recheck phosphorus level 4 hours after last dose. Look-alike/sound-alike medication - verify indication for use. Give with a full glass of water. FOR RECORDS PERTAINING TO PATIENTS WHO ARE OR HAVE BEEN ENROLLED IN A CHEMICAL DEPENDENCY/SUBSTANCEABUSE PROGRAM, SOME INFORMATION MAY BE OMITTED. This clinical summary was aggregated from multiple sources. Caution should be exercised in using it in the provision of clinical care. This summary normalizes information from multiple sources, and as a consequence, information in this document may materially change the coding, format and clinical context of patient data. In addition, data may be omitted in some cases. CLINICAL DECISIONS SHOULD BE BASED ON THE PRIMARY CLINICAL RECORDS. [employer] provides no warranty or guarantee of the accuracy or completeness of information in this document.
== END 2025-05-04 12:34 | disposition home or self-care (01) ==
LOC: CARD 12:34
PROVIDERS: PCP Nurse Practitioner Family; Visit Provider Internal Medicine
DX: J44.9 Chronic obstructive pulmonary disease, unspecified (principal); F17.219 Nicotine dependence, cigarettes, with unspecified nicotine-induced disorders; Z12.2 Encounter for screening for malignant neoplasm of respiratory organs
CPT/HCPCS: 36415; 71271; 85018; 94060; 94726; 94729

== ENCOUNTER 2025-06-07 12:28 | Emergency (ER) | payer OTHER, MEDICAID, SELFPAY ==
--- OUTSIDE RECORDS SUMMARY | 2025-06-07 12:34 | XMS_ITS | Encounter Summary ---
Author Organization [facility] Address [id number] [address] [place] [address] Care Team Providers Care Lab Tech Name Role Phone Sterling Luo MD Primary Care Provider [phone] Reason for Visit * Reason Onset Date Comments Med Refill 05/02/2024 Encounter Details Date Type Department Care Team (Late st Contact Info) Description 05/02/2024 Refill [facility] [address] [place] [id number] Nat Roberts, PA-C [address] [place] [address] Med Refill Social History Tobacco Use Types Packs/Day Years Used Date Smoking Tobacco: Former Cigarettes 0.5 43 0 09/16/1980 - 09/2023 Smokeless Tobacco: Never Comments:Smoking down to abo ut 6 sticks a day since last year Alcohol Use Standard Drinks/Week Comments Not Currently 0 (1 standard drink = 0.6 oz pur e alcohol) [facility] Utilities Answer Date Recorded In the past 12 months has [employer], gas, oil, or water company threatened to shut off services in your home? No 01/08/2024 AUDIT-C Answer Date Recorded Q1: How often do you have a drink containing alcohol? Never 12/01/2023 Q2: How many drinks containi ng alcohol do you have on a typical day when you are drinking? Patient does not drink Q3: How often do you have si x or more drinks on one occasion? Never 12/01/2023 Overall Financial Resource Strain (CARDIA) Answe r Date Recorded How hard is it for you to pa y for the very basics like food, housing, medical care, and heating? Not hard at all 12/01/2023 PHQ-2 Answer Date Recorded Total Score 0 12/01/2023 PRAPARE - Transportation Answer Date Re corded In the past 12 months, has l ack of transportation kept you from medical appointments or from getting medications? No 12/16 In the past 12 months, has l ack of transportation kept you from meetings, work, or from getting things needed for daily living? No 01/08/2024 Housing Instability Answer Date Recorde d Are you worried or concerned that in the next two months you may not have stable housing that you own, rent or stay in as a part of a household? No 01/08/2024 Childcare Answer Date Recorded Childcare Unknown 02/25/2019 Employment Answer Date Recorded Employment Unknown 02/25/2019 Hunger Screening Answer Date Recorded Within the past 12 months we worried whether our food would run out before we got money to buy more. Never True 01/12/2024 Within the past 12 months th e food we bought just didn't last and we didn't have money to get more. Never True 01/12/2024 Sex and Gender Information Value Date Recorded Sex Assigned at Male 10/21/2023 9:55 PM EST Legal Sex Male 11:31 AM EDT Gender Identity Male 10/21/2023 9:55 PM EST Sexual Orientation Straight 10/21/2023 9: 55 PM EST documented as of this encounter Miscellaneous Notes * Telephone Encounter - Lynda Donovan RN - 05/02/2024 4:17 PM EDT Just filled 04/23/24 by BETY documented in this encounter Plan of Treatment Upcoming Encounters Date Type Department Care Team (Late st Contact Info) Description 07/14/2025 2:30 PM EDT Office Visit [facility] [address] [place] [address] Arthur Chappell MD [address] [place] [address] documented as of this encounter Goals Goal Patient Goal Type Associated Problems Recent Progress Patient-Stated? Author return to prison General Yes Laya Allen, RN Note: Evaluation of progress towards goal: plan is to return to prison upon heart conversion to RSR documented as of this encounter Visit Diagnoses Not on filedocumented in this encounter Additional Health Concerns Assessment Noted Time PHQ-9 Depression Total Score: 0 12/01/19 24 7:23 PM EDT documented as of this encounter Care Teams Lab Tech Relationship Specialty Start Date End Date Sterling Luo MD [address] [place] [address] PCP - General Family Medicine 08/26/24 documented as of this encounter
--- OUTSIDE RECORDS SUMMARY | 2025-06-07 12:35 | XMS_ITS | Clinical Summary ---
Author Organization [facility] Address [facility] [id number] [address] [place] [address] Care Team Providers Care Transit Specialist Name Role Phone Sterling Luo MD Primary Care Provider [phone] Allergies Active Allergy Reactions Criticality Noted Date Comments Sulfamethoxazole-Trimethop rim 10/27/2023 Buspirone Nausea 11/02/2023 Diltiazem Hcl Dizziness,Hypotensi on Medium 10/21/2023 Gabapentin Nausea 11/02/2023 Sulfamethoxazole 05/27/2018 Other Reaction(s): Unknown Reaction Trimethoprim 05/27/2018 Other Reaction(s): Unknown Reaction Varenicline Palpitations,Nausea Low 11/02/2023 Venlafaxine Rash Low 11/02/2023 Medications acetaminophen (TYLENOL EXTRA STRENGTH) 500 mg tablet Take 1 tablet (500 mg total) by mouth every 6 (six) hours as needed for pain. 30 tablet 12/03/2023 Active apixaban (ELIQUIS) 5 mg tablet Take 1 tablet (5 mg total) by mouth in the morning and 1 tablet (5 mg total) before bedtime. 60 tablet 04/01/2024 Active sacubitriL-vals helena (ENTRESTO) 24-26 mg tablet Take 1 tablet by mouth in the morning and 1 tablet before bedtime. 60 tablet 11 04/23/2024 Active empagliflozin (JARDIANCE) 10 mg tablet tablet Take 1 tablet (10 mg total) by mouth in the morning. 30 tablet 11 04/23/2024 Active atorvastatin (LIPITOR) 80 mg tablet Take 1 tablet (80 mg total) by mouth in the morning. 90 tablet 3 05/19/2024 Active clopidogreL (PLAVIX) 75 mg tablet Take 1 tablet (75 mg total) by mouth in the morning. 90 tablet 2 07/03/2024 Active alendronate (FOSAMAX) 70 mg tablet Take 1 tablet (70 mg total) by mouth every 7 days. 09/28/2024 Active amitriptyline (ELAVIL) 25 mg tablet Take 1 tablet (25 mg total) by mouth in the morning. 08/12/2024 Active tamsulosin (FLOMAX) 0.4 mg capsule Take 1 capsule (0.4 mg total) by mouth in the morning. 09/02/2024 Active metoprolol succinate XL (TOPROL XL) 100 mg 24 hr tablet Take 1 tablet (100 mg total) by mouth in the morning. 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 11/08/2023 Anxiety 10/21/2023 Asthma 10/21/2023 COPD (chronic obstructive pulmonary disease) 01/2024 Hyperlipemia, mixed 10/21/2023 Insomnia due to medical condition 10/21/2023 Paroxysmal atrial fibrillation 10/21/2023 Resolved Problems Problem Noted Date Diagnosed Date Resolved Date Atrial fibrillation with rap id ventricular response 10/20/2023 11/08/2023 Encounters Date Type Department Care Team Description 03/30/2025 Refill [facility] [address] [place] [address] Jude Alberto, [employer] Med Refill from Last 3 Months Immunizations No known immunizations Family History Medical History Relation Name Comments Cancer Father Diabetes Father COPD Mother Diabetes Mother Heart disease Mother Relation Name Status Comments Father Mother Social History Tobacco Use Types Packs/Day Years Used Date Smoking Tobacco: Every Day Cigarettes 0.5 43 Started: 09/16/1980; Last attempted to quit: 09/2023 Smokeless Tobacco: Never Tobacco Cessation:Ready to Q uit: Not Asked; Counseling Given: Not Answered Comments:Smoking down to about 6 sticks a day since last year Alcohol Use Standard Drinks/Week Comments Not Currently 0 (1 standard drink = 0.6 oz pur e alcohol) [facility] Utilities Answer Date Recorded In the past 12 months has e electric, gas, oil, or water company threatened to [...] got money to buy more. Never True 01/13/2025 Within the past 12 months th e food we bought just didn't last and we didn't have money to get more. Never True 01/13/2025 Sex and Gender Information Value Date Recorded Sex Assigned at Male 10/21/2023 9:55 PM EST Legal Sex Male 11:31 AM EDT Gender Identity Male 10/21/2023 9:55 PM EST Sexual Orientation Straight 10/21/2023 9: 55 PM EST Last Filed Vital Signs Vital Sign Reading Time Taken Comments Blood Pressure 144/88 01/13/2025 2:43 PM EDT Pulse 102 01/13/2025 2:43 PM EDT Temperature 36.3 C (97.3 F) 11/25/2024 3:00 PM EDT Respiratory Rate 18 11/25/2024 3:05 PM EDT Oxygen Saturation 95% 11/25/2024 5:00 PM EDT Inhaled Oxygen Concentration - - Weight 70.8 kg (156 lb) 01/13/2025 2:43 PM EDT Height 154.9 cm (5' 1 ) 01/13/2025 2:43 PM EDT Body Mass Index 29.48 01/13/2025 2:43 PM EDT Plan of Treatment Upcoming Encounters Date Type Department Care Team (Late st Contact Info) Description 07/14/2025 2:30 PM EDT Office Visit [facility] [address] [place] [id number] Arthur Chappell MD [address] [place] [address] Health Maintenance Due Date Last Done Comments Statin Use: Cardiovascular 1971 Tobacco Counseling 1971 Adult BMI Follow Up Plan 1989 DTaP,Tdap and Td Vaccines (1 - Tdap) 1990 Zoster (Shingles) Vaccine (1 of 2) 2021 Depression Screening 11/30/2024 12/01/2023 Influenza Vaccine 05/17/2025 Adult BMI Screening 01/13/2026 01/13/2025 Tobacco Screening 01/13/2026 01/13/2025 Goals Goal Patient Goal Type Associated Problems Recent Progress Patient-Stated? Author return to residential General Yes Laya Allen RN Note: Evaluation of progress towards goal: plan is to return to residential upon heart conversion to RSR Medical Devices Implanted Type Area Home Health Provider Device Identifier Shelf Expiration Date Model / Serial / Lot Stent Stent Insurance [employer] [place] [employer] Advance Directives * Full Code (Latest Code Status on File) Date Activated Date Inactivated Comments 01/08/2024 4:31 AM 01/10/2024 12:17 PM * Full Code Date Activated Date Inactivated Comments 12/01/2023 3:08 PM 12/03/2023 12:52 PM * Full Code Date Activated Date Inactivated Comments 10/21/2023 12:37 AM 10/22/2023 7:35 PM Care Teams Transit Specialist Relationship Specialty Start Date End Date Sterling Luo MD [address] [place] [address] PCP - General Family Medicine 08/26/24
--- OUTSIDE RECORDS SUMMARY | 2025-06-07 12:35 | XMS_ITS | Encounter Summary ---
Author Organization [employer] Address [id number] [address] [place] [address] Care Team Providers Care Jukebox Route Driver Name Role Phone Sterling Luo MD Primary Care Provider [phone] Encounter Details Date Type Department Care Team (Late st Contact Info) Description 11/23/2024 Orders Only [facility] [address] [place] [id number] Anabel Muro CMA Paroxysmal atrial fibrillation ([facility]) Social History Tobacco Use Types Packs/Day Years Used Date Smoking Tobacco: Every Day Cigarettes 0.5 43 Started: 09/16/1980; Last attempted to quit: 09/2023 Smokeless Tobacco: Never Comments:Smoking down to abo ut 6 sticks a day since last year Alcohol Use Standard Drinks/Week Comments Not Currently 0 (1 standard drink = 0.6 oz pur e alcohol) [facility] Utilities Answer Date Recorded In the past 12 months has [employer], gas, oil, or water [employer] threatened to shut off services in your [...] got money to buy more. Never True 10/20/2024 Within the past 12 months th e food we bought just didn't last and we didn't have money to get more. Never True 10/20/2024 Sex and Gender Information Value Date Recorded Sex Assigned at Male 10/21/2023 9:55 PM EST Legal Sex Male 11:31 AM EDT Gender Identity Male 10/21/2023 9:55 PM EST Sexual Orientation Straight 10/21/2023 9: 55 PM EST documented as of this encounter Plan of Treatment Upcoming Encounters Date Type Department Care Team (Late st Contact Info) Description 07/14/2025 2:30 PM EDT Office Visit [facility] [address] [place] [address] Arthur Chappell MD [address] [place] [address] documented as of this encounter Goals Goal Patient Goal Type Associated Problems Recent Progress Patient-Stated? Author return to group home General Yes Laya Allen, DOMINGO Note: Evaluation of progress towards goal: plan is to return to group home upon heart conversion to RSR documented as of this encounter Procedures Procedure Name Priority Date/Time Associated Diagnosis Comments CBC WITH AUTO DIFFERENTIAL Routine 11/20/2024 Paroxysmal atrial fibrillation ([facility]) MAGNESIUM Routine 11/20/2024 Paroxysmal atrial fibrillation ([facility]) BASIC METABOLIC PANEL Routine 11/20/2024 Paroxysmal atrial fibrillation ([facility]) documented in this encounter Results * Basic Metabolic Panel (11/20/2024) 11/20/2024 us Arthur Chappell MD LAB BLOOD ORDERABLES Final Resul t Performing Organization Address [facility] [[email or web address]] Co de Phone Number SUNQUEST * Magnesium (11/20/2024) 11/20/2024 us Arthur Chappell MD LAB BLOOD ORDERABLES Final Resul t Performing Organization Address [facility] [[email or web address]] Co de Phone Number SUNQUEST * CBC auto differential (11/20/2024) 11/20/2024 us Arthur Chappell MD LAB BLOOD ORDERABLES Final Resul t Performing Organization Address [facility] [[email or web address]] Co de Phone Number SUNQUEST documented in this encounter Visit Diagnoses Diagnosis Paroxysmal atrial fibrillation ([facility]) Atrial fibrillation documented in this encounter Additional Health Concerns Assessment Noted Time PHQ-9 Depression Total Score: 0 12/01/19 24 7:23 PM EDT documented as of this encounter Care Teams Jukebox Route Driver Relationship Specialty Start Date End Date Sterling Luo MD [address] [place] [address] PCP - General Family Medicine 08/26/24 documented as of this encounter
--- OUTSIDE RECORDS SUMMARY | 2025-06-07 12:35 | XMS_ITS | Patient Health Record ---
Author Organization [facility] [place] Address [address] [place] [address] Care Team Providers Care Principal Network Engineer Name Role Phone Margie Rubio Primary Care Provider Dolly vailaMicheal Adkins Unavailable [phone] Allergies Allergen (clinical drug ingredient) Drug/Non Drug Allergy documented on EMR Reaction Allergy Type Onset Date Status sulfamethoxazole / trimethoprim Bactrim lightheadedness Drug Allergy Active BuSpar nausea Drug Allergy Active varenicline Chantix heart palpitatio ns, nausea Drug Allergy Active gabapentin Gabapentin nausea Drug Allergy Activ e venlafaxine Venlafaxine rash Drug Allergy Act aman Results Component Value Reference Range Notes [id number] SCREENIN G SWAB Reviewed date:01/25/2025 07:21:10 AM Interpretation: Performing Lab: Notes/Report: CT Chest Low Dose for Screen ing* Reviewed date:05/05/2025 01:08:46 PM Interpretation: Performing Lab: Notes/Report: HEMOGLOBIN (Not yet reviewed by provider) Interpretation: Performing Lab: Notes/Report: [facility] , Hemoglobin 15.5 14.0-18.0 g/dL Performing Lab: see note ML - [facility] LB CT lung screening low-dose ( Not yet reviewed by provider) Interpretation: Performing Lab: Notes/Report: Source Facility: [facility]-[address] [place] [address] [place] [address] CT Scan Report Signed Patient: REGIS ERNANDEZ MR#: [id number] : 1970 Acct:[id number] Age/Sex: 55 / M ADM Date: 05/04/25 Loc: CARD Attending Dr: Micheal Bearden D.O. Ordering Physician: Micheal Bearden D.O. Date of Service: 05/04/25 Procedure(s): CT lung screening low-dose Accession Number(s): [id number] cc: Margie Rodriguez NP [place] [address] Patient Name: REGIS ERNANDEZ MRN: [id number] date: 1970 Sex: M Assigned Patient Location: CARD Current Patient Location: Accession/Order Number: [id number] Exam Date: 05/05/2025 12:38 Report Date: 05/05/2025 12:44 At the request of: MICHEAL BEARDEN DO Procedure: CT lung screening low-dose CT Chest lung screening without contrast TECHNIQUE: Axial imaging with 2-D reconstruction. The CT exam was performed using one or more the following dose reduction techniques: Automated exposure control, adjustment of the MA and/or Kv according to patient size, or use of the iterative reconstruction technique. History: Lung screening. Current smoker COMPARISON: None THYROID: Unremarkable TRACHEA AND BRONCHI: Patent ESOPHAGUS: Unremarkable. HEART: Within normal limits PERICARDIAL EFFUSION: None CORONARY ARTERY CALCIFICATION: Moderate MEDIASTINUM: No adenopathy. No pneumoperitoneum. No mediastinal hematoma. PULMONARY JAVON: No hilar mass or adenopathy is seen. Calcified right hilar lymph nodes. Calcified right granuloma. THORACIC AORTA Unremarkable LUNG NODULE None LUNGS: Lungs are clear PLEURAL EFFUSION: None PNEUMOTHORAX: No pneumothorax seen. CHEST WALL: No abnormality AXILLA:Unremarkable BONY STRUCTURES Intact UPPER ABDOMEN: Images of the upper abdomen are noncontributory. CT/CT lung screening low-dose IMPRESSION: No visible lung nodule. FINAL ASSESSMENT: Negative. Lung-RADS Version 1.0 Assessment Category: 1 REMARKS: Continued annual screening with LDCT in 12 months is recommended. Impression dictated by: Chaka Hager M.D. 05/05/2025 12:44 PM Dictation Location: [facility] Electronically authenticated by: [id number] Y Date: 05/05/2025 12:44 Dictated By: Chaka Hager D.O. 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: Reason For Referral No Information Medications Medication SIG (Take, Route, Frequency, Duration) Notes Start Date End Date Status Amiodarone HCl 200 MG TAKE 1 TABLET BY M OUTH IN THE MORNING Oral; Duration: 90 Days Active Atorvastatin Calcium 80 MG TAKE 1 TABLET BY MOUTH IN THE MORNING Oral; Duration: 90 Days Active Clopidogrel Bisulfate 75 MG TAKE 1 TABLET BY MOUTH IN THE MORNING Oral; Duration: 90 Days Active Advair Diskus 250-50 MCG/ACT 1 puff Inhalation Twice a day; Duration: 30 days Rinse after use Active Eliquis 5 MG TAKE 1 TABLET (5 MG TOTAL) BY MOUTH IN THE MORNING AND BEFORE BEDTIME Oral; Duration: 30 Days Active Alendronate Sodium 70 MG PLEASE SEE CHINYERE PRINGLE FOR DETAILED DIRECTIONS Oral; Duration: 84 Days Active Spironolactone 25 MG TAKE 1 TABLET BY MO UTH IN THE MORNING Oral; Duration: 90 Days Active Tamsulosin HCl 0.4 MG TAKE 1 CAPSULE BY MOUTH ONCE A DAY FOR LIGHTHEADEDNESS OR DIZZINESS Oral; Duration: 90 Days Active Entresto 24-26 MG TAKE 1 TABLET BY TRAVIS TH IN THE MORNING AND BEFORE BEDTIME Oral; Duration: 30 Days Active Jardiance 10 MG TAKE 1 TABLET BY TRAVIS TH IN THE MORNING Oral; Duration: 30 Days Active Metoprolol Succinate ER 50 MG TAKE 1 TABLET (50 MG TOTAL) BY MOUTH IN THE MORNING Oral; Duration: 90 Days Active Incruse Ellipta 62.5 MCG/ACT 1 puff Inhalation Once a day; Duration: 30 days Active Albuterol Sulfate (2.5 MG/3ML) 0.083% 3 mL as needed Inhalation every 6 hrs Active Albuterol Sulfate HFA 108 (90 Base) MCG/ACT INHALE 2 PUFFS BY MOUTH EVERY 6 HOURS Inhalation Active Social History Tobacco Use: Social History Observation Description Date Details (start date - stop date) Current Smoker NA - NA Tobacco Control (Standard) Question Answer Notes Tobacco use: Current every day smoker Additional Findings: Tobacco user Moderate cigar ette smoker (10-19 cigs/day) Problems Problem Type SNOMED Code ICD Code Onset Dates Problem Status W/U Status Risk Notes Problem Narcolepsy without cataplexy (51669222363347) 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) Active confirmed Problem Long-term current use of inhaled steroid (362140296) FPC (current) use of inhaled steroids (Z79.51) Active confirmed Problem COPD - Chronic obstructive pulmonary disease (30116658) COPD (chronic obstructive pulmonary disease) (J44.9) Active confirmed Problem Coronary artery disease (33927502) CAD (coronary artery disease) (I25.10) Active confirmed Problem 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) Cigarette nicotine dependence with nicotine-induced disorder (F17.219) Active confirmed Problem Atrial fibrillation (27883190) PAF (paroxysmal atrial fibrillation) (I48.0) Active confirmed Problem Calcified granuloma of lung (76550658370288279 ) Calcified granuloma of lung (J84.10) Active confirmed Problem Calcified lymph nodes (618131187) Calcified lymph nodes (I89.8) Active confirmed Problem History of methamphetamine abuse (83302699893754407 ) History of methamphetamine abuse (Z87.898) Active confirmed Vital Signs Heart Rate 94 /min 03/03/2025 Temperature 97.8 degrees Fahrenheit 03/03/2025 Respiratory Rate 18 /min 03/03/2025 Oximetry 98 % 03/03/2025 Blood pressure diastolic 79 mm Hg 03/03/2025 Height 61 in 03/03/2025 Blood pressure systolic 128 mm Hg 03/03/2025 Weight 150.8 lbs 03/03/2025 BMI 28.49 kg/m2 03/03/2025 Procedures Procedure Date Ordered Date Performed Result Body Sit e Smoking/Tobacco Counseling 3 min up to 10-performed 01/12/2025 01/12/2025 N/A PFT (50012, 41928, 77319) 01/12/2025 05/04/2025 N/A Encounters Encounter Location Date Provider Diagnosis Pulmonary Medicine [address] [address] 01/12/2025 Michealyen Mansfield COPD (chronic obstructive pulmonary disease) J44.9 ; Cigarette nicotine dependence with nicotine-induced disorder F17.219 ; Calcified granuloma of lung J84.10 ; Narcolepsy without cataplexy G47.419 ; Calcified lymph nodes I89.8 ; PAF (paroxysmal atrial fibrillation) I48.0 ; CAD (coronary artery disease) I25.10 ; Encounter for screening for malignant neoplasm of respiratory organs Z12.2 ; History of methamphetamine abuse 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.51 Pul[facility] [place] [address] [place] [address] 03/03/2025 Micheal Bearden COPD (chronic obstructive pulmonary disease) J44.9 ; Cigarette nicotine dependence with nicotine-induced disorder F17.219 ; Calcified granuloma of lung J84.10 ; Narcolepsy without cataplexy G47.419 ; Calcified lymph nodes I89.8 ; PAF (paroxysmal atrial fibrillation) I48.0 ; CAD (coronary artery disease) I25.10 ; Encounter for screening for malignant neoplasm of respiratory organs Z12.2 ; History of methamphetamine abuse 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 Has been on Symbicort 160 and HandiHaler, both up until around the beginning of 2024 it appears; currently only on Symbicort 160 for some reason. He states Spiriva had more benefit. Explained that he has already been on triple therapy (ICS/LABA/LAMA) with Symbicort + Spiriva - any inhaler changes at this point are simply lateral moves. Counseled patient that he needs to stop smoking or he may never improve. For now, PFT is needed to better diagnose and evaluate his respiratory status. After PFT is done, he needs to restart a LAMA to return to triple therapy. As he has been on Symbiocort and Spiriva for years, recommended changing inahlers to see if there is any benefit (despite being a lateral move). Will begin Advair 250 @ 2 puffs BID and Incruse @ 1 puff QD - Rx sent to pharmacy. He is not to use Symbicort. Eosinophils 10/28/2024 were 2.4% / absolute count 300, so may consider Dupixent in the future. Mother from emphysema in her 50's. Will check for alpha-1 antitrypsin (AAT) deficiency. Pamphlet discussing AAT causes, testing, and potential treatment was provided to the patient. Appropriate follow-up is dependent on identified genotype. F/U 6 weeks. 01/12/2025 Cigarette nicotine dependence with nicotine-induced disorder (ICD-10 - F17.219) Discussed smoking cessation for 3 minutes. Patient was counseled on the benefits of smoking cessation including decreased risk of lung cancer and development of respiratory illnesses (e.g. COPD). Smoking cessation strategies discussed/considere d include nicotine replacement therapy, bupropion (Wellbutrin/Zyban), varenicline (Chantix), alternative treatments (e.g. acupuncture, hypnosis), and cold turkey. He claims he wants to quit. Patches have failed. Cannot chew gum as he is edentulous. Chantix caused weird dreams/nightmares - dreams conisted many times of spiders... Bupropion did not help. Suggested cold turkey at this point. Discussed LDCT screening with patient - he meets criteria with 43 pack-years (minimum) and age is [address] chest I can find is from 02/26/2017. He voiced he would get LDCT done. 03/03/2025 COPD (chronic obstructive pulmonary disease) (ICD-10 - J44.9) Prior treatment: Advair 250 + Incruse > Symbicort 160 + Spiriva HandiHaler Improved symptom control as well as physical exam findings with Advair + Incruse of Symbicort + Spiriva. Any inhaler changes are lateral moves at this point. He was to have had PFT and LDCT done for evaluation to look into any other potential causes of dyspnea, but did not get them done, blaming his for filing the orders in a folder and then forgetting them. I reprinted the orders and once again personally handed him the orders along with a stapled card for him to call centralized scheduling. Counseled him on smoking cessation again. 03/03/2025 Cigarette nicotine dependence with nicotine-induced disorder (ICD-10 - F17.219) Failed patches, edentulous so can't chew gum, Chatnix caused weird dreams/nightmares (spiders), Wellbutrin no help. He was counseled to stop smoking again. 01/12/2025 Calcified granuloma of lung (ICD-10 - J84.10) Calcified 1cm RUL nodule appears chronic/stable based on prior reports from CT chest 11/26/2011 and 02/26/2017. There were also some calcified lymph nodes, suggesting old granuolmatous disease. 01/12/2025 Narcolepsy without cataplexy (ICD-10 - G47.419) PSG 06/10/2017: No SOTO (AHI 2) MSLT 06/11/2017: Positive for narcolepsy Patient states he was on Ritalin for a while for this, but has not had it for several years. Given his history of methamphetamine and other drug use, I am not comfortable prescribing stimulants and/or other controlled substances for him. 03/03/2025 Calcified granuloma of lung (ICD-10 - J84.10) Calcified 1cm RUL nodule appears chronic/stable based on prior reports from CT chest 11/26/2011 and 02/26/2017. There were also some calcified lymph nodes, suggesting old granuolmatous disease. LDCT was ordered, but not done. 03/03/2025 Narcolepsy without cataplexy (ICD-10 - G47.419) PSG 06/10/2017: No SOTO (AHI 2) MSLT 06/11/2017: Positive for narcolepsy Patient states he was on Ritalin for a while for this, but has not had it for several years. Given his history of methamphetamine and other drug use, I am not comfortable prescribing stimulants and/or other controlled substances for him. 01/12/2025 Calcified lymph nodes (ICD-10 - I89.8) As above. 01/12/2025 PAF (paroxysmal atrial fibrillation) (ICD-10 - I48.0) Remains irregularly irregular today on examination. Discussed link with afib and COPD/smoking. 03/03/2025 Calcified lymph nodes (ICD-10 - I89.8) As above. 03/03/2025 PAF (paroxysmal atrial fibrillation) (ICD-10 - I48.0) Remains irregularly irregular today on examination. Discussed link with afib and COPD/smoking. 01/12/2025 CAD (coronary artery disease) (ICD-10 - I25.10) Cardiac cathterization 11/21/2022: PCI with KAREN to proximal and mid-LAD. History of CAD at a young age of 54, with smoking and lifestyle significant contributing factors. 01/12/2025 Encounter for screening for malignant neoplasm of respiratory organs (ICD-10 - Z12.2) Low-dose CT (LDCT) was recommended for lung cancer screening. The patient meets criteria including age 50-77, a smoking history of at least 20 pack-years, is currently smoking or has ceased smoking within the past 15 years, and has no signs or symptoms of lung cancer. Shared decision making performed with the patient. After LDCT has been completed, will review report and/or imaging and provide appropriate recommendations for the patient, including additional follow up if needed. Patient was counseled on smoking cessation/continued tobacco abstinence. 03/03/2025 CAD (coronary artery disease) (ICD-10 - I25.10) Cardiac cathterization 11/21/2022: PCI with KAREN to proximal and mid-LAD. History of CAD at a young age of 54, with smoking and lifestyle significant contributing factors. 03/03/2025 Encounter for screening for malignant neoplasm of respiratory organs (ICD-10 - Z12.2) Low-dose CT (LDCT) was recommended for lung cancer screening. The patient meets criteria including age 50-77, a smoking history of at least 20 pack-years, is currently smoking or has ceased smoking within the past 15 years, and has no signs or symptoms of lung cancer. Shared decision making performed with the patient. After LDCT has been completed, will review report and/or imaging and provide appropriate recommendations for the patient, including additional follow up if needed. Patient was counseled on smoking cessation/continued tobacco abstinence. Printed out LDCT form again... 01/12/2025 History of methamphetamine abuse (ICD-10 - Z87.898) Overdose/overuse leading to hospitalizations 05/27/2023 & 07/11/2022. Avoiding prescribing stimulants based on history of use/abuse. 01/12/2025 FPC (current) use of inhaled steroids (ICD-10 - Z79.51) Patient was counseled to rinse & gargle with water after inhaled corticosteroid use. 03/03/2025 History of methamphetamine abuse (ICD-10 - Z87.898) Overdose/overuse leading to hospitalizations 05/27/2023 & 07/11/2022. Avoiding prescribing stimulants based on history of use/abuse. 03/03/2025 FPC (current) use of inhaled steroids (ICD-10 - Z79.51) Patient was counseled to rinse & gargle with water after inhaled corticosteroid use. Plan Of Treatment Pending Test Test Name Order Date HEMOGLOBIN 05/04/2025 CT lung screening low-dose 05/05/2025 Insurance Providers Payer Name Payer Address Payer Phone Subscriber Number Group Number Insured Name Patient Relationship to Insured Coverage Start Date Coverage End Date [employer] [place] [address] [place] [address] [id number] Regis Ernandez Self - patient is the insured [employer] [place] [employer] [address] [address] [place] [address] [id number] Regis Ernandez Self - patient is the insured Medical (General) History Medical History History ICD Code COPD (chronic obstructive pulmonary dise ase) J44.9 CAD (coronary artery disease) I25.10 PAF (paroxysmal atrial fibrillation) I48 .0 BPH (benign prostatic hypertrophy) N40.0 HLD (hyperlipidemia) E78.5 Cardiomyopathy I42.9 Calcified granuloma of lung J84.10 Calcified lymph nodes I89.8 Narcolepsy without cataplexy G47.419 Right inguinal hernia K40.90 Genital warts A63.0 Cigarette nicotine dependence with nicot ine-induced disorder F17.219 History of methamphetamine abuse Z87.898 History of alcohol abuse Z87.898 History of traumatic brain injury Z87.82 0 Surgical History Surgery Date(Month/Year) laser therapy-genital warts vasectomy oral surgery Cardiac Catheterization facial reconstruction surgery hernia repair Cardiac Ablation Hospitalization History Reason Date(Month/Year) Chest Pain-[facility] 04/02/2024
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
--- OUTSIDE RECORDS SUMMARY | 2025-06-07 12:35 | XMS_ITS | Encounter Summary ---
Author Organization [employer] [facility] Address [id number] [address] [place] [address] Care Team Providers Care Linseed Oil Temperer Name Role Phone Sterling Luo MD Primary Care Provider [phone] Reason for Visit * Reason Onset Date Comments neuro referral 10/20/2024 Encounter Details Date Type Department Care Team (Late st Contact Info) Description 10/20/2024 [facility] [address] [place] [address] Pari Schmitz neuro referral Social History Tobacco Use Types Packs/Day Years Used Date Smoking Tobacco: Every Day Cigarettes 0.5 43 Started: 09/16/1980; Last attempted to quit: 09/2023 Smokeless Tobacco: Never Comments:Smoking down to abo ut 6 sticks a day since last year Alcohol Use Standard Drinks/Week Comments Not Currently 0 (1 standard drink = 0.6 oz pur e alcohol) [facility] Utilities Answer Date Recorded In the past 12 months has [employer], gas, oil, or water Hello Agent threatened to shut off services in your [...] encounter Miscellaneous Notes * Telephone Encounter - Pari Schmitz - 10/20/2024 2:42 PM EST 1st attempt requesting a updated DX due to our office not seeing for just pain, and the last medical notes. DX: Pain Syndrome Date faxed to provider office:[phone] Fax #:[phone] Please advise documented in this encounter Plan of Treatment Upcoming Encounters Date Type Department Care Team (Late st Contact Info) Description 07/14/2025 2:30 PM EDT Office Visit [facility] [address] [facility] [address] [place] [address] Arthur Chappell MD [address] [place] [address] documented as of this encounter Goals Goal Patient Goal Type Associated Problems Recent Progress Patient-Stated? Author return to [facility] General Yes Laya Allen, RN Note: Evaluation of progress towards goal: plan is to return to [facility] upon heart conversion to RSR documented as of this encounter Visit Diagnoses Not on filedocumented in this encounter Additional Health Concerns Assessment Noted Time PHQ-9 Depression Total Score: 0 12/01/19 24 7:23 PM EDT documented as of this encounter Care Teams Linseed Oil Temperer Relationship Specialty Start Date End Date Sterling Luo MD [address] [place] [address] PCP - General Family Medicine 08/26/24 documented as of this encounter
--- OUTSIDE RECORDS SUMMARY | 2025-06-07 12:35 | XMS_ITS | Clinical Summary ---
Author Organization [facility] Address [address] [place] [address] Care Team Providers Care Long Lines Operator Name Role Phone Sterling Luo MD Primary Care Provider Allergies Active Allergy Reactions Criticality Noted Date Comments Buspirone Nausea Only 11/02/2023 Diltiazem Dizziness,Other Medium 10/21/2023 Other Reaction(s): Hypotension Gabapentin Nausea Only 11/02/2023 Sulfamethoxazole Rash Low 05/27/2018 Other Reaction(s): Unknown Reaction Trimethoprim Rash Low 05/27/2018 Other Reaction(s): Unknown Reaction Varenicline Palpitations,Nausea Only Low 11/02/2023 Venlafaxine Rash Low 11/02/2023 Medications alendronate (Fosamax) 70 mg tablet Take 70 mg by mouth once a week. 09/28/2024 Active amiodarone (Pacerone) 200 mg tablet Take 200 mg by mouth in the morning. 07/03/2024 Active amitriptyline (Elavil) 25 mg tablet Take 25 mg by mouth in the morning. 08/12/2024 Active apixaban (Eliquis) 5 mg tablet Take 1 tablet by mouth in the morning and at bedtime. Active atorvastatin (Lipitor) 80 mg tablet Take 80 mg by mouth in the morning. Active clopidogrel (Plavix) 75 mg tablet Take 75 mg by mouth in the morning. 07/03/2024 Active empagliflozin (Jardiance) 10 mg Take 1 tablet by mouth in the morning. Active metoprolol succinate XL (Toprol-XL) 50 mg 24 hr tablet Take 50 mg by mouth in the morning. Active Entresto 24-26 mg tablet Take 1 tablet by mouth twice a day. 04/23/2024 Active spironolactone (Aldactone) 25 mg tablet Take 25 mg by mouth in the morning. Active tamsulosin (Flomax) 0.4 mg 24 hr capsule Take 0.4 mg by mouth in the morning. 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 10/07/2024 Prediabetes 10/07/2024 Presence of stent in LAD coronary artery 025 Reducible right inguinal hernia 10/07/2024 Tobacco abuse 10/07/2024 Low vitamin D level 10/07/2024 Right inguinal hernia 10/07/2024 Right upper quadrant abdominal pain 01/09/2024 Hyperlipemia, mixed 10/21/2023 Insomnia due to medical condition 10/21/2023 Paroxysmal atrial fibrillation 10/21/2023 Social History Tobacco Use Types Packs/Day Years Used Date Smoking Tobacco: Every Day Cigarettes Smokeless Tobacco: Never Tobacco Cessation:Ready to Q uit: Not Asked; Counseling Given: Not Answered Alcohol Use Standard Drinks/Week Comments Never 0 (1 standard drink = 0.6 oz pur e alcohol) Humiliation, Afraid, Rape, and Kick questionnair e Answer Date Recorded Within the last year, have y ou been afraid of your partner or ex-partner? No 11/11/2024 Emotionally Abused Not on file 11/11/2024 Physically Abused Not on file 11/11/2024 Sexually Abused Not on file 11/11/2024 PHQ-2 Answer Date Recorded Patient Health Questionnaire-2 Score 1 11/11/2024 Sex and Gender Information Value Date Recorded Sex Assigned at Not on file Legal Sex Male 10:49 PM EDT Gender Identity Not on file Sexual Orientation Not on file Last Filed Vital Signs Vital Sign Reading Time Taken Comments Blood Pressure 136/74 11/11/2024 1:49 PM EST Pulse 80 11/11/2024 1:49 PM EST Temperature 36.5 C (97.7 F) 11/11/2024 1:49 PM EST Respiratory Rate 16 11/11/2024 1:49 PM EST Oxygen Saturation 97% 11/11/2024 1:49 PM EST Inhaled Oxygen Concentration - - Weight 73.9 kg (163 lb) 11/11/2024 1:49 PM EST Height 157.5 cm (5' 2 ) 11/02/2024 11:43 AM EST Body Mass Index 29.81 11/02/2024 11:43 AM EST Plan of Treatment Health Maintenance Due Date Last Done Comments CT Colonography 1971 Diabetes: Hemoglobin A1C 1971 FIT-DNA 1971 FIT 1971 FOBT 1971 Sigmoidoscopy 1971 Hepatitis B Vaccines (1 of 3 - 19+ 3-dose series) 1990 Pneumococcal Vaccine: Pediat rics (0 to 5 Years) and At-Risk Patients (6 to 64 Years) (1 of 2 - PCV) 1990 Adult Tetanus 1993 Zoster Vaccines (1 of 2) 2021 COVID-19 Vaccine (1 - 2023-2 5 season) 2025 Influenza Vaccine (#1) 2025 Depression Screening 11/11/2025 11/11/2024 Colonoscopy 10/24/2032 10/24/2022 Colorectal Cancer Screening 10/24/2032 HIB Vaccines Aged Out No longer eligi ble based on patient's age to complete this topic HPV Vaccines Aged Out No longer eligi ble based on patient's age to complete this topic IPV Vaccines Aged Out No longer eligi ble based on patient's age to complete this topic Meningococcal B Vaccine Aged Out No l onger eligible based on patient's age to complete this topic Meningococcal Vaccine Aged Out No daniel francheska eligible based on patient's age to complete this topic Rotavirus Vaccines Aged Out No longer eligible based on patient's age to complete this topic Medical Devices Implanted Type Area Gastroenterology Professor Device Identifier Shelf Expiration Date Model / Serial / Lot Mesh,Progrip,R [id number] - [id number] Implanted:Qty: 1 on 11/02/2024 by Carmelita Lowe MD at [facility] Right: Abdomen COVIDIEN [id number] 06/15/2027 [id number] / / [id number] Insurance [employer] Advance Directives * Full Code (Latest Code Status on File) Date Activated Date Inactivated Comments 11/02/2024 11:40 AM 11/02/2024 7:47 PM Care Teams Long Lines Operator Relationship Specialty Start Date End Date Sterling Luo MD [address] [facility] [place] [address] PCP - General Family Medicine 11/02/24
--- OUTSIDE RECORDS SUMMARY | 2025-06-07 12:35 | XMS_ITS | Encounter Summary ---
Author Organization [facility] Address [id number] [address] [place] [address] Care Team Providers Care Furniture Upholsterer Apprentice Name Role Phone Sterling Luo MD Primary Care Provider [phone] Encounter Details Date Type Department Care Team (Late st Contact Info) Description 11/07/2023 Orders Only [facility] [address] [place] [id number] External, Scanning Provider Social History Tobacco Use Types Packs/Day Years Used Date Smoking Tobacco: Every Day Cigarettes 2 44.7 Started: 09/16/1980 Smokeless Tobacco: Never Comments:Smoking down to abo ut 6 sticks a day since last year Alcohol Use Standard Drinks/Week Comments Not Currently 0 (1 standard drink = 0.6 oz pur e alcohol) Childcare Answer Date Recorded Childcare Unknown 02/25/2019 Employment Answer Date Recorded Employment Unknown 02/25/2019 Hunger Screening Answer Date Recorded Within the past 12 months we worried whether our food would run out before we got money to buy more. Never True 11/08/2023 Within the past 12 months th e food we bought just didn't last and we didn't have money to get more. Never True 11/08/2023 Sex and Gender Information Value Date Recorded [...] Visit [facility] [address] [place] [address] Arthur Chappell MD [address] [place] [address] documented as of this encounter Procedures Procedure Name Priority Date/Time Associated Diagnosis Comments H-CARDIAC CATHETERIZATION Routine 11/21/2022 9:03 AM EST documented in this encounter Results * Cardiac catheterization (11/21/2022 9:03 AM EST) Anatomical Region Laterality Modality Other us Scanning Provider External CV CARDIAC CATH ORDER RODRI Final Result documented in this encounter Visit Diagnoses Not on filedocumented in this encounter Care Teams Furniture Upholsterer Apprentice Relationship Specialty Start Date End Date Sterling Luo MD [address] [facility] [address] PCP - General Family Medicine 08/26/24 documented as of this encounter
--- OUTSIDE RECORDS SUMMARY | 2025-06-07 12:35 | XMS_ITS | Clinical Summary ---
Author Organization [facility] Address [address] [place] [address] Care Team Providers Care Chemistry Laboratory Technician Name Role Phone Gideon Luna MD Primary Care Provider [phone] Wendy Zhong [employer] Unavailable Unavailable Benjamín Guerrero DO Unavailable [phone] Allergies Active Allergy Reactions Criticality Noted Date Comments Buspirone Nausea Only 11/02/2023 Diltiazem Dizziness,Other Medium 10/21/2023 Other Reaction(s): Hypotension Gabapentin Nausea Only 11/02/2023 Sulfamethoxazole 05/27/2018 Other Reaction(s): Unknown Reaction Sulfamethoxazole-Trimetho prim Itching 03/01/2017 diaphoresis Trimethoprim 05/27/2018 Other Reaction(s): Unknown Reaction Varenicline Palpitations,Nause a Only Low 11/02/2023 Venlafaxine Rash Low 11/02/2023 Medications amiodarone (Pacerone) 100 MG tablet Take 200 mg by mouth Daily Active clopidogrel (Plavix) 75 MG tablet Take 75 mg by mouth Daily Active atorvastatin (Lipitor) 80 MG tablet Take 80 mg by mouth Daily Active spironolactone (Aldactone) 25 MG tablet Take 25 mg by mouth Daily Active empagliflozin (Jardiance) 10 MG Take 10 mg by mouth Daily Active apixaban (Eliquis) 5 MG tablet Take 5 mg by mouth in the morning and 5 mg before bedtime. Active metoprolol tartrate (Lopressor) 50 MG tablet Take 50 mg by mouth Daily Active amitriptyline (Elavil) 25 MG tabletIndication s:Complex regional pain syndrome type 1, affecting unspecified site TAKE 1 TABLET BY MOUTH EVERY DAY 90 tablet 1 Active Entresto 24-26 MG tablet Take 1 tablet by mouth in the morning and 1 tablet before bedtime. Active alendronate (Fosamax) 70 MG tabletIndication s:Complex regional pain syndrome type 1, affecting unspecified site TAKE 1 TABLET BY MOUTH EVERY 7 DAYS IN THE MORNING WITH A FULL GLASS OF WATER, ON AN EMPTY STOMACH, AND DO NOT TAKE ANYTHING ELSE BY MOUTH OR LIE DOWN FOR THE NEXT 30 MIN. 12 tablet 1 Active Social History Tobacco Use Types Packs/Day Years Used Date Smoking Tobacco: Every Day Cigarettes Smokeless Tobacco: Never Alcohol Use Standard Drinks/Week Comments Not Currently 0 (1 standard drink = 0.6 oz pur e alcohol) Sex and Gender Information Value Date Recorded Sex Assigned at Not on file Legal Sex Male 8:00 PM EDT Gender Identity Not on file Sexual Orientation Not on file Last Filed Vital Signs Vital Sign Reading Time Taken Comments Blood Pressure 118/72 09/24/2024 12:55 PM EST Pulse 88 09/24/2024 12:55 PM EST Temperature - - Respiratory Rate - - Oxygen Saturation 96% 09/24/2024 12:55 PM EST Inhaled Oxygen Concentration - - Weight 74.4 kg (164 lb) 09/24/2024 12:55 PM EST Height - - Body Mass Index - - Plan of Treatment Not on file Insurance [employer] [place] [employer] Care Teams Chemistry Laboratory Technician Relationship Specialty Start Date End Date Gideon Luna MD [address] [place] [id number] PCP - General Family Medicine 04/08/24 Wendy Zhong NP [address] [place] [address] Nurse Practitioner Neurology 07/20/24 Benjamín Guerrero DO [address] [facility] [address] [place] [address] Referring Physician Neurology 07/20/24
[2025-06-07 12:39] VITALS: BP 115/81; PULSE 102; TEMP 36.5; O2SAT 97; BMI 30.2
--- OUTSIDE RECORDS SUMMARY | 2025-06-07 12:42 | XMS_ITS | CCD ---
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 Interpretation Code [facility] Comment on above: Result Comment: '>= 60 LOW RISK' '<= 40 HIGH RISK' Performed By: #### 2 [id number] #### [facility] [address] [place] [address] Cholesterol in LDL [Mass/Vol] 79 mg/dL Normal <=129 [facility] Comment on above: Performed By: #### 2 [id number] #### [facility] [address] [place] [address] Cholesterol in VLDL [Mass/Vol] 60 mg/dL High 7-40 [facility] Comment on above: Performed By: #### 2 [id number] #### [facility] [address] [place] [address] Triglyceride [Mass/Vol] 299 mg/dL High <=149 [facility] Comment on above: Performed By: #### 2 [id number] #### [facility] [address] [place] [address] PSA Screen, Totalon 07-20-20 24 Prostate specific Ag [Mass/Vol] 1.0 ng/mL Normal 0.1-3.5 [facility] Comment on above: Result Comment: The concentration of PSA determined by different manufacturers can vary due to differences in assay methods and reagent specificity. Values obtained from different assay methods cannot be used interchangeably. The methodology used for this result was chemiluminescence using [employer]'s Access Hy[employer] PSA reagent. Performed By: #### 1 [id number] #### [facility] [address] [place] [address] [facility] Patient Letter [facility] Patient Letter [facility] July 20, 2024 REGIS HORTA [address] [id number] : 1970 Jimbo did have an appoinment today @ 1:[address] Maxime Hull M.D. [address] [address] [facility] CBC with Diffon 04-02-2024 Abs. Basophil 0.10 k/uL Normal 0.00-0.20 [facility] Comment on above: Performed By: #### C P, CDP, TROPI #### [place] [address] Spine Supervisor: Roderick Ricardo MD Abs.Imm.Granulocyte 0.04 k/uL Normal 0.00-0.30 [facility] Comment on above: Performed By: #### C P, CDP, TROPI #### [place] [address] Spine Supervisor: Roderick Ricardo MD Abs.Neutrophil (Seg) 5.90 k/uL Normal 1.50-8.10 [facility] Comment on above: Performed By: #### C P, CDP, TROPI #### [facility] [address] [place] [address] Spine Supervisor: Roderick Ricardo MD Basophils/100 WBC (Bld) 1 % Normal 0-2 [facility] Comment on above: Performed By: #### C P, CDP, TROPI #### [place] [address] Spine Supervisor: Roderick Ricardo MD Eosinophils (Bld) [#/Vol] 0.09 10*3/uL Normal 0.00-0.4 4 [facility] Comment on above: Performed By: #### C P, CDP, TROPI #### [place] [address] Spine Supervisor: Roderick Ricardo MD Eosinophils/100 WBC (Bld) 1 % Normal 1-4 [facility] Comment on above: Performed By: #### C P, CDP, TROPI #### [address] [address] Spine Supervisor: Roderick Ricardo MD Erythrocyte distribution wid th (RBC) [Ratio] 11.9 % Normal 11.8-14.4 [facility] Comment on above: Performed By: #### C P, CDP, TROPI #### [address] [address] Spine Supervisor: Roderick Ricardo MD Hematocrit (Bld) [Volume fraction] 44.7 % Normal 40.7-50.3 [facility] Comment on above: Performed By: #### C P, CDP, TROPI #### [address] [address] Spine Supervisor: Roderick Ricardo MD Hemoglobin (Bld) [Mass/Vol] 15.4 g/dL Normal 13.0-17. 0 [facility] Comment on above: Performed By: #### C P, CDP, TROPI #### [address] [address] Spine Supervisor: Roderick Ricardo MD Immature granulocytes/100 WB C (Bld) 0 % Normal 0 [facility] Comment on above: Performed By: #### C P, CDP, TROPI #### [address] [address] Spine Supervisor: Roderick Ricardo MD Lymphocytes (Bld) [#/Vol] 2.33 10*3/uL Normal 1.10-3.7 0 [facility] Comment on above: Performed By: #### C P, CDP, TROPI #### [address] [address] Spine Supervisor: Roderick Ricardo MD Lymphocytes/100 WBC (Bld) 24 % Normal 24-43 [facility] Comment on above: Performed By: #### C P, CDP, TROPI #### [address] [address] Spine Supervisor: Roderick Ricardo MD MCH (RBC) [Entitic mass] 31.4 pg Normal 25.2-33.5 [facility] Comment on above: Performed By: #### C P, CDP, TROPI #### [address] [address] Spine Supervisor: Roderick Ricardo MD MCHC (RBC) [Mass/Vol] 34.5 g/dL Normal 28.4-34.8 [facility] Comment on above: Performed By: #### C P, CDP, TROPI #### [address] [address] Spine Supervisor: Roderick Ricardo MD MCV (RBC) [Entitic vol] 91.0 fL Normal 82.6-102.9 [facility] Comment on above: Performed By: #### C P, CDP, TROPI #### [address] [address] Spine Supervisor: Roderick Ricardo MD Monocytes (Bld) [#/Vol] 1.09 10*3/uL Normal 0.10-1.20 [facility] Comment on above: Performed By: #### C P, CDP, TROPI #### [address] [address] Spine Supervisor: Roderick Ricardo MD Monocytes/100 WBC (Bld) 11 % Normal 3-12 [facility] Comment on above: Performed By: #### C P, CDP, TROPI #### [address] [address] Spine Supervisor: Roderick Ricardo MD Neutrophil (Seg) 63 % Normal 36-[address] [facility] Comment on above: Performed By: #### C P, CDP, TROPI #### [address] [address] Spine Supervisor: Roderick Ricardo MD NRBC Automated 0.0 per 100 WBC Normal 0.0 [facility] Comment on above: Performed By: #### C P, CDP, TROPI #### [address] [address] Spine Supervisor: Roderick Ricardo MD Platelet mean volume (Bld) [Entitic vol] 9.6 fL Normal 8.1-13.5 [facility] Comment on above: Performed By: #### C P, CDP, TROPI #### [address] [address] Spine Supervisor: Roderick Ricardo MD Platelets (Bld) [#/Vol] 385 10*3/uL Normal 138-453 [facility] Comment on above: Performed By: #### C P, CDP, TROPI #### [address] [address] Spine Supervisor: Roderick Ricardo MD RBC (Bld) [#/Vol] 4.91 10*6/uL Normal 4.21-5.77 [facility] Comment on above: Performed By: #### C P, CDP, TROPI #### [address] [address] Spine Supervisor: Roderick Ricardo MD WBC (Bld) [#/Vol] 9.6 10*3/uL Normal 3.5-11.3 [facility] Comment on above: Performed By: #### C P, CDP, TROPI #### [address] [address] Spine Supervisor: Roderick Ricardo MD Comp Metabolic Profon 2023 Albumin [Mass/Vol] 4.7 g/dL Normal 3.5-5.2 [facility] Comment on above: Performed By: #### C P, CDP, TROPI #### [address] [address] Spine Supervisor: Roderick Ricardo MD Albumin/Glob Ratio 2.0 Normal 1.0-2.5 [facility] Comment on above: Performed By: #### C P, CDP, TROPI #### [address] [address] Spine Supervisor: Roderick Ricardo MD Alkaline Phos 83 U/L Normal 40-129 [facility] Comment on above: Performed By: #### C P, CDP, TROPI #### [address] [address] Spine Supervisor: Roderick Ricardo MD ALT [Catalytic activity/Vol] 10 U/L Normal 10-50 [facility] Comment on above: Performed By: #### C P, CDP, TROPI #### [address] [address] Spine Supervisor: Roderick Ricardo MD Anion gap [Moles/Vol] 14 mmol/L Normal 9-16 [facility] Comment on above: Performed By: #### C P, CDP, TROPI #### [address] [address] Spine Supervisor: Roderick Ricardo MD AST [Catalytic activity/Vol] 16 U/L Normal 10-50 [facility] Comment on above: Performed By: #### C P, CDP, TROPI #### [facility] [address] [place] [address] Spine Supervisor: Roderick Ricardo MD Bilirubin [Mass/Vol] 0.2 mg/dL Normal 0.00-1.20 [facility] Comment on above: Performed By: #### C P, CDP, TROPI #### [facility] [address] [place] [address] Spine Supervisor: Roderick Ricardo MD Calcium [Mass/Vol] 9.4 mg/dL Normal 8.6-10.4 [facility] Comment on above: Performed By: #### C P, CDP, TROPI #### [facility] [address] [place] [address] Spine Supervisor: Roderick Ricardo MD Chloride [Moles/Vol] 107 mmol/L Normal 98-107 [facility] Comment on above: Performed By: #### C P, CDP, TROPI #### [facility] [address] [place] [address] Spine Supervisor: Roderick Ricardo MD CO2 [Moles/Vol] 21 mmol/L Normal 20-31 [facility] Comment on above: Performed By: #### C P, CDP, TROPI #### [facility] [address] [place] [address] Spine Supervisor: Roderick Ricardo MD Creatinine [Mass/Vol] 0.8 mg/dL Normal 0.70-1.20 [facility] Comment on above: Performed By: #### C P, CDP, TROPI #### [address] [address] Spine Supervisor: Roderick Ricardo MD GFR/1.73 sq M.predicted domonique g non-blacks MDRD (S/P/Bld) [Vol rate/Area] mL/min/{1.73_m2} Normal >60 [facility] Comment on above: Result Comment: These [...] By: #### C P, CDP, TROPI #### [facility] [address] [place] [address] Spine Supervisor: Roderick Ricardo MD Glucose [Mass/Vol] 100 mg/dL High 74-99 [facility] Comment on above: Performed By: #### C P, CDP, TROPI #### [facility] [address] [place] [address] Spine Supervisor: Roderick Ricardo MD Potassium [Moles/Vol] 3.8 mmol/L Normal 3.7-5.3 [facility] Comment on above: Performed By: #### C P, CDP, TROPI #### [facility] [address] [place] [address] Spine Supervisor: Roderick Ricardo MD Protein [Mass/Vol] 7.4 g/dL Normal 6.6-8.7 [facility] Comment on above: Performed By: #### C P, CDP, TROPI #### [facility] [address] [place] [address] Spine Supervisor: Roderick Ricardo MD Sodium [Moles/Vol] 142 mmol/L Normal 136-145 [facility] Comment on above: Performed By: #### C P, CDP, TROPI #### [facility] [address] [place] [address] Spine Supervisor: Roderick Ricardo MD Urea nitrogen [Mass/Vol] 16 mg/dL Normal 6-20 [facility] Comment on above: Performed By: #### C P, CDP, TROPI #### [facility] [address] [place] [address] Spine Supervisor: Roderick Ricardo MD Troponinon 04-02-2024 Troponin, High Sens <6 Normal 0-22 [facility] Comment on above: Result Comment: High Sensitivity Troponin values cannot be compared with other Troponin methodologies. Performed By: #### T ROPI #### [facility] [address] [place], [place] [address] Spine Supervisor: Roderick Ricardo MD Troponin, High Sens <6 Normal 0-22 [facility] Comment on above: Result Comment: High Sensitivity Troponin values cannot be compared with other Troponin methodologies. Performed By: #### C P, CDP, TROPI #### [facility] [address] [place], [place] [id number] Spine Supervisor: Roderick Ricardo MD XR CHEST (2 VW)on [...] De Oca MD 04/02/24 Final result Normal [facility] ED Note-Physicianon 01-20-20 ED Note-Physician [id number]#[id number] Normal [facility] Patient Letter FTon 2023 Patient Letter [facility] October 28, 2023 REGIS HORTA [address] [place] [id number] : 1970 Dear Mr. Horta, I am [...] Office Sincerely, Dr. Varsha Peralta [facility] [address] [place] [place] [address] [facility] CBC auto differentialon Basophils (Bld) [#/Vol] 0.1 10*3/uL [facility] Basophils/100 WBC (Bld) 1.2 % [facility] Eosinophils (Bld) [#/Vol] 0.3 10*3/uL [facility] Eosinophils/100 WBC (Bld) 2.7 % [facility] Erythrocyte distribution wid th (RBC) [Ratio] 14.0 % 11.5 - 15.0 % [facility] Hematocrit (Bld) [Volume fraction] 41.7 % 39 - 49 % [facility] Hemoglobin (Bld) [Mass/Vol] 14.6 g/dL 13.0 - 17.0 g/dL [facility] Lymphocytes (Bld) [#/Vol] 3.2 10*3/uL [facility] Lymphocytes/100 WBC (Bld) 34.3 % [facility] MCH (RBC) [Entitic mass] 30.1 pg 27 - 34 pg [facility] MCHC (RBC) [Mass/Vol] 34.9 g/dL 32 - 3 6 g/dL [facility] MCV (RBC) [Entitic vol] 86 fL 80 - 100 fL [facility] Monocytes (Bld) [#/Vol] 0.8 10*3/uL [facility] Monocytes/100 WBC (Bld) 9.2 % [facility] Neutrophils (Bld) [#/Vol] 4.8 10*3/uL [facility] Neutrophils/100 WBC (Bld) 52.6 % [facility] Platelet mean volume (Bld) [Entitic vol] 7.5 fL 7 - 12 fL [facility] Platelets (Bld) [#/Vol] 349 10*3/uL [facility] RBC (Bld) [#/Vol] 4.83 10*6/uL [facility] WBC corrected for nucl RBC Auto (Bld) [#/Vol] 9.2 [facility] Comprehensive metabolic pane daniel 10-22-2023 Albumin [Mass/Vol] 4.2 g/dL 3.2 - 5.3 g/dL [facility] ALP [Catalytic activity/Vol] 57 U/L 39 - 130 U/L [facility] ALT No additional P-5'-P [Catalytic activity/Vol] 38 U/L 0 - 40 U/L [facility] Anion gap [Moles/Vol] 10 mmol/L 5 - 15 mmol/L [facility] AST [Catalytic activity/Vol] 23 U/L 0 - 41 U/L [facility] Bilirubin [Mass/Vol] 0.9 mg/dL 0.3 - 1 .2 mg/dL [facility] Calcium [Mass/Vol] 9.2 mg/dL 8.5 - 10. 5 mg/dL [facility] Chloride [Moles/Vol] 103 mmol/L 98 - 10 9 mmol/L [facility] CO2 [Moles/Vol] 25 mmol/L 22 - 32 mmol/L [facility] Creatinine [Mass/Vol] 0.94 mg/dL 0.70 - 1.20 mg/dL [facility] Comment on above: METHOD TRACEABLE TO [facility] STANDARD eGFR (CKD-EPI)non-race dependent - PINF [facility] Comment on above: Reported eGFR is based on the CKD-EPI 2020 equation that does not use a race coefficient. Glucose [Mass/Vol] 95 mg/dL 65 - 99 mg/dL [facility] Potassium [Moles/Vol] 4.0 mmol/L 3.5 - 5.0 mmol/L [facility] Protein [Mass/Vol] 6.8 g/dL 6.0 - 8.0 g/dL [facility] Sodium [Moles/Vol] 138 mmol/L 134 - 146 mmol/L [facility] Urea nitrogen [Mass/Vol] 22 mg/dL 5 - 23 mg/dL [facility] Magnesiumon 10-22-2023 Magnesium [Mass/Vol] 2.1 mg/dL 1.8 - 2 .6 mg/dL [facility] Magnesium [Mass/Vol]on 10-22 [facility] NM Heart Perfusion W stress and W radionuclide IVOrdered By: Selena Sabillon on 10-22-2023 Baseline BP 108/67 mmHg [employer] Work Phone: [phone] End diastolic volume (mL) 102 mL [employer] Work Phone: [phone] End systolic volume (mL) 55 mL [facility] Work Phone: [phone] HR 81 bpm [employer] Work Phone: [phone] HR 98 bpm [employer] Work Phone: [phone] Nuc Stress EF 46 % [facility] Work Phone: [phone] Peak BP 121/65 mmHg [employer] Work Phone: [phone] Percent HR 62 % [facility] Work Phone: [phone] Recovery BP 108/69 mmHg [facility] Work Phone: [phone] Stress peak HR 104 bpm [employer] Work Phone: [phone] Target HR 168 bpm [employer] Work Phone: [phone] TID 1.02 [facility] Work Phone: [phone] [facility] Work Phone: [phone] NM Heart Perfusion W stress and W [...] is 46%. [facility] Radiology Study observation (narrative) [facility] Cardiac echo study Procedure on 10-21-2023 Aortic root 3.40 cm [facility] AV mean gradient 3.00 mmHg [facility] AV peak gradient 6.05 mmHg [facility] AV peak cindy 123.00 cm/s [facility] AV valve area 1.31 cm2 [facility] AV Velocity Ratio 0.65 [facility] AV VTI 21.50 cm [facility] E wave deceleration time 227.00 msec [facility] Echo EF Estimated 49 % [facility] EF 49 % [facility] Energy loss index 0.91 [facility] Est. RA pressure 3 mmHg [facility] FS 26 % 28 - 44 % [facility] Inferior Vena Cava Diameter 1.17 cm [facility] Interventricular Septum Diastolic Thickness by 2D 8.826954975390881 cm [facility] IVC proximal 11.825966727421062 cm [facility] IVS 0.87 cm 0.6 - 1.1 cm [facility] LA size 3.90 cm [facility] LA volume 42.90 cm3 [facility] LA Volume Index 24.9 mL/m2 [facility] Left Ventricle Mass [id number] g [facility] LV Diastolic Volume 67.40 mL [facility] LV ESV A2C 42.10 mL [facility] LV ESV A4C 43.40 mL [facility] LV RWT 2D 33.88 [facility] LV Systolic Volume 34.10 mL [facility] LVIDd 4.90 cm 4.00 - 5.55 cm [facility] LVIDs 3.64 cm 2.37 - 3.59 cm [facility] LVOT diameter 1.60 cm [facility] LVOT peak cindy 0.81 m/s [facility] LVOT peak VTI 14.00 cm [facility] LVOT stroke volume 28.15 ml [facility] MV Peak E Cindy 74.00 cm/s [facility] MV pressure 1/2 time 67.00 ms [facility] MV TDI E' (medial) 8.90 cm/s [facility] MV valve area p 1/2 method 3.28 cm2 [facility] PW 0.83 cm 0.6 - 1.1 cm [facility] RA area 12.9 cm2 [facility] RV diastolic dimension (basal) 29.5 mm [facility] RVID d 3.0 cm [facility] TAPSE 1.48 cm [facility] TDI 11.40 cm/s [facility] Valve area - Index 0.8 [facility] ZLVIDD 0.40 [facility] ZLVIDS 1.75 [facility] Left Ventricle: Systolic function is mildly [...] ventricular wall motion is globally hypokinetic. XCELERA [facility] Radiology Study observation (narrative) [facility] Digoxin [Mass/Vol]on Interpretation and review of laboratory results Abnormal [facility] Digoxin levelon 10-21-2023 Digoxin [Mass/Vol] ng/mL Low 0.8 - 2.0 ng/mL [facility] Drug Screen, Urineon Amphetamines Screen method >1000 ng/mL Ql (U) Negative Negative^N egative [facility] Comment on above: AMPH/METH screening cut off = 1000 ng/mL Barbiturates Screen Ql (U) Negative N egative^N ative [facility] Comment on above: Barbiturates screeni ng cut off value = 200 ng/mL Benzodiazepines Ql (U) Negative Negat mercy^N ative [facility] Comment on above: Benzodiazepines scre ening cut off value = 200 ng/mL Cocaine Ql (U) Negative Negative^N ative [facility] Comment on above: Cocaine screening cu t off value = 300 ng/mL Methadone Screen Ql (U) Negative Nega tive^N [facility] Comment on above: Methadone screening cut off value = 300 ng/mL. Methylenedioxymethamphetamin e Screen Ql (U) Negative Negative^N [facility] Comment on above: Ecstasy screening cu t off value = 500 ng/mL This report is intended for use in clinical monitoring or management of patients. Opiates Screen Ql (U) Negative Negati ve^N [facility] Comment on above: Opiates screening cu t off value = 300 ng/mL NOTE: This test is used for the detection of codeine, hydrocodone (>1000 ng/mL), morphine and hydromorphone (>900 ng/mL) in urine. oxyCODONE Ql (U) Negative Negative^N [facility] Comment on above: Oxycodone screening cut off value = 300 ng/mL NOTE: This test is used for the detection of oxycodone and oxymorphone in urine. Phencyclidine Screen method >25 ng/mL Ql (U) Negative Negative^N [facility] Comment on above: Phencyclidine screen ing cut off value = 25 ng/mL Tetrahydrocannabinol Screen method >50 ng/mL Ql (U) Negative Negative^N [facility] Comment on above: Cannabinoids/THC scr eening cut off value = 50 ng/mL [facility] Thyroid profile includes TSH FT4on 10-21-2023 Free T4 [Mass/Vol] 0.68 ng/dL 0.61 - 1.60 ng/dL [facility] TSH Qn 2.27 m[IU]/L [facility] Troponin Ion 10-21-2023 Troponin I.cardiac [Mass/Vol] ng/mL 0.00 - 0.04 ng/mL [facility] Troponin I.cardiac [Mass/Vol] ng/mL 0.00 - 0.04 ng/mL [facility] Troponin I.cardiac [Mass/Vol ]on 10-21-2023 [facility] APTTon 10-20-2023 aPTT Coag (PPP) [Time] 34 s Pr [facility] Comment on above: NEW REFERENCE RANGE Basic Metabolic Panelon Anion gap [Moles/Vol] 9 mmol/L 5 - 15 mmol/L [facility] Calcium [Mass/Vol] 9.3 mg/dL 8.5 - 10. 5 mg/dL [facility] Chloride [Moles/Vol] 108 mmol/L 98 - 10 9 mmol/L [facility] CO2 [Moles/Vol] 21 mmol/L Low 22 - 32 mmol/L [facility] Creatinine [Mass/Vol] 0.94 mg/dL 0.70 - 1.20 mg/dL [facility] Comment on above: METHOD TRACEABLE TO [facility] STANDARD eGFR (CKD-EPI)non-race dependent - PINF [facility] Comment on above: Reported eGFR is based on the CKD-EPI 2020 equation that does not use a race coefficient. Glucose [Mass/Vol] 121 mg/dL High 65 - 99 mg/dL [facility] Interpretation and review of laboratory results Abnormal [facility] Potassium [Moles/Vol] 3.7 mmol/L 3.5 - 5.0 mmol/L [facility] Sodium [Moles/Vol] 138 mmol/L 134 - 146 mmol/L [facility] Urea nitrogen [Mass/Vol] 22 mg/dL 5 - 23 mg/dL [facility] CBC auto differentialon Basophils (Bld) [#/Vol] 0.1 10*3/uL [facility] Basophils/100 WBC (Bld) 1.4 % [facility] Eosinophils (Bld) [#/Vol] 0.2 10*3/uL [facility] Eosinophils/100 WBC (Bld) 2.2 % [facility] Erythrocyte distribution wid th (RBC) [Ratio] 14.4 % 11.5 - 15.0 % [facility] Hematocrit (Bld) [Volume fraction] 45.4 % 39 - 49 % [facility] Hemoglobin (Bld) [Mass/Vol] 15.5 g/dL 13.0 - 17.0 g/dL [facility] Interpretation and review of laboratory results Abnormal [facility] Lymphocytes (Bld) [#/Vol] 4.0 10*3/uL High [facility] Lymphocytes/100 WBC (Bld) 39.5 % [facility] MCH (RBC) [Entitic mass] 29.6 pg 27 - 34 pg [facility] MCHC (RBC) [Mass/Vol] 34.1 g/dL 32 - 3 6 g/dL [facility] MCV (RBC) [Entitic vol] 87 fL 80 - 100 fL [facility] Monocytes (Bld) [#/Vol] 0.9 10*3/uL [facility] Monocytes/100 WBC (Bld) 9.4 % [facility] Neutrophils (Bld) [#/Vol] 4.8 10*3/uL [facility] Neutrophils/100 WBC (Bld) 47.5 % [facility] Platelet mean volume (Bld) [Entitic vol] 7.5 fL 7 - 12 fL [facility] Platelets (Bld) [#/Vol] 351 10*3/uL [facility] RBC (Bld) [#/Vol] 5.22 10*6/uL [facility] WBC corrected for nucl RBC Auto (Bld) [#/Vol] 10.1 [facility] ECG 12 leadOrdered By: Yesy Bryant on 10-20-2023 [facility] Magnesiumon 10-20-2023 Magnesium [Mass/Vol] 2.3 mg/dL 1.8 - 2 .6 mg/dL [facility] No Panel Informationon 10-20 [facility] Protime & INRon 10-20-2023 INR Coag (PPP) [Relative time] 1.0 {INR} [facility] PT Coag (PPP) [Time] 11.5 s [facility] Comment on above: NEW REFERENCE RANGE [...] Lopez Quintanilla MD on 10/20/2023 11:55 PM [facility] Study observation (narrative) [facility] XR Chest Single viewOrdered By: Lopez Quintanilla on 10-20-2023 [facility] Work Phone: CHEMISTRYOrdered By: SYSTEM SYSTEM on 12-11-2022 Free PSA [Mass/Vol] 0.3 ng/mL Invalid Interpretation Code FT Remisol Free PSA/Total PSA [Mass fraction] 12.0 % Low >=25.0% [facility] Prostate specific Ag [Mass/Vol] 2.8 ng/mL Normal 0.1 - 3.5 ng/mL [facility] CBC AUTO DIFFon 11-19-2022 BASO # 0.1 103/ul Normal 0.0-0.1 [facility] Comment on above: Performed By: #### L ACT #### [facility] [address] [place] [address] Dr. Latia Rodriguez Basophils/100 WBC (Bld) 0.9 % Normal 0.2-2.0 [facility] Comment on above: Performed By: #### L ACT #### [facility] [address] [address] [address] Latia Rodriguez EO # 0.2 103/ul Normal 0.0-0.7 [facility] Comment on above: Performed By: #### L ACT #### [facility] [address] [place] [address] Dr. Latia Rodriguez Eosinophils/100 WBC (Bld) 1.8 % Normal 0.9-7.0 [facility] Comment on above: Performed By: #### L ACT #### [facility] [address] [place] [address] Dr. Latia Rodriguez Erythrocyte distribution wid th (RBC) [Ratio] 12.6 % Normal 11.0-15.0 [facility] Comment on above: Performed By: #### L ACT #### [facility] [address] [place] [address] Dr. Latia Rodriguez Hematocrit (Bld) [Volume fraction] 44.6 % Normal 42.0-54.0 [facility] Comment on above: Performed By: #### L ACT #### [facility] [address] [place] [address] Dr. Latia Rodriguez Hemoglobin (Bld) [Mass/Vol] 14.7 g/dL Normal 14.0-18. 0 [facility] Comment on above: Performed By: #### L ACT #### [facility] [address] [place] [address] Dr. Latia Rodriguez IG # 0.05 10e3/ul Critically high 0.00-0.03 [facility] Comment on above: Performed By: #### L ACT #### [facility] [address] [place] [address] Dr. Latia Rodriguez IG % 0.5 % Normal 0.0-0.5 [facility] Comment on above: Performed By: #### L ACT #### [facility] [address] [place] [address] Dr. Latia Rodriguez LYMPH # 3.7 103/ul Normal 1.2-3.8 [facility] Comment on above: Performed By: #### L ACT #### [facility] [address] [place] [address] Dr. Latia Rodriguez Lymphocytes/100 WBC (Bld) 35.1 % Normal 20.5-60.0 [facility] Comment on above: Performed By: #### L ACT #### [facility] [address] [place] [address] Dr. Latia Rodriguez MANUAL DIFF REQ NO Normal [facility] Comment on above: Performed By: #### L ACT #### [facility] [address] [place] [address] Dr. Latia Rodriguez MCH (RBC) [Entitic mass] 28.4 pg Normal 25.9-34.0 [facility] Comment on above: Performed By: #### L ACT #### [facility] [address] [place] [address] Dr. Latia Rodriguez MCHC (RBC) [Mass/Vol] 33.0 g/dL Normal 29.9-35.2 [facility] Comment on above: Performed By: #### L ACT #### [facility] [address] [place] [address] Dr. Latia Rodriguez MCV (RBC) [Entitic vol] 86.1 fL Normal 80.0-94.0 [facility] Comment on above: Performed By: #### L ACT #### [facility] [address] [place] [address] Dr. Latia Rodriguez MONO # 0.9 103/ul Critically high 0.3-0.8 [facility] Comment on above: Performed By: #### L ACT #### [facility] [address] [place] [address] Dr. Latia Rodriguez Monocytes/100 WBC (Bld) 8.8 % Normal 1.7-12.0 [facility] Comment on above: Performed By: #### L ACT #### [facility] [address] [place] [address] Dr. Latia Rodriguez NEUT # 5.6 103/ul Normal 1.4-6.5 [facility] Comment on above: Performed By: #### L ACT #### [facility] [address] [place] [address] Dr. Latia Rodriguez Neutrophils/100 WBC (Bld) 52.9 % Normal 43.0-75.0 [facility] Comment on above: Performed By: #### L ACT #### [facility] [address] [place] [address] Dr. Latia Rodriguez Platelet mean volume (Bld) [Entitic vol] 8.6 fL Critically low 9.5-13.5 [facility] Comment on above: Performed By: #### L ACT #### [facility] [address] [address] [address] Latia Rodriguez PLT 443 103/ul Normal 150-450 [facility] Comment on above: Performed By: #### L ACT #### [facility] [address] [place] [address] Dr. Latia Rodriguez RBC 5.18 106/ul Normal 4.70-6.10 [facility] Comment on above: Performed By: #### L ACT #### [facility] [address] [address] [address] Latia Rodriguez WBC 10.7 103/ul Normal 4.0-11.0 [facility] Comment on above: Performed By: #### L ACT #### [facility] [address] [place] [address] Dr. Latia Rodriguez PROF CHEM 8 (BAS METB)on Anion gap [Moles/Vol] 14.1 mmol/L Normal [facility] Comment on above: Performed By: #### L ACT #### [facility] [address] [place] [address] Dr. Latia Rodriguez Calcium [Mass/Vol] 9.4 mg/dL Normal 8.5-10.1 [facility] Comment on above: Performed By: #### L ACT #### [facility] [address] [place] [address] Dr. aLtia Rodriguez Chloride [Moles/Vol] 107 mmol/L Normal 98-107 [facility] Comment on above: Performed By: #### L ACT #### [facility] [address] [place] [address] Dr. Latia Rodriguez CO2 [Moles/Vol] 26.7 mmol/L Normal 21.0-32.0 [facility] Comment on above: Performed By: #### L ACT #### [facility] [address] [place] [address] Dr. Latia Rodriguez Creatinine [Mass/Vol] 1.05 mg/dL Normal 0.70-1.30 [facility] Comment on above: Performed By: #### L ACT #### [facility] [address] [place] [address] Dr. Latia Rodriguez EGFR-AF VINCENTIAN >60 Normal >=60 [facility] Comment on above: Performed By: #### L ACT #### [facility] [address] [place] [address] Dr. Latia Rodriguez EGFR-NON AF VINCENTIAN >60 Normal >=60 [facility] Comment on above: Performed By: #### L ACT #### [facility] [address] [place] [address] Dr. Latia Rodriguez Glucose [Mass/Vol] 149 mg/dL Critically high 74-106 [facility] Comment on above: Performed By: #### L ACT #### [facility] [address] [place] [address] Dr. Latia Rodriguez Potassium [Moles/Vol] 3.8 mmol/L Normal 3.5-5.1 [facility] Comment on above: Performed By: #### L ACT #### [facility] [address] [place] [address] Dr. Latia Rodriguez Sodium [Moles/Vol] 144 mmol/L Normal 136-145 [facility] Comment on above: Performed By: #### L ACT #### [facility] [address] [place] [address] Dr. Latia Rodriguez Urea nitrogen [Mass/Vol] 19.0 mg/dL Critically high 7.0-18 .0 [facility] Comment on above: Performed By: #### L ACT #### [facility] [address] [place] [address] Dr. Latia Rodriguez Urea nitrogen/Creatinine [Ma ss ratio] 18.1 mg/mg Normal [facility] Comment on above: Performed By: #### L ACT #### [facility] [address] [place] [address] Dr. Latia Rodriguez BNPon 07-14-2022 Natriuretic peptide B (Bld) [Mass/Vol] 686.0 pg/mL Normal <=900.0 [facility] Comment on above: Performed By: #### C MP, BNP, CMADM #### [facility] [address] [place] [address] Dr. Latia Rodriguez CARDIAC RAVEN ADMITon 022 CK [Catalytic activity/Vol] 53 U/L Normal 39-308 [facility] Comment on above: Performed By: #### C MP, BNP, CMADM #### [facility] [address] [address] [address] Latia Rodriguez CK.MB [Mass/Vol] 1.99 ng/mL Normal <=3.60 [facility] Comment on above: Performed By: #### C MP, BNP, CMADM #### [facility] [address] [address] [address] Latia Rodriguez HSTROP 86.2 pg/mL Critically high 4.0-76.1 [facility] Comment on above: Result Comment: CUT- OFF POINTS HAVE BEEN ESTABLISHED BASED ON THE FOURTH UNIVERSAL DEFINITIONS OF MYOCARDIAL INFARCTION. THE UPPER REFERENCE LIMIT (URL) OF TROPONIN, DEFINED THE 99TH PERCENTILE OF cTnI DISTRIBUTION IN A REFERENCE POPULATION, HAS BEEN CONFIRMED THE DECISION THRESHOLD FOR [place] DIAGNOSIS. Performed By: #### C MP, BNP, CMADM #### [facility] [address] [address] [address] Latia Rodriguez ZIYAD 43 ng/mL Normal 16-96 [facility] Comment on above: Performed By: #### C MP, BNP, CMADM #### [facility] [address] [address] [address] Latia Rodriguez CBC AUTO DIFFon 07-14-2022 BASO # 0.0 103/ul Normal 0.0-0.1 [facility] Comment on above: Performed By: #### L ACT #### [facility] [address] [address] [address] Latia Rodriguez Basophils/100 WBC (Bld) 0.1 % Critically low 0.2-2.0 [facility] Comment on above: Performed By: #### L ACT #### [facility] [address] [address] [address] Latia Rodriguez EO # 0.0 103/ul Normal 0.0-0.7 [facility] Comment on above: Performed By: #### L ACT #### [facility] [address] [place] [address] Dr. Latia Rodriguez Eosinophils/100 WBC (Bld) 0.0 % Critically low 0.9-7. 0 [facility] Comment on above: Performed By: #### L ACT #### [facility] [address] [place] [address] Dr. Latia Rodriguez Erythrocyte distribution wid th (RBC) [Ratio] 12.7 % Normal 11.0-15.0 [facility] Comment on above: Performed By: #### L ACT #### [facility] [address] [place] [address] Dr. Latia Rodriguez Hematocrit (Bld) [Volume fraction] 38.6 % Critically low 42.0-54.0 [facility] Comment on above: Performed By: #### L ACT #### [facility] [address] [place] [address] Dr. Latia Rodriguez Hemoglobin (Bld) [Mass/Vol] 12.6 g/dL Critically low 14.0 -18.0 [facility] Comment on above: Performed By: #### L ACT #### [facility] [address] [place] [address] Dr. Latia Rodriguez IG # 0.13 10e3/ul Critically high 0.00-0.03 [facility] Comment on above: Performed By: #### L ACT #### [facility] [address] [place] [address] Dr. Latia Rodriguez IG % 0.6 % Critically high 0.0-0.5 [facility] Comment on above: Performed By: #### L ACT #### [facility] [address] [place] [address] Dr. Latia Rodriguez LYMPH # 1.2 103/ul Normal 1.2-3.8 [facility] Comment on above: Performed By: #### L ACT #### [facility] [address] [place] [address] Dr. Latia Rodriguez Lymphocytes/100 WBC (Bld) 5.7 % Critically low 20.5-6 0.0 [facility] Comment on above: Performed By: #### L ACT #### [facility] [address] [place] [address] Dr. Latia Rodriguez MANUAL DIFF REQ NO Normal [facility] Comment on above: Performed By: #### L ACT #### [facility] [address] [place] [address] Dr. Latia Rodriguez MCH (RBC) [Entitic mass] 29.2 pg Normal 25.9-34.0 [facility] Comment on above: Performed By: #### L ACT #### [facility] [address] [place] [address] Dr. Latia Rodriguez MCHC (RBC) [Mass/Vol] 32.6 g/dL Normal 29.9-35.2 [facility] Comment on above: Performed By: #### L ACT #### [facility] [address] [place] [address] Dr. Latia Rodriguez MCV (RBC) [Entitic vol] 89.4 fL Normal 80.0-94.0 [facility] Comment on above: Performed By: #### L ACT #### [facility] [address] [place] [address] Dr. Latia Rodriguez MONO # 0.8 103/ul Normal 0.3-0.8 [facility] Comment on above: Performed By: #### L ACT #### [facility] [address] [place] [address] Dr. Latia Rodriguez Monocytes/100 WBC (Bld) 4.0 % Normal 1.7-12.0 [facility] Comment on above: Performed By: #### L ACT #### [facility] [address] [place] [address] Dr. Latia Rodriguez NEUT # 18.4 103/ul Critically high 1.4-6.5 [facility] Comment on above: Performed By: #### L ACT #### [facility] [address] [place] [address] Dr. Latia Rodriguez Neutrophils/100 WBC (Bld) 89.6 % Critically high 43.0- 75.0 [facility] Comment on above: Performed By: #### L ACT #### [facility] [address] [address] [address] Latia Rodriguez Platelet mean volume (Bld) [Entitic vol] 9.2 fL Critically low 9.5-13.5 [facility] Comment on above: Performed By: #### L ACT #### [facility] [address] [address] [address] Latia Rodriguez PLT 461 103/ul Critically high 150-450 [facility] Comment on above: Performed By: #### L ACT #### [facility] [address] [address] [address] Latia Rodriguez RBC 4.32 106/ul Critically low 4.70-6.10 [facility] Comment on above: Performed By: #### L ACT #### [facility] [address] [place] [address] Dr. Latia Rodriguez WBC 20.6 103/ul Critically high 4.0-11.0 [facility] Comment on above: Performed By: #### L ACT #### [facility] [address] [place] [address] Dr. Latia Rodriguez PROF 14(COMP METB)on 022 Albumin [Mass/Vol] 2.9 g/dL Critically low 3.4-5.0 [facility] Comment on above: Performed By: #### C MP, BNP, CMADM #### [facility] [address] [place] [address] Dr. Latia Rodriguez Albumin/Globulin [Mass ratio] 1.0 {ratio} Normal [facility] Comment on above: Performed By: #### C MP, BNP, CMADM #### [facility] [address] [place] [address] Dr. Latia Rodriguez ALP [Catalytic activity/Vol] 59 U/L Normal 46-116 [facility] Comment on above: Performed By: #### C MP, BNP, CMADM #### [facility] [address] [place] [address] Dr. Latia Rodriguez ALT [Catalytic activity/Vol] 30 U/L Normal 16-63 [facility] Comment on above: Performed By: #### C MP, BNP, CMADM #### [facility] [address] [address] [address] Latia Rodriguez Anion gap [Moles/Vol] 14.9 mmol/L Normal [facility] Comment on above: Performed By: #### C MP, BNP, CMADM #### [facility] [address] [address] [address] Latia Rodriguez AST [Catalytic activity/Vol] 8 U/L Critically low 15- 37 [facility] Comment on above: Performed By: #### C MP, BNP, CMADM #### [facility] [address] [address] [address] Latia Rodriguez Bilirubin [Mass/Vol] 0.2 mg/dL Normal 0.2-1.0 [facility] Comment on above: Performed By: #### C MP, BNP, CMADM #### [facility] [address] [address] [address] Latia Rodriguez Calcium [Mass/Vol] 8.5 mg/dL Normal 8.5-10.1 [facility] Comment on above: Performed By: #### C MP, BNP, CMADM #### [facility] [address] [address] [address] Latia Rodriguez Chloride [Moles/Vol] 105 mmol/L Normal 98-107 [facility] Comment on above: Performed By: #### C MP, BNP, CMADM #### [facility] [address] [address] [address] Latia Rodriguez CO2 [Moles/Vol] 23.5 mmol/L Normal 21.0-32.0 [facility] Comment on above: Performed By: #### C MP, BNP, CMADM #### [facility] [address] [address] [address] Latia Rodriguez Creatinine [Mass/Vol] 1.16 mg/dL Normal 0.70-1.30 [facility] Comment on above: Performed By: #### C MP, BNP, CMADM #### [facility] [address] [address] [address] Latia Rodriguez EGFR-AF VINCENTIAN >60 Normal >=60 [facility] Comment on above: Performed By: #### C MP, BNP, CMADM #### [facility] [address] [place] [address] Dr. Latia Rodriguez EGFR-NON AF VINCENTIAN >60 Normal >=60 [facility] Comment on above: Performed By: #### C MP, BNP, CMADM #### [facility] [address] [place] [address] Dr. Latia Rodriguez Globulin (S) [Mass/Vol] 2.9 g/dL Normal [facility] Comment on above: Performed By: #### C MP, BNP, CMADM #### [facility] [address] [place] [address] Dr. Latia Rodriguez Glucose [Mass/Vol] 226 mg/dL Critically high 74-106 [facility] Comment on above: Performed By: #### C MP, BNP, CMADM #### [facility] [address] [place] [address] Dr. Latia Rodriguez Potassium [Moles/Vol] 3.4 mmol/L Critically low 3.5-5.1 [facility] Comment on above: Performed By: #### C MP, BNP, CMADM #### [facility] [address] [place] [address] Dr. Latia Rodriguez Protein [Mass/Vol] 5.8 g/dL Critically low 6.4-8.2 [facility] Comment on above: Performed By: #### C MP, BNP, CMADM #### [facility] [address] [place] [address] Dr. Latia Rodriguez Sodium [Moles/Vol] 140 mmol/L Normal 136-145 [facility] Comment on above: Performed By: #### C MP, BNP, CMADM #### [facility] [address] [place] [address] Dr. Latia Rodriguez Urea nitrogen [Mass/Vol] 15.0 mg/dL Normal 7.0-18.0 [facility] Comment on above: Performed By: #### C MP, BNP, CMADM #### [facility] [address] [place], [place] [id number] Dr. Latia Rodriguez Urea nitrogen/Creatinine [Ma ss ratio] 12.9 mg/mg Normal [facility] Comment on above: Performed By: #### C MP, BNP, CMADM #### [facility] [address] [place] [address] Dr. Latia Rodriguez BNPon 07-13-2022 Natriuretic peptide B (Bld) [Mass/Vol] 501.0 pg/mL Normal <=900.0 [facility] Comment on above: Performed By: #### P OCGLUC #### [facility] [address] [place] [address] Dr. Latia Rodriguez CARDIAC RAVEN 3-6on 2 CK [Catalytic activity/Vol] 111 U/L Normal 39-308 [facility] Comment on above: Performed By: #### C MREP #### [facility] [address] [place] [address] Dr. Latia Rodriguez CK.MB [Mass/Vol] 2.71 ng/mL Normal <=3.60 [facility] Comment on above: Performed By: #### C MREP #### [facility] [address] [place] [address] Dr. Latia Rodriguez HSTROP 348.1 pg/mL Critically high 4.0-76.1 [facility] Comment on above: Result Comment: CUT- OFF POINTS HAVE BEEN ESTABLISHED BASED ON THE FOURTH UNIVERSAL DEFINITIONS OF MYOCARDIAL INFARCTION. THE UPPER REFERENCE LIMIT (URL) OF TROPONIN, DEFINED THE 99TH PERCENTILE OF cTnI DISTRIBUTION IN A REFERENCE POPULATION, HAS BEEN CONFIRMED THE DECISION THRESHOLD FOR [place] DIAGNOSIS. Performed By: #### C MREP #### [facility] [address] [place] [address] Dr. Latia Rodriguez CARDIAC RAVEN ADMITon 022 CK [Catalytic activity/Vol] 91 U/L Normal 39-308 [facility] Comment on above: Performed By: #### P OCGLUC #### [facility] [address] [place] [address] Dr. Latia Rodriguez CK.MB [Mass/Vol] 3.11 ng/mL Normal <=3.60 [facility] Comment on above: Performed By: #### P OCGLUC #### [facility] [address] [place] [address] Dr. Latia Rodriguez HSTROP 326.9 pg/mL Critically high 4.0-76.1 [facility] Comment on above: Result Comment: CUT- OFF POINTS HAVE BEEN ESTABLISHED BASED ON THE FOURTH UNIVERSAL DEFINITIONS OF MYOCARDIAL INFARCTION. THE UPPER REFERENCE LIMIT (URL) OF TROPONIN, DEFINED THE 99TH PERCENTILE OF cTnI DISTRIBUTION IN A REFERENCE POPULATION, HAS BEEN CONFIRMED THE DECISION THRESHOLD FOR WA DIAGNOSIS. Performed By: #### P OCGLUC #### [facility] [address] [place] [address] Dr. Latia Rodriguez ZIYAD 41 ng/mL Normal 16-96 [facility] Comment on above: Performed By: #### P OCGLUC #### [facility] [address] [place] [address] Dr. Latia Rodriguez CBC AUTO DIFFon 07-13-2022 BASO # 0.0 103/ul Normal 0.0-0.1 [facility] Comment on above: Performed By: #### C BC #### [facility] [address] [place] [address] Dr. Latia Rodriguez Basophils/100 WBC (Bld) 0.2 % Normal 0.2-2.0 [facility] Comment on above: Performed By: #### C BC #### [facility] [address] [place] [address] Dr. Latia Rodriguez EO # 0.0 103/ul Normal 0.0-0.7 [facility] Comment on above: Performed By: #### C BC #### [facility] [address] [place] [address] Dr. Latia Rodriguez Eosinophils/100 WBC (Bld) 0.1 % Critically low 0.9-7. 0 [facility] Comment on above: Performed By: #### C BC #### [facility] [address] [place] [address] Dr. Latia Rodriguez Erythrocyte distribution wid th (RBC) [Ratio] 12.8 % Normal 11.0-15.0 [facility] Comment on above: Performed By: #### C BC #### [facility] [address] [place] [address] Dr. Latia Rodriguez Hematocrit (Bld) [Volume fraction] 45.4 % Normal 42.0-54.0 [facility] Comment on above: Performed By: #### C BC #### [facility] [address] [place] [address] Dr. Latia Rodriguez Hemoglobin (Bld) [Mass/Vol] 14.8 g/dL Normal 14.0-18. 0 [facility] Comment on above: Performed By: #### C BC #### [facility] [address] [place] [address] Dr. Latia Rodriguez IG # 0.05 10e3/ul Critically high 0.00-0.03 [facility] Comment on above: Performed By: #### C BC #### [facility] [address] [place] [address] Dr. Latia Rodriguez IG % 0.6 % Critically high 0.0-0.5 [facility] Comment on above: Performed By: #### C BC #### [facility] [address] [place] [address] Dr. Latia Rodriguez LYMPH # 0.8 103/ul Critically low 1.2-3.8 [facility] Comment on above: Performed By: #### C BC #### [facility] [address] [place] [address] Dr. Latia Rodriguez Lymphocytes/100 WBC (Bld) 8.4 % Critically low 20.5-6 0.0 [facility] Comment on above: Performed By: #### C BC #### [facility] [address] [place] [address] Dr. Latia Rodriguez MANUAL DIFF REQ NO Normal [facility] Comment on above: Performed By: #### C BC #### [facility] [address] [place] [address] Dr. Latia Rodriguez MCH (RBC) [Entitic mass] 29.4 pg Normal 25.9-34.0 [facility] Comment on above: Performed By: #### C BC #### [facility] [address] [address] [address] Latia Rodriguez MCHC (RBC) [Mass/Vol] 32.6 g/dL Normal 29.9-35.2 [facility] Comment on above: Performed By: #### C BC #### [facility] [address] [address] [address] Latia Rodriguez MCV (RBC) [Entitic vol] 90.3 fL Normal 80.0-94.0 [facility] Comment on above: Performed By: #### C BC #### [facility] [address] [address] [address] Latia Rodriguez MONO # 0.1 103/ul Critically low 0.3-0.8 [facility] Comment on above: Performed By: #### C BC #### [facility] [address] [place] [address] Dr. Latia Rodriguez Monocytes/100 WBC (Bld) 1.0 % Critically low 1.7-12.0 [facility] Comment on above: Performed By: #### C BC #### [facility] [address] [place] [address] Dr. Latia Rodriguez NEUT # 8.0 103/ul Critically high 1.4-6.5 [facility] Comment on above: Performed By: #### C BC #### [facility] [address] [place] [address] Dr. Latia Rodriguez Neutrophils/100 WBC (Bld) 89.7 % Critically high 43.0- 75.0 [facility] Comment on above: Performed By: #### C BC #### [facility] [address] [place] [address] Dr. Latia Rodriguez Platelet mean volume (Bld) [Entitic vol] 9.3 fL Critically low 9.5-13.5 [facility] Comment on above: Performed By: #### C BC #### [facility] [address] [place] [address] Dr. Latia Rodriguez PLT 406 103/ul Normal 150-450 [facility] Comment on above: Performed By: #### C BC #### [facility] [address] [place], [place] [address] Dr. Latia Rodriguez RBC 5.03 106/ul Normal 4.70-6.10 [facility] Comment on above: Performed By: #### C BC #### [facility] [address] [place], [place] [address] Dr. Latia Rodriguez WBC 9.0 103/ul Normal 4.0-11.0 [facility] Comment on above: Performed By: #### C BC #### [facility] [address] [place], [place] [address] Dr. Latia Rodriguez ECHOCARDIO M/2D COMPLETEon 1 ECHOCARDIO M/2D COMPLETE Patient: REGIS GUZMAN Exam Date: 07/13/2022 : 1970 Gender:M Ordering : DR MELVIN PEREZ . Admission #: [id number] Family : Order #: [id number] CLICK HERE TO VIEW EXAM ECHOCARDIOGRAM REPORT [...] Blanchard M.D. on 07/18/2022 at 11:36 Normal [facility] PROF 14(COMP METB)on 07-13- 022 Albumin [Mass/Vol] 3.1 g/dL Critically low 3.4-5.0 [facility] Comment on above: Performed By: #### P OCGLUC #### [facility] [address] [address] [address] Latia Rodriguez Albumin/Globulin [Mass ratio] 0.9 {ratio} Normal [facility] Comment on above: Performed By: #### P OCGLUC #### [facility] [address] [address] [address] Latia Rodriguez ALP [Catalytic activity/Vol] 80 U/L Normal 46-116 [facility] Comment on above: Performed By: #### P OCGLUC #### [facility] [address] [address] [address] Latia Rodriguez ALT [Catalytic activity/Vol] 34 U/L Normal 16-63 [facility] Comment on above: Performed By: #### P OCGLUC #### [facility] [address] [address] [address] Latia Rodriguez Anion gap [Moles/Vol] 13.0 mmol/L Normal [facility] Comment on above: Performed By: #### P OCGLUC #### [facility] [address] [address] [address] Latia Rodriguez AST [Catalytic activity/Vol] 16 U/L Normal 15-37 [facility] Comment on above: Performed By: #### P OCGLUC #### [facility] [address] [address] [address] Latia Rodriguez Bilirubin [Mass/Vol] 0.5 mg/dL Normal 0.2-1.0 [facility] Comment on above: Performed By: #### P OCGLUC #### [facility] [address] [place] [address] Dr. Latia Rodriguez Calcium [Mass/Vol] 7.8 mg/dL Critically low 8.5-10.1 [facility] Comment on above: Performed By: #### P OCGLUC #### [facility] [address] [address] [address] Latia Rodriguez Chloride [Moles/Vol] 107 mmol/L Normal 98-107 [facility] Comment on above: Performed By: #### P OCGLUC #### [facility] [address] [address] [address] Latia Rodriguez CO2 [Moles/Vol] 23.8 mmol/L Normal 21.0-32.0 [facility] Comment on above: Performed By: #### P OCGLUC #### [facility] [address] [address] [address] Latia Rodriguez Creatinine [Mass/Vol] 0.97 mg/dL Normal 0.70-1.30 [facility] Comment on above: Performed By: #### P OCGLUC #### [facility] [address] [address] [address] Latia Rodriguez EGFR-AF VINCENTIAN >60 Normal >=60 [facility] Comment on above: Performed By: #### P OCGLUC #### [facility] [address] [address] [address] Latia Rodriguez EGFR-NON AF VINCENTIAN >60 Normal >=60 [facility] Comment on above: Performed By: #### P OCGLUC #### [facility] [address] [address] [address] Latia Rodriguez Globulin (S) [Mass/Vol] 3.3 g/dL Normal [facility] Comment on above: Performed By: #### P OCGLUC #### [facility] [address] [address] [address] Latia Rodriguez Glucose [Mass/Vol] 161 mg/dL Critically high 74-106 [facility] Comment on above: Performed By: #### P OCGLUC #### [facility] [address] [address] [address] Latia Rodriguez Potassium [Moles/Vol] 3.8 mmol/L Normal 3.5-5.1 [facility] Comment on above: Performed By: #### P OCGLUC #### [facility] [address] [address] [address] Latia Rodriguez Protein [Mass/Vol] 6.4 g/dL Normal 6.4-8.2 [facility] Comment on above: Performed By: #### P OCGLUC #### [facility] [address] [address] [address] Latia Rodriguez Sodium [Moles/Vol] 140 mmol/L Normal 136-145 [facility] Comment on above: Performed By: #### P OCGLUC #### [facility] [address] [address] [address] Latia Rodriguez Urea nitrogen [Mass/Vol] 13.0 mg/dL Normal 7.0-18.0 [facility] Comment on above: Performed By: #### P OCGLUC #### [facility] [address] [address] [address] Latia Rodriguez Urea nitrogen/Creatinine [Ma ss ratio] 13.4 mg/mg Normal [facility] Comment on above: Performed By: #### P OCGLUC #### [facility] [address] [address] [address] Latia Rodriguez XR CHEST 2 Von [...] GERARDO ABARCA Date: 2022-07-13 14:16 Normal [facility] ACETAMINOPHENon 07-12-2022 Acetaminophen [Mass/Vol] ug/mL Critically low 10.0-30 .0 [facility] Comment on above: Performed By: #### P OCGLUC #### [facility] [address] [address] [address] Latia Rodriguez ACETONE SERUMon 07-12-2022 ACETONE Negative Normal NEGATIVE [facility] Comment on above: Performed By: #### D IG #### [facility] [address] [place] [address] Dr. Latia Rodriguez BNPon 07-12-2022 Natriuretic peptide B (Bld) [Mass/Vol] 42.0 pg/mL Normal <=900.0 [facility] Comment on above: Performed By: #### D IG #### [facility] [address] [place] [address] Dr. Latia Rodriguez CARDIAC RAVEN 3-6on 2 CK [Catalytic activity/Vol] 111 U/L Normal 39-308 [facility] Comment on above: Performed By: #### L ACT #### [facility] [address] [place] [address] Dr. Latia Rodriguez CK.MB [Mass/Vol] 2.64 ng/mL Normal <=3.60 [facility] Comment on above: Performed By: #### L ACT #### [facility] [address] [place] [address] Dr. Latia Rodriguez HSTROP 159.4 pg/mL Critically high 4.0-76.1 [facility] Comment on above: Result Comment: CUT- OFF POINTS HAVE BEEN ESTABLISHED BASED ON THE FOURTH UNIVERSAL DEFINITIONS OF MYOCARDIAL INFARCTION. THE UPPER REFERENCE LIMIT (URL) OF TROPONIN, DEFINED THE 99TH PERCENTILE OF cTnI DISTRIBUTION IN A REFERENCE POPULATION, HAS BEEN CONFIRMED THE DECISION THRESHOLD FOR [place] DIAGNOSIS. Performed By: #### L ACT #### [facility] [address] [place] [address] Dr. Latia Rodriguez CBC AUTO DIFFon 07-12-2022 BASO # 0.1 103/ul Normal 0.0-0.1 [facility] Comment on above: Performed By: #### L ACT #### [facility] [address] [place] [address] Dr. Ltaia Rodriguez Basophils/100 WBC (Bld) 0.5 % Normal 0.2-2.0 [facility] Comment on above: Performed By: #### L ACT #### [facility] [address] [place] [address] Dr. Latia Rodriguez EO # 0.2 103/ul Normal 0.0-0.7 [facility] Comment on above: Performed By: #### L ACT #### [facility] [address] [place] [address] Dr. Latia Rodriguez Eosinophils/100 WBC (Bld) 1.4 % Normal 0.9-7.0 [facility] Comment on above: Performed By: #### L ACT #### [facility] [address] [place] [address] Dr. Latia Rodriguez Erythrocyte distribution wid th (RBC) [Ratio] 12.9 % Normal 11.0-15.0 [facility] Comment on above: Performed By: #### L ACT #### [facility] [address] [place] [address] Dr. Latia Rodriguez Hematocrit (Bld) [Volume fraction] 42.5 % Normal 42.0-54.0 [facility] Comment on above: Performed By: #### L ACT #### [facility] [address] [place] [address] Dr. Latia Rodriguez Hemoglobin (Bld) [Mass/Vol] 14.0 g/dL Normal 14.0-18. 0 [facility] Comment on above: Performed By: #### L ACT #### [facility] [address] [place] [address] Dr. Latia Rodriguez IG # 0.05 10e3/ul Critically high 0.00-0.03 [facility] Comment on above: Performed By: #### L ACT #### [facility] [address] [place] [address] Dr. Latia Rodriguez IG % 0.5 % Normal 0.0-0.5 [facility] Comment on above: Performed By: #### L ACT #### [facility] [address] [place] [address] Dr. Latia Rodriguez LYMPH # 1.8 103/ul Normal 1.2-3.8 [facility] Comment on above: Performed By: #### L ACT #### [facility] [address] [place] [address] Dr. Latia Rodriguez Lymphocytes/100 WBC (Bld) 16.2 % Critically low 20.5-6 0.0 [facility] Comment on above: Performed By: #### L ACT #### [facility] [address] [place] [address] Dr. Latia Rodriguez MANUAL DIFF REQ NO Normal [facility] Comment on above: Performed By: #### L ACT #### [facility] [address] [place] [address] Dr. Latia Rodriguez MCH (RBC) [Entitic mass] 29.4 pg Normal 25.9-34.0 [facility] Comment on above: Performed By: #### L ACT #### [facility] [address] [place] [address] Dr. Latia Rodriguez MCHC (RBC) [Mass/Vol] 32.9 g/dL Normal 29.9-35.2 [facility] Comment on above: Performed By: #### L ACT #### [facility] [address] [place] [address] Dr. Latia Rodriguez MCV (RBC) [Entitic vol] 89.3 fL Normal 80.0-94.0 [facility] Comment on above: Performed By: #### L ACT #### [facility] [address] [place] [address] Dr. aLtia Rodriguez MONO # 0.7 103/ul Normal 0.3-0.8 [facility] Comment on above: Performed By: #### L ACT #### [facility] [address] [place] [address] Dr. Latia Rodriguez Monocytes/100 WBC (Bld) 6.7 % Normal 1.7-12.0 [facility] Comment on above: Performed By: #### L ACT #### [facility] [address] [place] [address] Dr. Latia Rodriguez NEUT # 8.3 103/ul Critically high 1.4-6.5 [facility] Comment on above: Performed By: #### L ACT #### [facility] [address] [place] [address] Dr. Latia Rodriguez Neutrophils/100 WBC (Bld) 74.7 % Normal 43.0-75.0 [facility] Comment on above: Performed By: #### L ACT #### [facility] [address] [place] [address] Dr. Latia Rodriguez Platelet mean volume (Bld) [Entitic vol] 8.5 fL Critically low 9.5-13.5 [facility] Comment on above: Performed By: #### L ACT #### [facility] [address] [address] [address] Latia Rodriguez PLT 394 103/ul Normal 150-450 [facility] Comment on above: Performed By: #### L ACT #### [facility] [address] [place] [address] Dr. Latia Rodriguez RBC 4.76 106/ul Normal 4.70-6.10 [facility] Comment on above: Performed By: #### L ACT #### [facility] [address] [place] [address] Dr. Latia Rodriguez WBC 11.1 103/ul Critically high 4.0-11.0 [facility] Comment on above: Performed By: #### L ACT #### [facility] [address] [place] [address] CSPINE WO CONon [...] KODY MACIEL Date: 2022-07-12 16:38 Normal [facility] CT HEAD WO CONon 07-12-2022 CT HEAD [...] ALYSSIA ORONA Date: 2022-07-12 16:20 Normal [facility] CULTURE BLOODon 07-12-2022 Microscopic examination of blood, culture Culture Observations: NO GROWTH AT 5 DAYS. Normal [facility] Comment on above: Performed By: #### C MREP #### [facility] [address] [address] [address] Latia Rodriguez Microscopic examination of blood, culture Culture Observations: NO GROWTH AT 5 DAYS. Normal [facility] Comment on above: Performed By: #### C MREP #### [facility] [address] [address] [address] Latia Rodriguez [facility] SARS-CoV-2 (COVID-19) RNA KATHARINA+probe Ql (Unsp spec) Not detected Normal NOT DETECTED [facility] Comment on above: Result Comment: When diagnostic [...] for this test is supported by the Manager Fraud of Health and Human Service's declaration that [...] used). Performed By: #### L ACT #### [facility] [address] [place] [address] Dr. Latia Rodriguez DIGOXINon 07-12-2022 DIG <0.2 Critically low 0.9-2.0 [facility] Comment on above: Performed By: #### D IG #### [facility] [address] [place] [address] Dr. Latia Rodriguez DRUG SCREEN RAPID (URINE)on 07-12-2022 AMP Positive Abnormal NEGATIVE [facility] Comment on above: Performed By: #### T 3TOTAL #### [facility] [address] [place] [address] Dr. Latia Rodriguez BAR Negative Normal NEGATIVE [facility] Comment on above: Performed By: #### T 3TOTAL #### [facility] [address] [place] [address] Dr. Latia Rodriguez BUP Negative Normal NEGATIVE [facility] Comment on above: Performed By: #### T 3TOTAL #### [facility] [address] [place] [address] Dr. Latia Rodriguez BZO Positive Abnormal NEGATIVE [facility] Comment on above: Performed By: #### T 3TOTAL #### [facility] [address] [place] [address] Dr. Latia Rodriguez MYRTLE Negative Normal NEGATIVE [facility] Comment on above: Performed By: #### T 3TOTAL #### [facility] [address] [place] [address] Dr. Latia Rodriguez CUT-OFFS SEE BELOW Normal [facility] Comment on above: Result Comment: AMP (Amphetamine): 500ng/mL, BAR (Barbituates): 200 ng/mL, BZO (Benzodiazepines): 150 ng/mL, BUP (Buprenorphine): 10 ng/mL, MYRTLE (Cocaine): 150 ng/mL, mAMP (Methamphetamine): 500 ng/mL, MTD (Methadone): 200 ng/mL, OPI (Opiates): 100 ng/mL, OXY (Oxycodone): 100 ng/mL, PCP (Phencyclidine): 25 ng/mL, PPX (Propoxyphene): 300 ng/mL, THC (Cannabinoids): 50 ng/mL, TCA (Trycyclic Antidepressants): 300 ng/mL Performed By: #### T 3TOTAL #### [facility] [address] [place] [address] Dr. Latia Rodriguez DRUG CUT HEADER DRUG CLASS TEST SYSTEM CUT-OFF CONCENTRATIONS ARE FOLLOWS: Normal [facility] Comment on above: Performed By: #### T 3TOTAL #### [facility] [address] [place] [address] Dr. Latia Rodriguez mAMP Positive Abnormal NEGATIVE [facility] Comment on above: Performed By: #### T 3TOTAL #### [facility] [address] [place] [address] Dr. Latia Rodriguez MTD Negative Normal NEGATIVE [facility] Comment on above: Performed By: #### T 3TOTAL #### [facility] [address] [place] [address] Dr. Latia Rodriguez OPI Positive Abnormal NEGATIVE [facility] Comment on above: Performed By: #### T 3TOTAL #### [facility] [address] [place] [address] Dr. Latia Rodriguez OXY Negative Normal NEGATIVE [facility] Comment on above: Performed By: #### T 3TOTAL #### [facility] [address] [place] [address] Dr. Latia Rodriguez PCP Negative Normal NEGATIVE [facility] Comment on above: Performed By: #### T 3TOTAL #### [facility] [address] [place] [address] Dr. Latia Rodriguez PPX Negative Normal NEGATIVE [facility] Comment on above: Performed By: #### T 3TOTAL #### [facility] [address] [place] [address] Dr. Latia Rodriguez TCA Negative Normal NEGATIVE [facility] Comment on above: Performed By: #### T 3TOTAL #### [facility] [address] [place], [place] [id number] Dr. Latia Rodriguez THC Negative Normal NEGATIVE [facility] Comment on above: Performed By: #### T 3TOTAL #### [facility] [address] [place] [address] Dr. Latia Rodriguez ER URINE PROFILEon 2 Bilirubin Ql (U) Negative Normal NEGATIVE [facility] Comment on above: Performed By: #### T 3TOTAL #### [facility] [address] [place] [address] Dr. Latia Rodriguez Clarity (U) CLEAR Normal CLEAR [facility] Comment on above: Performed By: #### T 3TOTAL #### [facility] [address] [place], [place] [address] Dr. Latia Rodriguez Color (U) LT. YELLOW Normal YELLOW [facility] Comment on above: Performed By: #### T 3TOTAL #### [facility] [address] [place] [address] Dr. Latia SHERMAN A micrscopic examination will be performed if indicated. Normal [facility] Comment on above: Performed By: #### T 3TOTAL #### [facility] [address] [place] [address] Dr. Latia Rodriguez Glucose Ql (U) Negative Normal NEGATIVE [facility] Comment on above: Performed By: #### T 3TOTAL #### [facility] [address] [place] [address] Dr. Latia Rodriguez Hemoglobin Ql (U) Negative Normal NEGATIVE [facility] Comment on above: Performed By: #### T 3TOTAL #### [facility] [address] [place] [address] Dr. Latia Rodriguez Ketones Ql (U) Negative Normal NEGATIVE [facility] Comment on above: Performed By: #### T 3TOTAL #### [facility] [address] [place] [address] Dr. Latia Rodriguez LEUKOCYTES Negative Normal NEGATIVE [facility] Comment on above: Performed By: #### T 3TOTAL #### [facility] [address] [place] [address] Dr. Latia Rodriguez Nitrite Ql (U) Negative Normal NEGATIVE [facility] Comment on above: Performed By: #### T 3TOTAL #### [facility] [address] [place] [address] Dr. Latia Rodriguez pH (U) 6.0 [pH] Normal 5-9 [facility] Comment on above: Performed By: #### T 3TOTAL #### [facility] [address] [place] [address] Dr. Latia Rodriguez SPEC GRAVITY 1.025 Normal 1.005-<=1. 025 [facility] Comment on above: Performed By: #### T 3TOTAL #### [facility] [address] [place] [address] Dr. Latia Rodriguez UA PROTEIN Negative Normal NEGATIVE/ TRACE [facility] Comment on above: Performed By: #### T 3TOTAL #### [facility] [address] [place] [address] Dr. Latia Rodriguez UR MICRO IND NOT INDICATED Normal [facility] Comment on above: Performed By: #### T 3TOTAL #### [facility] [address] [place] [address] Dr. Latia Rodriguez Urobilinogen Qn (U) 0.2 {Chance'U}/dL Normal 0.2 - 1. 0 [facility] Comment on above: Performed By: #### T 3TOTAL #### [facility] [address] [place] [address] Dr. Latia Rodriguez ETHANOL (BLD ALC)on 07-12-20 ALC NOTE NOTE: 80 mg/dl is the legal limit for a blood alcohol level Normal [facility] Comment on above: Performed By: #### T 3TOTAL #### [facility] [address] [place] [address] Dr. Latia Rodriguez Ethanol [Mass/Vol] mg/dL Normal [facility] Comment on above: Performed By: #### T 3TOTAL #### [facility] [address] [place] [address] Dr. Latia Rodriguez LACTATE/LACTIC ACIDon 2021 Lactate [Moles/Vol] 0.9 mmol/L Normal 0.4-1.9 [facility] Comment on above: Performed By: #### T 3TOTAL #### [facility] [address] [address] [address] Latia Rodriguez Lactate [Moles/Vol] 1.0 mmol/L Normal 0.4-1.9 [facility] Comment on above: Performed By: #### P OCGLUC #### [facility] [address] [place] [address] Dr. Latia Rodriguez PH VENOUS BLOODon 07-12-2022 PCO2 VENOUS 46.3 mmHg Normal 40.0-52.0 [facility] Comment on above: Performed By: #### D IG #### [facility] [address] [address] [address] Latia Rodriguez pH VENOUS 7.314 Critically low 7.330-7.43 0 [facility] Comment on above: Performed By: #### D IG #### [facility] [address] [place] [address] Dr. Latia Rodriguez PROF 14(COMP METB)on 022 Albumin [Mass/Vol] 3.5 g/dL Normal 3.4-5.0 [facility] Comment on above: Performed By: #### P OCGLUC #### [facility] [address] [place] [address] Dr. Latia Rodriguez Albumin/Globulin [Mass ratio] 1.1 {ratio} Normal [facility] Comment on above: Performed By: #### P OCGLUC #### [facility] [address] [address] [address] Latia Rodriguez ALP [Catalytic activity/Vol] 74 U/L Normal 46-116 [facility] Comment on above: Performed By: #### P OCGLUC #### [facility] [address] [address] [address] Latia Rodriguez ALT [Catalytic activity/Vol] 44 U/L Normal 16-63 [facility] Comment on above: Performed By: #### P OCGLUC #### [facility] [address] [place] [address] Dr. Latia Rodriguez Anion gap [Moles/Vol] 9.0 mmol/L Normal [facility] Comment on above: Performed By: #### P OCGLUC #### [facility] [address] [address] [address] Latia Rodriguez AST [Catalytic activity/Vol] 32 U/L Normal 15-37 [facility] Comment on above: Performed By: #### P OCGLUC #### [facility] [address] [address] [address] Latia Rodriguez Bilirubin [Mass/Vol] 0.3 mg/dL Normal 0.2-1.0 [facility] Comment on above: Performed By: #### P OCGLUC #### [facility] [address] [address] [address] Latia Rodriguez Calcium [Mass/Vol] 8.3 mg/dL Critically low 8.5-10.1 [facility] Comment on above: Performed By: #### P OCGLUC #### [facility] [address] [address] [address] Latia Rodriguez Chloride [Moles/Vol] 105 mmol/L Normal 98-107 [facility] Comment on above: Performed By: #### P OCGLUC #### [facility] [address] [address] [address] Latia Rodriguez CO2 [Moles/Vol] 27.8 mmol/L Normal 21.0-32.0 [facility] Comment on above: Performed By: #### P OCGLUC #### [facility] [address] [address] [address] Latia Rodriguez Creatinine [Mass/Vol] 1.08 mg/dL Normal 0.70-1.30 [facility] Comment on above: Performed By: #### P OCGLUC #### [facility] [address] [address] [address] Latia Rodriguez EGFR-AF VINCENTIAN >60 Normal >=60 [facility] Comment on above: Performed By: #### P OCGLUC #### [facility] [address] [address] [address] Latia Rodriguez EGFR-NON AF VINCENTIAN >60 Normal >=60 [facility] Comment on above: Performed By: #### P OCGLUC #### [facility] [address] [address] [address] Latia Rodriguez Globulin (S) [Mass/Vol] 3.2 g/dL Normal [facility] Comment on above: Performed By: #### P OCGLUC #### [facility] [address] [address] [address] Latia Rodriguez Glucose [Mass/Vol] 135 mg/dL Critically high 74-106 [facility] Comment on above: Performed By: #### P OCGLUC #### [facility] [address] [address] [address] Latia Rodriguez Potassium [Moles/Vol] 4.8 mmol/L Normal 3.5-5.1 [facility] Comment on above: Performed By: #### P OCGLUC #### [facility] [address] [address] [address] Latia Rodriguez Protein [Mass/Vol] 6.7 g/dL Normal 6.4-8.2 [facility] Comment on above: Performed By: #### P OCGLUC #### [facility] [address] [address] [address] Latia Rodriguez Sodium [Moles/Vol] 137 mmol/L Normal 136-145 [facility] Comment on above: Performed By: #### P OCGLUC #### [facility] [address] [address] [address] Latia Rodriguez Urea nitrogen [Mass/Vol] 16.0 mg/dL Normal 7.0-18.0 [facility] Comment on above: Performed By: #### P OCGLUC #### [facility] [address] [address] [address] Latia Rodriguez Urea nitrogen/Creatinine [Ma ss ratio] 14.8 mg/mg Normal [facility] Comment on above: Performed By: #### P OCGLUC #### [facility] [address] [address] [address] Latia Rodriguez PROTIMEon 07-12-2022 INR Coag (PPP) [Relative time] 1.04 {INR} Normal [facility] Comment on above: Performed By: #### P OCGLUC #### [facility] [address] [place] [address] Dr. Latia Rodriguez INR GUIDELINES SEE BELOW Normal [facility] Comment on above: Result Comment: ANIVAL RED INR: 2.0 - 3.0 CONDITIONS NOT LISTED BELOW 2.5 - 3.5 FOR PROSTHETIC HEART VALVE REPLACEMENT 2.5 - 3.5 RECURRENT THROMBOSIS Performed By: #### P OCGLUC #### [facility] [address] [place] [address] Dr. Latia Rodriguez PT Coag (PPP) [Time] 11.2 s Normal 9.0-11.6 [facility] Comment on above: Performed By: #### P OCGLUC #### [facility] [address] [place] [address] Dr. Latia Rodriguez PTTon 07-12-2022 aPTT Coag (Bld) [Time] 25.8 s Normal 22.3-36.2 [facility] Comment on above: Performed By: #### P OCGLUC #### [facility] [address] [place] [address] Dr. Latia Rodriguez SALICYLATEon 07-12-2022 SALICYLATE <2.8 Normal <=19.9 [facility] Comment on above: Performed By: #### P OCGLUC #### [facility] [address] [place] [address] Dr. Latia Rodriguez TROPONIN, HIGH SENSITIVITYon 07-12-2022 HSTROP 19.0 pg/mL Normal 4.0-76.1 [facility] Comment on above: Result Comment: CUT- OFF POINTS HAVE BEEN ESTABLISHED BASED ON THE FOURTH UNIVERSAL DEFINITIONS OF MYOCARDIAL INFARCTION. THE UPPER REFERENCE LIMIT (URL) OF TROPONIN, DEFINED THE 99TH PERCENTILE OF cTnI DISTRIBUTION IN A REFERENCE POPULATION, HAS BEEN CONFIRMED THE DECISION THRESHOLD FOR [place] DIAGNOSIS. Performed By: #### P OCGLUC #### [facility] [address] [place] [address] Dr. Latia Rodriguez TSHon 07-12-2022 TSH 3.195 uIU/mL Normal 0.358-3.74 0 [facility] Comment on above: Performed By: #### P OCGLUC #### [facility] [id number] Latia Rodriguez XR CHEST 1 Von [...] KODY MACIEL Date: 2022-07-12 16:32 Normal [facility] CARDIAC RAVEN ADMITon 022 CK [Catalytic activity/Vol] 47 U/L Normal 39-308 [facility] Comment on above: Performed By: #### C MREP #### [facility] [address] [address] [address] Latia Rodriguez CK.MB [Mass/Vol] 1.09 ng/mL Normal <=3.60 [facility] Comment on above: Performed By: #### C MREP #### [facility] [address] [address] [address] Latia Rodriguez HSTROP 58.7 pg/mL Normal 4.0-76.1 [facility] Comment on above: Result Comment: CUT- OFF POINTS HAVE BEEN ESTABLISHED BASED ON THE FOURTH UNIVERSAL DEFINITIONS OF MYOCARDIAL INFARCTION. THE UPPER REFERENCE LIMIT (URL) OF TROPONIN, DEFINED THE 99TH PERCENTILE OF cTnI DISTRIBUTION IN A REFERENCE POPULATION, HAS BEEN CONFIRMED THE DECISION THRESHOLD FOR WA DIAGNOSIS. Performed By: #### C MREP #### [facility] [address] [address] [address] Latia Rodriguez ZIYAD 22 ng/mL Normal 16-96 [facility] Comment on above: Performed By: #### C MREP #### [facility] [address] [address] [address] Latia Rodriguez CBC AUTO DIFFon 05-27-2022 BASO # 0.1 103/ul Normal 0.0-0.1 [facility] Comment on above: Performed By: #### P OCGLUC #### [facility] [address] [address] [address] Latia Rodriguez Basophils/100 WBC (Bld) 1.0 % Normal 0.2-2.0 [facility] Comment on above: Performed By: #### P OCGLUC #### [facility] [address] [address] [address] Latia Rodriguez EO # 0.4 103/ul Normal 0.0-0.7 [facility] Comment on above: Performed By: #### P OCGLUC #### [facility] [address] [place] [address] Dr. Latia Rodriguez Eosinophils/100 WBC (Bld) 4.0 % Normal 0.9-7.0 [facility] Comment on above: Performed By: #### P OCGLUC #### [facility] [address] [address] [address] Latia Rodriguez Erythrocyte distribution wid th (RBC) [Ratio] 13.0 % Normal 11.0-15.0 [facility] Comment on above: Performed By: #### P OCGLUC #### [facility] [address] [place] [address] Dr. Latia Rodriguez Hematocrit (Bld) [Volume fraction] 43.7 % Normal 42.0-54.0 [facility] Comment on above: Performed By: #### P OCGLUC #### [facility] [address] [address] [address] Latia Rodriguez Hemoglobin (Bld) [Mass/Vol] 14.5 g/dL Normal 14.0-18. 0 [facility] Comment on above: Performed By: #### P OCGLUC #### [facility] [address] [place] [address] Dr. Latia Rodriguez IG # 0.05 10e3/ul Critically high 0.00-0.03 [facility] Comment on above: Performed By: #### P OCGLUC #### [facility] [address] [address] [address] Latia Rodriguez IG % 0.5 % Normal 0.0-0.5 [facility] Comment on above: Performed By: #### P OCGLUC #### [facility] [address] [place] [address] Dr. Latia Rodriguez LYMPH # 3.8 103/ul Normal 1.2-3.8 [facility] Comment on above: Performed By: #### P OCGLUC #### [facility] [address] [place] [address] Dr. Latia Rodriguez Lymphocytes/100 WBC (Bld) 37.4 % Normal 20.5-60.0 [facility] Comment on above: Performed By: #### P OCGLUC #### [facility] [address] [place] [address] Dr. Latia Rodriguez MANUAL DIFF REQ NO Normal [facility] Comment on above: Performed By: #### P OCGLUC #### [facility] [address] [place] [address] Dr. Latia Rodriguez MCH (RBC) [Entitic mass] 29.8 pg Normal 25.9-34.0 [facility] Comment on above: Performed By: #### P OCGLUC #### [facility] [address] [place] [address] Dr. Latia Rodriguez MCHC (RBC) [Mass/Vol] 33.2 g/dL Normal 29.9-35.2 [facility] Comment on above: Performed By: #### P OCGLUC #### [facility] [address] [place] [address] Dr. Latia Rodriguez MCV (RBC) [Entitic vol] 89.9 fL Normal 80.0-94.0 [facility] Comment on above: Performed By: #### P OCGLUC #### [facility] [address] [place] [address] Dr. Latia Rodriguez MONO # 0.8 103/ul Normal 0.3-0.8 [facility] Comment on above: Performed By: #### P OCGLUC #### [facility] [address] [address] [address] Latia Rodriguez Monocytes/100 WBC (Bld) 7.5 % Normal 1.7-12.0 [facility] Comment on above: Performed By: #### P OCGLUC #### [facility] [address] [address] [address] Latia Rodriguez NEUT # 5.0 103/ul Normal 1.4-6.5 [facility] Comment on above: Performed By: #### P OCGLUC #### [facility] [address] [address] [address] Latia Rodriguez Neutrophils/100 WBC (Bld) 49.6 % Normal 43.0-75.0 [facility] Comment on above: Performed By: #### P OCGLUC #### [facility] [address] [place] [address] Dr. Latia Rodriguez Platelet mean volume (Bld) [Entitic vol] 9.0 fL Critically low 9.5-13.5 [facility] Comment on above: Performed By: #### P OCGLUC #### [facility] [address] [place] [address] Dr. Latia Rodriguez PLT 374 103/ul Normal 150-450 [facility] Comment on above: Performed By: #### P OCGLUC #### [facility] [address] [address] [address] Latia Rodriguez RBC 4.86 106/ul Normal 4.70-6.10 [facility] Comment on above: Performed By: #### P OCGLUC #### [facility] [address] [address] [address] Latia Rodriguez WBC 10.0 103/ul Normal 4.0-11.0 [facility] Comment on above: Performed By: #### P OCGLUC #### [facility] [address] [place] [address] Dr. Latia Rodriguez DIGOXINon 05-27-2022 DIG 1.0 ng/mL Normal 0.9-2.0 [facility] Comment on above: Performed By: #### C MREP #### [facility] [address] [address] [address] Latia Rodriguez PROF 14(COMP METB)on 022 Albumin [Mass/Vol] g/dL Normal 3.4-5.0 [facility] Comment on above: Performed By: #### C MREP #### [facility] [address] [address] [address] Latia Rodriguez Albumin/Globulin [Mass ratio] 1.2 {ratio} Normal [facility] Comment on above: Performed By: #### C MREP #### [facility] [address] [address] [address] Latia Rodriguez ALP [Catalytic activity/Vol] 84 U/L Normal 46-116 [facility] Comment on above: Performed By: #### C MREP #### [facility] [address] [place] [address] Dr. Latia Rodriguez ALT [Catalytic activity/Vol] 76 U/L Critically high 16 -63 [facility] Comment on above: Performed By: #### C MREP #### [facility] [address] [place] [address] Dr. Latia Rodriguez Anion gap [Moles/Vol] 12.7 mmol/L Normal [facility] Comment on above: Performed By: #### C MREP #### [facility] [address] [place] [address] Dr. Latia Rodriguez AST [Catalytic activity/Vol] 27 U/L Normal 15-37 [facility] Comment on above: Performed By: #### C MREP #### [facility] [address] [place] [address] Dr. Latia Rodriguez Bilirubin [Mass/Vol] 0.3 mg/dL Normal 0.2-1.0 [facility] Comment on above: Performed By: #### C MREP #### [facility] [address] [place] [address] Dr. Latia Rodriguez Calcium [Mass/Vol] 8.7 mg/dL Normal 8.5-10.1 [facility] Comment on above: Performed By: #### C MREP #### [facility] [address] [address] [address] Latia Rodriguez Chloride [Moles/Vol] 107 mmol/L Normal 98-107 [facility] Comment on above: Performed By: #### C MREP #### [facility] [address] [address] [address] Latia Rodriguez CO2 [Moles/Vol] 26.5 mmol/L Normal 21.0-32.0 [facility] Comment on above: Performed By: #### C MREP #### [facility] [address] [address] [address] Latia Rodriguez Creatinine [Mass/Vol] 0.91 mg/dL Normal 0.70-1.30 [facility] Comment on above: Performed By: #### C MREP #### [facility] [address] [place] [address] Dr. Latia Rodriguez EGFR-AF VINCENTIAN >60 Normal >=60 [facility] Comment on above: Performed By: #### C MREP #### [facility] [address] [place] [address] Dr. Latia Rodriguez EGFR-NON AF VINCENTIAN >60 Normal >=60 [facility] Comment on above: Performed By: #### C MREP #### [facility] [address] [place] [address] Dr. Latia Rodriguez Globulin (S) [Mass/Vol] 2.9 g/dL Normal [facility] Comment on above: Performed By: #### C MREP #### [facility] [address] [place] [address] Dr. Latia Rodriguez Glucose [Mass/Vol] 108 mg/dL Critically high 74-106 [facility] Comment on above: Performed By: #### C MREP #### [facility] [address] [place] [address] Dr. Latia Rodriguez Potassium [Moles/Vol] 4.2 mmol/L Normal 3.5-5.1 [facility] Comment on above: Performed By: #### C MREP #### [facility] [address] [place] [address] Dr. Latia Rodriguez Protein [Mass/Vol] 6.3 g/dL Critically low 6.4-8.2 [facility] Comment on above: Performed By: #### C MREP #### [facility] [address] [place] [address] Dr. Latia Rodriguez Sodium [Moles/Vol] 142 mmol/L Normal 136-145 [facility] Comment on above: Performed By: #### C MREP #### [facility] [address] [place] [address] Dr. Latia Rodriguez Urea nitrogen [Mass/Vol] 15.0 mg/dL Normal 7.0-18.0 [facility] Comment on above: Performed By: #### C MREP #### [facility] [address] [place] [address] Dr. Latia Rodriguez Urea nitrogen/Creatinine [Ma ss ratio] 16.5 mg/mg Normal [facility] Comment on above: Performed By: #### C MREP #### [facility] [address] [place] [address] Dr. Latia Rodriguez T3, TOTAL (TRIIODOTHYRONINE) on 05-27-2022 T3, TOTAL 198 ng/dL Critically high 71-180 [facility] Comment on above: Performed By: #### T 3TOTAL #### [facility] [address] [place] [address] Dr. Latia Rodriguez T4 LABCORPon 05-27-2022 T4 [Mass/Vol] 9.0 ug/dL Normal 4.5-12.0 [facility] Comment on above: Performed By: #### C MREP #### [facility] [address] [place] [address] Dr. Latia Rodriguez AMYLASEon 05-26-2022 Amylase [Catalytic activity/Vol] 44 U/L Normal 25-115 [facility] Comment on above: Performed By: #### T 3TOTAL #### [facility] [address] [place] [address] Dr. Latia Rodriguez BNPon 05-26-2022 Natriuretic peptide B (Bld) [Mass/Vol] 122.0 pg/mL Normal <=900.0 [facility] Comment on above: Performed By: #### T 3TOTAL #### [facility] [address] [place] [address] Dr. Latia Rodriguez CARDIAC RAVEN 3-6on 2 CK [Catalytic activity/Vol] 58 U/L Normal 39-308 [facility] Comment on above: Performed By: #### L ACT #### [facility] [address] [place] [address] Dr. Latia Rodriguez CK.MB [Mass/Vol] 1.49 ng/mL Normal <=3.60 [facility] Comment on above: Performed By: #### L ACT #### [facility] [address] [place] [address] Dr. Latia Rodriguez HSTROP 57.2 pg/mL Normal 4.0-76.1 [facility] Comment on above: Result Comment: CUT- OFF POINTS HAVE BEEN ESTABLISHED BASED ON THE FOURTH UNIVERSAL DEFINITIONS OF MYOCARDIAL INFARCTION. THE UPPER REFERENCE LIMIT (URL) OF TROPONIN, DEFINED THE 99TH PERCENTILE OF cTnI DISTRIBUTION IN A REFERENCE POPULATION, HAS BEEN CONFIRMED THE DECISION THRESHOLD FOR [place] DIAGNOSIS. Performed By: #### L ACT #### [facility] [address] [place] [address] Dr. Latia Rodriguez CK [Catalytic activity/Vol] 65 U/L Normal 39-308 [facility] Comment on above: Performed By: #### D IG #### [facility] [address] [place] [address] Dr. Latia Rodriguez CK.MB [Mass/Vol] 1.30 ng/mL Normal <=3.60 [facility] Comment on above: Performed By: #### D IG #### [facility] [address] [place] [address] Dr. Latia Rodriguez HSTROP 44.2 pg/mL Normal 4.0-76.1 [facility] Comment on above: Result Comment: CUT- OFF POINTS HAVE BEEN ESTABLISHED BASED ON THE FOURTH UNIVERSAL DEFINITIONS OF MYOCARDIAL INFARCTION. THE UPPER REFERENCE LIMIT (URL) OF TROPONIN, DEFINED THE 99TH PERCENTILE OF cTnI DISTRIBUTION IN A REFERENCE POPULATION, HAS BEEN CONFIRMED THE DECISION THRESHOLD FOR [place] DIAGNOSIS. Performed By: #### D IG #### [facility] [address] [address] [address] Latia Rodriguez CARDIAC RAVEN ADMITon 022 CK [Catalytic activity/Vol] 72 U/L Normal 39-308 [facility] Comment on above: Performed By: #### T 3TOTAL #### [facility] [address] [place] [address] Dr. Latia Rodriguez CK.MB [Mass/Vol] 1.04 ng/mL Normal <=3.60 [facility] Comment on above: Performed By: #### T 3TOTAL #### [facility] [address] [place] [address] Dr. Latia Rodriguez HSTROP 23.5 pg/mL Normal 4.0-76.1 [facility] Comment on above: Result Comment: CUT- OFF POINTS HAVE BEEN ESTABLISHED BASED ON THE FOURTH UNIVERSAL DEFINITIONS OF MYOCARDIAL INFARCTION. THE UPPER REFERENCE LIMIT (URL) OF TROPONIN, DEFINED THE 99TH PERCENTILE OF cTnI DISTRIBUTION IN A REFERENCE POPULATION, HAS BEEN CONFIRMED THE DECISION THRESHOLD FOR WA DIAGNOSIS. Performed By: #### T 3TOTAL #### [facility] [address] [place] [address] Dr. Latia Rodriguez ZIYAD 46 ng/mL Normal 16-96 [facility] Comment on above: Performed By: #### T 3TOTAL #### [facility] [address] [place] [address] Dr. Latia Rodriguez CBC AUTO DIFFon 05-26-2022 BASO # 0.1 103/ul Normal 0.0-0.1 [facility] Comment on above: Performed By: #### C MREP #### [facility] [address] [place] [address] Dr. Latia Rodriguez Basophils/100 WBC (Bld) 0.6 % Normal 0.2-2.0 [facility] Comment on above: Performed By: #### C MREP #### [facility] [address] [place] [address] Dr. Latia Rodriguez EO # 0.4 103/ul Normal 0.0-0.7 [facility] Comment on above: Performed By: #### C MREP #### [facility] [address] [place] [address] Dr. Latia Rodriguez Eosinophils/100 WBC (Bld) 4.3 % Normal 0.9-7.0 [facility] Comment on above: Performed By: #### C MREP #### [facility] [address] [place] [address] Dr. Latia Rodriguez Erythrocyte distribution wid th (RBC) [Ratio] 12.7 % Normal 11.0-15.0 [facility] Comment on above: Performed By: #### C MREP #### [facility] [address] [place] [address] Dr. Latia Rodriguez Hematocrit (Bld) [Volume fraction] 42.7 % Normal 42.0-54.0 [facility] Comment on above: Performed By: #### C MREP #### [facility] [address] [place] [address] Dr. Latia Rodriguez Hemoglobin (Bld) [Mass/Vol] 14.3 g/dL Normal 14.0-18. 0 [facility] Comment on above: Performed By: #### C MREP #### [facility] [address] [place] [address] Dr. Latia Rodriguez IG # 0.05 10e3/ul Critically high 0.00-0.03 [facility] Comment on above: Performed By: #### C MREP #### [facility] [address] [place] [address] Dr. Latia Rodriguez IG % 0.5 % Normal 0.0-0.5 [facility] Comment on above: Performed By: #### C MREP #### [facility] [address] [place] [address] Dr. Latia Rodriguez LYMPH # 3.4 103/ul Normal 1.2-3.8 [facility] Comment on above: Performed By: #### C MREP #### [facility] [address] [place] [address] Dr. Latia Rodriguez Lymphocytes/100 WBC (Bld) 36.4 % Normal 20.5-60.0 [facility] Comment on above: Performed By: #### C MREP #### [facility] [address] [place] [address] Dr. Latia Rodriguez MANUAL DIFF REQ NO Normal [facility] Comment on above: Performed By: #### C MREP #### [facility] [address] [place] [address] Dr. Latia Rodriguez MCH (RBC) [Entitic mass] 29.7 pg Normal 25.9-34.0 [facility] Comment on above: Performed By: #### C MREP #### [facility] [address] [place] [address] Dr. Latia Rodriguez MCHC (RBC) [Mass/Vol] 33.5 g/dL Normal 29.9-35.2 [facility] Comment on above: Performed By: #### C MREP #### [facility] [address] [place] [address] Dr. Latia Rodriguez MCV (RBC) [Entitic vol] 88.8 fL Normal 80.0-94.0 [facility] Comment on above: Performed By: #### C MREP #### [facility] [address] [place] [address] Dr. Latia Rodriguez MONO # 0.8 103/ul Normal 0.3-0.8 [facility] Comment on above: Performed By: #### C MREP #### [facility] [address] [place] [address] Dr. Latia Rodriguez Monocytes/100 WBC (Bld) 8.6 % Normal 1.7-12.0 [facility] Comment on above: Performed By: #### C MREP #### [facility] [address] [place] [address] Dr. Latia Rodriguez NEUT # 4.7 103/ul Normal 1.4-6.5 [facility] Comment on above: Performed By: #### C MREP #### [facility] [address] [place] [address] Dr. Latia Rodriguez Neutrophils/100 WBC (Bld) 49.6 % Normal 43.0-75.0 [facility] Comment on above: Performed By: #### C MREP #### [facility] [address] [address] [address] Latia Rodriguez Platelet mean volume (Bld) [Entitic vol] 8.9 fL Critically low 9.5-13.5 [facility] Comment on above: Performed By: #### C MREP #### [facility] [address] [address] [address] Latia Rodriguez PLT 417 103/ul Normal 150-450 [facility] Comment on above: Performed By: #### C MREP #### [facility] [address] [address] [address] Latia Rodriguez RBC 4.81 106/ul Normal 4.70-6.10 [facility] Comment on above: Performed By: #### C MREP #### [facility] [address] [address] [address] Latia Rodriguez WBC 9.5 103/ul Normal 4.0-11.0 [facility] Comment on above: Performed By: #### C MREP #### [facility] [address] [address] [address] Latia Rodriguez CULTURE URINEon 05-26-2022 CULTURE URINE Culture Observations: NO GROWTH. Normal [facility] Comment on above: Performed By: #### C MREP #### [facility] [address] [place] [address] Dr. Latia Rodriguez Covid-19 PCR ([facility])on 05-17 SARS-CoV-2 (COVID-19) RNA KATHARINA+probe Ql (Unsp spec) Not detected Normal NOT DETECTED [facility] Comment on above: Result Comment: When diagnostic [...] for this test is supported by the Manager Fraud of Health and Human Service's declaration that [...] used). Performed By: #### D IG #### [facility] [address] [place] [address] Dr. Latia Rodriguez DRUG SCREEN RAPID (URINE)on 05-26-2022 AMP Positive Abnormal NEGATIVE [facility] Comment on above: Performed By: #### L ACT #### [facility] [address] [place] [address] Dr. Latia Rodriguez BAR Negative Normal NEGATIVE [facility] Comment on above: Performed By: #### L ACT #### [facility] [address] [place] [address] Dr. Latia Rodriguez BUP Negative Normal NEGATIVE [facility] Comment on above: Performed By: #### L ACT #### [facility] [address] [place] [address] Dr. Latia Rodriguez BZO Negative Normal NEGATIVE [facility] Comment on above: Performed By: #### L ACT #### [facility] [address] [place] [address] Dr. Latia Rodriguez MYRTLE Negative Normal NEGATIVE [facility] Comment on above: Performed By: #### L ACT #### [facility] [address] [place] [address] Dr. Latia Rodriguez CUT-OFFS SEE BELOW Normal [facility] Comment on above: Result Comment: AMP (Amphetamine): 500ng/mL, BAR (Barbituates): 200 ng/mL, BZO (Benzodiazepines): 150 ng/mL, BUP (Buprenorphine): 10 ng/mL, MYRTLE (Cocaine): 150 ng/mL, mAMP (Methamphetamine): 500 ng/mL, MTD (Methadone): 200 ng/mL, OPI (Opiates): 100 ng/mL, OXY (Oxycodone): 100 ng/mL, PCP (Phencyclidine): 25 ng/mL, PPX (Propoxyphene): 300 ng/mL, THC (Cannabinoids): 50 ng/mL, TCA (Trycyclic Antidepressants): 300 ng/mL Performed By: #### L ACT #### [facility] [address] [place] [address] Dr. Latia Rodriguez DRUG CUT HEADER DRUG CLASS TEST SYSTEM CUT-OFF CONCENTRATIONS ARE FOLLOWS: Normal [facility] Comment on above: Performed By: #### L ACT #### [facility] [address] [place] [address] Dr. Latia Rodriguez mAMP Positive Abnormal NEGATIVE [facility] Comment on above: Performed By: #### L ACT #### [facility] [address] [place] [address] Dr. Latia Rodriguez MTD Negative Normal NEGATIVE [facility] Comment on above: Performed By: #### L ACT #### [facility] [address] [place] [address] Dr. Latia Rodriguez OPI Negative Normal NEGATIVE [facility] Comment on above: Performed By: #### L ACT #### [facility] [address] [place] [address] Dr. Latia Rodriguez OXY Negative Normal NEGATIVE [facility] Comment on above: Performed By: #### L ACT #### [facility] [address] [place] [address] Dr. Latia Rodriguez PCP Negative Normal NEGATIVE [facility] Comment on above: Performed By: #### L ACT #### [facility] [address] [place] [address] Dr. Latia Rodriguez PPX Negative Normal NEGATIVE [facility] Comment on above: Performed By: #### L ACT #### [facility] [address] [place] [address] Dr. Latia Rodriguez TCA Negative Normal NEGATIVE [facility] Comment on above: Performed By: #### L ACT #### [facility] [address] [place] [address] Dr. Latia Rodriguez THC Negative Normal NEGATIVE [facility] Comment on above: Performed By: #### L ACT #### [facility] [address] [address] [address] Latia Rodriguez LACTATE/LACTIC ACIDon 2021 Lactate [Moles/Vol] 1.2 mmol/L Normal 0.4-1.9 [facility] Comment on above: Performed By: #### L ACT #### [facility] [address] [place] [address] Dr. Latia Rodriguez LIPASEon 05-26-2022 Lipase [Catalytic activity/Vol] 113.0 U/L Normal 73.0-393.0 [facility] Comment on above: Performed By: #### T 3TOTAL #### [facility] [address] [place] [address] Dr. Latia Rodriguez MAGNESIUMon 05-26-2022 Magnesium [Mass/Vol] 2.0 mg/dL Normal 1.8-2.4 [facility] Comment on above: Performed By: #### T 3TOTAL #### [facility] [address] [place] [address] Dr. Latia Rodriguez POINT OF CARE GLUCOSEon 05-17 Glucose [Mass/Vol] 192 mg/dL Critically high 74-106 [facility] Comment on above: Performed By: #### P OCGLUC #### [facility] [address] [place] [address] Dr. Latia Rodriguez Glucose [Mass/Vol] 137 mg/dL Critically high -106 [facility] Comment on above: Performed By: #### P OCGLUC #### [facility] [address] [place] [address] Dr. Latia Rodriguez Glucose [Mass/Vol] 108 mg/dL Critically high 74-106 [facility] Comment on above: Performed By: #### L ACT #### [facility] [address] [place] [address] Dr. Latia Rodriguez PROF 14(COMP METB)on 022 Albumin [Mass/Vol] 3.7 g/dL Normal 3.4-5.0 [facility] Comment on above: Performed By: #### P OCGLUC #### [facility] [address] [place] [address] Dr. Latia Rodriguez Albumin/Globulin [Mass ratio] 1.0 {ratio} Normal [facility] Comment on above: Performed By: #### P OCGLUC #### [facility] [address] [address] [address] Latia Rodriguez ALP [Catalytic activity/Vol] 100 U/L Normal 46-116 [facility] Comment on above: Performed By: #### P OCGLUC #### [facility] [address] [address] [address] Latia Rodriguez ALT [Catalytic activity/Vol] 107 U/L Critically high 16 -63 [facility] Comment on above: Performed By: #### P OCGLUC #### [facility] [address] [place] [address] Dr. Latia Rodriguez Anion gap [Moles/Vol] 10.9 mmol/L Normal [facility] Comment on above: Performed By: #### P OCGLUC #### [facility] [address] [place] [address] Dr. Latia Rodriguez AST [Catalytic activity/Vol] 82 U/L Critically high 15 -37 [facility] Comment on above: Performed By: #### P OCGLUC #### [facility] [address] [place] [address] Dr. Latia Rodriguez Bilirubin [Mass/Vol] 0.3 mg/dL Normal 0.2-1.0 [facility] Comment on above: Performed By: #### P OCGLUC #### [facility] [address] [place] [address] Dr. Latia Rodriguez Calcium [Mass/Vol] 8.6 mg/dL Normal 8.5-10.1 [facility] Comment on above: Performed By: #### P OCGLUC #### [facility] [address] [address] [address] Latia Rodriguez Chloride [Moles/Vol] 103 mmol/L Normal 98-107 [facility] Comment on above: Performed By: #### P OCGLUC #### [facility] [address] [place] [address] Dr. Latia Rodriguez CO2 [Moles/Vol] 25.7 mmol/L Normal 21.0-32.0 [facility] Comment on above: Performed By: #### P OCGLUC #### [facility] [address] [address] [address] Latia Rodriguez Creatinine [Mass/Vol] 1.07 mg/dL Normal 0.70-1.30 [facility] Comment on above: Performed By: #### P OCGLUC #### [facility] [address] [address] [address] Latia Rodriguez EGFR-AF VINCENTIAN >60 Normal >=60 [facility] Comment on above: Performed By: #### P OCGLUC #### [facility] [address] [address] [address] Latia Rodriguez EGFR-NON AF VINCENTIAN >60 Normal >=60 [facility] Comment on above: Performed By: #### P OCGLUC #### [facility] [address] [address] [address] Latia Rodriguez Globulin (S) [Mass/Vol] 3.8 g/dL Normal [facility] Comment on above: Performed By: #### P OCGLUC #### [facility] [address] [address] [address] Latia Rodriguez Glucose [Mass/Vol] 230 mg/dL Critically high 74-106 [facility] Comment on above: Performed By: #### P OCGLUC #### [facility] [address] [address] [address] Latia Rodriguez Potassium [Moles/Vol] 3.6 mmol/L Normal 3.5-5.1 [facility] Comment on above: Performed By: #### P OCGLUC #### [facility] [address] [address] [address] Latia Rodriguez Protein [Mass/Vol] 7.5 g/dL Normal 6.4-8.2 [facility] Comment on above: Performed By: #### P OCGLUC #### [facility] [address] [address] [address] Latia Rodriguez Sodium [Moles/Vol] 136 mmol/L Normal 136-145 [facility] Comment on above: Performed By: #### P OCGLUC #### [facility] [address] [address] [address] Latia Rodriguez Urea nitrogen [Mass/Vol] 16.0 mg/dL Normal 7.0-18.0 [facility] Comment on above: Performed By: #### P OCGLUC #### [facility] [address] [place] [address] Dr. Latia Rodriguez Urea nitrogen/Creatinine [Ma ss ratio] 15.0 mg/mg Normal [facility] Comment on above: Performed By: #### P OCGLUC #### [facility] [address] [place] [address] Dr. Latia Rodriguez TROPONIN, HIGH SENSITIVITYon 05-26-2022 HSTROP 12.0 pg/mL Normal 4.0-76.1 [facility] Comment on above: Result Comment: CUT- OFF POINTS HAVE BEEN ESTABLISHED BASED ON THE FOURTH UNIVERSAL DEFINITIONS OF MYOCARDIAL INFARCTION. THE UPPER REFERENCE LIMIT (URL) OF TROPONIN, DEFINED THE 99TH PERCENTILE OF cTnI DISTRIBUTION IN A REFERENCE POPULATION, HAS BEEN CONFIRMED THE DECISION THRESHOLD FOR [place] DIAGNOSIS. Performed By: #### P OCGLUC #### [facility] [address] [place] [address] Dr. Latia Rodriguez TSHon 05-26-2022 TSH 1.819 uIU/mL Normal 0.358-3.74 0 [facility] Comment on above: Performed By: #### T 3TOTAL #### [facility] [address] [place] [address] Dr. Latia Rodriguez UA RANDOM W/MICROSCOPICon BACTERIA NONE SEEN Normal NONE SEEN [facility] Comment on above: Performed By: #### L ACT #### [facility] [address] [place] [address] Dr. Latia Rodriguez Bilirubin Ql (U) Negative Normal NEGATIVE [facility] Comment on above: Performed By: #### L ACT #### [facility] [address] [place] [address] Dr. Latia Rodriguez CAST NONE SEEN Normal NONE SEEN [facility] Comment on above: Performed By: #### L ACT #### [facility] [address] [place] [address] Dr. Latia Rodriguez Clarity (U) CLEAR Normal CLEAR [facility] Comment on above: Performed By: #### L ACT #### [facility] [address] [place] [address] Dr. Latia Rodriguez Color (U) LT. YELLOW Normal YELLOW [facility] Comment on above: Performed By: #### L ACT #### [facility] [address] [place] [address] Dr. Latia Rodriguez Crystals LM Nom (Urine sed) NONE SEEN Normal NONE SEE N [facility] Comment on above: Performed By: #### L ACT #### [facility] [address] [place] [address] Dr. Latia Rodriguez Epithelial cells LM Ql (Urin e sed) RARE Normal NONE SEEN /RARE [facility] Comment on above: Performed By: #### L ACT #### [facility] [address] [place] [address] Dr. Latia Rodriguez Glucose Ql (U) Negative Normal NEGATIVE [facility] Comment on above: Performed By: #### L ACT #### [facility] [address] [place] [address] Dr. Latia Rodriguez Hemoglobin Ql (U) Negative Normal NEGATIVE [facility] Comment on above: Performed By: #### L ACT #### [facility] [address] [place] [address] Dr. Latia Rodriguez Ketones Ql (U) Negative Normal NEGATIVE [facility] Comment on above: Performed By: #### L ACT #### [facility] [address] [place] [address] Dr. Latia Rodriguez LEUKOCYTES Negative Normal NEGATIVE [facility] Comment on above: Performed By: #### L ACT #### [facility] [address] [place] [address] Dr. Latia Rodriguez MUCOUS NONE SEEN Normal NONE SEEN [facility] Comment on above: Performed By: #### L ACT #### [facility] [address] [place] [address] Dr. Latia Rodriguez Nitrite Ql (U) Negative Normal NEGATIVE [facility] Comment on above: Performed By: #### L ACT #### [facility] [address] [address] [address] Latia Rodriguez pH (U) 6.0 [pH] Normal 5-9 [facility] Comment on above: Performed By: #### L ACT #### [facility] [address] [address] [address] Latia Rodriguez RBC 0-2 Normal 0-2 [facility] Comment on above: Performed By: #### L ACT #### [facility] [address] [place] [address] Dr. Latia Rodriguez SPEC GRAVITY 1.020 Normal 1.005-<=1. 025 [facility] Comment on above: Performed By: #### L ACT #### [facility] [address] [place] [address] Dr. Latia Rodriguez UA PROTEIN Negative Normal NEGATIVE/ TRACE [facility] Comment on above: Performed By: #### L ACT #### [facility] [address] [place] [address] Dr. Latia Rodriguez Urobilinogen Qn (U) 0.2 {Chance'U}/dL Normal 0.2 - 1. 0 [facility] Comment on above: Performed By: #### L ACT #### [facility] [address] [place] [address] Dr. Latia Rodriguez WBC NONE SEEN Normal NONE SEEN [facility] Comment on above: Performed By: #### L ACT #### [facility] [address] [place], [place] [id number] Dr. Latia Rodriguez XR CHEST 1 Von [...] TOMASZ NIEVES Date: 2022-05-26 06:01 Normal [facility] CHEMISTRYOrdered By: SYSTEM SYSTEM on 05-14-2022 Albumin [...] rate/Area] mL/min/1.73 m2 Normal >=59mL/min /1.73 m2 [facility] Chem S GFR/1.73 sq M.predicted domonique g non-blacks MDRD (S/P/Bld) [Vol rate/Area] mL/min/1.73 m2 Normal >=59mL/min /1.73 m2 [facility] Chem S Globulin (S) [Mass/Vol] 3.0 g/dL Normal 1.4 - 4.0 gm/dL [facility] Remisol Glucose [Mass/Vol] 106 mg/dL Normal 55 - 199 mg/dL [facility] Remisol Potassium [Moles/Vol] 4.0 mmol/L Normal 3.5 [...] - 20 [facility] Remisol CHEMISTRYOrdered By: Giulia Stovallffey on 05-14-2022 HbA1c (Bld) [Mass fraction] 6.5 % High <=5.9% [facility] ChemAutoSS HEMATOLOGYOrdered By: SYSTEM SYSTEM on 05-14-2022 [...] % Normal 36 .0 - 75.0 % [facility] HemeAutoSS Neutrophils/Leukocytes Auto (Bld) [Pure # fraction] 5.9 E9/L Normal 2.0 - 7.5 E9/L [facility] HemeAutoSS HEMATOLOGYOrdered By: Donna Bourgeois on 05-14-2022 Erythrocyte distribution wid th (RBC) [Ratio] 13.5 % Normal 10.9 - 14.2 % [facility] HemeAutoSS Hematocrit (Bld) [Volume fraction] 44.4 % Normal 37.7 - 49.0 % [facility] Hemoglobin (Bld) [Mass/Vol] 15.1 g/dL Normal 13.5 - 17.5 gm/dL [facility] MCH (RBC) [Entitic mass] 29.4 pg Normal 27. 0 - 34.0 pg [facility] MCHC (RBC) [Mass/Vol] 34.0 g/dL Normal 31.4 - 36.0 gm/dL [facility] MCV (RBC) [Entitic vol] 86.7 fL Normal 80.0 - 100.0 fL [facility] Platelet mean volume (Bld) [Entitic vol] 7.4 fL Normal 6.4 - 10.8 fL [facility] HemeAutoSS Platelets (Bld) [#/Vol] 497.0 E9/L Normal 150. 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 No Radiologist dictation. Please follow up with ordering provider. Final result Normal [facility] OPERATIVE REPORTon 7 OPERATIVE REPORT [facility] NAME: REGIS HORTA : 72MED REC NO: [id number] ROOM:ACCOUNT NO: [id number] ADMISSION DATE: 03/27/17PHYSICIAN: JOSH ÁLVAREZPREOPERATIVE DIAGNOSIS: Right [...] a hole in the zygoma and a Zhong-Terence screw wasinserted into the zygoma which immediately [...] lactated Ringer's intravenoussolution .JOSH ÁLVAREZD:03/25/2017 7:24:51 NATHANAEL/Archie_ZEINABHAR_IJob#: [id number] Doc#: [id number] Normal [facility] CBC with Diffon 03-13-2017 Abs. Basophil 0.00 k/uL Normal 0.0-0.2 [facility] Comment on above: Performed By: #### C DP ####[address] [place] [address] Abs. [place] 0.31 k/uL High 0 [facility] Comment on above: Performed By: #### C DP ####[address] [place] [address] Abs.Neutrophil (Seg) 12.39 k/uL High 1.8-7.7 [facility] Comment on above: Performed By: #### C DP ####[address] [address] Basophils/100 WBC Auto (Bld) 0 % Normal [facility] Comment on above: Performed By: #### C DP ####[address] [address] Blood morphology Normal Normal [facility] Comment on above: Result Comment: [id number] [place] [address] Performed By: #### C DP ####[address] [address] Eosinophils 0.00 10*3/uL Normal 0.0-0.4 [facility] Comment on above: Performed By: #### C DP ####[address] [address] Eosinophils/100 leukocytes 0 % Normal [facility] Comment on above: Performed By: #### C DP ####[address] [address] Lymphocytes 2.02 10*3/uL Normal 1.0-4.8 [facility] Comment on above: Performed By: #### C DP ####[address] [address] Lymphocytes/100 leukocytes 13 % Normal [facility] Comment on above: Performed By: #### C DP ####[address] [address] Metamyelocytes/100 leukocytes 2 % Normal [facility] Comment on above: Performed By: #### C DP ####[address] [place] [address] Monocytes 0.78 10*3/uL Normal 0.1-0.8 [facility] Comment on above: Performed By: #### C DP ####[address] [address] Monocytes/100 leukocytes 5 % Normal [facility] Comment on above: Performed By: #### C DP ####[address] [address] Neutrophil (Seg) 80 % Normal [facility] Comment on above: Performed By: #### C DP ####[address] [address] Erythrocyte distribution wid th Auto Ratio (RBC) 13.3 % Normal 12.5-15.4 [facility] Comment on above: Performed By: #### C DP ####[address] [address] Erythrocytes (RBC) 4.12 10*6/uL Low 4.5-5.9 [facility] Comment on above: Performed By: #### C DP ####[address] [address] Hematocrit (HCT) 37.1 % Low 41-[address] [facility] Comment on above: Performed By: #### C DP ####[address] [address] Hemoglobin mass conc (Bld) 12.4 g/dL Low 13.5-17.5 [facility] Comment on above: Performed By: #### C DP ####[facility] [place] [address] MCH 30.1 pg Normal 26-34 [facility] Comment on above: Performed By: #### C DP ####[address] [place] [address] MCHC mass conc (RBC) 33.4 g/dL Normal 31-37 [facility] Comment on above: Performed By: #### C DP ####[address] [address] MCV 90.0 fL Normal 80-100 [facility] Comment on above: Performed By: #### C DP ####[address] [address] Platelet mean volume (PMV) 6.8 fL Normal 6.0-12.0 [facility] Comment on above: Performed By: #### C DP ####[address] [address] Platelets 1143 10*3/uL Critically high 140-450 [facility] Comment on above: Result Comment: Prev ious Alert Value Reported Performed By: #### C DP ####[address] [address] WBC (Leukocytes) 15.5 10*3/uL High 3.5-11.0 [facility] Comment on above: Performed By: #### C DP ####[address] [place] [address] Auto Diff Performed NOT REPORTED Normal [facility] Comment on above: Performed By: #### C DP ####[address] [address] Erythrocyte morphology NOT REPORTED Normal [facility] Comment on above: Performed By: #### C DP ####[address] [address] Platelets NOT REPORTED Normal [facility] Comment on above: Performed By: #### C DP ####[address] [address] WBC Morphology NOT REPORTED Normal 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 Comment on above: Result Comment: [facility] [address] [place] [id number] Performed By: #### H H, PLT ####[address] [address] Hemoglobin mass conc (Bld) 12.7 g/dL Low 13.5-17.5 [facility] Comment on above: Performed By: #### H H, PLT ####[address] [address] Platelet Counton 03-13-2017 Platelets 1182 10*3/uL Critically high 140-450 [facility] Comment on above: Result Comment: [facility] [address] [place] [id number] Performed By: #### H H, PLT ####[address] [address] Vital Signs Date Time Vital Sign Value Performing Clinician Mery perez 01-13-2025 14:43-0400 Body height 154.9 cm Arthur Chappell MD Work Phone: [facility] 01-13-2025 14:43-0400 Body mass index (BMI) [Ratio] 29.48 kg/m2 Arthur Chappell MD Work Phone: [facility] 01-13-2025 14:43-0400 Body weight 70.76 kg Arthur Chappell MD Work Phone: [facility] 01-13-2025 14:43-0400 Diastolic blood pressure 88 mm[Hg] Arthur Chappell MD Work Phone: [facility] 01-13-2025 14:43-0400 Heart rate 102 /min Arthur Chappell MD Work Phone: [facility] 01-13-2025 14:43-0400 Systolic blood pressure 144 mm[Hg] Arthur Chappell MD Work Phone: [facility] 10-20-2024 11:30-0500 Body height 157.5 cm Anthony Juan MD Work Phone: [facility] 10-20-2024 11:30-0500 Body mass index (BMI) [Ratio] 30 kg/m2 Anthony Juan MD Work Phone: [facility] 10-20-2024 11:30-0500 Body weight 74.39 kg Anthony Juan MD Work Phone: [facility] 10-20-2024 11:30-0500 Diastolic blood pressure 70 mm[Hg] Anthony Juan MD Work Phone: [facility] 10-20-2024 11:30-0500 Heart rate 88 /min Anthony Juan MD Work Phone: [facility] 10-20-2024 11:30-0500 SaO2% (BldA) [Mass fraction] 94 % Anthony Juan MD Work Phone: [facility] 10-20-2024 11:30-0500 Systolic blood pressure 118 mm[Hg] Anthony Juan MD Work Phone: [facility] 09-24-2024 12:55-0500 Body weight 74.39 kg Wendy Zhong KNOCKUP WORKER Work Phone: [facility] 09-24-2024 12:55-0500 Diastolic blood pressure 72 mm[Hg] Wendy Zhong [employer]NOCKUP WORKER Work Phone: [facility] 09-24-2024 12:55-0500 Heart rate 88 /min Wendy Zhong [employer]NOCKUP WORKER Work Phone: [facility] 09-24-2024 12:55-0500 SaO2% (BldA) [Mass fraction] 96 % Wendy Zhong [employer]NOCKUP WORKER Work Phone: [facility] 09-24-2024 12:55-0500 Systolic blood pressure 118 mm[Hg] Wendy Zhong [employer]NOCKUP WORKER Work Phone: [facility] 09-23-2024 13:40-0500 Blood Pressure Location Edward NILL [facility] 09-23-2024 13:40-0500 Diastolic blood pressure 76 mm[Hg] Edward NILL [facility] 09-23-2024 13:40-0500 Heart rate 72 /min Edward NILL [facility] [place] 09-23-2024 13:40-0500 Respiratory rate 16 /min Edward NILL [facility] [place] 09-23-2024 13:40-0500 Systolic blood pressure 111 mm[Hg] Edward NILL [facility] 09-02-2024 10:20-0500 Blood Pressure Location Varsha Lue [facility] 09-02-2024 10:20-0500 Body temperature 98.6 [degF] Varsha Lue [facility] 09-02-2024 10:20-0500 Diastolic blood pressure 79 mm[Hg] Varsha Lue [facility] 09-02-2024 10:20-0500 Heart rate 74 /min Varsha Lue [facility] 09-02-2024 10:20-0500 Respiratory rate 18 /min Varsha Lue [facility] 09-02-2024 10:20-0500 Systolic blood pressure 140 mm[Hg] Varsha Lue [facility] 08-26-2024 09:31-0500 Body height 157.5 cm Arthur Chappell MD Work Phone: [facility] 08-26-2024 09:31-0500 Body mass index (BMI) [Ratio] 29.95 kg/m2 Arthur Chappell MD Work Phone: [facility] 08-26-2024 09:31-0500 Body weight 74.3 kg Arthur Chappell MD Work Phone: [facility] 08-26-2024 09:31-0500 Diastolic blood pressure 76 mm[Hg] Arthur Chappell MD Work Phone: [facility] 08-26-2024 09:31-0500 Heart rate 71 /min Arthur Chappell MD Work Phone: [facility] 08-26-2024 09:31-0500 SaO2% (BldA) [Mass fraction] 96 % Arthur Chappell MD Work Phone: [facility] [employer] [facility] 08-26-2024 09:31-0500 Systolic blood pressure 130 mm[Hg] Arthur Chappell MD Work Phone: [facility] 07-20-2024 12:28-0500 Body weight 72.12 kg Regis Guerrero DO Work Phone: [facility] 07-20-2024 12:28-0500 Diastolic blood pressure 72 mm[Hg] Chongopher Yolanda DO Work Phone: [facility] 07-20-2024 12:28-0500 Heart rate 73 /min Christopher Yolanda DO Work Phone: [facility] 07-20-2024 12:28-0500 SaO2% (BldA) [Mass fraction] 94 % Christopher Yolanda DO Work Phone: [facility] 07-20-2024 12:28-0500 Systolic blood pressure 113 mm[Hg] Chongopher Yolanda DO Work Phone: [facility] 04-23-2024 11:43-0400 Body height 157.5 cm Mischell Dolly AERONAUTICAL DRAFTER-DUAL RATE DEALER Work Phone: [facility] 04-23-2024 11:43-0400 Body mass index (BMI) [Ratio] 27.79 kg/m2 Mischell Dolly AERONAUTICAL DRAFTER-DUAL RATE DEALER Work Phone: [facility] 04-23-2024 11:43-0400 Body weight 68.95 kg Mischell Dolly AERONAUTICAL DRAFTER-DUAL RATE DEALER Work Phone: [facility] 04-23-2024 11:43-0400 Diastolic blood pressure 70 mm[Hg] Mischell Dolly AERONAUTICAL DRAFTER-DUAL RATE DEALER Work Phone: [facility] 04-23-2024 11:43-0400 Heart rate 84 /min Mischell Dolly AERONAUTICAL DRAFTER-DUAL RATE DEALER Work Phone: [facility] 04-23-2024 11:43-0400 SaO2% (BldA) [Mass fraction] 99 % Mischell Dolly AERONAUTICAL DRAFTER-DUAL RATE DEALER Work Phone: [facility] 04-23-2024 11:43-0400 Systolic blood pressure 138 mm[Hg] Mischell Dolly AERONAUTICAL DRAFTER-DUAL RATE DEALER Work Phone: [facility] 11-08-2023 10:16-0500 Body height 157.5 cm Christy Ko MD [facility] 11-08-2023 10:16-0500 Body mass index (BMI) [Ratio] 28.17 kg/m2 Christy Ko MD Work Phone: [facility] [employer] 11-08-2023 10:16-0500 Body weight 69.85 kg Christy Ko MD Work Phone: [facility] [employer] 11-08-2023 10:16-0500 Diastolic blood pressure 88 mm[Hg] Christy Ko MD Work Phone: [facility] [employer] 11-08-2023 10:16-0500 Heart rate 97 /min Christy Ko MD Work Phone: [facility] [employer] 11-08-2023 10:16-0500 SaO2% (BldA) [Mass fraction] 95 % Christy Ko MD Work Phone: [facility] [employer] 11-08-2023 10:16-0500 Systolic blood pressure 136 mm[Hg] Christy Ko MD Work Phone: [facility] [employer] 10-22-2023 11:22-0500 Body temperature 97.81 [degF] Arie Foley MD Work Phone: [facility] [employer] [facility] 10-22-2023 11:22-0500 Diastolic blood pressure 70 mm[Hg] Arie Foley MD Work Phone: [facility] [employer] [facility] 10-22-2023 11:22-0500 Heart rate 83 /min Arie Foley MD Work Phone: [facility] [employer] 10-22-2023 11:22-0500 Respiratory rate 16 /min Arie Foley MD Work Phone: [facility] [employer] [facility] 10-22-2023 11:22-0500 SaO2% (BldA) [Mass fraction] 97 % Arie Foley MD Work Phone: [facility] [employer] [facility] 10-22-2023 11:22-0500 Systolic blood pressure 98 mm[Hg] Arie Foley MD Work Phone: [facility] 10-22-2023 07:45-0500 Body height 157.5 cm Arie Foley MD Work Phone[facility] 10-22-2023 07:45-0500 Body mass index (BMI) [Ratio] 27.25 kg/m2 Arie Foley MD Work Phone[facility] 10-22-2023 07:45-0500 Body weight 67.59 kg Arie Foley MD Work Phone: [facility] 2023 10:59-0400 Diastolic blood pressure 100 mm[Hg] [employer] [facility] 2023 10:59-0400 Mean blood pressure 113 mm[Hg] Kathy [employer] [facility] 2023 10:59-0400 Systolic blood pressure 138 mm[Hg] Kathy [employer] [facility] 2023 10:50-0400 Blood Pressure Location Kathy [employer] [facility] 2023 10:50-0400 Body temperature 98.24 [degF] Kathy [employer] [facility] 2023 10:50-0400 Diastolic blood pressure 90 mm[Hg] Kathy BROWN [facility] 2023 10:50-0400 Heart rate 95 /min Kathy [employer] [facility] 2023 10:50-0400 Respiratory rate 16 /min Kathy [employer] [facility] 2023 10:50-0400 SaO2% (BldA) [Mass fraction] 98 % Kathy [employer] [facility] 2023 10:50-0400 Systolic blood pressure 142 mm[Hg] Kathy [employer] [facility] 12-11-2022 11:10-0400 Blood Pressure Location Christy RadMit [facility] 12-11-2022 11:10-0400 Diastolic blood pressure 80 mm[Hg] Christy RICE [facility] 12-11-2022 11:10-0400 Heart rate 93 /min Christy RICE [facility] 12-11-2022 11:10-0400 Respiratory rate 16 /min Christy RICE [facility] 12-11-2022 11:10-0400 Systolic blood pressure 122 mm[Hg] Christy RICE [facility] 12-03-2022 17:46-0400 Blood Pressure Location Kathy [employer] [facility] 12-03-2022 17:46-0400 Body temperature 97.16 [degF] Kathy [employer] [facility] 12-03-2022 17:46-0400 Diastolic blood pressure 70 mm[Hg] Kathy [employer] [facility] 12-03-2022 17:46-0400 Heart rate 104 /min Kathy [employer] [facility] 12-03-2022 17:46-0400 Respiratory rate 16 /min Kathy NOEL [facility] 12-03-2022 17:46-0400 SaO2% (BldA) [Mass fraction] 98 % Kathy NOEL [facility] 12-03-2022 17:46-0400 Systolic blood pressure 98 mm[Hg] Kathy NOEL [facility] 11-21-2022 13:28-0500 Diastolic blood pressure 110 mm[Hg] Ernesto Lorenzerson [facility] 11-21-2022 13:28-0500 Heart rate 80 /min Ernesto Christofferson [facility] 11-21-2022 13:28-0500 Systolic blood pressure 177 mm[Hg] Ernesto Christofferson [facility] 11-21-2022 10:56-0500 Diastolic blood pressure 123 mm[Hg] Ernesto Christofferson [facility] 11-21-2022 10:56-0500 Heart rate 80 /min Ernesto Christofferson [facility] 11-21-2022 10:56-0500 Systolic blood pressure 179 mm[Hg] Ernesto Christofferson [facility] 11-21-2022 06:52-0500 Blood Pressure Location Ernesto Christofferson [facility] 11-21-2022 06:52-0500 Body temperature 97.88 [degF] Ernesto Christofferson [facility] 11-21-2022 06:52-0500 Diastolic blood pressure 101 mm[Hg] Ernesto Christofferson [facility] 03-08-2023 06:52-0500 Heart rate 88 /min Ernesto Christofferson [facility] 11-21-2022 06:52-0500 Respiratory rate 16 /min Ernesto Christofferson [facility] 11-21-2022 06:52-0500 SaO2% (BldA) [Mass fraction] 97 % Ernesto Christofferson [facility] 11-21-2022 06:52-0500 Systolic blood pressure 139 mm[Hg] Ernesto Christofferson [facility] 10-02-2022 13:55-0500 Blood Pressure Location Edward NILL [facility] 10-02-2022 13:55-0500 Diastolic blood pressure 88 mm[Hg] Edward NILL [facility] 10-02-2022 13:55-0500 Heart rate 72 /min Edward NILL [facility] 10-02-2022 13:55-0500 Respiratory rate 16 /min Edward NILL [facility] 10-02-2022 13:55-0500 Systolic blood pressure 120 mm[Hg] Edward NILL [facility] 08-07-2022 13:17-0500 Blood Pressure Location Ernesto Christofferson [facility] 08-07-2022 13:17-0500 Diastolic blood pressure 67 mm[Hg] Ernesto Christofferson [facility] 08-07-2022 13:17-0500 Heart rate 96 /min Ernesto Christofferson [facility] 08-07-2022 13:17-0500 Respiratory rate 18 /min Ernesto Christofferson [facility] 08-07-2022 13:17-0500 SaO2% (BldA) [Mass fraction] 98 % Ernesto Robin [facility] 08-07-2022 13:17-0500 Systolic blood pressure 120 mm[Hg] Ernesto Robin [facility] 06-13-2022 14:17-0400 Blood Pressure Location Edward ANNL [facility] [place] 06-13-2022 14:17-0400 Diastolic blood pressure 70 mm[Hg] Edward NILL [facility] [place] 06-13-2022 14:17-0400 Heart rate 92 /min Edward NILL [facility] 06-13-2022 14:17-0400 Respiratory rate 16 /min Edward NILL [facility] 06-13-2022 14:17-0400 Systolic blood pressure 108 mm[Hg] Edward NILL [facility] 05-14-2022 11:25-0400 Blood Pressure Location [employer] [facility] 05-14-2022 11:25-0400 Body temperature 97.34 [degF] Kathyiloho [facility] 05-14-2022 11:25-0400 Diastolic blood pressure 80 mm[Hg] Kathy [employer] [facility] 05-14-2022 11:25-0400 Heart rate 104 /min [employer] [facility] 05-14-2022 11:25-0400 Respiratory rate 16 /min [employer] [facility] 05-14-2022 11:25-0400 Systolic blood pressure 120 mm[Hg] Kathy [employer] [facility] [place] Encounters Encounter Date Encounter Type Care Provider Facility Start: 09-27-2025 ambulatory SERINA ROTH Facili ty:[facility] [place] Start: 08-18-2025 ambulatory Varsha M. Lue Facility: [facility] [place] Start: 08-11-2025 ambulatory Varsha M. Lue Facility:[facility] [place] Start: 06-15-2025 ambulatory Varsha M. Lue Facility:[facility] [place] Start: 05-18-2025 End: 05-18-2025 ambulatory Varsha M. Lue Facility:[facility] [place] Start: 05-18-2025 End: 05-18-2025 Patient encounter procedure Varsha M. Lue [facility] Start: 05-05-2025 End: 05-05-2025 ambulatory Varsha M. Lue Facility:[facility] [place] Start: 05-05-2025 End: 05-05-2025 Patient encounter procedure Varsha M. Lue [facility] Start: 03-30-2025 End: 04-01-2025 Refill Jude Alberto APRN-DUAL RATE DEALER Work Phone: [facility] Comment on above: Med Refill Start: 03-25-2025 End: 03-25-2025 ambulatory SERINA ROTH Facility:[facility] Start: 02-23-2025 End: 02-23-2025 ambulatory Maxime Hull Facility:[facility] [place] Start: 02-10-2025 End: 02-10-2025 ambulatory Varsha M. Lue Facility: [place] Start: 02-10-2025 End: 02-10-2025 Patient encounter procedure Varsha M. Lue [facility] Start: 01-25-2025 End: 01-25-2025 ambulatory Varsha M. Lue Facility:[facility] Start: 01-25-2025 End: 01-25-2025 Patient encounter procedure Varsha Peralta [facility] Start: 01-13-2025 End: 01-13-2025 Office outpatient visit 25 minutes Arthur Chappell MD Work Phone: [facility] Comment on above: Paroxysmal atrial fi brillation ([facility]-HCC) (Primary Dx) Start: 01-12-2025 End: 01-12-2025 Telephone encounter Anabel Muro CMA [facility] Start: 01-06-2025 End: 01-06-2025 ambulatory Varsha Peralta Facility:[facility] Start: 01-06-2025 End: 01-06-2025 Lab Drop off Varsha Peralta [facility] Start: 01-06-2025 End: 01-06-2025 ambulatory Varsha CliftonSenthil Ayersrancho Facility:[facility] Start: 11-23-2024 End: 11-23-2024 ambulatory Maxime [place] [facility] Start: 11-11-2024 End: 11-11-2024 ambulatory [facility] Start: 11-02-2024 End: 11-02-2024 ambulatory [facility] Start: 10-22-2024 End: 10-22-2024 ambulatory Maxime Hull Facility:[facility] [place] Start: 10-20-2024 End: 10-20-2024 Office outpatient visit 25 minutes Radha Drummond MD Work Phone: [facility] Comment on above: Preop cardiovascular exam (Primary Dx); Coronary artery disease involving galena coronary artery of galena heart without angina pectoris; Paroxysmal atrial fibrillation (CMS-HCC); Pulmonary emphysema, unspecified emphysema type ([facility]-HCC); Hyperlipemia, mixed Start: 10-20-2024 End: 10-20-2024 Patient encounter status Radha Drummond MD [facility] Start: 10-19-2024 End: 10-19-2024 Telephone encounter Anabel Muro CMA [facility] Start: 10-19-2024 End: 10-19-2024 ambulatory Maxime Hull Facility:[facility] [place] Start: 10-09-2024 End: 10-13-2024 Telephone encounter Andrea Machado RN [facility] Comment on above: Preop Clearance Start: 10-07-2024 End: 10-07-2024 ambulatory TYLERDIRK PARK [facility] Start: 09-24-2024 End: 09-24-2024 Bamboo flowsheet Wendy Zhong KNOCKUP WORKER Work Phone: [facility] Start: 09-24-2024 End: 09-24-2024 Bamboo flowsheet Wendy Trevin KNOCKUP WORKER Work Phone: [facility] Start: 09-24-2024 End: 09-24-2024 Office outpatient visit 25 minutes Wendy Zhong [employer]NOCKUP WORKER Work Phone: [facility] Comment on above: Memory impairment (P rimary Dx); PTSD (post-traumatic stress disorder) (CMS/HCC); Anxiety and depression (CMS/HCC); Anisocoria; Complex regional pain syndrome type 1, affecting unspecified site Start: 09-24-2024 End: 09-24-2024 ambulatory WENDY TREVIN Not Available Start: 09-23-2024 End: 09-23-2024 ambulatory Edward URBAN Facility: [facility] Start: 09-23-2024 End: 09-23-2024 Patient encounter procedure Edward URBAN [facility] [place] Start: 09-02-2024 End: 09-02-2024 ambulatory Maxime Hull Facility: [place] Start: 09-02-2024 End: 09-02-2024 Patient encounter procedure Varsha Peralta [facility] [place] Start: 08-26-2024 End: 08-26-2024 Telephone encounter Marily Brown LPN [facility] Comment on above: EP Surgery ( PVI/Typ ical) Ep Surgery ( PT Educ ation) Start: 08-26-2024 End: 08-26-2024 Office outpatient new 60 minutes Jude Alberto AERONAUTICAL DRAFTER-DUAL RATE DEALER Work Phone: [facility] Comment on above: Paroxysmal atrial fi brillation (CMS-HCC) Start: 08-25-2024 End: 08-25-2024 Telephone encounter Anabel Muro CMA [facility] Start: 07-20-2024 End: 07-20-2024 Bamboo flowsheet Regis Guerrero DO Work Phone: [employer] [facility] Start: 07-20-2024 End: 07-20-2024 Bamboo flowsheet Regis Guerrero DO Work Phone: [employer] [facility] Start: 07-20-2024 End: 07-20-2024 ambulatory Maxime Hull Facility:[facility] Start: 07-20-2024 End: 07-20-2024 Lab Drop off Maxime Hull [facility] Start: 07-20-2024 End: 07-20-2024 Office outpatient visit 25 minutes Regis Guerrero DO Work Phone: [employer] [facility] Comment on above: Memory impairment (P rimary Dx); Complex regional pain syndrome type 1, affecting unspecified site; History of traumatic brain injury Start: 07-20-2024 End: 07-20-2024 ambulatory REGIS GUERRERO Not Available Start: 05-14-2024 End: 05-19-2024 Refill Linda Thomas LPN [facility] Comment on above: Med Refill Start: 04-23-2024 End: 04-23-2024 Telephone encounter Nadja Boo [facility] Start: 04-23-2024 End: 04-23-2024 Office outpatient visit 25 minutes Jude Alberto AERONAUTICAL DRAFTER-DUAL RATE DEALER Work Phone: [facility] Comment on above: Coronary artery dise ase involving galena coronary artery of galena heart without angina pectoris (Primary Dx); Paroxysmal atrial fibrillation (CMS-HCC); Hyperlipemia, mixed Start: 04-02-2024 End: 04-07-2024 Evaluation and management of inpatient GERARDO ROLLINS [facility] Start: 04-01-2024 End: 04-01-2024 Telephone encounter Andrea Machado RN [facility] Comment on above: Cardiac Medication R efills Start: 02-13-2024 End: 02-13-2024 ambulatory Maxime Hull Facility:[facility] [place] Start: 01-14-2024 End: 01-14-2024 ambulatory Maxime Hull Facility:[facility] [place] Start: 01-10-2024 ambulatory Varsha Peralta Facility:[facility] [place] Start: 11-08-2023 End: 11-08-2023 Office outpatient visit 25 minutes Christy Ko MD Work Phone: [facility] Comment on above: Paroxysmal atrial fi brillation (CMS-HCC) (Primary Dx); Coronary artery disease involving galena coronary artery of galena heart without angina pectoris Start: 11-07-2023 Telephone encounter Anaebl Muro CMA [facility] Start: 11-02-2023 Chart abstracting Christy goodman MD Work Phone: [facility] Start: 10-30-2023 End: 10-30-2023 ambulatory Varsha Peralta Facility: [place] Start: 10-30-2023 End: 10-30-2023 Patient encounter procedure Varsha Peralta [facility] [place] Start: 10-20-2023 End: 10-22-2023 Emergency department patient visit Ernesto Leon MD Work Phone: [facility] Comment on above: Atrial fibrillation with rapid ventricular response (CMS-HCC) (Primary Dx); Paroxysmal atrial fibrillation (CMS-HCC) Start: 2023 End: 2023 Patient encounter procedure Kathy NOEL [facility] [place] Start: 12-11-2022 End: 12-11-2022 Patient encounter procedure Christy Neumann LUCIO [facility] [place] Start: 12-05-2022 End: 12-15-2022 Pre-admission assessment Lizy DUVAL [facility] Start: 12-03-2022 End: 12-03-2022 Patient encounter procedure Kathy NOEL [facility] [place] Start: 11-21-2022 End: 11-21-2022 Admission to same day surgery center Ernesto Kelly [facility] Start: 11-19-2022 End: 11-20-[address] DOCTOR SIGALA Facility:[facility] Start: 10-24-2022 End: 10-24-[address] EDWARD URBAN . Facility:[facility] Start: 10-20-[address] EDWARD URBAN . Facil ity:[facility] Start: 10-02-2022 End: 10-02-2022 Patient encounter procedure Edward URBAN General Surgery Wilmar/[facility]orge [facility] Start: 08-07-2022 End: 08-07-2022 Patient encounter procedure Ernesto Kelly [facility] Start: 07-12-2022 End: 07-14-2022 Evaluation and management of inpatient DR DOCTOR SIGALA Facility:[facility] Start: 07-11-2022 End: 07-12-2022 ambulatory CAMACHO ANA Facility:[facility] Start: 06-13-2022 End: 06-13-2022 Patient encounter procedure Edward Yoon URBAN General Surgery Nill/Jorge [facility] Start: 06-07-[address] MELVIN PEREZ . Facili ty:[facility]1 Start: 05-26-2022 End: 05-27-[address] DOCTOR SIGALA Facility:[facility] Start: 05-14-2022 End: 05-14-2022 Lab Drop off Kathy NOEL [facility] Start: 05-14-2022 End: 05-14-2022 Patient encounter procedure Kathy NOEL [facility] [place] Start: 04-19-[address] KATHY NOEL Facili ty:[facility]1 Procedures Date Procedure Procedure Detail Performing Clinician Start: 05-05-2025 Cystoscopy Varsha Peralta Start: 01-13-2025 Ecg routine ecg w/le ast [...] 10-22-2023 Comprehensive metabo lic panel Aleida Almaraz AERONAUTICAL DRAFTER-[employer] DEALER Work Phone: Start: 10-21-2023 Echo tthrc r-t [...] dental extractions Manny NOEL Asthma (disorder) Varsha Fabian Atrial fibrillation (disorder) Varsha Peralta Cardiac ablation for atrial fibrillation Varsha Peralta Cardiac catheter (ph ysical object) Kathy NOEL Cardiac catheterization [facility] Comment on above: March 2024 no stents November 2022 Chronic obstructive lung disease (disorder) Varshanii Peralta epi-dural blocks Kathy NOEL Hyperlipidemia (disorder) Ka thy Fabian Hypertensive disorde r, systemic arterial (disorder) Varsha [...] Adult BMI Screening Adult BMI Screen ing [facility] Start: 01-13-2026 Tobacco Screening Tobacco Screening [facility] Start: 11-25-2025 Adult BMI Screening Adult BMI Screen ing [facility] Start: 11-25-2025 Tobacco Screening Tobacco Screening [facility] Start: 08-26-2025 Adult BMI Screening Adult BMI Screen ing [facility] Start: 08-26-2025 Tobacco Screening Tobacco Screening [facility] Start: 07-14-2025 End: 07-14-2025 Patient encounter procedure 07/14/2025 2:30 PM EDT Office Visit [facility] [address] [place] [address] Arthur Chappell MD [address] [place] [address] [facility] Start: 05-17-2025 Influenza vaccination Influenza Vacc ine [facility] Start: 04-23-2025 Adult BMI Screening Adult BMI Screen ing [facility] Start: 04-23-2025 Tobacco Screening Tobacco Screening [facility] Start: 01-13-2025 End: 01-13-2025 Patient encounter procedure 01/13/2025 2:45 PM EDT Office Visit [facility] [address] [place] [phone] Arthur Chappell MD [address] [place] [address] [facility] Start: 01-13-2025 End: 01-13-2026 Echo complete W/O contrast Echo complete W/O contrast Echocardiography Routine Paroxysmal atrial fibrillation ([facility]) Expected: 01/13/2025, Expires: 01/13/2026 [facility] Work Phone: Comment on above: Expected: 01/13/2025 , Expires: 01/13/2026 Start: 01-11-2025 Adult BMI Screening Adult BMI Screen ing [facility] Start: 01-11-2025 Tobacco Screening Tobacco Screening [facility] Start: 11-30-2024 Depression Screening Depression Scre ening [facility] Start: 11-25-2024 End: 11-25-2024 Admission to same day surgery center [facility] Comment on above: Afib/Typical Ablatio n - CARTO, ICE [92160 (CPT )] Afib Ablation - CART O, ICE [94223 (CPT )] Start: 11-25-2024 Subsequent hospital visit by physician 11/25/2024 10:30 AM EDT Hospital Encounter [facility] [address] [place] [address] Arthur Chappell MD [address] [place] [address] Paroxysmal atrial fibrillation ([facility]) [facility] [employer] Comment on above: Paroxysmal atrial fi brillation ([facility]) Start: 11-18-2024 End: 08-26-2025 Basic metabolic 2000 panel - Serum or Plasma Basic Metabolic Panel Lab Routine Paroxysmal atrial fibrillation ([facility]) Expected: 11/18/2024, Expires: 08/26/2025 [facility] Work Phone: Comment on above: Expected: 11/18/2024 , Expires: 08/26/2025 Start: 11-18-2024 End: 08-26-2025 CBC W Auto Differential panel - Blood CBC auto differential Lab Routine Paroxysmal atrial fibrillation ([facility]) Expected: 11/18/2024, Expires: 08/26/2025 [facility] Comment on above: Expected: 11/18/2024 , Expires: 08/26/2025 Start: 11-18-2024 End: 08-26-2025 Magnesium [Mass/volume] in Serum or Plasma Magnesium Lab Routine [facility] Expected: 11/18/2024, Expires: 08/26/2025 [facility] Comment on above: Expected: 11/18/2024 , Expires: 08/26/2025 Start: 11-12-2024 End: 11-12-2024 Patient encounter procedure 11/12/2024 1:40 PM EST Office Visit MARLENE JUÁREZ [address] [place] [phone] Wendy Zhong NP [address] [place] [phone] [facility] Start: 11-08-2024 Adult BMI Screening Adult BMI Screen ing [facility] Start: 11-08-2024 Tobacco Screening Tobacco Screening [facility] Start: 10-27-2024 Adult BMI Screening Adult BMI Screen ing [facility] Start: 10-27-2024 Tobacco Screening Tobacco Screening [facility] Start: 10-25-2024 End: 10-25-2025 MR Brain WO and W contrast IV MR brain w and wo contrast routine Imaging Routine Memory impairment Anisocoria Expected: 10/25/2024 (Approximate), Expires: 10/25/2025 [facility] Work Phone: Comment on above: Expected: 10/25/2024 (Approximate), Expires: 10/25/2025 Start: 10-20-2024 End: 10-20-2024 Patient encounter procedure 10/20/2024 11:00 AM EST Office Visit [facility] [address] [place] [phone] Radha Drummond MD [address] [place] [address] [facility] Start: 09-24-2024 End: 09-24-2024 [facility] Comment on above: Arrived Start: 08-26-2024 End: 08-26-2024 Patient encounter procedure 08/26/2024 10:00 AM EST Office Visit [facility] [address] [place] [phone] Jude Alberto, AERONAUTICAL DRAFTERDUAL RATE DEALER [address] [place] [address] Arthur Chappell MD [address] [place] [address] [facility] Start: 07-20-2024 End: 07-20-2024 Patient encounter procedure 07/20/2024 12:30 PM EST Office Visit RAE JUÁREZ [facility] [address] [place] [address] Regis Guerrero DO [address] [place] [address] [facility] Comment on above: Arrived Start: 05-17-2024 Influenza vaccination Influenza Vacc ine [facility] Start: 04-23-2024 End: 04-23-2025 Event Monitor (In Office) [facility] Work Phone: Comment on above: Expected: 04/23/2024 , Expires: 04/23/2025 Start: 04-14-2024 End: 04-14-2024 Patient encounter procedure 04/14/2024 11:15 AM EDT Office Visit [facility] [address] [place] [phone] Haroldo Oshea MD [address] [place] [address] [facility] Start: 11-08-2023 End: 11-08-2023 Patient encounter procedure 11/08/2023 10:15 AM EST Office Visit [facility] [address] [place] [address] Christy Ko MD [address] [place] [place] [address] [facility] Start: 05-17-2023 Influenza vaccination Influenza Vacc ine [facility] Start: 2021 Administration of varicella zoster vaccine Zoster (Shingles) Vaccine (1 of 2) [facility] Start: 1990 DTaP,Tdap and Td Vaccines (1 - Tdap) DTaP,Tdap and Td Vaccines (1 - Tdap) [facility] Start: 1989 Adult BMI Follow Up Plan Adult BMI F ollow Up Plan [facility] Start: 1983 Depression Screening Depression Scre ening [facility] Start: 1971 Tobacco Counseling Tobacco Counselin g [facility] Immunizations Immunization Date Immunization Notes Care Provider Lauren lora NEGATED: Highlighted row has not occurred!2023 SARS-CoV-2 mRNA (tozinameran 5y-11y) vaccine [employer] [facility] [place] NEGATED: Highlighted row has not occurred!12-03-2022 influenza virus vaccine, unspecified formulation [employer] [facility] [place] NEGATED: Highlighted row has not occurred!12-03-2022 SARS-CoV-2 mRNA (tozinameran 5y-11y) vaccine [employer] [facility] [place] NEGATED: Highlighted row has not occurred!05-14-2022 SARS-CoV-2 mRNA (tozinameran 5y-11y) vaccine [employer] [facility] [place] Payers Date Payer Category Payer Medicaid [id number] 2023 Unknown [facility] [id number] 2023-Present [phone] [place] [address] [id number]. [id number] 2020 Commercial Managed C are - POS [id number]. [id number] 2020 Managed Care HMO (unspecified) [employer] 1.2.840.315617.1.13.693. [id number] 2020 Private Health Insurance [id number]. 2.7.3.277931.315 2020 Private Health Insurance [id number] 1971 Unknown [id number] 2.16.840.1.098499.3.579. 2.593 1971 Unknown [id number] 2.16.840.1.969380.3.579. 2.593 1971 Unknown [id number] 2.16.840.1.964912.3.579. 2.593 1971 Unknown [id number] 2.16.840.1.966371.3.579. 2.593 1971 Unknown [id number] 2.16.840.1.096499.3.579. 2.593 1971 Unknown [id number] 2.16.840.1.719848.3.579. 2.593 1971 Unknown [id number] 2.16.840.1.655577.3.579. 2.593 1971 Unknown [id number] 2..840.1.750757.3.579. 2.593 1971 Unknown [id number] 2.16.840.1.036592.3.579. 2.175 1971 Unknown [id number] 2.840.1.647725.3.579. 2.1259 1971 Unknown [id number] 2..840.1.872651.3.579. 2.1259 1971 Unknown [id number] 2.840.1.121201.3.579. 2.72 1971 Unknown [id number] 2.840.1.157906.3.579. 2.727 1971 Unknown [id number] 2.840.1.042637.3.579. 2.72 1971 Unknown [id number] 2.840.1.170452.3.579. 2.727 1971 Unknown [id number] 2.840.1.830472.3.579. 2.727 1971 Unknown [id number] 2..840.1.228235.3.579. 2.727 1971 Unknown [id number] 2.16840.1.077567.3.579. 2.727 1971 Unknown [id number] 2.16.840.1.518421.3.579. 2.727 1971 Unknown [id number] 2.840.1.809403.3.579. 2.727 1971 Unknown [id number] 2.16.840.1.882843.3.579. 2.727 1971 Unknown [id number] 2.16.840.1.341206.3.579. 2. 1971 Unknown [id number] 2.16.840.1.225471.3.579. 2. 1971 Unknown [id number] 2.16.840.1.878321.3.579. 2. 1971 Unknown [id number] 2.16.840.1.534845.3.579. 2. 1971 Unknown [id number] 2.16.840.1.110224.3.579. 2. 1971 Unknown [id number] 2.16.840.1.266959.3.579. 2 1971 Unknown [id number] 2.16.840.1.454612.3.579. 2. 1971 Unknown [id number] 2.16.840.1.546964.3.579. 2. 1971 Unknown [id number] 2.16.840.1.179602.3.579. 2 1971 Unknown [id number] 2.16.840.1.226183.3.579. 2. 1971 Unknown [id number] 2.16.840.1.656404.3.579. 2. 1971 Unknown [id number] 2.16.840.1.223899.3.579. 2.72 1971 Unknown [id number] 2.16.840.1.293419.3.579. 2 1971 Unknown [id number] 2.16.840.1.268250.3.579. 2.727 1959 Self-pay 1959 Unknown [id number] Social History Date Type Detail Facility Start: 05-14-2022 End: 10-02-2022 Tobacco smoking status Heavy tobacco smoker (finding) [facility] [place] Tobacco smoking status Never [facility] [place] Start: 01-08-2024 End: 01-13-2025 Sex Assigned At Male [facility] [place] Start: 11-13-2022 End: 03-25-2025 Tobacco smoking status Light tobacco smoker (finding) [facility] Tobacco smoking stat [facility] Tobacco smoking consumption unknown [facility] Start: 1971 Sex assigned at Not on file [facility] Start: 09-16-1980 End: 08-26-2024 Tobacco smoking status NDIS Smokes tobacco daily [facility] Start: 09-16-1980 End: 09-16-2023 History of tobacco use Cigarette Smoker [facility] Start: 08-26-2024 End: 01-13-2025 Cigarettes smoked current (pack per day) - Reported 0.5 [facility] Start: 01-08-2024 End: 08-26-2024 Tobacco use and exposure Smokeless tobacco non-user [facility] Start: 08-26-2024 End: 01-13-2025 Alcoholic beverage intake Ex-drinker (finding) [facility] Has the [email or web address], or [employer] threatened to shut off services in your home in past 12Mo No [facility] How often to you hav e a drink containing alcohol? Never [facility] Start: 10-21-2023 Tobacco Comment Smoking down to about 6 sticks a day since last year [facility] Start: 1971 Sex assigned at Male [facility] Start: 04-21-2015 End: 12-04-2018 Sex Male (finding) [facility] Start: 10-21-2023 Gender identity Identifies as male gender (finding) [facility] Start: 10-21-2023 Sexual orientation Heterosexual (finding) [facility] Start: 01-08-2024 Tobacco smoking status NHIS Ex-smoker [facility] Start: 09-16-1980 End: 09-16-2023 History of tobacco use Current smoker [facility] Sexual Orientation [facility] Medical Equipment Procedure Code Equipment Code Equipment [...] towards goal: plan is to return to care home upon heart conversion to RSR Functional Status Date Assessment Result Facility 09-23-2024 Functional Status N/A [facility] [place] 09-02-2024 Functional Status N/A [facility] 2023 Functional Status N/A [facility] 12-11-2022 Functional Status N/A [facility] [place] 12-03-2022 Functional Status N/A [facility] [place] 11-21-2022 Functional Status No [facility] 10-02-2022 Functional Status N/A [facility] 11-22-2022 Functional Status N/A [facility] 06-13-2022 Functional Status N/A [facility] 05-14-2022 Functional Status N/A [facility] [place] Clinical Notes 05-14-2022 to 05-05-2025 Telephone Encounter - Bre Lauren RN - 03/30/2025 12:25 AM EDTTelephone Encounter - Bre Lauren RN - 03/30/2025 12:25 AM Rex Chappell MD - 01/13/2025 2:45 PM EDTPatient Instructions Note Date & Type Note Facility 05-05-2025 Hospital Discharge instructions Patient Education 05/05/2025 12:05:29 Benign Prostatic Hyperplasia Benign Prostatic Hyperplasia Benign [...] urethra. Follow these instructions at home: Take [id number] and prescription medicines only as told by [...] provider. Document Revised: 03/21/2022 Document Reviewed: 03/21/2022 [employer] Patient Education 2023 [employer]. 05/05/2025 12:05:24 Hypogonadism, Male Hypogonadism, Male Male hypogonadism is a condition of having a level of testosterone that is lower than normal. Testosterone is a chemical, or hormone, that is made mainly in the testicles. In boys, testosterone is responsible for the development of male characteristics during puberty. These include: Making the penis bigger. Growing and building the muscles. Growing facial hair. Deepening the voice. In adult men, testosterone is responsible for maintaining: An interest in sex and the ability to have sex. Muscle mass. Sperm production. Red blood cell production. Bone strength. Testosterone also gives men energy and a sense of well-being. Testosterone normally decreases as men age and the testicles make less testosterone. Testosterone levels can vary from man to man. Not all men will have signs and symptoms of low testosterone. Weight, alcohol use, medicines, and certain medical conditions can affect a man's testosterone level. What are the causes? This condition is caused by: A natural decrease in testosterone that occurs as a man grows older. This is the main cause of this condition. Use of medicines, such as antidepressants, steroids, and opioids. Diseases and conditions that affect the testicles or the making of testosterone. These include: ?Injury or damage to the testicles from trauma, cancer, cancer treatment, or infection. ?Diabetes. ?Sleep apnea. ?Genetic conditions that men are born with. ?Disease of the pituitary gland. This gland is in the brain. It produces hormones. ?Obesity. ?Metabolic syndrome. This is a group of diseases that affect blood pressure, blood sugar, cholesterol, and belly fat. ?HIV or AIDS. ?Alcohol abuse. ?Kidney failure. ?Other long-term or chronic diseases. What are the signs or symptoms? Common symptoms of this condition include: Loss of interest in sex (low sex drive). Inability to have or maintain an erection (erectile dysfunction). Feeling tired (fatigue). Mood changes, like irritability or depression. Loss of muscle and body hair. Infertility. Large breasts. Weight gain (obesity). How is this diagnosed? Your health care provider can diagnose hypogonadism based on: Your signs and symptoms. A physical exam to check your testosterone levels. This includes blood tests. Testosterone levels can change throughout the day. Levels are highest in the morning. You may need to have repeat blood tests before getting a diagnosis of hypogonadism. Depending on your medical history and test results, your health care provider may also do other tests to find the cause of low testosterone. How is this treated? This condition is treated with testosterone replacement therapy. Testosterone can be given by: Injection or through pellets inserted under the skin. Gels or patches placed on the skin or in the mouth. Testosterone therapy is not for everyone. It has risks and side effects. Your health care provider will consider your medical history, your risk for prostate cancer, your age, and your symptoms before putting you on testosterone replacement therapy. Follow these instructions at home: Take cqtc-xrf-gbsddql and prescription medicines only as told by your health care provider. Eat foods that are high in fiber, such as beans, whole grains, and fresh fruits and vegetables. Limit foods that are high in fat and processed sugars, such as fried or sweet foods. If you drink alcohol: ?Limit how much you have to 0 2 drinks a day. ?Know how much alcohol is in your drink. In the [place] one drink equals one 12 oz bottle of beer (355 mL), one 5 oz glass of wine (148 mL), or one 1 oz glass of hard liquor (44 mL). Return to your normal activities as told by your health care provider. Ask your health care provider what activities are safe for you. Keep all follow-up visits. This is important. Contact a health care provider if: You have any of the signs or symptoms of low testosterone. You have any side effects from testosterone therapy. Summary Male hypogonadism is a condition of having a level of testosterone that is lower than normal. The natural drop in testosterone production that occurs with age is the most common cause of this condition. Low testosterone can also be caused by many diseases and conditions that affect the testicles and the making of testosterone. This condition is treated with testosterone replacement therapy. There are risks and side effects of testosterone therapy. Your health care provider will consider your age, medical history, symptoms, and risks for prostate cancer before putting you on testosterone therapy. This information is not intended to replace advice given to you by your health care provider. Make sure you discuss any questions you have with your health care provider. Document Revised: 05/04/2021 Document Reviewed: 05/04/2021 [employer] Patient Education 2023 [employer]. Follow Up Care 03/17/2025 09:32:52 With:Fabian LINDQUIST, WESLEY Rooney, [facility] Address: [address] [place] [place] [phone] When: Unknown Comments:2 mos w/ T, Hct, PSA [facility] 05-05-2025 Note Patient Education Urology Benign Prostatic Hyperplasia Benign prostatic hyperplasia (BPH) [...] or symptoms? Symptoms of this condition include: ??? Getting up often during the night to urinate. ??? Needing to urinate frequently during the day. ??? Difficulty starting urine flow. ??? Decrease in size and strength of your urine stream. ??? Leaking (dribbling) after urinating. ??? Inability to pass urine. This needs immediate treatment. ??? Inability to completely empty your bladder. ??? Pain when you pass urine. This is more common if there is also an infection. ??? Urinary tract infection (UTI). How is this diagnosed? This condition is diagnosed based on your medical history, a physical exam, and your symptoms. Tests will also be done, such as: ??? A post-void bladder scan. This measures any amount of urine that may remain in your bladder after you finish urinating. ??? A digital rectal exam. In a rectal exam, your health care provider checks your prostate by putting a lubricated, gloved finger into your rectum to feel the back of your prostate gland. This exam detects the size of your gland and any abnormal lumps or growths. ??? An exam of your urine (urinalysis). ??? A prostate specific antigen (PSA) screening. This is a blood test used to screen for prostate cancer. ??? An ultrasound. This test uses sound waves [...] severity of your condition. Treatment may include: ??? Observation and yearly exams. This may be the only treatment needed if your condition and symptoms are mild. ??? Medicines to relieve your symptoms, including: ? Medicines to shrink the prostate. ? Medicines to relax the muscle of the prostate. ??? Surgery in severe cases. Surgery may include: ? Prostatectomy. In this procedure, the prostate tissue is removed completely through an open incision or with a laparoscope or robotics. ? Transurethral resection of the prostate (TURP). In this procedure, a tool is inserted through the opening at the tip of the penis (urethra). It is used to cut away tissue of the inner core of the prostate. The pieces are removed through the same opening of the penis. This removes the blockage. ? Transurethral incision (TUIP). In this procedure, small cuts are made in the prostate. This lessens the prostate's pressure on the urethra. ? Transurethral microwave thermotherapy (TUMT). This procedure uses microwaves to create heat. The heat destroys and removes a small amount of prostate tissue. ? Transurethral needle ablation (TUNA). This procedure uses radio frequencies to destroy and remove a small amount of prostate tissue. ? Interstitial laser coagulation (ILC). This procedure uses a laser to destroy and remove a small amount of prostate tissue. ? Transurethral electrovaporization (TUVP). This procedure uses electrodes to destroy and remove a small amount of prostate tissue. ? Prostatic urethral lift. This procedure inserts an implant to push the lobes of the prostate away from the urethra. Follow these instructions at home: ??? Take upts-ced-eifzihw and prescription medicines only as told by your health care provider. ??? Monitor your symptoms for any changes. Contact your health care provider with any changes. ??? Avoid drinking large amounts of liquid before going to bed or out in public. ??? Avoid or reduce how much caffeine or alcohol you drink. ??? Give yourself time when you urinate. ??? Keep all follow-up visits. This is important. Contact a health care provider if: ??? You have unexplained back pain. ??? Your symptoms do not get (more content not included)... [facility] 03-30-2025 Miscellaneous Notes Ov-01/13/25 Bmp and mg-11/20/24 documented in this encounter [facility] 03-30-2025 Telephone encounter Note Ov-01/13/25 Bmp and mg-11/20/24 [facility] 03-26-2025 Note Patient Education Orthopedics Shoulder [...] strengthen the arm. General instructions ??? Take wycd-pvp-gpzteyg and prescription medicines only as told by [...] provider. Document Revised: 04/05/2023 Document Reviewed: 04/05/2023 [employer] Patient Education ? 2023 [employer]. [facility] 01-13-2025 History of Present illness Narrative Regis Horta Date of visit: 01/13/2025 Date of : 1970 Age: 54 y.o. Patient Active Problem List Diagnosis Anxiety Asthma COPD (chronic obstructive pulmonary disease) ([facility] Hyperlipemia, mixed Insomnia due to medical condition Paroxysmal atrial fibrillation ([facility]) Coronary artery disease involving galena coronary artery of galena heart without angina pectoris Subarachnoid hematoma with loss of consciousness, initial encounter ([facility] Atrial fibrillation with RVR ([facility]) Transaminitis Right upper quadrant abdominal pain Chest pain Chronic cough Fatigue Lower extremity numbness Panlobular emphysema ([facility]) Allergies Allergen Reactions Cardizem [Diltiazem Hcl] Dizziness [...] 90s. Past Medical History: Diagnosis Date A-fib ([facility]) BPH (benign prostatic hyperplasia) CHF (congestive heart failure) ([facility]) COPD (chronic obstructive pulmonary disease) ([facility]) Hernia, inguinal HTN (hypertension) Insomnia Kidney injury Narcolepsy Pancreatitis S/P primary angioplasty with coronary stent 02/14/2023 Seizure ([facility]) Smoker No data recorded No data recorded No data recorded Past Surgical History: Procedure Laterality Date Afib/Typical Ablation - CARTO, ICE, PFA N/A 11/25/2024 Performed by Arthur Chappell MD at [facility] (EP) COLONOSCOPY EP Invasive N/A 11/25/2024 Performed by Arthur Chappell MD at [facility] () FACIAL RECONSTRUCTION SURGERY FACIAL RECONSTRUCTION SURGERY [...] Interpersonal Safety: Unknown (11/11/2024) Received from [facility] Humiliation, Afraid, Rape, and Kick questionnaire Fear [...] HULL MD Referring Physician: Maxime Hull MD [address] [place] [id number] documented in this encounter [facility] 01-13-2025 Instructions Anabel Miranda MA - 01/13/2025 2:45 PM EDT Are You Ready To Kick The Habit? Free Tobacco Cessation Resources [facility] Services [facility] provide all employees with free tobacco cessation services that include: Counseling to understand nicotine addiction Education about medications that can help you successfully quit Assistance with developing a plan to quit Call to set up an individual appointment or find out when group classes will be held: [facility]: [phone] [facility]: [phone] [facility]: [phone] [facility]: [phone] Quit Smoking Action Plan and Resources [facility] offers an eight-week, online smoking cessation plan to all [facility] employees, regardless of whether [employer] is your medical insurance provider. Go to [email or web address] and click the Health Risk Assessment and Resources link to get started. In the [employer] menu, click Action Plans instead of Health Risk Assessment to access the Quit Smoking Action Plan. Additional smoking cessation resources are also available to all [facility] employees on the Hnzgc4Ddnite web page at www.[employer]/quits dee. [employer] Tobacco Cessation Program If [employer] is your medical insurance provider, there are more free resources available to you, including: No copays or deductibles on local tobacco cessation counseling services to help you quit Prescription assistance for tobacco cessation medications to help you quit For details about the tobacco cessation program available to [employer] members, go to www.Apontador.Cumed (Search: Tobacco Cessation Program). [place] Tobacco Quit Line 8-042-VKGH-NOW ( ) is a toll-free, telephonic service that helps [place] residents quit smoking and using tobacco. It is staffed by experts who tailor a quit plan for you and provide you with advice. [place] Tobacco Quit Line 5-873-ZWTL-NOW ( ) is a toll-free, telephonic service that helps [place] residents quit smoking and using tobacco. It is staffed by experts who tailor a quit plan for you and provide you with advice. Two weeks of nicotine replacement therapy may be provided at no charge, if needed. Additional Resources These national organizations also offer free information and resources to help you quit tobacco: [place] Cancer Society--www.cancer.org/healthy/s tayawayfromtobacco [place] Heart Association--www.heart.org (Search: Quit Smoking) Centers for Disease Control and Prevention--www.cdc.gov/tobacco [place] Lung Association--www.lungusa.org documented in this encounter [facility] 01-12-2025 Miscellaneous Notes ATTEMPTED TO CALL PT TO REMIND OF APPT SCHEDUELD FOR 01/13/25, NO VOICE MAIL SET UP OR VOICE MAIL FULL. documented in this encounter [facility] 01-12-2025 Telephone encounter Note ATTEMPTED TO CALL PT TO REMIND OF APPT SCHEDUELD FOR 01/13/25, NO VOICE MAIL SET UP OR VOICE MAIL FULL. [facility] 01-06-2025 Hospital Discharge instructions Follow Up Care 01/06/2025 09:33:25 With:Fabian LINDQUIST, Varsha Rogers, WESLEY, URO Address: [address] [place] [address] [phone] When: Unknown [facility] 01-06-2025 Note Patient Education Pulmonary Medicine Steps [...] require a prescription. You can also purchase rtim-gly-zswaiud medicines. Medicines may have nicotine in them [...] and encouragement. Call telephone quitlines, such as 8-011-KUAU-NOW, reach out to support groups, or work [...] away, not s (more content not included)... [facility] 11-23-2024 Note Patient Education Nutrition BMI for [...] for Disease Control and Prevention: cdc.gov ??? [place] Heart Association: heart.org ??? National Heart, Lung, and Blood [place]: nhlbi.nih.gov This information is not intended to replace advice given to you by your health care provider. Make sure you discuss any questions you have with your health care provider. Document Revised: 05/23/2023 Document Reviewed: 05/16/2023 [employer] Patient Education ? 2023 [employer]. [facility] 11-11-2024 Note Subjective Patient ID: Regis Horta [...] past 36 hour(s)). No follow-ups on file. [facility] 11-02-2024 Note Patient: Regis Horta Procedure Summary Date: 11/02/24 Room / Location: [facility] OPERATING ROOM 13 / [facility] Operating Room Anesthesia Start: 1326 Anesthesia Stop: 154 Procedure: ROBOT-ASSISTED RIGHT INGUINAL HERNIA REPAIR WITH [...] per anesthesia protocol. No notable events documented. [facility] 11-02-2024 Note Patient: Regis Horta Procedure Summary Date: 11/02/24 Room / Location: [facility] OPERATING ROOM 13 / [facility] Operating Room Anesthesia Start: 1326 Anesthesia Stop: Procedure: ROBOT-ASSISTED RIGHT INGUINAL HERNIA REPAIR WITH MESH (Right) Diagnosis: Right inguinal hernia (Right inguinal hernia [K40.90]) Surgeons: Nunu Park MD Responsible Provider: Marcio Rosario MD Anesthesia Type: general ASA Status: 3 Anesthesia Post Transport Note Transport to: PACU O2 Route: nasal cannula Oxygen Flow (L/min): 3 Patient Monitor: direct observation Transport: uneventful Patient condition is: stable [facility] 11-02-2024 Note Patient: Regis Horta Procedure Information Anesthesia Start Date/Time: 11/02/24 1327 Procedure: ROBOT-ASSISTED RIGHT (POSSIBLE BILATERAL ) INGUINAL HERNIA REPAIR WITH MESH (Right) Location: [facility] OPERATING ROOM 13 / [facility] Operating Room Surgeons: Nunu Park [...] with attending and CAA. Additional Equipment Requests [facility] 11-02-2024 Note Airway Date/Time: 11/02/2024 1:39 PM Urgency: elective Airway not difficult General Information and Staff Patient location during procedure: OR Anesthesiologist: Marcio Rosario MD Resident/CORPORATE DEVELOPMENT ANALYST/CAA: JIM Price Performed: resident/CORPORATE DEVELOPMENT ANALYST/CAA Indications and Patient Condition Indications for airway [...] Eyes taped after induction, before airway management [facility] 10-20-2024 History of Present illness Narrative Regis Rae Horta Date of visit: 10/20/2024 Date of : 1970 Age: 54 y.o. Patient Active Problem List Diagnosis Anxiety Asthma COPD (chronic obstructive pulmonary disease) ([facility] Hyperlipemia, mixed Insomnia due to medical condition Paroxysmal atrial fibrillation ([facility]) Coronary artery disease involving galena coronary artery of galena heart without angina pectoris Subarachnoid hematoma with loss of consciousness, initial encounter ([facility]) Atrial fibrillation with RVR ([facility]) Transaminitis Right upper quadrant abdominal pain Allergies [...] presents with Pre-op Exam PREOP CLEARANCE DR VIVIAN CALDERON Atrial Fibrillation Coronary Artery Disease History of Present Illness 54-year-old gentleman CAD PCI of the proximal to mid LAD November 2022, hypertension, COPD, history of methamphetamine use and substance abuse, chronic systolic heart failure, EF 40% and paroxysmal AFib who we have been asked see for preoperative cardiac clearance He was seen by my partner of the slip sheeter, Dr. chappell it was reported that amiodarone and improved her decrease the frequency of the paroxysmal AFib in flutter Is for an AFib ablation Past Medical History: Diagnosis Date A-fib ([facility]) BPH (benign prostatic hyperplasia) CHF (congestive heart failure) ([facility]) COPD (chronic obstructive pulmonary disease) ([facility]) Hernia, inguinal HTN (hypertension) Insomnia Kidney injury Narcolepsy Pancreatitis S/P primary angioplasty with coronary stent 02/14/2023 Seizure ([facility] Smoker No data recorded No data recorded [...] Interpersonal Safety: Unknown (10/07/2024) Received from [facility] Humiliation, Afraid, Rape, and Kick questionnaire Fear [...] HULL MD Referring Physician: Maxime Hull MD [address] [place] [phone] documented in this encounter [facility] 10-20-2024 Instructions Anabel Muro CMA - 10/20/2024 11:00 AM EST Are You Ready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 Images from the [...] 1 month of cardiac med refills to [facility]. Please let us know if you need them sent to another pharmacy. Also, please keep our office updated on your ER visit! Thank you! Andrea LANE This [address] message has not been read. March 31, 2024 Christy oK MD to Md 03/31/24 7:20 PM Note Can give 1 mo refills of cardiac meds he was on previously when saw him but he needs seen in ED Has known CAD and AF with RVR Regis Horta to [facility] Clinical Staff (supporting Haroldo Oshea MD) 03/31/24 4:41 PM Correct I have been with out medications since I left the [facility] care home in January they were suppose to follw [...] 8:58 AM on 04/01/2024. Regis Horta to [facility] Clinical Staff (supporting Haroldo Oshea MD) 03/31/24 2:03 PM I currently don't have a way to check my blood pressure and I have been without my medication I am currently in a penitentiary house as my medication did not follow [...] 04/01/2024. March 30, 2024 Regis Horta to [facility] Clinical Staff (supporting Haroldo Oshea MD) CF 03/30/24 2:00 PM My resting heart rate is consistently 90-100 ocasionally reaching over 100 when should I be concerned? [facility] 11-08-2023 History of Present illness Narrative Regis Horta Date of visit: 11/08/2023 Date of : 1970 Age: 53 y.o. Patient Active Problem List Diagnosis Anxiety Asthma COPD (chronic obstructive pulmonary disease) ([facility]) Hyperlipemia, mixed Insomnia due to medical condition Paroxysmal atrial fibrillation ([facility]) Coronary artery disease involving galena coronary artery of galena heart without angina pectoris Allergies Allergen Reactions [...] use. Past Medical History: Diagnosis Date A-fib ([facility]) BPH (benign prostatic hyperplasia) CHF (congestive heart failure) ([facility]) COPD (chronic obstructive pulmonary disease) ([facility]) Hernia, inguinal HTN (hypertension) Insomnia Kidney injury Narcolepsy Pancreatitis S/P primary angioplasty with coronary stent 02/14/2023 Seizure ([facility]) Smoker No data recorded No data recorded [...] tablet Reorder IMPRESSIONS/PLAN 1. Paroxysmal atrial fibrillation ([facility]) 2. Coronary artery disease involving galena coronary artery of galena heart without angina pectoris Symptomatic paroxysmal atrial [...] for this encounter. documented in this encounter [facility] 11-08-2023 Miscellaneous Notes Addended by: CHRISTY KO on: 11/08/2023 10:51 AM Modules accepted: Orders Addended by: ANDREA MACHADO on: 11/08/2023 10:54 AM Modules accepted: Orders documented in this encounter [facility] 11-08-2023 Note Addended by: CHRISTY KO on: 11/08/2023 10:51 AM Modules accepted: Orders [facility] 11-08-2023 Note Addended by: ANDREA MCCLENDON on: 11/08/2023 10:54 AM Modules accepted: Orders [facility] 11-07-2023 Miscellaneous Notes Attempted to phone pt to remind of appt scheduled for 11/08/2023, no answer or vm. documented in this encounter [facility] 11-07-2023 Telephone encounter Note Attempted to phone pt to remind of appt scheduled for 11/08/2023, no answer or vm. [facility] 10-22-2023 Hospital course Narrative Images from the original note were not included. [facility] MD Lucia Molina, MD Devyn Vick, MD Ariana Velazquez, MD Enrico Chowdhury, MD Reyna Dye, MD Arie Foley, MD Michelle Mills, MD Inessa Anglin, [facility] Mouna Murphy, [facility] Susanne Riggs, [facility] Lorenza Gamez, [facility] Dia Monique, [facility] Gilma Puga[facility] Sejal Holguin, [facility] Radha Joel, [facility] El Dobson, [facility] Lois Ewing, [facility] Aleida Payton, [facility] Elisa Moreno, [facility] Nat Sotelo, [facility] John Hong, [facility] Sanjuana Flores, [facility] Aleida Almaraz, [facility] Bianca Lambert, [facility] Josue Cortez, [facility] Medicine Discharge Summary Patient: Regis Horta Date of : 1970 Room: [facility] Encounter date: 10/22/23 DATE OF ADMISSION: 10/20/2023 DATE OF DISCHARGE:10/22/2023 DISCHARGE DIAGNOSES Principal Problem: Atrial fibrillation with rapid ventricular response (CMS-HCC) Active Problems: Paroxysmal atrial fibrillation ([facility]) CONSULTANTS None PCP: NO PCP, NO PCP PROCEDURES None HOSPITAL COURSE SUMMARY Per HPI: Regis Horta is a 53 y.o. male who presents with Chest discomfort. Pt has been in care home which has prevented him from being able to take his medications for his atrial fibrillation. Pt had two stents placed by [facility] around 7 months ago. Pt is a diagnosed diabetic in which he takes Eliquis for. Though he has not been able to take it due to his incarnation. ER Course: Case was reviewed with bus mechanic, Dr. Ko. Agrees with care plan to [...] enforcement to take back to nurse at care home. 10/22/23, Hospital Day: 3 Interval History: Status: [...] mg b.i.d.. DISCHARGE INSTRUCTION Disposition: Custody of [facility] Condition: Good Activity: activity as tolerated [...] minutes were spent on discharging this patient. El Dobson APRN-ETELVINA, 10/22/2023 2:44 PM [facility] Medicine - [facility] Hospitalists 7AM-7PM: Message rounding BETY in [employer] or page through Courtanet. 7PM-7AM: Page on-call BETY through our answering service, . This note is dictated with the use of M*Modal. Please note that this dictation was completed with computer voice recognition software. Quite often unanticipated grammatical, syntax, homophones, and other interpretive errors are inadvertently transcribed by the computer software. Please disregard these errors. Please excuse any errors that have escaped final proofreading. El Dobson, AERONAUTICAL DRAFTER-DUAL RATE DEALER 10/22/23 1449 Attending Addendum: I Dr Arie [...] the physical exam and concur with the EBTY findings.I have reviewed all laboratory findings and imaging reprts/films.I agree with the plan as noted. documented in this encounter [facility] 10-22-2023 History of Present illness Narrative Images from the original note were not included. [facility] [facility] [address] [place] [address] PROGRESS NOTE Regis Horta was seen examined [...] kg (149 lb) Vitals: Vitals: 10/21/23 1815 10/21/23201210/22/23 0012 10/22/23 0328 BP: 110/76 97/60 111/63 [...] This note was completed using a voice concrete mixer operator system. Every effort was made to ensure accuracy. However, inadvertent computerized concrete mixer operator errors may be present. documented in this encounter [facility] 10-22-2023 Plan of care note Problem: Safety [...] at the bedside 7. Instruct patient/ patient inbound sales representative about use of safety devices 8. Include patient/ patient inbound sales representative in decisions related to safety Outcome: [...] breath sounds clear, not in respiratory distress. -[facility] 10-22-2023 Miscellaneous Notes Problem: Safety Goal: Patient [...] at the bedside 7. Instruct patient/ patient inbound sales representative about use of safety devices 8. Include patient/ patient inbound sales representative in decisions related to safety Outcome: [...] in respiratory distress. documented in this encounter [facility] 10-21-2023 Nurse Note 2013 Bun Panner tried to gather home med list. Pt. Was unsure of all his home medication list but able name some without the doses, like Plavix, Eliquis ,Topmax, Spiriva, Symbicort BD,Albuterol as needed Reglan. Inquire other alternatives how we can secure his med list but since his also in halfway there is no way to retrieve the list. Will call tom. RACQUEL juárez to get medication list information. [facility] 10-21-2023 Nurse Note 2013 Bun Panner tried to gather home med list. Pt. Was unsure of all his home medication list but able name some without the doses, like Plavix, Eliquis ,Topmax, Spiriva, Symbicort BD,Albuterol as needed Reglan. Inquire other alternatives how we can secure his med list but since his also in halfway there is no way to retrieve the list. Will call tom. RACQUEL juárez to get medication list information. documented in this encounter [facility] 10-21-2023 History and physical note Images from the original note were not included. [facility] MD Lucia Molina Becky, MD Devyn Vick, MD Ariana Velazquez, MD Enrico Chowdhury, MD Reyna Dye, MD Arie Foley, MD Michelle Mills, MD Inessa Anglin, DUAL RATE DEALER Mouna Murphy, DUAL RATE DEALER Susanne Riggs, DUAL RATE DEALER Lorenza Gamez, DUAL RATE DEALER Dia Monique, DUAL RATE DEALER Gilma Vivien, DUAL RATE DEALER Sejal Holguin, DUAL RATE DEALER Radha Joel, DUAL RATE DEALER El Dobson, DUAL RATE DEALER Lois Ewing, DUAL RATE DEALER Aleida Tata, DUAL RATE DEALER Elisa Tiffanie, DUAL RATE DEALER Nat Ashleigh, DUAL RATE DEALER John Hong, DUAL RATE DEALER Sanjuana Flores, DUAL RATE DEALER Aleida Almaraz, DUAL RATE DEALER Bianca Lambert, DUAL RATE DEALER Josue Cortez, [facility] Medicine History & Physical Patient: Regis Horta Date of : 1970 Room: 04/23 PCP: NO PCP, NO PCP Admission date: 10/20/2023 11:09 PM Encounter date: 10/21/23 SUBJECTIVE Regis Horta is a 53 y.o. male who presents with Chest discomfort. Pt has been in care home which has prevented him from being able to take his medications for his atrial fibrillation. Pt had two stents placed by sebastian sykes around 7 months ago. Pt is a diagnosed diabetic in which he takes Eliquis for. Though he has not been able to take it due to his incarnation. ER Course: Case was reviewed with bus mechanic, Dr. Ko. Agrees with care plan to [...] has a past medical history of A-fib ([facility]). Past Surgical History: Patient has no past [...] Murmur heard. Comments: Atrial fibrillation noted on monitor worker with heart rate between 110 and 130. 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 Cardiology consult. Echocardiogram ordered. Cardiology following: Restart [...] results. El Dobson APRN-ETELVINA, 10/21/2023 3:34 PM [facility] 7AM-7PM: Message rounding BETY in [id number] or page through [employer]. 7PM-7AM: Page on-call BETY through our answering service, . This note is dictated with the use of M*Modal. Please note that this dictation was completed with computer voice recognition software. Quite often unanticipated grammatical, syntax, homophones, and other interpretive errors are inadvertently transcribed by the computer software. Please disregard these errors. Please excuse any errors that have escaped final proofreading. El Dobson, [facility] 10/21/23 1534 Attending Addendum: I Dr Arie Foley, personally [...] reprts/films.I agree with the plan as noted. [facility] 10-21-2023 History and physical note Images from the original note were not included. [facility] MD Lucia Molina, MD Devyn Vick, MD Ariana Velazquez, MD Enrico Chowdhury, MD Reyna Dye, MD Arie Foley, MD Michelle Mills, MD Inessa Anglin, ETELVINA Murphy, ETELVINA Rigsg, ETELVINA Gamez, ETELVINA Monique, ETELVINA Puga, ETELVINA Holguin, ETELVINA Joel, ETELVINA Dobson, ETELVINA Ewing, ETELVINA Payton, ETELVINA Moreno, ETELVINA Sotelo, ETELVINA Hong, ETELVINA Flores, ETELVINA Almaraz, ETELVINA Lambert, ETELVINA Cortez, DUAL RATE DEALER Hospital Medicine History & Physical Patient: Regis Horta Date of : 1970 Room: 04/23 PCP: NO PCP, NO PCP Admission date: 10/20/2023 11:09 PM Encounter date: 10/21/23 SUBJECTIVE Regis Horta is a 53 y.o. male who presents with Chest discomfort. Pt has been in care home which has prevented him from being able to take his medications for his atrial fibrillation. Pt had two stents placed by sebastian sykes around 7 months ago. Pt is a diagnosed diabetic in which he takes Eliquis for. Though he has not been able to take it due to his incarnation. ER Course: Case was reviewed with bus mechanic, Dr. Ko. Agrees with care plan to [...] has a past medical history of A-fib ([facility]). Past Surgical History: Patient has no past [...] Murmur heard. Comments: Atrial fibrillation noted on monitor worker with heart rate between 110 and 130. 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 Cardiology consult. Echocardiogram ordered. Cardiology following: Restart [...] echocardiogram results. GRANT Angeles, 10/21/2023 3:34 PM [facility] 7AM-7PM: Message rounding BETY in [id number] or page through [employer]. 7PM-7AM: Page on-call BETY through our answering service, . This note is dictated with the use of M*Modal. Please note that this dictation was completed with computer voice recognition software. Quite often unanticipated grammatical, syntax, homophones, and other interpretive errors are inadvertently transcribed by the computer software. Please disregard these errors. Please excuse any errors that have escaped final proofreading. GRANT Angeles 10/21/23 9244 Attending Addendum: I Dr Arie Foley, personally [...] plan as noted. documented in this encounter [facility] 10-21-2023 Consult note Associated Order (s): IP CONSULT TO CARDIOLOGY Images from the original note were not included. [facility] [address] [place] [address] HISTORY & PHYSICAL / CONSULT NOTE Regis Horta PCP: NO PCP, NO PCP Date of Admission: 10/20/2023 Date of Consultation: 10/21/2023 7:02 AM Consult for atrial fibrillation with RVR SUBJECTIVE History of Present Illness: Regis Horta is a 53 y.o. male with no significant past medical history. Patient currently incarcerated. Presented to [facility] complaining of heart racing and shortness of breath. Stated that this has been going on for 2 days. Also reported on off chest discomfort and lightheadedness. Denies syncope or presyncope. Stated that he was diagnosed with atrial fibrillation long time ago and has 2 stents, does not follow with Cardiology. 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 Stated that he [...] History: Past Medical History: Diagnosis Date A-fib ([facility]) Previous Surgical History: History reviewed. No pertinent surgical history. Allergies: No Known Allergies Hospital Meds: Current Facility-Administered Medications Medication Dose Route Frequency Provider Last Rate Last Admin acetaminophen (TYLENOL) tablet 650 mg 650 mg oral Q4H PRN Aleida L Veselka, AERONAUTICAL DRAFTER-DUAL RATE DEALER calcium gluconate 3,000 mg in sodium chloride 0.9 % 100 mL IVPB 3,000 mg intravenous PRN Aleida L Veselka, AERONAUTICAL DRAFTER-DUAL RATE DEALER calcium gluconate 4,000 mg in sodium chloride 0.9 % 250 mL IVPB 4,000 mg intravenous PRN Aleida L Veselka, AERONAUTICAL DRAFTER-DUAL RATE DEALER calcium gluconate IVPB 2000 mg/100 mL (20 mg/mL premix) 2,000 mg intravenous PRN Aleida L Veselka, AERONAUTICAL DRAFTER-DUAL RATE DEALER dextrose (GLUTOSE) 40 % gel 15 g 15 g oral PRN Aleida L Lemuelka, AERONAUTICAL DRAFTER-DUAL RATE DEALER dextrose 5 % (D5W) infusion 100 mL/hr intravenous Continuous PRN Aleida L Vesdannaka, AERONAUTICAL DRAFTER-DUAL RATE DEALER dextrose 50 % in water (D50W) 50% solution 25 mL 25 mL intravenous PRN Aleida L Lemuel, AERONAUTICAL DRAFTER-DUAL RATE DEALER glucagon HCL injection 1 mg 1 mg intramuscular PRN Aleida L Veselka, AERONAUTICAL DRAFTER-DUAL RATE DEALER heparin (porcine) injection 5,000 Units 5,000 Units subcutaneous Q8H [facility] Aleida Hdez, AERONAUTICAL DRAFTER-DUAL RATE DEALER 5,000 Units at 10/21/23 0646 magnesium sulfate IVPB 2000 mg/50 mL in iso-osmotic water (40 mg/mL premix) 2,000 mg intravenous PRN Aleida L Vesel, AERONAUTICAL DRAFTER-DUAL RATE DEALER magnesium sulfate IVPB 4000 mg/100 mL in iso-osmotic water (40 mg/mL premix) 4,000 mg intravenous PRN Aleida L Veselka, AERONAUTICAL DRAFTER-DUAL RATE DEALER ondansetron (PF) (ZOFRAN) injection 4 mg 4 mg intravenous Q8H PRN Aleida L Veselka, AERONAUTICAL DRAFTER-DUAL RATE DEALER pantoprazole (PROTONIX) EC tablet 40 mg 40 mg oral QAM AC Aleida Hdez, AERONAUTICAL DRAFTER-DUAL RATE DEALER potassium chloride (KLOR-CON M 20) CR tablet 30-50 mEq 30-50 mEq oral PRN Aleida L Vesdanna, AERONAUTICAL DRAFTER-DUAL RATE DEALER Or potassium chloride (KAYCIEL) 20 mEq/15 mL solution 30-50 mEq 30-50 mEq oral PRN Aleida L Veselka, AERONAUTICAL DRAFTER-DUAL RATE DEALER sennosides-docusate sodium (SENOKOT-S) 8.6-50 mg 1 tablet 1 tablet oral Q12H PRN Aleida L Veselka, AERONAUTICAL DRAFTER-DUAL RATE DEALER sodium phosphate 20 mmol in sodium chloride 0.9 % 250 mL IVPB 20 mmol intravenous PRN Aleida L Veselka, AERONAUTICAL DRAFTER-DUAL RATE DEALER Or sodium phosphate 20 mmol in sodium chloride 0.9 % 100 mL IVPB 20 mmol intravenous PRN Aleida L Veselka, AERONAUTICAL DRAFTER-DUAL RATE DEALER Or sod phos di, mono-K phos mono (K-PHOS NEUTRAL) 250 mg tablet 2 tablet 2 tablet oral PRN Aleida L Veselka, AERONAUTICAL DRAFTER-DUAL RATE DEALER sodium chloride 0.9 % flush 3 mL 3 mL intravenous PRN Ernesto Leon MD sodium chloride 0.9 % flush 3 mL 3 mL intravenous Q12H [facility] Ernesto Leon MD 3 mL at 10/21/23 0209 sodium chloride 0.9 % flush bag 25 mL intravenous PRN Aleida L Veselka, AERONAUTICAL DRAFTER-DUAL RATE DEALER sodium chloride 0.9 % infusion 20 mL/hr intravenous Continuous PRN Aleida L Veselka, AERONAUTICAL DRAFTER-DUAL RATE DEALER No current outpatient medications on file. Home [...] This note was completed using a voice concrete mixer operator system. Every effort was made to ensure accuracy. However, inadvertent computerized concrete mixer operator errors may be present. [facility] 10-21-2023 Consult note Associated Order (s): IP CONSULT TO CARDIOLOGY Images from the original note were not included. [facility] [address] [place] [address] HISTORY & PHYSICAL / CONSULT NOTE Regis Horta PCP: NO PCP, NO PCP Date of Admission: 10/20/2023 Date of Consultation: 10/21/2023 7:02 AM Consult for atrial fibrillation with RVR SUBJECTIVE History of Present Illness: Regis Horta is a 53 y.o. male with no significant past medical history. Patient currently incarcerated. Presented to [facility] complaining of heart racing and shortness of breath. Stated that this has been going on for 2 days. Also reported on off chest discomfort and lightheadedness. Denies syncope or presyncope. Stated that he was diagnosed with atrial fibrillation long time ago and has 2 stents, does not follow with Cardiology. 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 Stated that he [...] History: Past Medical History: Diagnosis Date A-fib ([facility]) Previous Surgical History: History reviewed. No pertinent surgical history. Allergies: No Known Allergies Hospital Meds: Current Facility-Administered Medications Medication Dose Route Frequency Provider Last Rate Last Admin acetaminophen (TYLENOL) tablet 650 mg 650 mg oral Q4H PRN Aleida L Veselka, AERONAUTICAL DRAFTER-DUAL RATE DEALER calcium gluconate 3,000 mg in sodium chloride 0.9 % 100 mL IVPB 3,000 mg intravenous PRN Aleida L Veselka, AERONAUTICAL DRAFTER-DUAL RATE DEALER calcium gluconate 4,000 mg in sodium chloride 0.9 % 250 mL IVPB 4,000 mg intravenous PRN Aleida L Veselka, AERONAUTICAL DRAFTER-DUAL RATE DEALER calcium gluconate IVPB 2000 mg/100 mL (20 mg/mL premix) 2,000 mg intravenous PRN Aleida L Veselka, AERONAUTICAL DRAFTER-DUAL RATE DEALER dextrose (GLUTOSE) 40 % gel 15 g 15 g oral PRN Aleida L Veselka, AERONAUTICAL DRAFTER-DUAL RATE DEALER dextrose 5 % (D5W) infusion 100 mL/hr intravenous Continuous PRN Aleida L Veselka, AERONAUTICAL DRAFTER-DUAL RATE DEALER dextrose 50 % in water (D50W) 50% solution 25 mL 25 mL intravenous PRN Aleida L Lemuelka, AERONAUTICAL DRAFTER-DUAL RATE DEALER glucagon HCL injection 1 mg 1 mg intramuscular PRN Aleida L Lemuelka, AERONAUTICAL DRAFTER-DUAL RATE DEALER heparin (porcine) injection 5,000 Units 5,000 Units subcutaneous Q8H [facility] Aleida Hdezka, AERONAUTICAL DRAFTER-DUAL RATE DEALER 5,000 Units at 10/21/23 0646 magnesium sulfate IVPB 2000 mg/50 mL in iso-osmotic water (40 mg/mL premix) 2,000 mg intravenous PRN Aleida L Aspenelka, AERONAUTICAL DRAFTER-DUAL RATE DEALER magnesium sulfate IVPB 4000 mg/100 mL in iso-osmotic water (40 mg/mL premix) 4,000 mg intravenous PRN Aleida L Lemuelka, AERONAUTICAL DRAFTER-DUAL RATE DEALER ondansetron (PF) (ZOFRAN) injection 4 mg 4 mg intravenous Q8H PRN Aleida Almaraz, AERONAUTICAL DRAFTER-DUAL RATE DEALER pantoprazole (PROTONIX) EC tablet 40 mg 40 mg oral QAM AC Aleida Almaraz, AERONAUTICAL DRAFTER-DUAL RATE DEALER potassium chloride (KLOR-CON M 20) CR tablet 30-50 mEq 30-50 mEq oral PRN Aleida L Sung, AERONAUTICAL DRAFTER-DUAL RATE DEALER Or potassium chloride (KAYCIEL) 20 mEq/15 mL solution 30-50 mEq 30-50 mEq oral PRN Aleida L Veselka, AERONAUTICAL DRAFTER-DUAL RATE DEALER sennosides-docusate sodium (SENOKOT-S) 8.6-50 mg 1 tablet 1 tablet oral Q12H PRN Aleida L Lemuelka, AERONAUTICAL DRAFTER-DUAL RATE DEALER sodium phosphate 20 mmol in sodium chloride 0.9 % 250 mL IVPB 20 mmol intravenous PRN Aleida L Veselka, AERONAUTICAL DRAFTER-DUAL RATE DEALER Or sodium phosphate 20 mmol in sodium chloride 0.9 % 100 mL IVPB 20 mmol intravenous PRN Aleida L Aspenelka, AERONAUTICAL DRAFTER-DUAL RATE DEALER Or sod phos di, mono-K phos mono (K-PHOS NEUTRAL) 250 mg tablet 2 tablet 2 tablet oral PRN Aleida L Veselka, AERONAUTICAL DRAFTER-DUAL RATE DEALER sodium chloride 0.9 % flush 3 mL 3 mL intravenous PRN Ernesto Leon MD sodium chloride 0.9 % flush 3 mL 3 mL intravenous Q12H [facility] Ernesto Leon MD 3 mL at 10/21/23 0209 sodium chloride 0.9 % flush bag 25 mL intravenous PRN GRANT Helton sodium chloride 0.9 % infusion 20 mL/hr intravenous Continuous PRN GRANT Helton No current outpatient medications on file. Home [...] This note was completed using a voice concrete mixer operator system. Every effort was made to ensure accuracy. However, inadvertent computerized concrete mixer operator errors may be present. documented in this encounter [facility] 10-21-2023 Emergency department Note Pt medicated per orders and updated on POC. No further needs at this time. Call light in reach. Pt updated on POC [facility] 10-21-2023 Emergency department Note Pt medicated [...] POC. no further needs at this time. Carton Repairer at door. Urine sent. Pt medicated with total of 10mg (5mg x2 doses) for Afib. Images from the original note were not included. History No chief complaint on file. Initial evaluation performed at 11:[address] Leon. Patient is a 53 y.o. female who presents to the ED for evaluation of Chest discomfort. Pt has been in care home which has prevented him from being able to take his medications for his atrial fibrillation. Pt had two stents placed by sebastian sykes around 7 months ago. Pt is a diagnosed diabetic in which he takes Eliquis for. Though he has not been able to take it due to his incarnation. History provided by: Patient station examiner used?: No There is no problem list [...] 5 mg of IV Lopressor ordered. [RS] 0583 Case was reviewed with bus mechanic, Dr. Ko. Agrees with care plan to continue IV Lopressor therapy. If the patient does not become rate controlled with this he would recommend digoxin loading. Will follow in consultation. He would like the patient admitted to the hospitalist service. [RS] 8391 Case reviewed with hospitalist KNOCKUP WORKER via [employer] who has accepted this patient as an admission to her service. [RS] [facility] Oct 21, 2023 0153 No improvement in [...] [RS] ED Course User Index [KM] Lavonne Reyescurtis Lucio DO [RS] Ernesto Leon MD Clinical [...] signing this emergency patient record, the Emergency Physician/KNOCKUP WORKER/PA-C attests that all entries made into the electronic medical record by shavon Hawkins prior to the Physician/KNOCKUP WORKER/PA-C signature reflect an accurate accounting of the evaluation and care rendered by that Emergency Physician/KNOCKUP WORKER/PA-C. The Emergency Physician/KNOCKUP WORKER/PA-C assumes full responsibility for those entries. The Emergency Physician/KNOCKUP WORKER/PA-C also attests that any patient testing or treatment that was instituted by nursing staff in accordance to Emergency Department Preemptive Guidelines have been reviewed and unless so stated elsewhere in this patient chart, the Physician/KNOCKUP WORKER/PA-C agrees with the testing and care provided. No Additional Attestations Donal Nick 10/20/23 0501 Donal Nick 10/20/23 2318 Ernesto Leon MD 10/20/23 2321 Donal Nick 10/20/23 2332 Ernesto Leon MD 10/21/23 220 documented in this encounter [facility] 10-21-2023 Emergency department Note Pt medicated per orders and updated on POC. No further needs at this time. Call light in reach and officer at bedside. [facility] 10-21-2023 Emergency department Note Pt medicated per orders and updated on POC. No s/sym of distress. No further needs at this time. Officer at bedside. Call light in reach [facility] 10-21-[address] Ko notified of HR. Verbal order for 50mg Lopressor and 5mg IVP and Cardiology will see pt in the AM [facility] 10-21-2023 Emergency department Note Aleida ESPINOZA notified that pts HR is still in afib and no maintenance rate control meds ordered for pt and cardiology notified as well Dr Ko [facility] 10-21-2023 Emergency department Note PT medicated again with 2nd dose of digoxin for HR. Pt is asymptomatic at this time with guard at bedside. No further needs at this time call light in reach [facility] 10-20-2023 Emergency department Note Pt medicated per orders and updated on POC. no further needs at this time. Carton Repairer at door. Urine sent. Pt medicated with total of 10mg (5mg x2 doses) for Afib. [facility] 10-20-2023 Physician Emergency department Note Images from the original note were not included. History No chief complaint on file. Initial evaluation performed at 11:[address] Leon. Patient is a 53 y.o. female who presents to the ED for evaluation of Chest discomfort. Pt has been in care home which has prevented him from being able to take his medications for his atrial fibrillation. Pt had two stents placed by sebastian sykes around 7 months ago. Pt is a diagnosed diabetic in which he takes Eliquis for. Though he has not been able to take it due to his incarnation. History provided by: Patient station examiner used?: No There is no problem list [...] Course ED Course as of 10/22/23 1443 [facility] Oct 20, 2023 2333 No appreciable change in heart rate with 5 mg of IV Lopressor. Additional 5 mg of IV Lopressor ordered. [RS] 2355 Case was reviewed with bus mechanic, Dr. Ko. Agrees with care plan to continue IV Lopressor therapy. If the patient does not become rate controlled with this he would recommend digoxin loading. Will follow in consultation. He would like the patient admitted to the hospitalist service. [RS] 2356 Case reviewed with hospitalist KNOCKUP WORKER via [employer] who has accepted this patient as an admission to her service. [RS] Mon Oct 21, 2023 0153 No improvement in [...] signing this emergency patient record, the Emergency Physician/KNOCKUP WORKER/PA-C attests that all entries made into the electronic medical record by shavon Hawkins prior to the Physician/KNOCKUP WORKER/PA-C signature reflect an accurate accounting of the evaluation and care rendered by that Emergency Physician/KNOCKUP WORKER/PA-C. The Emergency Physician/KNOCKUP WORKER/PA-C assumes full responsibility for those entries. The Emergency Physician/KNOCKUP WORKER/PA-C also attests that any patient testing or treatment that was instituted by nursing staff in accordance to Emergency Department Preemptive Guidelines have been reviewed and unless so stated elsewhere in this patient chart, the Physician/KNOCKUP WORKER/PA-C agrees with the testing and care provided. No Additional Attestations Donal Nick 10/20/23 2318 Donal Nick 10/20/23 2318 Ernesto Leon MD 10/20/23 2321 Donal Nick 10/20/23 2332 Ernesto Leon MD 10/21/23 2202 [facility] 2023 Hospital Discharge instructions Patient Education 2023 [...] require a prescription. You can also purchase [id number] medicines. Medicines may have nicotine in them [...] and encouragement. Call telephone quitlines, such as 1-522-EZSO-NOW, reach out to support groups, or work [...] provider. Document Revised: 08/24/2022 Document Reviewed: 08/24/2022 [employer] Patient Education 2022 [employer] Follow Up Care 04/17/2023 16:38:20 With:SADIE LINDQUIST FAAFP, KYLE Lujan Address: When: Unknown Comments:return as otherwise [facility] [place] 12-11-2022 Hospital Discharge instructions Patient Education 12/11/2022 [...] one of these risk factors: ?Being of -[place] descent. ?Having a family history of prostate [...] you: Are older than age 55. Are -[place]ic. Have a father, brother, or uncle who [...] 06/13/2018 Document Revised: 08/15/2018 Document Reviewed: 06/13/2018 [employer] Patient Education 2020 [employer]. Follow Up Care 12/10/2022 15:10:32 With:LUCIO LINDQUIST, Christy Neumann, URL Address: [address] [place], [place] [id number]- When: Unknown [facility] 12-03-2022 Hospital Discharge instructions Patient Education 12/03/2022 [...] an increased risk of the following: Sudden infant syndrome (SIDS). Respiratory infections. Lung cancer. Heart [...] these methods. Where to find more information [employer]: www.lung.org [place] [employer]: www.cancer.org Summary Smoking cigarettes is [...] 10/10/2005 Document Revised: 12/04/2018 Document Reviewed: 09/06/2017 [employer] Patient Education 2020 [employer]. Follow Up Care 11/26/2022 15:41:52 With:SADIE LINDQUIST FAAISAEL, KYLE Lujan Address: When: Unknown Comments:see referral, please update phone # and HIPAA [facility] [place] 11-21-2022 Evaluation + Plan note Extrac elmer [...] Daily, # 30 tab(s), Refills(s) 3, Pharmacy: [facility]/pharmacy #[id number], 157, cm, 11/21/22 7:04:00 EST, Height/Length Dosing, 70.3, kg, 11/21/22 7:04:00 EST, Weight Dosing atorvastatin, 80 mg = 1 tab(s), Oral, Daily, # 30 tab(s), Refills(s) 3, Pharmacy: [facility]/pharmacy #[id number], 157, cm, 11/21/22 7:04:00 EST, Height/Length Dosing, 70.3, kg, 11/21/22 7:04:00 EST, Weight Dosing clopidogrel, Tab, Misc, Once, Stop date 11/21/22 9:15:28 EST, Physician Stop, 11/21/22 9:15:28 EST clopidogrel, 75 mg = 1 tab(s), Oral, Daily, # 90 tab(s), Refills(s) 3, Pharmacy: [facility]/pharmacy #[id number], 157, cm, 11/21/22 7:04:00 EST, Height/Length [...] Auto Diff 11/13/22 Radiology* CV Cardiovascular 11/13/22 [facility]03-08-2023 Hospital Discharge instructions Patient Education 11/21/2022 10:57:57 CV - Cardiovascular PCI Discharge Instructions (CUSTOM) [place], [place] Cardiovascular PCI DISCHARGE INSTRUCTIONS Diet: Resume [...] hours post procedure: Actoplus MetGlucophageGlucophage XR GlucovanceAvandametFortamet Ibo-iovdqhevoYnhbikAyoc-pldjnisih GlumetzaJanumetMetaglip RiometGlycomet Minimal pain, soreness and/or discomfort is expected. If you are prescribed an aspirin and/or antiplatelet (such as Plavix, Brilinta or Effient) do NOT stop taking these medications for any reason without talking to your bus mechanic Site Care: Do not remove dressing for [...] you are interested in smoking cessation, contact [facility] at [phone], ext. [phone]. In the event you are unable to reach your physician, please call [facility] at [phone] and the sodium methylate operator will assist you. Seek Medicare Care [...] Up Care 11/14/2022 13:54:29 With:Ernesto Kelly Address: [address] [place] [phone] Business (1) When:12/05/2022 12:45:00 [facility]02-08-2023 NoteOPERATIVE NOTE OPERATION DATE: 10/24/2022 PREOPERATIVE DIAGNOSIS: [...] years for screening. CC: Patient's [facility] physicianThe [id number] NotePROCEDURE: XR PELVIS 1_2 VIEWS HISTORY: Unspecified fall COMPARISON: None. FINDINGS: BONES:No fracture, acute abnormality, or significant arthropathy. SOFT TISSUES:No visible soft tissue swelling. EFFUSION:None visible. OTHER: Negative. IMPRESSION: 1. No acute bone abnormality. Electronically authenticated by: KODY MACIEL Date: 2022-07-12 16:39[facility]08[facility] Hospital Discharge instructions Patient Education 05/14/2022 12:17:40 [...] Follow these instructions at home: Medicines Take cnmy-kbo-djbcwrl and prescription medicines only as told by [...] 08/30/2001 Document Revised: 08/15/2018 Document Reviewed: 09/18/2017 [place] Patient Education [employer]. Follow Up Care 04/16/2022 13:13:15 With:SADIE MELTON, KYLE Lujan Address: When: Unknown Comments:return for skin lesion removal with CB if he prefers. see referral [facility] 08-29-2022 Evaluation + Plan note Diagnostic Tests Pending * Testosterone Level Total 05/14/22 [facility] Evaluation + Plan note Future Appointments Appointment Date:06/27/2022 09:00:00 AM Scheduled Provider:Varsha Peralta MD Location:[facility] Appointment Type:URO New Patient General Surgery [place] Evaluation + Plan note Future Appointments Appointment Date:11/07/2022 11:30:00 AM Scheduled Provider:Lizy DUVAL CNP [facility] Type:Cardiology Follow [facility] (FT) [facility] Future Appointments Appointment Date:12/05/2022 12:45:00 PM Scheduled Provider:Ernesto Kelly MD [facility] Appointment Type:Cardiology Follow Up (FT) Future Scheduled Tests Laboratory* Basic Metabolic Panel 11/13/22 * CBC w/ Auto Diff 11/13/22 Radiology* CV Cardiovascular 11/13/22 [facility] Evaluation + Plan note Future Appointments Appointment Date:12/14/2022 10:15:00 AM Scheduled Provider:Lizy DUVAL CNP [facility] Appointment Type:Cardiology Follow Up (FT) Appointment Date:01/01/2023 09:15:00 AM Scheduled Provider:Christy VALDES MD Location:[facility] Appointment Type:URO Office Visit Future Scheduled Tests Laboratory* Basic Metabolic Panel 11/13/22 * CBC w/ Auto Diff 11/13/22 Radiology* CV Cardiovascular 11/13/22 [facility] Evaluation + Plan note Future Appointments Appointment Date:01/01/2023 09:15:00 AM Scheduled Provider:Christy VALDES MD Location:[facility] Appointment Type:URO Office Visit Future Scheduled Tests Laboratory* Basic Metabolic Panel 11/13/22 * CBC w/ Auto Diff 11/13/22 Radiology* CV Cardiovascular 11/13/22 [facility] Future Appointments Appointment Date:07/09/2023 10:15:00 AM Scheduled Provider:Christy VALDES MD Location:[facility] Appointment Type:URO Office Visit Future Scheduled Tests Laboratory* PSA Free & Total 01/01/23 * Basic Metabolic Panel 11/13/22 * CBC w/ Auto Diff 11/13/22 Radiology* CV Cardiovascular 11/13/22 [facility] Evaluation + Plan note Future Appointments Appointment Date:02/13/2024 02:15:00 PM Scheduled Provider:Maxime Hull MD Location:[facility] Appointment Type:FM Open Future Scheduled Tests Laboratory* PSA Free & Total 01/01/23 * Basic Metabolic Panel 11/13/22 * CBC w/ Auto Diff 11/13/22 Radiology* CV Cardiovascular 11/13/22 [facility] evaluation + Plan note Future Appointments Appointment Date:10/19/2024 01:15:00 PM Scheduled Provider:Maxime Hull MD Location:[facility] Appointment Type:FM Open [facility] evaluation + Plan note Future Appointments Appointment Date:10/19/2024 01:15:00 PM Scheduled Provider:Maxime Hull MD Location:[facility] Appointment Type: Open Appointment Date:12/30/2024 10:45:00 AM Scheduled Provider:Varsha Peralta MD Location:[facility] Appointment Type:URO Office Visit [facility] evaluation + Plan note Future Appointments Appointment Date:01/15/2025 11:00:00 AM Scheduled Provider: [facility] Appointment Type:CT Abdomen/Pelvis Combo () Appointment Date:02/10/2025 01:00:00 PM Scheduled Provider:Varsha Peralta MD Location:[facility] Appointment Type:URO Office Visit Appointment Date:02/23/2025 01:40:00 PM Scheduled Provider:Maxime Hull MD Location:[facility] Appointment Type: Open Diagnostic Tests Pending * Testosterone Level Total 01/06/25 * Urine Cytology ([facility]) 01/06/25 Future Scheduled Tests Radiology* CT Urogram 01/15/25 [facility] evaluation + Plan note Future Appointments Appointment Date:02/10/2025 01:00:00 PM Scheduled Provider:Varsha Peralta MD Location:[facility] Appointment Type:URO Procedure 15 min Appointment Date:02/23/2025 01:40:00 PM Scheduled Provider:Maxime Hull MD Location:[facility] Appointment Type:[facility] Evaluation + Plan note Future Appointments Appointment Date:02/23/2025 01:40:00 PM Scheduled Provider:Maxime Hull MD Location:[facility] Appointment Type: Open Future Scheduled Tests Laboratory* Estradiol Level 15/25 * Hematocrit 515/25 * Luteinizing Hormone 15/25 * Testosterone Level Total 01/28/25 [facility] evaluation + Plan note Future Appointments Appointment Date:08/11/2025 09:00:00 AM Scheduled Provider: Location:[facility] Appointment Type:URO Nurse Visit Appointment Date:08/18/2025 10:45:00 AM Scheduled Provider:Varsha Peralta MD Location:[facility] Appointment Type:URO Office Visit Appointment Date:09/27/2025 02:20:00 PM Scheduled Provider:SERINA ROTH CNP Location:[facility] Appointment Type: Open Future Scheduled Tests Laboratory* Estradiol Level 01/28/25 * Hematocrit 15 * Luteinizing Hormone 01/28/25 * Testosterone Level Total 01/28/25 [facility] evaluation + Plan note Future Appointments Appointment Date:06/15/2025 10:00:00 AM Scheduled Provider: Location:[facility] Appointment Type:URO Nurse Visit Appointment Date:08/11/2025 09:00:00 AM Scheduled Provider: Location:[facility] Appointment Type:URO Nurse Visit Appointment Date:08/18/2025 10:45:00 AM Scheduled Provider:Varsha Peralta MD Location:[facility] Appointment Type:URO Office Visit Appointment Date:09/27/2025 02:20:00 PM Scheduled Provider:SERINA ROTH CNP Location:[facility] Appointment Type: Open Future Scheduled Tests Laboratory* Estradiol Level 515/25 * Hematocrit 515/25 * Luteinizing Hormone 15/25 * Testosterone Level Total 15/25 [facility] evaluation note* Diagnosis Memory impairment- Primary Memory loss Complex regional pain syndrome type 1, affecting unspecified site History of traumatic brain injury Personal history of traumatic brain injury documented in this encounter [facility] HealthcareEvaluation note* Diagnosis Paroxysmal atrial fibrillation (CMS-HCC)- Primary Atrial fibrillation Preop cardiovascular exam- Primary Pre-operative cardiovascular examination Coronary artery disease involving galena coronary artery of galena heart without angina pectoris Paroxysmal atrial fibrillation (CMS-HCC) Atrial fibrillation Pulmonary emphysema, unspecified emphysema type (CMS-HCC) Hyperlipemia, mixed Mixed hyperlipidemia Paroxysmal atrial fibrillation (CMS-HCC) Atrial fibrillation [facility] Diagnosis Memory impairment- Primary Memory loss PTSD (post-traumatic stress disorder) (CMS/HCC) Posttraumatic stress disorder Anxiety and depression (CMS/HCC) Anisocoria Complex regional pain syndrome type 1, affecting unspecified site documented in this encounter [facility] HealthcareEvaluation note* Diagnosis Atrial fibrillation with rapid ventricular response (CMS-HCC)- Primary Atrial fibrillation with rapid ventricular response (CMS-HCC) Paroxysmal atrial fibrillation (CMS-HCC) Atrial fibrillation Paroxysmal atrial fibrillation (CMS-HCC) Atrial fibrillation [facility] Diagnosis Paroxysmal atrial fibrillation (CMS-HCC)- Primary Atrial fibrillation Coronary artery disease involving galena coronary artery of galena heart without angina pectoris documented [facility]* Diagnosis Coronary artery disease involving galena coronary artery of galena heart without angina pectoris- Primary Paroxysmal atrial fibrillation (CMS-HCC) Atrial fibrillation Hyperlipemia, mixed Mixed hyperlipidemia [facility]* Diagnosis Paroxysmal atrial fibrillation (CMS-HCC)- Primary Atrial fibrillation Paroxysmal atrial fibrillation (CMS-HCC)- Primary Atrial fibrillation Paroxysmal atrial fibrillation (CMS-HCC) Atrial fibrillation [facility] Diagnosis Paroxysmal atrial fibrillation (CMS-HCC) Atrial fibrillation Paroxysmal atrial fibrillation (CMS-HCC)- Primary Atrial fibrillation Paroxysmal atrial fibrillation (CMS-HCC) Atrial fibrillation [facility] Diagnosis Paroxysmal atrial fibrillation (CMS-HCC)- Primary Atrial fibrillation [facility]arrative No data available for this section [facility] Discharge instructions No data available for this section [facility] instructions[facility] on file documented in this [facility]Pro[facility] [...] on file documented in this [facility] System[facility] note No data available for this section [facility] Reason for referral (narrative) Referred by: Edward URBAN MD [facility] General Surgery [place] Summary Purpose Family History No Family History [...] this section No Family History Records Found Advance Directives No [...] Referred To Contact Procedures Discharge Follow-Up El Dobson APRN-DUAL RATE DEALER [address], [place] [address] Referral ID Status Reason Start Date Expiration Date V isits Requested Visits Authorized [id number] Pending Review 10/22/2023 10/21/2024 1 1 Specialty Diagnoses / Procedures Referred By Contac t Referred To Contact Diagnoses Paroxysmal atrial fibrillation ([facility]) Procedures Follow-up with primary care provider El Dobson, REDDY-DUAL RATE DEALER [address], [place] [address] Referral ID Status Reason Start Date Expiration Date V isits Requested Visits Authorized [id number] Pending Review 10/22/2023 10/21/2024 1 1 Specialty Diagnoses / Procedures Referred By Contac t Referred To Contact Procedures Adult diet El Dobson, REDDY-DUAL RATE DEALER [address], [place] [address] Referral ID Status Reason Start Date Expiration Date V isits Requested Visits Authorized [id number] Pending Review 10/22/2023 10/21/2024 1 1 Additional [...] section and content) DATE CREATED AUTHOR 03/07/2018 [facility] DATE CREATED AUTHOR AUTHOR'S ORGANIZ ATION 03/12/2018 [facility] DATE CREATED AUTHOR AUTHOR'S ORGANIZ ATION 11/21/2022 [facility] DATE CREATED AUTHOR AUTHOR'S ORGANIZ ATION 04/18/2024 [facility] DATE CREATED AUTHOR AUTHOR'S ORGANIZ ATION 07/22/2024 [facility] DATE CREATED AUTHOR AUTHOR'S ORGANIZ ATION 09/29/2024 [facility] dical [facility] DATE CREATED AUTHOR AUTHOR'S ORGANIZ ATION 10/20/2024 [facility] DATE CREATED AUTHOR AUTHOR'S ORGANIZ ATION 12/05/2024 [facility] DATE CREATED AUTHOR AUTHOR'S ORGANIZ ATION 01/09/2025 [facility] DATE CREATED AUTHOR AUTHOR'S ORGANIZ ATION 02/26/2025 [facility] DATE CREATED AUTHOR AUTHOR'S ORGANIZ ATION 03/31/2025 [facility] DATE CREATED AUTHOR AUTHOR'S ORGANIZ ATION 05/06/2025 [facility] DATE CREATED AUTHOR AUTHOR'S ORGANIZ ATION 05/20/2025 [facility] Care Team (unrecognized sect ion and content) Delivery Representative Relationship Specialty Start Date End Date Gideon Luna MD [address] [place] [address] PCP - General Family Medicine 04/08/24 Delivery Representative Relationship Specialty Start Date End Date Gideon Luna MD [address] [place] [phone] PCP - General Family Medicine 04/08/24 Delivery Representative Relationship Specialty Start Date End Date Gideon Luna MD [address] [place] [phone] PCP - General Family Medicine 04/08/24 Wendy Zhong, ALEXIS [address] [place] [phone] Nurse Practitioner Neurology 07/20/24 Regis Guerrero DO [address] [phone] Referring Physician Neurology 07/20/24 Delivery Representative Relationship Specialty Start Date End Date Maxime Hull MD [address] [place] [address] PCP - General Family Medicine 08/26/24 Delivery Representative Relationship Specialty Start Date End Date Maxime Hull MD [address] [place] [address] PCP - General Family Medicine 08/26/24 Delivery Representative Relationship Specialty Start Date End Date Maxime Hull MD [address] [place] [address] PCP - General Family Medicine 08/26/24 Delivery Representative Relationship Specialty Start Date End Date Gideon Luna MD [address] [place] [phone] PCP - General Family Medicine 04/08/24 Wendy Zhong NP [address] [phone] Nurse Practitioner Neurology 07/20/24 Regis Guerrero DO [address] [place] [address] Referring Physician Neurology 07/20/24 Delivery Representative Relationship Specialty Start Date End Date No Pcp, [place] [address] PCP - General Family Medicine 10/20/23 Delivery Representative Relationship Specialty Start Date End Date No Pcp, [place] [address] PCP - General Family Medicine 10/20/23 Delivery Representative Relationship Specialty Start Date End Date No Pcp, [place] [address] PCP - General Family Medicine 10/20/23 Delivery Representative Relationship Specialty Start Date End Date Kathy Noel [address] [place] [address] [place] [address] PCP - General Family Medicine 11/08/23 Delivery Representative Relationship Specialty Start Date End Date No Pcp, [place] [address] PCP - General Family Medicine 12/01/23 Delivery Representative Relationship Specialty Start Date End Date No Pcp, [place] [address] PCP - General Family Medicine 12/01/23 Delivery Representative Relationship Specialty Start Date End Date No Pcp, [place] [address] PCP - General Family Medicine 12/01/23 Delivery Representative Relationship Specialty Start Date End Date No Pcp, [place] [address] PCP - General Family Medicine 12/01/23 Delivery Representative Relationship Specialty Start Date End Date Maxime Hull MD [address] [place] [address] PCP - General Family Medicine 08/26/24 Delivery Representative Relationship Specialty Start Date End Date Maxime Hull MD [address] [place] [address] PCP - General Family Medicine 08/26/24 Delivery Representative Relationship Specialty Start Date End Date Maxime Hull MD [address] [place] [address] PCP - General Family Medicine 08/26/24 Reason [...] ASA Specialty Diagnoses / Procedures Referred By Reginaldo hicks Referred To Contact Diagnoses Tachycardia Atrial fibrillation with rapid ventricular response ([facility]) Arie Foley MD [address] [facility] , [address] [place] [address] Referral ID Status Reason Start Date Expiration Date Visits Re quested Visits Authorized [id number] 1 1 Reason Comments Follow-up EST PT [facility] 2023 AFIB SCHED W/PT Reason Onset Date Comments Cardiac Medication Refills 04/01/2024 Reason Comments Follow-up Hosp f/u - cath [facility]/Dr. Buckley 04/03 - sched appt w/pt Reason Onset Date Comments Med Refill 05/14/2024 Reason Onset Date Comments EP Surgery ( PVI/Typical) 08/26/2024 Reason Comments New Patient KNOCKUP WORKER A FIB PER [facility] ED W/ PT Specialty Diagnoses / Procedures Referred By Reginaldo hicks Referred To Contact Cardiology Diagnoses Paroxysmal atrial fibrillation ([facility]) Jude Alberto, AERONAUTICAL DRAFTER-DUAL RATE DEALER [address] [place] [address] Phone: tel: fax: [facility] [address] [place] [address] Phone: tel: fax: Referral ID Status Reason Start Date Expiration Date Visits Requested Visits Authorized [id number] Pending Review Specialty Services Required 04/23/2024 04/23/2025 [...] (NVAF) 0815 (Given - Provider: Leyda Richard RN)2208 (Given - Provider: Vicki Chiang RN) 1146 (Given - Provider: Amelie Lara - Comment: Pt was NPO.) digoxin (LANOXIN) injection 170 mcg (COMPLETED) 170 mcg (2.5 mcg/kg 68 kg), intravenous, Once, On Sat10/21/23 at 0035, For 1 dose, Administer IVP slowly over at least 5 minutes. Look-alike/sound-alike medication - verify indication for use. 0121 (Given - Provider: Deanna Malagon RN) digoxin (LANOXIN) injection 170 mcg (COMPLETED) 170 mcg (2.5 mcg/kg 68 kg), intravenous, Once, On Sat10/21/23 at 0155, For 1 dose, Administer IVP slowly over at least 5 minutes. Look-alike/sound-alike medication - verify indication for use. 0206 (Given - Provider: Deanna Malagon RN) digoxin (LANOXIN) injection 250 mcg (COMPLETED) 250 [...] Deanna Malagon RN)0646 (Given - Provider: Deanna Malagon RN) metoprolol (LOPRESSOR) injection 5 mg (COMPLETED) 5 mg, intravenous, Once, On Sat10/20/23 at 2315, For 1 dose, Look-alike/sound-alike medication - verify indication for use. 2321 (Given - Provider: Deanna Malagon RN) metoprolol (LOPRESSOR) injection 5 mg (COMPLETED) 5 mg, intravenous, Once, On Sat10/20/23 at 2335, For 1 dose, Look-alike/sound-alike medication - verify indication for use. 2338 (Given - Provider: Deanna Malagon RN) metoprolol (LOPRESSOR) injection 5 mg (COMPLETED) 5 mg, intravenous, Once, On Sat10/20/23 at 2355, For 1 dose, Look-alike/sound-alike medication - verify indication for use. 0040 (Given - Provider: Deanna Malagon RN) metoprolol (LOPRESSOR) injection 5 mg (COMPLETED) 5 [...] for use. 0433 (Given - Provider: Deanna Malagon RN) pantoprazole (PROTONIX) EC tablet 40 mg 40 [...] RN) 0542 (Given - Provider: Vicki Chiang, DOMINGO)0700 (Canceled Entry - Provider: Vicki Chiang RN) sodium chloride 0.9 % bolus (COMPLETED) 1,000 mL, intravenous, at 984 mL/hr, Administer over 61 Minutes, Once, On Sat10/20/23 at 2315, For 1 dose 2315 (Bolus from Existing Bag - Provider: Deanna Malagon RN) sodium chloride 0.9 % flush 3 mL 3 mL, intravenous, Every 12 hours scheduled, First dose on Sat10/20/23 at 2315 0209 (Given - Provider: Deanna Malagon, DOMINGO)1328 (Given - Provider: Lizy Mejia, DOMINGO)2208 (Given - Provider: Vicki Chiang, DOMINGO) 0900 (Not Given - Provider: Aleida Orlando, DOMINGO - Reason: IV infusing) sodium chloride 0.9 % flush 3 mL 3 mL, intravenous, Every 12 hours scheduled, First dose on Sat10/22/23 at 0915, Intra-Procedure (CV) 0915 (Not Given - Provider: Aleida Orlando, RN - Reason: NPO) PRN Medication Order 10/20/2023 10/21/2023 10/22/2023 acetaminophen (TYLENOL) tablet 650 mg 650 mg, oral, Every 4 hours PRN, mild pain - pain scale 1-3, headaches, temperature greater than 38 C, Temperature greater than 38.3 C, Starting on Sat10/21/23 at 0036, [Warning: Total Acetaminophen not to exceed more than 4 grams (4000 mg) in 24 hours] 1341 (Given - Provider: Lizy Mejia RN) 1145 (Given - Provider: Amelie Lara) calcium [...] BE BASED ON THE PRIMARY CLINICAL RECORDS. [employer] provides no warranty or guarantee of the accuracy or completeness of information in this document.
--- NOTE | 2025-06-07 12:51 | XR_ITS ---
The [address] [address] Patient Name: REGIS ERNANDEZ MRN: [id number] date: 1970 Sex: M Assigned Patient Location: ER Current Patient Location: ER Accession/Order Number: [id number] Exam Date: 06/07/2025 12:55 Report Date: 06/07/2025 13:44 At the request of: RIMA MAGALLON Procedure: XR hand LT min 3V XR hand LT min 3V 06/07/2025 1:01 PM SIGNS AND SYMPTOMS: Pain in left hand with swelling over the metacarpals and pain in the fifth digit PROTOCOL: Frontal, lateral, and oblique radiographs of the left hand COMPARISON: None FINDINGS: There is mild narrowing of the distal interphalangeal joints. No acute displaced fracture. There is soft tissue swelling over the dorsum of the hand. XR/XR hand LT min 3V IMPRESSION: No acute displaced fracture. Soft tissue swelling is noted over the dorsum of the metacarpals and metacarpophalangeal joints. Impression dictated by: Elvis Culp M.D. 06/07/2025 1:44 PM Dictation Location: [place] [address] Electronically authenticated by: [id number] Y Date: 06/07/2025 13:44
--- NOTE | 2025-06-07 12:56 | ED_ITS ---
HPI HPI - Extremity Injury (Upper) General Chief Complaint: Extremity Injury, Upper Stated Complaint: L HAND INJURY Time Seen by Provider: 06/07/25 12:48 Source: patient Mode of arrival: walk-in History of Present Illness HPI narrative: 54-year-old male presents to the ED with left hand pain after punching a wall this morning. He reports immediate pain localized to the lateral aspect of the hand. He is able to fully extend and flex his fingers without difficulty. He denies numbness, tingling, weakness, or wrist/forearm pain. No prior injuries to this hand. He has not taken medication or applied ice before arrival. MD complaint: injury to: Reports left and hand Onset (ago): hour(s) Related Data Home Medications ?Medication ?Instructions ?Recorded ?Confirmed albuterol sulfate 90 mcg/actuation inhalation 06/07/25 aerosol inhaler alendronate 70 mg tablet mg PO 06/07/25 amiodarone 200 mg tablet mg 06/07/25 amitriptyline 25 mg tablet mg 06/07/25 apixaban 5 mg tablet (Eliquis) mg 06/07/25 atorvastatin 80 mg tablet mg 06/07/25 clopidogrel 75 mg tablet mg 06/07/25 fluticasone 250 mcg-salmeterol 50 inhalation 06/07/25 mcg/dose blistr powdr for inhalation (Advair Diskus) metoprolol succinate 100 mg mg PO 06/07/25 tablet,extended release 24 hr sacubitril 24 mg-valsartan 26 mg tab 06/07/25 tablet (Entresto) spironolactone 25 mg tablet mg 06/07/25 tamsulosin 0.4 mg capsule mg PO 06/07/25 testosterone cypionate 200 mg/mL mg 06/07/25 intramuscular oil Allergies Allergy/AdvReac Type Severity Reaction Status Date / Time sulfamethoxazole (From Allergy Hives Verified 06/07/25 12:37 Bactrim) trimethoprim (From Bactrim) Allergy Hives Verified 06/07/25 12:37 diltiazem (From Cardizem) AdvReac Intermediate Hypotension Verified 06/07/25 12:37 Opioid HPI Opioid Management Most Recent Pain and Opioid Data: Last Pain Scale 8 Today, 12:39 PFSH PFSH Social History Little interest or pleasure in doing things: not at all Feeling down, depressed, or hopeless: not at all Exam Narrative Exam Narrative: Exam: * General: Patient alert, in no acute distress. * Left Hand: * Tenderness and swelling over the 5th metacarpal region * Mild contusion overlying the lateral hand * No gross deformity * No rotational deformity with finger flexion * Full range of motion of fingers * Neurovascularly intact distally (sensation preserved, cap refill <2 sec) * No signs of bite germain or breaks in the skin * Wrist/Forearm: Non-tender, no swelling * Skin: No open wounds or lacerations Constitutional Vital Signs, click to edit/add: Last Vital Signs Temp 97.7 F 06/07/25 12:39 Pulse 102 H 06/07/25 12:39 Resp 16 06/07/25 12:39 BP 115/81 06/07/25 12:39 Pulse Ox 97 06/07/25 12:39 O2 Del Method Room Air 06/07/25 12:39 Course Vital Signs Vital signs: Vital Signs Temperature 97.7 F 06/07/25 12:39 Pulse Rate 102 H 06/07/25 12:39 Respiratory Rate 16 06/07/25 12:39 Blood Pressure 115/81 06/07/25 12:39 Pulse Oximetry 97 06/07/25 12:39 Oxygen Delivery Method Room Air 06/07/25 12:39 Temperature 97.7 F 06/07/25 12:39 Pulse Rate 102 H 06/07/25 12:39 Respiratory Rate 16 06/07/25 12:39 Blood Pressure 115/81 06/07/25 12:39 Pulse Oximetry 97 06/07/25 12:39 Oxygen Delivery Method Room Air 06/07/25 12:39 MDM - Extremity Injury (Upper) MDM Narrative Medical decision making narrative: MDM: 54-year-old male with isolated left lateral hand pain after punching a wall. Exam shows tenderness and swelling over 5th metacarpal, neurovascularly intact, no gross deformity, and negative x-ray. Presentation is most consistent with a hand contusion or soft tissue injury. No evidence of fracture, dislocation, or neurovascular compromise. No signs of compartment syndrome. Will treat conservatively with ice, rest, and compression wrap for comfort. Patient advised on elevation and OTC analgesics as needed. Strict return precautions given for worsening pain, swelling, numbness, weakness, or inability to move fingers. Differential Diagnosis: * Hand contusion (most likely) * Occult fracture of 5th metacarpal (boxer?s fracture ? unlikely given negative x-ray and no deformity) * Soft tissue strain/sprain * Ligamentous injury (less likely, stable exam) * Compartment syndrome (unlikely ? no severe pain with passive stretch, compartments soft) Medical Records Attestation: I reviewed the patient's medical records. Imaging Data xr: Attestation: I have reviewed the pertinent imaging results. Radiologist's impression: ITS Impressions Hand X-Ray 06/07/25 12:51 IMPRESSION: No acute displaced fracture. Soft tissue swelling is noted over the dorsum of the metacarpals and metacarpophalangeal joints. Impression dictated by: Elvis Culp M.D. 06/07/2025 1:44 PM Dictation Location: [place] Electronically authenticated by: [id number] Y Date: 06/07/2025 13:44 Discharge Plan Discharge Chief Complaint: Extremity Injury, Upper Clinical Impression: Sprain and strain of left hand Patient Disposition: Home, Self-Care Time of Disposition Decision: 14:01 Condition: Good Prescriptions / Home Meds: No Action fluticasone propion-salmeterol [Advair Diskus] 250-50 mcg/dose blister with device INHALATION atorvastatin 80 mg tablet amiodarone 200 mg tablet alendronate 70 mg tablet PO metoprolol succinate 100 mg tablet extended release 24 hr PO clopidogrel 75 mg tablet spironolactone 25 mg tablet amitriptyline 25 mg tablet tamsulosin 0.4 mg capsule PO testosterone cypionate 200 mg/mL oil albuterol sulfate 90 mcg/actuation HFA aerosol inhaler INHALATION Eliquis 5 mg tablet sacubitril-valsartan [Entresto] 24-26 mg tablet Print Language: Amharic Instructions: Sprain (ED), How to Use an Elastic Bandage (ED), Cold Compress or Soak (ED) Additional Instructions: After Visit Summary ? Left Hand Injury Diagnosis: You have a hand contusion (bruise) after hitting your hand on a wall. Your x- ray did not show a fracture or broken bone. What We Did Today: * Examined your hand * X-ray was normal (no fracture) * Wrapped your hand for support Home Care Instructions: * Rest: Avoid using the injured hand for heavy activity until pain improves. * Ice: Apply ice packs for 15?20 minutes at a time, 3?4 times per day for the next 48 hours. Always keep a cloth between ice and skin. * Compression: Use the LETA wrap for comfort and support, not too tight. Remove at night. * Elevation: Keep your hand elevated on pillows when sitting or lying down to help reduce swelling. * Pain Control: Take acetaminophen (Tylenol) or ibuprofen (Advil/Motrin) as needed, unless your doctor told you not to. When to Return to the ER or Call Your Doctor: * Severe or worsening pain or swelling * Numbness, tingling, or inability to move your fingers * Fingers turn pale, cold, or blue * New bruising spreading up the hand or forearm * Any open wounds, drainage, or signs of infection Follow-Up: If pain and swelling are not improving within 5?7 days, follow up with your primary care provider or an orthopedic doctor for a re-check. Referrals: Margie Rodriguez NP [Primary Care Provider] - 1 week Discharge Date/Time: 06/07/25 14:15
== END 2025-06-07 14:15 | disposition home or self-care (01) ==
PROVIDERS: Emergency Provider Emergency Medicine; PCP Nurse Practitioner Family
DX: S63.92XA Sprain of unspecified part of left wrist and hand, initial encounter (principal); S66.912A Strain of unspecified muscle, fascia and tendon at wrist and hand level, left hand, initial encounter; W22.01XA Walked into wall, initial encounter
CPT/HCPCS: 73130; 99283

== ENCOUNTER 2025-08-04 08:26 | Outpatient (OUT) | payer OTHER, MEDICAID, SELFPAY ==
--- OUTSIDE RECORDS SUMMARY | 2025-08-04 08:33 | XMS_ITS | CCD ---
Author Organization [facility] Care Team Providers Care Instrument Operator Name Role Phone Kathy NOEL Primary Care [...] CARCAMO Consulting Unavailable ANA, CAMACHO Admitting Unavailable ANALEONELOE Attending Unavailable MISC, DR CARCAMO Primary Care Unavailable MISC, DR CARCAMO Primary Care Unavailable HOY ., DR CHARLES Consulting Unavailable NADERER, DR JOSEPH Rae Admitting Unavailable NADERER, DR JOSEPH Rae Attending Unavailable DEVI ., DR ANDREW Rapp Consulting Unavailable RIMA, DR GERARDO Almanza Consulting Unavailable Kody Maciel Consulting Unavailable BERKLEY, DR JOSEPH Rae Consulting Unavailable RYDER ., SHERITA SANCHEZ Consulting Unavailruiz ARMENDARIZ .ELIDA Consulting Unavailable YEYO, [...] Care Provider UnavailKathy Adams Primary Care Provider No Pcp, No Pcp Primary Care Provider UnavailNUNU Sun Admitting Unavailable NUNU PARK Attending Unavailable NUNU PARK Attending Unavailable NUNU PARK Attending Unavailable Maxime Hull MD Primary Care Provider Varsha Peralta Attending Unavailable Maxime Hull Referring Unavailable Varsha Peralta Attending Unavailable Varsha Peralta Attending Unavailable Maxime Hull Admitting Unavailable Maxime Hull Attending Unavailable Maxime Hull Admitting Unavailable Maxime Hull Attending Unavailable Varsha Peralta Admitting Unavailable Varsha Peralta Attending Unavailable Edward URBAN Attending Unavailable Maxime Hull Referring Unavailable Maxime Hull Attending Unavailable Maxime Hull Attending Unavailable Maxime Hull Attending Unavailable SERINA ROTH Primary Care Physician Varsha Peralta Attending Unavailable ETELVINA ROTH Admitting Unavailabl ETELVINA Cox Attending Unavailabl Ahsan Khoury. Attending Unavailable ETELVINA ROTH Attending UnavailVarsha Luo Admitting Unavailable Varsha Peralta Attending Unavailable Varsha Peralta Referring Unavailable Varsha Peralta Attending Unavailable Varsha Peralta Attending Unavailable Varsha Peralta Attending Unavailable ETELVINA ROTH Attending UnavailVarsha Luo Attending Unavailable Sydney Jasso Attending Unavailable Sydney aJsso Attending Unavailable Varsha Peralta Attending Varsha Cuello Attending Unavailable Allergies Allergy ClassificationReported Allergen(s)Allergy TypeDate of OnsetReaction(s) Facility (20 sources)busPIRone; 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: [buspirone]Drug Emavchq92-08-0974Nromub, Nausea [facility] (20 sources)gabapentin; 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: [gabapentin]Drug Tiiojnm57-72-5892Enztui, Nausea [facility] (20 sources)varenicline; 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: [varenicline]Drug Gbyioer92-50-6622 Palpitations, Nausea, Nausea [facility] (20 sources)venlafaxine; 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: [venlafaxine]Drug Zoscvbi43-09-1096 Eruption of skin (disorder), [facility] [place] (1 source)busPIRoneDrug AllergyThe [facility] (1 source)oneseed juniper pollen extractDrug AllergyThe [facility] (1 source)Sulfamethoxazole / TrimethoprimDrug Mlwkzqi43-15-0493O[facility] (1 source)vareniclineDrug AllergyThe [facility] (18 sources)dilTIAZemDrug Xejohzt59-30-6622Bhvhiclem, [facility] (18 sources)Sulfamethoxazole; 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: [SULFAMETHOXAZOLE]Drug Allergy 26-71-4692[facility] (19 sources)Sulfamethoxazole / TrimethoprimDrug Xxcsxby48-60-0484Saibivt [facility] (20 sources)Trimethoprim; 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: [TRIMETHOPRIM]Drug Akzyrgv11-77-9120 [facility] (3 sources)dilTIAZem; 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: [DILTIAZEM]Drug Nmpsgrp67-69-9876Itkbviopa, [facility] (2 sources)SulfamethoxazolePropensity to adverse -[id number] Medications Current Medications MedicationDrug Class(es)DatesSig (Normalized)Sig (Original)acetaminophen 500 mg oral tablet (18 sources)Start: 93-95-4845ahqw 1 tablet by mouth every six hours as needed for painacetaminophen (TYLENOL EXTRA STRENGTH) 500 mg tablet Take 1 tablet (500 mg total) by mouth every 6 (six) hours as needed for pain. 30 tablet 12/03/2023 ActiveStart: 86-94-2072uzra 1 tablet by mouth every six hours as needed for pain acetaminophen (TYLENOL EXTRA STRENGTH) 500 mg tablet Take 1 tablet (500 mg total) by mouth every 6 (six) hours as needed for pain. 30 tablet 0 10/27/2023 ActiveStart: 10-21-2023 End: 37-33-5850kwxq 1 tablet by mouth every four hours as needed for pain and headache and feveracetaminophen (TYLENOL) tablet 650 mgalendronic acid 70 mg oral tablet (20 sources)BisphosphonateStart: 07-92-2535eyzvqxcjfix 70 mg Tab PLEASE SEE ATTACHED FOR DETAILED DIRECTIONS Start Date: 10/22/24 Status: Ordered Medication Dispense Status: Completed Total Allowed Fills: 1 Fills Dispensed: 0Start: 09-28-2024 End: 78-91-8137ofclnlukhpu 70 mg Tab PLEASE SEE ATTACHED FOR DETAILED DIRECTIONS Start Date: 10/22/24 Status: Ordered Repeat number: 1Start: 73-40-4886Cgqwnoo 70 mg Tab 70 mg = 1 tab(s), Oral, q7day, # 12 tab(s), Refills(s) 3 Start Date: 01/26/21 Status: Orderedamitriptyline hydrochloride 25 mg oral tablet (20 sources)Tricyclic AntidepressantStart: 07-20-2024 End: 61-27-6630nicqnbbfjcvot 25 mg Tab 25 mg = 1 tab(s), Refills(s) 0 Start Date: 01/06/25 Status: Ordered Medication Dispense Status: Completed Total Allowed Fills: 1 Fills Dispensed: 0Start: 62-34-3139wysh 1 tablet by mouth once daily at bedtimeamitriptyline 50 mg Tab 50 mg = 1 tab(s), Oral, Once a day (at bedtime), # 90 tab(s), Refills(s) 0 Start Date: 01/26/21 Status: Orderedapixaban 5 mg oral tablet (20 sources)Factor Xa InhibitorStart: 67-62-1774rixz 1 tablet by mouth twice dailyEliquis 5 mg oral tablet 5 mg = 1 tab(s), Oral, BID, # 180 tab(s), Refills(s) 1, [id number], cm, 03/25/25 14:40:00 EDT, Height/Length Dosing, 66.3, kg, 03/25/25 14:40:00 EDT, Weight Dosing Start Date: 03/25/25 Status: Ordered Medication Dispense Status: Completed Quantity: 180.0 Unit: tab(s) Total Allowed Fills: 2 Fills Dispensed: 0Start: 06-13-2022 End: 02-95-9296vuqu 1 tablet by mouth in the morning, then take 1 tablet by mouth at bedtimeapixaban (ELIQUIS) 5 mg tablet Take 1 tablet (5 mg total) by mouth in the morning and 1 tablet (5 mg total) before bedtime. 60 tablet 04/01/2024 Activeaspirin 81 mg chewable tablet (10 sources)Platelet Aggregation Inhibitor, Nonsteroidal Anti-inflammatory Drug Start: 81-04-4616bdyr 1 tablet by mouth once dailyaspirin 81 mg Chew Tab 81 mg = 1 tab(s), Oral, Daily, # 30 tab(s), Refills(s) 3, [id number], cm, 11/21/22 7:04:00 EST, Height/Length Dosing, 70.3, kg, 11/21/22 7:04:00 EST, Weight Dosing Start Date: 11/21/22 Status: OrderedStart: 52-18-9216jwli 1 tablet by mouth once dailyaspirin 81 mg Oral EC Tab 81 mg = 1 tab(s), Oral, Daily, # 90 tab(s), Refills(s) 0 Start Date: 08/24/20 Status: Orderedatorvastatin 80 mg oral tablet (20 sources)HMG-CoA Reductase InhibitorStart: 11-21-2022 End: 88-71-6224pgsg 1 tablet by mouth once dailyatorvastatin 80 mg Tab 80 mg = 1 tab(s), Oral, Daily, # 30 tab(s), Refills(s) 3, Pharmacy: [facility]/pharm[facility] #[id number], 157.5, cm, 05/03/23 10:55:00 EDT, Height/Length Dosing, 65, kg, 05/03/23 10:55:00 EDT, Weight Dosing Start Date: 05/03/23 Status: Ordered Medication Dispense Status: Completed Quantity: 30.0 Unit: tab(s) Total Allowed Fills: 4 Fills Dispensed: 0carBAMazepine 200 mg oral tablet (12 sources)Mood StabilizerStart: 23-32-9919slwh 1 tablet by mouth once daily carbamazepine 200 mg Tab 200 mg = 1 tab(s), Oral, Daily, Refills(s) 0 Start Date: 09/21/20 Status: Orderedclopidogrel 75 mg oral tablet (20 sources)P2Y12 Platelet InhibitorStart: 52-07-9195yoxr 1 tablet by mouth in the morningclopidogreL (PLAVIX) 75 mg tablet Take 1 tablet (75 mg total) by mouth in the morning. 90 tablet 2 07/03/2024 ActiveStart: 90-93-5171uhll 1 tablet by mouth in the morningclopidogreL (PLAVIX) 75 mg tablet Take 1 tablet (75 mg total) by mouth in the morning. 90 tablet 3 05/19/2024 ActiveStart: 11-21-2022 End: 66-36-4699jmln 1 tablet by mouth once dailyclopidogrel 75 mg Tab 75 mg = 1 tab(s), Oral, Daily, # 90 tab(s), Refills(s) 3, Pharmacy: [facility] #[id number], 157, cm, 11/21/22 7:04:00 EST, Height/Length Dosing, 70.3, kg, 11/21/22 7:04:00 EST, Weight Dosing Start Date: 11/21/22 Status: Ordered Medication Dispense Status: Completed Quantity: 90.0 Unit: tab(s) Total Allowed Fills: 4 Fills Dispensed: 0dilTIAZem hydrochloride 30 mg oral tablet (10 sources)Calcium Channel BlockerStart: 79-91-6398kyfa 1 tablet by mouth three times dailydiltiazem 30 mg Tab 30 mg = 1 tab(s), Oral, TID, Refills(s) 0 Start Date: 06/13/22 Status: Orderedempagliflozin 10 mg oral tablet (20 sources)Sodium-Glucose Cotransporter 2 InhibitorStart: 41-57-9818ubap 1 tablet by mouth once daily in the morningJardiance 10 mg oral tablet 10 mg = 1 tab(s), Oral, qAM, Refills(s) 0 Start Date: 07/20/24 Status: Ordered Medication Dispense Status: Completed Total Allowed Fills: 1 Fills Dispensed: 0fluticasone / salmeterol (5 sources)Corticosteroid, beta2-Adrenergic AgonistStart: 49-18-0946bwmy 1 puff(s) by inhalation twice dailyAdvair Diskus 250 mcg-50 mcg inhalation powder INHALE 1 PUFF TWICE A DAY RINSE AFTER USE 30 DAYS Start Date: 03/25/25 Status: Ordered Medication Dispense Status: Completed Total Allowed Fills: 1 Fills Dispensed: 0Start: 91-73-5168vknm 1 puff(s) by inhalation twice dailyAdvair Diskus 250 mcg-50 mcg inhalation powder INHALE 1 PUFF TWICE A DAY RINSE AFTER USE 30 DAYS Start Date: 03/25/25 Status: Ordered Repeat number: 1Incruse Ellipta 62.5 mcg inhalation powder (5 sources)Start: 86-72-2295vbwq 1 puff(s) by inhalation once dailyIncruse Ellipta 62.5 mcg inhalation powder INHALE 1 PUFF INTO THE LUNGS EVERY DAY FOR 30 DAYS StartDate: 03/25/25 Status: Ordered Medication Dispense Status: Completed Total Allowed Fills: 1 Fills Dispensed: 0Start: 58-80-0534ykbq 1 puff(s) by inhalation once dailyIncruse Ellipta 62.5 mcg inhalation powder INHALE 1 PUFF INTO THE LUNGS EVERY DAY FOR 30 DAYS StartDate: 03/25/25 Status: Ordered Repeat number: 1methylphenidate hydrochloride 10 mg oral tablet (12 sources)Central Nervous System StimulantStart: 11-69-3454pfrw 1 tablet by mouth twice dailyRitalin 10 mg oral tablet 10 mg = 1 tab(s), Oral, BID, Refills(s) 0 Start Date: 08/24/20 Status: Igmqfqz02 hr metoprolol succinate 100 mg extended release oral tablet (20 sources)beta-Adrenergic BlockerStart: 81-82-4504xpyr 1 tablet by mouth every twenty-four hours in the morningmetoprolol succinate XL (TOPROL XL) 100 mg 24 hr tablet Take 1 tablet (100 mg total) by mouth in the morning. 90 tablet 3 01/13/2025 ActiveStart: 69-23-2840inzd 1 tablet by mouth once dailymetoprolol succinate 50 mg ER Tab 50 mg = 1 tab(s), Oral, Daily, Refills(s) 0 Start Date: 07/20/24 Status: Ordered Medication Dispense Status: Completed Total Allowed Fills: 1 Fills Dispensed: 0Start: 12-03-2023 End: 09-98-0270muxp 1 tablet by mouth every twenty-four hours in the morning metoprolol succinate XL (TOPROL XL) 50 mg 24 hr tablet Take 1 tablet (50 mg total) by mouth in the morning. 30 tablet 04/01/2024 01/13/2025 Discontinued Start: 17-44-4657wbwq 1 tablet by mouth every twenty-four hours in the morning metoprolol succinate XL (TOPROL XL) 50 mg 24 hr tablet Take 1 tablet (50 mg total) by mouth in the morning. 90 tablet 3 11/08/2023 ActiveStart: 10-21-2023 End: 09-37-0364uloc 1 tablet by mouth every twenty-four hours in the morning metoprolol succinate XL (TOPROL XL) 25 mg 24 hr tablet Take 1 tablet (25 mg total) by mouth in the morning. 30 tablet 1 10/23/2023 11/08/2023 Discontinued Start: 10-21-2023 End: 78-10-2408pguzjkqgpc tartrate (LOPRESSOR) tablet 50 mgStart: 10-20-2023 End: 91-30-1027sslchqqqqn (LOPRESSOR) injection 5 mgsacubitril 24 mg / valsartan 26 mg oral tablet (20 sources)Angiotensin 2 Receptor BlockerStart: 08-21-2213Fhggwejy 24 mg-26 mg oral tablet 1 tab(s), Oral, BID, 180 tab(s), Refill(s) 1, [facility]/pharmacy #[id number], 1 55, cm, 03/25/25 14:40:00 EDT, Height/Length Dosing, 66.3, kg, 03/25/25 14:40:00 EDT, Weight DosingStart Date: 03/25/25 Status: Ordered Medication Dispense Status: Completed Quantity: 180.0 Unit: tab(s) Total Allowed Fills: 2 Fills Dispensed: 0Start: 38-52-7880krwc 1 tablet by mouth twice dailyEntresto 24 mg-26 mg oral tablet 1 tab(s), Oral, BID, Refill(s) 0 Start Date: 07/20/24 Status: Ordered Repeat number: 1Start: 76-55-5589evsu 1 tablet by mouth in the morning sacubitriL-valsartan (ENTRESTO) 24-26 mg tablet Take 1 tablet by mouth in the morning and 1 tablet before bedtime. 60 tablet 11 04/23/2024 Activesimethicone 125 mg chewable tablet (6 sources)Start: 01-12-2024 End: 03-08-1078zqwe 1 tablet by mouth every six hours as neededsimethicone (MYLICON) 125 mg chewable tablet Chew 1 tablet (125 mg total) and swallow every 6 (six)hours as needed for flatulence. 30 tablet 01/12/2024 08/26/2024 Discontinuedspironolactone 25 mg oral tablet (20 sources)Aldosterone AntagonistStart: 04-23-2024 End: 31-32-0027kmxa 1 tablet by mouth once dailyspironolactone 25 mg Tab 25 mg = 1 tab(s), Oral, Daily, Refills(s) 0 Start Date: 07/20/24 Status: Ordered Medication Dispense Status: Completed Total Allowed Fills: 1 Fills Dispensed: 0 Symbicort 160/4.5 inhalation aerosol with adapter (13 sources)Start: 28-71-9829wguf 2 puff(s) by inhalation twice dailySymbicort 160/4.5 inhalation aerosol with adapter 2 puff(s), Inhalation, BID, 10.3 gm, Refill(s) 0,[id number], 155, cm, 11/23/24 14:48:00 EDT, Height/Length [...] recurrent; Prediabetes; Pain in left shoulder; Start: 96-28-9326niph 2 puff(s) by inhalation twice dailySymbicort 160/4.5 inhalation aerosol with adapter 2 puff(s), Inhalation, BID, 3 EA, Refill(s) 1, [facility]/pharmacy #[id number], 158, cm, 09/21/20 14:58:00 EST, Height/Length Dosing, 74.3, kg, 09/21/20 14:58:00 EST, Weight Dosing Start Date: 07/10/21 Status: Ordered tamsulosin hydrochloride 0.4 mg oral capsule (12 sources)alpha-Adrenergic BlockerStart: 16-71-1037jnjh 1 capsule by mouth once daily for dizzinesstamsulosin 0.4 mg Cap 0.4 mg = 1 cap(s), Oral, Daily, Monitor for lightheadedness or dizziness., # 30 cap(s), Refills(s) 11, Pharmacy: [facility]/pharmacy #[id number], 155, cm, 01/06/25 8:28:00 EDT, Height/LengthDosing, 71.2, kg, 01/06/25 8:28:00 EDT, Weight Dosing Start Date: 01/06/25 Status: Ordered Medication Dispense Status: Completed Quantity: 30.0 Unit: cap(s) Total Allowed Fills: 12 Fills Dispensed: 0testosterone cypionate 100 mg/ml injectable solution (2 sources)AndrogenStart: 88-86-1591uvujsl 100 mg by intramuscular injection every other weektestosterone cypionate 100 mg/mL intramuscular solution 100 mg = 1 mL, IntraMuscular, q2wk, # 10 mL, Refills(s) 3, Pharmacy: [facility]/pharmacy #[id number], 155, cm, 05/05/25 11:38:00 EDT, Height/Length Dosing, 71, kg, 05/05/25 11:38:00 EDT, Weight Dosing Start Date: 05/05/25 Status: Ordered Quantity: 10.0 Unit: mL Repeat number: 4 Indications: Testicular hypofunction;Testosterone Cypionate 200 mg/mL intramuscular solution (3 sources)Start: 72-85-9183mizwrk 100 mg by intramuscular injection every other weekTestosterone Cypionate 200 mg/mL intramuscular solution 100 mg = 0.5 mL, IntraMuscular, q2wk, # 10 mL, Refills(s) 3, [id number], cm, 05/05/25 11:38:00 EDT, Height/Length Dosing, 71, kg, 05/05/25 11:38:00 EDT, Weight Dosing Start Date: 06/15/25 Status: Ordered Medication Dispense Status: Completed Quantity: 10.0 Unit: mL Total Allowed Fills: 4 Fills Dispensed: 0 Start: 62-38-8776eelnjz 100 mg by intramuscular injection every other week Testosterone Cypionate 200 mg/mL intramuscular solution 100 mg = 0.5 mL, IntraMuscular, q2wk, # 10 mL, Refills(s) 3, [id number] 155, cm, 05/05/25 11:38:00 EDT, Height/Length Dosing, 71, kg, 05/05/25 11:38:00 EDT, Weight Dosing Start Date: 06/15/25 Status: Ordered Quantity: 10.0 Unit: mL Repeat number: 460 actuat tiotropium 0.0025 mg/actuat inhalation spray (12 sources)AnticholinergicStart: 53-30-7979gcqk 2 puff(s) by inhalation once dailySpiriva Respimat 60 ACT 2.5 mcg/inh inhalation aerosol = 2 puff(s), Inhalation, Daily, # 3 EA, Refills(s) 1, [id number] 158, cm, 09/21/20 14:58:00 EST, Height/Length Dosing, 74.3, kg, 09/21/20 14:58:00 EST, Weight Dosing Start Date: 07/07/21 Status: OrderedtraMADol hydrochloride 50 mg oral tablet (1 source)Opioid AgonistStart: 76-00-5725hswl 1 tablet by mouth every six hours traMADOL 50 mg Tab 50 mg = 1 tab(s), Oral, q6hr, 20 day supply, # 30 tab(s), Refills(s) 0, Pharmacy: [id number], 157.5, cm, 05/03/23 10:55:00 EDT, Height/Length Dosing, 65, kg, 05/03/23 10:55:00 EDT, Weight Dosing Start Date: 05/03/23 Status: Orderedzolpidem tartrate 10 mg oral tablet (12 sources)gamma-Aminobutyric Acid-ergic AgonistStart: 74-32-0907yyla 5 mg by mouth once daily at bedtime as needed for sleepAmbien 10 mg Tab 5 mg = 0.5 tab(s), Oral, Once a day (at bedtime), PRN for sleep, Refills(s) 0 Start Date: 08/24/20 Status: Ordered Completed/Discontinued Medications MedicationDrug Class(es)DatesSig (Normalized)Sig (Original)Albuterol (Eqv-ProAir HFA) 90 mcg/inh inhalation aerosol (6 sources)Start: 85-63-7934mbww 18 g by inhalation every six hoursAlbuterol (Eqv-ProAir HFA) 90 mcg/inh inhalation aerosol 180 mcg, 2 inh, Inhalation, q6hr, 18 gm, Refill(s) 0, [facility]/pharmacy #[id number], 155, cm, 11/23/24 14:48:00 EDT, Height/Length Dosing, 73.6, kg, 11/23/24 14:48:00 EDT, Weight Dosing Start Date: 11/23/24 Status: Ordered Medication Dispense Status: Completed Quantity: 18.0 Unit: g Total Allowed Fills: 1 Fills Dispensed: 0 Indications: Other male erect ile dysfunction; Tobacco use; Chronic obstructive pulmonary disease, unspecified; Paroxysmal atrialfibrillation; Pain in left shoulder; Unilateral inguinal hernia, without obstruction or gangrene, not specified as recurrent; Body mass index [BMI] 30.0-30.9, adult; Mixed hyperlipidemia; Obesity, uns pecified; Prediabetes; Presence of coronary angioplasty implant and graft;Start: 75-36-1069cuef 18 g by inhalation every six hoursAlbuterol (Eqv-ProAir HFA) 90 mcg/inh inhalation aerosol 180 mcg, 2 inh, Inhalation, q6hr, 18 gm, Refill(s) 0, [facility]/pharmacy #[id number], 155, cm, 11/23/24 14:48:00 EDT, Height/Length [...] Prediabetes; Presence of coronary angioplasty implant and graft;Start: 75-71-3597tdgt 18 g by inhalation every six hoursAlbuterol (Eqv-ProAir HFA) 90 mcg/inh inhalation aerosol 180 mcg, 2 inh, Inhalation, q6hr, 18 gm, Refill(s) 0, [facility]/pharmacy #[id number], 155, cm, 11/23/24 14:48:00 EDT, Height/Length [...] Prediabetes; Presence of coronary angioplasty implant and graft;albuterol HFA 90 mcg/inh MDI (12 sources)Start: 52-54-1193bvyu 1 dose by inhalation every six hoursalbuterol HFA 90 mcg/inh MDI 2 puff(s), Inhalation, q6hr for wheezing, 1 EA, Refill(s) 0, [facility]/pharmacy #[id number], 157.5, cm, 05/03/23 10:55:00 EDT, Height/Length Dosing, 65, kg, 05/03/23 10:55:00 EDT, Weight Dosing Start Date: 05/03/23 Status: Ordered Start: 63-95-1372crgc 1 dose by inhalation every six hoursalbuterol HFA 90 mcg/inh MDI 2 puff(s), Inhalation, q6hr for wheezing, 1 EA, Refill(s) 0, [id number], 158, cm, 08/24/20 14:09:00 EST, Height/Length Dosing, 74.6, kg, 08/24/20 14:09:00 EST, Weight Dosing Start Date: 08/24/20 Status: Ordered amiodarone hydrochloride 200 mg oral tablet (20 sources)AntiarrhythmicStart: 07-03-2024 End: 34-70-1741kkqm 1 tablet by mouth in the morningamiodarone (PACERONE) 200 mg tablet Take 1 tablet (200 mg total) by mouth in the morning. 90 tablet2 07/03/2024 01/13/2025 DiscontinuedStart: 05-00-1207vmda 1 tablet by mouth in the morningamiodarone (PACERONE) 200 mg tablet Take 1 tablet (200 mg total) by mouth in the morning. 90 tablet3 05/19/2024 ActiveStart: 01-17-2024 End: 03-77-6860advv 1 tablet by mouth in the morningamiodarone (PACERONE) 200 mg tablet Take 1 tablet (200 mg total) by mouth in the morning. 30 tablet 04/01/2024 05/14/2024 Discontinued (Reorder)take 2 tablets by mouth once daily amiodarone (Pacerone) 100 MG tablet Take 200 mg by mouth Daily Activebenzonatate 100 mg oral capsule (3 sources)Non-narcotic AntitussiveStart: 10-27-2023 End: 12-85-1183ansi 1 capsule by mouth every eight hoursbenzonatate (TESSALON PERLES) 100 mg capsule Take 1 capsule (100 mg total) by mouth every 8 (eight) hours. 21 capsule 0 10/27/2023 11/08/2023 Posaeqngdbel290 ml calcium gluconate 20 mg/ml injection (1 source)Start: 10-21-2023 End: 47-53-0356txuovlx gluconate IVPB 2000 mg/100 mL (20 mg/mL premix)calcium gluconate 3,000 mg in sodium chloride 0.9 % 100 mL IVPB (1 source)Start: 10-21-2023 End: 65-02-6507ibxpbxq gluconate 3,000 mg in sodium chloride 0.9 % 100 mL IVPB calcium gluconate 4,000 mg in sodium chloride 0.9 % 250 mL IVPB (1 source)Start: 10-21-2023 End: 63-63-4008poavdoy gluconate 4,000 mg in sodium chloride 0.9 % 250 mL IVPB2 ml digoxin 0.25 mg/ml injection (4 sources)Cardiac GlycosideStart: 10-21-2023 End: 25-67-9529fozyttc (LANOXIN) injection 250 mcgStart: 10-21-2023 End: 23-29-6597qqcauir (LANOXIN) injection 170 mcgStart: 12-62-9807mhjw 1 tablet by mouth once dailydigoxin 250 mcg (0.25 mg) Tab 250 mcg = 1 tab(s), Oral, Daily, Refills(s) 0 Start Date: 06/13/22 Status: Ordereddocusate sodium 50 mg / sennosides, fpc 8.6 mg oral tablet (1 source)Start: 10-21-2023 End: 32-71-1649egzt 1 tablet by mouth every twelve hours as needed for constipationsennosides-docusate sodium (SENOKOT-S) 8.6-50 mg 1 tabletglucagon (rdna) 1 mg injection (1 source)Antihypoglycemic AgentStart: 10-21-2023 End: 93-12-2652dncmjlnn HCL injection 1 mg150 ml glucose 50 mg/ml injection (3 sources)Start: 10-21-2023 End: 09-54-0901uztxsiry (GLUTOSE) 40 % gel 15 gStart: 10-21-2023 End: 76-96-9590lsrczpqa 50 % in water (D50W) 50% solution 25 mLStart: 10-21-2023 End: 58-19-6684prstsvmv 5 % (D5W) infusion1 ml heparin sodium, porcine 5000 unt/ml injection (1 source)Unfractionated Heparin, Anti-coagulantStart: 10-21-2023 End: 67-54-4896kgmbcsf (porcine) injection 5,000 Unitskit for Tc 99m-sestamibi injection 10 millicurie (1 source)Start: 10-22-2023 End: 46-94-8463pgw for Tc 99m-sestamibi injection 10 millicuriekit for Tc 99m- sestamibi injection 30 millicurie (1 source)Start: 10-22-2023 End: 39-96-0180fix for Tc 99m-sestamibi injection 30 hrzovuyeax65 ml magnesium sulfate 40 mg/ml injection (2 sources)Start: 10-21-2023 End: 99-81-4378iakfevklv sulfate IVPB 2000 mg/50 mL in iso-osmotic water (40 mg/mL premix)Start: 10-21-2023 End: 03-34-2950hmevylshq sulfate IVPB 4000 mg/100 mL in iso-osmotic water (40 mg/mL premix)metoprolol 1 mg/mL Inj (2 sources)Start: 11-21-2022 End: 02-53-0578dnaocz 5 mg intravenously oncemetoprolol 1 mg/mL Inj 5 mg = 5 mL, Injection, IV Push, Once, Stop date 11/21/22 13:27:00 EST, NOW,Start date 11/21/22 13:27:00 EST, 11/21/22 13:27:00 EST Start Date: 11/21/22 Stop Date: 11/21/22 Status: CompletedStart: 11-21-2022 End: 17-94-4763tgxdcu 5 mg intravenously oncemetoprolol 1 mg/mL Inj 5 mg = 5 mL, Injection, IV Push, Once, Stop date 11/21/22 10:55:00 EST, NOW,Start date 11/21/22 10:55:00 EST, 11/21/22 10:55:00 EST Start Date: 11/21/22 Stop Date: 11/21/22 Status: Completed2 ml ondansetron 2 mg/ml injection (1 source)Serotonin-3 Receptor AntagonistStart: 10-21-2023 End: 63-98-6169ehms 4 mg intravenously every eight hours as needed for nausea and vomitingondansetron (PF) (ZOFRAN) injection 4 mgpantoprazole 40 mg delayed release oral tablet (1 source)Proton Pump InhibitorStart: 10-21-2023 End: 94-77-9331gizgtrvtughc (PROTONIX) EC tablet 40 mgPotassium Chloride (1 source)Start: 10-21-2023 End: 68-98-8401jlhwdaqms chloride (KLOR-CON M 20) CR tablet 30-50 mEqregadenoson (LEXISCAN) injection 0.4 mg (1 source)Start: 10-22-2023 End: 59-11-1613xnnxlenrklo (LEXISCAN) injection 0.4 mg125 ml sodium chloride 9 mg/ml prefilled syringe (9 sources)Start: 10-20-2023 End: 65-76-9020ukemlu chloride 0.9 % infusionStart: 10-20-2023 End: 33-62-1240ttnbwi chloride 0.9 % flush 3 mLsodium phosphate 20 mmol in sodium chloride 0.9 % 250 mL IVPB (1 source)Start: 10-21-2023 End: 18-96-4527yhapks phosphate 20 mmol in sodium chloride 0.9 % 250 mL IVPB Problems Active Problems Problem ClassificationProblemDateDocumented DateEpisodic/ChronicAbdominal hernia (20 sources)Inguinal hernia; 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: [Unilateral inguinal hernia, without obstruction or gangrene, not specified as recurrent]Onset: 05-87-3236Nloqnmes Acute myocardial infarction (1 source)Non-ST elevation (NSTEMI) myocardial infarction; 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: [NON-ST ELEVATION MYOCARDIAL INFARCT]Onset: 03-23-8138HqcuiliXgflgpj-related disorders (20 sources)History of alcohol hncih23-35-0469PlmtmllYwnt and rectal conditions (4 sources)Anorectal disorder; 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: [Other specified diseases of anus and rectum]Onset: 38-67-0807ZiqmvfpwSjbrytb disorders (20 sources)Anxiety; 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: [Anxiety disorder, unspecified]Onset: 824925-20-6836HhjnwimCjcfkz (20 sources)Asthma; 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: [Unspecified asthma, uncomplicated]Onset: 388674-70-7631YksehiaEsiczxaj of urinary tract (17 sources)Kidney stone; 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: [Calculus of kidney]Onset: 05-05-2025 62-60-8825JfdfsbmkFdvnxgt dysrhythmias (20 sources)Paroxysmal atrial fibrillation; 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: [Paroxysmal atrial fibrillation]Onset: 05-13-2022 Resolved: 00-11-0530CdcqhcdXqxyybd obstructive pulmonary disease and bronchiectasis (20 sources)Panacinar emphysema; 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: [Panlobular emphysema]Onset: 30-95-9339YudncsaAkjrpqok atherosclerosis and other heart disease (19 sources)Unstable angina; 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: [Coronary arteriosclerosis]Onset: 888573-15-3293KeumcsoSgriwehi atherosclerosis and other heart disease (17 sources)Stent in anterior descending branch of left coronary artery 08-11-1513MnojeshwVdsjwsky mellitus without complication (20 sources)Prediabetes; 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: [Prediabetes]Onset: 32-67-6762Iduyjyjk Disorders of lipid metabolism (20 sources)Mixed hyperlipidemia; 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: [Hyperlipidemia, unspecified] Onset: 368165-94-7513BpehcjxSuqcnxhsjuyxmmzz hemorrhage (8 sources)Rectal hemorrhage; 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: [Melena]Onset: 359371-15-2553 EpisodicGenitourinary symptoms and ill-defined conditions (17 sources)Microscopic hematuria; 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: [Asymptomatic microscopic hematuria]Onset: 40-47-6355HnhxodxtAwzxfgvworg of prostate (19 sources)Benign prostatic hypertrophy with outflow obstruction; 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: [Benign prostatic hyperplasia with lower urinary tract symptoms]Onset: 14-25-9929KsaohjqCudecuitknle injury (20 sources)History of traumatic brain injury; 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: [Personal history of traumatic brain injury]Onset: 641371-15-2525XsepwranAwqmize and fatigue (20 sources)Fatigue; 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: [Other fatigue]Onset: 23-13-5050Nmswggno Nutritional deficiencies (20 sources)Decreased vitamin D21-30-6151FzlqjftGprhrzekvgoduf (20 sources)Arthritis; 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: [Unspecified osteoarthritis, unspecified site]Onset: 209094-26-1619UsanmyfBlgwzrl on above:neckOther aftercare (20 sources)Long-term current use of anticoagulant; 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: [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]Onset: 685381-99-6720TcvchdqrHnffx aftercare (1 source)longterm (current) use of anticoagulants; 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: [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]Onset: 87-51-8198EnedtdjeWopmh aftercare (2 sources)Long-term current use of drug therapy; 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: [longterm (current) use of antithrombotics/antiplatelets]Onset: 90-94-1160LfapwnzwEpozx diseases of kidney and ureters (1 source)Urinary tract obstruction; 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: [Other obstructive and reflux uropathy]Onset: 97-03-2327QdvsuqxcDqrba endocrine disorders (2 sources)Testicular hypofunction; 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: [Testicular hypofunction] Onset: 42-95-0167XmdrqneKqfet endocrine disorders (5 sources)Male enmbzftjajqy79-43-5792KrfijfdVocub eye disorders (4 sources)Anisocoria; 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]05-52-8983XzwfnsmHurbn gastrointestinal disorders (3 sources)Altered bowel function; 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: [Change in bowel habit]Onset: 15-00-2635EnjyvobfBqrtu gastrointestinal disorders (4 sources)Change in bowel habit; 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: [CHANGE IN BOWEL HABIT]Onset: 61-79-1895CwdtkeabUipze lower respiratory disease (13 sources)Chronic cough; 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: [Chronic cough]Onset: 01-11-2025 28-54-3006WknnopwxVzdmo male genital disorders (20 sources)Other male erectile dysfunction; 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: [Erectile dysfunction]Onset: 96-09-9782MelmegwLkvrc nervous system disorders (20 sources)Cataplexy and ifmfcxcerx28-47-1057HfbxouxIqmhc nervous system disorders (20 sources)Complex regional pain syndrome of lower fqer95-22-3343JnvssmlYdunx nervous system disorders (1 source)Narcolepsy with cataplexy; 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: [NARCOLEPSY WITH CATAPLEXY] Onset: 76-33-1068SvioyciStbsk nervous system disorders (5 sources)Complex regional pain syndrome I of right lower limb; 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: [COMPLEX RGN PAIN SYND I RT LOWLIMB]Onset: 80-65-4285KvvvaswPoydr nervous system disorders (4 sources)Complex regional pain syndrome type I; 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: [Complex regional pain syndrome I, unspecified]25-99-1060JfmyzldXsofk nervous system disorders (20 sources)Numbness of lower limb ; 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: [Anesthesia of skin]Onset: 059901-79-0761OnfhepxeSkutz nutritional; endocrine; and metabolic disorders (7 sources)Body mass index 30+ - byreyxy70-74-4135HtakwleWdgls nutritional; endocrine; and metabolic disorders (4 sources)Obesity caused by energy uixfcmcds87-66-5219UqycyxoHjtdk nutritional; endocrine; and metabolic disorders (1 source)Abnormal weight loss; 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: [Abnormal weight loss]Onset: 53-18-3831FgdukqjlKqsqs nutritional; endocrine; and metabolic disorders (20 sources)Overweight in adulthood with body mass index of 25 or more but less than 30; 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: [Body mass index (BMI) 27.0-27.9, adult]Onset: 05-14-2022 EpisodicOther nutritional; endocrine; and metabolic disorders (12 sources)Overweight; 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: [Overweight]Onset: EpisodicOther nutritional; endocrine; and metabolic disorders (11 sources)Weight hiya84-63-7562MfkrhcnkQbnkt screening for suspected conditions (not mental disorders or infectious disease) (20 sources)Prostate specific antigen abnormal ; 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: [Other specified abnormal findings of blood chemistry]Onset: 610165-92-0517YaphczpmTyxuv skin disorders (20 sources)Lesion of skin of mibb46-61-3239CufxhgldYvrj-; endo-; and myocarditis; cardiomyopathy (except that caused by tuberculosis or sexually transmitted disease) (1 source)Cardiomyopathy, unspecified; 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: [CARDIOMYOPATHY UNSPECIFIED]Onset: 79-19-2440ZialrkuObcusmmn codes; unclassified (20 sources)Insomnia co-occurrent and due to medical condition; 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: [Insomnia due to medical condition]Onset: 241612-32-4626CynkvpkYlbnrwap codes; unclassified (4 sources)Family history of cancer; 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: [Family history of malignant neoplasm of prostate]Onset: 32-54-0746IzcxdgniBcieheey codes; unclassified (20 sources)Family history of prostate ikyeet59-40-2195NdaltefqJfxforua codes; unclassified (5 sources)Tobacco user; 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: [Tobacco use]Onset: 65-95-9267Oszpurfr Residual codes; unclassified (6 sources)Memory impairment; 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: [Other amnesia]26-25-5750Argxukrj Residual codes; unclassified (8 sources)Reduced jloixu85-58-5984GdfeqdcrUmrnlkjzi and history of mental health and substance abuse codes (12 sources)Tobacco use and exposure - eeqcemh16-37-8678JhbxsoiZeinwzkhfra; intervertebral disc disorders; other back problems (20 sources)Degeneration of lumbar intervertebral disc; 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: [Lumbar spondylosis]78-89-5929CscbabvTtuvumvbtda; intervertebral disc disorders; other back problems (18 sources)Neck pain; 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: [Cervicalgia]Onset: 40-47-5444Brezfelx Substance-related disorders (20 sources)Nicotine dependence; 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: [Nicotine dependence, cigarettes, uncomplicated]Onset: 99-98-0462PegcflgYpmrifyvzpbh (2 sources)POISON METHAMPHETAMINE ACC INIT ENC; 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: [POISON METHAMPHETAMINE ACC INIT ENC]Onset: 29-16-8605Rshtctapufkw (1 source)CONTACT W/AND (SUSP) EXPOS COVID-19; 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: [CONTACT W/AND (SUSP) EXPOS COVID-19]Onset: 06-30-8866Dcknpmquvyjk (16 sources)Asymptomatic microscopic dguygnauu60-82-8175Ubmjyrtoaqyg (10 sources)Drug therapy eyeulkr71-10-4907Ehsnozvgqqyc (10 sources)Finding of sensation of vuntqik63-28-4934Wdebsynwybsn (10 sources)Long-term current use of drug -32-5949Xdzogqaxzsxw (2 sources)Post-op; 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: [Post-op]Onset: 41-39-0955Qvnqilaqyzph (8 sources)Pain of left shoulder axecal96-27-0877Sqvzu infection (20 sources)Condyloma acuminatum of the anogenital region; 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: [Anogenital (venereal) warts]Onset: 38-11-2767Fgwxbshq Past or Other Problems Problem ClassificationProblemDateDocumented DateEpisodic/ChronicAbdominal pain (16 sources)Right lower quadrant pain; 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: [Right lower quadrant pain] Onset: 64-37-7969AffhumkzQzevrfyzdc pneumonitis; food/vomitus (1 source)Pneumonitis due to inhalation of food and vomit; 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: [PNEUMONITIS D/T INHAL FOOD AND VOMIT]Onset: 37-63-1293XccsqbpwHjvhoco dysrhythmias (3 sources)Palpitations; 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: [PALPITATIONS]Onset: 29-17-1089Choizjlv Mood disorders (14 sources)Mood disordersOnset: 715045-72-4724Qbkvepyzacp chest pain (8 sources)Chest pain, unspecified; 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: [Chest pain]Onset: 11-19-2022 EpisodicOther aftercare (1 source)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; 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: [OTH [facility] CURRENT DRUG THERAPY]Onset: 60-80-2658EemfmdymZoheu circulatory disease (1 source)Hypotension, unspecified; 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: [HYPOTENSION UNSPECIFIED] Onset: 92-41-8399YbfloddbVdfmw liver diseases (14 sources)Enzyme level - finding; 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: [Transaminitis]Onset: 692078-57-4904YsdpohxpHqdjpiadr by psychotropic agents (1 source)Poisoning by benzodiazepines, accidental (unintentional), initial encounter; 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: [POISON BENZODIAZEPINES ACC INIT ENC]Onset: 07-23-2022 EpisodicSubstance-related disorders (1 source)Poisoning by heroin, accidental (unintentional), initial encounter; 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: [POISON HEROIN ACCIDENTAL INIT ENC]Onset: 41-80-0093Efkydxdi Unclassified (20 sources)Patient encounter rfisgr54-21-5694Atwuggejkioa (1 source)POISON METHAMPHETAMINE ACC INIT ENC; 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: [POISON METHAMPHETAMINE ACC INIT ENC]Onset: 07-12-2022 Results Test NameValueInterpretationReference RangeFacilityAmbulatory Visit Summaryon 67-70-1675Qtxplolnju Visit SummaryAmbulatory Visit Summary REGIS HORTA :1970 Visit Date:07/28/2025 Ambulatory Visit Instructions Your Diagnosis Hypogonadism male Your Care Team Attending Physician - Varsha Peralta MD Primary Care Physician - SERINA ROTH CNP This Is Your Medications List albuterol (Albuterol (Eqv-ProAir HFA) 90 mcg/inh inhalation aerosol) alendronate (alendronate 70 mg Tab) amitriptyline (amitriptyline 25 mg Tab) apixaban (Eliquis 5 mg oral tablet) atorvastatin (atorvastatin 80 mg Tab) clopidogrel (clopidogrel 75 mg Tab) empagliflozin (Jardiance 10 mg oral tablet) fluticasone-salmeterol (Advair Diskus 250 mcg-50 mcg inhalation powder) metoprolol (metoprolol succinate 50 mg ER Tab) sacubitril-valsartan (Entresto 24 mg-26 mg oral tablet) spironolactone (spironolactone 25 mg Tab) tamsulosin (tamsulosin 0.4 mg Cap) testosterone (Testosterone Cypionate 200 mg/mL intramuscular solution) testosterone (testosterone cypionate 100 mg/mL intramuscular solution) umeclidinium (Incruse Ellipta 62.5 mcg inhalation powder) Procedures Performed Cystoscopy (05/05/2025), Hernia (11/02/2023), PCI (percutaneous coronary intervention) of left anterior descending branch of coronary artery (11/21/2022), Colonoscopy (10/24/2022), Laser removal of genital warts (08/08/2016), dental extractions (03/16/2016), Asthma, Atrial fibrillation, Cardiac ablation for atrial fibrillation, Cardiac catheter, Cardiac catheterization, Cardiac catheterization, COPD - Chronic obstructive pulmonary disease, epi-dural blocks, Hyperlipidemia, Hypertension, Reconstruction of facial bones, Stented artery, Vasectomy, unilateral or bilateral (separate procedure), including postoperative semen examination(s). What to do next Scheduled Follow-Up Appointments Saturday 9:00 AM EST With: Where: [facility] [address] [id number]- Saturday 9:00 AM EST With: Where: [facility] [address] [address]- Saturday 11:15 AM EST With: Varsha Peralta MD Where: [facility] [address] [id number]- Saturday2025 2:00 PM EST With: Ahsan Banks DO Where: [facility] [address] [id number]- Medications What How Much When Why Instructions Unchanged albuterol (Albuterol (Eqv-ProAir HFA) 90 mcg/ inh inhalation aerosol) 2 Inhalation Inhalation Every 6 hours BMI 30.0-30.9,adult Obesity (BMI 30-39.9) Smoker Hyperlipemia, mixed Inguinal hernia Prediabetes Paroxysmal atrial fibrillation Presence of stent in LAD coronary artery Other male erectile dysfunction COPD without exacerbation Shoulder pain, left Unchanged alendronate (alendronate 70 mg Tab) PLEASE SEE ATTACHED FOR DETAILED DIRECTIONS Unchanged amitriptyline (amitriptyline 25 mg Tab) 1 Tablets Unchanged apixaban (Eliquis 5 mg oral tablet) 1 Tablets By Mouth 2 times a day Unchanged atorvastatin (atorvastatin 80 mg Tab) 1 Tablets By Mouth Every day Unchanged clopidogrel (clopidogrel 75 mg Tab) 1 Tablets By Mouth Every day Unchanged empagliflozin (Jardiance 10 mg oral tablet) 1 Tablets By Mouth Once a day (in the morning) Unchanged fluticasone-salmeterol (Advair Diskus 250 mcg-50 mcg inhalation powder) INHALE 1 PUFF TWICE A DAY RINSE AFTER USE 30 DAYS Unchanged metoprolol (metoprolol succinate 50 mg ER Tab) 1 Tablets By Mouth Every day Unchanged sacubitril-valsartan (Entresto 24 mg-26 mg oral tablet) 1 Tablets By Mouth 2 times a day Unchanged spironolactone (spironolactone 25 mg Tab) 1 Tablets By Mouth Every day Unchanged tamsulosin (tamsulosin 0.4 mg Cap) 1 Capsules By Mouth Every day Monitor for lightheadedness or dizziness. Unchanged testosterone (testosterone cypionate 100 mg/ mL intramuscular solution) 100 Unknown, Intramuscular, 3 Refill(s) Unchanged testosterone (Testosterone Cypionate 200 mg/ mL intramuscular solution) 0.5 Milliliter Intramuscular Every other week Unchanged umeclidinium (Incruse Ellipta 62.5 mcg inhalation powder) INHALE 1 PUFF INTO THE LUNGS EVERY DAY FOR 30 DAYS Medications and Immunizations Administered Given Depo-Testosterone 200 mg/mL intramuscular solution, 100 mg, IntraMuscular. For: Hypogonadism male Allergies BuSpar (Nausea) Chantix (Nausea, Heart palpitations) gabapentin (Nausea) venlafaxine (Rash) Problems Ongoing - Any problem that you are currently receiving treatment for. Anticoagulated Antiplatelet or antithrombotic long-term use Asymptomatic microscopic hematuria BMI 27.0-27.9,adult BPH with urinary obstruction Cervicalgia Chronic anticoagulation Complex regional pain syndrome of both lower extremities COPD without exacerbation De (more content not included)...[facility] Summaryon [id number] Visit SummaryAmbulatory Visit Summary REGIS HORTA :1970 Visit Date:07/19/2025 Ambulatory Visit Instructions Your Diagnosis Change in mental status Your Care Team Attending Physician - SERINA ROTH CNP Primary Care Physician - SERINA ROTH CNP This Is Your Medications List albuterol (Albuterol (Eqv-ProAir HFA) 90 mcg/inh inhalation aerosol) alendronate (alendronate 70 mg Tab) amitriptyline (amitriptyline 25 mg Tab) apixaban (Eliquis 5 mg oral tablet) atorvastatin (atorvastatin 80 mg Tab) clopidogrel (clopidogrel 75 mg Tab) empagliflozin (Jardiance 10 mg oral tablet) fluticasone-salmeterol (Advair Diskus 250 mcg-50 mcg inhalation powder) metoprolol (metoprolol succinate 50 mg ER Tab) sacubitril-valsartan (Entresto 24 mg-26 mg oral tablet) spironolactone (spironolactone 25 mg Tab) tamsulosin (tamsulosin 0.4 mg Cap) testosterone (Testosterone Cypionate 200 mg/mL intramuscular solution) umeclidinium (Incruse Ellipta 62.5 mcg inhalation powder) Procedures Performed Cystoscopy (05/05/2025), Hernia (11/02/2023), PCI (percutaneous coronary intervention) of left anterior descending branch of coronary artery (11/21/2022), Colonoscopy (10/24/2022), Laser removal of genital warts (08/08/2016), dental extractions (03/16/2016), Asthma, Atrial fibrillation, Cardiac ablation for atrial fibrillation, Cardiac catheter, Cardiac catheterization, Cardiac catheterization, COPD - Chronic obstructive pulmonary disease, epi-dural blocks, Hyperlipidemia, Hypertension, Reconstruction of facial bones, Stented artery, Vasectomy, unilateral or bilateral (separate procedure), including postoperative semen examination(s). Discharge Vitals Temperature (Temporal Artery) 36.5 ???C Heart Rate (Peripheral) 90 Respiratory Rate 18 Blood Pressure 140/86 Height 155 cm Height 61 in Weight 66.9 kg Weight 147.489 lb BMI 27.85 What to do next Scheduled Follow-Up Appointments Saturday 11:00 AM EST With: Where: [facility] [address] [address]- Saturday 9:00 AM EST With: Where: [facility] [address] [address]- Saturday 9:00 AM EST With: Where: [facility] [address] [address]- Saturday 9:00 AM EST With: Fabian LINDQUIST, Varsha Rogers Where: [facility] [address] [id number]- Saturday2025 2:00 PM EST With: Ahsan Banks DO Where: [facility] [address] [phone]- Medications What How Much When Why Instructions Unchanged albuterol (Albuterol (Eqv-ProAir HFA) 90 mcg/ inh inhalation aerosol) 2 Inhalation Inhalation Every 6 hours BMI 30.0-30.9,adult Obesity (BMI 30-39.9) Smoker Hyperlipemia, mixed Inguinal hernia Prediabetes Paroxysmal atrial fibrillation Presence of stent in LAD coronary artery Other male erectile dysfunction COPD without exacerbation Shoulder pain, left Unchanged alendronate (alendronate 70 mg Tab) PLEASE SEE ATTACHED FOR DETAILED DIRECTIONS Unchanged amitriptyline (amitriptyline 25 mg Tab) 1 Tablets Unchanged apixaban (Eliquis 5 mg oral tablet) 1 Tablets By Mouth 2 times a day Unchanged atorvastatin (atorvastatin 80 mg Tab) 1 Tablets By Mouth Every day Unchanged clopidogrel (clopidogrel 75 mg Tab) 1 Tablets By Mouth Every day Unchanged empagliflozin (Jardiance 10 mg oral tablet) 1 Tablets By Mouth Once a day (in the morning) Unchanged fluticasone-salmeterol (Advair Diskus 250 mcg-50 mcg inhalation powder) INHALE 1 PUFF TWICE A DAY RINSE AFTER USE 30 DAYS Unchanged metoprolol (metoprolol succinate 50 mg ER Tab) 1 Tablets By Mouth Every day Unchanged sacubitril-valsartan (Entresto 24 mg-26 mg oral tablet) 1 Tablets By Mouth 2 times a day Unchanged spironolactone (spironolactone 25 mg Tab) 1 Tablets By Mouth Every day Unchanged tamsulosin (tamsulosin 0.4 mg Cap) 1 Capsules By Mouth Every day Monitor for lightheadedness or dizziness. Unchanged testosterone (Testosterone Cypionate 200 mg/ mL intramuscular solution) 0.5 Milliliter Intramuscular Every other week Unchanged umeclidinium (Incruse Ellipta 62.5 mcg inhalation powder) INHALE 1 PUFF INTO THE LUNGS EVERY DAY FOR 30 DAYS Allergies BuSpar (Nausea) Chantix (Nausea, Heart palpitations) gabapentin (Nausea) venlafaxine (Rash) Problems Ongoing - Any problem that you are currently receiving treatment for. Anticoagulated Antiplatelet or antithrombotic long-term use Asymptomatic microscopic hematuria BMI 27.0-27.9,adult BPH with urinary obstruction Cervicalgia Chronic anticoagulation Complex regional pain (more content not included)...[facility] Medicine Office/Clinic Noteon [phone] [facility] NoteFaboston [facility]/Clinic Note Chief Complaint The patient presents with concerns about recent mental status changes, including visual hallucinations. HPI Staff Hearing and seeing things at night. Conversating with a male outside his window and 2 females, thatare not there. Confusion, anger is higher, struggles to stay task. This is an everyday basis History of Present Illness 55-year-old male presenting with altered mental status. He began seeing shadows two days ago, whichhas led to sleep disturbance, requiring a light on to sleep. His partner noted that on Saturday he was unable to focus or concentrate, and he was advised at that time to go to the emergency room. The patient's history is significant for a fall where he hit his head, a brain bleed a year and a half ago, and PTSD for which he receives counseling. He has an upcoming neurology appointment with Dr. Molina. The patient is completely out of his amitriptyline, which is prescribed by his neurologist. The patient reports a history of an enlarged bladder secondary to a hernia but denies any current urinary issues such as problems with urination. Review of Systems PHQ Score Initial Depression Screen Score: 0 SCORE - Psychiatric: Reports visual hallucinations described as seeing shadows and difficulty with focus and concentration. - Neurological: Denies problems with urination. - Genitourinary: Reports normal urination with no problems and complete emptying of the bladder. - Respiratory: Reports throat and nasal symptoms. - Sleep: Reports inability to sleep without a light on. Physical Exam Vitals & Measurements T: 36.5 ???C(Temporal Artery) HR: 90(Peripheral) RR: 18 BP: 140/86 HT: 61 in HT: 155 cm WT: 147.489 lb WT: 66.9 kg BMI: 27.85 General: alert, no acute distress Skin: warm, dry Head: no trauma, normocephalic Cardiovascular: regular rate and rhythm, normal peripheral perfusion Respiratory: Lungs CTA, respirations non labored Neurological: oriented x 4, LOC appropriate for agespeech normal Psychiatric: cooperative, affect appropriate for age, normal judgement, hallucinogenic psychiatric thoughts. Assessment/Plan 1. Change in mental status (R41.82: Altered mental status, unspecified) - The patient's symptoms of seeing things that are not there - It was determined that these symptoms are not related to his testosterone therapy. - A urinary tract infection was ruled out as a cause as the patient denies urinary problems. - Plan to place a referral to a psychiatrist for evaluation and management. - The patient was informed that the referral department will find a provider based on his insurance, and that obtaining an appointment may not be quick. - The patient was previously advised to go to the emergency room, with [facility] being a recommended facility as they can handle psychiatric issues. - Encouraged to F/U with neurology as scheduled Or[facility]: [facility] Ambulatory Referral Orders: empagliflozin, 10 mg = 1 tab(s), Oral, qAM, # 90 tab(s), Refills(s) 0, Pharmacy: [facility]/pharmacy #[id number], 155, cm, 07/19/25 13:43:00 EST, Height/Length Dosing, 66.9, kg, 07/19/25 13:43:00 EST, Weight Dosing Follow-up With When Contact Information Sharadha Darren Within 3 months [address] [place] [phone] [facility] (1) Additional Instructions: Diabetes Patient Education Delirium Problem List/Past Medical History Ongoing Anticoagulated Antiplatelet or antithrombotic long-term use Asymptomatic microscopic hematuria BMI 27.0-27.9,adult BPH with urinary obstruction Cervicalgia Chronic anticoagulation Complex regional pain syndrome of both lower extremities COPD without exacerbation Degenerative arthritis of lumbar spine Elevated PSA Family history of prostate cancer in father Fatigue Fissure in skin of foot Genital warts Gross hematuria History of alcohol abuse History of traumatic brain injury Hyperlipemia, mixed Hypogonadism male Incomplete bladder emptying Inguinal hernia Insomnia due to medical condition Kidney stones Low libido Low vitamin D level Lower extremity numbness 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 Other male erectile dysfunction Panlobular emphysema Paroxysmal atrial fibrillation Prediabetes Presence of stent in LAD coronary artery Shoulder pain, left Smoker Voiding dysfunction Historical Screen for colon cancer Procedure/Surgical History Cystoscopy (05/05/2025), Hernia (11/02/2023), PCI (percutaneous coronary intervention) of left anterior descending branch of coronary artery (11/21/2022), Colonoscopy (10/24/2022), Laser removal of genital warts (08/08/2016), dental extractions (03/16/2016), Asthma, Atrial fibrillation, Cardiac ablation for atrial fibrillation, Cardiac catheter, Cardiac catheterization, Cardiac catheterization, COPD - Chronic obstructive pulmonary disease, epi-dural blocks, Hyperlipidemia, Hypertension, Reconst(more content not included)...[facility] HospitalComment on above:Result Comment: Electronically Signed By: SERINA ROTH CNP\.jacky\Date and Time Signed: 07/19/25 14:32 ESTUrology Office/Clinic Noteon [id number] Office/Clinic NoteUrology Office/Clinic Note Chief Complaint cystoscopy and discuss TRT HPI Staff Pt is here to discuss TRT. 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 Tamsulosin qd IPSS score today is [...] or foreign bodies. Capacious bladder. 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 Level of Service:18859 [place] OFFICE/OUTPATIENT [facility] 30 MINUTES Reason for Visit and Comments: Consult [484] - Patient here for an eval/consult of his right reducible inguinal hernia. Patient reports discomfort and pain in the area.Normal [facility] Hospitalon [id number] Patient ID: Regis Horta is a 54 [...] the past 36 hour(s)). No follow-ups on file.[facility] HospitalGeneral Surgery Office/Clinic Noteon [id number] Surgery Office/Clinic NoteGeneral Surgery Office/Clinic Note Chief Complaint reevaluate hernia HPI Staff 54 year old male presents on consultation from Dr. Hull to reevaluate right inguinal hernia. Last evaluation completed 09/2022. Patient was to have colonoscopy completed then return to office for reevaluation of hernia. In the interim, patient had cardiac stenting 11/2022 and was unable to hold antico agulation therapy to proceed with surgery. CT abdomen/pelvis [...] inguinal hernia; abd/pelvic ct scan done in [place] 12/2023 with fat containing right inguinal hernia,also portion of bladder within hernia; discomfort prior [...] swallowing difficulties, no hearing loss, no ear infection(s),no nose bleeds. Cardiovascular: normal blood pressure, no [...] no anemia, no blood clots, no transfusions. Allergy/Immunologic: no swollen lymph nodes/glands, no IV drug [...] abuse and obesity; will refer to Sheila Sneed/[facility], where patient's Cardiologists are also available;call with problems/questions. Ordered: [facility] [place] Ambulatory Referral 2. Tobacco abuse (Z72.0: [...] would be happy to provide these. Ordered: [facility] External Ambulatory Referral Follow-up No qualifying data available Problem List/Past Medical History Ongoing Anticoagulated Antiplatelet or antithrombotic long-term use Asymptomatic microscopic hematuria BMI 31.0-31.9,adult BPH with urinary obstruction Cervicalgia Chronic anticoagulation Complex regional pain syndrome of both lower extremities Degenerative arthritis of lumbar spine Elevated PSA Family history o (more content not included)...[facility] Comment on above:Result Comment: Electronically Signed By: WILMAR LINDQUIST, Edward Nettles\.br\Date and Time Signed: 09/24/24 08:23 ESTAmbulatory Visit Summaryon [id number] Visit SummaryAmbulatory Visit Summary REGIS HORTA Kyra :1970 Visit Date:09/23/2024 Ambulatory Visit Instructions Your Care Team Attending Physician - Edward URBAN MD Primary Care Physician - Maxime Hull MD Referring Physician - Maxime Hull MD. This Is Your Medications List Contact prescribing physician if questions or concerns amiodarone (amiodarone 200 mg Tab) apixaban (Eliquis 5 mg oral tablet) atorvastatin (atorvastatin 80 mg Tab) clopidogrel (clopidogrel 75 mg Tab) empagliflozin (Jardiance 10 mg oral tablet) metoprolol (metoprolol succinate 50 mg ER Tab) sacubitril-valsartan (Entresto 24 mg-26 mg oral tablet) spironolactone (spironolactone 25 mg Tab) tamsulosin (tamsulosin 0.4 mg Cap) Procedures Performed PCI (percutaneous coronary intervention) of left anterior descending branch of coronary artery (11/21/2022), Colonoscopy (10/24/2022), Laser removal of genital warts (08/08/2016), dental extractions (03/16/2016), Asthma, Atrial fibrillation, Cardiac catheter, Cardiac catheterization, Cardiac cathete rization, COPD - Chronic obstructive pulmonary disease, epi-dural [...] EST With: Valerio LINDQUIST, Maxime Tolliver Where: [facility] [address] [address]- Saturday 10:45 AM EDT With: Fabian LINDQUIST, Varsha Rogers Where: [facility] [address] [place] [address]- Medications What How Much When Instructions Unchanged [...] prescribing physician if questions or concerns Unchanged sacubitril-valsartan (Entresto 24 mg-26 mg oral tablet) 1 [...] you for choosing us for your care. [facility] HospitalAmbulatory Visit Summaryon [id number] Visit SummaryAmbulatory Visit Summary OMA CHONGSHAIJOSE Rae :1970 Visit Date:07/20/2024 Ambulatory Visit Instructions Your [...] metoprolol (metoprolol succinate 50 mg ER Tab) sacubitril-valsartan (Entresto 24 mg-26 mg oral tablet) spironolactone [...] EST With: Valerio LINDQUIST, Maxime Tolliver Where: [place] [address]- Medications What How Much When Instructions Unchanged [...] 1 Tablets By Mouth Every day Unchanged sacubitril-valsartan (Entresto 24 mg-26 mg oral tablet) 1 [...] you for choosing us for your care. NormalElyria Memorial HospitalCB w/ Auto Diffon 07-20-2024 Basophils/100 WBC (Bld)0.8 %Normal0.0-2.0[facility] HospitalComment on above:Performed By: #### [id number] #### [facility] [address], [place] [address]Efqqaogzc/Leukocytes Auto (Bld) [Pure # fraction]0.1 E9/LNormal 0.0-0.2FBluffton HospitalComment on above:Performed By: #### [id number] #### [facility] [address] [place] [address]Eqwzzijfdkd (Bld) [#/Vol]0.1 E9/LNormal0.0-0.5FBluffton HospitalComment on above:Performed By: #### [id number] #### [facility] [address], [place] [address]Pjlhxbnriub/100 WBC (Bld)1.7 %Normal0.0-8.0[facility] HospitalComment on above:Performed By: #### [id number] #### [facility] [address], [place] [address]Ijdqdnbyqnc distribution width (RBC) [Ratio]13.6 %Normal 10.9-14.2FBluffton HospitalComment on above:Performed By: #### [id number] #### [facility] [address], [place] [address]Xkckjyyikn (Bld) [Volume fraction]44.0 %Lseiwm57.7-49.0[facility] HospitalComment on above:Performed By: #### [id number] #### [facility] [address], [place] [address]Gplizakgyd (Bld) [Mass/Vol]15.2 g/mQKgyjcc92.5-17.5FBluffton HospitalComment on above:Performed By: #### [id number] #### [facility] [address] [place] [address]Tpacncdkbfa (Bld) [#/Vol]2.1 E9/LNormal1.0-4.0[facility] HospitalComment on above:Performed By: #### [id number] #### [facility] [address] [place] [address]Wyiofhgejqc/100 WBC (Bld)24.2 %Jjjdoa57.0-50.0[facility] HospitalComment on above:Performed By: #### [id number] #### [facility] [address] [place] [address] 22[address]RYQ (RBC) [Entitic mass]31.7 fyQycwzv98.0-34.0[facility] HospitalComment on above:Performed By: #### [id number] #### [facility] [address] [place] [address]98[address]MBVC (RBC) [Mass/Vol]34.6 g/jBKxtsak69.4-36.0[facility] HospitalComment on above:Performed By: #### [id number] #### [facility] [address] [place] [address] 23995IXO (RBC) [Entitic vol]91.6 hLCvkmcn15.0-100.0[facility] HospitalComment on above:Performed By: #### [id number] #### [facility] [address] [place] [address]Cptqadihe (Bld) [#/Vol]0.6 E9/LNormal0.2-1.0[facility] HospitalComment on above:Performed By: #### [id number] #### [facility] [address] [place] [address]Skxmetlnvwf (Bld) [#/Vol]5.7 E9/LNormal2.0-7.5FBluffton HospitalComment on above:Performed By: #### [id number] #### [facility] [address] [place] [address]Yfjsmmvhdev/100 WBC (Bld)66.7 %Ecylck02.0-75.0[facility] HospitalComment on above:Performed By: #### [id number] #### [facility] [address] [place] [address]Vrowpunz mean volume (Bld) [Entitic vol]7.7 fLNormal6.4-10.8 [facility] HospitalComment on above:Performed By: #### [id number] #### [facility] [address] [place] [address] 138[address]Zbexfmprv (Bld) [#/Vol]371.0 E9/QDdhmgb893.0-500.0[facility] HospitalComment on above:Performed By: #### [id number] #### [facility] [address] [place] [address] 18851HQC (Bld) [#/Vol]4.8 E12/LNormal4.3-5.9[facility] HospitalComment on above:Performed By: #### [id number] #### [facility] [address] [place] [address]YVV corrected for nucl RBC Auto (Bld) [#/Vol]8.5 E9/LNormal 4.0-11.0[facility] HospitalComment on above:Performed By: #### [id number] #### [facility] [address] [place] [address]Bqwauc Medicine Office/Clinic Noteon 42-90-2045Lwjkbd Medicine Office/Clinic NoteFami Medicine Office/Clinic Note Chief Complaint Pain related to right inguinal hernia HPI Staff Regis is a 54 year old male presenting for acute visit Acute: hernia getting bigger and painful, right side groin confirmed but having alot of pain on theleft side and that feels more like he's strained it. Currently in a [facility] finishing out a sentence. [facility] History of Present [...] which indicated bladder involvement with herniation. Additionally, hehas reported a sensation of strain in the same area potentially indicating another hernia development. The patient mentions an upcoming heart consultation in August regarding potential ablation therapy. He indicates residing in a [facility] and the necessity for scheduled approvals [...] level of consciousness appropriate for age, CN II- XII intact, motor strength equal & normal bilaterally, speech normal Abdomen: Soft, Non-tender, Non-distended, + Bowel sounds Assessment/Plan 1. Panlobular emphysema (J43.1: Panlobular emphysema) Encourage smoking cessation. Evaluate the need for pulmonary intervention based on symptomatic progress over time. Ordered: Body Mass Index (BMI) documented 3008F CBC w/ Auto Diff Current tobacco smoker 1034F Depression Screening Negative 3352F [facility] [place] Ambulatory Referral [facility] [place] Ambulatory Referral HgbA1c Lipid Panel Most recent diastolic blood pressure <80 mm Hg 3078F PSA Screen, Total Systolic BP <130 mm Hg (Most Recent) 3074F 2. Paroxysmal atrial fibrillation (I48.0: Paroxysmal atrial fibrillation) Continue cardiology follow-up. Plan for August consultation for potential ablation therapy. Ordered: Body Mass Index (BMI) documented 3008F CBC w/ Auto Diff Current tobacco smoker 1034F Depression Screening Negative 3352F [facility] [place] Ambulatory Referral [facility] [place] Ambulatory Referral HgbA1c Lipid Panel Most recent diastolic blood pressure <80 mm Hg 3078F PSA Screen, Total Systolic BP <130 mm Hg (Most Recent) 3074F 3. Prediabetes (R73.03: Prediabetes) Labs ordered. Follow up in 3 months Ordered: Body Mass Index (BMI) documented 3008F CBC w/ Auto Diff Current tobacco smoker 1034F Depression Screening Negative 3352F [facility] [place] Ambulatory Referral [facility] Internal Ambulatory [facility]erral HgbA1c Lipid Panel Most [...] tobacco smoker 1034F Depression Screening Negative 3352F [facility] [place] Ambulatory Referral [facility] Internal Ambulatory Referral HgbA1c Lipid Panel Most [...] tobacco smoker 1034F Depression Screening Negative 3352F [facility] Internal Ambulatory Referral [facility] [place] Ambulatory Referral HgbA1c Lipid Panel Most [...] Diff Current tobacco sm (more content not included)...[facility] HospitalComment on above:Result Comment: Electronically Signed By: Valerio LINDQUIST, Maxime Zaragozabr\Date and Time Signed: 11/04/24 13:58 PZWOzxS8lgf 99-85-4213DwL3k (Bld) [Mass fraction]6.4 %High<=5.9[facility]. Finan CenterComment on above: Performed By: #### [id number] ####[facility] [address] Giovanny [place], [place] [address]Ynqasbmczk - Chemistry and Chemistry - challenge Ordered By: SYSTEM SYSTEM on 29-56-9898Dycrwcfqcxe [Mass/Vol]143 mg/gDXyjquj607 - 200 mg/dLRemisol ChemCholesterol in HDL [Mass/Vol]37 mg/dLInvalid Interpretation CodeRemisol ChemComment on above:Result Comment: '>= 60 LOW RISK' '<= 40 HIGH RISK'Cholesterol in LDL [Mass/Vol]79 mg/dLNormal<=129mg/dLRemisol ChemCholesterol in VLDL [Mass/Vol]60 mg/dLHigh7 - 40 mg/dLRemisol ChemProstate specific Ag [Mass/Vol]1.0 ng/mLNormal0.1 - 3.5 ng/mLRemisol ChemComment on above:Interpretive Data: The concentration of PSA determined by different manufacturers can vary due to differences in assay methods and reagent specificity. Values obtained from different assay methods cannot be used interchangeably. The methodology used for this result was chemiluminescence using [employer] Access Hybr[employer] PSA reagent.Triglyceride [Mass/Vol]299 mg/dLHigh<=149mg/dLRemisol ChemLaboratory - Hematology and Cell countsOrdered By: SYSTEM SYSTEM on 37-48-1674Gxtgbazfl/100 WBC (Bld)0.8 %Normal0.0 - 2.0 % Remisol HemeBasophils/Leukocytes Auto (Bld) [Pure # fraction]0.1 E9/LNormal0.0 - 0.2 E9/LRemisol HemeEosinophils (Bld) [#/Vol]0.1 E9/LNormal0.0 - 0.5 E9/LRemisol HemeEosinophils/100 WBC (Bld)1.7 %Normal0.0 - 8.0 %Remisol HemeErythrocyte distribution width (RBC) [Ratio]13.6 %Nqubly34.9 - 14.2 %Remisol HemeHematocrit (Bld) [Volume fraction]44.0 %Vctcnw29.7 - 49.0 %Remisol HemeHemoglobin (Bld) [Mass/Vol]15.2 g/cEKustyt48.5 - 17.5 gm/dLRemisol HemeLymphocytes (Bld) [#/Vol] 2.1 E9/LNormal1.0 - 4.0 E9/LRemisol HemeLymphocytes/100 WBC (Bld)24.2 %Normal 14.0 - 50.0 %Remisol HemeMCH (RBC) [Entitic mass]31.7 lpGolehk63.0 - 34.0 pg Remisol HemeMCHC (RBC) [Mass/Vol]34.6 g/pVRkqerc91.4 - 36.0 gm/dLRemisol HemeMCV (RBC) [Entitic vol]91.6 xZGofiav71.0 - 100.0 fLRemisol HemeMonocytes (Bld) [#/Vol]0.6 E9/LNormal0.2 - 1.0 E9/LRemisol HemeMonocytes/100 WBC (Bld)6.6 % Normal4.0 - 14.0 %Remisol HemeNeutrophils (Bld) [#/Vol]5.7 E9/LNormal2.0 - 7.5 E9/LRemisol HemeNeutrophils/100 WBC (Bld)66.7 %Vytrtr21.0 - 75.0 %Remisol Heme Platelet mean volume (Bld) [Entitic vol]7.7 fLNormal6.4 - 10.8 fLRemisol Heme Platelets (Bld) [#/Vol]371.0 E9/FJuabtq847.0 - 500.0 E9/LRemisol HemeRBC (Bld) [#/Vol]4.8 E12/LNormal4.3 - 5.9 E12/LRemisol HemeWBC corrected for nucl RBC Auto (Bld) [#/Vol]8.5 E9/LNormal4.0 - 11.0 E9/LRemisol HemeLaboratory - Hematology and Cell countsOrdered By: Ab Rodriguez on 35-99-7992QhZ0t (Bld) [Mass fraction] 6.4 %High<=5.9%[facility] ChemAutoSSLipid Panelon 03-76-5440Rwzxontmbqk [Mass/Vol]143 mg/gGGwnjgu363-465UdnhlwElyria Memorial HospitalComment on above:Performed By: #### [id number] #### [facility] [address], [place] [address]Epousynkhbz in HDL [Mass/Vol]37 mg/dLInvalid Interpretation CodeElyria Memorial HospitalComment on above:Result Comment: '>= 60 LOW RISK' '<= 40 HIGH RISK'Performed By: #### [id number] #### [facility] [address], [place] [address]Ymstspthvvn in LDL [Mass/Vol]79 mg/dLNormal<=129[facility] HospitalComment on above:Performed By: #### [id number] #### [facility] [address], [place] [address]Fxteqhxwocv in VLDL [Mass/Vol]60 mg/dLHigh7-40[facility] HospitalComment on above:Performed By: #### [id number] #### [facility] [address], [place] [address]Apfvxggosjfm [Mass/Vol]299 mg/dLHigh<=149[facility] HospitalComment on above:Performed By: #### [id number] #### [facility] [address], [place] [address]WSL Screen, Totalon 60-84-8483Fuggrxjn specific Ag [Mass/Vol] 1.0 ng/mLNormal0.1-3.5FBluffton HospitalComment on above:Result Comment: The concentration of PSA determined by different manufacturers can vary due to differences in assay methods and reagent specificity. Values obtained from different assay methods cannot be used interchangeably. The methodology used for this result was chemiluminescence using [employer] Access Hybritech PSA reagent.Performed By: #### [id number] #### [facility] [address], [place] [address]Oyxaewp Letter FTMCon 51-77-0392Tqvncgs Letter FTMCPatient Letter [facility] July 20, 2024 REGIS HORTA [facility] [address] : 1970 Jimbo did have an appoinment today @ 1:[address] Maxime Hull M.D. [address] [address] MbrzmpBlfeyjACMC Healthcare System [facility] with Diffon 15-71-5067Ody. Basophil0.10 k/uLNormal0.00-0.20[facility] Hospital ToledoComment on above:Performed By: #### HAYDE MEDELLIN TROPI #### [facility] [address] [place] [address] Assembly Line Robot Operator: Carlton Gonsales.Imm.Granulocyte0.04 k/uLNormal0.00-0.30[facility] Hospital ToledoComment on above:Performed By: #### HAYDE MEDELLIN, TROPI #### [facility] [address] [place] [address] [employer] Robot Operator: Carlton Gonsales.Neutrophil (Seg)5.90 k/uLNormal1.50-8.10 [facility] ToledoComment on above:Performed By: #### HAYDE MEDELLIN, TROPI #### [facility] [employer] [address] [place] [address] [employer] Robot Operator: Roderick Ricardo MDBasophils/100 WBC (Bld)1 %Normal0-2MercTahoe Forest HospitalComment on above:Performed By: #### HAYDE MEDELLIN, TROPI #### [facility] [address] [place] [address] [employer] Operator: Roderick Ricardo MDEosinophils (Bld) [#/Vol]0.09 10*3/uLNormal 0.00-0.44[facility] ToledoComment on above:Performed By: #### CP, CDP, TROPI #### [facility] [address] [place] [address] [employer] Operator: Roderick Ricardo MDEosinophils/100 WBC (Bld)1 %Normal1-4[facility] ToledoComment on above:Performed By: #### CP, CDP, TROPI #### [place] [address] [employer] Robot Operator: Roderick Ricardo MDErythrocyte distribution width (RBC) [Ratio]11.9 %Qmclxa78.8-14.4[facility] ToledoComment on above:Performed By: #### CP, CDP, TROPI #### [address] [address] [employer] Operator: Roderick Ricardo MDHematocrit (Bld) [Volume fraction]44.7 %Normal 40.7-50.3MSutter Solano Medical CenterComment on above:Performed By: #### LACIE, CDP, TROPI #### [place] [address] [employer] Robot Operator: Roderick Ricardo MDHemoglobin (Bld) [Mass/Vol]15.4 g/dLNormal 13.0-17.0[facility] ToledoComment on above:Performed By: #### CP, CDP, TROPI #### [address] [address] [employer] Robot Operator: Roderick Ricardo MDImmature granulocytes/100 WBC (Bld)0 %Normal0 [facility] ToledoComment on above:Performed By: #### CP, CDP, TROPI #### [address] [address] [employer] Robot Operator: Roderick Ricardo MDLymphocytes (Bld) [#/Vol]2.33 10*3/uLNormal 1.10-3.70[facility] ToledoComment on above:Performed By: #### CP, CDP, TROPI #### [address] [address] [employer] Robot Operator: Roderick Ricardo MDLymphocytes/100 WBC (Bld)24 %Zgmrnz90-51UqyfrRegency Hospital ToledoComment on above:Performed By: #### CP, CDP, TROPI #### [address] [address] [employer] Robot Operator: TIFFANIE GonsalesCH (RBC) [Entitic mass]31.4 qpTzolwo33.2-33.5 [facility] ToledoComment on above:Performed By: #### CP, CDP, TROPI #### [address] [address] [employer] Robot Operator: TIFFANIE GonsalesCHC (RBC) [Mass/Vol]34.5 g/wBTodwok24.4-34.8 [facility] ToledoComment on above:Performed By: #### CP, CDP, TROPI #### [place] [address] Assembly Line Robot Operator: TIFFANIE GonsalesCV (RBC) [Entitic vol]91.0 gOXmipnp40.6-102.9 [facility] ToledoComment on above:Performed By: #### CP, CDP, TROPI #### [place] [address] [employer] Line Robot Operator: Roderick Ricardo MDMonocytes (Bld) [#/Vol]1.09 10*3/uLNormal 0.10-1.20[facility] ToledoComment on above:Performed By: #### CP, CDP, TROPI #### [address] [address] [employer] Robot Operator: TIFFANIE Gonsalesonocytes/100 WBC (Bld)11 %Normal3-12[facility] ToledoComment on above:Performed By: #### CP, CDP, TROPI #### [facility] [address] [place] [address] [employer] Robot Operator: Paul Gonsalesophil (Seg)63 %Ufghlg31-03PnrpfRegency Hospital ToledoComment on above:Performed By: #### CP, CDP, TROPI #### [facility] [address] [place] [address] [employer] Robot Operator: Roderick Ricardo MDNRNEWTON Automated0.0 per 100 WBCNormal0.0[facility] ToledoComment on above:Performed By: #### CP, CDP, TROPI #### [facility] [address] [place] [address] [employer] Robot Operator: Josefina Gonsales mean volume (Bld) [Entitic vol]9.6 fL Normal8.1-13.5[facility] ToledoComment on above:Performed By: #### CP, CDP, TROPI #### [facility] Laboratories [address] [place] [address] Assembly Line Robot Operator: Chad Gonsalestemike (Bld) [#/Vol]385 10*3/mEWejaxs205-023 [facility] ToledoComment on above:Performed By: #### CP, CDP, TROPI #### [facility] [address] [place] [address] [employer] Line Robot Operator: HARVEY GonsalesBC (Bld) [#/Vol]4.91 10*6/uLNormal4.21-5.77 [facility] ToledoComment on above:Performed By: #### CP, CDP, TROPI #### [facility] [address] [place] [address] [employer] Robot Operator: EMANUEL Gonsales (Bld) [#/Vol]9.6 10*3/uLNormal3.5-11.3Mkettering health main campusy Kern Medical CenterComment on above:Performed By: #### LACIE CDP, TROPI #### [facility] [address] [place] [address] Assembly Line Robot Operator: Roderick Ricardo MDComp Metabolic Profon 96-49-1097Qjjlvip [Mass/Vol]4.7 g/dLNormal3.5-5.2[facility] Kern Medical CenterComment on above: Performed By: #### CP, CDP, TROPI #### [facility] [address] [place] [address] Assembly Line Robot Operator: Roderick Ricardo MDAlbumin/Glob Ratio2.0Vggksz4.0-2.5[facility] ToledoComment on above:Performed By: #### LACIE CDP, TROPI #### [facility] [address] [place] [address] Assembly Line Robot Operator: Roderick Ricardo MDAlkaline Phos83 U/HZutdru87-661XeadiRegency Hospital ToledoComment on above:Performed By: #### HAYDE MEDELLIN, TROPI #### [facility] [address] [place] [address]395 Assembly Line Robot Operator: Roderick Ricardo MDALT [Catalytic activity/Vol]10 U/DVszigs71-84 [facility] ToledoComment on above:Performed By: #### LACIE, CDP, TROPI #### [facility] [address] [place] [address]357 Assembly Line Robot Operator: Roderick Ricardo MDAnion gap [Moles/Vol]14 mmol/LNormal9-16[facility] ToledoComment on above:Performed By: #### CP, CDP, TROPI #### [facility] [address] [place] [address] Assembly Line Robot Operator: Roderick Ricardo MDAST [Catalytic activity/Vol]16 U/QUvryox78-78 [facility] ToledoComment on above:Performed By: #### CP, CDP, TROPI #### [facility] [address] [place] [address]95 Assembly Line Robot Operator: Roderick Ricardo MDBilirubin [Mass/Vol]0.2 mg/dLNormal0.00-1.20 [facility] ToledoComment on above:Performed By: #### CP, CDP, TROPI #### [facility] [address] [place] [address] Assembly Line Robot Operator: Roderick Ricardo MDCalcium [Mass/Vol]9.4 mg/dLNormal8.6-10.4[facility] ToledoComment on above:Performed By: #### CP, CDP, TROPI #### [place] [address] Assembly Line Robot Operator: RYLIE Gonsaleshloride [Moles/Vol]107 mmol/VZoikpz64-728DmieoRegency Hospital ToledoComment on above:Performed By: #### CP, CDP, TROPI #### [address] [address] Assembly Line Robot Operator: Roderick Ricardo MDCO2 [Moles/Vol]21 mmol/ZKagzvl33-95WcumkRegency Hospital ToledoComment on above:Performed By: #### CP, CDP, TROPI #### [facility] [address] [place] [address] Assembly Line Robot Operator: RYLIE Gonsalesreatinine [Mass/Vol]0.8 mg/dLNormal0.70-1.20 [facility] ToledoComment on above:Performed By: #### CP, CDP, TROPI #### [facility] [address] [place] [address]60 Assembly Line Robot Operator: Roderick Ricardo MDGFR/1.73 sq M.predicted among non-blacks MDRD (S/P/Bld) [Vol rate/Area]mL/min/{1.73_m2}Normal>60[facility] Hospital ToledoComment on above:Result Comment: These results are not intended for [...] or following therapy that affects renal tubular secretion.Performed By: #### HAYDE MEDELLIN TROPI #### [facility] [address] [place] [address]84 Assembly Line Robot Operator: Roderick Ricardo MDGlucose [Mass/Vol]100 mg/wQGorc23-05MderuSutter Solano Medical CenterComment on above:Performed By: #### HAYDE MEDELLIN TROPI #### [facility] [address] [place] [address] Assembly Line Robot Operator: Roderick Ricardo MDPotassium [Moles/Vol]3.8 mmol/LNormal3.7-5.3 [facility] ToledoComment on above:Performed By: #### HAYDE MEDELLIN TROPI #### [facility] [address] [place] [address] Assembly Line Robot Operator: Roderick Ricardo MDProtein [Mass/Vol]7.4 g/dLNormal6.6-8.7[facility] Hospital ToledoComment on above:Performed By: #### HAYDE MEDELLIN TROPI #### [facility] [address] [place] [address]96 Assembly Line Robot Operator: Roderick Ricardo MDSodium [Moles/Vol]142 mmol/CTilrac300-063WeggjRegency Hospital ToledoComment on above:Performed By: #### HAYDE MEDELLIN, TROPI #### [facility] [address] [place] [address] Assembly Line Robot Operator: Roderick Ricardo MDUrea nitrogen [Mass/Vol]16 mg/dLNormal6-20[facility] Hospital ToledoComment on above:Performed By: #### CP, CDP, TROPI #### [facility] [address] [place] [address] Assembly Line Robot Operator: Dana Gonsales 02-02-2691Abinwjxp, High Sens<6Normal 0-22[facility] Hospital ToledoComment on above:Result Comment: High Sensitivity Troponin values cannot be compared with other Troponin methodologies.Performed By: #### TROPI #### [facility] [address] [place] [address] Assembly Line Robot Operator: Leobardo Gonsales, High Sens<7Lnxigx7-52JrucwRegency Hospital ToledoComment on above:Result Comment: High Sensitivity Troponin values cannot be compared with other Troponin methodologies.Performed By: #### CP CDP, TROPI #### [facility] [address] [place] [address] Assembly Line Robot Operator: Roderick Ricardo MDXR CHEST (2 VW)on 94-46-2570FZ CHEST (2 VW) EXAMINATION: TWO XRAY VIEWS [...] Oca MD Signed by: Florin Montes De Oac MD 04/02/24 Final resultNoNewark Hospital CenterED Note-Physicianon 01-20-2024 ED Note-[id number]#1.00TIFFMercy Health St. Elizabeth Boardman HospitalPatient Letter FTon 02-30-9685Iidjegv Letter [facility] [place] 28, 2023 REGIS HORTA [facility] [address] : 1970 Dear Mr. Horta, I am [...] Office Sincerely, Dr. Varsha Peralta [facility] [address] [place] [address]. [place] [address]CldrekOgpfjcACMC Healthcare System Glenbeigh auto differentialon 59-57-0866Tvdsfwirx (Bld) [#/Vol]0.1 10*3/uLCleveland Clinic Avon Hospital SystemBasophils/100 WBC (Bld)1.2 %[facility] HospitalEosinophils (Bld) [#/Vol]0.3 10*3/uL [facility] SystemEosinophils/100 WBC (Bld)2.7 %[facility] Erythrocyte distribution width (RBC) [Ratio]14.0 %11.5 - 15.0 %[facility] HospitalHematocrit (Bld) [Volume fraction]41.7 %39 - 49 %[facility] Hemoglobin (Bld) [Mass/Vol]14.6 g/dL13.0 - 17.0 g/dLCleveland Clinic Avon Hospital System Lymphocytes (Bld) [#/Vol]3.2 10*3/uLCleveland Clinic Avon Hospital SystemLymphocytes/100 WBC (Bld)34.3 %[facility] DaytonH (RBC) [Entitic mass]30.1 pg27 - 34 pg [facility] DaytonHC (RBC) [Mass/Vol]34.9 g/dL32 - 36 g/dLKettering Health DaytonV (RBC) [Entitic vol]86 fL80 - 100 [facility] Monocytes (Bld) [#/Vol]0.8 10*3/uLCleveland Clinic Avon Hospital SystemMonocytes/100 WBC (Bld) 9.2 %[facility] HospitalNeutrophils (Bld) [#/Vol]4.8 10*3/[facility] HospitalNeutrophils/100 WBC (Bld)52.6 %[facility] HospitalPlatelet mean volume (Bld) [Entitic vol]7.5 fL7 - 12 [facility] HospitalPlatelets (Bld) [#/Vol]349 10*3/[facility] SystemRBC (Bld) [#/Vol]4.83 10*6/[facility] Community HospitalWBC corrected for nucl RBC Auto (Bld) [#/Vol]9.2PBryn Mawr HospitalComprehensive metabolic panelon 84-02-1137Advdarh [Mass/Vol]4.2 g/dL3.2 - 5.3 g/dLBarberton Citizens HospitalALP [Catalytic activity/Vol]57 U/L39 - 130 U/[facility] HospitalALT No additional P-5'-P [Catalytic activity/Vol]38 U/L0 - 40 U/[facility] SystemAnion gap [Moles/Vol]10 mmol/L5 - 15 mmol/[facility] SystemAST [Catalytic activity/Vol]23 U/L0 - 41 U/[facility] SystemBilirubin [Mass/Vol]0.9 mg/dL0.3 - 1.2 mg/dLBarberton Citizens HospitalCalcium [Mass/Vol]9.2 mg/dL8.5 - 10.5 mg/dLBarberton Citizens HospitalChloride [Moles/Vol]103 mmol/L98 - 109 mmol/L [facility] HospitalCO2 [Moles/Vol]25 mmol/L22 - 32 mmol/[facility] Memorial HospitalCreatinine [Mass/Vol]0.94 mg/dL0.70 - 1.20 mg/dLBarberton Citizens Hospital Comment on above:METHOD TRACEABLE TO IDHI STANDARDeGFR (CKD-EPI)non-race dependent- Hospital Corporation of AmericaComment on above: Reported eGFR is based on the CKD-EPI 2020 equation that does not use a race coefficient. Glucose [Mass/Vol]95 mg/dL65 - 99 mg/dLProMedica Health SystemPotassium [Moles/Vol]4.0 mmol/L3.5 - 5.0 mmol/LProMedica Health SystemProtein [Mass/Vol] 6.8 g/dL6.0 - 8.0 g/dLCleveland Clinic Avon Hospital SystemSodium [Moles/Vol]138 mmol/L134 - 146 mmol/LProMedica Health SystemUrea nitrogen [Mass/Vol]22 mg/dL5 - 23 mg/dL [facility] SystemMagnesiumon 45-23-6982Havwspwiz [Mass/Vol]2.1 mg/dL1.8 - 2.6 mg/dLCleveland Clinic Avon Hospital SystemMagnesium [Mass/Vol]on 63-16-6197QrfFhbeab Health SystemNM Heart Perfusion W stress and W radionuclide IVOrdered By: Selena Sabillon on 29-69-1852Isgdacvn BP108/67mmSt. Peter's Health PartnersVeriTran Work Phone: End diastolic volume (mL)102 mLRockingham Memorial HospitalMyTime Work Phone: End systolic volume (mL)55 mLNationwide Children's HospitalVeriTran Work Phone: [phone]o Work Phone: [phone] Work Phone: Nuc Stress EF46 %[facility] CampusTeamBuy Work Phone: [phone] BP121/65mmHgRockingham Memorial HospitalMyTime Work Phone: Percent HR62 %[facility] CampusTeamBuy Work Phone: Recovery BP108/69mmHgNationwide Children's HospitalVeriTran Work Phone: Stress peak YI246uydIjxCpmsqk Health System Work Phone: Target OG771jlaAvoKgemwlAdviqo Work Phone: TID1.02Nationwide Children's HospitalVeriTran Work Phone: [facility] HospitalMyTime Work Phone: NM Heart Perfusion W stress and W radionuclide Cora 21-16-1010Uzmkty ECG: A Lexiscan protocol was performed. Baseline [...] Function Comments Calculated stress ejection fraction is 46%.SECTRAIECGRadiology Study observation (narrative)[facility] CampusTeamBuyCardiac echo study Procedureon 10-21-2023 Aortic root3.40 cmPPromedior SystemAV mean gradient3.00mmHgProGalion HospitalEnvis Health SystemAV peak gradient6.05mmHgNationwide Children's HospitalEnvis Health SystemAV peak rzt073.00 cm/sProMedica Health SystemAV valve area1.31 ef8UfiHkkiep Health SystemAV Velocity Ratio0.65ProGalion HospitalKuwo Science and Technology SystemAV VTI21.50 [facility] Medical CenterOctonius SystemE wave deceleration esxh499.00msecNationwide Children's HospitalKuwo Science and Technology SystemEcho EF Elrffmiqp59 % [facility] [employer] KqlfajUW28 %[facility] HospitalTrevi Therapeutics SystemEnergy loss index0.91 [facility] HospitalTrevi Therapeutics SystemEst. RA bedujctl5xtFhBgpFvvsuj Health QnrtgaPN41 %28 - 44 %[facility] HospitalTrevi Therapeutics SystemInferior Vena Cava Diameter1.17 [facility] Medical CenterOctonius SystemInterventricular Septum Diastolic Thickness by 2D8.820976970969670 cm [facility] HospitalIVC qetnatpx58.787396516434540 [facility] System IVS0.87 cm0.6 - 1.1 [facility] Medical CenterLA size3.90 [facility] CenterLA mmorse80.90 do4NudJcambgBarberton Citizens HospitalLA Volume Index24.9 mL/m2 [facility] HospitalLeft Ventricle Nklr929.455875327600195 OhioHealthLV Diastolic Emqxxj74.40 mLBarberton Citizens HospitalLV ESV A2C42.10 mL [facility] HospitalLV ESV A4C43.40 mLBarberton Citizens HospitalLV RWT 2D33.88 [facility] HospitalLV Systolic Oqzfqy63.10 mLBarberton Citizens HospitalLVIDd 4.90 cm4.00 - 5.55 [facility] SystemLVIDs3.64 cm2.37 - 3.59 [facility] Medical CenterLVOT diameter1.60 [facility] CenterLVOT peak vel0.81 m/s [facility] HospitalLVOT peak VTI14.00 [facility] Medical CenterLVOT stroke fgaomv36.15 mlBarberton Citizens HospitalMV Peak E Vel74.00 cm/[facility]acon[facility] HospitalMV pressure 1/2 time67.00 [facility] Health CenterMV TDI E' (medial)8.90 cm/[facility] HospitalMV valve area p 1/2 method3.28 sk7HslTuypldBarberton Citizens HospitalPW0.83 cm0.6 - 1.1 [facility] CenterRA area12.9 ko1EmcKzceksBarberton Citizens HospitalRV diastolic dimension (basal)29.5 German HospitalRVID d 3.0 [facility] CenterTAPSE1.48 [facility] QaewfuNNY53.40 cm/s [facility] HospitalValve area - Index0.8[facility] Citizens HospitalZLVIDD0.40 [facility] HospitalZLVIDS1.75[facility] HospitalLeft Ventricle: Systolic function is mildly to moderately [...] assess diastolic function due to atrial fibrillation/flutter. Lateral E' is 11.40cm/s. Medial E' is 8.90 cm/s. Right Ventricle [...] The left ventricular wall motion is globally hypokinetic.XCELERARockingham Memorial HospitalLikeability Mymichigan Medical Center AlpenaRadiology Study observation (narrative)[facility] LearndotDigoxin [Mass/Vol]on 86-40-4631Tnpibgjqqflwzs and review of laboratory resultsAbnormal Reading HospitalDigoxin levelon 34-57-1899Ijvxdxp [Mass/Vol]ng/mLLow0.8 - 2.0 ng/mLBarberton Citizens HospitalDrug Screen, Urineon 05-80-2199Oowkhieciurs Screen method >1000 ng/mL Ql (U)NegativeNegative^Negative [facility] SystemComment on above:AMPH/METH screening cut off = 1000 ng/mL Barbiturates Screen Ql (U)NegativeNegative^NegativeCleveland Clinic Avon Hospital System Comment on above:Barbiturates screening cut off value = 200 ng/mLBenzodiazepines Ql (U)NegativeNegative^NegativeCleveland Clinic Avon Hospital SystemComment on above: Benzodiazepines screening cut off value = 200 ng/mLCocaine Ql (U)Negative Negative^NegativeBarberton Citizens HospitalComment on above:Cocaine screening cut off value = 300 ng/mLMethadone Screen Ql (U)NegativeNegative^NegativeBarberton Citizens HospitalComment on above:Methadone screening cut off value = 300 ng/mL. Methylenedioxymethamphetamine Screen Ql (U)NegativeNegative^NegativeBarberton Citizens HospitalComment on above:Ecstasy screening cut off value = 500 ng/mL This report is intended for use in clinical monitoring or management of patients. Opiates Screen Ql (U)NegativeNegative^NegativeBarberton Citizens HospitalComment on above:Opiates screening cut off value = 300 ng/mL NOTE: This test is used for the detection of codeine, hydrocodone (>1000 ng/mL), morphine and hydromorphone (>900 ng/mL) in urine. oxyCODONE Ql (U)NegativeNegative^NegativeBarberton Citizens HospitalComment on above:Oxycodone screening cut off value = 300 ng/mL NOTE: This test is used for the detection of oxycodone and oxymorphone in urine. Phencyclidine Screen method >25 ng/mL Ql (U)NegativeNegative^NegativeBarberton Citizens HospitalComment on above:Phencyclidine screening cut off value = 25 ng/mL Tetrahydrocannabinol Screen method >50 ng/mL Ql (U)NegativeNegative^Negative [facility] HospitalComment on above:Cannabinoids/THC screening cut off value = 50 ng/mLBarberton Citizens HospitalThyroid profile includes TSH FT4on 10-21-2023 Free T4 [Mass/Vol]0.68 ng/dL0.61 - 1.60 ng/dLBarberton Citizens HospitalTSH Qn2.27 m[IU]/Prime Healthcare ServicesTroponin Ion 10-21-2023 Troponin I.cardiac [Mass/Vol]ng/mL0.00 - 0.04 ng/mLBar[facility]ton Citizens Hospital Troponin I.cardiac [Mass/Vol]ng/mL0.00 - 0.04 ng/mLBar[facility] Citizens Hospital Troponin I.cardiac [Mass/Vol]on 75-54-2311FksBcsqubBryn Mawr HospitalAPTTon 49-49-2445lRNM Coag (PPP) [Time]34 [facility] Comment on above:NEW REFERENCE RANGEBasic Metabolic Panelon 80-38-9855Eofmq gap [Moles/Vol]9 mmol/L5 - 15 mmol/[facility]de Memorial HospitalCalcium [Mass/Vol]9.3 mg/dL8.5 - 10.5 mg/dLBarberton Citizens HospitalChloride [Moles/Vol]108 mmol/L98 - 109 mmol/[facility] Memorial HospitalCO2 [Moles/Vol]21 mmol/LLow22 - 32 mmol/L [facility] HospitalCreatinine [Mass/Vol]0.94 mg/dL0.70 - 1.20 mg/dLBarberton Citizens HospitalComment on above:METHOD TRACEABLE TO IDHI STANDARDeGFR (CKD-EPI)non-race dependent- Hospital Corporation of AmericaComment on above: Reported eGFR is based on the CKD-EPI 2020 equation that does not use a race coefficient. Glucose [Mass/Vol]121 mg/sXXmpy23 - 99 mg/dLBarberton Citizens Hospital Interpretation and review of laboratory resultsAbnormalBarberton Citizens Hospital Potassium [Moles/Vol]3.7 mmol/L3.5 - 5.0 mmol/[facility] Hospitalodium [Moles/Vol]138 mmol/L134 - 146 mmol/[facility] Memorial HospitalUrea nitrogen [Mass/Vol]22 mg/dL5 - 23 mg/dLBarberton Citizens HospitalCBC auto differentialon 23-28-3591Wgziirlli (Bld) [#/Vol]0.1 10*3/uLBarberton Citizens HospitalBasophils/100 WBC (Bld)1.4 %[facility] HospitalEosinophils (Bld) [#/Vol]0.2 10*3/uL [facility] HospitalEosinophils/100 WBC (Bld)2.2 %[facility] Erythrocyte distribution width (RBC) [Ratio]14.4 %11.5 - 15.0 %[facility] HospitalHematocrit (Bld) [Volume fraction]45.4 %39 - 49 %[facility] Hemoglobin (Bld) [Mass/Vol]15.5 g/dL13.0 - 17.0 g/dLBar[facility]ton Citizens Hospital Interpretation and review of laboratory resultsAbnormAkron Children's Hospital Lymphocytes (Bld) [#/Vol]4.0 10*3/uLBuchanan General HospitalLymphocytes/100 WBC (Bld)39.5 %[facility] HospitalMCH (RBC) [Entitic mass]29.6 pg27 - 34 pg [facility] HospitalMCHC (RBC) [Mass/Vol]34.1 g/dL32 - 36 g/dLBarberton Citizens HospitalMCV (RBC) [Entitic vol]87 fL80 - 100 [facility] Monocytes (Bld) [#/Vol]0.9 10*3/[facility] HospitalMonocytes/100 WBC (Bld) 9.4 %[facility] HospitalNeutrophils (Bld) [#/Vol]4.8 10*3/[facility] Community HospitalNeutrophils/100 WBC (Bld)47.5 %[facility] HospitalPlatelet mean volume (Bld) [Entitic vol]7.5 fL7 - 12 [facility] HospitalPlatelets (Bld) [#/Vol]351 10*3/[facility] Community HospitalRBC (Bld) [#/Vol]5.22 10*6/[facility] HospitalWBC corrected for nucl RBC Auto (Bld) [#/Vol]10.1PBryn Mawr HospitalECG 12 leadOrdered By: Yesy Bryant on 10-20-2023 [facility] HospitalMagnesiumon 57-87-8335Cflvajyly [Mass/Vol]2.3 mg/dL1.8 - 2.6 mg/dLBarberton Citizens HospitalNo Panel Informationon 34-81-6982MzaTcoecrAshtabula County Medical CenterProFirelands Regional Medical CenterProtime & INRon 33-55-9584FEN Coag (PPP) [Relative time]1.0 {INR}[facility] HospitalPT Coag (PPP) [Time]11.5 s [facility] HospitalComment on above:NEW REFERENCE RANGEXR Chest Single view on 55-57-7502Obdsbp view chest History: AFib. Chest pain. Comparison: None Findings: Single portable view of the chest. Cardiac silhouette is normal in size. Trachea midline. Calcified nodule right upper lobe measuring 10 mm, likely benign granuloma. No large pleural effusion. No pneumothorax. Impression: 1. No acute findings. Finalized by Lopez Quintanilla MD on 10/20/2023 11:55 PMSECTLopez Rice MD - 10/20/2023 Single view chest History: AFib. Chest pain. Comparison: None Findings: Single portable view of the chest. Cardiac silhouette is normal in size. Trachea midline. Calcified nodule right upper lobe measuring 10 mm, likely benign granuloma. No large pleural effusion. No pneumothorax. Impression: 1. No acute findings. Finalized by Lopez Quintanilla MD on 10/20/2023 11:55 PM [facility] HospitalRadiology Study observation (narrative)[facility] HospitalXR Chest Single viewOrdered By: Lopez Quintanilla on 42-59-1279DjvNrejciAshtabula County Medical Center Work Phone: CHEMISTRYOrdered By: [place] SYSTEM on 34-31-8925Swhs PSA [Mass/Vol]0.3 ng/mLInvalid Interpretation CodeFT RemisolFree PSA/Total PSA [Mass fraction]12.0 %Low>=25.0%[facility] RemisolProstate specific Ag [Mass/Vol]2.8 ng/mLNormal0.1 - 3.5 ng/mLFTMC RemisolCBC AUTO DIFFon 01-67-7728BTXY #0.1 103/ul Normal0.0-0.1[facility] Hospital - DublinComment on above:Performed By: #### LACT #### [facility] [address] [address] [address] Latia RodriguezBasophils/100 WBC (Bld)0.9 %Normal0.2-2.0[facility] Comment on above:Performed By: #### LACT #### [facility] [address] [address] [address] Latia Romano #0.2 103/ulNormal0.0-0.7The [facility] HospitalComment on above: Performed By: #### LACT #### [facility] [address] [place] [address] Dr. Latia Silvermanosinophils/100 WBC (Bld)1.8 %Normal0.9-7.0[facility] Comment on above:Performed By: #### LACT #### [facility] [address] [place] [address] Dr. Latia Silvermanrythrocyte distribution width (RBC) [Ratio]12.6 %Odrruk37.0-15.0 The [facility] HospitalComment on above:Performed By: #### LACT #### [facility] [address] [place] [address] Dr. Latia RodriguezHematocrit (Bld) [Volume fraction]44.6 %Gmwgqs16.0-54.0The [facility] HospitalComment on above:Performed By: #### LACT #### [facility] [address] [place] [address] Dr. Latia RodriguezHemoglobin (Bld) [Mass/Vol]14.7 g/wUQvvdas59.0-18.0The [facility] HospitalComment on above:Performed By: #### LACT #### [facility] [address] [place] [address] Dr. Latia Bhat #0.05 10e3/ulCritically high0.00-0.03[facility] Comment on above:Performed By: #### LACT #### [facility] [address] [place] [address] Dr. Latia Bhat %0.5 %Normal0.0-0.5The [facility] HospitalComment on above: Performed By: #### LACT #### [facility] [address] [address] [address] Latia Maldonado #3.7 103/ulNormal1.2-3.8The [facility] HospitalComment on above:Performed By: #### LACT #### [facility] [address] [place] [address] Dr. Latia Eisenberghocytes/100 WBC (Bld)35.1 %Olxpen01.5-60.0The [facility] HospitalComment on above:Performed By: #### LACT #### [facility] [address] [place] [address] Dr. Latia High DIFF REQNONormalThe [facility] HospitalComment on above: Performed By: #### LACT #### [facility] [address] [place] [address] Dr. Latia Garcia (RBC) [Entitic mass]28.4 gfZndzuh70.9-34.0The [facility] HospitalComment on above:Performed By: #### LACT #### [facility] [address] [place] [address] Dr. Latia Garcia (RBC) [Mass/Vol]33.0 g/xNEulctg52.9-35.2The [facility] HospitalCombeaumont hospital on above:Performed By: #### LACT #### [facility] [address] [place] [address] Dr. Latia Garcia (RBC) [Entitic vol]86.1 tZEvpfiu18.0-94.0The [facility] HospitalComment on above:Performed By: #### LACT #### [facility] [address] [address] [address] Latia Darby #0.9 103/ulCritically high0.3-0.8[facility] Comment on above:Performed By: #### LACT #### [facility] [address] [place] [address] Dr. Latia Schwartzocytes/100 WBC (Bld)8.8 %Normal1.7-12.0[facility] Comment on above:Performed By: #### LACT #### [facility] [address] [address] [address] Latia Tong #5.6 103/ulNormal1.4-6.5The [facility] HospitalComment on above:Performed By: #### LACT #### [facility] [address] [address] [address] Latia Rodriguezutrophils/100 WBC (Bld)52.9 %Lwupph71.0-75.0The [facility] HospitalComment on above:Performed By: #### LACT #### [facility] [address] [address] [address] Latia Marinolet mean volume (Bld) [Entitic vol]8.6 fLCritically low 9.5-13.5The [facility] HospitalComment on above:Performed By: #### LACT #### [facility] [address] [address] [address] Latia RodriguezPLT443 103/avXpbauw283-247Syt [facility] HospitalComment on above: Performed By: #### LACT #### [facility] [address] [place] [address] Dr. Latia RodriguezRBC5.18 106/ulNormal4.70-6.10The [facility] HospitalComment on above:Performed By: #### LACT #### [facility] [address] [place] [address] Dr. Latia RodriguezWBC10.7 103/ulNormal4.0-11.0The [facility] HospitalComment on above:Performed By: #### LACT #### [facility] [address] [place] [address] Dr. Latia RodriguezPROF CHEM 8 (BAS METB)on 17-97-7213Omssa gap [Moles/Vol]14.1 mmol/LNormalThe [facility] HospitalComment on above:Performed By: #### LACT #### [facility] [address] [place] [address] Dr. Latia RodriguezCalcium [Mass/Vol]9.4 mg/dLNormal8.5-10.1[facility] Comment on above:Performed By: #### LACT #### [facility] [address] [place] [address] Dr. Latia RodriguezChloride [Moles/Vol]107 mmol/BTxvrsm96-242BdrSelect [facility] Comment on above:Performed By: #### LACT #### [facility] [address] [address] [address] Latia RodriguezCO2 [Moles/Vol]26.7 mmol/HJrjzqe49.0-32.0[facility] Comment on above:Performed By: #### LACT #### [facility] [address] [place] [address] Dr. Latia RodriguezCreatinine [Mass/Vol]1.05 mg/dLNormal0.70-1.30The [facility] HospitalComment on above:Performed By: #### LACT #### [facility] [address] [place] [address] Dr. Latia SilvermanGFR-AF SURINAMESE>60Normal>=60The [facility] HospitalComment on above:Performed By: #### LACT #### [facility] [address] [place] [address] Dr. Latia SilvermanGFR-NON AF SURINAMESE>60Normal>=60The [facility] HospitalComment on above:Performed By: #### LACT #### [facility] [address] [place] [address] Dr. Latia RodriguezGlucose [Mass/Vol]149 mg/dLCritically wwlj78-659Hxv [facility] HospitalComment on above:Performed By: #### LACT #### [facility] [address] [place] [address] Dr. Latia RodriguezPotassium [Moles/Vol]3.8 mmol/LNormal3.5-5.1[facility] Comment on above:Performed By: #### LACT #### [facility] [address] [place] [address] Dr. Latia RodriguezSodium [Moles/Vol]144 mmol/KRkznon456-251Kyw [facility] Comment on above:Performed By: #### LACT #### [facility] [address] [address] [address] Latia Moss nitrogen [Mass/Vol]19.0 mg/dLCritically high7.0-18.0The [facility] HospitalComment on above:Performed By: #### LACT #### [facility] [address] [place] [address] Dr. Latia Moss nitrogen/Creatinine [Mass ratio]18.1 mg/mgNormalThe [facility] HospitalComment on above:Performed By: #### LACT #### [facility] [address] [place] [address] Dr. Latia Burris 72-33-8741Teutvxomrqq peptide B (Bld) [Mass/Vol]686.0 pg/mL Normal<=900.0The [facility] HospitalComment on above:Performed By: #### CMP, BNP, CMADM #### [facility] [address] [place] [address] Dr. Latia Rae RAVEN ADMITon 11-33-2353VE [Catalytic activity/Vol]53 U/L Dqvjcu16-275Rcm [facility] HospitalComment on above:Performed By: #### CMP, BNP, CMADM #### [facility] [address] [place] [address] Dr. Latia Helms.MB [Mass/Vol]1.99 ng/mLNormal<=3.60The [facility] Comment on above:Performed By: #### CMP, BNP, CMADM #### [facility] [address] [place] [address] Dr. Latia SmithTROP86.2 pg/mLCritically high4.0-76.1The [facility] Comment on above:Result Comment: CUT-OFF POINTS HAVE BEEN ESTABLISHED BASED ON THE FOURTH UNIVERSAL DEFINITIONS OF MYOCARDIAL INFARCTION. THE UPPER REFERENCE LIMIT (URL) OF TROPONIN, DEFINED THE 99TH PERCENTILE OF cTnI DISTRIBUTION IN A REFERENCE POPULATION, HAS BEEN CONFIRMED THE DECISION THRESHOLD FOR MO DIAGNOSIS.Performed By: #### CMP, BNP, CMADM #### [facility] [address] [place] [address] Dr. Latia RodriguezMYO43 ng/iCVlqedp51-76Hsa [facility] Companyment on above: Performed By: #### CMP, BNP, CMADM #### [facility] [address] [address] [address] Latia Pressley AUTO DIFFon 32-21-7034TFSR #0.0 103/ulNormal0.0-0.1The [facility] HospitalCom[facility] on above:Performed By: #### LACT #### [facility] [address] [place] [address] Dr. Latia RodriguezBasophils/100 WBC (Bld)0.1 %Critically low0.2-2.0[facility] on above:Performed By: #### LACT #### [facility] [address] [place] [address] Dr. Latia SilvermanO #0.0 103/ulNormal0.0-0.7The [facility] HospitalCom[facility]aum[facility] hospital on above: Performed By: #### LACT #### [facility] [address] [place] [address] Dr. Latia Silvermanosinophils/100 WBC (Bld)0.0 %Critically low0.9-7.0[facility] on above:Performed By: #### LACT #### [facility] [address] [place] [address] Dr. Latia Silvermanrythrocyte distribution width (RBC) [Ratio]12.7 %Btrhol87.0-15.0 [facility] on above:Performed By: #### LACT #### [facility] [address] [place] [address] Dr. Latia RodriguezHematocrit (Bld) [Volume fraction]38.6 %Critically low42.0-54.0 [facility] on above:Performed By: #### LACT #### [facility] [address] [place] [address] Dr. Latia RodriguezHemoglobin (Bld) [Mass/Vol]12.6 g/dLCritically low14.0-18.0The [facility] HospitalComment on above:Performed By: #### LACT #### [facility] [address] [address] [address] Latia Bhat #0.13 10e3/ulCritically high0.00-0.03[facility] Comment on above:Performed By: #### LACT #### [facility] [address] [address] [address] Latia Bhat %0.6 %Critically high0.0-0.5The [facility] HospitalComment on above:Performed By: #### LACT #### [facility] [address] [address] [address] Latia Maldonado #1.2 103/ulNormal1.2-3.8The [facility] HospitalComment on above:Performed By: #### LACT #### [facility] [address] [place] [address] Dr. Latia Eisenberghocytes/100 WBC (Bld)5.7 %Critically low20.5-60.0The [facility] HospitalComment on above:Performed By: #### LACT #### [facility] [address] [address] [address] Latia FullerUAL DIFF REQNONormalThe [facility] HospitalComment on above: Performed By: #### LACT #### [facility] [address] [address] [address] Latia Garcia (RBC) [Entitic mass]29.2 oePwhnyh81.9-34.0The [facility] HospitalComment on above:Performed By: #### LACT #### [facility] [address] [place] [address] Dr. Latia Garcia (RBC) [Mass/Vol]32.6 g/qRCfdavm60.9-35.2The [facility] HospitalComment on above:Performed By: #### LACT #### [facility] [address] [place] [address] Dr. Latia Garcia (RBC) [Entitic vol]89.4 mKBjktox89.0-94.0The [facility] HospitalComment on above:Performed By: #### LACT #### [facility] [address] [address] [address] Latia Darby #0.8 103/ulNormal0.3-0.8The [facility] HospitalComment on above:Performed By: #### LACT #### [facility] [address] [address] [address] Latia Schwartzocytes/100 WBC (Bld)4.0 %Normal1.7-12.0[facility] Comment on above:Performed By: #### LACT #### [facility] [address] [place] [address] Dr. Latia Tong #18.4 103/ulCritically high1.4-6.5[facility] Comment on above:Performed By: #### LACT #### [facility] [address] [place] [address] Dr. Latia Rodriguezutrophils/100 WBC (Bld)89.6 %Critically high43.0-75.0The [facility] HospitalComment on above:Performed By: #### LACT #### [facility] [address] [place] [address] Dr. Latia Coffey mean volume (Bld) [Entitic vol]9.2 fLCritically low 9.5-13.5The [facility] HospitalComment on above:Performed By: #### LACT #### [facility] [address] [place] [address] Dr. Latia RodriguezPLT461 103/ulCritically qgzr599-548Uhy [facility] HospitalComment on above:Performed By: #### LACT #### [facility] [address] [address] [address] Latia RodriguezRBC4.32 106/ulCritically low4.70-6.10The [facility] HospitalComment on above:Performed By: #### LACT #### [facility] [address] [place] [address] Dr. Latia RodriguezWBC20.6 103/ulCritically high4.0-11.0The [facility] HospitalComment on above:Performed By: #### LACT #### [facility] [address] [address] [address] Latia Simpson 14(COMP METB)on 64-08-9167Rfpholh [Mass/Vol]2.9 g/dL Critically low3.4-5.0The [facility] HospitalComment on above:Performed By: #### CMP, BNP, CMADM #### [facility] [address] [address] [address] Latia RodriguezAlbumin/Globulin [Mass ratio]1.0 {ratio}NormalThe [facility] HospitalComment on above:Performed By: #### CMP, BNP, CMADM #### [facility] [address] [place] [address] Dr. Latia Caldwell [Catalytic activity/Vol]59 U/HXewuhs42-772Xwc [facility] HospitalComment on above:Performed By: #### CMP, BNP, CMADM #### [facility] [address] [address] [address] Latia Redding [Catalytic activity/Vol]30 U/ODkpcqs51-01Bsm [facility] HospitalComment on above:Performed By: #### CMP, BNP, CMADM #### [facility] [address] [place] [address] Dr. Latia Corbin gap [Moles/Vol]14.9 mmol/LNormalThe [facility] Comment on above:Performed By: #### CMP, BNP, CMADM #### [facility] [address] [address] [address] Latia RodriguezAST [Catalytic activity/Vol]8 U/LCritically iku56-59Klw [facility] HospitalComment on above:Performed By: #### CMP, BNP, CMADM #### [facility] [address] [place] [address] Dr. Latia RodriguezBilirubin [Mass/Vol]0.2 mg/dLNormal0.2-1.0[facility] Comment on above:Performed By: #### CMP, BNP, CMADM #### [facility] [address] [address] [address] Latia RodriguezCalcium [Mass/Vol]8.5 mg/dLNormal8.5-10.1[facility] Comment on above:Performed By: #### CMP, BNP, CMADM #### [facility] [address] [address] [address] Latia RodriguezChloride [Moles/Vol]105 mmol/EGbtrvk05-330Azq [facility] Comment on above:Performed By: #### CMP, BNP, CMADM #### [facility] [address] [address] [address] Latia RodriguezCO2 [Moles/Vol]23.5 mmol/KZyyqmo51.0-32.0[facility] Comment on above:Performed By: #### CMP, BNP, CMADM #### [facility] [address] [place] [address] Dr. Latia RodriguezCreatinine [Mass/Vol]1.16 mg/dLNormal0.70-1.30The [facility] HospitalComment on above:Performed By: #### CMP, BNP, CMADM #### [facility] [address] [place] [address] Dr. Latia SilvermanGFR-AF SURINAMESE>60Normal>=60The [facility] HospitalComment on above:Performed By: #### CMP, BNP, CMADM #### [facility] [address] [place] [address] Dr. Latia SilvermanGFR-NON AF SURINAMESE>60Normal>=60The [facility] HospitalComment on above:Performed By: #### CMP, BNP, CMADM #### [facility] [address] [place] [address] Dr. Ltaia RodriguezGlobulin (S) [Mass/Vol]2.9 g/dLNormalThe [facility] HospitalComment on above:Performed By: #### CMP, BNP, CMADM #### [facility] [address] [place] [address] Dr. Latia RodriguezGlucose [Mass/Vol]226 mg/dLCritically eesx22-049Efc [facility] HospitalComment on above:Performed By: #### CMP, BNP, CMADM #### [facility] [address] [address] [address] Latia RodriguezPotassium [Moles/Vol]3.4 mmol/LCritically low3.5-5.1The [facility] HospitalComment on above:Performed By: #### CMP, BNP, CMADM #### [facility] [address] [address] [address] Latia RodriguezProtein [Mass/Vol]5.8 g/dLCritically low6.4-8.2The [facility] HospitalComment on above:Performed By: #### CMP, BNP, CMADM #### [facility] [address] [place] [address] Dr. Latia Mcdium [Moles/Vol]140 mmol/MTmpbft596-150Nkz [facility] Comment on above:Performed By: #### CMP, BNP, CMADM #### [facility] [address] [place] [address] Dr. Latia RodriguezUrea nitrogen [Mass/Vol]15.0 mg/dLNormal7.0-18.0The [facility] HospitalComment on above:Performed By: #### CMP, BNP, CMADM #### [facility] [address] [place] [address] Dr. Latia Moss nitrogen/Creatinine [Mass ratio]12.9 mg/mgNormalThe [facility] HospitalComment on above:Performed By: #### CMP, BNP, CMADM #### [facility] [address] [place] [address] Dr. Latia Burris 25-89-6285Qillfoqlbuc peptide B (Bld) [Mass/Vol]501.0 pg/mL Normal<=900.0The [facility] HospitalComment on above:Performed By: #### POCGLUC #### [facility] [address] [place] [address] Dr. Latia Rae RAVEN 3-6on 88-35-5644NQ [Catalytic activity/Vol]111 U/L Wqjjzb63-902Olk [facility] HospitalComment on above:Performed By: #### CMREP #### [facility] [address] [place] [address] Dr. Latia Helms.MB [Mass/Vol]2.71 ng/mLNormal<=3.60[facility] Comment on above:Performed By: #### CMREP #### [facility] [address] [place] [address] Dr. Latia Garvey348.1 pg/mLCritically high4.0-76.1[facility] Comment on above:Result Comment: CUT-OFF POINTS HAVE BEEN ESTABLISHED BASED ON THE FOURTH UNIVERSAL DEFINITIONS OF MYOCARDIAL INFARCTION. THE UPPER REFERENCE LIMIT (URL) OF TROPONIN, DEFINED THE 99TH PERCENTILE OF cTnI DISTRIBUTION IN A REFERENCE POPULATION, HAS BEEN CONFIRMED THE DECISION THRESHOLD FOR MO DIAGNOSIS.Performed By: #### CMREP #### [facility] [address] [place] [address] Dr. Latia CARBAJAL ADMITon 85-31-9812OE [Catalytic activity/Vol]91 U/L Gicszl19-373Igy [facility] HospitalComment on above:Performed By: #### POCGLUC #### [facility] [address] [place] [address] Dr. Latia Helms.MB [Mass/Vol]3.11 ng/mLNormal<=3.60[facility] Comment on above:Performed By: #### POCGLUC #### [facility] [address] [place] [address] Dr. Latia Garvey326.9 pg/mLCritically high4.0-76.1[facility] Comment on above:Result Comment: CUT-OFF POINTS HAVE BEEN ESTABLISHED BASED ON THE FOURTH UNIVERSAL DEFINITIONS OF MYOCARDIAL INFARCTION. THE UPPER REFERENCE LIMIT (URL) OF TROPONIN, DEFINED THE 99TH PERCENTILE OF cTnI DISTRIBUTION IN A REFERENCE POPULATION, HAS BEEN CONFIRMED THE DECISION THRESHOLD FOR MO DIAGNOSIS.Performed By: #### POCGLUC #### [facility] [address] [place] [address] Dr. Latia RodriguezMYO41 ng/aYGjidjj23-44Jhm [facility] HospitalComment on above: Performed By: #### POCGLUC #### [facility] [address] [address] [address] Latia Pressley AUTO DIFFon 55-57-0711MBTS #0.0 103/ulNormal0.0-0.1The [facility] Companyment on above:Performed By: #### CBC #### [facility] [address] [address] [address] Latia RodriguezBasophils/100 WBC (Bld)0.2 %Normal0.2-2.0[facility] Comment on above:Performed By: #### CBC #### [facility] [address] [place] [address] Dr. Latia Romano #0.0 103/ulNormal0.0-0.7The [facility] HospitalComment on above: Performed By: #### CBC #### [facility] [address] [place] [address] Dr. Latia Silvermanosinophils/100 WBC (Bld)0.1 %Critically low0.9-7.0The [facility] HospitalComment on above:Performed By: #### CBC #### [facility] [address] [place] [address] Dr. Latia Silvermanrythrocyte distribution width (RBC) [Ratio]12.8 %Xgrlrm18.0-15.0 [facility]ment on above:Performed By: #### CBC #### [facility] [address] [place] [address] Dr. Latia RodriguezHematocrit (Bld) [Volume fraction]45.4 %Naliee44.0-54.0The [facility] Companyment on above:Performed By: #### CBC #### [facility] [address] [place] [address] Dr. Latia RodriguezHemoglobin (Bld) [Mass/Vol]14.8 g/tHWdcggi88.0-18.0The [facility]ment on above:Performed By: #### CBC #### [facility] [address] [place] [address] Dr. Latia Bhat #0.05 10e3/ulCritically high0.00-0.03[facility] Comment on above:Performed By: #### CBC #### [facility] [address] [place] [address] Dr. Latia Bhat %0.6 %Critically high0.0-0.5The [facility] HospitalComment on above:Performed By: #### CBC #### [facility] [address] [address] [address] Latia Maldonado #0.8 103/ulCritically low1.2-3.8The [facility] Comment on above:Performed By: #### CBC #### [facility] [address] [place] [address] Dr. Latia Eisenberghocytes/100 WBC (Bld)8.4 %Critically low20.5-60.0The [facility] HospitalComment on above:Performed By: #### CBC #### [facility] [address] [place] [address] Dr. Latia High DIFF REQNONormalThe [facility] HospitalComment on above: Performed By: #### CBC #### [facility] [address] [place] [address] Dr. Latia Jackson (RBC) [Entitic mass]29.4 nsCcjhqw78.9-34.0The [facility] HospitalComment on above:Performed By: #### CBC #### [facility] [address] [place] [address] Dr. Latia Garcia (RBC) [Mass/Vol]32.6 g/bTPurdqa48.9-35.2The [facility] HospitalComment on above:Performed By: #### CBC #### [facility] [address] [place] [address] Dr. Latia Valera (RBC) [Entitic vol]90.3 lCRzcavd95.0-94.0[facility] DublinComment on above:Performed By: #### CBC #### [facility] [address] [place] [address] Dr. Laita Darby #0.1 103/ulCritically low0.3-0.8The [facility] HospitalComment on above:Performed By: #### CBC #### [facility] [address] [place] [address] Dr. Latia Schwartzocytes/100 WBC (Bld)1.0 %Critically low1.7-12.0The [facility] HospitalComment on above:Performed By: #### CBC #### [facility] [address] [place] [address] Dr. Latia Tong #8.0 103/ulCritically high1.4-6.5[facility] Comment on above:Performed By: #### CBC #### [facility] [address] [place] [address] Dr. Latia Rodriguezutrophils/100 WBC (Bld)89.7 %Critically high43.0-75.0The [facility] HospitalComment on above:Performed By: #### CBC #### [facility] [address] [place] [address] Dr. Latia RodriguezPlatelet mean volume (Bld) [Entitic vol]9.3 fLCritically low 9.5-13.5The [facility] HospitalComment on above:Performed By: #### CBC #### [facility] [address] [place] [address] Dr. Latia RandT406 103/riOuzkpa415-558Djk [facility] HospitalComment on above: Performed By: #### CBC #### [facility] [address] [place] [address] Dr. Latia JosephC5.03 106/ulNormal4.70-6.10The [facility] HospitalComment on above:Performed By: #### CBC #### [facility] [address] [place] [address] Dr. Latia WardBC9.0 103/ulNormal4.0-11.0The [facility] HospitalComment on above: Performed By: #### CBC #### [facility] [address] [place] [address] Dr. Latia Meza M/2D COMPLETEon 80-44-2023VVPQACKEGS M/2D COMPLETE Patient: REGIS HORTA Exam Date: 07/13/2022 : 1970 Gender:M Ordering : DR MELVIN PEREZ . Admission #: [id number] Family : Order #: [id number] CLICK HERE TO VIEW EXAM ECHOCARDIOGRAM REPORT [...] 3.22 cm Aortic Valve AoV Area (Peak Kwaku): 2.83 cm2, 2.83 cm2 AoV Area (VTI): [...] by: Killian Blanchard M.D. on 07/18/2022 at 11:36[facility] HospitalPR[facility] 14(COMP METB)on 80-53-2896Jswpjou [Mass/Vol]3.1 g/dLCritically low 3.4-5.0The [facility] HospitalComment on above:Performed By: #### POCGLUC #### [facility] [address] [place] [address] Dr. Latia RodriguezAlbumin/Globulin [Mass ratio]0.9 {ratio}NormalThe [facility] HospitalComment on above:Performed By: #### POCGLUC #### [facility] [address] [address] [address] Latia Caldwell [Catalytic activity/Vol]80 U/YQcsabf23-720Ofo [facility] HospitalCombeaumont hospital on above:Performed By: #### POCGLUC #### [facility] [address] [address] [address] Latia LozoyaT [Catalytic activity/Vol]34 U/QRddjeo03-42Aeu [facility] HospitalComment on above:Performed By: #### POCGLUC #### [facility] [address] [address] [address] Latia Corbin gap [Moles/Vol]13.0 mmol/LNormalSelect [facility] Comment on above:Performed By: #### POCGLUC #### [facility] [address] [address] [address] Latia RodriguezAST [Catalytic activity/Vol]16 U/EIoqwnn36-76Icv [facility] HospitalComment on above:Performed By: #### POCGLUC #### [facility] [address] [address] [address] Latia RodriguezBilirubin [Mass/Vol]0.5 mg/dLNormal0.2-1.0[facility] Comment on above:Performed By: #### POCGLUC #### [facility] [address] [address] [address] Latia RodriguezCalcium [Mass/Vol]7.8 mg/dLCritically low8.5-10.1The [facility] HospitalComment on above:Performed By: #### POCGLUC #### [facility] [address] [address] [address] Latia RodriguezChloride [Moles/Vol]107 mmol/UKqgvyi86-734Zqp [facility] Comment on above:Performed By: #### POCGLUC #### [facility] [address] [address] [address] Latia RodriguezCO2 [Moles/Vol]23.8 mmol/GStxajg15.0-32.0The [facility] Comment on above:Performed By: #### POCGLUC #### [facility] [address] [address] [address] Latia RodriguezCreatinine [Mass/Vol]0.97 mg/dLNormal0.70-1.30The [facility] HospitalComment on above:Performed By: #### POCGLUC #### [facility] [address] [address] [address] Latia SilvermanGFR-AF SURINAMESE>60Normal>=60The [facility] HospitalComment on above:Performed By: #### POCGLUC #### [facility] [address] [address] [address] Latia SilvermanGFR-NON AF SURINAMESE>60Normal>=60The [facility] HospitalComment on above:Performed By: #### POCGLUC #### [facility] [address] [address] [address] Latia RodriguezGlobulin (S) [Mass/Vol]3.3 g/dLNormalThe [facility] HospitalComment on above:Performed By: #### POCGLUC #### [facility] [address] [address] [address] Latia RodriguezGlucose [Mass/Vol]161 mg/dLCritically fsln80-333Pwi [facility] Companyment on above:Performed By: #### POCGLUC #### [facility] [address] [address] [address] Latia RodriguezPotassium [Moles/Vol]3.8 mmol/LNormal3.5-5.1The [facility] Comment on above:Performed By: #### POCGLUC #### [facility] [address] [address] [address] Latia RodriguezProtein [Mass/Vol]6.4 g/dLNormal6.4-8.2The [facility] Comment on above:Performed By: #### POCGLUC #### [facility] [address] [address] [address] Latia RodriguezSodium [Moles/Vol]140 mmol/QWukeqq268-871Pgw [facility] Comment on above:Performed By: #### POCGLUC #### [facility] [address] [place] [address] Dr. Latia Moss nitrogen [Mass/Vol]13.0 mg/dLNormal7.0-18.0The [facility] HospitalComment on above:Performed By: #### POCGLUC #### [facility] [address] [place] [address] Dr. Latia RodriguezUrea nitrogen/Creatinine [Mass ratio]13.4 mg/mgNoSamaritan HospitalComment on above:Performed By: #### POCGLUC #### [facility] [address] [place] [address] Dr. Latia RodriguezXR CHEST 2 Von [id number] CHEST 2 VEXAM: XR CHEST 2 V HISTORY: COUGH COMPARISON: [...] Electronically authenticated by: GERARDO ABARCA Date: 2022-07-13 14:16[facility] HospitalACETAMINOPHENon 02-16-3064Rcgcgwuwfvefz [Mass/Vol]ug/mL Critically low10.0-30.0The [facility] Companyment on above:Performed By: #### POCGLUC #### [facility] [address] [place] [address] Dr. Latia PatelONE SERUMon 86-77-7197FRDRUWAQnsjgascHvegykTYALEPEXTsc [facility] HospitalComment on above:Performed By: #### DIG #### [facility] [address] [place] [address] Dr. Latia Burris 64-21-2308Aosxsbxhmdi peptide B (Bld) [Mass/Vol]42.0 pg/mL Normal<=900.0The [facility] HospitalCom[facility]aumont hospital on above:Performed By: #### DIG #### [facility] [address] [address] [address] Latia Rae RAVEN 3-6on 28-01-0526AB [Catalytic activity/Vol]111 U/L Rzpxpz68-485Tge [facility] HospitalComment on above:Performed By: #### LACT #### [facility] [address] [place] [address] Dr. Latia Helms.MB [Mass/Vol]2.64 ng/mLNormal<=3.60The [facility] Comment on above:Performed By: #### LACT #### [facility] [address] [place] [address] Dr. Latia RodriguezHSTROP159.4 pg/mLCritically high4.0-76.1[facility] Comment on above:Result Comment: CUT-OFF POINTS HAVE BEEN ESTABLISHED BASED ON THE FOURTH UNIVERSAL DEFINITIONS OF MYOCARDIAL INFARCTION. THE UPPER REFERENCE LIMIT (URL) OF TROPONIN, DEFINED THE 99TH PERCENTILE OF cTnI DISTRIBUTION IN A REFERENCE POPULATION, HAS BEEN CONFIRMED THE DECISION THRESHOLD FOR MO DIAGNOSIS.Performed By: #### LACT #### [facility] [address] [place] [address] Dr. Latia Pressley AUTO DIFFon 47-26-5704KXTC #0.1 103/ulNormal0.0-0.1[facility] - DublinComment on above:Performed By: #### LACT #### [facility] [address] [place] [address] Dr. Latia RodriguezBasophils/100 WBC (Bld)0.5 %Normal0.2-2.0[facility] Comment on above:Performed By: #### LACT #### [facility] [address] [place] [address] Dr. Latia Romano #0.2 103/ulNormal0.0-0.7The [facility] HospitalComment on above: Performed By: #### LACT #### [facility] [address] [place] [address] Dr. Latia Silvermanosinophils/100 WBC (Bld)1.4 %Normal0.9-7.0[facility] Comment on above:Performed By: #### LACT #### [facility] [address] [place] [address] Dr. Latia Silvermanrythrocyte distribution width (RBC) [Ratio]12.9 %Odkekg38.0-15.0 The [facility] HospitalComment on above:Performed By: #### LACT #### [facility] [address] [place] [address] Dr. Latia RodriguezHematocrit (Bld) [Volume fraction]42.5 %Pogdnf38.0-54.0The [facility] HospitalComment on above:Performed By: #### LACT #### [facility] [address] [place] [address] Dr. Latia RodriguezHemoglobin (Bld) [Mass/Vol]14.0 g/kAMrjbqq13.0-18.0[facility] DublinComment on above:Performed By: #### LACT #### [facility] [address] [place] [address] Dr. Latia Bhat #0.05 10e3/ulCritically high0.00-0.03[facility] Comment on above:Performed By: #### LACT #### [facility] [address] [place] [address] Dr. Latia Bhat %0.5 %Normal0.0-0.5The [facility] HospitalComment on above: Performed By: #### LACT #### [facility] [address] [place] [address] Dr. Latia Maldonado #1.8 103/ulNormal1.2-3.8The [facility] HospitalComment on above:Performed By: #### LACT #### [facility] [address] [place] [address] Dr. Latia Hammondsmphocytes/100 WBC (Bld)16.2 %Critically low20.5-60.0The [facility] HospitalComment on above:Performed By: #### LACT #### [facility] [address] [place] [address] Dr. Latia FullerUAL DIFF REQNONormalThe [facility] HospitalComment on above: Performed By: #### LACT #### [facility] [address] [place] [address] Dr. Latia Garcia (RBC) [Entitic mass]29.4 hoFknpdd94.9-34.0The [facility] HospitalComment on above:Performed By: #### LACT #### [facility] [address] [place] [address] Dr. Latia Garcia (RBC) [Mass/Vol]32.9 g/vJXouyad15.9-35.2The [facility] HospitalComment on above:Performed By: #### LACT #### [facility] [address] [place] [address] Dr. Latia Garcia (RBC) [Entitic vol]89.3 lMMfpwbh67.0-94.0The [facility] HospitalComment on above:Performed By: #### LACT #### [facility] [address] [place] [address] Dr. Latia Darby #0.7 103/ulNormal0.3-0.8The [facility] HospitalComment on above:Performed By: #### LACT #### [facility] [address] [place] [address] Dr. Latia Schwartzocytes/100 WBC (Bld)6.7 %Normal1.7-12.0[facility] Comment on above:Performed By: #### LACT #### [facility] [address] [place] [address] Dr. Latia Tong #8.3 103/ulCritically high1.4-6.5[facility] Comment on above:Performed By: #### LACT #### [facility] [address] [place] [address] Dr. Latia Rodriguezutrophils/100 WBC (Bld)74.7 %Fwfdhb32.0-75.0The [facility] HospitalComment on above:Performed By: #### LACT #### [facility] [address] [place] [address] Dr. Latia Coffey mean volume (Bld) [Entitic vol]8.5 fLCritically low 9.5-13.5The [facility] HospitalComment on above:Performed By: #### LACT #### [facility] [address] [place] [address] Dr. Latia RodriguezPLT394 103/fuIknvvq341-527Fko [facility] HospitalComment on above: Performed By: #### LACT #### [facility] [address] [place] [address] Dr. Latia RodriguezRBC4.76 106/ulNormal4.70-6.10The [facility] HospitalComment on above:Performed By: #### LACT #### [facility] [address] [place] [address] Dr. Latia RodriguezWBC11.1 103/ulCritically high4.0-11.0The [facility] HospitalComment on above:Performed By: #### LACT #### [facility] [address] [place] [address] Dr. Latia RodriguezCT CSPINE WO CONon 48-43-2124HQ CSPINE WO CONEXAMINATION: CT CSPINE WO CON HISTORY: Unspecified fall [...] Electronically authenticated by: KODY MACIEL Date: 2022-07-12 16:38NoSamaritan HospitalCT HEAD WO CONon 71-02-1348LC HEAD WO CONEXAMINATION: CT HEAD WO CON HISTORY: Unspecified fall [...] Electronically authenticated by: ALYSSIA ORONA Date: 2022-07-12 16:20NoSamaritan HospitalCULTURE BLOODon 99-15-8155Woomfmlxvwf examination of blood, cultureCulture Observations: NO GROWTH AT 5 DAYS.NormalSelect Medical [facility] Hospital - DublinComment on above:Performed By: #### CMREP #### [facility] [address] [address] [address] Latia RodriguezMicroscopic examination of blood, cultureCulture Observations: NO GROWTH AT 5 DAYS.NormalThe [facility] HospitalComment on above:Performed By: #### CMREP #### [facility] [address] [address] [address] Latia RodriguezCovid-19 PCR ([facility])on 72-91-4785OEFS-CoV-2 (COVID-19) RNA KATHARINA+probe Ql (Unsp spec)Not detectedNormalNOT DETECTEDThe [facility] Comment on above:Result Comment: When diagnostic testing is negative, the [...] for this test is supported by the [place] of Health and Human Service's declaration that circumstances exist to justify the emergency use of in vitro diagnostics for the detection and/or diagnosis of the virus that causes COVID-19. This EUA will remain in effect for the duration of the COVID-19 declaration justifying emergency of IVDs, unless it is terminated or revoked by the FDA (after which the test may no longer be used).Performed By: #### LACT #### [facility] [address] [place] [address] Dr. Latia Terry 93-89-4841VKK<0.2Critically low0.9-2.0[facility] on above:Performed By: #### DIG #### [facility] [address] [place] [address] Dr. Latia Roche SCREEN RAPID (URINE)on 73-38-7480WGESonbmijtRvmouzaeBGFLTYGF [facility] DublinCom[facility] hospital on above:Performed By: #### [id number] #### [facility] [address] [place] [address] Dr. Latia BarrazaNegativeNormalNEGATIVESelect Medical [facility], [facility] on above: Performed By: #### [id number] #### [facility] [address] [place] [address] Dr. Latia MoniquePNegativeNormalNEGATIVESelect [facility] DublinCombeaum[facility] hospital on above: Performed By: #### [id number] #### [facility] [address] [place] [address] Dr. Latia RodriguezBZOPositiveAbrmalNEGATIVESelect [facility] on above: Performed By: #### [id number] #### [facility] [address] [place] [address] Dr. Latia RodriguezCOCNegativeNormalNEGATIVESelect Medical [facility] DublinCombeaum[facility] hospital on above: Performed By: #### [id number] #### [facility] [address] [place] [address] Dr. Latia MartinezThe Jewish HospitalCombeaumont hospital on above: Result Comment: AMP (Amphetamine): 500ng/mL, BAR (Barbituates): 200 ng/mL, BZO (Benzodiazepines): 150 ng/mL, BUP (Buprenorphine): 10 ng/mL, MYRTLE (Cocaine): 150 ng/mL, mAMP (Methamphetamine): 500 ng/mL, MTD (Methadone): 200 ng/mL, OPI (Opiates): 100 ng/mL, OXY (Oxycodone): 100 ng/mL, PCP (Phencyclidine): 25 ng/mL, PPX (Propoxyphene): 300 ng/mL, THC (Cannabinoids): 50 ng/mL, TCA (Trycyclic Antidepressants): 300 ng/mLPerformed By: #### [id number] #### [facility] [address] [place] [address] Dr. Latia RodriguezDRUG CUT HEADERDRUG CLASS TEST SYSTEM CUT-OFF CONCENTRATIONS ARE FOLLOWS:NormalThe [facility] HospitalComment on above:Performed By: #### [id number] #### [facility] [address] [place] [address] Dr. Latia RodriguezmAMPPositiveAbnormalNEGATIVESelect [facility] DublinCom[facility] hospital on above:Performed By: #### [id number] #### [facility] [address] [place] [address] Dr. Latia RodriguezMTDNegativeNormalNEGATIVESelect Medical [facility] - DublinComment on above: Performed By: #### [id number] #### [facility] [address] [place] [address] Dr. Latia AmbrizIPositiveAbnormalNEGATIVESelect [facility]Com[facility] hospital on above: Performed By: #### [id number] #### [facility] [address] [place] [address] Dr. Latia RodriguezOXYNegativeNormalNEGATIVESelect [facility] DublinCom[facility]um[facility] hospital on above: Performed By: #### [id number] #### [facility] [address] [place] [address] Dr. Latia RodriguezPCPNegativeNormalNEGATIVESelect Medical [facility] - DublinComment on above: Performed By: #### [id number] #### [facility] [address] [place] [address] Dr. Latia RodriguezPPXNegativeNormalNEGATIVESelect [facility] DublinCom[facility] hospital on above: Performed By: #### [id number] #### [facility] [address] [place] [address] Dr. Latia RodriguezTCANegativeNormalNEGATIVESelect [facility] on above: Performed By: #### [id number] #### [facility] [address] [address] [address] Latia RodriguezTHCNegativeNormalNEGATIVESelect Medical [facility] on above: Performed By: #### [id number] #### [facility] [address] [address] [address] Latia Anderson URINE PROFILEon 48-20-1020Mjtjqbxui Ql (U)NegativeNormal NEGATIVESelect Medical [facility] DublinCombeaumont hospital on above:Performed By: #### [id number] #### [facility] [address] [address] [address] Latia RodriguezClarity (U)CLEARNormalCLEARSelect Medical [facility] on above: Performed By: #### [id number] #### [facility] [address] [address] [address] Latia Stanford (U)LT. YELLOWNormalYELLOWSelect Medical Specialty Hospital - Cleveland-Fairhillment on above:Performed By: #### [id number] #### [facility] [address] [place] [address] Dr. Latia Salazar micrscopic examination will be performed if indicated. NormalSelect Medical Specialty [facility], [facility] on above:Performed By: #### [id number] #### [facility] [address] [address] [address] Latia RodriguezGlucose Ql (U)NegativeNormalNEGATIVESelect Medical [facility] on above:Performed By: #### [id number] #### [facility] [address] [address] [address] Latia RodriguezHemoglobin Ql (U)NegativeNormalNEGATIVEWexner Medical Center on above:Performed By: #### [id number] #### [facility] [address] [address] [address] Latia RodriguezKetones Ql (U)NegativeNormalNEGATIVESelect Medical [facility] on above:Performed By: #### [id number] #### [facility] [address] [address] [address] Latia RodriguezLEUKOCYTESNegativeNormalNEGATIVEThe [facility] HospitalComment on above:Performed By: #### [id number] #### [facility] [address] [place] [address] Dr. Latia Whittakertrmolly Ql (U)NegativeNormalNEGATIVEThe [facility] HospitalComment on above:Performed By: #### [id number] #### [facility] [address] [address] [address] Latia RodriguezpH (U)6.0 [pH]Normal5-9The [facility] HospitalComment on above: Performed By: #### [id number] #### [facility] [address] [place] [address] Dr. Latia RodriguezSPEC GRAVITY1.934Peslru8.005-<=1.025The [facility] HospitalComment on above:Performed By: #### [id number] #### [facility] [address] [place] [address] Dr. Latia Marti PROTEINNegativeNormalNEGATIVE/ TRACEThe [facility] Comment on above:Performed By: #### [id number] #### [facility] [address] [address] [address] Latia Baker MICRO INDNOT INDICATEDNoSamaritan HospitalComment on above:Performed By: #### [id number] #### [facility] [address] [place] [address] Dr. Latia Alcala Qn (U)0.2 {Chance'U}/dLNormal0.2 - 1.0The [facility] HospitalComment on above:Performed By: #### [id number] #### [facility] [address] [place] [address] Dr. Latia Johnson (BLD ALC)on 28-42-4372REV NOTENOTE: 80 mg/dl is the legal limit for a blood alcohol levelNoSamaritan HospitalComment on above: Performed By: #### [id number] #### [facility] [address] [place] [address] Dr. Yilan ChangEthanol [Mass/Vol]mg/dLNormalThe [facility] HospitalComment on above:Performed By: #### [id number] #### [facility] [address] [place] [address] Dr. Latia MorejonCTATE/LACTIC ACIDon 49-95-7342Wkvnogx [Moles/Vol]0.9 mmol/L Normal0.4-1.9The [facility] HospitalComment on above:Performed By: #### [id number] #### [facility] [address] [place] [address] Dr. Latia RodriguezLactate [Moles/Vol]1.0 mmol/LNormal0.4-1.9[facility] Comment on above:Performed By: #### POCGLUC #### [facility] [address] [place] [address] Dr. Latia Trujillo VENOUS BLOODon 33-44-4269SGD6 AYNVDY17.3 gmAhAftdez94.0-52.0 The [facility] HospitalComment on above:Performed By: #### DIG #### [facility] [address] [place] [address] Dr. Latia Trujillo VENOUS7.314Critically low7.330-7.430The [facility] Comment on above:Performed By: #### DIG #### [facility] [address] [place] [address] Dr. Latia RodriguezPROF 14(COMP METB)on 24-19-6401Btuvchc [Mass/Vol]3.5 g/dLNormal 3.4-5.0The [facility] HospitalComment on above:Performed By: #### POCGLUC #### [facility] [address] [place] [address] Dr. Latia RodriguezAlbumin/Globulin [Mass ratio]1.1 {ratio}NormalThe [facility] HospitalComment on above:Performed By: #### POCGLUC #### [facility] [address] [place] [address] Dr. Latia LozoyaP [Catalytic activity/Vol]74 U/JJtwrur33-333Qag [facility] HospitalComment on above:Performed By: #### POCGLUC #### [facility] [address] [address] [address] Latia Redding [Catalytic activity/Vol]44 U/VPfxhou66-84Xay [facility] HospitalComment on above:Performed By: #### POCGLUC #### [facility] [address] [address] [address] Latia RodriguezAnion gap [Moles/Vol]9.0 mmol/LNormalThe [facility] HospitalComment on above:Performed By: #### POCGLUC #### [facility] [address] [address] [address] Latia RodriguezAST [Catalytic activity/Vol]32 U/ITesxuy67-53Crs [facility] HospitalComment on above:Performed By: #### POCGLUC #### [facility] [address] [address] [address] Latia RodriguezBilirubin [Mass/Vol]0.3 mg/dLNormal0.2-1.0[facility] Comment on above:Performed By: #### POCGLUC #### [facility] [address] [address] [address] Latia RodriguezCalcium [Mass/Vol]8.3 mg/dLCritically low8.5-10.1The [facility] HospitalComment on above:Performed By: #### POCGLUC #### [facility] [address] [address] [address] Latia RodriguezChloride [Moles/Vol]105 mmol/BXixupj98-548Uum [facility] Comment on above:Performed By: #### POCGLUC #### [facility] [address] [address] [address] Latia RodriguezCO2 [Moles/Vol]27.8 mmol/UMziknf29.0-32.0[facility] Comment on above:Performed By: #### POCGLUC #### [facility] [address] [address] [address] Latia RodriguezCreatinine [Mass/Vol]1.08 mg/dLNormal0.70-1.30The [facility] HospitalComment on above:Performed By: #### POCGLUC #### [facility] [address] [address] [address] Latia SilvermanGFR-AF SURINAMESE>60Normal>=60The [facility] HospitalComment on above:Performed By: #### POCGLUC #### [facility] [address] [address] [address] Latia SilvermanGFR-NON AF SURINAMESE>60Normal>=60The [facility] HospitalComment on above:Performed By: #### POCGLUC #### [facility] [address] [address] [address] Latia RodriguezGlobulin (S) [Mass/Vol]3.2 g/dLNormalThe [facility] HospitalComment on above:Performed By: #### POCGLUC #### [facility] [address] [address] [address] Latia RodriguezGlucose [Mass/Vol]135 mg/dLCritically yenu33-994Kmd [facility] HospitalComment on above:Performed By: #### POCGLUC #### [facility] [address] [address] [address] Latia RodriguezPotassium [Moles/Vol]4.8 mmol/LNormal3.5-5.1The [facility] Comment on above:Performed By: #### POCGLUC #### [facility] [address] [address] [address] Latia RodriguezProtein [Mass/Vol]6.7 g/dLNormal6.4-8.2[facility] Comment on above:Performed By: #### POCGLUC #### [facility] [address] [address] [address] Latia RodriguezSodium [Moles/Vol]137 mmol/EZvhkmh859-040Gnw [facility] Comment on above:Performed By: #### POCGLUC #### [facility] [address] [address] [address] Latia RodriguezUrea nitrogen [Mass/Vol]16.0 mg/dLNormal7.0-18.0The [facility] HospitalComment on above:Performed By: #### POCGLUC #### [facility] [address] [place] [address] Dr. Latia Moss nitrogen/Creatinine [Mass ratio]14.8 mg/mgNoSamaritan HospitalComment on above:Performed By: #### POCGLUC #### [facility] [address] [place] [address] Dr. Latia RodriguezPROTIMEon 52-09-7926PIQ Coag (PPP) [Relative time]1.04 {INR} NormalThe [facility] on above:Performed By: #### POCGLUC #### [facility] [address] [place] [address] Dr. Latia Landis GUIDELINESSEE BELOWDayton Children's HospitalCombeaumont hospital on above:Result Comment: DESIRED INR: 2.0 - 3.0 CONDITIONS NOT LISTED BELOW 2.5 - 3.5 FOR PROSTHETIC HEART VALVE REPLACEMENT 2.5 - 3.5 RECURRENT THROMBOSIS Performed By: #### POCGLUC #### [facility] [address] [place] [address] Dr. Latia RodriguezPT Coag (PPP) [Time]11.2 sNormal9.0-11.6The [facility] Comment on above:Performed By: #### POCGLUC #### [facility] [address] [place] [address] Dr. Latia Cunha 19-79-7412jGFK Coag (Bld) [Time]25.8 tPrttcz31.3-36.2[facility] on above:Performed By: #### POCGLUC #### [facility] [address] [place] [address] Dr. Latia RodriguezSALICYLATEon 01-45-1518UABGGLHVPC<2.8Normal<=19.9[facility] on above:Performed By: #### POCGLUC #### [facility] [address] [place] [address] Dr. Latia Garza, HIGH SENSITIVITYon 21-78-1685KNNRUB12.0 pg/mLNormal 4.0-76.1The [facility] HospitalComment on above:Result Comment: CUT-OFF POINTS HAVE BEEN ESTABLISHED BASED ON THE FOURTH UNIVERSAL DEFINITIONS OF MYOCARDIAL INFARCTION. THE UPPER REFERENCE LIMIT (URL) OF TROPONIN, DEFINED THE 99TH PERCENTILE OF cTnI DISTRIBUTION IN A REFERENCE POPULATION, HAS BEEN CONFIRMED THE DECISION THRESHOLD FOR MO DIAGNOSIS.Performed By: #### POCGLUC #### [facility] [address] [place] [address] Dr. Latia Joseph 53-78-6877KBM4.195 uIU/mLNormal0.358-3.740The Fort Hamilton HospitalComment on above:Performed By: #### POCGLUC #### [facility] [address] [place] [address] Dr. Latia RodriguezXR CHEST 1 Von [id number] CHEST 1 VEXAMINATION: XR CHEST 1 V HISTORY: Unspecified fall [...] Electronically authenticated by: KODY MACIEL Date: 2022-07-12 16:32[facility] HospitalCARDIAC RAVEN ADMITon [id number] [Catalytic activity/Vol]47 U/RYjlnuw08-621Ema [facility] HospitalComment on above:Performed By: #### CMREP #### [facility] [address] [place] [address] Dr. Latia Helms.MB [Mass/Vol]1.09 ng/mLNormal<=3.60[facility] Comment on above:Performed By: #### CMREP #### [facility] [address] [place] [address] Dr. Latia RodriguezHSTROP58.7 pg/mLNormal4.0-76.1[facility] - DublinComment on above:Result Comment: CUT-OFF POINTS HAVE BEEN ESTABLISHED BASED ON THE FOURTH UNIVERSAL DEFINITIONS OF MYOCARDIAL INFARCTION. THE UPPER REFERENCE LIMIT (URL) OF TROPONIN, DEFINED THE 99TH PERCENTILE OF cTnI DISTRIBUTION IN A REFERENCE POPULATION, HAS BEEN CONFIRMED THE DECISION THRESHOLD FOR MO DIAGNOSIS.Performed By: #### CMREP #### [facility] [address] [place] [address] Dr. Latia TapiaO22 ng/xWYtopok22-74Yzj [facility] HospitalComment on above: Performed By: #### CMREP #### [facility] [address] [place] [address] Dr. Latia Pressley AUTO DIFFon [id number] #0.1 103/ulNormal0.0-0.1[facility] - DublinComment on above:Performed By: #### POCGLUC #### [facility] [address] [place] [address] Dr. Latia RodriguezBasophils/100 WBC (Bld)1.0 %Normal0.2-2.0[facility] Comment on above:Performed By: #### POCGLUC #### [facility] [address] [place] [address] Dr. Latia Romano #0.4 103/ulNormal0.0-0.7The [facility] HospitalComment on above: Performed By: #### POCGLUC #### [facility] [address] [place] [address] Dr. Latia Silvermanosinophils/100 WBC (Bld)4.0 %Normal0.9-7.0[facility] Comment on above:Performed By: #### POCGLUC #### [facility] [address] [place] [address] Dr. Latia Silvermanrythrocyte distribution width (RBC) [Ratio]13.0 %Uggoyb39.0-15.0 [facility] DublinComment on above:Performed By: #### POCGLUC #### [facility] [address] [place] [address] Dr. Laita RodriguezHematocrit (Bld) [Volume fraction]43.7 %Fbnwln01.0-54.0The [facility] HospitalComment on above:Performed By: #### POCGLUC #### [facility] [address] [address] [address] Latia RodriguezHemoglobin (Bld) [Mass/Vol]14.5 g/sONoaarz30.0-18.0The [facility] HospitalComment on above:Performed By: #### POCGLUC #### [facility] [address] [address] [address] Latia RodriguezIG #0.05 10e3/ulCritically high0.00-0.03[facility] Comment on above:Performed By: #### POCGLUC #### [facility] [address] [address] [address] Latia RodriguezIG %0.5 %Normal0.0-0.5The [facility] HospitalComment on above: Performed By: #### POCGLUC #### [facility] [address] [place] [address] Dr. Latia Maldonado #3.8 103/ulNormal1.2-3.8The [facility] HospitalComment on above:Performed By: #### POCGLUC #### [facility] [address] [address] [address] Latia Hammondsmphocytes/100 WBC (Bld)37.4 %Wiggni87.5-60.0The [facility] HospitalComment on above:Performed By: #### POCGLUC #### [facility] [address] [address] [address] Latia RodriguezMANUAL DIFF REQNONormalThe [facility] HospitalComment on above: Performed By: #### POCGLUC #### [facility] [address] [address] [address] Latia Jackson (RBC) [Entitic mass]29.8 svTufmiu03.9-34.0The [facility] HospitalComment on above:Performed By: #### POCGLUC #### [facility] [address] [address] [address] Latia GarciaHC (RBC) [Mass/Vol]33.2 g/tPWwyxuz97.9-35.2The [facility] HospitalComment on above:Performed By: #### POCGLUC #### [facility] [address] [place] [address] Dr. Latia GarciaV (RBC) [Entitic vol]89.9 aEWljqaw21.0-94.0The [facility] HospitalComment on above:Performed By: #### POCGLUC #### [facility] [address] [place] [address] Dr. Latia Darby #0.8 103/ulNormal0.3-0.8The [facility] HospitalComment on above:Performed By: #### POCGLUC #### [facility] [address] [place] [address] Dr. Latia Schwartzocytes/100 WBC (Bld)7.5 %Normal1.7-12.0[facility] Comment on above:Performed By: #### POCGLUC #### [facility] [address] [place] [address] Dr. Latia Tong #5.0 103/ulNormal1.4-6.5The [facility] HospitalComment on above:Performed By: #### POCGLUC #### [facility] [address] [place] [address] Dr. Latia Rodriguezutrophils/100 WBC (Bld)49.6 %Bilvsh76.0-75.0The [facility] HospitalComment on above:Performed By: #### POCGLUC #### [facility] [address] [place] [address] Dr. Latia Marinolet mean volume (Bld) [Entitic vol]9.0 fLCritically low 9.5-13.5The [facility] HospitalComment on above:Performed By: #### POCGLUC #### [facility] [address] [place] [address] Dr. Latia RodriguezPLT374 103/gcBhuypf955-527Dyk [facility] HospitalComment on above: Performed By: #### POCGLUC #### [facility] [address] [place] [address] Dr. Latia RodriguezRBC4.86 106/ulNormal4.70-6.10The [facility]Com[facility] on above:Performed By: #### POCGLUC #### [facility] [address] [place] [address] Dr. Latia RodriguezWBC10.0 103/ulNormal4.0-11.0The [facility] HospitalComment on above:Performed By: #### POCGLUC #### [facility] [address] [place] [address] Dr. Latia Terry 48-10-5533DLW6.0 ng/mLNormal0.9-2.0[facility] on above:Performed By: #### CMREP #### [facility] [address] [place] [address] Dr. Latia RodriguezPROF 14(COMP METB)on 78-67-2192Oclmcra [Mass/Vol]g/dLNormal 3.4-5.0The [facility] HospitalComment on above:Performed By: #### CMREP #### [facility] [address] [place] [address] Dr. Latia RodriguezAlbumin/Globulin [Mass ratio]1.2 {ratio}NormalThe [facility] HospitalCombeaumont hospital on above:Performed By: #### CMREP #### [facility] [address] [place] [address] Dr. Latia Caldwell [Catalytic activity/Vol]84 U/IDncjqr20-130Jxp [facility] HospitalComment on above:Performed By: #### CMREP #### [facility] [address] [place] [address] Dr. Latia Redding [Catalytic activity/Vol]76 U/LCritically irri81-29Vjy [facility] on above:Performed By: #### CMREP #### [facility] [address] [place] [address] Dr. Latia Corbin gap [Moles/Vol]12.7 mmol/LNormalThe [facility] Comment on above:Performed By: #### CMREP #### [facility] [address] [address] [address] Latia RodriguezAST [Catalytic activity/Vol]27 U/IVxbdyn82-78Bxw [facility] HospitalComment on above:Performed By: #### CMREP #### [facility] [address] [address] [address] Latia RodriguezBilirubin [Mass/Vol]0.3 mg/dLNormal0.2-1.0[facility] Comment on above:Performed By: #### CMREP #### [facility] [address] [place] [address] Dr. Latia RodriguezCalcium [Mass/Vol]8.7 mg/dLNormal8.5-10.1[facility] Comment on above:Performed By: #### CMREP #### [facility] [address] [place] [address] Dr. Latia RodriguezChloride [Moles/Vol]107 mmol/BXryctu72-526Ign [facility] Comment on above:Performed By: #### CMREP #### [facility] [address] [place] [address] Dr. Latia RodriguezCO2 [Moles/Vol]26.5 mmol/YKucngb72.0-32.0[facility] Comment on above:Performed By: #### CMREP #### [facility] [address] [place] [address] Dr. Latia RodriguezCreatinine [Mass/Vol]0.91 mg/dLNormal0.70-1.30The [facility] HospitalComment on above:Performed By: #### CMREP #### [facility] [address] [place] [address] Dr. Latia SilvermanGFR-AF SURINAMESE>60Normal>=60The [facility] HospitalComment on above:Performed By: #### CMREP #### [facility] [address] [place] [address] Dr. Latia SilvermanGFR-NON AF SURINAMESE>60Normal>=60The [facility] HospitalComment on above:Performed By: #### CMREP #### [facility] [address] [address] [address] Latia RodriguezGlobulin (S) [Mass/Vol]2.9 g/dLNoSamaritan HospitalComment on above:Performed By: #### CMREP #### [facility] [address] [address] [address] Latia RodriguezGlucose [Mass/Vol]108 mg/dLCritically ifci47-940Fjr [facility] HospitalComment on above:Performed By: #### CMREP #### [facility] [address] [address] [address] Latia RodriguezPotassium [Moles/Vol]4.2 mmol/LNormal3.5-5.1[facility] Comment on above:Performed By: #### CMREP #### [facility] [address] [address] [address] Latia RodriguezProtein [Mass/Vol]6.3 g/dLCritically low6.4-8.2[facility] DublinComment on above:Performed By: #### CMREP #### [facility] [address] [address] [address] Latia RodriguezSodium [Moles/Vol]142 mmol/PZnzfks457-874Zfu [facility] Comment on above:Performed By: #### CMREP #### [facility] [address] [address] [address] Latia RodriguezUrea nitrogen [Mass/Vol]15.0 mg/dLNormal7.0-18.0The [facility] HospitalComment on above:Performed By: #### CMREP #### [facility] [address] [address] [address] Latia RodriguezUrea nitrogen/Creatinine [Mass ratio]16.5 mg/mgNoSamaritan HospitalCombeaumont hospital on above:Performed By: #### CMREP #### [facility] [address] [address] [address] Latia RodriguezT3, TOTAL (TRIIODOTHYRONINE)on 99-62-7963E7, VUMSF867 ng/dL Critically wwde43-032Wmw [facility] HospitalComment on above:Performed By: #### [id number] #### [facility] [address] [place] [address] Dr. Latia Fischer4 LABCORPon 59-91-6104R9 [Mass/Vol]9.0 ug/dLNormal4.5-12.0The [facility] HospitalComment on above:Performed By: #### CMREP #### [facility] [address] [place] [address] Dr. Latia RodriguezAMYLASEon 53-90-3492Miexngs [Catalytic activity/Vol]44 U/LNormal 25-115The [facility] HospitalComment on above:Performed By: #### [id number] #### [facility] [address] [place] [address] Dr. Latia Burris 25-85-8770Sbthurtfifq peptide B (Bld) [Mass/Vol]122.0 pg/mL Normal<=900.0The [facility] HospitalComment on above:Performed By: #### [id number] #### [facility] [address] [place] [address] Dr. Latia Rae RAVEN 3-6on 58-76-8747MM [Catalytic activity/Vol]58 U/L Cirpvy56-895Pbk [facility] HospitalComment on above:Performed By: #### LACT #### [facility] [address] [place] [address] Dr. Latia Helms.MB [Mass/Vol]1.49 ng/mLNormal<=3.60[facility] Comment on above:Performed By: #### LACT #### [facility] [address] [place] [address] Dr. Latia Garvey57.2 pg/mLNormal4.0-76.1[facility] on above:Result Comment: CUT-OFF POINTS HAVE BEEN ESTABLISHED BASED ON THE FOURTH UNIVERSAL DEFINITIONS OF MYOCARDIAL INFARCTION. THE UPPER REFERENCE LIMIT (URL) OF TROPONIN, DEFINED THE 99TH PERCENTILE OF cTnI DISTRIBUTION IN A REFERENCE POPULATION, HAS BEEN CONFIRMED THE DECISION THRESHOLD FOR MO DIAGNOSIS.Performed By: #### LACT #### [facility] [address] [place] [address] Dr. Latia Helms [Catalytic activity/Vol]65 U/GVbfnvm51-880ZktSelect Medical [facility] Rehabilitation Hospital - DublinComment on above:Performed By: #### DIG #### [facility] [address] [place] [address] Dr. Latia Helms.MB [Mass/Vol]1.30 ng/mLNormal<=3.60[facility] Comment on above:Performed By: #### DIG #### [facility] [address] [place] [address] Dr. Latia Garvey44.2 pg/mLNormal4.0-76.1[facility] on above:Result Comment: CUT-OFF POINTS HAVE BEEN ESTABLISHED BASED ON THE FOURTH UNIVERSAL DEFINITIONS OF MYOCARDIAL INFARCTION. THE UPPER REFERENCE LIMIT (URL) OF TROPONIN, DEFINED THE 99TH PERCENTILE OF cTnI DISTRIBUTION IN A REFERENCE POPULATION, HAS BEEN CONFIRMED THE DECISION THRESHOLD FOR MO DIAGNOSIS.Performed By: #### DIG #### [facility] [address] [place] [address] Dr. Latia CARBAJAL ADMITon 50-44-5858XJ [Catalytic activity/Vol]72 U/L Jltuxs67-646WxeSelect Medical [facility]health Rehabilitation Hospital - DublinComment on above:Performed By: #### [id number] #### [facility] [address] [place] [address] Dr. Latia Helms.MB [Mass/Vol]1.04 ng/mLNormal<=3.60[facility] Comment on above:Performed By: #### [id number] #### [facility] [address] [place] [address] Dr. Latia Garvey23.5 pg/mLNormal4.0-76.1[facility] on above:Result Comment: CUT-OFF POINTS HAVE BEEN ESTABLISHED BASED ON THE FOURTH UNIVERSAL DEFINITIONS OF MYOCARDIAL INFARCTION. THE UPPER REFERENCE LIMIT (URL) OF TROPONIN, DEFINED THE 99TH PERCENTILE OF cTnI DISTRIBUTION IN A REFERENCE POPULATION, HAS BEEN CONFIRMED THE DECISION THRESHOLD FOR MO DIAGNOSIS.Performed By: #### [id number] #### [facility] [address] [address] [address] Latia RodriguezMYO46 ng/rKDwsbhu83-75Vwy [facility] HospitalComment on above: Performed By: #### [id number] #### [facility] [address] [address] [address] Latia Pressley AUTO DIFFon 04-88-9727JNXF #0.1 103/ulNormal0.0-0.1The [facility] HospitalComment on above:Performed By: #### CMREP #### [facility] [address] [place] [address] Dr. Latia RodriguezBasophils/100 WBC (Bld)0.6 %Normal0.2-2.0[facility] Comment on above:Performed By: #### CMREP #### [facility] [address] [place] [address] Dr. Jeffery ChangEO #0.4 103/ulNormal0.0-0.7The [facility] HospitalComment on above: Performed By: #### CMREP #### [facility] [address] [place] [address] Dr. Latia Silvermanosinophils/100 WBC (Bld)4.3 %Normal0.9-7.0[facility] Comment on above:Performed By: #### CMREP #### [facility] [address] [place] [address] Dr. Latia Silvermanrythrocyte distribution width (RBC) [Ratio]12.7 %Dxmjvh28.0-15.0 The [facility] HospitalComment on above:Performed By: #### CMREP #### [facility] [address] [place] [address] Dr. Latia RodriguezHematocrit (Bld) [Volume fraction]42.7 %Xxbbxq89.0-54.0The [facility] HospitalComment on above:Performed By: #### CMREP #### [facility] [address] [place] [address] Dr. Latia RodriguezHemoglobin (Bld) [Mass/Vol]14.3 g/pKDovwvz78.0-18.0The [facility] HospitalComment on above:Performed By: #### CMREP #### [facility] [address] [place] [address] Dr. Latia Bhat #0.05 10e3/ulCritically high0.00-0.03[facility] Comment on above:Performed By: #### CMREP #### [facility] [address] [place] [address] Dr. Latia Bhat %0.5 %Normal0.0-0.5The [facility] HospitalComment on above: Performed By: #### CMREP #### [facility] [address] [place] [address] Dr. Latia Maldonado #3.4 103/ulNormal1.2-3.8The [facility] HospitalComment on above:Performed By: #### CMREP #### [facility] [address] [place] [address] Dr. Latia Eisenberghocytes/100 WBC (Bld)36.4 %Ioifew07.5-60.0The [facility] HospitalComment on above:Performed By: #### CMREP #### [facility] [address] [place] [address] Dr. Latia FullerUAL DIFF REQNONormalThe [facility] HospitalComment on above: Performed By: #### CMREP #### [facility] [address] [place] [address] Dr. Latia Garcia (RBC) [Entitic mass]29.7 nsXlqjce15.9-34.0The [facility] HospitalComment on above:Performed By: #### CMREP #### [facility] [address] [place] [address] Dr. Latia Garcia (RBC) [Mass/Vol]33.5 g/kGVbpeov85.9-35.2The [facility] HospitalComment on above:Performed By: #### CMREP #### [facility] [address] [place] [address] Dr. Latia GarciaV (RBC) [Entitic vol]88.8 hWHeihaa72.0-94.0The [facility] HospitalComment on above:Performed By: #### CMREP #### [facility] [address] [place] [address] Dr. Latia Darby #0.8 103/ulNormal0.3-0.8The [facility] HospitalComment on above:Performed By: #### CMREP #### [facility] [address] [place] [address] Dr. Latia Schwartzocytes/100 WBC (Bld)8.6 %Normal1.7-12.0[facility] Comment on above:Performed By: #### CMREP #### [facility] [address] [place] [address] Dr. Latia Tong #4.7 103/ulNormal1.4-6.5The [facility] HospitalComment on above:Performed By: #### CMREP #### [facility] [address] [place] [address] Dr. Latia Rodriguezutrophils/100 WBC (Bld)49.6 %Ajxiec10.0-75.0The [facility] HospitalComment on above:Performed By: #### CMREP #### [facility] [address] [place] [address] Dr. Latia Coffey mean volume (Bld) [Entitic vol]8.9 fLCritically low 9.5-13.5The [facility] HospitalComment on above:Performed By: #### CMREP #### [facility] [address] [place] [address] Dr. Latia RodriguezPLT417 103/qvBqfwdv156-600Uch [facility] HospitalComment on above: Performed By: #### CMREP #### [facility] [address] [place] [address] Dr. Latia RodriguezRBC4.81 106/ulNormal4.70-6.10The [facility] HospitalComment on above:Performed By: #### CMREP #### [facility] [address] [place] [address] Dr. Latia RodriguezWBC9.5 103/ulNormal4.0-11.0The [facility] HospitalComment on above: Performed By: #### CMREP #### [facility] [address] [place] [address] Dr. Latia RodriguezCULTURE URINEon 99-00-3195OBNRBKJ URINECulture Observations: NO GROWTH.NormalThe [facility] HospitalComment on above:Performed By: #### CMREP #### [facility] [address] [place] [address] Dr. Latia RodriguezCovid-19 PCR ([facility])on 59-87-8183OIZC-CoV-2 (COVID-19) RNA KATHARINA+probe Ql (Unsp spec)Not detectedNormalNOT DETECTEDThe [facility] Comment on above:Result Comment: When diagnostic testing is negative, the [...] for this test is supported by the [place] of Health and Human Service's declaration that circumstances exist to justify the emergency use of in vitro diagnostics for the detection and/or diagnosis of the virus that causes COVID-19. This EUA will remain in effect for the duration of the COVID-19 declaration justifying emergency of IVDs, unless it is terminated or revoked by the FDA (after which the test may no longer be used).Performed By: #### DIG #### [facility] [address] [place] [address] Dr. Latia RodriguezDRUG SCREEN RAPID (URINE)on [id number]xcrVCEXTMKY The [facility] HospitalComment on above:Performed By: #### LACT #### [facility] [address] [place] [address] Dr. Latia RodriguezBARNegativeNormalNEGATIVEThe [facility] HospitalComment on above: Performed By: #### LACT #### [facility] [address] [place] [address] Dr. Latia RodriguezBUPNegativeNormalNEGATIVESelect Medical [facility] - DublinComment on above: Performed By: #### LACT #### [facility] [address] [place] [address] Dr. Latia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 (BldA) [Mass fraction]94 %Anthony Juan MD Work Phone: [facility]02-04-2025 11:30-0500Systolic blood lsejziik232 mm[Hg]Anthony Juan MD Work Phone: [facility]01-09-2025 12:55-0500Body rnelhz45.39 kgSaanand Zhong RN ORTHO Work Phone: [facility] LouisAyhyucvlmf25-38-7926 12:55-0500Diastolic blood zajyiqgk90 mm[Hg]Wendy Zhong RN ORTHO Work Phone: [facility] LouisLquzzgrdpo06-33-6407 12:55-0500Heart rate88 /min Wendy Zhong RN ORTHO Work Phone: [facility] LouisBgwtowjxaa43-97-3407 12:55-2522UpJ9% (BldA) [Mass fraction]96 %Wendy Zhong RN ORTHO Work Phone: [facility] LouisAmiufnttjb70-18-4146 12:55-0500Systolic blood diboamli671 mm[Hg]Wendy Zhong RN ORTHO Work Phone: [facility] LouisUfowemxjpc29-31-9132 13:40-0500Blood Pressure LocationMichael NILL [phone]-N[facility]aroShel[facility] [place] 09-23-2024 13:40-0500Diastolic blood rzntqcxe29 mm[Hg]Edward NILL [phone]-BwbrpShelby [facility] Hospital [facility] [place] 09-23-2024 13:40-0500Heart rate72 /minMichael NILL [phone]-OxgmzShelby [facility] Hospital [facility] [place] 09-23-2024 13:40-0500Respiratory rate16 /minMichael NILL [phone]-LrxycShelby Memorial Hospital [facility] [place] 09-23-2024 13:40-0500Systolic blood nmnlturf121 mm[Hg]Edward NILL 394-4390Utbjnk-BciagSelect [facility] [place] 09-02-2024 10:20-0500Blood Pressure LocationKathy Lue [facility]12-18-2024 10:20-0500Body cnrlkjpyjnt24.6 [degF]Varsha Lue [facility]12-18-2024 10:20-0500Diastolic blood mm[Hg]Varsha Lue [facility]12-18-2024 10:20-0500Heart rate74 /minKathy Lue [facility]12-18-2024 10:20-0500Respiratory rate18 /minKathy Lue [facility]12-18-2024 10:20-0500Systolic blood igglyngp433 mm[Hg]Varsha Lue [facility]12-11-2024 09:31-0500Body kynqsv085.5 Urbano Chappell MD Work Phone: [facility]12-11-2024 09:31-0500Body mass index (BMI) [Ratio]29.95 kg/c8VatpfkArthur Chappell MD Work Phone: [facility]12-11-2024 09:31-0500Body qgumne89.3 kgArthur Chappell MD Work Phone: [facility]12-11-2024 09:31-0500Diastolic blood ijpdanga18 mm[Hg]Arthur Chappell MD Work Phone: [facility]12-11-2024 09:31-0500Heart rate 71 /minArthur Chappell MD Work Phone: [facility]12-11-2024 09:31-4817NoW3% (BldA) [Mass fraction]96 %Arthur Chappell MD Work Phone: [facility]12-11-2024 09:31-0500Systolic blood oyrcuoyu066 mm[Hg]Arthur Chappell MD Work Phone: 1([phone])337-[address] [place], [place] 2455811-04-2024 12:28-0500Body mputry58.12 kgChristopher Yolanda DO Work Phone: [facility] LouisQsnlclaomd38-38-9459 12:28-0500Diastolic blood zjjedvfq47 mm[Hg]Dominiker Yolanda DO Work Phone: [facility] LouisLrhpzplxfh42-89-0432 12:28-0500Heart rate73 /min Christshaier Yolanda DO Work Phone: [facility] LouisThqbyvyopi30-55-4243 12:28-8044MwT9% (BldA) [Mass fraction]94 %Christshaier Yolanda DO Work Phone: [facility] LouisSfxpzbexyj05-60-6722 12:28-0500Systolic blood zvezipvp092 mm[Hg]Dominiker Yolanda DO Work Phone: [facility] LouisImxlmfrvmn80-62-5340 11:43-0400Body eydppt910.5 cmMischell Dolly CLOTHES IRONER-DESKTOP SUPPORT TECHNICIAN Work Phone: [facility]08-08-2024 11:43-0400Body mass index (BMI) [Ratio]27.79 kg/h8Zywdfway Dolly CLOTHES IRONER-DESKTOP SUPPORT TECHNICIAN Work Phone: 1([phone])564-[address] [place], [place] 2455808-08-2024 11:43-0400Body .95 kgMischell Dolly CLOTHES IRONER-DESKTOP SUPPORT TECHNICIAN Work Phone: 1(852)452-[address] [place], [place] 2455808-08-2024 11:43-0400Diastolic blood psciyyfk12 mm[Hg]Jude Greensser CLOTHES IRONER-DESKTOP SUPPORT TECHNICIAN Work Phone: 1(578)111-[address] [place], [place] 2455808-08-2024 11:43-0400Heart rate 84 /minJude Alberto CLOTHES IRONER-DESKTOP SUPPORT TECHNICIAN Work Phone: [facility]08-08-2024 11:43-7930FpU7% (BldA) [Mass fraction]99 %Jude Alberto CLOTHES IRONER-DESKTOP SUPPORT TECHNICIAN Work Phone: [facility]08-08-2024 11:43-0400Systolic blood mm[Hg]Jude Alberto CLOTHES IRONER-DESKTOP SUPPORT TECHNICIAN Work Phone: [facility]02-23-2024 10:16-0500Body kucgvz851.5 cmRcyn Ko MD Work Phone: [facility]02-23-2024 10:16-0500Body mass index (BMI) [Ratio]28.17 kg/q0GscyrhChristy Ko MD Work Phone: [facility]02-23-2024 10:16-0500Body pvocqs89.85 kgChristy Ko MD Work Phone: [facility] [employer] Eppxdx77-89-0493 10:16-0500Diastolic blood khulisef08 mm[Hg]Christy Ko MD Work Phone: [facility]02-23-2024 10:16-0500Heart rate 97 /minChristy Ko MD Work Phone: [facility]02-23-2024 10:16-4511DzG7% (BldA) [Mass fraction]95 %Christy Ko MD Work Phone: [facility]02-23-2024 10:16-0500Systolic blood ovesqqpy901 mm[Hg]Christy Ko MD Work Phone: [facility]02-06-2024 11:22-0500Body nlsinpqshxq50.81 [degF]Arie Foley MD Work Phone: [facility] [employer] Qfisgn41-69-9356 11:22-0500Diastolic blood qohkuvyf74 mm[Hg]Arie Foley MD Work Phone: [facility]02-06-2024 11:22-0500Heart rate 83 /minArie Foley MD Work Phone: [facility]02-06-2024 11:22-0500 Respiratory rate16 /minArie Foley MD Work Phone: [facility]02-06-2024 11:22-6237KzJ8% (BldA) [Mass fraction]97 %Arie Foley MD Work Phone: [facility]02-06-2024 11:22-0500Systolic blood dzcgjyyf17 mm[Hg]Arie Foley MD Work Phone: [facility]02-06-2024 07:45-0500Body ocjbtf847.5 Jarred Foley MD Work Phone: [facility]02-06-2024 07:45-0500Body mass index (BMI) [Ratio]27.25 kg/m2Arie Foley MD Work Phone: [facility]02-06-2024 07:45-0500Body zvuffx36.59 kgArie Foley MD Work Phone: [facility]08-18-2023 10:59-0400Diastolic blood pgtyaknn055 mm[Hg]Kathy NOEL 360-3232Ttyemc-YyevyUniversity Hospitals [facility] Center 2023 10:59-0400Mean blood hpouvsce119 mm[Hg]Kathy NOEL 260-3754Sddlzh-BsmnnUniversity Hospitals [facility] Medical Center 2023 10:59-0400Systolic blood psomdylo563 mm[Hg]Kathy NOEL 293-7590Jwzeja-WggcyUniversity Hospitals [facility] Center 08-18-2023 10:50-0400Blood Pressure LocationKathy NOEL 957-5513Buxate-HuguuUniversity Hospitals Cleveland Medical Center 2023 10:50-0400Body vuxgnwhyprd84.24 [degF]Kathy NOEL 453-2099Lytrek-LljrkUniversity Hospitals [facility] Center 2023 10:50-0400Diastolic blood tvtoshxd59 mm[Hg]Kathy NOEL 123-1635Cpwuyv-Pdgpt[address] [place] [address] 2023 10:50-0400Heart rate95 /minKathy NOEL 003-4007Kenqhz-ZonobUniversity Hospitals Cleveland Medical Center 2023 10:50-0400Respiratory rate16 /minKathy NOEL 686-9563Ibblwi-CuinbUniversity Hospitals [facility] Center 2023 10:50-5217JxY3% (BldA) [Mass fraction]98 %Kathy NOEL 356-0450Nmuufe-Uoixb[address] [place] [address] 2023 10:50-0400Systolic blood rdvzpoec798 mm[Hg]Kathy [employer] 851-4744Whfzyk-SthuuUniversity Hospitals Cleveland Medical Center 12-11-2022 11:10-0400Blood Pressure LocationRobeduar [employer] [facility]03-28-2023 11:10-0400Diastolic blood rukokbbh68 mm[Hg]Christy RICE [facility]03-28-2023 11:10-0400Heart rate93 /minRobert RICE [facility]03-28-2023 11:10-0400Respiratory rate16 /minRobert RICE [facility]03-28-2023 11:10-0400Systolic blood mm[Hg]Christy VALDES [facility]03-20-2023 17:46-0400Blood Pressure LocationKathy NOEL 403-0473Masexk-Catzt[address] [place] [address] 12-03-2022 17:46-0400Body slgyuoezmlm36.16 [degF]Kathy SADIE 130-6464Ulvehz-Lvocb[address] [place] [address] 12-03-2022 17:46-0400Diastolic blood mm[Hg]Kathy NOEL 153-6160Eguaom-Gptdr[address] [place] [address] 12-03-2022 17:46-0400Heart fgco922 /Dipti NOEL 785-5324Aenpgr-Ocwww[address] [place] [address] 12-03-2022 17:46-0400Respiratory rate16 /Dipti NOEL 068-6651Gcxnxm-Gctvb[address] [place] [address] 12-03-2022 17:46-9849OwQ4% (BldA) [Mass fraction]98 %Kathy SADIE 624-2384Nogqsb-XlwwiUniversity Hospitals Cleveland Medical Center 12-03-2022 17:46-0400Systolic blood uvdzxedp05 mm[Hg]Kathy SADIE 201-3717Vctjnt-YopttUniversity Hospitals [facility] 11-21-2022 13:28-0500Diastolic blood haowgdkx523 mm[Hg]Ernesto Kelly [facility]03-08-2023 13:28-0500Heart rate80 /Miracle Kelly [facility]03-08-2023 13:28-0500 Systolic blood mm[Hg]Ernesto Kelly [facility]03-08-2023 10:56-0500 Diastolic blood vcjyfytk077 mm[Hg]Ernesto Lorenzerson [facility]03-08-2023 10:56-0500Heart rate80 /minErnesto Kelly [facility]03-08-2023 10:56-0500 Systolic blood lefinwwt895 mm[Hg]Ernesto Robin [address]03-08-2023 06:52-0500Blood Pressure LocationRycain Kelly [address]03-08-2023 06:52-0500Body mvfyecqcnvx22.88 [degF]Ernesto Kelly [address]03-08-2023 06:52-0500 Diastolic blood bjbpnfyy741 mm[Hg]Ernesto Robin [address] [place], [place] 9935003-08-2023 06:52-0500Heart rate88 /minErnesto Robin [address] [place], [place] 7860503-08-2023 06:52-0500 Respiratory rate16 /minErnesto Kelly [address] [place], [place] 9935003-08-2023 06:52-3807GkJ7% (BldA) [Mass fraction]97 %Ernesto Robin [address] [place], [place] 7860503-08-2023 06:52-0500 Systolic blood bwynpzzf202 mm[Hg]Ernesto Herrerageorge [facility]01-17-2023 13:55-0500Blood Pressure LocationMichael NILL [facility] Surgery Zqcbscjx41-70-0235 13:55-0500Diastolic blood sczdguww74 mm[Hg]Edward NILL [facility] Surgery Smjhcpnl65-38-9992 13:55-0500Heart rate 72 /minMichael NILL [facility]01-17-2023 13:55-0500 Respiratory rate16 /minMichael NILL [facility] Surgery Hxcvcodt99-24-2597 13:55-0500Systolic blood jjnadgwn914 mm[Hg]Edward NILL [facility]11-22-2022 13:17-0500Blood Pressure LocationRycain Kelly [facility]11-22-2022 13:17-0500 Diastolic blood egqunvcv71 mm[Hg]Ernesto Kelly [facility]11-22-2022 13:17-0500Heart rate96 /minErnesto Kelly [facility]11-22-2022 13:17-0500 Respiratory rate18 /minErnesto Kelly [facility]11-22-2022 13:17-1551LpI3% (BldA) [Mass fraction]98 %Ernesto Kelly [facility]11-22-2022 13:17-0500 Systolic blood ohtxpptt875 mm[Hg]Ernesto Kelly [facility]09-28-2022 14:17-0400Blood Pressure LocationMichael NILL [facility] Surgery Xqavngxk86-47-9978 14:17-0400Diastolic blood tptzgooz22 mm[Hg]Edward NILL [facility] Surgery Pnouxalg12-14-5969 14:17-0400Heart rate 92 /minMichael NILL [facility] Surgery Dieodmtz59-45-3129 14:17-0400 Respiratory rate16 /minMichael NILL [facility] Surgery Swdtsgaz25-48-7685 14:17-0400Systolic blood tqsmlbua841 mm[Hg]Edward URBAN [facility] Surgery Opkfhrdi06-82-0348 11:25-0400Blood Pressure LocationKathy SADIE 695-2971Wkzjyj-MzzvrUniversity Hospitals [facility] Center 05-14-2022 11:25-0400Body jclbjfnkout14.34 [degF]Kathy SADIE 828-8500Solmqq-JtzwfUniversity Hospitals [facility] Medical Center 05-14-2022 11:25-0400Diastolic blood mm[Hg]Kathy SADIE 290-8299Meqihe-Hzlxy[address] [place] [address] 05-14-2022 11:25-0400Heart ijde937 /Dipti NOEL 625-5818Ugdukq-Pmmcp[address] [place] [address] 05-14-2022 11:25-0400Respiratory rate16 /Dipti NOEL 552-3400Qazfwn-Jubam[address] [place] [address] 05-14-2022 11:25-0400Systolic blood wsesikyh569 mm[Hg]Kathy [employer] 535-0822Mymroq-NtpryUniversity Hospitals Cleveland Medical Center Encounters Encounter DateEncounter TypeCare ProviderFacilityStart: 55-27-3953wfisftkyrt Ahsan BanksFacility:FT evueStart: 91-31-6290mgloaocffgHhkdr M. Lue Facility:EU tart: 07-19-2025 End: 13-93-4797tvxuvohzleUDH SHELLY A LEHMANNFacility:FT BellevueStart: 07-13-2025 End: 02-93-4692btkoctliclNqbwey TannaFacility:EU rt: 07-13-2025 End: 84-62-1664Dxwajgo encounter procedureSydney Jasso [facility] start: 06-29-2025 End: 56-60-3775oftiwewzauQqcohr TannaFacility:EU BellevueStart: 06-29-2025 End: 22-75-2223Ozudmsz encounter procedureMalindabharath Louisa [facility] start: 06-15-2025 End: 92-84-0544sfykutozucRdhih ElodiaSenthil LueFacility:EU BellevueStart: 06-15-2025 End: 51-60-1675Nutjqoe encounter procedureLauranii CliftonSenthil Ayerstamela [facility] start: 05-18-2025 End: 98-60-7812iugertczfeCimnh ElodiaSenthil LueFacility:EU BellevueStart: 05-18-2025 End: 17-56-4643Esflpgm encounter procedureVarsha ElodiaSenthil Ayerstamela [facility] start: 05-05-2025 End: 98-13-2744ysdvrmujzrBqymu MSenthil LueFacility:EU BellevueStart: 05-05-2025 End: 66-60-3794Yprkoxf encounter procedureVarsha Peralta [facility] start: 03-30-2025 End: 25-58-3007ExwmgoEseajcelYoselyn Alberto APRN-DESKTOP SUPPORT TECHNICIAN Work Phone: [facility] CardiologyComment on above:Med RefillStart: 03-25-2025 End: 38-66-7769znyxuwmslxXPG SHELLY A LEHMANNFacility:FTMCStart: 02-23-2025 End: 38-16-1139rjvqrlqpqvLgyuzw E. RossFacility:FT FM BellevueStart: 02-10-2025 End: 90-43-1492enhwruyuekBftyr M. LueFacility:EU BellevueStart: 02-10-2025 End: 29-62-3106Uhaflrk encounter Satish Peralta [facility] Rfanck start: 01-25-2025 End: 71-94-3932thwpmfzgvcQgdmh M. LueFacility:FTMCStart: 01-25-2025 End: 38-96-7394Lvmnbwy encounter Satish Peralta [facility] Start: 01-13-2025 End: 99-63-5619Uehsme outpatient visit 25 minutesArthur Chappell MD Work Phone: [facility] CardiologyComment on above: Paroxysmal atrial fibrillation (CMS-HCC) (Primary Dx)Start: 01-12-2025 End: 41-65-1394Ysequdryo encounterAnabel Muro [facility]ITALProMedica Physicians CardiologyStart: 01-06-2025 End: 76-56-0471ngffjlkwauSubui M. LueFacility:FTMCStart: 01-06-2025 End: 01-67-8090Kzn Drop offVarsha Peralta [facility] Start: 01-06-2025 End: 73-96-8936yqeynjhdjdIsbde M. LueFacility:EU BellevueStart: 11-23-2024 End: 92-43-8420smteayteknHaayjx E. RossFacility:FT BellevueStart: 11-11-2024 End: 10-78-0937slloqsebwnIXULOWSBlanchard Valley Health Systemtart: 11-02-2024 End: 97-49-9304cuhgucbpxnJRNJAUNJ.W. Ruby Memorial Hospitaltart: 10-22-2024 End: 53-68-4144avxrhvslvqCefkzl E. RossFacility:FT BellevueStart: 10-20-2024 End: 21-45-5921Nwjpuf outpatient visit 25 minutesRadha Drummond MD Work Phone: [facility] Physicians CardiologyComment on above:Preop cardiovascular exam (Primary Dx); Coronary artery disease involving [place] coronary artery of [place] heart without angina pectoris; Paroxysmal atrial fibrillation (CMS-HCC); Pulmonary emphysema, unspecified emphysema type (CMS-HCC); Hyperlipemia, mixedStart: 10-20-2024 End: 05-24-5789Wpgkdqd encounter Viki Drummond MD Work Phone: [facility] SystemStart: 10-19-2024 End: 42-78-9008Riizpqnfr encounterAnabel Muro [facility] Physicians CardiologyStart: 10-19-2024 End: 76-73-4298wpgjrszmwqQsigib E. RossFacility:[facility] evueStart: 10-09-2024 End: 35-37-5902Lydrsaocj encounterAndrea DE LA CRUZLane Regional Medical Center Physicians CardiologyComment on above:Preop ClearanceStart: 10-07-2024 End: 48-69-1239hmspeyizfhQLKYFUB [facility] Hospitaltart: 09-24-2024 End: 24-26-6763Fqjtklenrique Zhong RN ORTHO Work Phone: aNA ELIJAHUEStart: 09-24-2024 End: 62-43-4148Tgvanl Sharifa Zhong RN ORTHO Work Phone: aNA BELLEVUEStart: 09-24-2024 End: 97-06-7290Bjxlgc outpatient visit 25 minutesWendy Zhong RN ORTHO Work Phone: aNA ELIJAHUEComment on above:Memory impairment (Primary Dx); PTSD (post-traumatic stress disorder) (CMS/HCC); Anxiety and depression (CMS/HCC); Anisocoria; Complex regional pain syndrome type 1, affecting unspecified siteStart: 09-24-2024 End: 89-22-0678sjghbwurtwIKJEO CARROLLNot AvailableStart: 09-23-2024 End: 64-20-3994rmmqmdtzduZvodxkw R NILLFacility:GS BellevueStart: 09-23-2024 End: 50-39-0693Juwmplb encounter procedureMichael R NILL [phone]-TgzygSelect Medical [facility]ty [facility] [place] Start: 09-02-2024 End: 07-85-1901jnqvjcveoyGlrbrr E. RossFacility:EU tart: 09-02-2024 End: 08-69-1500Jjsluht encounter procedureVarsha Peralta [facility] start: 08-26-2024 End: 76-68-0390Hypwayqhy encounterMarily Faria Physicians CardiologyComment on above:EP Surgery ( PVI/Typical)Ep Surgery ( PT Education) Start: 08-26-2024 End: 78-92-8354Ecxlfe outpatient new 60 minutesMischell Dolly CLOTHES IRONER-DESKTOP SUPPORT TECHNICIAN Work Phone: [facility] CardiologyComment on above: Paroxysmal atrial fibrillation ([facility]-HCC)Start: 08-25-2024 End: 52-99-9768Uwxbdwxgh encounterAnabel Muro CMAProMedica Physicians CardiologyStart: 07-20-2024 End: 34-12-8737Alxeix flowsheetChristopher Yoladna DO Work Phone: noMS [facility]TEStart: 07-20-2024 End: 21-73-3214Tbadtr flowsheetChristopher Yolanda DO Work Phone: noMS [facility] R[facility]TEStart: 07-20-2024 End: 03-26-3925ksehsmmpscIsloxq E. RossFacility:FTMCStart: 07-20-2024 End: 39-72-1650Fdi Drop Itzel Hull [facility] Start: 07-20-2024 End: 17-38-5874Nwewyt outpatient visit 25 minutesChristopher Guerrero DO Work Phone: NOSELECT [facility] ROUTEComment on above:Memory impairment (Primary Dx); Complex regional pain syndrome type 1, affecting unspecified site; History of traumatic brain injuryStart: 07-20-2024 End: 97-28-5068dsphgwxfyaVPTHTHRHFAY YOLANDANot AvailableStart: 05-14-2024 End: 10-40-6227WhzoecSfepuql Schultz LPMcNairy Regional Hospital Physicians CardiologyComment on above:Med RefillStart: 04-23-2024 End: 49-60-3458Jrvzjwqzb encounterNadja PraterMedifl Physicians Cardiology Start: 04-23-2024 End: 39-57-2609Pnzwun outpatient visit 25 minutesJude BURNS Work Phone: [facility] Phys[facility] CardiologyComment on above: Coronary artery disease involving [place] coronary artery of [place] heart without angina pectoris (Primary Dx); Paroxysmal atrial fibrillation (CMS-HCC); Hyperlipemia, mixedStart: 04-02-2024 End: 65-89-0240Erwjxfmkfh and management of inpatientDAVID [facility] Hospitaltart: 04-01-2024 End: 81-46-7216Srzahpazb encounterAndrea DE LA CRUZLane Regional Medical Center Physicians CardiologyComment on above:Cardiac Medication RefillsStart: 02-13-2024 End: 91-81-9229beykvwlvyvCuuock E. RossFacility:FT FM BellevueStart: 01-14-2024 End: 34-20-2527umucswucloMvtmbg E. RossFacility:FT FM BellevueStart: 01-10-2024 ambulatoryKathy LueFacility:FT FM BellevueStart: 11-08-2023 End: 43-83-3261Dilynb outpatient visit 25 minutesChristy Ko MD Work Phone: [facility]icians CardiologyComment on above: Paroxysmal atrial fibrillation (CMS-HCC) (Primary Dx); Coronary artery disease involving [place] coronary artery of [place] heart without angina pectorisStart: 15-15-1198Ibruiuclu encounterAnabel Goldberg [facility] CardiologyStart: 25-82-8467Swrre abstractingChristy Ko MD Work Phone: [facility] CardiologyStart: 10-30-2023 End: 93-28-1939rcfqxcwsudVhoem M. LueFacility:EU BellevueStart: 10-30-2023 End: 60-59-6399Tgemndk encounter procedureVarsha Peralta [facility] start: 10-20-2023 End: 56-23-8227Qgxnrnnza department patient visitErnesto Leon MD Work Phone: [facility] Comment on above:Atrial fibrillation with rapid ventricular response (CMS-HCC) (Primary Dx); Paroxysmal atrial fibrillation (CMS-HCC)Start: 2023 End: 35-75-9486Minngib encounter Je NOEL [phone]-BrwjtRiverside Methodist Hospital Medicine [place] Start: 12-11-2022 End: 20-11-9836Uwaijcf encounter procedureChristy VALDES [facility] Start: 12-05-2022 End: 7185Dro-admission assessmentLizy DUVAL [facility] Start: 12-03-2022 End: 79-35-7615Ipwvezn encounter Je NOEL [phone]-YmkzwRiverside Methodist Hospital Medicine [place] Start: 11-21-2022 End: 14-19-6267Npuallomk to same day surgery Micah Kelly [facility] Start: 11-19-2022 End: 37-90-0303dpkhzwybxkFN DOCTOR MISCFacility:W1Djvxk: 10-24-2022 End: 54-34-8203evhbbionpxSU EDWARD NdiayeFacility:W1Qiiez: 02-00-4518pmduclyuqb DR EDWARD URBAN .Facility:O8Kyfgw: 10-02-2022 End: 84-28-4111Rzkeeia encounter procedureMichael R NILL General Surgery Nill/Said Franck Start: 08-07-2022 End: 14-10-8039Uccjxsi encounter Franki Kelly [facility] Start: 07-12-2022 End: 00-65-8335Lrtynpybgl and management of inpatientDR DOCTOR MISCFacility:H1 Start: 07-11-2022 End: 76-68-6354wbzhzualkcJOVIT CALLISONFacility:E9Mjsdk: 06-13-2022 End: 03-04-3326Onttswj encounter procedureMichael R NILL General Surgery Nill/Said [place] Start: 88-01-3073eakqhvmylfUK MELVIN DILIPMi .Facility:H1 Start: 05-26-2022 End: 95-63-4062wgmgqzbznuKV DOCTOR MISCFacility:W3Auahu: 05-14-2022 End: 97-95-4523Wde Drop offKathy NOEL [facility] Start: 05-14-2022 End: 63-80-6843Srgzyfa encounter Je NOEL [phone]-HturqSelect [facility] [place] Start: 80-35-0544bargeatsrjMR KATHY NOELFacility:H1 Procedures DateProcedureProcedure DetailPerforming ClinicianStart: 18-70-3572Narfztbixf Varsha Peralta Start: 40-08-2308Ntx routine ecg w/least 12 lds w/i&r Arthur Chappell MD Work Phone: Start: 00-85-8080Lob routine ecg w/least 12 lds w/i&r Anthony Juan MD Work Phone: Start: 52-44-8917Wacfv depression screening assessment Andrea Machado RNStart: 25-94-5259Rxhuddmgd structure (morphologic abnormality)Varsha Peralta Start: 01-02-6068Myeprktatx spect multiple studies Anuel Garrido MD Work Phone: Start: 35-61-9746Qkugwdbhqdxxi metabolic panel Aleida Almaraz [employer] IRONER-DESKTOP SUPPORT TECHNICIAN Work Phone: Start: 83-13-9555Wifx tthrc r-t 2d w/wom-mode compl spec&colr dMlennox Garrido MD Work Phone: Start: 50-92-3874Ammzh of troponin quantitative Anuel Garrido MD Work Phone: Start: 42-18-2191Muixmuoiyt exam chest single viewRycain Leon MD Work Phone: Start: 60-02-9092Ayscr metabolic panel calcium total Ernesto Di Leon MD Work Phone: Start: 10-20-2023 End: 20-07-4991Bfdd screen quantitative digoxin totalErnesto Leon MD Work Phone: Start: 62-94-5869Pfp routine ecg w/least 12 lds trcg only w/o i&rRwalter Leon MD Work Phone: Start: 14-21-4063Jclymcj of percutaneous transluminal coronary angioplastyKathy NOEL Start: 14-76-7390Eawtjilusmmv coronary intervention of anterior descending branch of left coronary arteryKathy NOEL comment on above:PCI of mid LAD & proximal LADStart: 03-47-1833KtvygzfhrnnFnzag BROWN Start: 42-51-3342Ugofj removal of genital wartsKathy NOEL Start: 94-98-3505ondsfp extractionsKathy NOEL asthma (disorder)Varsha Peralta Atrial fibrillation (disorder)Varsha Peralta Cardiac ablation for atrial fibrillationVarsha Peralta Cardiac catheter (physical object)Kathy NOEL cardiac catheterizationSamuel Valerio Comment on above:March 2024 no stentsMarch hronic obstructive lung disease (disorder)Varsha Peralta [phone]-oragq blocksKathy NOEL Hyperlipidemia (disorder)Varsha Peralta Hypertensive disorder, systemic arterial (disorder) Varsha Peralta Percutaneous coronary intervention of anterior descending branch of left coronary arteryErnesto Kelly Comment on above:PCI of mid LAD & proximal LAD Reconstruction of facial bonesMichael NILL Stented artery (finding)Varsha Peralta Vasectomy uni/bi spx w/postop semen examsKathy NOEL Plan of Treatment DateCare ActivityDetailAuthorStart: 76-52-7532Tlpme BMI ScreeningAdult BMI ScreeningProGalion Hospitalca Health SystemStart: 52-67-3910Ezqyqwd ScreeningTobacco ScreeningNationwide Children's Hospitalca [facility] SystemStart: 13-02-6615Soxpa BMI ScreeningAdult BMI ScreeningNationwide Children's Hospitalca [facility] SystemStart: 72-01-1320Hgrbjfw ScreeningTobacco ScreeningNationwide Children's Hospitalca [facility] SystemStart: 54-26-0039Hfbzs BMI ScreeningAdult BMI ScreeningNationwide Children's Hospitalca [facility] SystemStart: 36-67-9738Crkiyln ScreeningTobacco ScreeningCleveland Clinic [facility]on Hospital SystemStart: 73-63-3369mkokdpssslTciwaurrobSbgsnaav:EU BellevueStart: 03-12-6799nytomapycqYivxzddvysTgfmotpv:EU BellevueStart: 28-93-4262aerdzidafgMbtrxnmowwVzogneir:Formerly [facility] HospitalevueStart: 07-14-2025 End: 66-67-3353Qopopxy encounter luwnfbdwa50/29/2025 2:30 PM EDT Office Visit [facility] [address] [place] [address] Arthur Chappell MD [address] [place] [address] [facility]iologyStart: 05-17-2025 Influenza vaccinationInfluenza VaccineCleveland Clinic Avon Hospital SystemStart: 04-23-2025 Adult BMI ScreeningAdult BMI ScreeningCleveland Clinic Avon Hospital SystemStart: 04-23-2025 Tobacco ScreeningTobacco ScreeningCleveland Clinic [facility]on Hospital SystemStart: 01-13-2025 End: 03-41-2370Ymwxgfy encounter udldzjdwl55/30/2025 2:45 PM EDT Office Visit [facility] [address] [place] [address] Arthur Chappell MD [address] [place] [address] [facility]iologyStart: 01-13-2025 End: 23-86-9485Wtjx complete W/O contrastEcho complete W/O contrast Echocardiography Routine Paroxysmal atrial fibrillation (CMS-HCC) Expected: 01/13/2025, Expires: 01/13/2026[facility] Work Phone: Comment on above:Expected: 01/13/2025, Expires: 01/13/2026Start: 93-60-4615Xtcmh BMI ScreeningAdult BMI ScreeningAtrium Healthtart: 09-30-1951Zxqdmjs ScreeningTobacco ScreeningCleveland Clinic Avon Hospital SystemStart: 91-32-6911Ylsmxebuul ScreeningDepression ScreeningAtrium Healthtart: 11-25-2024 End: 44-76-1604Pcugdjtwy to same day surgery centerWood [facility] Rhythm [place]ronComment on above:Afib/Typical Ablation - CARTO, ICE [16782 (CPT )]Afib Ablation - CARTO, ICE [13739 (CPT )]Start: 54-44-2060Gbqoqkwucx hospital visit by mrmzzfult86/12/2025 10:30 AM EDT Hospital Encounter [facility] [place] [address] [place] [address] Arthur Chappell MD [address] [place] [address] Paroxysmal atrial fibrillation ([facility]-H[facility] Rhythm AkronComment on above:Paroxysmal atrial fibrillation ([facility]-HCC)Start: 11-18-2024 End: 27-77-0749Wzcwf metabolic 2000 panel - Serum or PlasmaBasic Metabolic Panel Lab Routine Paroxysmal atrial fibrillation ([facility]-H[facility]) Expected: 11/18/2024, Exp ires: 08/26/2025[facility] Work Phone: Comment on above:Expected: 11/18/2024, Expires: 08/26/2025Start: 11-18-2024 End: 99-26-7574MMI W Auto Differential panel - BloodCBC auto differential Lab Routine Paroxysmal atrial fibrillation ([facility]-HCC) Expected: 11/18/2024, Expires: 08/26/2025ProKettering Health Hamilton SystemComment on above:Expected: 11/18/2024, Expires: 08/26/2025Start: 11-18-2024 End: 23-42-4067Xiiciympc [Mass/volume] in Serum or PlasmaMagnesium Lab Routine Paroxysmal atrial fibrillation ([facility]-HCC) Expected: 11/18/2024, Expires: 2024ProBrookwood Baptist Medical Center Health SystemComment on above:Expected: 11/18/2024, Expires: 08/26/2025Start: 11-12-2024 End: 34-05-1771Ktasgto encounter mdyuepcva51/27/2025 1:40 PM EST Office Visit [facility] JU[facility]RE[facility] [address] [place] [address] Trevin WendyALEXIS [address] [place] [address] MARLENE RUGGIEROtart: 30-44-4315Arrvn BMI ScreeningAdult BMI ScreeningAtrium Healthtart: 27-98-2162Ukufpys ScreeningTobacco ScreeningCleveland Clinic [facility]on Hospital System Start: 60-42-1153Sctis BMI ScreeningAdult BMI ScreeningCleveland Clinic Avon Hospital System Start: 11-32-7864Cejceoa ScreeningTobacco ScreeningAtrium Healthtart: 10-25-2024 End: 32-16-9501TU Brain WO and W contrast IVMR brain w and wo contrast routine Imaging Routine Memory impairment Anisocoria Expected: 10/25/2024 (Approximate), Expires: 10/25/2025[facility] Work Phone: comment on above:Expected: 10/25/2024 (Approximate), Expires: 10/25/2025Start: 10-20-2024 End: 69-22-0223Waypjcp encounter /04/2025 11:00 AM EST Office Visit [facility] [address] [place] [address] Radha Drummond MD [address] [place] [address] [facility]iologyStart: 09-24-2024 End: 28-94-7757Ntvevjn encounter procedureNOSELECT MEDICAL SPECIALTY HOSPITAL - COLUMBUS SOUTH ROUTEComment on above:ArrivedStart: 08-26-2024 End: 79-83-8501Pnvcvub encounter xpeclsxko32/11/2024 10:00 AM EST Office Visit [facility] [address] [place] [address] Jude Alberto, [facility] [address] [place] [address] Arthur Chappell MD [address] [place] [address] [facility] Start: 07-20-2024 End: 80-08-3755Tmfxvtl encounter piuxokrnv07/04/2024 12:30 PM EST Office Visit [facility] [address] [place] [address] Regis Guerrero DO [address] [place] [address] ArrivedNOSELECT MEDICAL SPECIALTY HOSPITAL - COLUM[facility] SOUTH ROUTEComment on above:ArrivedStart: 28-29-8753Mwxdwoxjy vaccinationInfluenza VaccineCleveland Clinic Avon Hospital SystemStart: 04-23-2024 End: 01-91-3597Cqkrw Monitor (In Office)[facility] Work Phone: Comment on above:Expected: 04/23/2024, Expires: 04/23/2025Start: 04-14-2024 End: 82-00-6287Zkscsmu encounter sapmieiil27/30/2024 11:15 AM EDT Office Visit [facility] [address] [place] [address] Haroldo Oshea MD [address] [place] [address] [facility]iologyStart: 11-08-2023 End: 74-46-5677Dntljyz encounter bftcgqeqg73/23/2024 10:15 AM EST Office Visit [facility] [address] [place] [address] Christy Ko MD [address] [place] [address] [facility]iologyStart: 36-97-1976Dgabcsnib vaccinationInfluenza VaccineProKettering Health Hamilton SystemStart: 89-38-2855Dxuivpxmhugysx of varicella zoster vaccineZoster (Shingles) Vaccine (1 of 2)[facility] SystemStart: 68-82-9890RPyC,Tdap and Td Vaccines (1 - Tdap)DTaP,Tdap and Td Vaccines (1 - Tdap)[facility]: 32-16-0994Oomtv BMI Follow Up PlanAdult BMI Follow Up PlanAtrium Healthtart: 67-36-7653Vlcblvxdtg ScreeningDepression ScreeningAtrium Healthtart: 96-12-1384Kpjnkdv CounselingTobacco CounselingBarberton Citizens HospitalBlood count [facility] Immunizations Immunization DateImmunizationNotesCare ProviderFacilityNEGATED: Highlighted row has not occurred!25-92-7709IIPZ-CoV-2 mRNA (tozinameran 5y-11y) Vanessa NOEL [phone]-Vdzzd[address] [place] [address] Raoul NEGATED: Highlighted row has not occurred!62-70-5659zmphiukjy virus vaccine, unspecified formulationKathy NOEL [phone]-UgqwrMarion Hospital Raoul NEGATED: Highlighted row has not occurred!75-88-2705IQRV-CoV-2 mRNA (tozinameran 5y-11y) Vanessa NOEL [phone]-KyiapMarion Hospital Raoul NEGATED: Highlighted row has not occurred!70-95-6735KASO-CoV-2 mRNA (tozinameran 5y-11y) Vanessa NOEL [phone]-UtzmdMarion Hospital Raoul Payers DatePayer CategoryPayerPolicy [id number] [id number] [employer] [facility] INMATE [id number] 2023-Present [phone] [place], [place] [id number] 87-76-5633Cjlkthaqdg Managed Care - POS [id number]2.65412-62-7038Nnvqvzg Care HMO (unspecified)AETNA -[id number].65164-51-9787Cvipkrm Health Insurance1.2.840.314484.1.13.424.2.7.3.805563.87773-15-7361Jksxtut Health [id number] 2.840.1.569188.3.579.2.593 [id number] 2.840.1.424488.3.57[id number] 2.0.1.571538.3.57[id number] 2.840.1.507344.3.57[id number] 2.840.1.763300.3.579.[id number] 2.840.1.425672.3.579.[id number] 2.840.1.327249.3.579.2.73362-51-7130Fevzeti7140953 2.840.1.258541.3.57[id number] 2.0.1.743956.3.579.[id number] 2.840.1.772489.3.579.2.053218-13-7165Kzezgvc1220839 2.0.1.168603.3.579.2.739072-74-2420Omckhsz14097808 2.0.1.711872.3.579.[id number] 2.840.1.586418.3.579.2.55572-84-4000Yqiepjk07978500 2.0.1.179651.3.579.2.[id number] 2.840.1.575344.3.579.[id number] 2.840.1.084284.3.57[id number] 2.840.1.798338.3.579.2.[id number] 2.840.1.820394.3.579.2.[id number] 2.840.1.390023.3.57[id number] 2.840.1.196636.3.579.[id number] 2.840.1.027252.3.57[id number] 2.840.1.197855.3.579.2.[id number] 2.840.1.517092.3.579.2.85102-03-0162Geczuew16357640 2..1.622679.3.579.2.14975-13-1477Ssbehea07997444 2.840.1.182975.3.579.2.9[id number] 2.840.1.413015.3.579.2.[id number] 2.840.1.285497.3.579.[id number] 2..1.901488.3.579.2.59490-39-5889Shjaysu08238927 2.840.1.836303.3.57[id number] 2.0.1.417278.3.57[id number] 2.840.1.353327.3.579.2.[id number] 2.840.1.799234.3.579.2.07305-88-4680Dukfocu98938060 2.16.840.1.734100.3.579.2.62094-89-9073Iizvdtj42110092 2.16.840.1.173368.3.579.2.34377-98-7557Rjknbwp85099085 2.16.840.1.998289.3.579.2.9[id number] 2..840.1.866704.3.579.2.71764-91-1361Thbggsx97737267 2.16.840.1.148532.3.579.[id number] 2.16.840.1.807986.3.579.2.05424-05-2714Tjtjidv12611595 2..840.1.674041.3.579.2.32380-77-3226Zxxfafx00684705 2..840.1.667899.3.579.2.25942-46-0674Xujp-[id number] Social History DateTypeDetailFacilityStart: 05-14-2022 End: 55-59-7569Odkakdm smoking statusHeavy tobacco smoker (finding)[facility] WillgabeTobacco smoking statusNeverMarion Hospital WillardStart: 01-08-2024 End: 50-08-1310Mfg Assigned At BirthMalP[facility] [place] Start: 11-13-2022 End: 69-83-6313Gnoxmho smoking statusLight tobacco smoker (finding)[facility] Medical CenterTobacco smoking status NHISTobacco smoking consumption unknownLIFEPOINT HOSPITALS HealthcareStart: 06-65-2910Pbx assigned at birthNot on fileLIFEPOINT HOSPITALS HealthcareStart: 09-16-1980 End: 96-01-3513Hrnoppv smoking status NHISSmokes tobacco dailyProGalion Hospitalca Health SystemStart: 09-16-1980 End: 16-07-4857Rcottue of tobacco useCigarette SmokerBarberton Citizens Hospital Start: 08-26-2024 End: 52-40-3894Nkhlumutsy smoked current (pack per day) - Reported0.5PCone Health Women's Hospitaltart: 01-08-2024 End: 08-55-8333Efmfxug use and exposureSmokeless tobacco non-userAtrium Healthtart: 08-26-2024 End: 48-97-4625Otyiayjcj beverage intakeEx-drinker (finding)[facility] HospitalHas the Glassmap, gas, oil, or water company threatened to shut off services in your home in past 12MoNGuernsey Memorial HospitalHow often to you have a drink containing alcohol?NeverAtrium Healthtart: 93-93-2319Qappkdb CommentSmoking down to about 6 sticks a day since last yearAtrium Healthtart: 30-16-2083Ucc assigned at birthMalFormerly [facility] Centertart: 04-21-2015 End: 81-76-8928OfkEpex (finding)[facility]: 53-15-9343Mltxvb identityIdentifies as male gender (finding)[facility]: 73-10-6830Eluijv orientationHeterosexual (finding)[facility]: 56-63-2861Kumvjkp smoking status NHISEx-smokerAtrium Healthtart: 09-16-1980 End: 57-53-0162Imefrwe of tobacco useCurrent smokerMercy Health Tiffin Hospital Medical Equipment Procedure CodeEquipment CodeEquipment Original TextEquipment IdentifierDates Unknown Unknown 11/21/22 Non Biological Left Anterior Descending Coronary Artery FDAStart: 48-49-8521Rbbwdqe on above:Xience Esther 2.75 mm x 15 mm Coronary stent to mid LAD.FDAStart: 59-65-2319Oitqebz on above:Xience Esther 3.0 mm x 18 mm coronary stent to proximal LAD.Unknown Unknown 11/21/22 Non Biological Left Anterior Descending Coronary ArteryFDAStart: 02-37-6318Jemjywt on above:Xience Esther 2.75 mm x 15 mm Coronary stent to mid LAD.FDAStart: 63-97-3786Xtcfjhv on above:Xience Esther 3.0 mm x 18 mm coronary stent to proximal LAD.Unknown Unknown 11/21/22 Non Biological Left Anterior Descending Coronary ArteryFDAStart: 19-79-0758Rlibxzd on above:Xience Esther 2.75 mm x 15 mm Coronary stent to mid LAD.FDAStart: 79-62-8842Tktsvhz on above:Xience Esther 3.0 mm x 18 mm coronary stent to proximal LAD.Unknown Unknown 11/21/22 Non Biological Left Anterior Descending Coronary ArteryFDAStart: 63-77-7981Wakyuoj on above:Xience Esther 2.75 mm x 15 mm Coronary stent to mid LAD.FDAStart: 29-08-4179Qaomegn on above: Xience Esther 3.0 mm x 18 mm coronary stent to proximal LAD.Unknown Unknown 11/21/22 Non Biological Left Anterior Descending Coronary ArteryFDAStart: 68-29-7724Splrmav on above:Xience Esther 2.75 mm x 15 mm Coronary stent to mid LAD.FDAStart: 75-70-4941Shobpsx on above:Xience Esther 3.0 mm x 18 mm coronary stent to proximal LAD.Unknown Unknown 11/21/22 Non Biological Left Anterior Descending Coronary ArteryFDAStart: 98-40-9953Myrolfo on above:Xience Esther 2.75 mm x 15 mm Coronary stent to mid LAD.FDAStart: 48-68-0730Vuocluz on above: Xience Esther 3.0 mm x 18 mm coronary stent to proximal LAD.Unknown Unknown 11/21/22 Non Biological Left Anterior Descending Coronary ArteryFDAStart: 92-87-1522Mcxjkfs on above:Xience Esther 2.75 mm x 15 mm Coronary stent to mid LAD.FDAStart: 85-32-0238Sbvluax on above:Xience Esther 3.0 mm x 18 mm coronary stent to proximal LAD.Unknown Unknown 11/21/22 Non Biological Left Anterior Descending Coronary ArteryFDAStart: 66-55-7167Kdqrfac on above:Xience Esther 2.75 mm x 15 mm Coronary stent to mid LAD.FDAStart: 43-04-1162Itjxuur on above: Xience Esther 3.0 mm x 18 mm coronary stent to proximal LAD.Unknown Unknown 11/21/22 Non Biological Left Anterior Descending Coronary ArteryFDAStart: 30-16-8720Dagknom on above:Xience Esther 2.75 mm x 15 mm Coronary stent to mid LAD.FDAStart: 66-95-7525Qrhvvib on above:Xience Esther 3.0 mm x 18 mm coronary stent to proximal LAD.Unknown Unknown 11/21/22 Non Biological Left Anterior Descending Coronary ArteryFDAStart: 66-62-6842Xlljtsg on above:Xience Esther 2.75 mm x 15 mm Coronary stent to mid LAD.FDAStart: 45-11-3886Yohhqbu on above: Xience Esther 3.0 mm x 18 mm coronary stent to proximal LAD.Unknown Unknown 11/21/22 Non Biological Left Anterior Descending Coronary ArteryFDAStart: 58-11-1213Ittkyqs on above:Xience [address] 2.75 mm x 15 mm Coronary stent to mid LAD.FDAStart: 48-41-5754Efizknf on above:Xience Esther 3.0 mm x 18 mm coronary stent to proximal LAD.Unknown Unknown 11/21/22 Non Biological Left Anterior Descending Coronary ArteryFDAStart: 92-00-4612Ubqjtnp on above:Xience Esther 2.75 mm x 15 mm Coronary stent to mid LAD.FDAStart: 03-14-4060Msdxbym on above: [address]ience Esther 3.0 mm x 18 mm coronary stent to proximal LAD.Unknown Unknown 11/21/22 Non Biological Left Anterior Descending Coronary ArteryFDAStart: 10-75-8615Zwgpgmp on above:Xience Esther 2.75 mm x 15 mm Coronary stent to mid LAD.FDAStart: 71-94-8222Cowwfkm on above:Xience Esther 3.0 mm x 18 mm coronary stent to proximal LAD.Unknown Unknown 11/21/22 Non Biological Left Anterior Descending Coronary ArteryFDAStart: 21-93-1778Eerlpgw on above:Xience Esther 2.75 mm x 15 mm Coronary stent to mid LAD.FDAStart: 34-99-0807Vieyark on above: Xience Esther 3.0 mm x 18 mm coronary stent to proximal LAD.Unknown Unknown 11/21/22 Non Biological Left Anterior Descending Coronary ArteryFDAStart: 12-16-2124Gzlogje on above:Xience Esther 2.75 mm x 15 mm Coronary stent to mid LAD.FDAStart: 67-75-9144Hlbkzrt on above:Xience Esther 3.0 mm x 18 mm coronary stent to proximal LAD.Unknown Unknown 11/21/22 Non Biological Left Anterior Descending Coronary ArteryFDAStart: 13-33-7115Fzgzaaq on above:Xience Esther 2.75 mm x 15 mm Coronary stent to mid LAD.FDAStart: 82-16-8530Xeewcxt on above: Xience Esther 3.0 mm x 18 mm coronary stent to proximal LAD.Unknown Unknown 11/21/22 Non Biological Left Anterior Descending Coronary ArteryFDAStart: 62-88-8128Quahfyl on above:Xience Esther 2.75 mm x 15 mm Coronary stent to mid LAD.FDAStart: 19-44-6810Pcxivxo on above:Xience [address] 3.0 mm x 18 mm coronary stent to proximal LAD.Unknown Unknown 11/21/22 Non Biological Left Anterior Descending Coronary ArteryFDAStart: 30-14-0610Pmforkr on above:Xience [address] 2.75 mm x 15 mm Coronary stent to mid LAD.FDAStart: 87-20-2729Uamfsvg on above: Xience Esther 3.0 mm x 18 mm coronary stent to proximal LAD.Unknown Unknown 11/21/22 Non Biological Left Anterior Descending Coronary ArteryFDAStart: 72-35-2590Xigcqfg on above:[address]ience [address] 2.75 mm x 15 mm Coronary stent to mid LAD.FDAStart: 72-56-4470Wnhhqhu on above:Xience Esther 3.0 mm x 18 mm coronary stent to proximal LAD. Goals DatePatient GoalDesired Activity/StatePersonal health goalComment on above: Evaluation of progress towards goal: plan is to return to long term upon heart conversion to RSR Functional Status VqdnVpdfondzpwFhuyqzRglwgvwk92-28-0842Gynbbfgxcm StatusN/[facility] General Surgery Hgfpfand20-18-5416Rpznlfooaj StatusN/AExecutive [facility] of [facility]08-18-2023Functional StatusN/[facility] Pbavdzf97-64-9978Gbkxwaeabl StatusN/A [facility]03-20-2023Functional StatusN/[facility] Saoqoxj41-04-6397Yqpggyblhk StatusNoPrem[facility]01-17-2023Functional StatusN/AGeneral Surgery Vkdletmf36-23-0707Bhckqyogau StatusN/[facility] 06-29-5037Gdobewdhhz StatusN/AGenersd Surgery Tmlvlhii23-68-0496Vsqfupjgix StatusN/[facility] Clinical Notes 05-14-2022 to 07-19-2025 Note Date & NohkIliuCtnbbjri92-06-0698 NotePatient Education Mental and Behavioral Health Delirium Delirium is a state of mental confusion. It comes on quickly and causes significant changes in a person's thinking and behavior. People with delirium usually have trouble paying attention to what is going on or knowing where they are. They may become very withdrawn or very emotional and unable to sit still. They may even see or feel things that are not there (hallucinations). Delirium is a sign of a serious underlying medical condition. What are the causes? Delirium occurs when something suddenly affects the signals that the brain sends out. Brain signalscan be affected by anything that puts severe stress on the body and brain and causes brain chemicals to be out of balance. The most common causes of delirium include: ??? Infections. These may be bacterial, viral, fungal, or protozoal. ??? Medicines. These include many hrrs-qlo-kroankf and prescription medicines. ??? Recreational drugs. ??? Substance withdrawal. This occurs with sudden discontinuation of alcohol, certain medicines, orrecreational drugs. ??? Surgery and anesthesia. ??? Sudden vascular events, such as stroke and brain hemorrhage. ??? Other brain disorders, such as migraines, tumors, seizures, and physical head trauma. ??? Metabolic disorders, such as kidney or liver failure. ??? Low blood oxygen (anoxia). This may occur with lung disease, cardiac arrest, or carbon monoxidepoisoning. ??? Hormone imbalances (endocrinopathies), such as an overactive thyroid (hyperthyroidism) or underactive thyroid (hypothyroidism). ??? Vitamin deficiencies. What increases the risk? The following factors may make someone more likely to develop this condition: ??? Being a child. ??? Being an older person. ??? Living alone. ??? Having vision loss or hearing loss. ??? Having an existing brain disease, such as dementia. ??? Having long-lasting (chronic) medical conditions, such as heart disease. ??? Being hospitalized for long periods of time. What are the signs or symptoms? Delirium starts with a sudden change in a person's thinking or behavior. Symptoms include: ??? Not being able to stay awake (drowsiness) or pay attention. ??? Being confused about places, time, and people. ??? Forgetfulness. ??? Having extreme energy levels. These may be low or high. ??? Changes in sleep patterns. ??? Extreme mood swings, such as sudden anger or anxiety. ??? Focusing on things or ideas that are not important. ??? Rambling and senseless talking. ??? Difficulty speaking, understanding speech, or both. ??? Hallucinations. ??? Tremor or unsteady gait. Symptoms come and go throughout the day and are often worse at the end of the day. How is this diagnosed? People with delirium may not realize that they have the condition. Often, a family member or healthcare provider is the first person to notice the changes. This condition may be diagnosed based on aphysical exam, health history, and tests. ??? The health care provider will obtain a detailed history. This may include questions about: ? Current symptoms. ? Medical conditions that you have. ? Medicines. ? Drug use. ??? The health care provider will perform a mental status test by: ? Asking questions to check for confusion. ? Watching for abnormal behavior. ??? The health care provider may also order lab tests or additional studies to determine the cause of the delirium. How is this treated? Treatment of delirium depends on the cause and severity. Delirium usually goes away within days or weeks of treating the underlying cause. In the meantime, do not leave the person alone because he orshe may accidentally cause self-harm. This condition may be treated with supportive care, such as: ??? Increased light during the day and decreased light at night. ??? Low noise level. ??? Uninterrupted sleep. ??? A regular daily schedule. ??? Clocks and calendars to help with orientation. ??? Familiar objects, including the person's pictures and clothing. ??? Frequent visits from familiar family and friends. ??? A healthy diet. ??? Gentle exercise. In more severe cases of delirium, medicine may be prescribed to help the person keep calm and thinkmore clearly. Follow these instructions at home: ??? Continue supportive care as told by a health care provider. ??? Take yymk-uct-fqmpnoq and prescription medicines only as told by your health care provider. ??? Ask a health care provider before using herbs or supplements. ??? Do not use alcohol or illegal drugs. ??? Keep all follow-up visits. This is important. Contact a health care provider if: ??? Symptoms do not get better or they become worse. ??? New symptoms of delirium develop. ??? Caring for the person at home does not seem safe. ??? Eating, drinking, or communicating stops. ??? There are side effects of medicines, suc (more content not included)... [facility]08-20-2025 Hospital Discharge instructions Patient Education 05/05/2025 12:05:29 Benign Prostatic Hyperplasia Benign Prostatic Hyperplasia Benign prostatic hyperplasia (BPH) is an enlarged prostate gland that is caused by the normal agingprocess. The prostate may get bigger as a man gets older. The condition is not caused by cancer. The prostate is a walnut-sized gland that is involved in the production of semen. It is located in front of the rectum and below the bladder. The bladder stores urine. The urethra carries stored urine ou t of the body. An enlarged prostate can press on the urethra. This can make it harder to pass urine. The buildup of urine in the bladder can cause infection. Back pressure and infection may progress to bladder damage and kidney (renal) failure. What are the causes? This condition is part of the normal aging process. However, not all men develop problems from thiscondition. If the prostate enlarges away from the [...] urethra. Follow these instructions at home: Take xpzw-dbz-jfbbqup and prescription medicines only as told by [...] provider. Document Revised: 03/21/2022 Document Reviewed: 03/21/2022 [employer] Patient Education [address] 05/05/2025 12:05:24 Hypogonadism, Male Hypogonadism, Male Male [...] older. This is the main cause of thiscondition. Use of medicines, such as antidepressants, steroids, [...] therapy. Follow these instructions at home: Take nksq-hwc-nzzxuvm and prescription medicines only as told by [...] for prostate cancer before putting you on testosteronetherapy. This information is not intended to replace advice given to you by your health care provider. Make sure you discuss any questions you have with your health care provider. Document Revised: 05/04/2021 Document Reviewed: 05/04/2021 [employer] Patient Education [address] Follow Up Care 03/17/2025 09:32:52 With:Fabian LINDQUIST, Varsha Rogers, URL, URO Address: [address] [place] [phone] When: Unknown Comments:2 mos w/ T, Hct, PSA [facility] 08-20-2025 NotePatient Education Urology Benign Prostatic Hyperplasia Benign prostatic hyperplasia (BPH) is an enlarged prostate gland that is caused by the normal agingprocess. The prostate may get bigger as a man gets older. The condition is not caused by cancer. The prostate is a walnut-sized gland that is involved in the production of semen. It is located in front of the rectum and below the bladder. The bladder stores urine. The urethra carries stored urine ou t of the body. An enlarged prostate can press on the urethra. This can make it harder to pass urine. The buildup of urine in the bladder can cause infection. Back pressure and infection may progress to bladder damage and kidney (renal) failure. What are the causes? This condition is part of the normal aging process. However, not all men develop problems from thiscondition. If the prostate enlarges away from the [...] this procedure, a tool is inserted through theopening at the tip of the penis (urethra). [...] procedure uses radio frequencies to destroy and removea small amount of prostate tissue. ? Interstitial laser coagulation (ILC). This procedure uses a laser to destroy and remove a small amount of prostate tissue. ? Transurethral electrovaporization (TUVP). This procedure uses electrodes to destroy and remove a small amount of prostate tissue. ? Prostatic urethral lift. This procedure inserts an implant to push the lobes of the prostate awayfrom the urethra. Follow these instructions at home: ??? Take bazh-acg-ppmfked and prescription medicines only as told by [...] symptoms do not get (more content not included)...[facility]07-15-2025 Miscellaneous Notes* Telephone Encounter - Bre Lauren RN - 03/30/2025 12:25 AM EDT Ov-01/13/25 Bmp and mg-11/20/24 documented in this encounterBarber[facility]07-[facility] Telephone encounter Note* Telephone Encounter - Bre Lauren RN - 03/30/2025 12:25 AM EDT Ov-01/13/25 Bmp and mg-11/20/24 [facility]07[facility] NotePatient Education Orthopedics Shoulder Pain Many things can [...] strengthen the arm. General instructions ??? Take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 house as my medication did not follow me from the [facility] I have had tightnessand cramps in my chest with my stomach [...] Have you been taking all of your medicationsas prescribed? What kind of symptoms are you having. Can you tell if you are in AFIB? Please give us an update and in the meantime, if you are having any worsening symptoms and/or elevated heart rates, please report to the ER. Thanks! Andrea LANE Last read by Regis Horta at 8:58 AM on 04/01/2024. March 30, 2024 Regis Horta to [facility] Clinical Staff (supporting Haroldo Oshea MD) CF 03/30/24 2:00 PM My resting heart rate is consistently 90-100 ocasionally reaching over 100 when should I be concerned? [facility]02-23-2024 History of Present illness Narrative* Christy Ko MD - 11/08/2023 10:15 AM EST Regis Horta Date of visit: 11/08/2023 Date of : 1970 Age: 53 y.o. Patient Active Problem List Diagnosis Anxiety Asthma COPD (chronic obstructive pulmonary disease) ([facility]) Hyperlipemia, mixed Insomnia due to medical condition Paroxysmal atrial fibrillation ([facility]) Coronary artery disease involving [place] coronary artery of [place] heart without angina pectoris Allergies Allergen Reactions [...] use. Past Medical History: Diagnosis Date A-fib ([facility]) BPH (benign prostatic hyperplasia) CHF (congestive heart failure) ([facility]) COPD (chronic obstructive pulmonary disease) ([facility]) Hernia, inguinal HTN (hypertension) Insomnia Kidney injury Narcolepsy Pancreatitis S/P primary angioplasty with coronary stent 02/14/2023 Seizure ([facility]) Smoker No data recorded No data recorded [...] tablet Reorder IMPRESSIONS/PLAN 1. Paroxysmal atrial fibrillation (CMS-HCC) 2. Coronary artery disease involving [place] coronary artery of [place] heart without angina pectoris Symptomatic paroxysmal atrial fibrillation with RVR, occurred when he was off medications includingbeta-jolly CAD prior PCI, repeat catheterization 11/2022 Mild [...] or palpitations, I have asked that his bloodpressure and heart rate be checked and we [...] defined for this encounter. documented in this encounterRockingham Memorial HospitalMyTime02-23-2024 Miscellaneous Notes* Addendum Note - Christy Ko MD - 11/08/2023 10:15 AM ESTAddended by: CHRISTY KO on: 11/08/2023 10:51 AM Modules accepted: Orders * Addendum Note - Andrea Machado RN - 11/08/2023 10:15 AM ESTAddended by: ANDREA MACHADO on: 11/08/2023 10:54 AM Modules accepted: Orders documented in this encounterBarberton Citizens Hospital02-23-2024 Note* Addendum Note - Christy Ko MD - 11/08/2023 10:15 AM ESTAddended by: CHRISTY KO on: 11/08/2023 10:51 AM Modules accepted: Orders [facility]02-23-2024 Note* Addendum Note - Andrea Machado RN - 11/08/2023 10:15 AM ESTAddended by: ANDREA MACHADO on: 11/08/2023 10:54 AM Modules accepted: Orders [facility]02-22-2024 Miscellaneous Notes* Telephone Encounter - Anabel Muro CMA - 11/07/2023 3:53 PM EST Attempted to phone pt to remind of appt scheduled for 11/08/2023, no answer or vm. documented in this encounterBarberton Citizens Hospital02-22-2024 Telephone encounter Note* Telephone Encounter - Anabel Muro CMA - 11/07/2023 3:53 PM EST Attempted to phone pt to remind of appt scheduled for 11/08/2023, no answer or vm. [facility]02-06-[facility] Hospital course Narrative* Arie Foley MD - 10/22/2023 2:44 PM EST Images from the original note were not included. [facility] Patrice Becerra, MD Lucia Pena, MD Devyn Vick, MD Ariana Velazquez, MD Enrico Chowdhury, MD Reyna Dye, MD Arie Foley, MD Michelle Mills, MD Inessa Anglin, DESKTOP SUPPORT TECHNICIAN Mouna Jeffrey, DESKTOP SUPPORT TECHNICIAN Susanne Oneil, [facility] Lorenza Franco, [facility] Dia Monique, [facility] Gilma Hajiedward, [facility] Sejal Ezio, [facility] Radha Joel, [facility] El Dobson, [facility] Lois Ewing, DESKTOP SUPPORT TECHNICIAN Aleida Payton, [facility] Elisa Moreno, [facility] Nat Sotelo, [facility] John Hong, [facility] Sanjuana Flores, [facility] Aleida Almaraz, [facility] Bianca Lambert, [facility] Josue Cortez, [facility] Medicine Discharge Summary Patient: Regis Horta Date of : 1970 Room: 213/02 Encounter date: 10/22/23 DATE OF ADMISSION: 10/20/2023 DATE OF DISCHARGE:10/22/2023 DISCHARGE DIAGNOSES Principal Problem: Atrial fibrillation with rapid ventricular response (CMS-HCC) Active Problems: Paroxysmal atrial fibrillation ([facility]) CONSULTANTS None PCP: NO PCP, NO PCP PROCEDURES None HOSPITAL COURSE SUMMARY Per HPI: Regis Horta is a 53 y.o. male who presents with Chest discomfort. Pt has been in long term which has prevented him from being able to take his medications for his atrial fibrillation. Pt had two stents placed by sebastian sykes around 7 months ago. Pt is a diagnosed diabetic in which hetakes Eliquis for. Though he has not been able to take it due to his incarnation. ER Course: Case was reviewed with forensic medical examiner, Dr. Ko. Agrees with care plan to continue IV Lopressor therapy. If the patient does not become rate controlled with this he would recommend digoxinloading. Will follow in consultation. He would like [...] him for cardiac stress test due to decreasedejection fraction. Stress test negative. Patient cleared to be discharge per Cardiology. Patient should continue to take Toprol XL 25 mg daily as well as Eliquis 5 mg b.i.d. for VTE prophylaxis. Paper prescriptions written to give to law enforcement to take back to nurse at long term. 10/22/23, Hospital Day: 3 Interval History: Status: [...] cm (5' 2 ) Wt 67.6 kg (149lb) SpO2 97% BMI 27.25 kg/m Intake/Output Summary [...] mg b.i.d.. DISCHARGE INSTRUCTION Disposition: Custody of [facility] Condition: Good Activity: activity as tolerated Diet: [...] this patient. GRANT Angeles, 10/22/2023 2:44 PM [facility] Medicine [facility] Hospitalists 7AM-7PM: Message rounding BETY in [employer] or page through [facility]. 7PM-7AM: Page on-call BETY through our answering [...] the plan as noted. documented in this encounterNationwide Children's HospitalKuwo Science and Technology [id number] History of Present illness Narrative* Anuel Garrido MD - 10/22/2023 7:57 AM EST Images from the original note were not included. [facility] [address] [place] [address] PROGRESS NOTE Regis Horta was seen examined at bedside this morning. No reported cardiac events overnight. Denies any chest pain shortness of breath or palpitations or dizziness orthopnea or edema. Echocardiogram results reviewed and discussed with the patient. Review of telemetry showing patientnot connected at the time of my visit. [...] trace regurgitation. There is no evidence of mitralvalve stenosis. Tricuspid Valve: The leaflets are mildly [...] trace regurgitation. There is no evidence of mitralvalve stenosis. Tricuspid Valve: The leaflets are mildly [...] prevention of thromboembolic events. -will follow-up. ANUEL GARRIDO MD This note was completed using a voice dry mixer system. Every effort was made to ensure accuracy. However, inadvertent computerized dry mixer errors may be present. documented in this encounterNationwide Children's HospitalEnvis [facility] [id number] Plan of care note * Plan of Care - Vicki Chiang RN - 10/22/2023 4:27 AM EST Problem: Safety Goal: Patient will be injury free during hospitalization Description: INTERVENTIONS: 1. Assess patient's risk for falls and implement fall prevention plan of care per policy 2. Provide and maintain a safe environment 3. Proper use of double Identifiers 4. Medication administration using the 5 rights 5. Hand hygiene 6. Specimens are labeled at the bedside 7. Instruct patient/ patient provider relations representative about use of safety devices 8. Include patient/ patient provider relations representative in decisions related to safety Outcome: [...] breath sounds clear, not in respiratory distress. [facility]02-06-2024 Miscellaneous Notes* Plan of Care - Vicki Chiang RN - 10/22/2023 4:27 AM EST Problem: Safety Goal: Patient will be injury free during hospitalization Description: INTERVENTIONS: 1. Assess patient's risk for falls and implement fall prevention plan of care per policy 2. Provide and maintain a safe environment 3. Proper use of double Identifiers 4. Medication administration using the 5 rights 5. Hand hygiene 6. Specimens are labeled at the bedside 7. Instruct patient/ patient provider relations representative about use of safety devices 8. Include patient/ patient provider relations representative in decisions related to safety Outcome: [...] not in respiratory distress. documented in this encounterBarberton Citizens Hospital02-05-2024 Nurse Note* Vicki Chiang RN - 10/21/2023 9:17 PM EST 2012 Controller Operations And Hr Manager tried to gather home med list. Pt. Was unsure of all his home medication list but able name some without the doses, like Plavix, Eliquis ,Topmax, Spiriva, Symbicort BD,Albuterol as needed Reglan. Inquire other alternatives how we can secure his med list but since his also in prisonthere is no way to retrieve the list. Will call tom. RACQUEL juárez to get medication list information. [facility]02-05-2024 Nurse Note* Vicki Chiang RN - 10/21/2023 9:17 PM EST 2013 Controller Operations And Hr Manager tried to gather home med list. Pt. Was unsure of all his home medication list but able name some without the doses, like Plavix, Eliquis ,Topmax, Spiriva, Symbicort BD,Albuterol as needed Reglan. Inquire other alternatives how we can secure his med list but since his also in prisonthere is no way to retrieve the list. Will call tom. CLEMENT franck to get medication list information. documented in this encounterBarberton Citizens Hospital02-05-2024 History and physical note* Arie Foley MD - 10/21/2023 9:25 AM EST Images from the original note were not included. [facility]OSPITALISTS Patrice Becerra, MD Lucia Pena, MD Devyn Vick, MD Ariana Velazquez, MD Enrico Chowdhury, MD Reyna Dye, MD Arie Foley, MD Michelle Mills, MD Inessa Anglin, DESKTOP SUPPORT TECHNICIAN Mouna Murphy, DESKTOP SUPPORT TECHNICIAN Susanne Riggs, DESKTOP SUPPORT TECHNICIAN Lorenza Franco, DESKTOP SUPPORT TECHNICIAN Dia Monique, DESKTOP SUPPORT TECHNICIAN Gilma Puga, DESKTOP SUPPORT TECHNICIAN Sejal Holguin, [facility] aRdha Joel, [facility] El Dobson, [facility] Lois Ewing, DESKTOP SUPPORT TECHNICIAN Aleida Payton, [facility] Elisa Moreno, [facility] Nat Sotelo, [facility] John Hong, [facility] Sanjuana Flores, [facility] Aleida Almaraz, [facility] Bianca Lambert, [facility] Josue Cortez, [facility] Medicine History & Physical Patient: Regis Horta Date of : 1970 Room: 04/23 PCP: NO PCP, NO PCP Admission date: 10/20/2023 11:09 PM Encounter date: 10/21/23 SUBJECTIVE Regis Horta is a 53 y.o. male who presents with Chest discomfort. Pt has been in long term which has prevented him from being able to take his medications for his atrial fibrillation. Pt had two stents placed by sebastian sykes around 7 months ago. Pt is a diagnosed diabetic in which he takes Eliquis for. Though he has not been able to take it due to his incarnation. ER Course: Case was reviewed with forensic medical examiner, Dr. Ko. Agrees with care plan to continue IV Lopressor therapy. If the patient does not become rate controlled with this he would recommend digoxinloading. Will follow in consultation. He would like [...] has a past medical history of A-fib ([facility]). Past Surgical History: Patient has no past [...] Murmur heard. Comments: Atrial fibrillation noted on case monitor with heart rate between 110 and 130. [...] (CMS-HCC) ASSESSMENT & PLAN AFib with RVR: environmental monitoring specialist. Cardiology consult. Echocardiogram ordered. Cardiology following: Restart [...] Likely discharge tomorrow. Awaiting echocardiogram results. El Dobson, REDDY-DESKTOP SUPPORT TECHNICIAN, 10/21/2023 3:34 PM [facility] Hospitalists 7AM-7PM: Message rounding BETY in [employer] or page through [employer] [facility]. 7PM-7AM: Page on-call BETY through our answering service, . This note is dictated with the use of M*Modal. Please note that this dictation was completed with computer voice recognition software. Quite often unanticipated grammatical, syntax, homophones, and other interpretive errors are inadvertently transcribed by the computer software. Please disregard these errors. Please excuse any errors that have escaped final proofreading. El Dobson, CLOTHES IRONER-DESKTOP SUPPORT TECHNICIAN 10/21/23 1534 Attending Addendum: I Dr Arie [...] reprts/films.I agree with the plan as noted. [facility]02-05-2024 History and physical note* Arie Foley MD - 10/21/2023 9:25 AM EST Images from the original note were not included. [facility]OSPITALISTS MD Lucia Molina MD Kaleem Gill, MD Sneha Kommoori, MD Ruqiyya Muhammad, MD Reyna Dye, MD Arie Foley, MD Michelle Mills, MD Inessa Anglin, DESKTOP SUPPORT TECHNICIAN Mouna Murphy, DESKTOP SUPPORT TECHNICIAN Susanne Riggs, DESKTOP SUPPORT TECHNICIAN Lorenza Gamez, DESKTOP SUPPORT TECHNICIAN Dia Monique, DESKTOP SUPPORT TECHNICIAN Gilma Puga, DESKTOP SUPPORT TECHNICIAN Sejal Holguin, DESKTOP SUPPORT TECHNICIAN Radha Joel, DESKTOP SUPPORT TECHNICIAN El Dobson, DESKTOP SUPPORT TECHNICIAN Lois Ewing, DESKTOP SUPPORT TECHNICIAN Aleida Payton, DESKTOP SUPPORT TECHNICIAN Elisa Moreno, DESKTOP SUPPORT TECHNICIAN Nat Sotelo, ETELVINA Hong, ETELVINA Flores, ETELVINA Almaraz, ETELVINA Lambert, DESKTOP SUPPORT TECHNICIAN Josue Cortez, DESKTOP SUPPORT TECHNICIAN Hospital Medicine History & Physical Patient: Regis Horta Date of : 1970 Room: 04/23 PCP: NO PCP, NO PCP Admission date: 10/20/2023 11:09 PM Encounter date: 10/21/23 SUBJECTIVE Regis Horta is a 53 y.o. male who presents with Chest discomfort. Pt has been in long term which has prevented him from being able to take his medications for his atrial fibrillation. Pt had two stents placed by sebastian sykes around 7 months ago. Pt is a diagnosed diabetic in which he takes Eliquis for. Though he has not been able to take it due to his incarnation. ER Course: Case was reviewed with forensic medical examiner, Dr. Ko. Agrees with care plan to continue IV Lopressor therapy. If the patient does not become rate controlled with this he would recommend digoxinloading. Will follow in consultation. He would like [...] has a past medical history of A-fib ([facility]). Past Surgical History: Patient has no past [...] Murmur heard. Comments: Atrial fibrillation noted on case monitor with heart rate between 110 and 130. [...] (CMS-HCC) ASSESSMENT & PLAN AFib with RVR: environmental monitoring specialist. Cardiology consult. Echocardiogram ordered. Cardiology following: Restart [...] echocardiogram results. GRANT Angeles, 10/21/2023 3:34 PM [facility] Hospitalists 7AM-7PM: Message rounding BETY in [employer] or page through [employer]. 7PM-7AM: Page on-call BETY through our answering service, . This note is dictated with the use of M*Modal. Please note that this dictation was completed with computer voice recognition software. Quite often unanticipated grammatical, syntax, homophones, and other interpretive errors are inadvertently transcribed by the computer software. Please disregard these errors. Please excuse any errors that have escaped final proofreading. GRANT Angeles 10/21/23 1534 Attending Addendum: I Dr Arie [...] the plan as noted. documented in this encounterNationwide Children's HospitalEnvis [facility] [id number] Consult note* Anuel Garrido MD - 10/21/2023 7:02 AM ESTAssociated Order(s): IP CONSULT TO CARDIOLOGY Images from the original note were not included. [facility] [address] [place] [address] HISTORY & PHYSICAL / CONSULT NOTE Chongestefania Rae Horta PCP: NO PCP, NO PCP Date of Admission: 10/20/2023 Date of Consultation: 10/21/2023 7:02 AM Consult for atrial fibrillation with RVR SUBJECTIVE History of Present Illness: Regis Horta is a 53 y.o. male with no significant past medical history. Patient currently incarcerated. Presented to [facility] complaining of heart racing and shortness of breath. Stated that this has been going on for 2 days. Also reported on off chest discomfort and lightheadedness. Denies syncope or presyncope. Stated that he was diagnosed with atrial fibrillation long time ago andhas 2 stents, does not follow with Cardiology. Does not recall previous forensic medical examiner. 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 Stated that he [...] the time I visit heart rate improved inthe low 100s. In atrial fibrillation. Previous Medical History: Past Medical History: Diagnosis Date A-fib (CMS-HCC) Previous Surgical History: History reviewed. No pertinent surgical history. Allergies: No Known Allergies Hospital Meds: Current Facility-Administered Medications Medication Dose Route Frequency Provider Last Rate Last Admin acetaminophen (TYLENOL) tablet 650 mg 650 mg oral Q4H PRN Aleida L Veselka, CLOTHES IRONER-DESKTOP SUPPORT TECHNICIAN calcium gluconate 3,000 mg in sodium chloride 0.9 % 100 mL IVPB 3,000 mg intravenous PRN Aleida L Veselka, CLOTHES IRONER-DESKTOP SUPPORT TECHNICIAN calcium gluconate 4,000 mg in sodium chloride 0.9 % 250 mL IVPB 4,000 mg intravenous PRN Aleida L Veselka, CLOTHES IRONER-DESKTOP SUPPORT TECHNICIAN calcium gluconate IVPB 2000 mg/100 mL (20 mg/mL premix) 2,000 mg intravenous PRN Aleida L Veselka, CLOTHES IRONER-DESKTOP SUPPORT TECHNICIAN dextrose (GLUTOSE) 40 % gel 15 g 15 g oral PRN Aleida L Veselka, CLOTHES IRONER-DESKTOP SUPPORT TECHNICIAN dextrose 5 % (D5W) infusion 100 mL/hr intravenous Continuous PRN Aleida L Veselka, CLOTHES IRONER-DESKTOP SUPPORT TECHNICIAN dextrose 50 % in water (D50W) 50% solution 25 mL 25 mL intravenous PRN Aleida L Veselka, CLOTHES IRONER-DESKTOP SUPPORT TECHNICIAN glucagon HCL injection 1 mg 1 mg intramuscular PRN Aleida L Veselka, CLOTHES IRONER-DESKTOP SUPPORT TECHNICIAN heparin (porcine) injection 5,000 Units 5,000 Units subcutaneous Q8H JABARI Aleida L Veselka, CLOTHES IRONER-DESKTOP SUPPORT TECHNICIAN 5,000 Units at 10/21/23 0646 magnesium sulfate IVPB 2000 mg/50 mL in iso-osmotic water (40 mg/mL premix) 2,000 mg intravenous PRN Aleida L Veselka, CLOTHES IRONER-DESKTOP SUPPORT TECHNICIAN magnesium sulfate IVPB 4000 mg/100 mL in iso-osmotic water (40 mg/mL premix) 4,000 mg intravenous PRN Aleida L Veselka, CLOTHES IRONER-DESKTOP SUPPORT TECHNICIAN ondansetron (PF) (ZOFRAN) injection 4 mg 4 mg intravenous Q8H PRN Aleida L Veselka, CLOTHES IRONER-DESKTOP SUPPORT TECHNICIAN pantoprazole (PROTONIX) EC tablet 40 mg 40 mg oral QAM AC Aleida L Veselka, CLOTHES IRONER-DESKTOP SUPPORT TECHNICIAN potassium chloride (KLOR-CON M 20) CR tablet 30-50 mEq 30-50 mEq oral PRN Aleida L Veselka, CLOTHES IRONER-DESKTOP SUPPORT TECHNICIAN Or potassium chloride (KAYCIEL) 20 mEq/15 mL solution 30-50 mEq 30-50 mEq oral PRN Aleida L Veselka, CLOTHES IRONER-DESKTOP SUPPORT TECHNICIAN sennosides-docusate sodium (SENOKOT-S) 8.6-50 mg 1 tablet 1 tablet oral Q12H PRN Aleida L Veselka, CLOTHES IRONER-DESKTOP SUPPORT TECHNICIAN sodium phosphate 20 mmol in sodium chloride 0.9 % 250 mL IVPB 20 mmol intravenous PRN Aleida L Veselka, CLOTHES IRONER-DESKTOP SUPPORT TECHNICIAN Or sodium phosphate 20 mmol in sodium chloride 0.9 % 100 mL IVPB 20 mmol intravenous PRN Aleida L Veselka, CLOTHES IRONER-DESKTOP SUPPORT TECHNICIAN Or sod phos di, mono-K phos mono (K-PHOS NEUTRAL) 250 mg tablet 2 tablet 2 tablet oral PRN Aleida LVeselka, CLOTHES IRONER-DESKTOP SUPPORT TECHNICIAN sodium chloride 0.9 % flush 3 mL 3 mL intravenous PRN Ernesto Leon MD sodium chloride 0.9 % flush 3 mL 3 mL intravenous Q12H [facility] Ernesto Leon MD 3 mL at 10/21/23 0209 sodium chloride 0.9 % flush bag 25 mL intravenous PRN Aleida L Veselka, CLOTHES IRONER-DESKTOP SUPPORT TECHNICIAN sodium chloride 0.9 % infusion 20 mL/hr intravenous Continuous PRN Aleida L Veselka, CLOTHES IRONER-DESKTOP SUPPORT TECHNICIAN No current outpatient medications on file. Home [...] Comparison: None Findings: [facility] is normal in size. Trachea midline. Calcified nodule right upper lobe measuring 10 mm, likely benign granuloma. No large pleural effusion. No pneumothorax. Impression: 1. Noacute findings. Finalized by Lopez Quintanilla MD on [...] place, affect appropriate, no focal/major motor or sensorydefects noted Psychiatric: Appropriate mood, memory and judgment ASSESSMENT Paroxysmal atrial fibrillation with RVR on home Eliquis CAD with hx of stents Hypertension Hx of prediabetes Tobacco abuse Methamphetamine use 09/2023 COPD PLAN -patient doing well and stable at the time I visit. Heart rate in the low 100s, atrial fibrillationon the monitor. -going to start Toprol XL 25 mg daily. -resume home Eliquis 5 mg b.i.d.. -echocardiogram for baseline cardiac structure and function. -check thyroid function. - trend troponin. -will follow-up. ANUEL GARRIDO MD This note was completed using a voice dry mixer system. Every effort was made to ensure accuracy. However, inadvertent computerized dry mixer errors may be present. [facility] [employer] [id number] Consult note* Anuel Garrido MD - 10/21/2023 7:02 AM ESTAssociated Order(s): IP CONSULT TO CARDIOLOGY Images from the original note were not included. [facility] [place] [address] HISTORY & PHYSICAL / CONSULT NOTE Regis Horta PCP: NO PCP, NO PCP Date of Admission: 10/20/2023 Date of Consultation: 10/21/2023 7:02 AM Consult for atrial fibrillation with RVR SUBJECTIVE History of Present Illness: Regis Horta is a 53 y.o. male with no significant past medical history. Patient currently incarcerated. Presented to [facility] complaining of heart racing and shortness of breath. Stated that this has been going on for 2 days. Also reported on off chest discomfort and lightheadedness. Denies syncope or presyncope. Stated that he was diagnosed with atrial fibrillation long time ago andhas 2 stents, does not follow with Cardiology. Does not recall previous forensic medical examiner. 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 Stated that he [...] the time I visit heart rate improved inthe low 100s. In atrial fibrillation. Previous Medical History: Past Medical History: Diagnosis Date A-fib ([facility]) Previous Surgical History: History reviewed. No pertinent surgical history. Allergies: No Known Allergies Hospital Meds: Current Facility-Administered Medications Medication Dose Route Frequency Provider Last Rate Last Admin acetaminophen (TYLENOL) tablet 650 mg 650 mg oral Q4H PRN Aleida Amlaraz APRN-ETELVINA calcium gluconate 3,000 mg in sodium chloride 0.9 % 100 mL IVPB 3,000 mg intravenous PRN Aleida L Veselka, CLOTHES IRONER-DESKTOP SUPPORT TECHNICIAN calcium gluconate 4,000 mg in sodium chloride 0.9 % 250 mL IVPB 4,000 mg intravenous PRN Aleida L Veselka, CLOTHES IRONER-DESKTOP SUPPORT TECHNICIAN calcium gluconate IVPB 2000 mg/100 mL (20 mg/mL premix) 2,000 mg intravenous PRN Aleida L Veselka, CLOTHES IRONER-DESKTOP SUPPORT TECHNICIAN dextrose (GLUTOSE) 40 % gel 15 g 15 g oral PRN Aleida L Lemuelka, CLOTHES IRONER-DESKTOP SUPPORT TECHNICIAN dextrose 5 % (D5W) infusion 100 mL/hr intravenous Continuous PRN Aleida L Lemuelka, CLOTHES IRONER-DESKTOP SUPPORT TECHNICIAN dextrose 50 % in water (D50W) 50% solution 25 mL 25 mL intravenous PRN Aleida Hdezka, CLOTHES IRONER-DESKTOP SUPPORT TECHNICIAN glucagon HCL injection 1 mg 1 mg intramuscular PRN Aleida Almaraz, CLOTHES IRONER-DESKTOP SUPPORT TECHNICIAN heparin (porcine) injection 5,000 Units 5,000 Units subcutaneous Q8H JABARI Aleida Hdez, CLOTHES IRONER-DESKTOP SUPPORT TECHNICIAN 5,000 Units at 10/21/23 0646 magnesium sulfate IVPB 2000 mg/50 mL in iso-osmotic water (40 mg/mL premix) 2,000 mg intravenous PRN Aleida L Vesel, CLOTHES IRONER-DESKTOP SUPPORT TECHNICIAN magnesium sulfate IVPB 4000 mg/100 mL in iso-osmotic water (40 mg/mL premix) 4,000 mg intravenous PRN Aleida L Lemuelka, CLOTHES IRONER-DESKTOP SUPPORT TECHNICIAN ondansetron (PF) (ZOFRAN) injection 4 mg 4 mg intravenous Q8H PRN Aleida L Lemuel, CLOTHES IRONER-DESKTOP SUPPORT TECHNICIAN pantoprazole (PROTONIX) EC tablet 40 mg 40 mg oral QAM AC Aleida Almaraz, CLOTHES IRONER-DESKTOP SUPPORT TECHNICIAN potassium chloride (KLOR-CON M 20) CR tablet 30-50 mEq 30-50 mEq oral PRN Aleida L Vesdannaka, CLOTHES IRONER-DESKTOP SUPPORT TECHNICIAN Or potassium chloride (KAYCIEL) 20 mEq/15 mL solution 30-50 mEq 30-50 mEq oral PRN Aleida L Vesdannaka, CLOTHES IRONER-DESKTOP SUPPORT TECHNICIAN sennosides-docusate sodium (SENOKOT-S) 8.6-50 mg 1 tablet 1 tablet oral Q12H PRN Aleida L Veselka, CLOTHES IRONER-DESKTOP SUPPORT TECHNICIAN sodium phosphate 20 mmol in sodium chloride 0.9 % 250 mL IVPB 20 mmol intravenous PRN Aleida L Veselka, CLOTHES IRONER-DESKTOP SUPPORT TECHNICIAN Or sodium phosphate 20 mmol in sodium chloride 0.9 % 100 mL IVPB 20 mmol intravenous PRN Aleida L Veselka, CLOTHES IRONER-DESKTOP SUPPORT TECHNICIAN Or sod phos di, mono-K phos mono (K-PHOS NEUTRAL) 250 mg tablet 2 tablet 2 tablet oral PRN Aleida LVeselka, CLOTHES IRONER-DESKTOP SUPPORT TECHNICIAN sodium chloride 0.9 % flush 3 mL 3 mL intravenous PRN Ernesto Leon MD sodium chloride 0.9 % flush 3 mL 3 mL intravenous Q12H JABARI Ernesto Leon MD 3 mL at 10/21/23 0209 sodium chloride 0.9 % flush bag 25 mL intravenous PRN Aleida L Veselka, CLOTHES IRONER-DESKTOP SUPPORT TECHNICIAN sodium chloride 0.9 % infusion 20 mL/hr intravenous Continuous PRN Aleida L Veselka, CLOTHES IRONER-DESKTOP SUPPORT TECHNICIAN No current outpatient medications on file. Home [...] Results from last 7 days Lab Units 10/20/232324 TROPONIN I ng/mL <0.01 ProBNP Lipid Panel: No results found for: CHOL , TRIG , HDL , CHOLHDLR Liver Panel: No results found for: ALB HgA1C: No results found for: HGBA1C ABG: RADIOLOGY: X-ray chest 1 view Result Date: 10/20/2023 Single view chest History: AFib. Chest pain. Comparison: None Findings: Single portable view of thechest. Cardiac silhouette is normal in size. Trachea midline. Calcified nodule right upper lobe measuring 10 mm, likely benign granuloma. No large pleural effusion. No pneumothorax. Impression: 1. Noacute findings. Finalized by Lopez Quintanilla MD on [...] place, affect appropriate, no focal/major motor or sensorydefects noted Psychiatric: Appropriate mood, memory and judgment ASSESSMENT Paroxysmal atrial fibrillation with RVR on home Eliquis CAD with hx of stents Hypertension Hx of prediabetes Tobacco abuse Methamphetamine use 09/2023 COPD PLAN -patient doing well and stable at the time I visit. Heart rate in the low 100s, atrial fibrillationon the monitor. -going to start Toprol XL 25 mg daily. -resume home Eliquis 5 mg b.i.d.. -echocardiogram for baseline cardiac structure and function. -check thyroid function. - trend troponin. -will follow-up. ANUEL GARRIDO MD This note was completed using a voice dry mixer system. Every effort was made to ensure accuracy. However, inadvertent computerized dry mixer errors may be present. [facility]* Deanna Malagon RN - 10/21/2023 6:48 AM EST Pt medicated per orders and updated on POC. No further needs at this time. Call light in reach. Pt updated on POC [facility]02[facility] Emergency department Note* Deanna Malagon RN - 10/21/2023 6:48 AM EST Pt medicated per orders and updated on POC. No further needs at this time. Call light in reach. Pt updated on POC * Deanna Malagon RN - 10/21/2023 6:42 AM EST Pt medicated per orders and updated on POC. No further needs at this time. Call light in reach and officer at bedside. * Deanna Malagon RN - 10/21/2023 4:38 AM EST Pt medicated per orders and updated on POC. No s/sym of distress. No further needs at this time. Officer at bedside. Call light in reach * Deanna Malagon RN - 10/21/2023 3:[address] Ko notified of HR. Verbal order for 50mg Lopressor and 5mg IVP and Cardiology will see pt inthe AM * Deanna Malagon RN - 10/21/2023 3:15 AM EST Aleida ESPINOZA notified that pts HR is still in afib and no maintenance rate control meds ordered forpt and cardiology notified as well Dr Ko * Deanna Malagon RN - 10/21/2023 2:16 AM EST PT medicated again with 2nd dose of digoxin for HR. Pt is asymptomatic at this time with guard at bedside. No further needs at this time call light in reach * Deanna Malagon RN - 10/20/2023 11:45 PM EST Pt medicated per orders and updated on POC. no further needs at this time. Dandy Operator at door. Urine sent. Pt medicated with total of 10mg (5mg x2 doses) for Afib. * Ernesto Leon MD - 10/20/2023 11:09 PM EST Images from the original note were not included. History No chief complaint on file. Initial evaluation performed at 11:[address] Leon. Patient is a 53 y.o. female who presents to the ED for evaluation of Chest discomfort. Pt has been in long term which has prevented him from being able to take his medications for his atrial fibrillation.Pt had two stents placed by sebastian sykes around 7 months ago. Pt is a diagnosed diabetic in which he takes Eliquis for. Though he has not been able to take it due to his incarnation. History provided by: Patient aerial photograph interpreter used?: No There is no problem list [...] IV Lopressor. Additional 5 mg of IV Lopressorordered. [RS] 2355 Case was reviewed with forensic medical examiner, Dr. Ko. Agrees with care plan to continue IV Lopressor therapy. If the patient does not become rate controlled with this he would recommend digoxin loading. Will follow in consultation. He would like the patient admitted to the hospitalist service. [RS] 2356 Case reviewed with hospitalist RN ORTHO via [employer] who has accepted this patient as an admission to her service. [RS] [facility] Oct 21, 2023 0153 No improvement in [...] I did round on him. He is restingcomfortably with no complaints or concerns at this time. [RS] ED Course User Index [KM] Lavonne Lucio DO [RS] Ernesto Leon MD Clinical Impressions as of 10/22/23 1443 Atrial fibrillation with rapid ventricular response (CMS-HCC) Paroxysmal atrial fibrillation (CMS-HCC) MDM Medical Decision Making Patient is a 53-year-old male with a history of AFib who has been incarcerated for the last 3 weeksand did not have access to any of [...] He believes he has done well with beta- blockers previously. On clinical examination he appears to [...] signing this emergency patient record, the Emergency Physician/RN ORTHO/PA-C attests that all entries made into the electronic medical record by shavon Hawkins prior to the Physician/RN ORTHO/PA-C signature reflect an accurate accounting of the evaluation and care rendered by that Emergency Physician/RN ORTHO/PA-C. The Emergency Physician/RN ORTHO/PA-C assumes full responsibility for those entries.The Emergency Physician/RN ORTHO/PA-C also attests that any patient testing or treatment that was instituted by nursing staff in accordance to Emergency Department Preemptive Guidelines have been reviewed and unless so stated elsewhere in this patient chart, the Physician/RN ORTHO/PA-C agrees with the testing and care provided. No Additional Attestations Donal Nick 10/20/23 2318 Donal Nick 10/20/23 2318 Ernesto Leon MD 10/20/23 2321 Donal Nick 10/20/23 2332 Ernesto Leon MD 10/21/23 2202 documented in this [facility]Bar[facility] Emergency [facility] Note* Deanna Malagon RN - 10/21/2023 6:42 AM EST Pt medicated per orders and updated on POC. No further needs at this time. Call light in reach and officer at bedside. [facility]02-[facility] Emergency department Note* Deanna Malagon RN - 10/21/2023 4:38 AM EST Pt medicated per orders and updated on POC. No s/sym of distress. No further needs at this time. Officer at bedside. Call light in reach [facility]02-05-[facility] Emergency department Note* Deanna Malagon RN - 10/21/2023 3:[address] Ko notified of HR. Verbal order for 50mg Lopressor and 5mg IVP and Cardiology will see pt inthe AM [facility]02-05-[facility] Emergency department Note* Deanna Malagon RN - 10/21/2023 3:15 AM EST Aleida ESPINOZA notified that pts HR is still in afib and no maintenance rate control meds ordered forpt and cardiology notified as well Dr Ko [facility]02-05-2024 Emergency department Note* Deanna Malagon RN - 10/21/2023 2:16 AM EST PT medicated again with 2nd dose of digoxin for HR. Pt is asymptomatic at this time with guard at bedside. No further needs at this time call light in reach [facility]02-04-[facility] Emergency department Note* Deanna Malagon RN - 10/20/2023 11:45 PM EST Pt medicated per orders and updated on POC. no further needs at this time. Dandy Operator at door. Urine sent. Pt medicated with total of 10mg (5mg x2 doses) for Afib. [facility]02-[facility] Physician Emergency department Note* Ernesto Leon MD - 10/20/2023 11:09 PM EST Images from the original note were not included. History No chief complaint on file. Initial evaluation performed at 11:[address] Leon. Patient is a 53 y.o. female who presents to the ED for evaluation of Chest discomfort. Pt has been in long term which has prevented him from being able to take his medications for his atrial fibrillation.Pt had two stents placed by sebastian sykes around 7 months ago. Pt is a diagnosed diabetic in which he takes Eliquis for. Though he has not been able to take it due to his incarnation. History provided by: Patient aerial photograph interpreter used?: No There is no problem list [...] IV Lopressor. Additional 5 mg of IV Lopressorordered. [RS] 2355 Case was reviewed with forensic medical examiner, Dr. Ko. Agrees with care plan to continue IV Lopressor therapy. If the patient does not become rate controlled with this he would recommend digoxin loading. Will follow in consultation. He would like the patient admitted to the hospitalist service. [RS] 2356 Case reviewed with hospitalist RN ORTHO via [employer] who has accepted this patient as an [...] I did round on him. He is restingcomfortably with no complaints or concerns at this time. [RS] ED Course User Index [KM] Lavonne Lucio DO [RS] Ernesto Leon MD Clinical Impressions as of 10/22/23 1443 Atrial fibrillation with rapid ventricular response (CMS-HCC) Paroxysmal atrial fibrillation (CMS-HCC) MDM Medical Decision Making Patient is a 53-year-old male with a history of AFib who has been incarcerated for the last 3 weeksand did not have access to any of [...] He believes he has done well with beta- blockers previously. On clinical examination he appears to [...] signing this emergency patient record, the Emergency Physician/RN ORTHO/PA-C attests that all entries made into the electronic medical record by shavon Hawkins prior to the Physician/RN ORTHO/PA-C signature reflect an accurate accounting of the evaluation and care rendered by that Emergency Physician/RN ORTHO/PA-C. The Emergency Physician/RN ORTHO/PA-C assumes full responsibility for those entries.The Emergency Physician/RN ORTHO/PA-C also attests that any patient testing or treatment that was instituted by nursing staff in accordance to Emergency Department Preemptive Guidelines have been reviewed and unless so stated elsewhere in this patient chart, the Physician/RN ORTHO/PA-C agrees with the testing and care provided. No Additional Attestations Donal Nick 10/20/23 2318 Donal Nick 10/20/23 2318 Ernesto Leon MD 10/20/23 2321 Donal Nick 10/20/23 2332 Ernesto Leon MD 10/21/23 2202 [facility]08-18-2023 Hospital Discharge instructions Patient Education 2023 11:28:14 [...] health care provider if you have any questionsor concerns. How do I get ready to [...] require a prescription. You can also purchase [id number] medicines. Medicines may have nicotine in them [...] and encouragement. Call telephone quitlines, such as 8-575-JSUP-NOW, reach out to support groups, or work [...] provider. Document Revised: 08/24/2022 Document Reviewed: 08/24/2022 [employer] Patient Education [address] Follow Up Care 04/17/2023 16:38:20 With:SADIE LINDQUIST FAAFP, KYLE Lujan Address: When: Unknown Comments:return as otherwise [facility] [place] 03-28-2023 Hospital Discharge instructions Patient Education 12/11/2022 11:54:26 [...] done before cancer symptoms start. Screening can helpto identify cancer at an early stage, when [...] if you need screening if you have oneof these risk factors: ?Being of -[place] descent. ?Having a family history of prostate [...] you: Are older than age 55. Are -[place]e. Have a father, brother, or uncle who [...] not tell you if your cancer needs lilia treated. Slow-growing prostate cancer may not need [...] 06/13/2018 Document Revised: 08/15/2018 Document Reviewed: 06/13/2018 [employer] Patient Education [address] [employer] Follow Up Care 12/10/2022 15:10:32 With:LUCIO LINDQUIST, Christy Neumann, URL Address: [address] [place] [address]- When: Unknown [facility] 03-20-2023 Hospital Discharge instructions Patient Education 12/03/2022 18:19:50 [...] these methods. Where to find more information [employer]: www.lung.org [place] [employer]: www.cancer.org Summary Smoking cigarettes is [...] 10/10/2005 Document Revised: 12/04/2018 Document Reviewed: 09/06/2017 [employer] Patient Education [address] [employer] Follow Up Care 11/26/2022 15:41:52 With:SADIE LINDQUIST FAAFP, KYLE Lujan Address: When: Unknown Comments:see referral, please update phone # and HIPAA [facility] [place] 03-08-2023 Evaluation + Plan noteExtracted from:Title: Procedure Note Heart & VascularAuthor:Robin LINDQUIST, Ernesto VarnerDate:11/21/22 Ordered: acetaminophen, 325 mg = 1 tab(s), [...] Stop date 11/21/22 8:17:00 EST, NOW, Start date11/21/22 8:17:00 EST, 11/21/22 8:17:00 EST aspirin, 81 mg = 1 tab(s), Oral, Daily, # 30 tab(s), Refills(s) 3, Pharmacy: [facility]/pharmacy #[id number], 157, cm, 11/21/22 7:04:00 EST, Height/Length Dosing, 70.3, kg, 11/21/22 7:04:00 EST, Weight Dosing atorvastatin, 80 mg = 1 tab(s), Oral, Daily, # 30 tab(s), Refills(s) 3, Pharmacy: [facility]/pharmacy #[id number], 157, cm, 11/21/22 7:04:00 EST, Height/Length Dosing, 70.3, kg, 11/21/22 7:04:00 EST, Weight Dosing clopidogrel, Tab, Misc, Once, Stop date 11/21/22 9:15:28 EST, Physician Stop, 11/21/22 9:15:28 EST clopidogrel, 75 mg = 1 tab(s), Oral, Daily, # 90 tab(s), Refills(s) 3, Pharmacy: [facility]/pharmacy #[id number], 157, cm, 11/21/22 7:04:00 EST, Height/Length [...] Auto Diff 11/13/22 Radiology* [facility] Cardiovascular 11/13/22 [facility]03-08-2023 Hospital Discharge instructions Patient Education 11/21/2022 10:57:57 CV - Cardiovascular PCI Discharge Instructions (CUSTOM) [place], [place] Cardiovascular PCI DISCHARGE INSTRUCTIONS Diet: Resume [...] hours post procedure: Actoplus MetGlucophageGlucophage XR GlucovanceAvandametFortamet Xon-qqevrpbboPsuueqRiuw-lsaasultw GlumetzaJanumetMetaglip RiometGlycomet Minimal pain, soreness and/or discomfort is expected. If you are prescribed an aspirin and/or antiplatelet (such as Plavix, Brilinta or Effient) do NOT stop taking these medications for any reason without talking to your forensic medical examiner Site Care: Do not remove dressing for [...] you are interested in smoking cessation, contact [facility] at [phone], ext. [phone]. In the event you are unable to reach your physician, please call [facility] at [phone] and the bondactor machine operator will assist you. Seek Medicare Care [...] Up Care 11/14/2022 13:54:29 With:Ernesto Kelly Address: [address] [place] [address] [place] [id number] Business (1) When:12/05/2022 12:45:00 [facility]02-08-2023 NoteOPERATIVE NOTE OPERATION DATE: 10/24/2022 PREOPERATIVE DIAGNOSIS: [...] years for screening. CC: Patient's family physicianThe [facility] [id number] NotePROCEDURE: XR PELVIS 1_2 VIEWS HISTORY: Unspecified fall COMPARISON: None. FINDINGS: BONES:No fracture, acute abnormality, or significant arthropathy. SOFT TISSUES:No visible soft tissue swelling. EFFUSION:None visible. OTHER: Negative. IMPRESSION: 1. No acute bone abnormality. Electronically authenticated by: KODY MACIEL Date: 2022-07-12 16:39[facility] [id number] Hospital Discharge instructions Patient Education 05/14/2022 12:17:40 [...] Follow these instructions at home: Medicines Take pafp-cgj-xccssmo and prescription medicines only as told by [...] 08/30/2001 Document Revised: 08/15/2018 Document Reviewed: 09/18/2017 [employer] Patient Education [facility]. Follow Up Care 04/16/2022 13:13:15 With:SADIE MELTON, KYLE Lujan Address: When: Unknown Comments:return for skin lesion removal with CB if he prefers. see referral [facility] 08-29-2022 Evaluation + Plan note Diagnostic Tests Pending * Testosterone Level Total 05/14/22 [facility] Evaluation + Plan note Future Appointments Appointment Date:06/27/2022 09:00:00 AM Scheduled Provider:Fabian LINDQUIST, Varsha Rogers Location:[facility] Appointment Type:URO New Patient General Surgery [place] Evaluation + Plan note Future Appointments Appointment Date:11/07/2022 11:30:00 AM Scheduled Provider:Lizy DUVAL CNP [facility] Follow Up (FT) [facility] Future Appointments Appointment Date:12/05/2022 12:45:00 PM Scheduled Provider:Ernesto Kelly MD Location[facility] Appointment Type:Cardiology Follow Up (FT) Future Scheduled Tests Laboratory* Basic Metabolic Panel 11/13/22 * CBC w/ Auto Diff 11/13/22 Radiology* CV Cardiovascular 11/13/22 [facility] Evaluation + Plan note Future Appointments Appointment Date:12/14/2022 10:15:00 AM Scheduled Provider:Lizy DUVAL CNP [facility] Type:Cardiology Follow Up (FT) Appointment Date:01/01/2023 09:15:00 AM Scheduled Provider:Christy VALDES MD Location:[facility] Appointment Type:URO Office Visit Future Scheduled Tests Laboratory* Basic Metabolic Panel 11/13/22 * CBC w/ Auto Diff 11/13/22 Radiology* CV Cardiovascular 11/13/22 [facility] Evaluation + Plan note Future Appointments Appointment Date:01/01/2023 09:15:00 AM Scheduled Provider:Christy VALDES MD Location:[facility] Appointment Type:URO Office Visit Future Scheduled Tests Laboratory* Basic Metabolic Panel 11/13/22 * CBC w/ Auto Diff 11/13/22 Radiology* CV Cardiovascular 11/13/22 [facility] Future Appointments Appointment Date:07/09/2023 10:15:00 AM Scheduled Provider:Christy VALDES MD Location:[facility] Appointment Type:URO Office Visit Future Scheduled Tests Laboratory* PSA Free & Total 01/01/23 * Basic Metabolic Panel 11/13/22 * CBC w/ Auto Diff 11/13/22 Radiology* CV Cardiovascular 11/13/22 [facility] Evaluation + Plan note Future Appointments Appointment Date:02/13/2024 02:15:00 PM Scheduled Provider:Maxime Hull MD Location:[facility] Appointment Type:FM Open Future Scheduled Tests Laboratory* PSA Free & Total 01/01/23 * Basic Metabolic Panel 11/13/22 * CBC w/ Auto Diff 11/13/22 Radiology* CV Cardiovascular 11/13/22 [facility] evaluation + Plan note Future Appointments Appointment Date:10/19/2024 01:15:00 PM Scheduled Provider:Maxime Hull MD Location:[facility] Appointment Type:FM Open [facility] Evaluation + Plan note Future Appointments Appointment Date:10/19/2024 01:15:00 PM Scheduled Provider:Maxime Hull MD Location:[facility] Appointment Type:FM Open Appointment Date:12/30/2024 10:45:00 AM Scheduled Provider:Varsha Peralta MD Location:[facility] Appointment Type:URO Office Visit [facility] evaluation + Plan note Future Appointments Appointment Date:01/15/2025 11:00:00 AM Scheduled Provider: [facility] Type:CT Abdomen/Pelvis Combo (FT) Appointment Date:02/10/2025 01:00:00 PM Scheduled Provider:Varsha Peralta MD Location:[facility] Appointment Type:URO Office Visit Appointment Date:02/23/2025 01:40:00 PM Scheduled Provider:Maxime Hull MD Location:[facility] Appointment Type: Open Diagnostic Tests Pending * Testosterone Level Total 01/06/25 * Urine Cytology ([facility]) 01/06/25 Future Scheduled Tests Radiology* CT Urogram 01/15/25 [facility] evaluation + Plan note Future Appointments Appointment Date:02/10/2025 01:00:00 PM Scheduled Provider:Varsha Peralta MD Location:[facility] Appointment Type:URO Procedure 15 min Appointment Date:02/23/2025 01:40:00 PM Scheduled Provider:Maxime Hull MD Location:[facility] Appointment Type:[facility] Evaluation + Plan note Future Appointments Appointment Date:02/23/2025 01:40:00 PM Scheduled Provider:Maxime Hull MD Location:[facility] Appointment Type: Open Future Scheduled Tests Laboratory* Estradiol Level 5/15/25 * Hematocrit 5/15/25 * Luteinizing Hormone 5/15/25 * Testosterone Level Total 515/25 [facility] evaluation + Plan note Future Appointments Appointment Date:08/11/2025 09:00:00 AM Scheduled Provider: Location:[facility] Appointment Type:URO Nurse Visit Appointment Date:08/18/2025 10:45:00 AM Scheduled Provider:Varsha Peralta MD Location:[facility] Appointment Type:URO Office Visit Appointment Date:09/27/2025 02:20:00 PM Scheduled Provider:SERINA ROTH CNP Location:[facility] Appointment Type: Open Future Scheduled Tests Laboratory* Estradiol Level 515/25 * Hematocrit 5/15/25 * Luteinizing Hormone 515/25 * Testosterone Level Total 515/25 [facility] evaluation + Plan note Future Appointments Appointment Date:06/15/2025 10:00:00 AM Scheduled Provider: Location:[facility] Appointment Type:URO Nurse Visit Appointment Date:08/11/2025 09:00:00 AM Scheduled Provider: Location:[facility] Appointment Type:URO Nurse Visit Appointment Date:08/18/2025 10:45:00 AM Scheduled Provider:Varsha Peralta MD Location:[facility] Appointment Type:URO Office Visit Appointment Date:09/27/2025 02:20:00 PM Scheduled Provider:SERINA ROTH CNP Location:[facility] Appointment Type: Open Future Scheduled Tests Laboratory* Estradiol Level 5/15/25 * Hematocrit 5/15/25 * Luteinizing Hormone 01/28/25 * Testosterone Level Total 01/28/25 [facility] evaluation + Plan note Future Appointments Appointment Date:06/29/2025 10:30:00 AM Scheduled Provider: Location:[facility] Appointment Type:URO Nurse Visit Appointment Date:08/11/2025 09:00:00 AM Scheduled Provider: Location:[facility] Appointment Type:URO Nurse Visit Appointment Date:08/18/2025 10:45:00 AM Scheduled Provider:Varsha Peralta MD Location:[facility] Appointment Type:URO Office Visit Appointment Date:09/27/2025 02:20:00 PM Scheduled Provider:SERINA ROTH CNP Location:[facility] Appointment Type: Open Future Scheduled Tests Laboratory* Estradiol Level 01/28/25 * Hematocrit 15 * Luteinizing Hormone 01/28/25 * Testosterone Level Total 01/28/25 [facility] evaluation + Plan note Future Appointments Appointment Date:07/13/2025 11:00:00 AM Scheduled Provider: Location:[facility] Appointment Type:URO Nurse Visit Appointment Date:08/11/2025 09:00:00 AM Scheduled Provider: Location:[facility] Appointment Type:URO Nurse Visit Appointment Date:08/18/2025 10:45:00 AM Scheduled Provider:Varsha Peralta MD Location:[facility] Appointment Type:URO Office Visit Appointment Date:09/27/2025 02:20:00 PM Scheduled Provider:SERINA ROTH CNP Location:[facility] Appointment Type: Open Future Scheduled Tests Laboratory* Estradiol Level 1525 * Hematocrit 515/25 * Luteinizing Hormone 01/28/25 * Testosterone Level Total 01/28/25 [facility] evaluation note* Diagnosis Memory impairment- Primary Memory loss Complex regional pain syndrome type 1, affecting unspecified site History of traumatic brain injury Personal history of traumatic brain injury [facility] Diagnosis Paroxysmal atrial fibrillation (CMS-HCC)- Primary Atrial fibrillation Preop cardiovascular exam- Primary Pre-operative cardiovascular examination Coronary artery disease involving [place] coronary artery of [place] heart without angina pectoris Paroxysmal atrial fibrillation (CMS-HCC) Atrial fibrillation Pulmonary emphysema, unspecified emphysema type (CMS-HCC) Hyperlipemia, mixed Mixed hyperlipidemia Paroxysmal atrial fibrillation (CMS-HCC) Atrial fibrillation [facility] Diagnosis Memory impairment- Primary Memory loss PTSD (post-traumatic stress disorder) (CMS/HCC) Posttraumatic stress disorder Anxiety and depression (CMS/HCC) Anisocoria Complex regional pain syndrome type 1, affecting unspecified site documented [facility]* Diagnosis Atrial fibrillation with rapid ventricular response (CMS-HCC)- Primary Atrial fibrillation with rapid ventricular response (CMS-HCC) Paroxysmal atrial fibrillation (CMS-HCC) Atrial fibrillation Paroxysmal atrial fibrillation (CMS-HCC) Atrial fibrillation [facility]* Diagnosis Paroxysmal atrial fibrillation (CMS-HCC)- Primary Atrial fibrillation Coronary artery disease involving [place] coronary artery of [place] heart without angina pectoris documented [facility]* Diagnosis Coronary artery disease involving [place] coronary artery of [place] heart without angina pectoris- Primary Paroxysmal atrial fibrillation (CMS-HCC) Atrial fibrillation Hyperlipemia, mixed Mixed hyperlipidemia [facility]* Diagnosis Paroxysmal atrial fibrillation (CMS-HCC)- Primary Atrial fibrillation Paroxysmal atrial fibrillation (CMS-HCC)- Primary Atrial fibrillation Paroxysmal atrial fibrillation (CMS-HCC) Atrial fibrillation [facility]* Diagnosis Paroxysmal atrial fibrillation (CMS-HCC) Atrial fibrillation Paroxysmal atrial fibrillation (CMS-HCC)- Primary Atrial fibrillation Paroxysmal atrial fibrillation (CMS-HCC) Atrial fibrillation [facility]* Diagnosis Paroxysmal atrial fibrillation (CMS-HCC)- Primary Atrial fibrillation [facility] Narrative No data available for this section [facility] Discharge instructions No data available for this section [facility] Dis[facility] instructionsNot on file documented in this encounterProKet[facility] SystemInstructionsNot on file documented in this encounterProMedica [...] data available for this section [facility] [place] Reason for referral (narrative) Referred by: Edward URBAN MD [facility] General Surgery [place] Summary Purpose Family History No Family History [...] Directives No Advanced Directives Records Found Date ActivatedDate InactivatedComments01/08/2024 4:31 AM01/10/2024 12:17 PMDate ActivatedDate InactivatedComments12/01/2023 3:08 PM12/03/2023 12:52 PMDate ActivatedDate InactivatedComments10/21/2023 12:37 AM10/22/2023 7:35 PMCode Status Date ActivatedDate InactivatedCommentsFull Code2/01/2024 12:37 AM10/22/2023 7:35 PM Code StatusDate ActivatedDate InactivatedCommentsFull Code10/21/2023 12:37 AM 10/22/2023 7:35 PMDate ActivatedDate InactivatedComments01/08/2024 4:31 AM01/10/2024 12:17 PMDate ActivatedDate InactivatedComments12/01/2023 3:08 PM12/03/2023 12:52 PMDate ActivatedDate InactivatedComments10/21/2023 12:37 AM10/22/2023 7:35 PM Reason for Referral SpecialtyDiagnoses / ProceduresReferred By ContactReferred To Contact Procedures Discharge Follow-Up El Dobson, REDDY-DESKTOP SUPPORT TECHNICIAN [address], [place] [address] Referral IDStatusReasonStart DateExpiration DateVisits RequestedVisits [id number] / Procedures Referred By ContactReferred To Contact Diagnoses Paroxysmal atrial fibrillation ([facility]) Procedures Follow-up with primary care provider El Dobson, REDDY-DESKTOP SUPPORT TECHNICIAN [address], [place] [address] Referral IDStatusReasonStart DateExpiration DateVisits RequestedVisits [id number] / Procedures Referred By ContactReferred To Contact Procedures Adult diet El Dobson, CLOTHES IRONER-DESKTOP SUPPORT TECHNICIAN [address], [place] [address] Referral IDStatusReasonStart DateExpiration DateVisits RequestedVisits [id number] Review Additional Source Comments (unrecognized sect ion and [...] section and content) DATE CREATED AUTHOR 03/07/2018 [facility] DATE CREATED AUTHOR AUTHOR'S ORGANIZ ATION 03/12/2018 [facility] DATE CREATED AUTHOR AUTHOR'S ORGANIZ ATION 11/21/2022 [facility] DATE CREATED AUTHOR AUTHOR'S ORGANIZ ATION 04/18/2024 [facility] DATE CREATED AUTHOR AUTHOR'S ORGANIZ ATION 07/22/2024 [facility] DATE CREATED AUTHOR AUTHOR'S ORGANIZ ATION 09/29/2024 [facility] DATE CREATED AUTHOR AUTHOR'S ORGANIZ ATION 10/20/2024 [facility] DATE CREATED AUTHOR AUTHOR'S ORGANIZ ATION 12/05/2024 [facility] DATE CREATED AUTHOR AUTHOR'S ORGANIZ ATION 01/09/2025 [facility] DATE CREATED AUTHOR AUTHOR'S ORGANIZ ATION 02/26/2025 [facility] DATE CREATED AUTHOR AUTHOR'S ORGANIZ ATION 03/31/2025 [facility] DATE CREATED AUTHOR AUTHOR'S ORGANIZ ATION 07/20/2025 [facility] DATE CREATED AUTHOR AUTHOR'S ORGANIZ ATION 07/29/2025 [facility] Care Team (unrecognized sect ion and content) Team MemberRelationshipSpecialtyStart DateEnd Date Gideon Luna MD [address] [place] [phone] PCP - GeneralFami Medicine04/08/24Team MemberRelationshipSpecialtyStart DateEnd Date Gideon Luna MD [address] [place] [phone] PCP - GeneralFamily Medicine04/08/24Team MemberRelationshipSpecialtyStart DateEnd Date Gideon Luna MD [address] [place] [phone] PCP - GeneralFamily Medicine04/08/24 Wendy Zhong NP [address] [place], [place] [phone] Nurse InosoypyxueyOhmlyrtlq23/4/24 Regis Guerrero DO [address] [place] [address] Referring VtpvvvotnGnocrmgew07/4/24Team MemberRelationshipSpecialtyStart DateEnd Date Maxime Hull MD [address] [place] [address] PCP - GeneralFamily Pwhezjpf83/11/24Team MemberRelationshipSpecialtyStart Date End Date Maxime Hull MD [address] [place] [address] PCP - GeneralFamily Tlbsokac90/11/24Team MemberRelationshipSpecialtyStart Date End Date Maxime Hull MD [address] [place] [address] PCP - GeneralFamily Rtcvhyrz98/11/24Team MemberRelationshipSpecialtyStart Date End Date Gideon Luna MD [address] [place] [phone] PCP - GeneralFamily Medicine04/08/24 Wendy Zhong, ALEXIS [address] [place] [address] Nurse PsdcfmgkfuviKenzjsdah66/4/24 Regis Guerrero DO [address] [facility] [address] [place] [address] Referring DeezelpciQibjcguzi31/4/24Team MemberRelationshipSpecialtyStart DateEnd Date No Pcp, [place] [address] PCP - GeneralFamily Medicine10/20/23Team MemberRelationshipSpecialtyStart DateEnd Date No Pcp, [place] [address] PCP - GeneralFamily Medicine10/20/23Team MemberRelationshipSpecialtyStart DateEnd Date No Pcp, [place] [address] PCP - GeneralFamily Medicine10/20/23Team MemberRelationshipSpecialtyStart DateEnd Date Kathy Noel [address] [place] [address] [place] [address] PCP - GeneralFamily Medicine11/08/23Team MemberRelationshipSpecialtyStart DateEnd Date No Pcp, [place] [address] PCP - GeneralFamily Medicine12/01/23Team MemberRelationshipSpecialtyStart DateEnd Date No Pcp, [place] [address] PCP - GeneralFamily Medicine12/01/23Team MemberRelationshipSpecialtyStart DateEnd Date No Pcp, [place] [address] PCP - GeneralFamily Medicine12/01/23Team MemberRelationshipSpecialtyStart DateEnd Date No Pcp, [place] [address] PCP - GeneralFamily Medicine12/01/23Team MemberRelationshipSpecialtyStart DateEnd Date Maxime Hull MD [address] [place] [address] PCP - GeneralFamily Ybptsehj13/11/24Team MemberRelationshipSpecialtyStart Date End Date Maxime Hull MD [address] [place] [address] [facility] - [facility] Brvkiesj80/11/24Team MemberRelationshipSpecialtyStart Date End Date Maxime Hull MD [address] [place] [address] [facility] - [facility] Wukmmlij88/11/24 Reason for Visit (unrecogniz ed section and content) ReasonOnset DateCommentsPreop Ohzfdmggj67/24/2025ReasonCommentsPre-op ExamPREOP CLEARANCE DR PARK HERNISAtrial FibrillationCoronary Artery DiseaseReasonComments Memory LossLeg PainReasonCommentsAtrial FibrillationAssoc with SOB and chest tightness. HR 140-180s. Pt has hx of AFIb and states he has adverse reaction to cardizem. 2029 he received ASASpecialtyDiagnoses / ProceduresReferred By Contact Referred To Contact Diagnoses Tachycardia Atrial fibrillation with rapid ventricular response (CMS-HCC) Arie Foley MD [address], [facility] [address] [place] [address] Referral IDStatusReasonStart DateExpiration DateVisits RequestedVisits [id number] PT [facility] 10/21/2023 AFIB SCHED W/PTReasonOnset DateCommentsCardiac Medication Lyryoot21/17/2024ReasonComments Follow-upHosp f/u [facility]03 - sched appt w/ptReasonOnset DateCommentsMed [id number] DateCommentsEP Surgery ( PVI/Typical)4ReasonCommentsNew PatientNP A FIB PER MES SCHED W/ PT SpecialtyDiagnoses / ProceduresReferred By ContactReferred To ContactCardiology Diagnoses Paroxysmal atrial fibrillation (CMS-HCC) Jude Alberto, CLOTHES IRONER-DESKTOP SUPPORT TECHNICIAN [address] [place] [address] Phone: tel: fax: [facility] [address] [place] [address] Phone: tel: fax: Referral IDStatusReasonStart DateExpiration DateVisits RequestedVisits [id number] Review Specialty Services Required /[id number] DateCommentsEp Surgery ( PT Education)08/26/2024 ReasonCommentsFollow-upS/P Ablation @ TTHAtrial FibrillationReasonCommentsMed Refill Scheduled Active and Recently Administ ered Medications (unrecognized section and content) Medication Order//02/2024 apixaban (ELIQUIS) tablet 5 mg 5 mg, oral, 2 times daily, First dose on Sat10/21/23 at 0900, Indication: Nonvalvular Atrial Fibrillation (NVAF) * 0815 (Given - Provider: Leyda Richard RN) * 2208 (Given - Provider: Vicki Chiang RN) * 1146 (Given - Provider: Amelie Lara - Comment: Pt was NPO.) digoxin (LANOXIN) injection 170 mcg (COMPLETED) 170 mcg (2.5 mcg/kg 68 kg), intravenous, Once, On Sat10/21/23 at 0035, For 1 dose, Administer IVP slowly over at least 5 minutes. Look-alike/sound-alike medication - verify indication for use. * 0121 (Given - Provider: Deanna Malagon, DOMINGO) digoxin (LANOXIN) injection 170 mcg (COMPLETED) 170 mcg (2.5 mcg/kg 68 kg), intravenous, Once, On Sat10/21/23 at 0155, For 1 dose, Administer IVP slowly over at least 5 minutes. Look-alike/sound-alike medication - verify indication for use. * 0206 (Given - Provider: Deanna Malagon, DOMINGO) digoxin (LANOXIN) injection 250 mcg (COMPLETED) 250 mcg, intravenous, Once, On Sat10/21/23 at 1230, For 1 dose, Administer IVP slowly over at least 5 minutes. Look-alike/sound-alike medication - verify indication for use. * 1328 (Given - Provider: Lizy Mejia RN) heparin (porcine) injection 5,000 Units (CANCELED) 5,000 Units, subcutaneous, Every 8 hours scheduled, First dose on Sat10/21/23 at 0040, Notify prescriber if INR greater than 1.9, hemoglobin less than 10 mg/dL, aPTT greater than 40 seconds, and/or platelet count less than 100,000/mm Look-alike/sound-alike medication - verify indication for use. Observe for bleeding. * 0124 (Given - Provider: Deanna Malagon RN) * 0646 (Given - Provider: Deanna Malagon RN) metoprolol (LOPRESSOR) injection 5 mg (COMPLETED) 5 mg, intravenous, Once, On Sat10/20/23 at 2315, For 1 dose, Look-alike/sound-alike medication - verify indication for use. * 2321 (Given - Provider: Deanna Malagon RN) metoprolol (LOPRESSOR) injection 5 mg (COMPLETED) 5 mg, intravenous, Once, On Sat10/20/23 at 2335, For 1 dose, Look-alike/sound-alike medication - verify indication for use. * 2338 (Given - Provider: Deanna Malagon RN) metoprolol (LOPRESSOR) injection 5 mg (COMPLETED) 5 mg, intravenous, Once, On Sat10/20/23 at 2355, For 1 dose, Look-alike/sound-alike medication - verify indication for use. * 0040 (Given - Provider: Deanna Malagon RN) metoprolol (LOPRESSOR) injection 5 mg (COMPLETED) 5 mg, intravenous, Once, On Sat10/21/23 at 0400, For 1 dose, Look-alike/sound-alike medication - verify indication for use. * 0432 (Given - Provider: Deanna Malagon RN) metoprolol succinate XL (TOPROL XL) 24 hr tablet 25 mg (CANCELED) 25 mg, oral, Daily, First dose on Sat10/21/23 at 0900, Look-alike/sound-alike medication - verify indication for use. Do not crush or chew. * 0815 (Given - Provider: Leyda Richard RN) metoprolol succinate XL (TOPROL XL) 24 hr tablet 25 mg 25 mg, oral, Daily, First dose on Sat10/22/23 at 0900, Hold for systolic blood pressure less than 100 or heart rate less than 60 Look-alike/sound-alike medication - verify indication for use. Do not crush or chew. * 0900 (Not Given - Provider: Amelie Lara - Reason: Contraindicated - Comment: Primary nurse notified) metoprolol tartrate (LOPRESSOR) tablet 50 mg (COMPLETED) 50 mg, oral, Once, On Sat10/21/23 at 0400, For 1 dose, Look-alike/sound-alike medication - verify indication for use. * 0433 (Given - Provider: Deanna Malagon, DOMINGO) pantoprazole (PROTONIX) EC tablet 40 mg 40 mg, oral, Every morning before breakfast, First dose on Sat10/21/23 at 0700, Look-alike/sound-alike medication - verify indication for use. If patient is receiving enteral feeding, consider alternative PPI or continue IV pantoprazole until the delayed-release tablet can be taken orally, Indication: Dispense As Written (MARIA DE JESUS) * 0700 (Given - Provider: Leyda Richard RN) * 0542 (Given - Provider: Vicki Chiang, [place]) * 0700 (Canceled Entry - Provider: Vicki Chiang, [place]) sodium chloride 0.9 % bolus (COMPLETED) 1,000 mL, intravenous, at 984 mL/hr, Administer over 61 Minutes, Once, On Sat10/20/23 at 2315, For 1dose * 2315 (Bolus from Existing Bag - Provider: Deanna Malagon, [place]) sodium chloride 0.9 % flush 3 mL 3 mL, intravenous, Every 12 hours scheduled, First dose on Sat10/20/23 at 2315 * 0209 (Given - Provider: Deanna Malagon, RN) * 1328 (Given - Provider: Lizy Mejia, [place]) * 2208 (Given - Provider: Vicki Chiang, [place]) * 0900 (Not Given - Provider: Aleida Orlando RN - Reason: IV infusing) sodium chloride 0.9 % flush 3 mL 3 mL, intravenous, Every 12 hours scheduled, First dose on Sat10/22/23 at 0915, Intra-Procedure (CV) * 0915 (Not Given - Provider: Aleida Orlando RN - Reason: NPO) Medication Order//02/2024 acetaminophen (TYLENOL) tablet 650 mg 650 mg, oral, Every 4 hours PRN, mild pain - pain scale 1-3, headaches, temperature greater than 38C, Temperature greater than 38.3 C, Starting on Sat10/21/23 at 0036, [Warning: Total Acetaminophen not to exceed more than 4 grams (4000 mg) in 24 hours] * 1341 (Given - Provider: Lizy Mejia RN) * 1145 (Given - Provider: Amelie Lara) calcium [...] 4 Hours, As needed, ionized calcium 3.4 mg/dLor less, Starting on Sat10/21/23 at 0036, IV administration of calcium via a central or deep vein ispreferred. Avoid administration in small hand veins. VESICANT [...] less than 70 mg/dL, Starting on Sat10/21/23 [id number], If patient conscious and taking PO. If blood glucose is not greater than 70 mg/dL after initial treatment, repeat treatment. dextrose 5 % (D5W) infusion 100 mL/hr, intravenous, Continuous PRN, blood glucose less than 70 mg/dL, Starting on Sat10/21/23 [id number], Use immediately following dextrose 50% or glucagon treatment for patients who are unconsciousor NPO. Contact prescriber for additional orders. If blood glucose is not greater than 70 mg/dL after initial treatment, repeat treatment. dextrose 50 % in water (D50W) 50% solution 25 mL 25 mL, intravenous, As needed, low blood sugar, blood glucose less than 70 mg/dL and unconscious orNPO with IV access, Starting on Sat10/21/23 at [...] mg/dL after initial treatment, repeat treatment. VESICANT (RED)Warning: HYPERTONIC solution. glucagon HCL injection 1 mg [...] additional orders. If blood glucose is not greaterthan 70 mg/dL after initial treatment, repeat treatment. kit for Tc 99m-sestamibi injection 10 millicurie (COMPLETED) 10 millicurie, intravenous, Once in imaging, contrast, Radiopharmaceutical, Starting on Sat10/22/23 at 0816, For 1 dose, Additional Imaging Orders * 0810 (Given - Provider: Twyla Ngo - Comment: 10.3 mCi Cardiolite) kit for Tc 99m-sestamibi injection 30 millicurie (COMPLETED) 30 millicurie, intravenous, Once in imaging, contrast, Radiopharmaceutical, Starting on Sat10/22/23 at 0816, For 1 dose, Additional Imaging Orders * 1002 (Given - Provider: Twyla Ngo - Comment: 30.6 mCi CArdiolite) [...] complete. With each magnesium result continue the replacementorders as needed. ondansetron (PF) (ZOFRAN) injection 4 [...] administering in feeding tube, flush before and afterper policy and monitor potassium levels potassium chloride [...] seconds followed by 5 mL saline flush. * 1002 (Given - Provider: Mami Ferguson RN) sennosides-docusate sodium (SENOKOT-S) 8.6-50 mg 1 tablet 1 tablet, oral, Every 12 hours PRN, constipation, Starting on Sat10/21/23 at 0036 sod phos di, mono-K phos mono (K-PHOS NEUTRAL) 250 mg tablet 2 tablet(Linked Group 2) 2 tablet, oral, As needed, for phosphorus level 2.3 mg/dL or less., Starting on Sat10/21/23 at 0036,If dose administered, recheck phosphorus level 4 hours after last dose. Look-alike/sound-alike medication - verify indication for use. Give with a full glass of water. sodium chloride 0.9 % flush 10 mL (COMPLETED) 10 mL, intravenous, Once in imaging, line care, Nuclear Medicine, Starting on Sat10/22/23 at 0816, For 1 dose, Additional Imaging Orders * 1002 (Given - Provider: Twyla Ngo) sodium chloride 0.9 % flush 10 mL (COMPLETED) 10 mL, intravenous, Once in imaging, line care, Nuclear Medicine, Starting on Sat10/22/23 at 0816, For 1 dose, Additional Imaging Orders * 0810 (Given - Provider: Twyla Ngo) sodium chloride 0.9 % flush [...] Minutes, As needed, line care, line care afterIVPB administration, Starting on Sat10/21/23 at 0036 sodium [...] Administer over 6 hours via dedicated line (peripheralline). If administered, recheck phosphorus level 4 hours after infusion complete. Order Group 1: potassium chloride (KLOR-CON M [...] administering in feeding tube, flush before and afterper policy and monitor potassium levels Group 2: sodium phosphate 20 mmol in sodium chloride 0.9 % 250 mL IVPBJump to med 20 mmol, intravenous, at 42.8 mL/hr, Administer over 6 Hours, As needed, for phosphorus level 2.3 mg/dL or less, Starting on Sat10/21/23 at 0036, Administer over 6 hours via dedicated line (peripheralline). If administered, recheck phosphorus level 4 hours [...] mg/dL or less., Starting on Sat10/21/23 at 0036,If dose administered, recheck phosphorus level 4 hours [...] BE BASED ON THE PRIMARY CLINICAL RECORDS. [facility]. provides no warranty or guarantee of the accuracy or completeness of information in this document.
[2025-08-04 09:21] LABS: Hematocrit 46.5 % (42.0-54.0)
[2025-08-04 10:00] LABS: Prostate Specific Antigen Dx 1.23 ng/mL (<=4.00)
== END 2025-08-04 08:27 | disposition home or self-care (01) ==
LOC: LAB 08:29
PROVIDERS: PCP Nurse Practitioner Family; Visit Provider Urology
DX: E29.1 Testicular hypofunction (principal); R97.20 Elevated prostate specific antigen [PSA]
CPT/HCPCS: 36415; 84153; 84403; 85014